=== PATIENT | female | born 1960 | race Caucasian/White ===

== ENCOUNTER 2018-03-02 09:22 | Inpatient (IN) ==
[2018-03-02] MEDS ORDERED: Sod Chloride 0.9% Inj 1,000 ML IV.SIG ONE ×2 (10:14→22:15)
--- NOTE | 2018-03-02 10:18 | ED ---
HPI General Chief complaint: Nausea/Vomiting/Diarrhea Stated complaint: N/V/D x 4 months Source: patient Mode of arrival: ambulatory Limitations: no limitations History of Present Illness HPI Narrative: Patient is a 58-year-old female with history of chronic diarrhea , presents to the emergency room with complaints of possible dehydration. Patient reports that for the past 4 months, she has had diarrhea about 3-4 episodes per day. She does follow-up with a candy maker, Dr. Thomas who performed an endoscopy last week which was essentially benign. Patient reports that she is due for colonoscopy next week. Patient reports that she has been having increased abdominal cramping in her mouth feels dry, reports that she is able to eat and drink but is concerned about possible dehydration. Patient reports that she does follow Dr. Downey as she has history of lymphoma, she did have CT of her chest, abdomen and pelvis in October which was benign. Patient denies any fevers or chills, reports 4 months of nausea, vomiting and diarrhea. Related Data Home Medications Medication Instructions Recorded Confirmed atorvastatin 20 mg PO DAILY 03/02/18 03/02/18 fenofibrate 50 mg PO DAILY 03/02/18 03/02/18 metformin 1,000 mg PO HS 03/02/18 03/02/18 omeprazole 20 mg PO DAILY 03/02/18 03/02/18 ondansetron [Zofran ODT] 4 mg PO TID PRN 03/02/18 03/02/18 Allergies Allergy/AdvReac Type Severity Reaction Status Date / Time No Known Allergies Allergy Unverified 03/02/18 09:30 Review of Systems ROS: all other systems reviewed are negative FORMERLY [facility], [facility]–1983 Medical History Medical History Diabetes (Acute) High cholesterol (Acute) History of appendicitis (Acute) History of benign tumor of tongue (Acute) History of chemotherapy (Acute) History of hysterectomy (Acute) History of lymphoma (Acute) Surgical History Surgical History History of arthroplasty of knee (Acute) Social History Social History Substance History: No History of Abuse Smoking Status: Current every day smoker Tobacco Type: Cigarettes How Often Do You Have a Drink Containing Alcohol: 2 to 4 times a month Recent Travel in [facility] within the Last 8 Weeks: No Recent Out of Country Travel within the Last 8 Weeks: No Immunization History Tetanus Immunization: Unsure Hx Influenza Vaccine This Season: No Exam Narrative Exam Narrative: GENERAL: NAD SKIN: Focused skin assessment warm/dry. HEAD: Atraumatic. Normocephalic. EYES: Pupils equal and round. No scleral icterus. No injection or drainage. ENT: No nasal bleeding or discharge. Mucous membranes pink and dry NECK: Trachea midline. No JVD. CARDIOVASCULAR: Regular rate and rhythm. No murmur appreciated. RESPIRATORY: No accessory muscle use. Clear to auscultation. Breath sounds equal bilaterally. GASTROINTESTINAL: Abdomen soft, non-tender, nondistended. Hepatic and splenic margins not palpable. MUSCULOSKELETAL: No obvious deformities. No clubbing. No cyanosis. No edema. NEUROLOGICAL: Awake and alert. No obvious cranial nerve deficits. Motor grossly within normal limits. Normal speech. PSYCHIATRIC: Appropriate mood and affect; insight and judgment normal. Course Initial Documented Vital Signs Pulse Rate 84 03/02/18 09:29 Respiratory Rate 18 03/02/18 09:29 Blood Pressure 122/72 03/02/18 09:29 Pulse Oximetry 95 03/02/18 09:29 Last Documented Vital Signs Temperature 98.8 F 03/02/18 09:30 Pulse Rate 80 03/02/18 13:58 Respiratory Rate 18 03/02/18 13:58 Blood Pressure 121/47 L 03/02/18 14:31 Pulse Oximetry 96 03/02/18 13:58 Medical Decision Making VEE Attestation VEE supervised visit: No MDM Narrative Medical decision making narrative: During the course of the patients emergency department visit, the patients history, examination, and differential diagnosis were reviewed with the patient. The patient was placed on a library monitor with oximetry and frequent blood pressure monitoring. The patient had an IV access obtained and blood work sent for analysis. The patient was initially provided IVF as well as IV zofran The patients laboratory studies were reviewed CT of abdomen and pelvis: wall thickening of the proximal half of the transverse colon with questionable submucosal edema and mild adjacent inflammation that could represent colitis - she did have an episode of hypotension while in the ER - plan to obs her Case reviewed with Dr. Santos's service who accepts pt for admission Medical Screen Exam Complete: Yes Emergency Medical Condition: Yes Differential Diagnosis Differential Diagnosis: electrolyte abnormality, dehydration, sbo, pancreatitis , hepatitis Lab Data Result diagrams: 03/02/18 10:15 03/02/18 10:15 Lab Results 03/02/18 03/02/18 03/02/18 Range/Units 09:55 10:15 10:15 CBC w Diff Auto diff final WBC 5.1 (4.0-11.0) th/mm3 RBC 2.95 L (4.00-5.30) mil/mm3 Hgb 11.3 L (11.6-15.3) gm/dL Hct 32.0 L (35.0-46.0) % MCV 108.2 H (80.0-100.0) fL MCH 38.3 H (27.0-34.0) pg MCHC 35.4 (32.0-36.0) % RDW 13.5 (11.6-17.2) % Plt Count 102 L (150-450) th/mm3 MPV 10.0 (7.0-11.0) fL Neut % (Auto) 78.4 H (16.0-70.0) % Lymph % (Auto) 11.5 (9.0-44.0) % [place] % (Auto) 8.0 (0.0-8.0) % Eos % (Auto) 1.1 (0.0-4.0) % Baso % (Auto) 1.0 (0.0-2.0) % Neut # (Auto) 3.9 (1.8-7.7) th/mm3 Lymph # (Auto) 0.6 L (1.0-4.8) th/mm3 [place] # (Auto) 0.4 (0.0-0.9) th/mm3 Eos # (Auto) 0.1 (0.0-0.4) th/mm3 Baso # (Auto) 0.1 (0.0-0.2) th/mm3 WBC Differential . Differential Comment . Sodium 141 (136-145) meq/L Potassium 3.0 L (3.5-5.1) meq/L Chloride 101 (98-107) meq/L Carbon Dioxide 26.9 (21.0-32.0) meq/L Anion Gap 13 (5-15) meq/L BUN 6 L (7-18) mg/dL Creatinine 0.95 (0.50-1.00) mg/dL Estimated GFR 60 L (>89) mL/min POC Glucose 159 H (68-110) mg/dl Random Glucose 149 H (74-106) mg/dL Calcium 7.4 L* (8.5-10.1) mg/dL Prot Corrected Calcium 7.7 L (8.5-10.1) mg/dL Total Bilirubin 1.9 H (0.2-1.0) mg/dL AST 309 H (15-37) U/L ALT 119 H (10-53) U/L Alkaline Phosphatase 210 H (45-117) U/L Total Protein 6.6 (6.4-8.2) g/dL Albumin 2.5 L (3.4-5.0) g/dL Lipase 309 (73-393) U/L Ur Collection Type Urine Color (Yellw/Straw) Urine Clarity (Clear) Urine pH (5.0-8.5) Ur Specific Mars (1.002-1.035) Urine Protein (Neg-Trace) mg/dL Urine Glucose (UA) (Negative) mg/dL Urine Ketones (Negative) mg/dL Urine Occult Blood (Negative) Urine Nitrate (Negative) Urine Bilirubin (Negative) Urine Ictotest (Negative) Urine Urobilinogen (Less than 2) mg/dL Ur Leukocyte Esterase (Negative) Urine RBC (0-3) /hpf Urine WBC (0-5) /hpf Urine WBC Clumps (None) Ur Squamous Epith Cells (0-5) /hpf Ur Transition Epith Cell (None) /hpf Amorphous Sediment (None) /hpf Urine Bacteria (None) /hpf Fine Granular Casts (None) /lpf Coarse Granular Casts (None) /lpf Urine Mucus (Occasional) /lpf Micro UA Comment Ur Microscopic Review Urine Culture Comments Urine Collection Time hours 03/02/18 Range/Units 11:35 CBC w Diff WBC (4.0-11.0) th/mm3 RBC (4.00-5.30) mil/mm3 Hgb (11.6-15.3) gm/dL Hct (35.0-46.0) % MCV (80.0-100.0) fL MCH (27.0-34.0) pg MCHC (32.0-36.0) % RDW (11.6-17.2) % Plt Count (150-450) th/mm3 MPV (7.0-11.0) fL Neut % (Auto) (16.0-70.0) % Lymph % (Auto) (9.0-44.0) % [place] % (Auto) (0.0-8.0) % Eos % (Auto) (0.0-4.0) % Baso % (Auto) (0.0-2.0) % Neut # (Auto) (1.8-7.7) th/mm3 Lymph # (Auto) (1.0-4.8) th/mm3 [place] # (Auto) (0.0-0.9) th/mm3 Eos # (Auto) (0.0-0.4) th/mm3 Baso # (Auto) (0.0-0.2) th/mm3 WBC Differential Differential Comment Sodium (136-145) meq/L Potassium (3.5-5.1) meq/L Chloride (98-107) meq/L Carbon Dioxide (21.0-32.0) meq/L Anion Gap (5-15) meq/L BUN (7-18) mg/dL Creatinine (0.50-1.00) mg/dL Estimated GFR (>89) mL/min POC Glucose (68-110) mg/dl Random Glucose (74-106) mg/dL Calcium (8.5-10.1) mg/dL Prot Corrected Calcium (8.5-10.1) mg/dL Total Bilirubin (0.2-1.0) mg/dL AST (15-37) U/L ALT (10-53) U/L Alkaline Phosphatase (45-117) U/L Total Protein (6.4-8.2) g/dL Albumin (3.4-5.0) g/dL Lipase (73-393) U/L Ur Collection Type Clean catch Urine Color Patty H (Yellw/Straw) Urine Clarity Slightly cloudy (Clear) Urine pH 6.0 (5.0-8.5) Ur Specific Mars 1.015 (1.002-1.035) Urine Protein 30 H (Neg-Trace) mg/dL Urine Glucose (UA) Negative (Negative) mg/dL Urine Ketones Trace H (Negative) mg/dL Urine Occult Blood Negative (Negative) Urine Nitrate Negative (Negative) Urine Bilirubin Moderate H (Negative) Urine Ictotest Positive H (Negative) Urine Urobilinogen 2.0 H (Less than 2) mg/dL Ur Leukocyte Esterase Trace H (Negative) Urine RBC 0-3 (0-3) /hpf Urine WBC 9-20 H (0-5) /hpf Urine WBC Clumps Few H (None) Ur Squamous Epith Cells Greater than 10 H (0-5) /hpf Ur Transition Epith Cell 1-5 H (None) /hpf Amorphous Sediment Moderate H (None) /hpf Urine Bacteria Moderate H (None) /hpf Fine Granular Casts 1-3 H (None) /lpf Coarse Granular Casts 1-3 H (None) /lpf Urine Mucus Moderate H (Occasional) /lpf Micro UA Comment Culture indicated Ur Microscopic Review Microscopic reviewed Urine Culture Comments Culture indicated Urine Collection Time 1135 hours Imaging Data Radiologist's impression: Abdomen/Pelvis CT 03/02/18 12:17 CONCLUSION: 1. Wall thickening of the proximal half of the transverse colon with a questionable submucosal edema and mild adjacent inflammation could represent a colitis. There is trace free fluid in the pelvis. 2. No other acute finding is identified and there are no lymphadenopathy. There is stable splenomegaly. 3. Nonacute findings include hepatomegaly with steatosis and severe atherosclerotic disease. Discharge Plan Discharge Disposition Patient Disposition: 30 Still Patient Discharge Details Diagnosis: Colitis, Acute UTI Physicians Team ED Provider: Shannon Casper Primary Care Provider: Jay Mcnair Rxs /Orders / Referrals /Forms Prescriptions: No Action atorvastatin 20 mg Tablet 20 mg PO DAILY RF: 0 omeprazole 20 mg Capsule,Delayed Release(Dr/Ec) 20 mg PO DAILY RF: 0 ondansetron [Zofran ODT] 4 mg Tablet,Disintegrating 4 mg PO TID PRN (Reason: Acid Reflux) RF: 0 metformin 1,000 mg Tablet Extended Release 24hr 1,000 mg PO HS RF: 0 fenofibrate 50 mg Capsule 50 mg PO DAILY RF: 0 Discharge Interventions Interventions: Vital Signs Last Done: 03/02/18 14:31 Status ED Status: In Room
[2018-03-02 10:43] LABS: Baso # (Auto) 0.1 th/mm3 (0.0-0.2); Eos # (Auto) 0.1 th/mm3 (0.0-0.4); Eos % (Auto) 1.1 % (0.0-4.0); Hemoglobin 11.3 gm/dL (11.6-15.3); Lymph # (Auto) 0.6 th/mm3 (1.0-4.8); Lymph % (Auto) 11.5 % (9.0-44.0); Mean Corpuscular HGB Conc 35.4 % (32.0-36.0); Mean Corpuscular Hemoglobin 38.3 pg (27.0-34.0); Mean Corpuscular Volume 108.2 fL (80.0-100.0); Mono # (Auto) 0.4 th/mm3 (0.0-0.9); Neut # (Auto) 3.9 th/mm3 (1.8-7.7); Neut % (Auto) 78.4 % (16.0-70.0); Platelet Count 102 th/mm3 (150-450); Red Blood Count 2.95 mil/mm3 (4.00-5.30); Red Cell Distribution Width 13.5 % (11.6-17.2); White Blood Count 5.1 th/mm3 (4.0-11.0)
[2018-03-02 11:18] LABS: Albumin 2.5 g/dL (3.4-5.0); Calcium 7.4 mg/dL (8.5-10.1); Carbon Dioxide 26.9 meq/L (21.0-32.0); Total Protein 6.6 g/dL (6.4-8.2)
[2018-03-02 11:39] LABS: Bilirubin,Urine Moderate (Negative); Clarity,Urine Slightly Cloudy (Clear); Glucose,Urine (UA) Negative (Negative); Leukocyte Esterase,Urine Trace (Negative); Nitrite,Urine Negative (Negative); Specific Gravity,Urine 1.015 (1.002-1.035)
[2018-03-02 11:50] LABS: Collection Time,Urine 1135 hours; Color,Urine Amber (Yellw/Straw); Ictotest,Urine Positive (Negative)
[2018-03-02 11:53] LABS: Amorphous Sediment,Urine Moderate /hpf; Bacteria,Urine Moderate /hpf; RBC,Urine 0-3 /hpf (0-3); Squamous Epithelial Cell,Urine Greater than 10 /hpf (0-5)
[2018-03-02 11:54] LABS: Mucus,Urine Moderate /lpf (Occasional)
[2018-03-02] MEDS: Sod Chloride 0.9% Inj 1,000 ML IV.SIG SCH (12:31)
--- NOTE | 2018-03-02 14:15 | CT ---
EXAM DATE: 03/02/2018 2:03 PM EDT AGE/SEX: 58 years / Female INDICATIONS: Nausea, vomiting and diarrhea for four months. General weakness. CLINICAL DATA: This is the patient's initial encounter. Patient reports that signs and symptoms have been present for 4 - 6 months and indicates a pain score of 0/10. MEDICAL/SURGICAL HISTORY: Lymphoma. Diabetes. Hypercholesterolemia. Appendectomy. Hysterecto my. ORAL CONTRAST: No oral contrast ingested. RADIATION DOSE: 5.91 CTDI (mGy) COMPARISON: POI, CT ABDOMEN AND PELVIS W/O CONTRAST, 10/30/2017. POI, CT ABDOMEN AND PELVIS W/O CONTRAST, 02/26/2017. . TECHNIQUE: Multiple contiguous axial images were obtained through the abdomen and pelvis following b olus infusion of 85 ml Omnipaque 350 (iohexol) nonionic water-soluble contrast as a single exam dos e. No oral contrast ingested. Using automated exposure control and adjustment of the mA and/or kV ac cording to patient size, radiation dose was kept as low as reasonably achievable to obtain optimal di agnostic quality images. DICOM format image data is available electronically for review and comparis on. FINDINGS: Lower chest: No acute abnormality is identified. At distal aspect of a central line is present within the right atrium. Hepatobiliary: Liver is enlarged measuring 23.8 cm in length. Density is abnormal indicating steatosi s. There is a small left lobe. No focal liver lesion is identified. Hepatic vasculature is within nor mal limits. No calcified gallstones are present. Kidneys: No hydronephrosis, stone, or mass. Adrenal Glands: Within normal limits. Spleen: The spleen measures 13.1 cm in length. There are too small hypoenhancing areas within the spl een measuring up to 4 mm. Pancreas: Within normal limits. Vascular: The aorta is nonaneurysmal. There is severe atherosclerotic disease. Bowel/Mesentery: Stomach and small bowel demonstrate no abnormality. There is stable prominent submuc osal fat in the cecum and ascending colon. The proximal half of the transverse colon demonstrates wal l thickening with possible submucosal edema. Questionable mild inflammation in the adjacent mesentery is present. The distal half of the transverse colon and more distal colon and rectum have a normal a ppearance. There is trace free fluid in the pelvis. No free air is seen. Abdominal Wall: No hernia is visualized. Retroperitoneum: No lymphadenopathy. Bladder: No wall thickening or mass. Reproductive: Within normal limits. Inguinal: No lymphadenopathy or hernia. Musculoskeletal: No acute osseous abnormality is identified. There is degenerative disc disease at L5 -S1. CONCLUSION: 1. Wall thickening of the proximal half of the transverse colon with a questionable submucosal edema and mild adjacent inflammation could represent a colitis. There is trace free fluid in the pelvis. 2. No other acute finding is identified and there are no lymphadenopathy. There is stable splenomega ly. 3. Nonacute findings include hepatomegaly with steatosis and severe atherosclerotic disease. Electronically signed by: Jay Hernandez MD 03/02/2018 2:13 PM EDT
[2018-03-02] MEDS ORDERED: Ciprofloxacin 400 MG/200 ML 400 MG/200 ML PIGGYBACK IV.SIG ONE (14:34)
[2018-03-02] MEDS ORDERED: Acetaminophen 325 MG Tablet PO PRN (14:48)
[2018-03-02] MEDS ORDERED: Dextrose 50% in Water 50 ML Vial IV.PUSH PRN (14:58)
[2018-03-02] MEDS ORDERED: Sod Chloride 0.9% Inj 1,000 ML IV.CONT SCH (15:00)
--- NOTE | 2018-03-02 15:43 | P.HP ---
History of Present Illness Primary Care Physician: Jay Mcnair Chief Complaint: Abdominal pain, nausea and vomiting History of Present Illness: This is a 58-year-old female patient with a known medical history of hyperlipidemia, diabetes and GERD who presented to the ED with complaints of abdominal pain, diarrhea, nausea and vomiting 4 months. 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 She also admits to having intermittent nausea and vomiting roughly 4 times per week. Patient underwent an endoscopy in October of this year, a stricture was found and this was dilated at that time. She does have a colonoscopy scheduled for next Sunday with Dr. Thomas, she has not had a colonoscopy for over 10 years now. She has been prescribed Zofran for the nausea and vomiting states that this is been ineffective for helping her symptoms. She has not taken anything for the diarrhea nor has been prescribed anything for the diarrhea. She states of the past couple days she has increasing abdominal cramping diffusely, states that she has been unable to eat or drink anything and concern for possible dehydration. It should be noted that patient has a history of lymphoma, has been in remission for 1-1/2 years, sees Dr. Downey in the outpatient setting. Supposedly patient had a CT of her chest, abdomen and pelvis in October which was benign. Patient denies any recent fevers, chills, cough, shortness breath, dysuria. Patient does admit to smoking one half pack per cigarettes per day. Does admit to drinking 2 glasses of alcohol a day. Follows closely with her PCP, Dr. Metz. - Diagnosis (1) Colitis (2) Acute UTI Review of Systems All other systems reviewed negative except as stated in HPI PMFSH - History History Provided By: Patient, Family Member - Medical History Medical History: Medical History (Last Reviewed 03/02/18 @ 10:19 by Shannon Casper) Diabetes High cholesterol History of appendicitis History of benign tumor of tongue History of chemotherapy History of hysterectomy History of lymphoma - Surgical History Surgical History: Surgical History (Last Updated 03/02/18 @ 16:07 by Elyse Krueger) History of appendectomy History of arthroplasty of knee History of partial hysterectomy History of tonsillectomy History of tubal ligation - Family History Family History: Family History (Last Updated 03/02/18 @ 16:07 by Elyse Krueger) Other No pertinent family history - Tobacco History Tobacco Use In Past 30 Days: Yes Smoking Status: Current every day smoker Tobacco Type: Cigarettes - Alcohol History How Often Do You Have a Drink Containing Alcohol: 2 to 4 times a month - Substance Use History Substance History: No History of Abuse - Travel History Recent Travel in the [place] Within the Last 8 Weeks: No Recent Travel Out of the Country Within the Last 8 Weeks: No - Immunization History Tetanus Immunization: Unsure Hx Influenza Vaccine This Season: No Medications and Allergies Active Medications: Active Medications Acetaminophen (Tylenol) 650 mg PO Q4H PRN PRN Reason: Temp > 100.4 Dextrose (D50w Vial) 50 ml IV.PUSH UNSCH PRN PRN Reason: PER HYPOGLYCEMIA PROTOCOL Glucagon (Glucagon Inj) 1 mg OTHER PRN PRN PRN Reason: for Hypoglycemia Protocol Sodium Chloride (Ns Inj) 1,000 mls @ 0 mls/hr IV.SIG BOLUS BRENDA Last Infusion: 03/02/18 14:28 Dose: Infused Potassium Chloride 20 meq/ (Lactated Ringer's) 1,010 mls @ 100 mls/hr IV.CONT .Q10H6M BRENDA Last Admin: 03/02/18 15:30 Dose: 100 mls/hr Insulin Aspart (Novolog Insulin Correctional Sugar Inj) 0 unit SQ ACHS BRENDA; Protocol Lactobacillus Acidophilus (Lactinex) 1 tab PO TID BRENDA Ondansetron HCl (Zofran Inj) 4 mg IV.PUSH Q6H PRN PRN Reason: NAUSEA OR VOMITING Sodium Chloride (Ns Flush) 2 ml IV.FLUSH PRN PRN PRN Reason: FLUSH AFTER USING IV ACCESS Last Admin: 03/02/18 10:22 Dose: 2 ml Allergies Allergy/AdvReac Type Severity Reaction Status Date / Time No Known Allergies Allergy Unverified 03/02/18 09:30 Home Medications Medication Instructions Recorded Confirmed Type atorvastatin 20 mg PO DAILY 03/02/18 03/02/18 History fenofibrate 50 mg PO DAILY 03/02/18 03/02/18 History metformin 1,000 mg PO HS 03/02/18 03/02/18 History omeprazole 20 mg PO DAILY 03/02/18 03/02/18 History ondansetron [Zofran ODT] 4 mg PO TID PRN 03/02/18 03/02/18 History Exam Vital signs: Vital Signs 03/02/18 09:29 03/02/18 09:30 03/02/18 10:26 Temperature 98.8 F Pulse Rate 84 100 H Respiratory Rate 18 18 Blood Pressure 122/72 120/78 Pulse Oximetry 95 97 97 03/02/18 12:32 03/02/18 13:58 03/02/18 14:31 Temperature Pulse Rate 84 80 Respiratory Rate 18 18 Blood Pressure 91/59 L 85/63 L 121/47 L Pulse Oximetry 96 96 03/02/18 14:48 Temperature Pulse Rate 86 Respiratory Rate 18 Blood Pressure 114/69 Pulse Oximetry 99 Intake & Output 03/01/18 03/02/18 03/02/18 18:59 06:59 18:59 Intake Total 2300 / 2300 Balance 2300 / 2300 Weight 50.3 kg Intake: IV 2300 / 2300 Cipro 400 MG/200 ML Inj 400 mg 200 / 200 In 200 ml @ 200 mls/hr IV.SIG ONCE ONE Rx#:[id number] NS Inj 1,000 ML @ Wide Open IV. 1999 SIG BOLUS BRENDA Rx#:[id number] Rocephin Inj 1,000 MG In NS Inj 100 / 100 100 ML @ 200 mls/hr IV.SIG ONCE ONE Rx#:[id number] Narrative: GENERAL: Well-developed, well-nourished patient in [facility]. Appears to be much older than stated age. SKIN: Warm and dry. No rash. HEAD: Normocephalic. Atraumatic. EYES: Pupils equal and round. No scleral icterus. No injection or drainage. ENT: No nasal bleeding or discharge. Mucous membranes pink and moist. NECK: Supple. Trachea midline. CARDIOVASCULAR: Regular rate and rhythm. S1, S2 noted. No murmur appreciated. RESPIRATORY: No accessory muscle use. Clear to auscultation. Breath sounds equal bilaterally. GASTROINTESTINAL: Abdomen soft, nondistended. Normoactive bowel sounds x4. Pain to palpation especially in left upper and lower quadrant. MUSCULOSKELETAL: No obvious deformities. Extremities without clubbing, cyanosis , or edema. NEUROLOGICAL: Awake and alert. No obvious cranial nerve deficits. Motor grossly within normal limits. 5/5 muscle strength in bilateral upper and lower extremities. Normal speech. PSYCHIATRIC: Appropriate mood and affect; insight and judgment normal. Results - Labs CBC & Chem 7: 03/02/18 10:15 03/02/18 10:15 Labs: Laboratory Results - last 24 hr 03/02/18 03/02/18 03/02/18 09:55 10:05 10:15 CBC w Diff Auto diff final WBC 5.1 RBC 2.95 L Hgb 11.3 L Hct 32.0 L MCV 108.2 H MCH 38.3 H MCHC 35.4 RDW 13.5 Plt Count 102 L MPV 10.0 Neut % (Auto) 78.4 H Lymph % (Auto) 11.5 Wilkes % (Auto) 8.0 Eos % (Auto) 1.1 Baso % (Auto) 1.0 Neut # (Auto) 3.9 Lymph # (Auto) 0.6 L Wilkes # (Auto) 0.4 Eos # (Auto) 0.1 Baso # (Auto) 0.1 WBC Differential . Differential Comment . Sodium Potassium Chloride Carbon Dioxide Anion Gap BUN Creatinine Estimated GFR POC Glucose 159 H Random Glucose Calcium Prot Corrected Calcium Magnesium 0.7 L Total Bilirubin AST ALT Alkaline Phosphatase Total Protein Albumin Lipase Ur Collection Type Urine Color Urine Clarity Urine pH Ur Specific Dumas Urine Protein Urine Glucose (UA) Urine Ketones Urine Occult Blood Urine Nitrate Urine Bilirubin Urine Ictotest Urine Urobilinogen Ur Leukocyte Esterase Urine RBC Urine WBC Urine WBC Clumps Ur Squamous Epith Cells Ur Transition Epith Cell Amorphous Sediment Urine Bacteria Fine Granular Casts Coarse Granular Casts Urine Mucus Micro UA Comment Ur Microscopic Review Urine Culture Comments Urine Collection Time 03/02/18 03/02/18 10:15 11:35 CBC w Diff WBC RBC Hgb Hct MCV MCH MCHC RDW Plt Count MPV Neut % (Auto) Lymph % (Auto) Wilkes % (Auto) Eos % (Auto) Baso % (Auto) Neut # (Auto) Lymph # (Auto) Wilkes # (Auto) Eos # (Auto) Baso # (Auto) WBC Differential Differential Comment Sodium 141 Potassium 3.0 L Chloride 101 Carbon Dioxide 26.9 Anion Gap 13 BUN 6 L Creatinine 0.95 Estimated GFR 60 L POC Glucose Random Glucose 149 H Calcium 7.4 L* Prot Corrected Calcium 7.7 L Magnesium Total Bilirubin 1.9 H AST 309 H ALT 119 H Alkaline Phosphatase 210 H Total Protein 6.6 Albumin 2.5 L Lipase 309 Ur Collection Type Clean catch Urine Color Patty H Urine Clarity Slightly cloudy Urine pH 6.0 Ur Specific Dumas 1.015 Urine Protein 30 H Urine Glucose (UA) Negative Urine Ketones Trace H Urine Occult Blood Negative Urine Nitrate Negative Urine Bilirubin Moderate H Urine Ictotest Positive H Urine Urobilinogen 2.0 H Ur Leukocyte Esterase Trace H Urine RBC 0-3 Urine WBC 9-20 H Urine WBC Clumps Few H Ur Squamous Epith Cells Greater than 10 H Ur Transition Epith Cell 1-5 H Amorphous Sediment Moderate H Urine Bacteria Moderate H Fine Granular Casts 1-3 H Coarse Granular Casts 1-3 H Urine Mucus Moderate H Micro UA Comment Culture indicated Ur Microscopic Review Microscopic reviewed Urine Culture Comments Culture indicated Urine Collection Time 1135 - Imaging Impressions Abdomen/Pelvis CT 03/02/18 12:17 CONCLUSION: 1. Wall thickening of the proximal half of the transverse colon with a questionable submucosal edema and mild adjacent inflammation could represent a colitis. There is trace free fluid in the pelvis. 2. No other acute finding is identified and there are no lymphadenopathy. There is stable splenomegaly. 3. Nonacute findings include hepatomegaly with steatosis and severe atherosclerotic disease. Caprini VTE Risk Assessment Caprini VTE Risk Assessment: No/Low Risk (score <= 1) Caprini Risk Assessment Model: Point Value = 1 Point Value = 2 Point Value = 3 Point Value = 5 Age 41-60 Minor surgery BMI > 25 kg/m2 Swollen legs Varicose veins or History of unexplained or recurrent spontaneous Oral contraceptives or hormone replacement Sepsis (< 1 month) Serious lung disease, including pneumonia (< 1 month) Abnormal pulmonary function Acute myocardial infarction Congestive heart failure (< 1 month) History of inflammatory bowel disease Medical patient at bed rest Age 61-74 Arthroscopic surgery Major open surgery (> 45 min) Laparoscopic surgery (> 45 min) Malignancy Confined to bed (> 72 hours) Immobilizing plaster cast Central venous access Age >= 75 History of VTE Family history of VTE Factor V Leiden Prothrombin [id number] Lupus anticoagulant Anticardiolipin antibodies Elevated serum homocysteine Heparin-induced thrombocytopenia Other congenital or acquired thrombophilia Stroke (< 1 month) Elective arthroplasty Hip, pelvis, or leg fracture Acute spinal cord injury (< 1 month) Prophylaxis Regimen: Total Risk Factor Score Risk Level Prophylaxis Regimen 0-1 Low Early ambulation 2 Moderate Order ONE of the following: *Sequential Compression Device (SCD) *Heparin 5000 units SQ BID 3-4 Higher Order ONE of the following medications: *Heparin 5000 units SQ TID *Enoxaparin/Lovenox 40 mg SQ daily (WT < 150 kg, CrCl > 30 mL/min) *Enoxaparin/Lovenox 30 mg SQ daily (WT < 150 kg, CrCl > 10-29 mL/min) *Enoxaparin/Lovenox 30 mg SQ BID (WT < 150 kg, CrCl > 30 mL/min) AND/OR *Sequential Compression Device (SCD) 5 or more Highest Order ONE of the following medications: *Heparin 5000 units SQ TID (Preferred with Epidurals) *Enoxaparin/Lovenox 40 mg SQ daily (WT < 150 kg, CrCl > 30 mL/min) *Enoxaparin/Lovenox 30 mg SQ daily (WT < 150 kg, CrCl > 10-29 mL/min) *Enoxaparin/Lovenox 30 mg SQ BID (WT < 150 kg, CrCl > 30 mL/min) AND *Sequential Compression Device (SCD) Assessment and Plan - Assessment (1) Colitis Code(s): K52.9 - Noninfective gastroenteritis and colitis, unspecified Status : Acute (2) Acute UTI Code(s): N39.0 - Urinary tract infection, site not specified Status: Acute - Plan This is a 58-year-old patient with Acute colitis Chronic diarrhea 4 months Chronic nausea and vomiting Transaminitis -Abdomen/pelvis CT showing wall thickening of the proximal half of the transverse colon with a questionable submucosal edema and mild adjacent inflammation could represent a colitis. There is trace free fluid in the pelvis. There is stable splenomegaly. Nonacute findings include hepatomegaly with steatosis and severe atherosclerotic disease. -Stool cultures ordered and pending, including C. difficile. Follow. -Started on Flagyl and Cipro IV in ED. Will continue. -Ensure hydration. Continue IV fluids. -Patient follows with Dr. Thomas, actually has a colonoscopy scheduled for next week. Will consult for further recommendations. Pending input. Abnormal UA, rule out UTI -UA showing presence of bacteria and white blood cells. Await urine culture growth. Pending. Given IV Rocephin in ED. Patient is getting ciprofloxacin for acute colitis. Electrolyte imbalance including Hypokalemia Hypomagnesia Hypocalcemia Suspect secondary to nausea and vomiting, diarrhea -K3.0. Mag 0.7. Replete as ordered. Continue to monitor. Alcohol abuse: Patient admits to drinking on average to glasses of vodka a day. Patient does state she has more than this at times depending on the day. Encourage alcohol cessation. DVT Prophylaxis: SCDs.
[2018-03-02] MEDS: Insulin NovoLOG Aspart Correctional Sugar Inj SQ SCH ×2 (16:53→21:19)
[2018-03-02] MEDS ORDERED: Calcium Chloride Inj 1 GM in Sodium Chlor 0.9% Inj 100 ML IV.SIG ONE ×2 (17:00→20:00)
[2018-03-02] MEDS: Lactobacillus Acidophilus/L. Spores Tablet PO SCH (17:04)
[2018-03-02] MEDS: Mag Sulf 1 gm/100 ml Premix 100 ML IV.SIG SCH ×2 (17:04→18:14)
[2018-03-02] MEDS ORDERED: Ciprofloxacin 400 MG/200 ML 400 MG/200 ML PIGGYBACK IV.SIG SCH (22:00)
[2018-03-03] MEDS ORDERED: Sod Chloride 0.9% Inj 1,000 ML IV.SIG ONE (00:16)
[2018-03-03] MEDS: Sod Chloride 0.9% Inj 1,000 ML IV.SIG SCH (00:22)
[2018-03-03] MEDS ORDERED: Sod Chloride 0.9% Inj 1,000 ML IV.SIG SCH ×2 (01:58→22:38)
[2018-03-03 03:22] LABS: Potassium 3.3 meq/L (3.5-5.1)
[2018-03-03 03:23] LABS: Carbon Dioxide 21.2 meq/L (21.0-32.0)
[2018-03-03 03:24] LABS: Albumin 1.9 g/dL (3.4-5.0); Calcium 6.7 mg/dL (8.5-10.1)
[2018-03-03 03:50] LABS: Baso % (Auto) 0.3 % (0.0-2.0); Eos % (Auto) 0.9 % (0.0-4.0); Hematocrit 27.1 % (35.0-46.0); Hemoglobin 9.2 gm/dL (11.6-15.3); Lymph # (Auto) 0.7 th/mm3 (1.0-4.8); Lymph % (Auto) 18.4 % (9.0-44.0); Mean Corpuscular Hemoglobin 37.3 pg (27.0-34.0); Mean Corpuscular Volume 109.6 fL (80.0-100.0); Mean Platelet Volume 9.6 fL (7.0-11.0); Mono # (Auto) 0.3 th/mm3 (0.0-0.9); Mono % (Auto) 8.1 % (0.0-8.0); Neut # (Auto) 2.7 th/mm3 (1.8-7.7); Neut % (Auto) 72.3 % (16.0-70.0); Platelet Count 74 th/mm3 (150-450); Red Blood Count 2.47 mil/mm3 (4.00-5.30); Red Cell Distribution Width 13.1 % (11.6-17.2); White Blood Count 3.7 th/mm3 (4.0-11.0)
[2018-03-03 04:14] LABS: Platelet Morphology Normal (Normal)
[2018-03-03] MEDS ORDERED: Potassium Chlor 20 mEq Premix 20 MEQ/100 ML PIGGYBACK IV.SIG ONE (04:56)
[2018-03-03] MEDS: Mag Sulf 1 gm/100 ml Premix 100 ML IV.SIG SCH ×4 (05:14→09:57)
[2018-03-03] MEDS: Potassium Chlor 10 mEq Premix 10 MEQ/100 ML PIGGYBACK IV.SIG SCH ×2 (05:38→06:40)
[2018-03-03] MEDS: Insulin NovoLOG Aspart Correctional Sugar Inj SQ SCH ×4 (09:54→21:09)
[2018-03-03] MEDS: Lactobacillus Acidophilus/L. Spores Tablet PO SCH ×3 (09:55→19:30)
[2018-03-03 10:09] LABS: Baso % (Auto) 0.9 % (0.0-2.0); Eos % (Auto) 1.3 % (0.0-4.0); Hematocrit 25.3 % (35.0-46.0); Hemoglobin 8.5 gm/dL (11.6-15.3); Lymph # (Auto) 0.6 th/mm3 (1.0-4.8); Lymph % (Auto) 17.9 % (9.0-44.0); Mean Corpuscular HGB Conc 33.6 % (32.0-36.0); Mean Corpuscular Hemoglobin 36.9 pg (27.0-34.0); Mean Corpuscular Volume 109.8 fL (80.0-100.0); Mean Platelet Volume 9.3 fL (7.0-11.0); Mono # (Auto) 0.3 th/mm3 (0.0-0.9); Mono % (Auto) 9.3 % (0.0-8.0); Neut # (Auto) 2.6 th/mm3 (1.8-7.7); Neut % (Auto) 70.6 % (16.0-70.0); Platelet Count 69 th/mm3 (150-450); White Blood Count 3.5 th/mm3 (4.0-11.0)
[2018-03-03 10:23] LABS: Alanine Aminotransferase 84 U/L (10-53); Albumin 1.9 g/dL (3.4-5.0); Alkaline Phosphatase 137 U/L (45-117); Anion Gap 9 meq/L (5-15); Aspartate Aminotransferase 210 U/L (15-37); Blood Urea Nitrogen 4 mg/dL (7-18); Calcium 6.3 mg/dL (8.5-10.1); Carbon Dioxide 21.7 meq/L (21.0-32.0); Chloride 111 meq/L (98-107); Glomerular Filtration Rate Greater Than 89 mL/min (>89); Glucose,Random 133 mg/dL (74-106); Magnesium 1.7 mg/dL (1.5-2.5); Phosphorus 1.4 mg/dL (2.5-4.9); Potassium 3.4 meq/L (3.5-5.1); Sodium 142 meq/L (136-145); Total Protein 4.8 g/dL (6.4-8.2)
[2018-03-03 10:37] LABS: Platelet Estimate Normal (Normal); Platelet Morphology Normal (Normal); RBC Morphology Normal (Normal)
--- NOTE | 2018-03-03 11:13 | P.PN ---
Subjective Interval history: Follow up colitis. Patient seen and examined, lying in bed awake and alert. Reports of hypotension overnight, requiring IVF bolus and sent up to ICU for closer monitoring. Does complain of nausea. No vomiting overnight. Continued diarrhea. Awaiting stool cultures. Pain is still present. Physical Exam Vital signs: Vital Signs 03/02/18 12:32 03/02/18 13:58 03/02/18 14:31 Temperature Pulse Rate 84 80 Respiratory Rate 18 18 Blood Pressure 91/59 L 85/63 L 121/47 L Pulse Oximetry 96 96 03/02/18 14:48 03/02/18 16:00 03/02/18 20:00 Temperature 97.9 F 98.6 F Pulse Rate 86 84 77 Respiratory Rate 18 16 20 Blood Pressure 114/69 100/57 L 84/51 L Pulse Oximetry 99 98 96 03/02/18 21:30 03/03/18 00:00 03/03/18 00:15 Temperature 99.2 F Pulse Rate 81 Respiratory Rate 20 Blood Pressure 74/54 L 85/47 L 74/58 L Pulse Oximetry 96 03/03/18 00:30 03/03/18 01:50 03/03/18 03:40 Temperature Pulse Rate 94 H Respiratory Rate 19 Blood Pressure 76/60 L 75/58 L 73/54 L Pulse Oximetry 03/03/18 03:42 03/03/18 04:00 03/03/18 04:12 Temperature 99.7 F H Pulse Rate 60 78 84 Respiratory Rate 23 21 28 H Blood Pressure 99/55 L 83/52 L 102/51 L Pulse Oximetry 03/03/18 05:00 03/03/18 06:00 03/03/18 07:48 Temperature 98.6 F Pulse Rate 80 86 Respiratory Rate 19 22 Blood Pressure 113/61 100/58 L Pulse Oximetry 95 Intake & Output 03/02/18 03/03/18 03/03/18 18:59 06:59 18:59 Intake Total 3080 / 3080 4720 / 4720 440 / 440 Output Total 700 / 700 401 / 401 Balance 3080 / 3080 4020 / 4020 39 / 39 Weight 52.9 kg 56.4 kg Intake: IV 2600 / 2600 4720 / 4720 200 / 200 KCl Inj 20 MEQ In LR 1000 mL 1010 / 1010 Inj 1,000 ML @ 100 mls/hr IV. CONT .Q10H6M BRENDA Rx#:[id number] NS Inj 1,000 ML @ 100 mls/hr IV 100 / 100 .CONT .Q10H BRENDA Rx#:[id number] Calcium Chloride Inj 1 GM In NS 110 / 110 Inj 100 ML @ 110 mls/hr IV.SIG ONCE ONE Rx#:[id number] Cipro 400 MG/200 ML Inj 400 mg 200 / 200 200 / 200 In 200 ml @ 200 mls/hr IV.SIG Q8H BRENDA Rx#:[id number] Magnesium Sulfate 1 gm/D5W 100 100 / 100 200 / 200 100 / 100 ml Premix 100 ML @ 100 mls/hr IV.SIG Q1H BRENDA Rx#:[id number] KCl 10 mEq Premix Inj 10 meq In 100 / 100 100 / 100 100 ml @ 100 mls/hr IV.SIG Q1H BRENDA Rx#:[id number] NS Inj 1,000 ML @ Wide Open IV. 1999 / 1999 3000 / 3000 SIG BOLUS ONE Rx#:[id number] Rocephin Inj 1,000 MG In NS Inj 100 / 100 100 ML @ 200 mls/hr IV.SIG ONCE ONE Rx#:[id number] Flagyl 500 MG Inj 100 ML @ 100 100 / 100 100 / 100 mls/hr IV.SIG Q8H BRENDA Rx#: [id number] Oral 480 / 480 240 / 240 Output: Urine 700 / 700 400 / 400 Stool Other: # Voids 3 Date of Last Bowel Movement 03/03/18 # Bowel Movements 2 Weight On Admission 52.9 kg Narrative: GENERAL: Well-developed, well-nourished patient in NAD. Appears to be much older than stated age. SKIN: Warm and dry. No rash. HEAD: Normocephalic. Atraumatic. EYES: Pupils equal and round. No scleral icterus. No injection or drainage. ENT: No nasal bleeding or discharge. Mucous membranes pink and moist. NECK: Supple. Trachea midline. CARDIOVASCULAR: Regular rate and rhythm. S1, S2 noted. No murmur appreciated. RESPIRATORY: No accessory muscle use. Clear to auscultation. Breath sounds equal bilaterally. GASTROINTESTINAL: Abdomen soft, nondistended. Normoactive bowel sounds x4. Pain to palpation in midepigastric area. MUSCULOSKELETAL: No obvious deformities. Extremities without clubbing, cyanosis , or edema. NEUROLOGICAL: Awake and alert. No obvious cranial nerve deficits. Motor grossly within normal limits. 5/5 muscle strength in bilateral upper and lower extremities. Normal speech. PSYCHIATRIC: Appropriate mood and affect; insight and judgment normal. Results - Labs CBC & Chem 7: 03/03/18 09:55 03/03/18 09:55 Laboratory Results - last 24 hr 03/02/18 03/02/18 03/02/18 10:05 10:15 11:35 CBC w Diff WBC RBC Hgb Hct MCV MCH MCHC RDW Plt Count MPV Neut % (Auto) Lymph % (Auto) [place] % (Auto) Eos % (Auto) Baso % (Auto) Neut # (Auto) Lymph # (Auto) [place] # (Auto) Eos # (Auto) Baso # (Auto) WBC Differential Diff Scan Differential Comment Platelet Estimate Platelet Morphology RBC Morphology Sodium Potassium Chloride Carbon Dioxide 26.9 Anion Gap 13 BUN 6 L Creatinine 0.95 Estimated GFR 60 L POC Glucose Random Glucose 149 H Lactic Acid Calcium 7.4 L* Prot Corrected Calcium 7.7 L Phosphorus Magnesium 0.7 L Total Bilirubin 1.9 H AST 309 H ALT 119 H Alkaline Phosphatase 210 H Total Protein 6.6 Albumin 2.5 L Lipase 309 Ur Collection Type Clean catch Urine Color [place] H Urine Clarity Slightly cloudy Urine pH 6.0 Ur Specific [place] 1.015 Urine Protein 30 H Urine Glucose (UA) Negative Urine Ketones Trace H Urine Occult Blood Negative Urine Nitrate Negative Urine Bilirubin Moderate H Urine Ictotest Positive H Urine Urobilinogen 2.0 H Ur Leukocyte Esterase Trace H Urine RBC 0-3 Urine WBC 9-20 H Urine WBC Clumps Few H Ur Squamous Epith Cells Greater than 10 H Ur Transition Epith Cell 1-5 H Amorphous Sediment Moderate H Urine Bacteria Moderate H Fine Granular Casts 1-3 H Coarse Granular Casts 1-3 H Urine Mucus Moderate H Micro UA Comment Culture indicated Ur Microscopic Review Microscopic reviewed Urine Culture Comments Culture indicated Urine Collection Time 1135 Eosinophil Stool Smear Stl C.difficile Tox PCR St C. diff Tox Epid 027 03/02/18 03/02/18 03/02/18 16:52 16:55 16:55 CBC w Diff WBC RBC Hgb Hct MCV MCH MCHC RDW Plt Count MPV Neut % (Auto) Lymph % (Auto) [place] % (Auto) Eos % (Auto) Baso % (Auto) Neut # (Auto) Lymph # (Auto) [place] # (Auto) Eos # (Auto) Baso # (Auto) WBC Differential Diff Scan Differential Comment Platelet Estimate Platelet Morphology RBC Morphology Sodium Potassium Chloride Carbon Dioxide Anion Gap BUN Creatinine Estimated GFR POC Glucose 96 Random Glucose Lactic Acid Calcium Prot Corrected Calcium Phosphorus Magnesium Total Bilirubin AST ALT Alkaline Phosphatase Total Protein Albumin Lipase Ur Collection Type Urine Color Urine Clarity Urine pH Ur Specific [place] Urine Protein Urine Glucose (UA) Urine Ketones Urine Occult Blood Urine Nitrate Urine Bilirubin Urine Ictotest Urine Urobilinogen Ur Leukocyte Esterase Urine RBC Urine WBC Urine WBC Clumps Ur Squamous Epith Cells Ur Transition Epith Cell Amorphous Sediment Urine Bacteria Fine Granular Casts Coarse Granular Casts Urine Mucus Micro UA Comment Ur Microscopic Review Urine Culture Comments Urine Collection Time Eosinophil Stool Smear None seen Stl C.difficile Tox PCR Negative St C. diff Tox Epid 027 Negative 03/02/18 03/03/18 03/03/18 21:17 02:20 02:20 CBC w Diff Slide review pending WBC 3.7 L RBC 2.47 L Hgb 9.2 L D Hct 27.1 L MCV 109.6 H MCH 37.3 H MCHC 34.0 RDW 13.1 Plt Count 74 L MPV 9.6 Neut % (Auto) 72.3 H Lymph % (Auto) 18.4 [place] % (Auto) 8.1 H Eos % (Auto) 0.9 Baso % (Auto) 0.3 Neut # (Auto) 2.7 Lymph # (Auto) 0.7 L [place] # (Auto) 0.3 Eos # (Auto) 0.0 Baso # (Auto) 0.0 WBC Differential . Diff Scan Auto diff confirmed Differential Comment . Platelet Estimate Low L Platelet Morphology Normal RBC Morphology Sodium 142 Potassium 3.3 L Chloride 111 H D Carbon Dioxide 21.2 Anion Gap 10 BUN 4 L Creatinine 0.73 Estimated GFR 82 L POC Glucose 103 Random Glucose 103 Lactic Acid Calcium 6.7 L* Prot Corrected Calcium 7.8 L Phosphorus Magnesium Total Bilirubin 1.1 H AST 237 H ALT 91 H Alkaline Phosphatase 151 H Total Protein 5.0 L D Albumin 1.9 L D Lipase Ur Collection Type Urine Color Urine Clarity Urine pH Ur Specific [place] Urine Protein Urine Glucose (UA) Urine Ketones Urine Occult Blood Urine Nitrate Urine Bilirubin Urine Ictotest Urine Urobilinogen Ur Leukocyte Esterase Urine RBC Urine WBC Urine WBC Clumps Ur Squamous Epith Cells Ur Transition Epith Cell Amorphous Sediment Urine Bacteria Fine Granular Casts Coarse Granular Casts Urine Mucus Micro UA Comment Ur Microscopic Review Urine Culture Comments Urine Collection Time Eosinophil Stool Smear Stl C.difficile Tox PCR St C. diff Tox Epid 027 03/03/18 03/03/18 03/03/18 02:20 02:20 07:34 CBC w Diff WBC RBC Hgb Hct MCV MCH MCHC RDW Plt Count MPV Neut % (Auto) Lymph % (Auto) [place] % (Auto) Eos % (Auto) Baso % (Auto) Neut # (Auto) Lymph # (Auto) [place] # (Auto) Eos # (Auto) Baso # (Auto) WBC Differential Diff Scan Differential Comment Platelet Estimate Platelet Morphology RBC Morphology Sodium Potassium Chloride Carbon Dioxide Anion Gap BUN Creatinine Estimated GFR POC Glucose 168 H Random Glucose Lactic Acid 1.7 Calcium Prot Corrected Calcium Phosphorus Magnesium 1.1 L Total Bilirubin AST ALT Alkaline Phosphatase Total Protein Albumin Lipase Ur Collection Type Urine Color Urine Clarity Urine pH Ur Specific [place] Urine Protein Urine Glucose (UA) Urine Ketones Urine Occult Blood Urine Nitrate Urine Bilirubin Urine Ictotest Urine Urobilinogen Ur Leukocyte Esterase Urine RBC Urine WBC Urine WBC Clumps Ur Squamous Epith Cells Ur Transition Epith Cell Amorphous Sediment Urine Bacteria Fine Granular Casts Coarse Granular Casts Urine Mucus Micro UA Comment Ur Microscopic Review Urine Culture Comments Urine Collection Time Eosinophil Stool Smear Stl C.difficile Tox PCR St C. diff Tox Epid 027 03/03/18 03/03/18 09:55 09:55 CBC w Diff Slide review pending WBC 3.5 L RBC 2.30 L Hgb 8.5 L Hct 25.3 L MCV 109.8 H MCH 36.9 H MCHC 33.6 RDW 13.0 Plt Count 69 L MPV 9.3 Neut % (Auto) 70.6 H Lymph % (Auto) 17.9 [place] % (Auto) 9.3 H Eos % (Auto) 1.3 Baso % (Auto) 0.9 Neut # (Auto) 2.6 Lymph # (Auto) 0.6 L [place] # (Auto) 0.3 Eos # (Auto) 0.0 Baso # (Auto) 0.0 WBC Differential . Diff Scan Auto diff confirmed Differential Comment . Platelet Estimate Normal Platelet Morphology Normal RBC Morphology Normal Sodium 142 Potassium 3.4 L Chloride 111 H Carbon Dioxide 21.7 Anion Gap 9 BUN 4 L Creatinine 0.64 Estimated GFR Greater than 89 POC Glucose Random Glucose 133 H Lactic Acid Calcium 6.3 L* Prot Corrected Calcium 7.4 L* Phosphorus 1.4 L Magnesium 1.7 D Total Bilirubin 1.1 H AST 210 H ALT 84 H Alkaline Phosphatase 137 H Total Protein 4.8 L Albumin 1.9 L Lipase Ur Collection Type Urine Color Urine Clarity Urine pH Ur Specific [place] Urine Protein Urine Glucose (UA) Urine Ketones Urine Occult Blood Urine Nitrate Urine Bilirubin Urine Ictotest Urine Urobilinogen Ur Leukocyte Esterase Urine RBC Urine WBC Urine WBC Clumps Ur Squamous Epith Cells Ur Transition Epith Cell Amorphous Sediment Urine Bacteria Fine Granular Casts Coarse Granular Casts Urine Mucus Micro UA Comment Ur Microscopic Review Urine Culture Comments Urine Collection Time Eosinophil Stool Smear Stl C.difficile Tox PCR St C. diff Tox Epid 027 Microbiology 03/02/18 11:35 Clean Catch Urine Urine Culture - Final 50-100,000 cfu/mL mixed [place] (probable contaminants ) 03/02/18 16:55 Stool Stool for WBCs - Final No WBC's seen - Imaging Impressions Abdomen/Pelvis CT 03/02/18 12:17 CONCLUSION: 1. Wall thickening of the proximal half of the transverse colon with a questionable submucosal edema and mild adjacent inflammation could represent a colitis. There is trace free fluid in the pelvis. 2. No other acute finding is identified and there are no lymphadenopathy. There is stable splenomegaly. 3. Nonacute findings include hepatomegaly with steatosis and severe atherosclerotic disease. Assessment and Plan - Assessment (1) Colitis Code(s): K52.9 - Noninfective gastroenteritis and colitis, unspecified Status : Acute (2) Acute UTI Code(s): N39.0 - Urinary tract infection, site not specified Status: Acute - Plan This is a 58-year-old patient with Acute colitis Chronic diarrhea 4 months Chronic nausea and vomiting Transaminitis -Abdomen/pelvis CT showing wall thickening of the proximal half of the transverse colon with a questionable submucosal edema and mild adjacent inflammation could represent a colitis. There is trace free fluid in the pelvis. There is stable splenomegaly. Nonacute findings include hepatomegaly with steatosis and severe atherosclerotic disease. -Stool cultures ordered and pending. C diff negative. -Started on Flagyl and Cipro IV in ED. Will continue. -Ensure hydration. Continue IV fluids. Was given NS bolus overnight. -Patient follows with Dr. Thomas, actually has a colonoscopy scheduled for next week. -Consulted GI for further recommendations. Pending input. -Control nausea, Phenergan available as needed. Control pain, IV morphine available per pain scale. -Checking hepatitis panel. -Supportive care. Abnormal UA, rule out UTI -UA showing presence of bacteria and white blood cells. Await urine culture growth. Pending. -Given IV Rocephin in ED. Patient is getting ciprofloxacin for acute colitis. Electrolyte imbalance including Hypokalemia Hypomagnesia Hypocalcemia Suspect secondary to nausea and vomiting, diarrhea -Replete as ordered. Continue to monitor. Alcohol abuse: Patient admits to drinking on average to glasses of vodka a day. Patient does state she has more than this at times depending on the day. Encourage alcohol cessation. DVT Prophylaxis: SCDs. Discharge Planning: Awaiting clinical improvement and GI consult.
[2018-03-03] MEDS: Morphine Inj 4 MG/ML Vial IV.PUSH PRN (11:58)
[2018-03-03] MEDS: Ciprofloxacin 400 MG/200 ML 400 MG/200 ML PIGGYBACK IV.SIG SCH ×2 (12:05→19:30)
[2018-03-03] MEDS ORDERED: Potassium Phosphate 500 MG Soluble Tablet PO PRN ×2 (13:19)
[2018-03-03] MEDS ORDERED: Potassium Chlor 20 mEq Premix 20 MEQ/100 ML PIGGYBACK IV.SIG PRN (13:19)
[2018-03-03] MEDS ORDERED: Potassium Phosphate Inj 30 MMOL in Sodium Chlor 0.9% Inj 250 ML IV.SIG PRN (13:19)
[2018-03-03] MEDS ORDERED: Magnesium Oxide 400 MG Tablet PO PRN (13:19)
[2018-03-03] MEDS ORDERED: Sodium Phosphate Inj 30 MMOL in Sodium Chlor 0.9% Inj 250 ML IV.SIG PRN (13:19)
[2018-03-03] MEDS ORDERED: Magnesium Sulfate Inj 4 GM in Sodium Chlor 0.9% Inj 92 ML IV.SIG PRN (13:19)
[2018-03-03] MEDS ORDERED: Potassium Chloride 25 MEQ Effervescent Tablet PO PRN (13:19)
[2018-03-03 14:14] LABS: Chol/HDL Ratio 15.38 Ratio; HDL Cholesterol 6.5 mg/dL (40.0-60.0)
[2018-03-03 14:36] LABS: % Iron Saturation 25.7 % (20-50)
[2018-03-03] MEDS: Magnesium Sulfate Inj 2 GM in Sodium Chlor 0.9% Inj 96 ML IV.SIG PRN (14:52)
[2018-03-03 15:13] LABS: Hepatitis A IgM Antibody Nonreactive (Nonreactive); Hepatitits B Surface Antigen Nonreactive (Nonreactive)
[2018-03-03 15:32] LABS: Reticulocyte Percent 2.6 % (0.4-3.0)
--- NOTE | 2018-03-03 16:16 | P.DIET ---
Nutritional Evaluation Type of nutrition evaluation: initial Nutrition screening: Weight Loss > 10 lbs Subjective Oral Diet Tolerance Assessment Indicates: Nausea, Vomiting Subjective Comments: Pt reports chronic diarrhea, nausea and vomiting x 4 months. She reports unintentional wt loss Objective - Diagnosis Abdominal pain, nausea and vomiting x 4 months - Objective [place] body weight: 48 kg Body Weight Used for Calculations: Actual (52.9kg) Energy Needs - Lower Range (kCal/kg): 28 Energy Needs - Upper Range (kCal/kg): 33 Lower Limit kCal/kg (kCals): 1,481 Upper Limit kCal/kg (kCals): 1,746 Lower Limit Protein Factor (Grams per Kg): 1.2 Upper Limit Protein Factor (Grams per Kg): 1.5 Lower Protein Needs (Protein): 63 Upper Protein Needs (Protein): 79 Fluid Factor (ml/kg): 35 Estimated Fluid Needs (ml): 1,852 Dietitian Reviewed in Medical Record: Current diet, Curent medications, Intake & Output, Labs, Medical history Diet Order: CL Objective Comments: PMH: HTN, DM, GERD, chronic diarrhea, HLD, hx lymphoma s/p chemotherapy Meds include: Lactinex Labs include: K+ 3.4, Glu 133, Ca 6.3, Cor Ca 7.4, Iron 37, Triglycerides 520 +2BM's Assessment Assessment: Pt at nutritional risk r/t dx and recent unintentional wt loss. Pt admitted for abdominal pain, nausea and vomiting. She is currently on a CL diet, adequate po intake has not yet been established. Reviewed MD notes, labs, POC. Will monitor diet advancement and po intake, providing supplements if necessary. Recommendations: CL diet, monitoring clinical course. Dietitian to Monitor: Lab values, Intake & Output, Diet tolerance, Weight change , PO Intake, Diet advancement, Medical course
--- NOTE | 2018-03-03 18:11 | MB ---
cc: Gypsy Shankar MD DATE: 03/03/2018 REFERRING PHYSICIAN: Norm Santos MD REASON FOR REFERRAL: Diarrhea. Thank you for the consultation. HISTORY OF PRESENT ILLNESS: A 58-year-old lady who has multiple medical problems including diabetes and hyperlipidemia. The patient complaining of abdominal pain and significant diarrhea, nausea, vomiting. She stated that this has been going on for 4 months where she has watery diarrhea. She was seen by Dr. Tinsley as an outpatient and she had an upper endoscopy in August but not a colonoscopy. Then, he saw her recently and told her that he was going to do a colonoscopy on her this Sunday. The patient was noted to have a lymphoma and she received chemotherapy until September, and he told her at that time, he wanted to wait until she was a little bit stronger from the chemo. The patient denies any rectal bleeding. She has a few bowel movements, mostly watery, almost clear sometimes, and she has general weakness, fatigue, most likely related to electrolyte imbalance. She had a CT of the abdomen, pelvis and chest in October, which was negative. No other abnormality at this time. REVIEW OF SYSTEMS: All 12 points negative except for HPI. PAST MEDICAL HISTORY: Significant for hyperlipidemia, diabetes, lymphoma, benign tumor of the tongue. She received chemotherapy for the lymphoma. PAST SURGICAL HISTORY: Appendectomy, hysterectomy, arthroscopy x2, tonsillectomy, tubal ligation. FAMILY HISTORY: Noncontributory. SOCIAL HISTORY: Positive for tobacco but none currently. Rare alcohol use. No drugs. No recent travel. MEDICATIONS: Reviewed in the chart. ALLERGIES: NONE. PHYSICAL EXAMINATION: GENERAL: Alert, oriented, in no acute distress. VITAL SIGNS: Stable. HEENT: Pupils round, reactive to light. NECK: Supple. CHEST: Clear to auscultation and percussion. CARDIAC: Regular rate and rhythm. No murmur or gallop. ABDOMEN: Soft, nondistended, mild discomfort. Positive bowel sounds. No hepatosplenomegaly that I can appreciate. EXTREMITIES: No edema, clubbing or cyanosis. NEUROLOGIC: Alert and oriented. No acute distress. No focal abnormality. PSYCHOLOGIC: Appropriate. LABORATORY DATA: White count on admission was 5.1, now it is 3.5. Hemoglobin is 8.5, down from 11.3. Platelets are 69, down from 102. C. diff was negative. Hepatitis was negative. The patient has a total bilirubin of 1.1, AST 210, ALT 84, alkaline phosphatase 137. Triglycerides 520, cholesterol 100. Lipase was 309. CT of the abdomen and pelvis, wall thickening of the proximal half of the transverse colon with questionable submucosal edema and mild adjacent inflammation could be a colitis, trace of fluid in the pelvis, no acute findings to suggest lymphoma, stable splenomegaly. ASSESSMENT AND PLAN: A 58-year-old lady who has a history of lymphoma. It does not seem that she has recurrence on CT scan, but currently, she has pancytopenia with a drop in her hemoglobin and platelets. I recommend doing an upper endoscopy and a colonoscopy. We will plan on doing that tomorrow. We will monitor her hemoglobin and see if we need to give packed red blood cells. Hematology consult for the pancytopenia. Further plan depends on how she is doing. MD BARRINGTON Quintana/talon , 04:16 PM , 04:29 PM
[2018-03-03] MEDS: PEG 3350/E-Lyte Soln 4000 ML Bottle PO SCH (19:31)
[2018-03-04] MEDS: PEG 3350/E-Lyte Soln 4000 ML Bottle PO SCH (00:40)
[2018-03-04] MEDS: Ciprofloxacin 400 MG/200 ML 400 MG/200 ML PIGGYBACK IV.SIG SCH ×3 (03:12→20:20)
[2018-03-04 05:08] LABS: Baso % (Auto) 0.8 % (0.0-2.0); Eos % (Auto) 0.7 % (0.0-4.0); Hematocrit 23.3 % (35.0-46.0); Hemoglobin 7.8 gm/dL (11.6-15.3); Lymph # (Auto) 0.6 th/mm3 (1.0-4.8); Lymph % (Auto) 17.8 % (9.0-44.0); Mean Corpuscular HGB Conc 33.3 % (32.0-36.0); Mean Corpuscular Hemoglobin 36.9 pg (27.0-34.0); Mean Corpuscular Volume 110.7 fL (80.0-100.0); Mean Platelet Volume 9.2 fL (7.0-11.0); Mono # (Auto) 0.3 th/mm3 (0.0-0.9); Mono % (Auto) 10.1 % (0.0-8.0); Neut # (Auto) 2.4 th/mm3 (1.8-7.7); Neut % (Auto) 70.6 % (16.0-70.0); Platelet Count 66 th/mm3 (150-450); Red Cell Distribution Width 13.3 % (11.6-17.2); White Blood Count 3.3 th/mm3 (4.0-11.0)
[2018-03-04 05:14] LABS: Chloride 113 meq/L (98-107); Potassium 3.4 meq/L (3.5-5.1); Sodium 144 meq/L (136-145)
[2018-03-04 05:19] LABS: Calcium 6.3 mg/dL (8.5-10.1)
[2018-03-04 05:20] LABS: Albumin 1.8 g/dL (3.4-5.0); Anion Gap 11 meq/L (5-15); Blood Urea Nitrogen 1 mg/dL (7-18); Carbon Dioxide 20.4 meq/L (21.0-32.0); Glucose,Random 131 mg/dL (74-106); Magnesium 1.3 mg/dL (1.5-2.5)
[2018-03-04 05:24] LABS: Platelet Morphology Normal (Normal)
[2018-03-04 05:27] LABS: Alanine Aminotransferase 82 U/L (10-53); Alkaline Phosphatase 128 U/L (45-117); Aspartate Aminotransferase 179 U/L (15-37); Glomerular Filtration Rate Greater Than 89 mL/min (>89); Total Protein 4.6 g/dL (6.4-8.2)
[2018-03-04] MEDS: Insulin NovoLOG Aspart Correctional Sugar Inj SQ SCH ×3 (08:22→17:57)
[2018-03-04] MEDS: Lactobacillus Acidophilus/L. Spores Tablet PO SCH ×3 (08:59→18:02)
[2018-03-04] MEDS: Magnesium Sulfate Inj 2 GM in Sodium Chlor 0.9% Inj 96 ML IV.SIG PRN (09:00)
--- NOTE | 2018-03-04 11:37 | P.PN ---
Subjective Interval history: Follow up acute colitis and GI bleed. Patient seen and examined, lying in bed comfortably in nad. Finished prep for colonoscopy overnight. Spoke with GI who believes patient to be too hemodynamically unstable to undergo colonoscopy. Will reschedule for tomorrow. Awaiting oncology consult today. Physical Exam Vital signs: Vital Signs 03/03/18 12:00 03/03/18 12:12 03/03/18 13:00 Temperature 98 F Pulse Rate 76 78 Respiratory Rate 17 19 25 H Blood Pressure 96/44 L 94/57 L Pulse Oximetry 95 03/03/18 14:11 03/03/18 16:00 03/03/18 16:18 Temperature 98.8 F Pulse Rate 100 H 84 Respiratory Rate 34 H 26 H Blood Pressure 85/57 L 93/48 L Pulse Oximetry 03/03/18 18:00 03/03/18 19:00 03/03/18 20:00 Temperature 99.4 F Pulse Rate 82 98 H Respiratory Rate 24 20 Blood Pressure 90/52 L 87/55 L 102/53 L Pulse Oximetry 93 L 03/03/18 21:00 03/03/18 22:00 03/03/18 22:25 Temperature Pulse Rate 76 78 96 H Respiratory Rate 24 18 20 Blood Pressure 82/61 L 83/47 L 83/47 L Pulse Oximetry 97 03/03/18 22:26 03/03/18 22:30 03/03/18 22:33 Temperature Pulse Rate 90 80 84 Respiratory Rate 25 H 18 21 Blood Pressure 76/49 L 76/49 L Pulse Oximetry 97 03/03/18 23:00 03/04/18 00:00 03/04/18 01:00 Temperature 99.2 F Pulse Rate 78 84 100 H Respiratory Rate 9 L 24 24 Blood Pressure 77/50 L 86/49 L 102/56 L Pulse Oximetry 95 03/04/18 02:00 03/04/18 03:10 03/04/18 04:06 Temperature 99 F Pulse Rate 110 H 80 80 Respiratory Rate 32 H 24 28 H Blood Pressure 92/49 L 90/50 L 92/51 L Pulse Oximetry 03/04/18 05:00 03/04/18 06:00 03/04/18 07:06 Temperature Pulse Rate 84 82 98 H Respiratory Rate 26 H 25 H 22 Blood Pressure 92/57 L 94/55 L 86/44 L Pulse Oximetry 03/04/18 08:00 03/04/18 08:05 03/04/18 10:00 Temperature 98.8 F Pulse Rate 82 76 Respiratory Rate 29 H 28 H Blood Pressure 84/48 L 80/53 L Pulse Oximetry Intake & Output 03/03/18 03/04/18 03/04/18 18:59 06:59 18:59 Intake Total 3230 / 3230 5310 / 5310 2510 / 2510 Output Total 1301 / 1301 4000 / 4000 Balance 1928 / 192 1310 / 1310 2510 / 2510 Intake: IV 2510 / 2510 1310 / 1310 2510 / 2510 KCl Inj 20 MEQ In LR 1000 mL 1010 / 1010 1010 / 1010 1010 / 1010 Inj 1,000 ML @ 100 mls/hr IV. CONT .Q10H6M BRENDA Rx#:[id number] Cipro 400 MG/200 ML Inj 400 mg 200 / 200 200 / 200 200 / 200 In 200 ml @ 200 mls/hr IV.SIG Q8H BRENDA Rx#:[id number] Magnesium Sulfate 1 gm/D5W 100 100 / 100 ml Premix 100 ML @ 100 mls/hr IV.SIG Q1H BRENDA Rx#:[id number] Magnesium Sulfate Inj 2 GM In 200 / 200 NS Inj 96 ML @ 50 mls/hr IV.SIG UNSCH PRN Rx#:[id number] KCl 10 mEq Premix Inj 10 meq In 100 / 100 100 ml @ 100 mls/hr IV.SIG Q1H BRENDA Rx#:[id number] NS Inj 1,000 ML @ Wide Open IV. 1000 / 1000 1000 / 1000 SIG BOLUS BRENDA Rx#:[id number] Flagyl 500 MG Inj 100 ML @ 100 100 / 100 100 / 100 100 / 100 mls/hr IV.SIG Q8H BRENDA Rx#: [id number] Oral 720 / 720 4000 / 4000 Output: Urine 1100 / 1100 Stool 201 / 201 4000 / 4000 Other: # Voids 6 Date of Last Bowel Movement 03/03/18 03/03/18 03/04/18 Narrative: GENERAL: Well-developed, well-nourished patient in NAD. Appears to be much older than stated age. SKIN: Warm and dry. No rash. HEAD: Normocephalic. Atraumatic. EYES: Pupils equal and round. No scleral icterus. No injection or drainage. ENT: No nasal bleeding or discharge. Mucous membranes pink and moist. NECK: Supple. Trachea midline. CARDIOVASCULAR: Regular rate and rhythm. S1, S2 noted. No murmur appreciated. RESPIRATORY: No accessory muscle use. Clear to auscultation. Breath sounds equal bilaterally. GASTROINTESTINAL: Abdomen soft, nondistended. Normoactive bowel sounds x4. Pain to palpation in midepigastric area. MUSCULOSKELETAL: No obvious deformities. Extremities without clubbing, cyanosis , or edema. NEUROLOGICAL: Awake and alert. No obvious cranial nerve deficits. Motor grossly within normal limits. 5/5 muscle strength in bilateral upper and lower extremities. Normal speech. PSYCHIATRIC: Appropriate mood and affect; insight and judgment normal. Results - Labs CBC & Chem 7: 03/04/18 04:50 03/04/18 04:50 Laboratory Results - last 24 hr 03/03/18 03/03/18 03/03/18 09:55 09:55 09:55 CBC w Diff WBC RBC Hgb Hct MCV MCH MCHC RDW Plt Count MPV Neut % (Auto) Lymph % (Auto) [place] % (Auto) Eos % (Auto) Baso % (Auto) Neut # (Auto) Lymph # (Auto) [place] # (Auto) Eos # (Auto) Baso # (Auto) WBC Differential Diff Scan Differential Comment Platelet Estimate Platelet Morphology Retic Count Absolute Retic Haptoglobin 126 Sodium Potassium Chloride Carbon Dioxide Anion Gap BUN Creatinine Estimated GFR POC Glucose Random Glucose Calcium Prot Corrected Calcium Phosphorus Magnesium Iron 37 L TIBC 144 L % Saturation 25.7 Ferritin 366 H Total Bilirubin AST ALT Alkaline Phosphatase Lactate Dehydrogenase 284 H Total Protein Albumin Triglycerides 520 H Cholesterol 100 L LDL Cholesterol, Calc HDL Cholesterol 6.5 L Cholesterol/HDL Ratio 15.38 Hepatitis A IgM Ab Nonreactive Hep Bs Antigen Nonreactive Hep B Core IgM Ab Nonreactive Hep C IgG Ab Nonreactive Blood Type Antibody Screen 03/03/18 03/03/18 03/03/18 09:55 12:11 16:06 CBC w Diff WBC RBC Hgb Hct MCV MCH MCHC RDW Plt Count MPV Neut % (Auto) Lymph % (Auto) [place] % (Auto) Eos % (Auto) Baso % (Auto) Neut # (Auto) Lymph # (Auto) [place] # (Auto) Eos # (Auto) Baso # (Auto) WBC Differential Diff Scan Differential Comment Platelet Estimate Platelet Morphology Retic Count 2.6 Absolute Retic 58.0 Haptoglobin Sodium Potassium Chloride Carbon Dioxide Anion Gap BUN Creatinine Estimated GFR POC Glucose 112 H 82 Random Glucose Calcium Prot Corrected Calcium Phosphorus Magnesium Iron TIBC % Saturation Ferritin Total Bilirubin AST ALT Alkaline Phosphatase Lactate Dehydrogenase Total Protein Albumin Triglycerides Cholesterol LDL Cholesterol, Calc HDL Cholesterol Cholesterol/HDL Ratio Hepatitis A IgM Ab Hep Bs Antigen Hep B Core IgM Ab Hep C IgG Ab Blood Type Antibody Screen 03/03/18 03/04/18 03/04/18 20:39 04:50 04:50 CBC w Diff Slide review pending WBC 3.3 L RBC 2.10 L Hgb 7.8 L Hct 23.3 L MCV 110.7 H MCH 36.9 H MCHC 33.3 RDW 13.3 Plt Count 66 L MPV 9.2 Neut % (Auto) 70.6 H Lymph % (Auto) 17.8 [place] % (Auto) 10.1 H Eos % (Auto) 0.7 Baso % (Auto) 0.8 Neut # (Auto) 2.4 Lymph # (Auto) 0.6 L [place] # (Auto) 0.3 Eos # (Auto) 0.0 Baso # (Auto) 0.0 WBC Differential . Diff Scan Auto diff confirmed Differential Comment . Platelet Estimate Low L Platelet Morphology Normal Retic Count Absolute Retic Haptoglobin Sodium 144 Potassium 3.4 L Chloride 113 H Carbon Dioxide 20.4 L Anion Gap 11 BUN 1 L Creatinine 0.58 Estimated GFR Greater than 89 POC Glucose 161 H Random Glucose 131 H Calcium 6.3 L* Prot Corrected Calcium 7.5 L Phosphorus 1.0 L Magnesium 1.3 L Iron TIBC % Saturation Ferritin Total Bilirubin 1.2 H AST 179 H ALT 82 H Alkaline Phosphatase 128 H Lactate Dehydrogenase Total Protein 4.6 L Albumin 1.8 L Triglycerides Cholesterol LDL Cholesterol, Calc HDL Cholesterol Cholesterol/HDL Ratio Hepatitis A IgM Ab Hep Bs Antigen Hep B Core IgM Ab Hep C IgG Ab Blood Type Antibody Screen 03/04/18 03/04/18 08:20 08:33 CBC w Diff WBC RBC Hgb Hct MCV MCH MCHC RDW Plt Count MPV Neut % (Auto) Lymph % (Auto) [place] % (Auto) Eos % (Auto) Baso % (Auto) Neut # (Auto) Lymph # (Auto) [place] # (Auto) Eos # (Auto) Baso # (Auto) WBC Differential Diff Scan Differential Comment Platelet Estimate Platelet Morphology Retic Count Absolute Retic Haptoglobin Sodium Potassium Chloride Carbon Dioxide Anion Gap BUN Creatinine Estimated GFR POC Glucose 132 H Random Glucose Calcium Prot Corrected Calcium Phosphorus Magnesium Iron TIBC % Saturation Ferritin Total Bilirubin AST ALT Alkaline Phosphatase Lactate Dehydrogenase Total Protein Albumin Triglycerides Cholesterol LDL Cholesterol, Calc HDL Cholesterol Cholesterol/HDL Ratio Hepatitis A IgM Ab Hep Bs Antigen Hep B Core IgM Ab Hep C IgG Ab Blood Type A Positive Antibody Screen Negative Microbiology 03/02/18 16:55 Stool Enteric Pathogens (PCR) - Final No enteric pathogens detected by PCR (No Salmonella sp., Shigella sp., Campylobacter sp., Yersinia enterocolitica, Vibrio sp., Norovirus, or EHEC (Shiga Toxin 1 or Shiga Toxin 2) detected. 03/02/18 11:35 Clean Catch Urine Urine Culture - Final 50-100,000 cfu/mL mixed tierney (probable contaminants ) 03/02/18 16:55 Stool Stool for WBCs - Final No WBC's seen Assessment and Plan - Assessment (1) Colitis Code(s): K52.9 - Noninfective gastroenteritis and colitis, unspecified Status : Acute (2) Acute UTI Code(s): N39.0 - Urinary tract infection, site not specified Status: Acute - Plan This is a 58-year-old patient with Acute colitis Chronic diarrhea 4 months. Improving. Chronic nausea and vomiting. Improved. Transaminitis, improving. -Abdomen/pelvis CT showing wall thickening of the proximal half of the transverse colon with a questionable submucosal edema and mild adjacent inflammation could represent a colitis. There is trace free fluid in the pelvis. There is stable splenomegaly. Nonacute findings include hepatomegaly with steatosis and severe atherosclerotic disease. -Stool cultures ordered and pending. C diff negative. -Started on Flagyl and Cipro IV in ED. Will continue. -Ensure hydration. Continue IV fluids. -Patient follows with Dr. Thomas, actually has a colonoscopy scheduled for next week. -Consulted GI for further recommendations. Appreciate input and recommendations. A colonoscopy was scheduled although patient is still with hypotension, this has been cancelled and rescheduled for tomorrow. -Control nausea, Phenergan available as needed. Control pain, IV morphine available per pain scale. -Hepatitis panel negative. -Supportive care. GI bleed suspect secondary to acute blood loss vs diluational cause Anemia -Awaiting for hemodynamic stability for colonoscopy. On hold until BP improved. -Will transfuse 1 prbc today, H&H dropped to 7.8. Continue to monitor trends. -Also add IV Venofer x 3 days. Will continue to monitor. -GI following. History of lymphoma Pancytopenia -In remission for 1.5 years, Follows with Dr. Downey. Status post chemotherapy. -Consult placed to Dr. Downey, input and recommendations pending. -Monitor labs. Abnormal UA, ruled out UTI -UA showing presence of bacteria and white blood cells. Await urine culture growth. Pending. -Given IV Rocephin in ED. Patient is getting ciprofloxacin for acute colitis. Electrolyte imbalance including Hypokalemia Hypomagnesia Hypocalcemia Suspect secondary to nausea and vomiting, diarrhea -Replete as ordered. Continue to monitor. Alcohol abuse: Patient admits to drinking on average to glasses of vodka a day. Patient does state she has more than this at times depending on the day. Encourage alcohol cessation. DVT Prophylaxis: SCDs. Discharge Planning: Awaiting clinical improvement and GI consult.
--- NOTE | 2018-03-04 11:49 | ECG ---
Date Performed: 03/04/2018 Time Performed: 08:18:52 PTAGE: 58 years EKG: Sinus rhythm BORDERLINE LEFT AXIS DEVIATION LOW QRS VOLTAGE POSSIBLE RIGHT VENTRICULAR CONDUCTION DELAY ABNORMAL ECG PREVIOUS TRACING : 03/28/2016 07.53 Since the previous tracing, no significant change noted DOCTOR: Chhaya Kruse Interpretating Date/Time 03/04/2018 11:49:15
[2018-03-04] MEDS ORDERED: Sodium Phosphate Inj 30 MMOL in Sodium Chlor 0.9% Inj 250 ML IV.SIG ONE (12:00)
[2018-03-04] MEDS ORDERED: Sodium Chlor 0.9% Inj 250 ML IV.SIG SCH (12:00)
[2018-03-04] MEDS: Iron Sucrose Inj 200 MG in Sodium Chlor 0.9% Inj 100 ML IV.SIG SCH (15:39)
[2018-03-04 19:32] LABS: Hematocrit 29.1 % (35.0-46.0); Hemoglobin 10.1 gm/dL (11.6-15.3)
--- NOTE | 2018-03-04 19:39 | P.PNGI ---
Subjective Interval history: Late entry.Patient seen earlier today.Scheduled for egd/colonoscopy, due to low bp-procedure was cancelled and rescheduled for tomorrow am .Still diarrhea.No nausea, vomiting , melena, hematemesis, hematochezia . Hematology consult pending Physical Exam Vital signs: Vital Signs 03/03/18 20:00 03/03/18 21:00 03/03/18 22:00 Temperature 99.4 F Pulse Rate 98 H 76 78 Respiratory Rate 20 24 18 Blood Pressure 102/53 L 82/61 L 83/47 L Pulse Oximetry 93 L 97 03/03/18 22:25 03/03/18 22:26 03/03/18 22:30 Temperature Pulse Rate 96 H 90 80 Respiratory Rate 20 25 H 18 Blood Pressure 83/47 L 76/49 L Pulse Oximetry 97 03/03/18 22:33 03/03/18 23:00 03/04/18 00:00 Temperature 99.2 F Pulse Rate 84 78 84 Respiratory Rate 21 9 L 24 Blood Pressure 76/49 L 77/50 L 86/49 L Pulse Oximetry 95 03/04/18 01:00 03/04/18 02:00 03/04/18 03:10 Temperature Pulse Rate 100 H 110 H 80 Respiratory Rate 24 32 H 24 Blood Pressure 102/56 L 92/49 L 90/50 L Pulse Oximetry 03/04/18 04:06 03/04/18 05:00 03/04/18 06:00 Temperature 99 F Pulse Rate 80 84 82 Respiratory Rate 28 H 26 H 25 H Blood Pressure 92/51 L 92/57 L 94/55 L Pulse Oximetry 03/04/18 07:06 03/04/18 08:00 03/04/18 08:05 Temperature 98.8 F Pulse Rate 98 H 82 Respiratory Rate 22 29 H Blood Pressure 86/44 L 84/48 L Pulse Oximetry 03/04/18 10:00 03/04/18 11:48 03/04/18 12:00 Temperature 98.5 F Pulse Rate 76 80 80 Respiratory Rate 28 H 22 20 Blood Pressure 80/53 L 79/53 L 78/54 L Pulse Oximetry 03/04/18 13:00 03/04/18 14:00 03/04/18 15:18 Temperature Pulse Rate 76 74 80 Respiratory Rate 28 H 14 33 H Blood Pressure 84/47 L 77/51 L 70/49 L Pulse Oximetry 03/04/18 15:21 03/04/18 15:45 03/04/18 15:47 Temperature 98.7 F 98.3 F Pulse Rate 78 80 84 Respiratory Rate 18 20 28 H Blood Pressure 70/49 L 90/51 L 90/51 L Pulse Oximetry 91 L 95 92 L 03/04/18 16:00 03/04/18 16:15 03/04/18 17:03 Temperature 99.2 F 99.2 F Pulse Rate 81 80 78 Respiratory Rate 17 22 25 H Blood Pressure 94/58 L 94/58 L 109/55 L Pulse Oximetry 93 L 03/04/18 18:00 Temperature Pulse Rate 80 Respiratory Rate 26 H Blood Pressure 104/63 Pulse Oximetry Intake & Output 03/04/18 03/04/18 03/05/18 06:59 18:59 06:59 Intake Total 5310 / 5310 3840 / 3840 Output Total 4000 / 4000 800 / 800 Balance 1310 / 1310 3040 / 3040 Intake: IV 1310 / 1310 2960 / 2960 KCl Inj 20 MEQ In LR 1000 mL 1010 / 1010 1010 / 1010 Inj 1,000 ML @ 100 mls/hr IV. CONT .Q10H6M BRENDA Rx#:[id number] Cipro 400 MG/200 ML Inj 400 mg 200 / 200 400 / 400 In 200 ml @ 200 mls/hr IV.SIG Q8H BRENDA Rx#:[id number] Venofer Inj 200 MG In NS Inj 110 / 110 100 ML @ 110 mls/hr IV.SIG DAILY BRENDA Rx#:[id number] Magnesium Sulfate Inj 2 GM In 200 / 200 NS Inj 96 ML @ 50 mls/hr IV.SIG UNSCH PRN Rx#:[id number] NS Inj 1,000 ML @ Wide Open IV. 1000 / 1000 SIG BOLUS BRENDA Rx#:[id number] NS Inj 250 ML @ 15 mls/hr IV. 40 / 40 SIG ONCE BRENDA Rx#:[id number] Flagyl 500 MG Inj 100 ML @ 100 100 / 100 200 / 200 mls/hr IV.SIG Q8H BRENDA Rx#: [id number] Oral 4000 / 4000 480 / 480 Intake (Blood Product) Amt 400 / 400 Rbc As-3 Leukoreduced Unit 400 / 400 [id number] Output: Urine 400 / 400 Stool 4000 / 4000 400 / 400 Other: # Voids 6 6 Date of Last Bowel Movement 03/03/18 03/04/18 - Constitutional no acute distress - Routine HEENT Exam Head: Present: normocephalic Eye: Present: EOMI, PERRL ENT: Present: mucous membranes moist - Routine Neck Exam Present: supple - Routine Cardiovascular Exam Present: S1, S2 - Routine Abdominal Exam Present: soft - Routine Extremities Exam Present: pulses intact, normal capillary refill - Routine Skin Exam Present: intact - Routine Neurological Exam Present: alert, oriented X3 - Detailed Neurological Exam: Coma Scale Eye Opening: Spontaneous - Routine Psychiatric Exam Present: normal affect Results - Labs CBC & Chem 7: 03/05/18 04:15 03/05/18 04:15 Laboratory Results - last 24 hr 03/03/18 03/04/18 03/04/18 20:39 04:50 04:50 CBC w Diff Slide review pending WBC 3.3 L RBC 2.10 L Hgb 7.8 L Hct 23.3 L MCV 110.7 H MCH 36.9 H MCHC 33.3 RDW 13.3 Plt Count 66 L MPV 9.2 Neut % (Auto) 70.6 H Lymph % (Auto) 17.8 [place] % (Auto) 10.1 H Eos % (Auto) 0.7 Baso % (Auto) 0.8 Neut # (Auto) 2.4 Lymph # (Auto) 0.6 L [place] # (Auto) 0.3 Eos # (Auto) 0.0 Baso # (Auto) 0.0 WBC Differential . Diff Scan Auto diff confirmed Differential Comment . Platelet Estimate Low L Platelet Morphology Normal Sodium 144 Potassium 3.4 L Chloride 113 H Carbon Dioxide 20.4 L Anion Gap 11 BUN 1 L Creatinine 0.58 Estimated GFR Greater than 89 POC Glucose 161 H Random Glucose 131 H Calcium 6.3 L* Prot Corrected Calcium 7.5 L Phosphorus 1.0 L Magnesium 1.3 L Total Bilirubin 1.2 H AST 179 H ALT 82 H Alkaline Phosphatase 128 H Total Protein 4.6 L Albumin 1.8 L TSH Cortisol Blood Type Antibody Screen MTS Gel Crossmatch 03/04/18 03/04/18 03/04/18 04:50 08:20 08:33 CBC w Diff WBC RBC Hgb Hct MCV MCH MCHC RDW Plt Count MPV Neut % (Auto) Lymph % (Auto) [place] % (Auto) Eos % (Auto) Baso % (Auto) Neut # (Auto) Lymph # (Auto) [place] # (Auto) Eos # (Auto) Baso # (Auto) WBC Differential Diff Scan Differential Comment Platelet Estimate Platelet Morphology Sodium Potassium Chloride Carbon Dioxide Anion Gap BUN Creatinine Estimated GFR POC Glucose 132 H Random Glucose Calcium Prot Corrected Calcium Phosphorus Magnesium Total Bilirubin AST ALT Alkaline Phosphatase Total Protein Albumin TSH 6.890 H Cortisol Blood Type A Positive Antibody Screen Negative MTS Gel Crossmatch 03/04/18 03/04/18 03/04/18 11:51 11:52 15:00 CBC w Diff WBC RBC Hgb Hct MCV MCH MCHC RDW Plt Count MPV Neut % (Auto) Lymph % (Auto) [place] % (Auto) Eos % (Auto) Baso % (Auto) Neut # (Auto) Lymph # (Auto) [place] # (Auto) Eos # (Auto) Baso # (Auto) WBC Differential Diff Scan Differential Comment Platelet Estimate Platelet Morphology Sodium Potassium Chloride Carbon Dioxide Anion Gap BUN Creatinine Estimated GFR POC Glucose 123 H Random Glucose Calcium Prot Corrected Calcium Phosphorus Magnesium Total Bilirubin AST ALT Alkaline Phosphatase Total Protein Albumin TSH Cortisol 8.9 Blood Type Antibody Screen MTS Gel Crossmatch See Detail 03/04/18 03/04/18 16:16 19:12 CBC w Diff WBC RBC Hgb Hct MCV MCH MCHC RDW Plt Count MPV Neut % (Auto) Lymph % (Auto) [place] % (Auto) Eos % (Auto) Baso % (Auto) Neut # (Auto) Lymph # (Auto) [place] # (Auto) Eos # (Auto) Baso # (Auto) WBC Differential Diff Scan Differential Comment Platelet Estimate Platelet Morphology Sodium Potassium Chloride Carbon Dioxide Anion Gap BUN Creatinine Estimated GFR POC Glucose 100 117 H Random Glucose Calcium Prot Corrected Calcium Phosphorus Magnesium Total Bilirubin AST ALT Alkaline Phosphatase Total Protein Albumin TSH Cortisol Blood Type Antibody Screen MTS Gel Crossmatch Microbiology 03/02/18 16:55 Stool Giardia Antigen (SARAHI) - Final Negative - No Giardia Antigen detected In selected cases of patients with a history of immunosuppression or foreign travel, a full ova and parasites examination may be desired. Contact the microbiology lab if full workup is indicated and subit another specimen for testing. Assessment and Plan - Attending Attestation Pancytopenia -awaiting hematology evaluation Diarrhea, weight loss, hematochezia -needs further evaluation with colonoscopy/ endoscopy -need to r/o malignancy, IBD Hypotension-possible dehydration, Elevated lfts possible fatty liver Recommendations Cortisol, tsh level fu stool studies celiac panel egd/colon in am if bp improved clear liquid npo after midnight liver work-up
[2018-03-04] MEDS ORDERED: POTASSIUM CHLORIDE IV.SIG ONE (20:00)
[2018-03-04] MEDS ORDERED: MAGNESIUM SULFATE IV.SIG ONE (20:00)
[2018-03-04] MEDS ORDERED: [UNRECOGNIZED DRUG - OTHER] IV.SIG ONE (20:00)
--- NOTE | 2018-03-04 21:22 | MB ---
cc: Antonia Downey MD,Kimber MORALES DATE: 03/04/2018 REFERRING PHYSICIAN: Kimber Stahl DO CHIEF COMPLAINT: Dr. Stahl requested a consultation for Ms. Henriquez regarding pancytopenia with a history of lymphoma, admitted for colitis. HISTORY OF PRESENT ILLNESS: Ms. Henriquez is a 58-year-old woman, well known patient, stage III non-Hodgkin lymphoma, large cell type. She received R-CHOP chemotherapy x6 cycles. She went into remission. Her last chemotherapy was administered on 07/18/2016. Her last staging scan was from 10/30/2017, which was negative for evidence of recurrence. Her last clinic visit was on 11/06/2017. She has a long history of proton pump inhibitor use. She has chronic hypomagnesemia and hypokalemia associated with it. In retrospect, she reports worsening diarrhea since November 2017. She was having diarrhea 3-4 times a week. It was associated with blood. She thought the bloody diarrhea was related to her hemorrhoids. She was under the care of Dr. Tinsley. She was pending endoscopic evaluation. She had worsening nausea. She was becoming dehydrated. She lost 18 pounds. She denies any fevers, chills or night sweats. Prior to her admission, she was having bowel movements 8-10 times per day. Her diarrhea was waking her up at night. On admission, her white blood cell count was 5.1, hemoglobin 11.3, platelet count 102,000. During the course of her hospitalization, her white count trended down to 3.3 with mild lymphopenia. Hemoglobin decreased to 7.8. MCV was 110.7 and platelet count of 66,000. She received a dose of Venofer and is in the midst of a red cell transfusion at the time of the consultation. Her blood pressure was stable. Her heart rate was in the 80s. Her endoscopic procedure was delayed or deferred because of hypotension. She is noted to have elevation in AST, ALT, bilirubin and alkaline phosphatase. Her LDH was elevated at 284. CT scan of the abdomen and pelvis showed wall thickening of the proximal half of the transverse colon with questionable submucosal edema and mild adjacent inflammation representing colitis. There is trace free fluid in the pelvis. There is no lymphadenopathy. She has stable hepatosplenomegaly. She has severe atherosclerotic disease. Because of the suspected colitis, gastroenterology was consulted. She is pending a colonoscopic evaluation to determine the nature of the colitis. PAST MEDICAL HISTORY: 1. Non-Hodgkin lymphoma, bone marrow negative. 2. History of pulmonary nodule, stable. 3. Hypomagnesemia and hypokalemia. 4. Type 2 diabetes. PAST SURGICAL HISTORY: 1. Colon resection in 2010. 2. Colonoscopy. 3. Hysterectomy. 4. Appendectomy. 5. Right knee surgery. 6. Tubal ligation. ALLERGIES: NO KNOWN DRUG ALLERGIES. FAMILY HISTORY: Both parents are . No significant family history of cancer. SOCIAL HISTORY: She is . 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 She has a 25-ozow-arzn smoking history. She used to drink. She denies any illicit drug use. CURRENT MEDICATIONS: 1. Acetaminophen. 2. Calcium chloride. 3. Cipro. 4. Glucagon. 5. Venofer. 6. Lactobacillus. 7. Magnesium. 8. Metronidazole. 9. Morphine p.r.n. 10. Colyte. 11. Potassium chloride. 12. Phenergan. 13. Tigan. PHYSICAL EXAMINATION: VITAL SIGNS: Temperature 99.2, heart rate 81, respiratory rate 17, blood pressure 94/58, saturation 92%. GENERAL: Ms. Henriquez is a well-developed, well-nourished, anxious-appearing woman. HEENT: Her pupils are round and reactive to light and accommodation. Conjunctivae are pale. Oropharynx is clear. NECK: Supple. LUNGS: Clear anteriorly. CARDIOVASCULAR: Reveals a normal rate and rhythm. ABDOMEN: Benign, nontender. She is nauseous with deep palpation of the abdomen. EXTREMITIES: No edema. Good pulses. NEUROLOGIC: Nonfocal. LABORATORY DATA: As described above. ASSESSMENT AND PLAN: Ms. Henriquez is a 58-year-old woman with a history of large cell lymphoma, non-Hodgkin lymphoma, who went into remission after 6 cycles of R-CHOP chemotherapy. Her last chemotherapy was in 07/2016. Her course was complicated by hypomagnesemia, chronic thrombocytopenia and mild AST elevation. She has had worsening diarrheal symptoms over the last 6 months, culminating to the point that her diarrhea wakes her up at night and she is having 8-10 diarrhea episodes per day. She has lost weight. She has clinical signs of colitis. We discussed GI evaluation and pending colonoscopy to determine the nature of her colitis. It appears to be colitis from the imaging study. We will need a biopsy to identify the type of colitis and to rule out recurrent lymphoma localized to the proximal transverse colon. She has a history of chronic thrombocytopenia. It appears to have acutely worsened. She may be bleeding as her hemoglobin is decreased, as well as white count. Supportive transfusion will continue. I recommend deferring additional iron at this point. It is not clear that her condition is related to iron deficiency. We will monitor her response to the iron and blood transfusions. Further recommendations regarding treatment of the colitis by gastroenterology pending. We will follow the biopsy result to make sure it is not a recurrent lymphoma. Her magnesium and potassium will be replaced. Her questions were answered to her satisfaction. MD OPAL Gro[place]/talon , 05:49 PM , 06:01 PM
[2018-03-05] MEDS: Insulin NovoLOG Aspart Correctional Sugar Inj SQ SCH ×6 (00:53→22:08)
[2018-03-05] MEDS: Ciprofloxacin 400 MG/200 ML 400 MG/200 ML PIGGYBACK IV.SIG SCH ×3 (03:39→20:23)
[2018-03-05 04:54] LABS: Baso # (Auto) 0.1 th/mm3 (0.0-0.2); Baso % (Auto) 1.7 % (0.0-2.0); Eos % (Auto) 0.7 % (0.0-4.0); Hematocrit 28.5 % (35.0-46.0); Hemoglobin 10.2 gm/dL (11.6-15.3); Lymph # (Auto) 0.5 th/mm3 (1.0-4.8); Lymph % (Auto) 10.4 % (9.0-44.0); Mean Corpuscular HGB Conc 35.6 % (32.0-36.0); Mean Corpuscular Hemoglobin 37.7 pg (27.0-34.0); Mean Corpuscular Volume 105.7 fL (80.0-100.0); Mean Platelet Volume 9.6 fL (7.0-11.0); Mono # (Auto) 0.4 th/mm3 (0.0-0.9); Mono % (Auto) 9.7 % (0.0-8.0); Neut # (Auto) 3.6 th/mm3 (1.8-7.7); Neut % (Auto) 77.5 % (16.0-70.0); Platelet Count 71 th/mm3 (150-450); Red Cell Distribution Width 15.5 % (11.6-17.2); White Blood Count 4.6 th/mm3 (4.0-11.0)
[2018-03-05 05:14] LABS: Chloride 112 meq/L (98-107); Sodium 141 meq/L (136-145)
[2018-03-05 05:27] LABS: Alanine Aminotransferase 79 U/L (10-53); Albumin 1.9 g/dL (3.4-5.0); Alkaline Phosphatase 141 U/L (45-117); Anion Gap 11 meq/L (5-15); Aspartate Aminotransferase 154 U/L (15-37); Blood Urea Nitrogen 2 mg/dL (7-18); Calcium 6.5 mg/dL (8.5-10.1); Carbon Dioxide 18.4 meq/L (21.0-32.0); Glomerular Filtration Rate Greater Than 89 mL/min (>89); Glucose,Random 127 mg/dL (74-106); Magnesium 1.8 mg/dL (1.5-2.5); Total Protein 5.2 g/dL (6.4-8.2)
[2018-03-05] MEDS ORDERED: Lidocaine PF 1% Inj 5 ML Syringe INFILTRATN ONE (07:00)
[2018-03-05] MEDS ORDERED: Phenylephrine/NS 1000 MCG/10ML Syringe IV.PUSH ONE (07:00)
[2018-03-05] MEDS ORDERED: Succinylcholine Inj 100 MG/5 ML Syringe IV.PUSH ONE (07:00)
[2018-03-05] MEDS ORDERED: fentaNYL Citrate Inj 250 MCG/5 ML Ampul ONE (07:07)
[2018-03-05] MEDS: Hydrocortisone/Pramoxine Foam 10 GM Can RECTAL SCH ×2 (09:04→18:18)
[2018-03-05] MEDS: Lactobacillus Acidophilus/L. Spores Tablet PO SCH ×3 (09:04→18:18)
[2018-03-05] MEDS: Iron Sucrose Inj 200 MG in Sodium Chlor 0.9% Inj 100 ML IV.SIG SCH (09:05)
[2018-03-05] MEDS ORDERED: Sod Chloride 0.9% Inj 1,000 ML IV.SIG SCH (09:11)
[2018-03-05 10:11] LABS: Reticulocyte Percent 2.4 % (0.4-3.0)
[2018-03-05 10:23] LABS: Lactate Dehydrogenase 359 U/L (84-246)
[2018-03-05 11:27] LABS: CKMB Percent 0.6 % (0.0-4.0); Creatine Kinase MB 8.7 ng/mL (0.5-3.6)
[2018-03-05 14:39] LABS: Hepatitits B Surface Antigen Nonreactive (Nonreactive)
[2018-03-05] MEDS ORDERED: Gadobutrol PF 10 MMOL/10 ML Vial (for RAD) IV.SIG ONE (15:00)
[2018-03-05 15:06] LABS: Hepatitis A IgM Antibody Nonreactive (Nonreactive)
--- NOTE | 2018-03-05 15:21 | MR ---
EXAM DATE: 03/05/2018 2:51 PM EDT AGE/SEX: 58 years / Female INDICATIONS: Abdominal pain. CLINICAL DATA: This is the patient's subsequent encounter. Patient reports that signs and symptoms h ave been present for 3 days and indicates a pain score of 3/10. MEDICAL/SURGICAL HISTORY: Diabetes mellitus type II. Hypercholesterolemia. Lymphoma. Hysterec letitia. COMPARISON: [facility], CT ABDOMEN & PELVIS W CONTRAST, 03/02/2018. . TECHNIQUE: 20 ml Gadavist (gadobutrol) contrast infused MR angiography (single exam dose) was perfo rmed with digital subtraction. The data was postprocessed with a variety of visualization algorithms including full-volume maximum-intensity projection, multiplanar sliding thin slab reformation, and c urved planar reformation. FINDINGS: Abdominal Aorta: Diffuse atherosclerotic calcifications of the abdominal aorta with mild distal aort ic stenosis. 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 Mesenteric arteries: Celiac is patent. Moderate stenosis of the SMA origin with approximately 50-55% luminal stenosis. YARI is patent. Kidneys: There is symmetric renal size. There is homogeneous enhancement in the parenchyma. Liver: Diffusely decreased signal consistent with fatty infiltration. No intrahepatic ductal dilatati on or focal mass. Retroperitoneum: The adrenal glands are unremarkable. No adenopathy seen. Lung bases: Small bilateral pleural effusions. Post Contrast: No abnormal areas of enhancement seen. CONCLUSION: 1. 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 Celiac artery and YARI are patent. Typ ically, stenosis of a single mesenteric artery should not cause significant mesenteric ischemia. Haley cathleen, in a rare but appropriate clinical setting this may be symptomatic. 2. Diffuse atherosclerotic disease in the abdominal aorta. 3. Small bilateral pleural effusions. 4. Hepatic steatosis. Electronically signed by: Robert Stevens MD 03/05/2018 3:20 PM EDT
--- NOTE | 2018-03-05 18:04 | P.PN ---
Subjective Interval history: 58-year-old female who is seen and examined today for follow-up on colitis and GI bleeding. Patient sitting in a wheelchair getting ready to go down for an abdominal MRI. Patient denies any significant abdominal pain at this time. She did undergo colonoscopy to this morning. Still awaiting results. Vital signs are stable, patient remains afebrile. Physical Exam Vital signs: Vital Signs 03/04/18 18:00 03/04/18 19:00 03/04/18 19:34 Temperature Pulse Rate 80 76 84 Respiratory Rate 26 H 15 20 Blood Pressure 104/63 95/54 L Pulse Oximetry 03/04/18 20:00 03/04/18 21:00 03/04/18 21:22 Temperature 98.0 F Pulse Rate 88 88 106 H Respiratory Rate 32 H 32 H 37 H Blood Pressure 87/54 L Pulse Oximetry 98 03/04/18 21:24 03/04/18 22:24 03/04/18 23:00 Temperature Pulse Rate 86 82 Respiratory Rate 15 25 H Blood Pressure 91/60 L 106/63 Pulse Oximetry 03/04/18 23:02 03/04/18 23:04 03/05/18 00:00 Temperature 98.8 F Pulse Rate 82 86 86 Respiratory Rate 18 20 24 Blood Pressure 76/49 L 86/51 L 82/55 L Pulse Oximetry 99 03/05/18 01:00 03/05/18 02:00 03/05/18 02:14 Temperature Pulse Rate 82 84 86 Respiratory Rate 23 26 H 33 H Blood Pressure 84/58 L 95/56 L Pulse Oximetry 03/05/18 03:00 03/05/18 03:45 03/05/18 04:00 Temperature 98.9 F Pulse Rate 84 94 H 94 H Respiratory Rate 30 H 28 H 26 H Blood Pressure 99/63 L 98/59 L 98/59 L Pulse Oximetry 94 L 03/05/18 05:00 03/05/18 05:05 03/05/18 06:00 Temperature Pulse Rate 90 82 86 Respiratory Rate 17 23 20 Blood Pressure 94/59 L Pulse Oximetry 03/05/18 06:30 03/05/18 08:49 03/05/18 08:51 Temperature 98.8 F 98.7 F Pulse Rate 93 H 82 82 Respiratory Rate 20 26 H 26 H Blood Pressure 109/78 84/48 L 74/42 L Pulse Oximetry 93 L 03/05/18 09:00 03/05/18 09:36 03/05/18 10:00 Temperature Pulse Rate 82 84 78 Respiratory Rate 27 H 27 H 25 H Blood Pressure 79/51 L 83/46 L 83/49 L Pulse Oximetry 03/05/18 11:08 03/05/18 12:26 03/05/18 14:41 Temperature 98.7 F Pulse Rate 84 84 84 Respiratory Rate 20 29 H 28 H Blood Pressure 86/55 L 91/59 L 99/54 L Pulse Oximetry 03/05/18 15:45 03/05/18 16:00 Temperature 98.6 F Pulse Rate 84 78 Respiratory Rate 25 H 19 Blood Pressure 99/57 L 96/50 L Pulse Oximetry Intake & Output 03/04/18 03/05/18 03/05/18 18:59 06:59 18:59 Intake Total 3840 / 3840 1870 / 1870 1384 / 1384 Output Total 800 / 800 Balance 3040 / 3040 1870 / 1870 1384 / 1384 Weight 59.7 kg Intake: IV 2960 / 2960 1870 / 1870 384 / 384 KCl Inj 20 MEQ In LR 1000 mL 1010 / 1010 1010 / 1010 Inj 1,000 ML @ 100 mls/hr IV. CONT .Q10H6M BRENDA Rx#:[id number] Cipro 400 MG/200 ML Inj 400 mg 400 / 400 400 / 400 In 200 ml @ 200 mls/hr IV.SIG Q8H BRENDA Rx#:[id number] Venofer Inj 200 MG In NS Inj 110 / 110 110 / 110 100 ML @ 110 mls/hr IV.SIG DAILY BRENDA Rx#:[id number] Magnesium Sulfate Inj 2 GM In 200 / 200 NS Inj 96 ML @ 50 mls/hr IV.SIG UNSCH PRN Rx#:[id number] KCl Inj 40 MEQ Magnesium 0 / 0 274 / 274 Sulfate Inj 2 GM In NS Inj 250 ML @ 50 mls/hr IV.SIG ONCE ONE Rx#:[id number] NS Inj 1,000 ML @ Wide Open IV. 1000 / 1000 SIG BOLUS BRENDA Rx#:[id number] NS Inj 250 ML @ 15 mls/hr IV. 40 / 40 SIG ONCE BRENDA Rx#:[id number] Sodium Phosphate Inj 30 MMOL In 260 / 260 NS Inj 250 ML @ 40 mls/hr IV. SIG ONCE ONE Rx#:[id number] Flagyl 500 MG Inj 100 ML @ 100 200 / 200 200 / 200 mls/hr IV.SIG Q8H BRENDA Rx#: [id number] Oral 480 / 480 Anesthesia Amount 1000 / 1000 Intake (Blood Product) Amt 400 / 400 Rbc As-3 Leukoreduced Unit 400 / 400 [id number] Output: Urine 400 / 400 Stool 400 / 400 Other: # Voids 6 6 Date of Last Bowel Movement 03/04/18 03/04/18 03/05/18 Narrative: GENERAL: Well-developed, well-nourished, in no acute distress. alert and orientated HEENT: Head is normocephalic without any lesions or masses noted. Facial features are symmetric. Eyes: Extraocular muscles are intact. Conjunctivae were clear. NECK: Supple without any masses. Trachea midline no deviation. No JVD, CARDIAC: Regular rhythm, regular rate. S1/S2 are heard. No murmurs gallops or rubs. LUNGS: Clear to auscultation bilaterally. No wheeze, rhonchi or rales. No use of accessory muscles on inspiration or expiration. ABDOMEN: Soft, nontender. Nondistended. Bowel sounds heard in all 4 quadrants. No organomegaly or masses. Negative rebound, negative guarding EXTREMITIES: No edema, pulses are equal bilaterally. No cyanosis or clubbing NEUROLOGY: Mood and affect appear appropriate. Cranial nerves II through XII grossly intact. Moving all extremities, speech is clear Results - Labs CBC & Chem 7: 03/05/18 04:15 03/05/18 04:15 Laboratory Results - last 24 hr 03/04/18 03/04/18 03/04/18 11:52 15:00 19:12 CBC w Diff WBC RBC Hgb Hct MCV MCH MCHC RDW Plt Count MPV Neut % (Auto) Lymph % (Auto) [place] % (Auto) Eos % (Auto) Baso % (Auto) Neut # (Auto) Lymph # (Auto) [place] # (Auto) Eos # (Auto) Baso # (Auto) WBC Differential Diff Scan Differential Comment Platelet Estimate Platelet Morphology Retic Count Absolute Retic Sodium Potassium Chloride Carbon Dioxide Anion Gap BUN Creatinine Estimated GFR POC Glucose 117 H Random Glucose Calcium Prot Corrected Calcium Magnesium Total Bilirubin Direct Bilirubin AST ALT Alkaline Phosphatase Lactate Dehydrogenase Total Creatine Kinase CK-MB (CK-2) CK-MB (CK-2) % Total Protein Albumin Cortisol 8.9 Hepatitis A IgM Ab Hep Bs Antigen Hep B Core IgM Ab Hep C IgG Ab MTS Gel Crossmatch See Detail 03/04/18 03/05/18 03/05/18 19:25 04:15 04:15 CBC w Diff Slide review pending WBC 4.6 RBC 2.70 L Hgb 10.1 L D 10.2 L Hct 29.1 L 28.5 L MCV 105.7 H D MCH 37.7 H MCHC 35.6 RDW 15.5 Plt Count 71 L MPV 9.6 Neut % (Auto) 77.5 H Lymph % (Auto) 10.4 [place] % (Auto) 9.7 H Eos % (Auto) 0.7 Baso % (Auto) 1.7 Neut # (Auto) 3.6 Lymph # (Auto) 0.5 L [place] # (Auto) 0.4 Eos # (Auto) 0.0 Baso # (Auto) 0.1 WBC Differential . Diff Scan Auto diff confirmed Differential Comment . Platelet Estimate Low L Platelet Morphology Enlarged H Retic Count 2.4 Absolute Retic 65.3 Sodium 141 Potassium 4.0 Chloride 112 H Carbon Dioxide 18.4 L Anion Gap 11 BUN 2 L Creatinine 0.47 L Estimated GFR Greater than 89 POC Glucose Random Glucose 127 H Calcium 6.5 L* Prot Corrected Calcium 7.4 L* Magnesium 1.8 Total Bilirubin 1.9 H Direct Bilirubin AST 154 H ALT 79 H Alkaline Phosphatase 141 H Lactate Dehydrogenase 359 H Total Creatine Kinase CK-MB (CK-2) CK-MB (CK-2) % Total Protein 5.2 L D Albumin 1.9 L Cortisol Hepatitis A IgM Ab Hep Bs Antigen Hep B Core IgM Ab Hep C IgG Ab MTS Gel Crossmatch 03/05/18 03/05/18 03/05/18 08:55 10:20 10:20 CBC w Diff WBC RBC Hgb Hct MCV MCH MCHC RDW Plt Count MPV Neut % (Auto) Lymph % (Auto) [place] % (Auto) Eos % (Auto) Baso % (Auto) Neut # (Auto) Lymph # (Auto) [place] # (Auto) Eos # (Auto) Baso # (Auto) WBC Differential Diff Scan Differential Comment Platelet Estimate Platelet Morphology Retic Count Absolute Retic Sodium Potassium Chloride Carbon Dioxide Anion Gap BUN Creatinine Estimated GFR POC Glucose 143 H Random Glucose Calcium Prot Corrected Calcium Magnesium Total Bilirubin 1.9 H 1.9 H Direct Bilirubin 1.6 H AST ALT Alkaline Phosphatase Lactate Dehydrogenase Total Creatine Kinase 1345 H CK-MB (CK-2) 8.7 H CK-MB (CK-2) % 0.6 Total Protein Albumin Cortisol Hepatitis A IgM Ab Hep Bs Antigen Hep B Core IgM Ab Hep C IgG Ab MTS Gel Crossmatch 03/05/18 03/05/18 03/05/18 10:20 12:08 16:35 CBC w Diff WBC RBC Hgb Hct MCV MCH MCHC RDW Plt Count MPV Neut % (Auto) Lymph % (Auto) [place] % (Auto) Eos % (Auto) Baso % (Auto) Neut # (Auto) Lymph # (Auto) [place] # (Auto) Eos # (Auto) Baso # (Auto) WBC Differential Diff Scan Differential Comment Platelet Estimate Platelet Morphology Retic Count Absolute Retic Sodium Potassium Chloride Carbon Dioxide Anion Gap BUN Creatinine Estimated GFR POC Glucose 122 H 96 Random Glucose Calcium Prot Corrected Calcium Magnesium Total Bilirubin Direct Bilirubin AST ALT Alkaline Phosphatase Lactate Dehydrogenase Total Creatine Kinase CK-MB (CK-2) CK-MB (CK-2) % Total Protein Albumin Cortisol Hepatitis A IgM Ab Nonreactive Hep Bs Antigen Nonreactive Hep B Core IgM Ab Nonreactive Hep C IgG Ab Nonreactive MTS Gel Crossmatch Microbiology 03/02/18 16:55 Stool Giardia Antigen (SARAHI) - Final Negative - No Giardia Antigen detected In selected cases of patients with a history of immunosuppression or foreign travel, a full ova and parasites examination may be desired. Contact the microbiology lab if full workup is indicated and subit another specimen for testing. - Imaging Impressions Abdomen MRI 03/05/18 00:00 CONCLUSION: 1. 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 Celiac artery and YARI are patent. Typically, stenosis of a single mesenteric artery should not cause significant mesenteric ischemia. However, in a rare but appropriate clinical setting this may be symptomatic. 2. Diffuse atherosclerotic disease in the abdominal aorta. 3. Small bilateral pleural effusions. 4. Hepatic steatosis. Assessment and Plan - Assessment (1) Colitis Code(s): K52.9 - Noninfective gastroenteritis and colitis, unspecified Status : Acute (2) Acute UTI Code(s): N39.0 - Urinary tract infection, site not specified Status: Acute - Plan Acute colitis, -Patient with chronic nausea, vomiting, diarrhea for 4 months which has improved during her stay in the hospital -CT scan does show wall thickening of the proximal half of the transverse colon with questionable submucosal edema, inflammation. -Patient empirically started on Cipro and Flagyl -Stool cultures with C. difficile were negative, WBCs were not seen, no enteric pathogen was identified, Giardia was negative, eosinophil stool none were seen -GI consulted and endoscopy was performed today, awaiting results -MRI was done of the abdomen which also indicates moderate 50-55% stenosis of the SMA at the origin. -Cultures and testing were performed from colonoscopy Hyperbilirubinemia with elevated liver enzymes, possible underlying alcohol liver disease -Patient does have history of alcohol abuse drinking at least 2 glasses of vodka daily which could be more depending on the day -Patient was counseled on alcohol cessation -CT does show hepatomegaly with steatosis -Liver enzymes appear to be continued to improve Rhabdomyolysis -Unclear etiology at this time -We will need to continue copious IV hydration, encourage p.o. intake -Monitor CPK anemia with macrocytosis -Multifactorial with pancytopenia, possible GI bleed, delusional -Iron stores appear to be appropriate with ferritin 366, retake count is appropriate, haptoglobin is normal -Obtain B12/folate -Awaiting endoscopy report History of lymphoma complicated with Pancytopenia -Pancytopenia is multifactorial which could be related to previous treatment of lymphoma, chronic alcohol abuse, possible alcohol liver disease -In remission for 1.5 years, Follows with Dr. Downey. Status post chemotherapy. -Consult placed to Dr. Downey, appreciated ui software engineer recommendations -Continue monitor labs Abnormal UA, ruled out UTI -UA showing presence of bacteria and white blood cells. -Urine culture indicating 50-100,000 mixed tierney probable contaminants Electrolyte imbalance including Hypokalemia Hypomagnesia Hypocalcemia Suspect secondary to nausea and vomiting, diarrhea -Replete as ordered. Continue to monitor. DVT Prophylaxis: -Sequential compression devices -Avoid chemical prophylaxis secondary to anemia, thrombocytopenia, possible GI bleed
--- NOTE | 2018-03-05 18:16 | P.PNONC ---
Subjective Interval history: Complaint of nausea this morning. They gave her antiemetic therapy Phenergan. He did not work. It made her somewhat sleepy which she did not mind. Noted was a cortisol level that was decreased. Have some liquid bowel movement. Diarrhea frequency decreased. Objective Vital Signs/Intake & Output: Vital Signs 03/04/18 19:00 03/04/18 19:34 03/04/18 20:00 Temperature 98.0 F Pulse Rate 76 84 88 Respiratory Rate 15 20 32 H Blood Pressure 95/54 L 87/54 L Pulse Oximetry 98 03/04/18 21:00 03/04/18 21:22 03/04/18 21:24 Temperature Pulse Rate 88 106 H Respiratory Rate 32 H 37 H Blood Pressure 91/60 L Pulse Oximetry 03/04/18 22:24 03/04/18 23:00 03/04/18 23:02 Temperature Pulse Rate 86 82 82 Respiratory Rate 15 25 H 18 Blood Pressure 106/63 76/49 L Pulse Oximetry 03/04/18 23:04 03/05/18 00:00 03/05/18 01:00 Temperature 98.8 F Pulse Rate 86 86 82 Respiratory Rate 20 24 23 Blood Pressure 86/51 L 82/55 L 84/58 L Pulse Oximetry 99 03/05/18 02:00 03/05/18 02:14 03/05/18 03:00 Temperature Pulse Rate 84 86 84 Respiratory Rate 26 H 33 H 30 H Blood Pressure 95/56 L 99/63 L Pulse Oximetry 03/05/18 03:45 03/05/18 04:00 03/05/18 05:00 Temperature 98.9 F Pulse Rate 94 H 94 H 90 Respiratory Rate 28 H 26 H 17 Blood Pressure 98/59 L 98/59 L Pulse Oximetry 94 L 03/05/18 05:05 03/05/18 06:00 03/05/18 06:30 Temperature 98.8 F Pulse Rate 82 86 93 H Respiratory Rate 23 20 20 Blood Pressure 94/59 L 109/78 Pulse Oximetry 93 L 03/05/18 08:49 03/05/18 08:51 03/05/18 09:00 Temperature 98.7 F Pulse Rate 82 82 82 Respiratory Rate 26 H 26 H 27 H Blood Pressure 84/48 L 74/42 L 79/51 L Pulse Oximetry 03/05/18 09:36 03/05/18 10:00 08/28/18 11:08 Temperature Pulse Rate 84 78 84 Respiratory Rate 27 H 25 H 20 Blood Pressure 83/46 L 83/49 L 86/55 L Pulse Oximetry 03/05/18 12:26 03/05/18 14:41 03/05/18 15:45 Temperature 98.7 F Pulse Rate 84 84 84 Respiratory Rate 29 H 28 H 25 H Blood Pressure 91/59 L 99/54 L 99/57 L Pulse Oximetry 03/05/18 16:00 Temperature 98.6 F Pulse Rate 78 Respiratory Rate 19 Blood Pressure 96/50 L Pulse Oximetry Intake & Output 03/04/18 03/05/18 03/05/18 18:59 06:59 18:59 Intake Total 3840 / 3840 1870 / 1870 1684 / 1684 Output Total 800 / 800 Balance 3040 / 3040 1870 / 1870 1684 / 1684 Weight 59.7 kg Intake: IV 2960 / 2960 1870 / 1870 684 / 684 KCl Inj 20 MEQ In LR 1000 mL 1010 / 1010 1010 / 1010 Inj 1,000 ML @ 100 mls/hr IV. CONT .Q10H6M BRENDA Rx#:[id number] Cipro 400 MG/200 ML Inj 400 mg 400 / 400 400 / 400 200 / 200 In 200 ml @ 200 mls/hr IV.SIG Q8H BRENDA Rx#:[id number] Venofer Inj 200 MG In NS Inj 110 / 110 110 / 110 100 ML @ 110 mls/hr IV.SIG DAILY BRENDA Rx#:[id number] Magnesium Sulfate Inj 2 GM In 200 / 200 NS Inj 96 ML @ 50 mls/hr IV.SIG UNSCH PRN Rx#:[id number] KCl Inj 40 MEQ Magnesium 0 / 0 274 / 274 Sulfate Inj 2 GM In NS Inj 250 ML @ 50 mls/hr IV.SIG ONCE ONE Rx#:[id number] NS Inj 1,000 ML @ Wide Open IV. 1000 / 1000 SIG BOLUS BRENDA Rx#:[id number] NS Inj 250 ML @ 15 mls/hr IV. 40 / 40 SIG ONCE BRENDA Rx#:[id number] Sodium Phosphate Inj 30 MMOL In 260 / 260 NS Inj 250 ML @ 40 mls/hr IV. SIG ONCE ONE Rx#:[id number] Flagyl 500 MG Inj 100 ML @ 100 200 / 200 200 / 200 100 / 100 mls/hr IV.SIG Q8H BRENDA Rx#: [id number] Oral 480 / 480 Anesthesia Amount 1000 / 1000 Intake (Blood Product) Amt 400 / 400 Rbc As-3 Leukoreduced Unit 400 / 400 [id number] Output: Urine 400 / 400 Stool 400 / 400 Other: # Voids 6 6 Date of Last Bowel Movement 03/04/18 03/04/18 03/05/18 Result Diagrams: 03/05/18 04:15 03/05/18 04:15 Laboratory Results: Laboratory Results - last 24 hr 03/04/18 03/04/18 03/04/18 15:00 19:12 19:25 CBC w Diff WBC RBC Hgb 10.1 L D Hct 29.1 L MCV MCH MCHC RDW Plt Count MPV Neut % (Auto) Lymph % (Auto) [place] % (Auto) Eos % (Auto) Baso % (Auto) Neut # (Auto) Lymph # (Auto) [place] # (Auto) Eos # (Auto) Baso # (Auto) WBC Differential Diff Scan Differential Comment Platelet Estimate Platelet Morphology Retic Count Absolute Retic Sodium Potassium Chloride Carbon Dioxide Anion Gap BUN Creatinine Estimated GFR POC Glucose 117 H Random Glucose Calcium Prot Corrected Calcium Magnesium Total Bilirubin Direct Bilirubin AST ALT Alkaline Phosphatase Lactate Dehydrogenase Total Creatine Kinase CK-MB (CK-2) CK-MB (CK-2) % Total Protein Albumin Cortisol 8.9 Hepatitis A IgM Ab Hep Bs Antigen Hep B Core IgM Ab Hep C IgG Ab 03/05/18 03/05/18 03/05/18 04:15 04:15 08:55 CBC w Diff Slide review pending WBC 4.6 RBC 2.70 L Hgb 10.2 L Hct 28.5 L MCV 105.7 H D MCH 37.7 H MCHC 35.6 RDW 15.5 Plt Count 71 L MPV 9.6 Neut % (Auto) 77.5 H Lymph % (Auto) 10.4 [place] % (Auto) 9.7 H Eos % (Auto) 0.7 Baso % (Auto) 1.7 Neut # (Auto) 3.6 Lymph # (Auto) 0.5 L [place] # (Auto) 0.4 Eos # (Auto) 0.0 Baso # (Auto) 0.1 WBC Differential . Diff Scan Auto diff confirmed Differential Comment . Platelet Estimate Low L Platelet Morphology Enlarged H Retic Count 2.4 Absolute Retic 65.3 Sodium 141 Potassium 4.0 Chloride 112 H Carbon Dioxide 18.4 L Anion Gap 11 BUN 2 L Creatinine 0.47 L Estimated GFR Greater than 89 POC Glucose 143 H Random Glucose 127 H Calcium 6.5 L* Prot Corrected Calcium 7.4 L* Magnesium 1.8 Total Bilirubin 1.9 H Direct Bilirubin AST 154 H ALT 79 H Alkaline Phosphatase 141 H Lactate Dehydrogenase 359 H Total Creatine Kinase CK-MB (CK-2) CK-MB (CK-2) % Total Protein 5.2 L D Albumin 1.9 L Cortisol Hepatitis A IgM Ab Hep Bs Antigen Hep B Core IgM Ab Hep C IgG Ab 03/05/18 03/05/18 03/05/18 10:20 10:20 10:20 CBC w Diff WBC RBC Hgb Hct MCV MCH MCHC RDW Plt Count MPV Neut % (Auto) Lymph % (Auto) [place] % (Auto) Eos % (Auto) Baso % (Auto) Neut # (Auto) Lymph # (Auto) [place] # (Auto) Eos # (Auto) Baso # (Auto) WBC Differential Diff Scan Differential Comment Platelet Estimate Platelet Morphology Retic Count Absolute Retic Sodium Potassium Chloride Carbon Dioxide Anion Gap BUN Creatinine Estimated GFR POC Glucose Random Glucose Calcium Prot Corrected Calcium Magnesium Total Bilirubin 1.9 H 1.9 H Direct Bilirubin 1.6 H AST ALT Alkaline Phosphatase Lactate Dehydrogenase Total Creatine Kinase 1345 H CK-MB (CK-2) 8.7 H CK-MB (CK-2) % 0.6 Total Protein Albumin Cortisol Hepatitis A IgM Ab Nonreactive Hep Bs Antigen Nonreactive Hep B Core IgM Ab Nonreactive Hep C IgG Ab Nonreactive 03/05/18 03/05/18 12:08 16:35 CBC w Diff WBC RBC Hgb Hct MCV MCH MCHC RDW Plt Count MPV Neut % (Auto) Lymph % (Auto) [place] % (Auto) Eos % (Auto) Baso % (Auto) Neut # (Auto) Lymph # (Auto) [place] # (Auto) Eos # (Auto) Baso # (Auto) WBC Differential Diff Scan Differential Comment Platelet Estimate Platelet Morphology Retic Count Absolute Retic Sodium Potassium Chloride Carbon Dioxide Anion Gap BUN Creatinine Estimated GFR POC Glucose 122 H 96 Random Glucose Calcium Prot Corrected Calcium Magnesium Total Bilirubin Direct Bilirubin AST ALT Alkaline Phosphatase Lactate Dehydrogenase Total Creatine Kinase CK-MB (CK-2) CK-MB (CK-2) % Total Protein Albumin Cortisol Hepatitis A IgM Ab Hep Bs Antigen Hep B Core IgM Ab Hep C IgG Ab Culture Results: Microbiology 03/02/18 16:55 Giardia Antigen (SARAHI) - Final Stool Negative - No Giardia Antigen detected In selected cases of patients with a history of immunosuppression or foreign travel, a full ova and parasites examination may be desired. Contact the microbiology lab if full workup is indicated and subit another specimen for testing. 03/02/18 16:55 Enteric Pathogens (PCR) - Final Stool No enteric pathogens detected by PCR (No Salmonella sp., Shigella sp., Campylobacter sp., Yersinia enterocolitica, Vibrio sp., Norovirus, or EHEC (Shiga Toxin 1 or Shiga Toxin 2) detected. 03/02/18 11:35 Urine Culture - Final Clean Catch Urine 50-100,000 cfu/mL mixed tierney (probable contaminants) 03/02/18 16:55 Stool for WBCs - Final Stool No WBC's seen Imaging Studies: Impressions Abdomen MRI 03/05/18 00:00 CONCLUSION: 1. 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 Celiac artery and YARI are patent. Typically, stenosis of a single mesenteric artery should not cause significant mesenteric ischemia. However, in a rare but appropriate clinical setting this may be symptomatic. 2. Diffuse atherosclerotic disease in the abdominal aorta. 3. Small bilateral pleural effusions. 4. Hepatic steatosis. Medications: Active Medications Generic Name Dose Route Start Last Admin Trade Name Freq PRN Reason Stop Dose Admin Sodium Chloride 1,000 mls @ 0 mls/hr 03/02/18 12:15 03/03/18 02:08 Ns Inj IV.SIG Infused BOLUS BRENDA Infusion Wide Open Potassium Chloride 20 meq/ 1,010 mls @ 100 mls/hr 03/02/18 16:00 03/05/18 18: 02 Lactated Ringer's IV.CONT Not Given .Q10H6M BRENDA Sodium Chloride 1,000 mls @ 0 mls/hr 03/03/18 01:58 03/03/18 14:43 Ns Inj IV.SIG Infused BOLUS BRENDA Infusion Wide Open Metronidazole/Sodium Chloride 100 mls @ 100 mls/hr 03/03/18 04:00 03/05/18 13 :27 Flagyl 500 Mg Inj IV.SIG Infused Q8H BRENDA Infusion Ciprofloxacin/Dextrose 400 mg in 200 mls @ 200 mls/hr 03/03/18 12:00 13:23 Cipro 400 Mg/200 Ml Inj IV.SIG Infused Q8H BRENDA Infusion Magnesium Sulfate Inj 2 gm/ 100 mls @ 50 mls/hr 03/03/18 13:19 03/04/18 11:00 Sodium Chloride IV.SIG Infused UNSCH PRN Infusion For Magnesium 1.2 - 1.6 mg/dL Sodium Chloride 1,000 mls @ 0 mls/hr 03/03/18 22:38 03/04/18 07:00 Ns Inj IV.SIG Infused BOLUS BRENDA Infusion Wide Open Insulin Aspart 0 unit 03/02/18 17:00 03/05/18 17:59 Novolog Insulin Correctional Sugar Inj SQ Not Given ACHS [facility] Protocol Lactobacillus Acidophilus 1 tab 03/02/18 18:00 03/05/18 12:26 Lactinex PO 1 tab TID BRENDA Administration Morphine Sulfate 2 mg 03/03/18 11:25 03/03/18 11:58 Morphine Inj IV.PUSH 2 mg Q4H PRN Administration PAIN SCALE 1 TO 10 Potassium Phosphate 2,000 mg 03/03/18 13:19 03/03/18 14:17 K-Phos Original PO 2,000 mg Q4H PRN Administration Phosphorus Less Than 2.5 mg/dL Promethazine HCl 25 mg 03/03/18 11:23 03/05/18 12:26 Phenergan PO 25 mg Q4H PRN Administration NAUSEA OR VOMITING Sodium Chloride 2 ml 03/02/18 10:14 03/02/18 10:22 Ns Flush IV.FLUSH 2 ml PRN PRN Administration FLUSH AFTER USING IV ACCESS Objective Remarks: GENERAL: Well-nourished, well-developed patient. SKIN: Warm and dry. No edema. HEAD: Normocephalic. EYES: No scleral icterus. No injection or drainage. NECK: Supple, trachea midline. No JVD or lymphadenopathy. LYMPHATIC: No adenopathy. CARDIOVASCULAR: Regular rate and rhythm without murmurs. RESPIRATORY: Breath sounds equal bilaterally. No accessory muscle use. GASTROINTESTINAL: Abdomen soft, non-tender, nondistended. EXTREMITIES: No cyanosis, or edema. MUSCULOSKELETAL: Adequate muscle tone. NEUROLOGICAL: No obvious focal deficit. Awake, alert, and oriented x3. 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 Her last cycle of chemotherapy was July 2016. She is admitted with worsening diarrhea over the last several months. CT scan of the abdomen shows area of colonic inflammation. She underwent endoscopic and colonoscopic evaluation. There seems to be evidence for colitis. Personal communication with the emg technician suggest that lesion does not look lymphomatous. Her course is complicated by rectal hemorrhoid bleeding which was banded. Her hemoglobin today was stable. She did not require any additional transfusion. She received parenteral iron therapy for support. We await the results of the colon biopsy. We will confirm diagnosis of colitis and not recurrence of her non-Hodgkin's lymphoma. Further recommendations pending on the pathology results. GI following. (1) NHL (non-Hodgkin's lymphoma) Qualifiers: Non-Hodgkin lymphoma type: B-cell B-cell lymphoma type: diffuse large B-cell Lymphoma site: intra-abdominal nodes Qualified Code(s): C83.33 - Diffuse large B-cell lymphoma, intra-abdominal lymph nodes
--- NOTE | 2018-03-05 19:31 | P.PNGI ---
Physical Exam Vital signs: Vital Signs 03/04/18 19:34 03/04/18 20:00 03/04/18 21:00 Temperature 98.0 F Pulse Rate 84 88 88 Respiratory Rate 20 32 H 32 H Blood Pressure 95/54 L 87/54 L Pulse Oximetry 98 03/04/18 21:22 03/04/18 21:24 03/04/18 22:24 Temperature Pulse Rate 106 H 86 Respiratory Rate 37 H 15 Blood Pressure 91/60 L 106/63 Pulse Oximetry 03/04/18 23:00 03/04/18 23:02 03/04/18 23:04 Temperature Pulse Rate 82 82 86 Respiratory Rate 25 H 18 20 Blood Pressure 76/49 L 86/51 L Pulse Oximetry 03/05/18 00:00 03/05/18 01:00 03/05/18 02:00 Temperature 98.8 F Pulse Rate 86 82 84 Respiratory Rate 24 23 26 H Blood Pressure 82/55 L 84/58 L Pulse Oximetry 99 03/05/18 02:14 03/05/18 03:00 03/05/18 03:45 Temperature Pulse Rate 86 84 94 H Respiratory Rate 33 H 30 H 28 H Blood Pressure 95/56 L 99/63 L 98/59 L Pulse Oximetry 03/05/18 04:00 03/05/18 05:00 03/05/18 05:05 Temperature 98.9 F Pulse Rate 94 H 90 82 Respiratory Rate 26 H 17 23 Blood Pressure 98/59 L 94/59 L Pulse Oximetry 94 L 03/05/18 06:00 03/05/18 06:30 03/05/18 08:49 Temperature 98.8 F 98.7 F Pulse Rate 86 93 H 82 Respiratory Rate 20 20 26 H Blood Pressure 109/78 84/48 L Pulse Oximetry 93 L 03/05/18 08:51 03/05/18 09:00 03/05/18 09:36 Temperature Pulse Rate 82 82 84 Respiratory Rate 26 H 27 H 27 H Blood Pressure 74/42 L 79/51 L 83/46 L Pulse Oximetry 03/05/18 10:00 03/05/18 11:08 03/05/18 12:26 Temperature 98.7 F Pulse Rate 78 84 84 Respiratory Rate 25 H 20 29 H Blood Pressure 83/49 L 86/55 L 91/59 L Pulse Oximetry 03/05/18 14:41 03/05/18 15:45 03/05/18 16:00 Temperature 98.6 F Pulse Rate 84 84 78 Respiratory Rate 28 H 25 H 19 Blood Pressure 99/54 L 99/57 L 96/50 L Pulse Oximetry Intake & Output 03/05/18 03/05/18 03/06/18 06:59 18:59 06:59 Intake Total 1870 / 1870 1684 / 1684 Balance 1870 / 1870 1684 / 1684 Weight 59.7 kg Intake: IV 1870 / 1870 684 / 684 KCl Inj 20 MEQ In LR 1000 mL 1010 / 1010 Inj 1,000 ML @ 100 mls/hr IV. CONT .Q10H6M BRENDA Rx#:[id number] Cipro 400 MG/200 ML Inj 400 mg 400 / 400 200 / 200 In 200 ml @ 200 mls/hr IV.SIG Q8H BRENDA Rx#:[id number] Venofer Inj 200 MG In NS Inj 110 / 110 100 ML @ 110 mls/hr IV.SIG DAILY BRENDA Rx#:[id number] KCl Inj 40 MEQ Magnesium 0 / 0 274 / 274 Sulfate Inj 2 GM In NS Inj 250 ML @ 50 mls/hr IV.SIG ONCE ONE Rx#:[id number] Sodium Phosphate Inj 30 MMOL In 260 / 260 NS Inj 250 ML @ 40 mls/hr IV. SIG ONCE ONE Rx#:[id number] Flagyl 500 MG Inj 100 ML @ 100 200 / 200 100 / 100 mls/hr IV.SIG Q8H BRENDA Rx#: [id number] Anesthesia Amount 1000 / 1000 Other: # Voids 6 Date of Last Bowel Movement 03/04/18 03/05/18 Results - Labs CBC & Chem 7: 03/05/18 04:15 03/05/18 04:15 Laboratory Results - last 24 hr 03/04/18 03/05/18 03/05/18 19:25 04:15 04:15 CBC w Diff Slide review pending WBC 4.6 RBC 2.70 L Hgb 10.1 L D 10.2 L Hct 29.1 L 28.5 L MCV 105.7 H D MCH 37.7 H MCHC 35.6 RDW 15.5 Plt Count 71 L MPV 9.6 Neut % (Auto) 77.5 H Lymph % (Auto) 10.4 [place] % (Auto) 9.7 H Eos % (Auto) 0.7 Baso % (Auto) 1.7 Neut # (Auto) 3.6 Lymph # (Auto) 0.5 L [place] # (Auto) 0.4 Eos # (Auto) 0.0 Baso # (Auto) 0.1 WBC Differential . Diff Scan Auto diff confirmed Differential Comment . Platelet Estimate Low L Platelet Morphology Enlarged H Retic Count 2.4 Absolute Retic 65.3 Sodium 141 Potassium 4.0 Chloride 112 H Carbon Dioxide 18.4 L Anion Gap 11 BUN 2 L Creatinine 0.47 L Estimated GFR Greater than 89 POC Glucose Random Glucose 127 H Calcium 6.5 L* Prot Corrected Calcium 7.4 L* Magnesium 1.8 Total Bilirubin 1.9 H Direct Bilirubin AST 154 H ALT 79 H Alkaline Phosphatase 141 H Lactate Dehydrogenase 359 H Total Creatine Kinase CK-MB (CK-2) CK-MB (CK-2) % Total Protein 5.2 L D Albumin 1.9 L Hepatitis A IgM Ab Hep Bs Antigen Hep B Core IgM Ab Hep C IgG Ab 03/05/18 03/05/18 03/05/18 08:55 10:20 10:20 CBC w Diff WBC RBC Hgb Hct MCV MCH MCHC RDW Plt Count MPV Neut % (Auto) Lymph % (Auto) [place] % (Auto) Eos % (Auto) Baso % (Auto) Neut # (Auto) Lymph # (Auto) [place] # (Auto) Eos # (Auto) Baso # (Auto) WBC Differential Diff Scan Differential Comment Platelet Estimate Platelet Morphology Retic Count Absolute Retic Sodium Potassium Chloride Carbon Dioxide Anion Gap BUN Creatinine Estimated GFR POC Glucose 143 H Random Glucose Calcium Prot Corrected Calcium Magnesium Total Bilirubin 1.9 H 1.9 H Direct Bilirubin 1.6 H AST ALT Alkaline Phosphatase Lactate Dehydrogenase Total Creatine Kinase 1345 H CK-MB (CK-2) 8.7 H CK-MB (CK-2) % 0.6 Total Protein Albumin Hepatitis A IgM Ab Hep Bs Antigen Hep B Core IgM Ab Hep C IgG Ab 03/05/18 03/05/18 03/05/18 10:20 12:08 16:35 CBC w Diff WBC RBC Hgb Hct MCV MCH MCHC RDW Plt Count MPV Neut % (Auto) Lymph % (Auto) [place] % (Auto) Eos % (Auto) Baso % (Auto) Neut # (Auto) Lymph # (Auto) [place] # (Auto) Eos # (Auto) Baso # (Auto) WBC Differential Diff Scan Differential Comment Platelet Estimate Platelet Morphology Retic Count Absolute Retic Sodium Potassium Chloride Carbon Dioxide Anion Gap BUN Creatinine Estimated GFR POC Glucose 122 H 96 Random Glucose Calcium Prot Corrected Calcium Magnesium Total Bilirubin Direct Bilirubin AST ALT Alkaline Phosphatase Lactate Dehydrogenase Total Creatine Kinase CK-MB (CK-2) CK-MB (CK-2) % Total Protein Albumin Hepatitis A IgM Ab Nonreactive Hep Bs Antigen Nonreactive Hep B Core IgM Ab Nonreactive Hep C IgG Ab Nonreactive - Imaging Impressions Abdomen MRI 03/05/18 00:00 CONCLUSION: 1. 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 Celiac artery and YARI are patent. Typically, stenosis of a single mesenteric artery should not cause significant mesenteric ischemia. However, in a rare but appropriate clinical setting this may be symptomatic. 2. Diffuse atherosclerotic disease in the abdominal aorta. 3. Small bilateral pleural effusions. 4. Hepatic steatosis. Assessment and Plan - Attending Attestation egd/colon done today , due to IT issues report did not transfer yet from [employer] system to [facility] egd-gastritis/esophagitis/-biopsies colon-diverticulosis, colitis-biopsies taken significant bleeding from external hemorrhoids,clip applied over the one spurting with good control. Discussed with dr Solares -if active bleeding will need stat colorectal surgery eval Recommendations Advnce diet ice pack on external hemorrhoids fu labs trial of cholestyramine
[2018-03-05 22:58] LABS: Folate 16.3 ng/mL (3.1-17.5)
[2018-03-06] MEDS ORDERED: Sod Chloride 0.9% Inj 1,000 ML IV.SIG ONE (01:07)
[2018-03-06] MEDS: Ciprofloxacin 400 MG/200 ML 400 MG/200 ML PIGGYBACK IV.SIG SCH ×4 (03:23→20:17)
[2018-03-06] MEDS: Hydrocortisone/Pramoxine Foam 10 GM Can RECTAL SCH ×4 (03:24→23:59)
[2018-03-06] MEDS: Morphine Inj 4 MG/ML Vial IV.PUSH PRN ×2 (03:31→18:16)
[2018-03-06 05:14] LABS: Baso % (Auto) 0.6 % (0.0-2.0); Eos % (Auto) 1.1 % (0.0-4.0); Hematocrit 27.8 % (35.0-46.0); Hemoglobin 9.4 gm/dL (11.6-15.3); Lymph # (Auto) 0.4 th/mm3 (1.0-4.8); Lymph % (Auto) 8.5 % (9.0-44.0); Mean Corpuscular HGB Conc 33.8 % (32.0-36.0); Mean Corpuscular Hemoglobin 36.3 pg (27.0-34.0); Mean Corpuscular Volume 107.2 fL (80.0-100.0); Mean Platelet Volume 9.3 fL (7.0-11.0); Mono # (Auto) 0.4 th/mm3 (0.0-0.9); Mono % (Auto) 9.4 % (0.0-8.0); Neut # (Auto) 3.4 th/mm3 (1.8-7.7); Neut % (Auto) 80.4 % (16.0-70.0); Platelet Count 80 th/mm3 (150-450); Red Blood Count 2.59 mil/mm3 (4.00-5.30); Red Cell Distribution Width 14.9 % (11.6-17.2); White Blood Count 4.2 th/mm3 (4.0-11.0)
[2018-03-06 05:20] LABS: Chloride 112 meq/L (98-107); Potassium 3.2 meq/L (3.5-5.1); Sodium 142 meq/L (136-145)
[2018-03-06 05:29] LABS: Alanine Aminotransferase 65 U/L (10-53); Albumin 1.7 g/dL (3.4-5.0); Anion Gap 11 meq/L (5-15); Aspartate Aminotransferase 96 U/L (15-37); Blood Urea Nitrogen 2 mg/dL (7-18); Calcium 6.3 mg/dL (8.5-10.1); Carbon Dioxide 19.1 meq/L (21.0-32.0); Creatine Kinase 775 U/L (26-192); Glomerular Filtration Rate Greater Than 89 mL/min (>89); Glucose,Random 154 mg/dL (74-106); Total Protein 4.8 g/dL (6.4-8.2)
[2018-03-06 05:30] LABS: Alkaline Phosphatase 133 U/L (45-117)
[2018-03-06 05:54] LABS: CKMB Percent 0.7 % (0.0-4.0); Creatine Kinase MB 5.2 ng/mL (0.5-3.6)
[2018-03-06] MEDS: Potassium Chlor 20 mEq Premix 20 MEQ/100 ML PIGGYBACK IV.SIG PRN ×3 (06:18→11:22)
[2018-03-06] MEDS ORDERED: Calcium Gluconate Inj 2 GM in Dextrose 5% in Water Inj 100 ML IV.SIG ONE ×2 (09:00)
[2018-03-06] MEDS: Lactobacillus Acidophilus/L. Spores Tablet PO SCH ×3 (10:48→18:17)
[2018-03-06] MEDS: Insulin NovoLOG Aspart Correctional Sugar Inj SQ SCH ×4 (10:49→20:40)
[2018-03-06] MEDS ORDERED: Albumin Human 5% Inj 500 ML IV.SIG ONE (12:45)
[2018-03-06] MEDS ORDERED: Temazepam 15 MG Capsule PO PRN (12:49)
--- NOTE | 2018-03-06 12:53 | P.PN ---
Subjective Interval history: 58-year-old female who is seen and examined today in follow-up for colitis, GI bleed. Patient appears to be doing much better. She still having significant amount of stool output contributing to her significant electrolyte loss. Patient is inquiring about how long she is going be required to be in the hospital. She is feeling better. Vital signs with mildly low blood pressure. Patient remains afebrile. Physical Exam Vital signs: Vital Signs 03/05/18 14:41 03/05/18 15:45 03/05/18 16:00 Temperature 98.6 F Pulse Rate 84 84 78 Respiratory Rate 28 H 25 H 19 Blood Pressure 99/54 L 99/57 L 96/50 L 03/05/18 18:19 03/05/18 19:00 03/05/18 20:00 Temperature 98.4 F Pulse Rate 88 80 Respiratory Rate 22 31 H Blood Pressure 91/60 L 93/72 L 90/58 L 03/05/18 22:00 03/05/18 23:00 03/06/18 00:00 Temperature 99 F Pulse Rate 84 86 84 Respiratory Rate 25 H 29 H 24 Blood Pressure 93/56 L 89/50 L 84/51 L 03/06/18 01:00 03/06/18 02:00 03/06/18 03:00 Temperature Pulse Rate 84 82 90 Respiratory Rate 24 26 H 25 H Blood Pressure 77/52 L 84/52 L 94/67 L 03/06/18 04:00 03/06/18 05:00 03/06/18 06:00 Temperature 98.6 F Pulse Rate 82 82 82 Respiratory Rate 27 H 24 25 H Blood Pressure 87/55 L 92/55 L 93/58 L 03/06/18 07:58 Temperature 97.9 F Pulse Rate Respiratory Rate Blood Pressure Intake & Output 03/05/18 03/06/18 03/06/18 18:59 06:59 18:59 Intake Total 1684 / 1684 3570 / 3570 640 / 640 Output Total 2100 / 2100 Balance 1684 / 1684 1470 / 1470 640 / 640 Weight 58.6 kg Intake: IV 684 / 684 2610 / 2610 400 / 400 KCl Inj 20 MEQ In LR 1000 mL 1010 / 1010 Inj 1,000 ML @ 100 mls/hr IV. CONT .Q10H6M [facility] Rx#:[id number] Cipro 400 MG/200 ML Inj 400 mg 200 / 200 400 / 400 200 / 200 In 200 ml @ 200 mls/hr IV.SIG Q8H [facility] Rx#:[id number] Venofer Inj 200 MG In NS Inj 110 / 110 100 ML @ 110 mls/hr IV.SIG DAILY [facility] Rx#:[id number] KCl 20 mEq Premix Inj 20 meq In 100 / 100 100 ml @ 50 mls/hr IV.SIG Q2H PRN Rx#:[id number] KCl Inj 40 MEQ Magnesium 274 / 274 Sulfate Inj 2 GM In NS Inj 250 ML @ 50 mls/hr IV.SIG ONCE ONE Rx#:[id number] NS Inj 1,000 ML @ Wide Open IV. 1000 / 1000 SIG BOLUS ONE Rx#:[id number] Flagyl 500 MG Inj 100 ML @ 100 100 / 100 200 / 200 100 / 100 mls/hr IV.SIG Q8H [facility] Rx#: [id number] Oral 960 / 960 240 / 240 Anesthesia Amount 1000 / 1000 Output: Urine/Stool Mix 2100 / 2100 Other: # Voids 2 Date of Last Bowel Movement 03/05/18 03/05/18 # Incontinent Bowel Movements 1 Narrative: GENERAL: Well-developed, well-nourished, in no acute distress. alert and orientated HEENT: Head is normocephalic without any lesions or masses noted. Facial features are symmetric. Eyes: Extraocular muscles are intact. Conjunctivae were clear. NECK: Supple without any masses. Trachea midline no deviation. No JVD, CARDIAC: Regular rhythm, regular rate. S1/S2 are heard. No murmurs gallops or rubs. LUNGS: Clear to auscultation bilaterally. No wheeze, rhonchi or rales. No use of accessory muscles on inspiration or expiration. ABDOMEN: Soft, nontender. Nondistended. Bowel sounds heard in all 4 quadrants. No organomegaly or masses. Negative rebound, negative guarding EXTREMITIES: No edema, pulses are equal bilaterally. No cyanosis or clubbing NEUROLOGY: Mood and affect appear appropriate. Cranial nerves II through XII grossly intact. Moving all extremities, speech is clear Results - Labs CBC & Chem 7: 03/06/18 04:35 03/06/18 04:35 Laboratory Results - last 24 hr 03/05/18 03/05/18 03/05/18 10:20 16:35 19:05 CBC w Diff WBC RBC Hgb Hct MCV MCH MCHC RDW Plt Count MPV Neut % (Auto) Lymph % (Auto) [place] % (Auto) Eos % (Auto) Baso % (Auto) Neut # (Auto) Lymph # (Auto) [place] # (Auto) Eos # (Auto) Baso # (Auto) WBC Differential Diff Scan Differential Comment Platelet Estimate Platelet Morphology Sodium Potassium Chloride Carbon Dioxide Anion Gap BUN Creatinine Estimated GFR POC Glucose 96 Random Glucose Calcium Prot Corrected Calcium Magnesium Total Bilirubin AST ALT Alkaline Phosphatase Total Creatine Kinase CK-MB (CK-2) CK-MB (CK-2) % Total Protein Albumin Vitamin B12 433 Folate 16.3 Hepatitis A IgM Ab Nonreactive Hep Bs Antigen Nonreactive Hep B Core IgM Ab Nonreactive Hep C IgG Ab Nonreactive 03/05/18 03/06/18 03/06/18 21:21 04:35 04:35 CBC w Diff Slide review pending WBC 4.2 RBC 2.59 L Hgb 9.4 L Hct 27.8 L MCV 107.2 H MCH 36.3 H MCHC 33.8 RDW 14.9 Plt Count 80 L MPV 9.3 Neut % (Auto) 80.4 H Lymph % (Auto) 8.5 L [place] % (Auto) 9.4 H Eos % (Auto) 1.1 Baso % (Auto) 0.6 Neut # (Auto) 3.4 Lymph # (Auto) 0.4 L [place] # (Auto) 0.4 Eos # (Auto) 0.0 Baso # (Auto) 0.0 WBC Differential . Diff Scan Auto diff confirmed Differential Comment . Platelet Estimate Low L Platelet Morphology Enlarged H Sodium 142 Potassium 3.2 L D Chloride 112 H Carbon Dioxide 19.1 L Anion Gap 11 BUN 2 L Creatinine 0.52 Estimated GFR Greater than 89 POC Glucose 167 H Random Glucose 154 H Calcium 6.3 L* Prot Corrected Calcium 7.4 L* Magnesium Total Bilirubin 1.7 H AST 96 H ALT 65 H Alkaline Phosphatase 133 H Total Creatine Kinase 775 H CK-MB (CK-2) 5.2 H CK-MB (CK-2) % 0.7 Total Protein 4.8 L Albumin 1.7 L Vitamin B12 Folate Hepatitis A IgM Ab Hep Bs Antigen Hep B Core IgM Ab Hep C IgG Ab 03/06/18 03/06/18 03/06/18 04:35 07:33 11:38 CBC w Diff WBC RBC Hgb Hct MCV MCH MCHC RDW Plt Count MPV Neut % (Auto) Lymph % (Auto) [place] % (Auto) Eos % (Auto) Baso % (Auto) Neut # (Auto) Lymph # (Auto) [place] # (Auto) Eos # (Auto) Baso # (Auto) WBC Differential Diff Scan Differential Comment Platelet Estimate Platelet Morphology Sodium Potassium Chloride Carbon Dioxide Anion Gap BUN Creatinine Estimated GFR POC Glucose 97 115 H Random Glucose Calcium Prot Corrected Calcium Magnesium 1.1 L D Total Bilirubin AST ALT Alkaline Phosphatase Total Creatine Kinase CK-MB (CK-2) CK-MB (CK-2) % Total Protein Albumin Vitamin B12 Folate Hepatitis A IgM Ab Hep Bs Antigen Hep B Core IgM Ab Hep C IgG Ab - Imaging Impressions Abdomen MRI 03/05/18 00:00 CONCLUSION: 1. 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 Celiac artery and YARI are patent. Typically, stenosis of a single mesenteric artery should not cause significant mesenteric ischemia. However, in a rare but appropriate clinical setting this may be symptomatic. 2. Diffuse atherosclerotic disease in the abdominal aorta. 3. Small bilateral pleural effusions. 4. Hepatic steatosis. Assessment and Plan - Assessment (1) Colitis Code(s): K52.9 - Noninfective gastroenteritis and colitis, unspecified Status : Acute (2) Acute UTI Code(s): N39.0 - Urinary tract infection, site not specified Status: Acute - Plan Acute colitis, -Patient with chronic nausea, vomiting, diarrhea for 4 months which has improved during her stay in the hospital -CT scan does show wall thickening of the proximal half of the transverse colon with questionable submucosal edema, inflammation. -Patient empirically started on Cipro and Flagyl -Stool cultures with C. difficile were negative, WBCs were not seen, no enteric pathogen was identified, Giardia was negative, eosinophil stool none were seen -GI consulted and endoscopy was performed today, awaiting results -MRI was done of the abdomen which also indicates moderate 50-55% stenosis of the SMA at the origin. -Cultures and testing were performed from colonoscopy -Patient started on cholestyramine and Lomotil for diarrhea Hyperbilirubinemia with elevated liver enzymes, possible underlying alcohol liver disease improving -Patient does have history of alcohol abuse drinking at least 2 glasses of vodka daily which could be more depending on the day -Patient was counseled on alcohol cessation -CT does show hepatomegaly with steatosis -Liver enzymes appear to be continued to improve Rhabdomyolysis, improving -Unclear etiology at this time -We will need to continue copious IV hydration, encourage p.o. intake -Monitor CPK anemia with macrocytosis -Multifactorial with pancytopenia, possible GI bleed, delusional -Iron stores appear to be appropriate with ferritin 366, retic count is appropriate, haptoglobin is normal -B12 and folate were normal -Endoscopy does indicate distal esophagitis, colitis with internal hemorrhoids, very large external hemorrhoid which was noticed to be bleeding and was clipped and cauterized. History of lymphoma complicated with Pancytopenia -Pancytopenia is multifactorial which could be related to previous treatment of lymphoma, chronic alcohol abuse, possible alcohol liver disease -In remission for 1.5 years, Follows with Dr. Downey. Status post chemotherapy. -Consult placed to Dr. Downey, appreciated branch associate recommendations -Continue monitor labs Abnormal UA, ruled out UTI -UA showing presence of bacteria and white blood cells. -Urine culture indicating 50-100,000 mixed tierney probable contaminants Electrolyte imbalance including Hypokalemia Hypomagnesia Hypocalcemia Suspect secondary to nausea and vomiting, diarrhea -Replete as ordered. Continue to monitor. DVT Prophylaxis: -Sequential compression devices -Avoid chemical prophylaxis secondary to anemia, thrombocytopenia, possible GI bleed Discharge Planning: Discharge planning 24-48 hours depending on patient's response to treatment
--- NOTE | 2018-03-06 16:36 | P.PNGI ---
Subjective Interval history: Still complaining of abdominal pain but no bleeding per rectum and tolerating diet well. Physical Exam Vital signs: Vital Signs 03/05/18 18:19 03/05/18 19:00 03/05/18 20:00 Temperature 98.4 F Pulse Rate 88 80 Respiratory Rate 22 31 H Blood Pressure 91/60 L 93/72 L 90/58 L 03/05/18 22:00 03/05/18 23:00 03/06/18 00:00 Temperature 99 F Pulse Rate 84 86 84 Respiratory Rate 25 H 29 H 24 Blood Pressure 93/56 L 89/50 L 84/51 L 03/06/18 01:00 03/06/18 02:00 03/06/18 03:00 Temperature Pulse Rate 84 82 90 Respiratory Rate 24 26 H 25 H Blood Pressure 77/52 L 84/52 L 94/67 L 03/06/18 04:00 03/06/18 05:00 03/06/18 06:00 Temperature 98.6 F Pulse Rate 82 82 82 Respiratory Rate 27 H 24 25 H Blood Pressure 87/55 L 92/55 L 93/58 L 03/06/18 07:58 03/06/18 09:10 03/06/18 11:14 Temperature 97.9 F Pulse Rate 82 86 Respiratory Rate 31 H 28 H Blood Pressure 88/61 L 100/61 03/06/18 12:00 Temperature 97.9 F Pulse Rate 84 Respiratory Rate 24 Blood Pressure 99/57 L Intake & Output 03/05/18 03/06/18 03/06/18 18:59 06:59 18:59 Intake Total 1684 / 1684 3570 / 3570 1970 / 1970 Output Total 2100 / 2100 400 / 400 Balance 1684 / 1684 1470 / 1470 1570 / 1570 Weight 58.6 kg Intake: IV 684 / 684 2610 / 2610 1610 / 1610 KCl Inj 20 MEQ In LR 1000 mL 1010 / 1010 1010 / 1010 Inj 1,000 ML @ 100 mls/hr IV. CONT .Q10H6M [facility] Rx#:[id number] Cipro 400 MG/200 ML Inj 400 mg 200 / 200 400 / 400 200 / 200 In 200 ml @ 200 mls/hr IV.SIG Q8H [facility] Rx#:[id number] Venofer Inj 200 MG In NS Inj 110 / 110 100 ML @ 110 mls/hr IV.SIG DAILY [facility] Rx#:[id number] KCl 20 mEq Premix Inj 20 meq In 300 / 300 100 ml @ 50 mls/hr IV.SIG Q2H PRN Rx#:[id number] KCl Inj 40 MEQ Magnesium 274 / 274 Sulfate Inj 2 GM In NS Inj 250 ML @ 50 mls/hr IV.SIG ONCE ONE Rx#:[id number] NS Inj 1,000 ML @ Wide Open IV. 1000 / 1000 SIG BOLUS ONE Rx#:[id number] Flagyl 500 MG Inj 100 ML @ 100 100 / 100 200 / 200 100 / 100 mls/hr IV.SIG Q8H [facility] Rx#: [id number] Oral 960 / 960 360 / 360 Anesthesia Amount 1000 / 1000 Output: Urine 400 / 400 Urine/Stool Mix 2100 / 2100 Other: # Voids 2 Date of Last Bowel Movement 03/05/18 03/05/18 03/05/18 # Incontinent Bowel Movements 1 Results - Labs CBC & Chem 7: 03/06/18 04:35 03/06/18 04:35 Laboratory Results - last 24 hr 03/04/18 03/04/18 03/05/18 15:00 15:00 16:35 CBC w Diff WBC RBC Hgb Hct MCV MCH MCHC RDW Plt Count MPV Neut % (Auto) Lymph % (Auto) [place] % (Auto) Eos % (Auto) Baso % (Auto) Neut # (Auto) Lymph # (Auto) [place] # (Auto) Eos # (Auto) Baso # (Auto) WBC Differential Diff Scan Differential Comment Platelet Estimate Platelet Morphology Sodium Potassium Chloride Carbon Dioxide Anion Gap BUN Creatinine Estimated GFR POC Glucose 96 Random Glucose Calcium Prot Corrected Calcium Magnesium Total Bilirubin AST ALT Alkaline Phosphatase Total Creatine Kinase CK-MB (CK-2) CK-MB (CK-2) % Total Protein Albumin Vitamin B12 Folate LYLA Screen Neg Anti-Smooth Muscle Ab Negative 03/05/18 03/05/18 03/06/18 19:05 21:21 04:35 CBC w Diff Slide review pending WBC 4.2 RBC 2.59 L Hgb 9.4 L Hct 27.8 L MCV 107.2 H MCH 36.3 H MCHC 33.8 RDW 14.9 Plt Count 80 L MPV 9.3 Neut % (Auto) 80.4 H Lymph % (Auto) 8.5 L [place] % (Auto) 9.4 H Eos % (Auto) 1.1 Baso % (Auto) 0.6 Neut # (Auto) 3.4 Lymph # (Auto) 0.4 L [place] # (Auto) 0.4 Eos # (Auto) 0.0 Baso # (Auto) 0.0 WBC Differential . Diff Scan Auto diff confirmed Differential Comment . Platelet Estimate Low L Platelet Morphology Enlarged H Sodium Potassium Chloride Carbon Dioxide Anion Gap BUN Creatinine Estimated GFR POC Glucose 167 H Random Glucose Calcium Prot Corrected Calcium Magnesium Total Bilirubin AST ALT Alkaline Phosphatase Total Creatine Kinase CK-MB (CK-2) CK-MB (CK-2) % Total Protein Albumin Vitamin B12 433 Folate 16.3 LYLA Screen Anti-Smooth Muscle Ab 03/06/18 03/06/18 03/06/18 04:35 04:35 07:33 CBC w Diff WBC RBC Hgb Hct MCV MCH MCHC RDW Plt Count MPV Neut % (Auto) Lymph % (Auto) [place] % (Auto) Eos % (Auto) Baso % (Auto) Neut # (Auto) Lymph # (Auto) [place] # (Auto) Eos # (Auto) Baso # (Auto) WBC Differential Diff Scan Differential Comment Platelet Estimate Platelet Morphology Sodium 142 Potassium 3.2 L D Chloride 112 H Carbon Dioxide 19.1 L Anion Gap 11 BUN 2 L Creatinine 0.52 Estimated GFR Greater than 89 POC Glucose 97 Random Glucose 154 H Calcium 6.3 L* Prot Corrected Calcium 7.4 L* Magnesium 1.1 L D Total Bilirubin 1.7 H AST 96 H ALT 65 H Alkaline Phosphatase 133 H Total Creatine Kinase 775 H CK-MB (CK-2) 5.2 H CK-MB (CK-2) % 0.7 Total Protein 4.8 L Albumin 1.7 L Vitamin B12 Folate LYLA Screen Anti-Smooth Muscle Ab 03/06/18 11:38 CBC w Diff WBC RBC Hgb Hct MCV MCH MCHC RDW Plt Count MPV Neut % (Auto) Lymph % (Auto) [place] % (Auto) Eos % (Auto) Baso % (Auto) Neut # (Auto) Lymph # (Auto) [place] # (Auto) Eos # (Auto) Baso # (Auto) WBC Differential Diff Scan Differential Comment Platelet Estimate Platelet Morphology Sodium Potassium Chloride Carbon Dioxide Anion Gap BUN Creatinine Estimated GFR POC Glucose 115 H Random Glucose Calcium Prot Corrected Calcium Magnesium Total Bilirubin AST ALT Alkaline Phosphatase Total Creatine Kinase CK-MB (CK-2) CK-MB (CK-2) % Total Protein Albumin Vitamin B12 Folate LYLA Screen Anti-Smooth Muscle Ab Assessment and Plan - Attending Attestation - GI bleeding, S/P Endoclip of spurting hemorrhoids. - Anemia, stable - Diverticulosis - Esophagitis - Gastritis PLAN: Diet as tolerated Serial HH Await biopsies results Supportive care. Further recommendations to follow.
[2018-03-06] MEDS: Diphenoxylate/Atropine 2.5/0.025 MG Tablet PO SCH ×2 (18:17→23:59)
[2018-03-06 22:44] LABS: ABG Base Excess -10.2 mmol/L (-2-2); ABG PCO2 21 mmHg (38-42); ABG PO2 60 mmHg (61-120)
--- NOTE | 2018-03-06 22:54 | XR ---
EXAM DATE: 03/06/2018 10:51 PM EDT AGE/SEX: 58 years / Female INDICATIONS: Shortness of breath. CLINICAL DATA: This is the patient's initial encounter. Patient reports that signs and symptoms have been present for 1 day and indicates a pain score of 0/10. MEDICAL/SURGICAL HISTORY: . Hypertension. Diabetes mellitus type II. Lymphoma. . Infusaport. COMPARISON: [facility] – [place], CHEST PA & LAT, 04/03/2016. . FINDINGS: There is a CT compatible [id number] in place on the right side entering through the right internal jugular approach with the tip overlying the upper right atrium. The heart size is normal. The lungs demonstrate diffuse increased interstitial markings. CONCLUSION: Diffuse increased interstitial markings likely related to edema. These are new. Electronically signed by: Jay Rausch MD 03/06/2018 10:53 PM EDT
[2018-03-06 23:31] LABS: Hematocrit 28.4 % (35.0-46.0); Mean Corpuscular HGB Conc 35.2 % (32.0-36.0); Mean Corpuscular Hemoglobin 37.8 pg (27.0-34.0); Mean Corpuscular Volume 107.1 fL (80.0-100.0); Mean Platelet Volume 9.5 fL (7.0-11.0); Platelet Count 108 th/mm3 (150-450); Red Blood Count 2.65 mil/mm3 (4.00-5.30); Red Cell Distribution Width 15.6 % (11.6-17.2); White Blood Count 7.4 th/mm3 (4.0-11.0)
[2018-03-06 23:49] LABS: Anion Gap 15 meq/L (5-15); Blood Urea Nitrogen 2 mg/dL (7-18); Calcium 7.2 mg/dL (8.5-10.1); Carbon Dioxide 11.9 meq/L (21.0-32.0); Chloride 112 meq/L (98-107); Glomerular Filtration Rate Greater Than 89 mL/min (>89); Glucose,Random 161 mg/dL (74-106); Potassium 6.2 meq/L (3.5-5.1); Sodium 139 meq/L (136-145)
[2018-03-07] MEDS ORDERED: Sodium Bicarbonate 8.4% Inj 50 MEQ/50 ML Syringe IV.PUSH ONE ×2 (00:01→11:40)
--- NOTE | 2018-03-07 00:05 | XR ---
EXAM DATE: 03/06/2018 11:47 PM EDT AGE/SEX: 58 years / Female INDICATIONS: Abdominal pain. CLINICAL DATA: This is the patient's initial encounter. Patient reports that signs and symptoms have been present for 1 day and indicates a pain score of 4/10. MEDICAL/SURGICAL HISTORY: None. None. COMPARISON: [facility], CT ABDOMEN & PELVIS W CONTRAST, 03/02/2018. . FINDINGS: The abdominal bowel gas pattern is normal. No abnormal masses, calcifications, or organomegaly is s een. The osseous structures are unremarkable. Patchy subchondral sclerosis seen of both femoral heads typical of chronic AVN. No perceptible flatte tiesha/collapse. CONCLUSION: Benign-appearing abdomen. 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 Electronically signed by: Jay Inman MD 03/07/2018 12:04 AM EDT
[2018-03-07 00:17] LABS: Total Protein 4.7 g/dL (6.4-8.2)
[2018-03-07 00:18] LABS: Troponin I 0.14 ng/mL (0.02-0.05)
[2018-03-07 00:19] LABS: CKMB Percent 0.9 % (0.0-4.0); Creatine Kinase MB 5.9 ng/mL (0.5-3.6)
[2018-03-07 00:22] LABS: Magnesium 1.1 mg/dL (1.5-2.5)
[2018-03-07 00:28] LABS: Phosphorus 2.7 mg/dL (2.5-4.9)
--- NOTE | 2018-03-07 02:44 | CT ---
EXAM DATE: 03/07/2018 2:37 AM EDT AGE/SEX: 58 years / Female INDICATIONS: Evaluate for embolism. Chest pain. Shortness of breath. CLINICAL DATA: This is the patient's initial encounter. Patient reports that signs and symptoms have been present for 2 days and indicates a pain score of 5/10. MEDICAL/SURGICAL HISTORY: Diabetes. Lymphoma. None. RADIATION DOSE: 10.45 CTDI (mGy) COMPARISON: [facility], CT CHEST W/O CONTRAST, 10/30/2017. [facility], CHEST 1V SINGLE AP, 03/06/2018. . TECHNIQUE: Volumetric scanning was performed using a multi-row detector CT scanner during bolus infu margarita of 75 ml Omnipaque 350 (iohexol) nonionic water-soluble contrast as a single exam dose. The paul a was post processed with a variety of visualization algorithms including full volume maximum intensi ty projection and sliding thin slab reformation. Using automated exposure control and adjustment of the mA and/or kV according to patient size, radiation dose was kept as low as reasonably achievable t o obtain optimal diagnostic quality images. DICOM format image data is available electronically for review and comparison. FINDINGS: There is no pulmonary embolus. Moderate-sized bilateral pleural effusions are present. There is mild dependent/compressive atelectas is of both lower lobes. Diffuse thickening is present of the interlobular septa and there are patchy alveolar opacities. Mild emphysema present. There is right and left side coronary artery calcification. Thoracic aorta is atherosclerotic. No aneurysm or dissection demonstrated. CONCLUSION: 1. Pulmonary edema and moderate bilateral pleural effusions with dependent/compressive atelectasis. 2. No pulmonary embolus. 3. Coronary artery calcification. Electronically signed by: Jay Inman MD 03/07/2018 2:43 AM EDT
[2018-03-07] MEDS: Ciprofloxacin 400 MG/200 ML 400 MG/200 ML PIGGYBACK IV.SIG SCH ×2 (03:34→13:01)
[2018-03-07] MEDS: Hydrocortisone/Pramoxine Foam 10 GM Can RECTAL SCH ×3 (05:31→16:31)
[2018-03-07] MEDS ORDERED: Albumin Human 25% Inj 50 ML IV.SIG ONE (05:48)
[2018-03-07] MEDS: Diphenoxylate/Atropine 2.5/0.025 MG Tablet PO SCH ×3 (06:00→17:27)
[2018-03-07 07:51] LABS: IgA Serum 178 mg/dL (81-463); Tissue Transglutaminase Ab IgG ND U/mL (())
[2018-03-07 08:15] LABS: Baso % (Auto) 0.1 % (0.0-2.0); Eos % (Auto) 0.2 % (0.0-4.0); Hematocrit 29.6 % (35.0-46.0); Hemoglobin 9.9 gm/dL (11.6-15.3); Lymph # (Auto) 0.4 th/mm3 (1.0-4.8); Lymph % (Auto) 7.5 % (9.0-44.0); Mean Corpuscular HGB Conc 33.5 % (32.0-36.0); Mean Corpuscular Volume 107.5 fL (80.0-100.0); Mean Platelet Volume 9.1 fL (7.0-11.0); Mono # (Auto) 0.4 th/mm3 (0.0-0.9); Mono % (Auto) 7.5 % (0.0-8.0); Neut # (Auto) 4.8 th/mm3 (1.8-7.7); Neut % (Auto) 84.7 % (16.0-70.0); Platelet Count 98 th/mm3 (150-450); Red Blood Count 2.76 mil/mm3 (4.00-5.30); Red Cell Distribution Width 14.8 % (11.6-17.2); White Blood Count 5.6 th/mm3 (4.0-11.0)
[2018-03-07 08:32] LABS: Troponin I 0.21 ng/mL (0.02-0.05)
[2018-03-07 08:39] LABS: Alanine Aminotransferase 58 U/L (10-53); Albumin 2.7 g/dL (3.4-5.0); Alkaline Phosphatase 143 U/L (45-117); Anion Gap 13 meq/L (5-15); Aspartate Aminotransferase 63 U/L (15-37); Blood Urea Nitrogen 3 mg/dL (7-18); Calcium 7.7 mg/dL (8.5-10.1); Carbon Dioxide 19.4 meq/L (21.0-32.0); Chloride 108 meq/L (98-107); Creatine Kinase 423 U/L (26-192); Glomerular Filtration Rate Greater Than 89 mL/min (>89); Glucose,Random 115 mg/dL (74-106); Magnesium 2.4 mg/dL (1.5-2.5); Potassium 3.8 meq/L (3.5-5.1); Sodium 140 meq/L (136-145); Total Protein 5.9 g/dL (6.4-8.2)
[2018-03-07 08:44] LABS: CKMB Percent 1.2 % (0.0-4.0); Creatine Kinase MB 5.1 ng/mL (0.5-3.6)
[2018-03-07] MEDS: Lactobacillus Acidophilus/L. Spores Tablet PO SCH ×3 (09:06→17:26)
[2018-03-07 09:13] LABS: Platelet Morphology Normal (Normal); Toxic Granulation 1+
--- NOTE | 2018-03-07 11:33 | ECG ---
Date Performed: 03/06/2018 Time Performed: 22:33:54 PTAGE: 58 years EKG: SINUS TACHYCARDIA LOW QRS VOLTAGE POSSIBLE RIGHT VENTRICULAR CONDUCTION DELAY INFERIOR MYOC ARDIAL INFARCTION ANTEROSEPTAL MYOCARDIAL INFARCTION ABNORMAL ECG PREVIOUS TRACING : 03/04/2018 08.18 Compared to previous tracing, infarct patterns appear new C linical correlation is recommended DOCTOR: Selwyn Leblanc Interpretating Date/Time 03/07/2018 11:32:05
--- NOTE | 2018-03-07 11:35 | ECG ---
Date Performed: 03/07/2018 Time Performed: 04:37:34 PTAGE: 58 years EKG: SINUS TACHYCARDIA LOW QRS VOLTAGE POSSIBLE RIGHT VENTRICULAR CONDUCTION DELAY INFERIOR MYOC ARDIAL INFARCTION ANTEROSEPTAL MYOCARDIAL INFARCTION ABNORMAL ECG PREVIOUS TRACING : 03/06/2018 22.33 Compared to previous tracing, T waves are slightly more inv erted in anterior leads. Clinical correlation is recommended DOCTOR: Selwyn Leblanc Interpretating Date/Time 03/07/2018 11:33:03
--- NOTE | 2018-03-07 11:49 | ECHRPT ---
Indication: HEART FAILRE CONCLUSIONS The left ventricular systolic function is severely reduced with an estimated ejection fraction in th e range of 30-35%. Normal left ventricular size. Wall thickness is normal. Trace mitral valve regurgitation. Mild mitral annular calcification. There is trace tricuspid valve regurgitation. BP: / HR: Rhythm: Sinus MEASUREMENTS (Male / Female) Normal Values Technical Quality:Good 2D ECHO LV Diastolic Diameter PLAX 4.7 cm 4.2 - 5.9 / 3.9 - 5.3 cm LV Systolic Diameter PLAX 4.0 cm IVS Diastolic Thickness 0.8 cm 0.6 - 1.0 / 0.6 - 0.9 cm LVPW Diastolic Thickness 0.8 cm 0.6 - 1.0 / 0.6 - 0.9 cm LV Relative Wall Thickness 0.3 RV Internal Dim ED PLAX 2.9 cm LVOT Diameter 1.7 cm LV Ejection Fraction MOD 4C 37.1 % LV Ejection Fraction 4C AL 37.9 % M-MODE Aortic Root Diameter MM 2.5 cm LA Systolic Diameter MM 2.9 cm LA Ao Ratio MM 1.2 AV Cusp Separation MM 1.7 cm DOPPLER AV Peak Velocity 96.4 cm/s AV Peak Gradient 3.7 mmHg LVOT Peak Velocity 66.6 cm/s LVOT Peak Gradient 1.8 mmHg AV Area Cont Eq pk 1.6 cm MV Area PHT 6.9 cm Mitral E Point Velocity 86.9 cm/s Mitral A Point Velocity 45.9 cm/s Mitral E to A Ratio 1.9 LV E' Lateral Velocity 5.2 cm/s Mitral E to LV E' Lateral Ratio 16.8 LV E' Septal Velocity 4.3 cm/s Mitral E to LV E' Septal Ratio 20.3 TR Peak Velocity 204.0 cm/s TR Peak Gradient 16.6 mmHg Right Atrial Pressure 10.0 mmHg Pulmonary Artery Systolic Pressu 26.6 mmHg Right Ventricular Systolic Press 26.6 mmHg PV Peak Velocity 51.6 cm/s PV Peak Gradient 1.1 mmHg FINDINGS LEFT VENTRICLE The left ventricular systolic function is severely reduced with an estimated ejection fraction in th e range of 30-35%. Normal left ventricular size. Wall thickness is normal. RIGHT VENTRICLE Normal right ventricular size and systolic function. LEFT ATRIUM The left atrial size is normal. RIGHT ATRIUM The right atrial size is normal. ATRIAL SEPTUM Normal atrial septal thickness without atrial level shunting by limited color doppler interrogation. AORTA The aortic root and proximal ascending aorta are normal in size on limited imaging. MITRAL VALVE Structurally normal mitral valve. Trace mitral valve regurgitation. Mild mitral annular calcification. AORTIC VALVE Trileaflet aortic valve. No aortic valve stenosis or regurgitation. TRICUSPID VALVE Structurally normal tricuspid valve. There is trace tricuspid valve regurgitation. PULMONARY VALVE No pulmonary valve regurgitation or stenosis. VESSELS The inferior vena cava is normal in size. PERICARDIUM No pericardial effusion. Rashid Pickett MD, FACC (Electronically Signed) Final Date:07 March 2018 11:48
[2018-03-07] MEDS: Insulin NovoLOG Aspart Correctional Sugar Inj SQ SCH ×4 (11:56→20:11)
--- NOTE | 2018-03-07 12:42 | XR ---
EXAM DATE: 03/07/2018 12:29 PM EDT AGE/SEX: 58 years / Female INDICATIONS: Short of breath, congestion, epigastirc pain. CLINICAL DATA: This is the patient's initial encounter. Patient reports that signs and symptoms have been present for 4 - 6 days and indicates a pain score of 6/10. MEDICAL/SURGICAL HISTORY: . Diabetes mellitus type II. Hypercholesterolemia. Lymphoma. Hystere ctomy. Infusaport. COMPARISON: [facility], CHEST 1V SINGLE AP, 03/06/2018. . FINDINGS: Stable right IJ [id number]. Left lower lobe airspace consolidation with small left pleural effusio n. Cardiomediastinal contours are stable. Central pulmonary vascularity is indistinct. CONCLUSION: 1. Small left pleural effusion with associated left lower lobe airspace consolidation. 2. Persistent mild positive fluid balance. Electronically signed by: Robert Stevens MD 03/07/2018 12:40 PM EDT
[2018-03-07] MEDS ORDERED: Sodium Bicarbonate 8.4% Inj 150 MEQ in Dextrose 5% in Water Inj 850 ML IV.CONT SCH ×2 (13:00)
[2018-03-07 13:09] LABS: ABG Base Excess -5.6 mmol/L (-2-2); ABG PCO2 25 mmHg (38-42); ABG PO2 67 mmHg (61-120)
[2018-03-07 13:11] LABS: VBG Base Excess -1.9 mmol/L (-2-2); VBG Blood Gas Oxygen Content 6.5 Vol % (9.0-17.0); VBG PCO2 31 mmHG (44-48); VBG PH 7.46 (7.360-7.400); VBG PO2 28 mmHG (35-40)
[2018-03-07 13:47] LABS: Troponin I 0.21 ng/mL (0.02-0.05)
[2018-03-07 13:58] LABS: CKMB Percent 1.2 % (0.0-4.0)
--- NOTE | 2018-03-07 14:11 | P.CONCC ---
History of Present Illness Consult date: 03/07/18 Requesting Physician: Summer Stahl Reason for Consult: Critical care management Primary Care Provider: Jay Mcnair Chief Complaint: Abdominal pain, nausea and vomiting History of Present Illness: 58-year-old female with known history of hyperlipidemia, diabetes, gastroesophageal reflux, history of lymphoma who presented to the hospital initially because of abdominal pain, chronic diarrhea, nausea vomiting for 4 months. Patient is being followed by Dr. Thomas in the outpatient setting for the chronic diarrhea. She underwent endoscopy on October this year there was a stricture found and was dilated at that time. Colonoscopy was scheduled for next Sunday however due to the patient's increased nausea vomiting diarrhea she came to the emergency department for evaluation. Patient had significant workup done in the hospital to include full stool evaluation for any infectious process which was unremarkable. CT scan did indicate signs of colitis in the proximal half of the transverse colon with submucosal edema. Patient was admitted the hospital and GI consultation was requested and performed. Patient did undergo colonoscopy which did indicate colitis, biopsies were taken. Patient did have internal hemorrhoids +1 external hemorrhoid that needed to be clipped. The patient's stay her hemoglobin was monitored and her hemoglobin did drop down to 7.8 and given that she had heme positive stools she is transfused 1 unit of packed red blood cells which her hemoglobin went back up to 10.1. Patient's hemoglobin has maintained stability since then. Patient was in the ICU secondary to continued hypotension secondary to hypovolemia from her nausea, vomiting, diarrhea. Patient was on electrolyte replacement protocol due to electrolyte loss from diarrhea. Patient was started on Questran and Lomotil with significant improvement. Patient was given multiple liters of fluid boluses as well as albumin infusions with improvement of her blood pressure. Patient does have history of chronic anemia which appears to be macrocytic. Hematology was consulted for further recommendations in reference to the patient's history of lymphoma, chronic anemia, pancytopenia. Patient was actually doing well and was transferred to the medical floor. However last evening the patient had acute onset of shortness of breath. There is no indication chest pain, abdominal pain, nausea, vomiting. Patient had significant workup performed which did indicate a acute troponin elevation, significant elevation of BNP. Chest x-ray did showed new findings of pulmonary edema, pulmonary angiogram was performed which did show significant pulmonary edema with bilateral pleural effusions. Patient was transferred back to the ICU due to acute hypoxic respiratory failure. Patient was requiring 6 L nasal cannula maintain O2 saturations greater than 92%. Upon review of the EKGs it does appears patient had acute changes with Q-wave presentation in the inferior leads. Due to the patient's respiratory failure, significant hypotension, acute myocardial infarction, acute cardiomyopathy, acute congestive heart failure critical care consultation was requested for management in the ICU. Review of Systems All other systems reviewed negative except as stated in HPI Respiratory: Reports shortness of breath PMFSH - History History Provided By: Patient, Family Member - Medical History Medical History: Medical History (Last Reviewed 03/07/18 @ 14:09 by TIMI Carrera) Diabetes High cholesterol History of appendicitis History of benign tumor of tongue History of chemotherapy History of hysterectomy History of lymphoma - Surgical History Surgical History: Surgical History (Last Reviewed 03/07/18 @ 14:09 by TIMI Carrera) History of appendectomy History of arthroplasty of knee History of partial hysterectomy History of tonsillectomy History of tubal ligation - Family History Family History: Family History (Last Reviewed 03/07/18 @ 14:09 by TIMI Carrera) Other No pertinent family history - Tobacco History Second Hand Smoke Exposure: Yes Tobacco Use In Past 30 Days: Yes Smoking Status: Current every day smoker Tobacco Type: Cigarettes - Alcohol History How Often Do You Have a Drink Containing Alcohol: 2 to 4 times a month - Substance Use History Substance History: No History of Abuse - Travel History Recent Travel in the [place] Within the Last 8 Weeks: No Recent Travel Out of the Country Within the Last 8 Weeks: No - Immunization History Tetanus Immunization: Unsure Hx Influenza Vaccine This Season: No Medications and Allergies Allergies Allergy/AdvReac Type Severity Reaction Status Date / Time No Known Allergies Allergy Unverified 03/02/18 09:30 Home Medications Medication Instructions Recorded Confirmed Type atorvastatin 80 mg PO HS 03/02/18 03/03/18 History fenofibrate 160 mg PO HS 03/02/18 03/03/18 History metformin 1,000 mg PO HS 03/02/18 03/03/18 History omeprazole 40 mg PO DAILY 03/02/18 03/03/18 History ondansetron [Zofran ODT] 8 mg PO TID PRN 03/02/18 03/03/18 History Women's One Daily 03/03/18 History acetaminophen [Tylenol Extra 500 mg PO DAILY 03/03/18 03/03/18 History Strength] aspirin [Xavier Aspirin] 162 mg PO DAILY 03/03/18 03/03/18 History losartan 25 mg PO DAILY 03/03/18 03/03/18 History potassium gluconate 550 mg PO DAILY 03/03/18 03/03/18 History Active Medications: Active Medications Acetaminophen (Tylenol) 650 mg PO Q4H PRN PRN Reason: Temp > 100.4 Cholestyramine Resin (Questran 4 Gm Pkt) 4 gm PO BID BRENDA Last Admin: 03/07/18 09:06 Dose: 4 gm Dextrose (D50w Vial) 50 ml IV.PUSH UNSCH PRN PRN Reason: PER HYPOGLYCEMIA PROTOCOL Diphenoxylate HCl/Atropine (Lomotil) 1 tab PO Q6HR [facility] Last Admin: 03/07/18 12:38 Dose: 1 tab Glucagon (Glucagon Inj) 1 mg OTHER PRN PRN PRN Reason: for Hypoglycemia Protocol Sodium Chloride (Ns Inj) 1,000 mls @ 0 mls/hr IV.SIG BOLUS [facility] Last Infusion: 03/03/18 02:08 Dose: Infused Sodium Chloride (Ns Inj) 1,000 mls @ 0 mls/hr IV.SIG BOLUS [facility]ENDA Last Infusion: 03/03/18 14:43 Dose: Infused Metronidazole/Sodium Chloride (Flagyl 500 Mg Inj) 100 mls @ 100 mls/hr IV.SIG Q8H BRENDA Last Admin: 03/07/18 13:06 Dose: 100 mls/hr Ciprofloxacin/Dextrose (Cipro 400 Mg/200 Ml Inj) 400 mg in 200 mls @ 200 mls/ hr IV.SIG Q8H BRENDA Last Admin: 03/07/18 13:01 Dose: 200 mls/hr Magnesium Sulfate Inj 2 gm/ (Sodium Chloride) 100 mls @ 50 mls/hr IV.SIG UNSCH PRN PRN Reason: For Magnesium 1.2 - 1.6 mg/dL Last Infusion: 03/04/18 11:00 Dose: Infused Potassium Chloride (Kcl 20 Meq Premix Inj) 20 meq in 100 mls @ 50 mls/hr IV.SIG Q2H PRN PRN Reason: For Potassium 3.3 - 3.5 mEq/L Potassium Chloride (Kcl 40 Meq Premix Inj) 40 meq in 100 mls @ 25 mls/hr IV.SIG UNSCH PRN PRN Reason: For Potassium 3.3 - 3.5 mEq/L Potassium Chloride (Kcl 20 Meq Premix Inj) 20 meq in 100 mls @ 50 mls/hr IV.SIG Q2H PRN PRN Reason: For Potassium 2.8 - 3.2 mEq/L Last Infusion: 03/06/18 13:22 Dose: Infused Potassium Phosphate 30 mmol/ (Sodium Chloride) 260 mls @ 42 mls/hr IV.SIG UNSCH PRN PRN Reason: SEE LABEL COMMENTS Sodium Phosphate 30 mmol/ (Sodium Chloride) 260 mls @ 42 mls/hr IV.SIG UNSCH PRN PRN Reason: For Phosphorus < 2.5 mg/dL Magnesium Sulfate Inj 4 gm/ (Sodium Chloride) 100 mls @ 50 mls/hr IV.SIG UNSCH PRN PRN Reason: For Magnesium 0.9 - 1.1 mg/dL Last Infusion: 03/07/18 03:38 Dose: Infused Potassium Chloride (Kcl 40 Meq Premix Inj) 40 meq in 100 mls @ 25 mls/hr IV.SIG Q2H PRN PRN Reason: For Potassium 2.8 - 3.2 mEq/L Sodium Chloride (Ns Inj) 1,000 mls @ 0 mls/hr IV.SIG BOLUS BRENDA Last Infusion: 03/04/18 07:00 Dose: Infused Sodium Chloride (Ns Inj) 1,000 mls @ 0 mls/hr IV.SIG BOLUS BRENDA Norepinephrine Bitartrate (Levophed-Dextrose 4 Mg/250 Ml Drip) 4 mg in 250 mls @ 7.5 mls/hr IV.SIG TITRATE PRN; Protocol PRN Reason: Per Protocol Last Titration: 03/07/18 13:17 Dose: 3 mcg/min, 11.25 mls/hr Insulin Aspart (Novolog Insulin Correctional Sugar Inj) 0 unit SQ ACHS BRENDA; Protocol Last Admin: 03/07/18 13:23 Dose: Not Given Lactobacillus Acidophilus (Lactinex) 1 tab PO TID BRENDA Last Admin: 03/07/18 13:23 Dose: Not Given Magnesium Oxide (Mag-Ox) 800 mg PO UNSCH PRN PRN Reason: For Magnesium 1.2 - 1.6 mg/dL Morphine Sulfate (Morphine Inj) 2 mg IV.PUSH Q4H PRN PRN Reason: PAIN SCALE 1 TO 10 Last Admin: 03/06/18 18:16 Dose: 2 mg Potassium Bicarb/Potassium Chloride (K-Lyte Cl Eff) 50 meq PO UNSCH PRN PRN Reason: For Potassium 3.3 - 3.5 mEq/L Potassium Phosphate (K-Phos Original) 2,000 mg PO Q4H PRN PRN Reason: Phosphorus Less Than 2.5 mg/dL Last Admin: 03/03/18 14:17 Dose: 2,000 mg Potassium Phosphate (K-Phos Original) 2,000 mg PO UNSCH PRN PRN Reason: SEE LABEL COMMENTS Promethazine HCl (Phenergan) 25 mg PO Q4H PRN PRN Reason: NAUSEA OR VOMITING Last Admin: 03/07/18 09:59 Dose: 25 mg Sodium Chloride (Ns Flush) 2 ml IV.FLUSH PRN PRN PRN Reason: FLUSH AFTER USING IV ACCESS Last Admin: 03/07/18 01:40 Dose: 2 ml Temazepam (Restoril) 15 mg PO HS PRN PRN Reason: Insomnia Terbutaline Sulfate (Brethine Inj) 1 mg SQ UNSCH PRN PRN Reason: For Extravasation Trimethobenzamide HCl (Tigan Ing) 200 mg IM Q6H PRN PRN Reason: NAUSEA OR VOMITING Last Admin: 03/06/18 09:41 Dose: 200 mg Physical Exam Vital signs: Vital Signs 03/06/18 16:00 03/06/18 18:32 03/06/18 20:00 Temperature 98.7 F 97.6 F Pulse Rate 87 118 H Respiratory Rate 20 20 16 Blood Pressure 108/63 101/64 Pulse Oximetry 95 90 L 03/06/18 23:00 03/06/18 23:30 03/07/18 00:00 Temperature Pulse Rate 130 H 116 H Respiratory Rate Blood Pressure Pulse Oximetry 95 03/07/18 01:00 03/07/18 02:00 03/07/18 04:00 Temperature 98 F Pulse Rate 120 H 126 H 110 H Respiratory Rate 20 Blood Pressure 80/61 L Pulse Oximetry 03/07/18 05:00 03/07/18 07:00 03/07/18 08:00 Temperature 98.4 F Pulse Rate 110 H 104 H 104 H Respiratory Rate 17 19 Blood Pressure 88/58 L 91/60 L Pulse Oximetry 96 03/07/18 08:14 03/07/18 08:38 03/07/18 08:42 Temperature Pulse Rate 106 H 102 H Respiratory Rate 32 H 25 H Blood Pressure 93/60 L 90/60 L Pulse Oximetry 97 97 95 03/07/18 09:00 03/07/18 09:38 03/07/18 10:00 Temperature Pulse Rate 98 H 104 H 102 H Respiratory Rate 28 H 28 H 25 H Blood Pressure 81/59 L 88/52 L 100/61 Pulse Oximetry 99 95 96 03/07/18 10:52 03/07/18 11:00 03/07/18 12:45 Temperature Pulse Rate 120 H 118 H Respiratory Rate 32 H Blood Pressure 80/46 L Pulse Oximetry 97 Intake & Output 03/06/18 03/07/18 03/07/18 18:59 06:59 18:59 Intake Total 2270 / 2270 2550 / 2550 50 / 50 Output Total 400 / 400 600 / 600 Balance 1870 / 1870 1950 / 1950 50 / 50 Weight 65.5 kg Intake: IV 1730 / 1730 2310 / 2310 50 / 50 KCl Inj 20 MEQ In LR 1000 mL 1010 / 1010 1610 / 1610 Inj 1,000 ML @ 100 mls/hr IV. CONT .Q10H6M BRENDA Rx#:[id number] Sodium Bicarbonate 8.4% Inj 150 0 / 0 MEQ In D5W Inj 850 ML @ 50 mls /hr IV.CONT .Q20H BRENDA Rx#: [id number] Flexbumin 25% Inj 50 ML @ 60 50 / 50 mls/hr IV.SIG ONCE ONE Rx#: [id number] Calcium Gluconate Inj 2 GM In 120 / 120 D5W Inj 100 ML @ 120 mls/hr IV. SIG ONCE ONE Rx#:[id number] Cipro 400 MG/200 ML Inj 400 mg 200 / 200 400 / 400 In 200 ml @ 200 mls/hr IV.SIG Q8H BRENDA Rx#:[id number] Magnesium Sulfate Inj 4 GM In 100 / 100 NS Inj 92 ML @ 50 mls/hr IV.SIG UNSCH PRN Rx#:[id number] KCl 20 mEq Premix Inj 20 meq In 300 / 300 100 ml @ 50 mls/hr IV.SIG Q2H PRN Rx#:[id number] Flagyl 500 MG Inj 100 ML @ 100 100 / 100 200 / 200 mls/hr IV.SIG Q8H BRENDA Rx#: [id number] Oral 540 / 540 240 / 240 Output: Urine 400 / 400 Urine Amount (Catheter) 600 / 600 Female External 600 / 600 Other: # Voids 2 # Incontinent Voids 1 Date of Last Bowel Movement 03/05/18 03/07/18 03/07/18 # Bowel Movements 2 1 Narrative: GENERAL: Well-developed, well-nourished, in moderate distress. alert and orientated HEENT: Head is normocephalic without any lesions or masses noted. Facial features are symmetric. Eyes: Pupils equal round reactive to light. Tongue is midline without deviation. Buccal mucosa is moist without any masses or lesions NECK: Supple without any masses. Trachea midline no deviation. No JVD, no bruits are appreciated CARDIAC: Regular rhythm, regular rate. S1/S2 are heard. No murmurs gallops or rubs. LUNGS: Diminished breath sounds noted throughout. Mild expiratory wheezes. No use of accessory muscles on inspiration or expiration. Bedside US showed moderate L sided effusion ABDOMEN: Soft, nontender. Nondistended. Bowel sounds heard in all 4 quadrants. No organomegaly or masses. EXTREMITIES: no edema, pulses are equal bilaterally. No cyanosis or clubbing NEUROLOGY: Alert awake oriented, ill appearing. Muscle strength 5/5 in upper and lower extremities bilaterally. Deep tendon reflexes are 2+ in upper and lower extremities bilaterally. - Urinary Catheter Management Female External Cath placed during this visit: no Septic Shock Reassessment Septic shock perfusion: reassessment completed Assessment and Plan - Problem List (1) Acute respiratory failure with hypoxia Code(s): J96.01 - Acute respiratory failure with hypoxia Status: Acute (2) Acute coronary syndrome Code(s): I24.9 - Acute ischemic heart disease, unspecified Status: Acute (3) Cardiogenic shock Code(s): R57.0 - Cardiogenic shock Status: Acute (4) Acute congestive heart failure Code(s): I50.9 - Heart failure, unspecified Status: Acute (5) Elevated troponin Code(s): R74.8 - Abnormal levels of other serum enzymes Status: Acute (6) Elevated brain natriuretic peptide (BNP) level Code(s): R79.89 - Other specified abnormal findings of blood chemistry Status : Acute (7) Bilateral pleural effusion Code(s): J90 - Pleural effusion, not elsewhere classified Status: Acute (8) Metabolic acidosis Code(s): E87.2 - Acidosis Status: Acute (9) Hyperbilirubinemia Code(s): E80.6 - Other disorders of bilirubin metabolism Status: Acute (10) Acute UTI Code(s): N39.0 - Urinary tract infection, site not specified Status: Acute (11) Colitis Code(s): K52.9 - Noninfective gastroenteritis and colitis, unspecified Status : Acute - Assessment and Plan Plan: NEUROLOGY Continue monitor neurological function, Restoril as needed for insomnia Morphine as needed for pain PULMONOLOGY Acute hypoxic respiratory failure secondary to pulmonary edema, pleural effusion L>R Pleural effusion Continue BiPAP 15//50, continue wean O2 to maintain O2 sats greater than 92% Patient will require thoracentesis diagnostic and therapeutic Duo nebs every 6 hours and every 2 hours as needed CARDIOLOGY Shock Probable Acute coronary syndrome CHF exacerbation Cardiomyopathy Elevated troponin Elevated BNP Levophed as needed for blood pressure management maintain map greater than 65 Cardiology consulted for probable acute coronary syndrome. May need cardiac catheterization 2D Echo EF 30-35% 03/07. Previous echo prior to CHOP regimen showed normal ejection fraction Cardiomyopathy may be secondary to Adriamycin toxicity, but need to rule out coronary artery disease Troponin have plateaued with troponin at 0.21 Serial EKGs were performed and reviewed by myself which did indicate acute changes with Q waves in inferior leads Unable to use beta maurizio, SHAHBAZ inhibitor, nitroglycerin due to hypotension Lipid panel shows rather significant abnormalities with triglycerides greater than 520, unable to calculate LDL. Statin has not been continued due to the patient have an elevated liver enzymes and hyperbilirubinemia GASTROENTEROLOGY Colitis, ? ischemic GI bleed External hemorrhoid GI is following the patient and has undergone upper and lower endoscopies which does indicate colitis, distal esophagitis, external hemorrhoids MRA of the abdomen was performed which did show 50% stenosis of the SMA Continue cardiac diet once clinically stable RENAL Metabolic acidosis Unclear etiology, could be secondary to poor perfusion Status post 1 amp sodium bicarb Continue monitor renal functions, bicarb, anion gap INFECTIOUS DISEASE Colitis, appears to be not infective C. difficile, enteric pathogens, Giardia, stool for WBCs all appear to be negative Urine culture shows 50 - 100,000 of mixed tierney probable contaminants Patient currently on Cipro/Flagyl, consider discontinuing antibiotics secondary to no infectious process has been identified ENDOCRINOLOGY Continue Accu-Cheks with sliding scale insulin TSH 6.89 Check free T4/free T3 HEMATOLOGY History of lymphoma Pancytopenia GI bleed with bleeding external hemorrhoid Status post transfusion 1 unit of packed red blood cells, hemoglobin has remained stable Hematology is following the patient PROPHYLAXIS DVT prevention with sequential compression devices, avoid chemical prophylaxis secondary to GI bleed GI protection with Protonix daily LINES Mediport has been accessed CODE STATUS Full code CRITICAL CARE TIME: 75 minutes excluding procedures ADDENDUM: I have seen and examined the patient independently and agreed to Jay CAPELLAN 'S history physical and assessment and plan. In short patient is a 58-year- old female with multiple comorbidities and non-Hodgkin's lymphoma who underwent CHOP regimen last cycle about 18 months ago. She presented with nausea vomiting and diarrhea secondary to colitis involving the transverse colon. Most of the workup had been essentially negative. 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 Her previous echo was normal echo done today shows an EF of 30-35%. This could be secondary to coronary artery disease or Adriamycin toxicity. Initially patient was fluid resuscitated hypovolemia and hypotension improved and patient was transferred out of the ICU. Yesterday night patient was moved back to the ICU for shortness of breath chest pain and hypotension. A CT angiogram did not show any evidence of PE, but showed bilateral pulmonary edema and pleural effusion. Critical emergency medicine was consulted today around noontime for worsening metabolic acidosis hypotension and worsening respiratory failure. Because of elevated troponin and suspicion of ACS cardiology was consulted and Dr. Pickett requested transfer to [facility] for possible cardiac catheterization. I evaluated the patient in the ICU at [facility]. She appears to be in moderate distress. Bedside ultrasound showed moderate sized left pleural effusion. Because of shortness of breath a did a thoracentesis and removed 450 mL pleural fluid. Post procedure chest x-ray shows pulmonary edema and bilateral effusions. Additional problem list CHF exacerbation Probable ACS COPD with exacerbation Pulmonary edema and pleural effusion Metabolic acidosis PLAN: -Start thoracentesis performed fluid studies ordered -IV Lasix 40 mg 1 and 20 every 12 with IV albumin -Potassium replacement -IV Solu-Medrol 60 mg every 12 -DuoNeb every 6 hours scheduled and as needed, Symbicort started -Send fluid culture blood culture -Start Zosyn for broad-spectrum antibiotics DC ciprofloxacin -We will repeat CT abdomen pelvis without contrast to evaluate for worsening colitis -Consider milrinone if not improving Additional CCT excluding procedures and in addition to above time is 35 MIN. Patient is critically ill with severe CHF exacerbation and hypotension. She is at risk of acute decompensation and requiring endotracheal intubation Code Status: Full code Discussed Condition With: Dr. Stahl, Dr. Thompson, Dr. Pickett, nursing staff, charge nurse
[2018-03-07] MEDS: Morphine Inj 4 MG/ML Vial IV.PUSH PRN (14:13)
--- NOTE | 2018-03-07 16:07 | P.PCN ---
Date of procedure: 03/07/18 Pre-op diagnosis: Moderate Left pl effusion, SOB Post-op diagnosis: same Procedure: CONSENT: Consent was obtained from patient prior to the procedure. Indications, risks, and benefits were explained at length. PROCEDURE SUMMARY: A time out was performed and the chest x-ray was reviewed, the appropriate side (left) was confirmed and marked. I wore a surgical cap, mask with protective eyewear, sterile gown and sterile gloves throughout the procedure. The patient was prepped and draped in a sterile manner using chlorhexidine scrub after the appropriate level was percussed and confirmed by ultrasound. 1% lidocaine was used to anesthesize the skin, subcutaneous tissue, superior aspect of the rib periosteum and parietal pleura. A finder needle was then introduced over the superior aspect of the rib to locate the pleural fluid; straw colored fluid was aspirated. A 10-blade scalpel was used to ashley the skin at the insertion site. The thoracentesis angiocath was then introduced through the skin incision into the pleural space using negative aspiration pressure and pleural fluid was aspirated. The thoracentesis catheter was then threaded without difficulty, and needle and syringe removed. Catheter was connected to a Vacutainer and total 450 ml of straw colored fluid was removed without difficulty. The catheter was then removed. No immediate complications were noted during the procedure. A post -procedure chest x-ray is pending at the time of this note. The fluid will be sent for studies. Anesthesia: local Surgeon: Nate Thompson Estimated blood loss (mL): 2 Condition: critical Disposition: ICU
--- NOTE | 2018-03-07 16:39 | XR ---
EXAM DATE: 03/07/2018 4:37 PM EDT AGE/SEX: 58 years / Female INDICATIONS: Post left thoracentesis. CLINICAL DATA: This is the patient's initial encounter. Patient reports that signs and symptoms have been present for 1 day and indicates a pain score of 0/10. MEDICAL/SURGICAL HISTORY: None. . [id number]. COMPARISON: [facility], CHEST 1V SINGLE AP, 03/07/2018. . FINDINGS: There is increased interstitial markings bilaterally along with some increasing effusions consistent with increased pulmonary edema. The heart size is enlarged but stable. There is a right-sided central line in place. There is no pneumothorax. The bony structures are stable. CONCLUSION: Worsening pulmonary edema. Electronically signed by: Adrian Warner MD 03/07/2018 4:38 PM EDT
[2018-03-07] MEDS: MethylPREDNISolone Sod Succinate Inj 125 MG/2 ML Vial IV.PUSH SCH (16:40)
[2018-03-07 17:08] LABS: Total Protein,Pleural Fluid 1.1 gm/dL
[2018-03-07] MEDS: Albumin Human 25% Inj 100 ML IV.SIG SCH (17:23)
[2018-03-07] MEDS: Piperacil/Tazo 3.375 GM Premix 50 ML IV.SIG SCH (17:23)
[2018-03-07 18:12] LABS: Lymphocytes,Pleural Fluid 10 %; Mesothelial,Pleural Fluid 4 %; Monocytes,Pleural Fluid 10 %; Neutrophils,Pleural Fluid 72 %
[2018-03-07 18:18] LABS: RBC,Pleural Fluid 162 /mm3 (0-0)
--- NOTE | 2018-03-07 19:25 | CT ---
EXAM DATE: 03/07/2018 7:11 PM EDT AGE/SEX: 58 years / Female INDICATIONS: Abdominal pain and worsening colitis. CLINICAL DATA: This is the patient's initial encounter. Patient reports that signs and symptoms have been present for 4 - 6 days and indicates a pain score of 7/10. MEDICAL/SURGICAL HISTORY: Diabetes. Cholecystectomy. Appendectomy. Hysterectomy. RADIATION DOSE: 6.62 CTDI (mGy) COMPARISON: [facility], CT ABDOMEN & PELVIS W CONTRAST, 03/02/2018. . TECHNIQUE: Multiple contiguous axial images were obtained through the abdomen. Images were obtained using multiple row detector helical technique. Using automated exposure control and adjustment of the mA and/or kV according to patient size, radiation dose was kept as low as reasonably achievable to o btain optimal diagnostic quality images. DICOM format image data is available electronically for rev iew and comparison. FINDINGS: Lower Lungs: There is increased density at the posterior aspect of the lower lungs bilaterally. There are bilateral pleural effusions being moderate on the right and mild on the left. Liver: The liver appears enlarged measuring up to 23 cm in length.. There is decreased density seen i n the liver. There is increased density seen within the gallbladder. This could be secondary to milk of calcium or potentially representing vicarious excretion of contrast from prior contrast administra tion. The gallbladder is distended. Spleen: The spleen is enlarged measuring 13 cm in length. Focal splenic lesion is not seen. Pancreas: Unremarkable without mass or calcification. Kidneys: Normal in size and shape. No evidence of mass or hydronephrosis. There is a 3 mm nonobstruc ting stone seen in the right mid collecting system. There is a 2 mm nonobstructing stone seen in the superior left collecting system. There is a cortical calcification seen in the anterior left upper ki dney. No hydronephrosis is seen. There is minimal perinephric stranding. Adrenal Glands: Unremarkable. Aorta: Atherosclerotic calcifications are seen. No aneurysm is present. Bowel/Mesentery: The bowel loops are grossly unremarkable. The cecum and sigmoid colon have a normal configuration. Respiratory be fat within the ascending colon wall. There is mild amount of ascites s een. Abdominal Wall: Intact. Retroperitoneum: No evidence of adenopathy in the retrocrural, para-aortic, or deep pelvic regions. Bladder: There is a Damon catheter in the urinary bladder. Reproductive Organs: The patient is status post hysterectomy. Inguinal: The inguinal region is unremarkable without evidence of adenopathy. Bony Structures: There is degenerative change in the lumbar spine. There appears to be hypertrophic change at the anterior superior left acetabular region. There is edema seen in the superficial soft t issues likely from anasarca. CONCLUSION: 1. Bilateral pleural effusions being moderate on the right and mild on the left with accompanying at electasis or consolidation. 2. Hepatosplenomegaly. There is hepatic steatosis. 3. Small nonobstructing renal stones. 4. Suspected vicarious excretion of contrast within the gallbladder versus milk of calcium. 5. The prominence of the wall of the ascending colon and proximal transverse colon is thought to be secondary to fat deposition. Significant surrounding inflammatory change is not seen. 6. Diffuse subcutaneous edema. Electronically signed by: Jay Rausch MD 03/07/2018 7:24 PM EDT
[2018-03-07 20:54] LABS: Bacteria,Urine Occasional /hpf; Bilirubin,Urine Negative (Negative); Clarity,Urine Hazy (Clear); Color,Urine Yellow (Yellw/Straw); Glucose,Urine (UA) Negative (Negative); Hyaline Casts,Urine 1 /lpf (0-3); Leukocyte Esterase,Urine Negative (Negative); Mucus,Urine Few /lpf (Occasional); Nitrite,Urine Negative (Negative)
[2018-03-07 22:10] LABS: Free T4 (Free Thyroxine) 1.32 ng/dL (0.76-1.46); Triiodothyronine (T3) Free 1.43 pg/mL (2.18-3.98)
[2018-03-07] MEDS: Budesonide-Formoterol 160/4.5 MCG 6 GM Inhaler INH SCH (23:58)
[2018-03-08] MEDS: Hydrocortisone/Pramoxine Foam 10 GM Can RECTAL SCH ×3 (00:01→17:07)
[2018-03-08] MEDS: Diphenoxylate/Atropine 2.5/0.025 MG Tablet PO SCH ×5 (00:01→23:05)
[2018-03-08] MEDS: Piperacil/Tazo 3.375 GM Premix 50 ML IV.SIG SCH ×5 (00:04→23:04)
[2018-03-08] MEDS: MethylPREDNISolone Sod Succinate Inj 125 MG/2 ML Vial IV.PUSH SCH ×2 (04:24→16:15)
[2018-03-08] MEDS: Albumin Human 25% Inj 100 ML IV.SIG SCH ×2 (04:24→16:14)
--- NOTE | 2018-03-08 05:56 | XR ---
EXAM DATE: 03/08/2018 5:44 AM EDT AGE/SEX: 58 years / Female INDICATIONS: Shortness of breath. CLINICAL DATA: This is the patient's subsequent encounter. Patient reports that signs and symptoms h ave been present for 4 - 6 days and indicates a pain score of Nonresponsive. MEDICAL/SURGICAL HISTORY: . Hypertension. Diabetes mellitus type II. Lymphoma. . Infusaport COMPARISON: [facility] [place] 1[place] S[place] AP, [place]/07/2018. . FINDINGS: A single AP view of the chest demonstrates mild cardiomegaly. Interstitial prominence throughout the lungs bilaterally with bibasilar intra-alveolar opacities. Tiny effusions. Right-sided Port-A-Cath. A ppearance is somewhat improved from the prior study. CONCLUSION: Improving pulmonary edema. Electronically signed by: Watson Mayes MD 03/08/2018 5:55 AM EDT
[2018-03-08 06:10] LABS: Baso % (Auto) 0.1 % (0.0-2.0); Hematocrit 25.4 % (35.0-46.0); Hemoglobin 8.7 gm/dL (11.6-15.3); Lymph # (Auto) 0.4 th/mm3 (1.0-4.8); Lymph % (Auto) 5.8 % (9.0-44.0); Mean Corpuscular HGB Conc 34.1 % (32.0-36.0); Mean Corpuscular Hemoglobin 36.9 pg (27.0-34.0); Mean Corpuscular Volume 108.2 fL (80.0-100.0); Mono # (Auto) 0.8 th/mm3 (0.0-0.9); Neut # (Auto) 4.9 th/mm3 (1.8-7.7); Neut % (Auto) 81.1 % (16.0-70.0); Platelet Count 85 th/mm3 (150-450); Red Blood Count 2.35 mil/mm3 (4.00-5.30); Red Cell Distribution Width 15.3 % (11.6-17.2)
[2018-03-08 06:57] LABS: Albumin 3.1 g/dL (3.4-5.0); Anion Gap 13 meq/L (5-15); Aspartate Aminotransferase 33 U/L (15-37); Blood Urea Nitrogen 7 mg/dL (7-18); Calcium 7.5 mg/dL (8.5-10.1); Carbon Dioxide 24.3 meq/L (21.0-32.0); Chloride 106 meq/L (98-107); Glomerular Filtration Rate 79 mL/min (>89); Glucose,Random 146 mg/dL (74-106); Magnesium 1.8 mg/dL (1.5-2.5); Potassium 3.4 meq/L (3.5-5.1); Sodium 143 meq/L (136-145)
[2018-03-08 07:03] LABS: Alanine Aminotransferase 40 U/L (10-53); Alkaline Phosphatase 106 U/L (45-117); Total Protein 6.1 g/dL (6.4-8.2)
--- NOTE | 2018-03-08 07:54 | P.CONCA ---
History of Present Illness Primary Care Provider: Jay Mcnair Chief Complaint: Abdominal pain, nausea and vomiting History of Present Illness: 58-year-old female with no prior cardiac history being seen for new onset cardiomyopathy. The patient presented 03/02 with nausea, vomiting, diarrhea. She was found to have anemia and GI bleeding, status post clipping of bleeding hemorrhoid, status post transfusion 1 unit PRBCs 03/04. Patient had respiratory distress 03/07, found to have moderate pleural effusions and pulmonary edema. She had associated chest pain at that time. EKG shows possible new inferoseptal Q waves compared to admission. Echocardiogram shows new cardiomyopathy with EF 3035%. Patient had thoracentesis yesterday with 500 mL removed. She is on Lasix 20 mg IV twice daily and put out 3700 mL overnight. She reports her breathing is much better today and chest x-ray today showing improved pulmonary edema. She has had constant chest discomfort since receiving breathing treatment yesterday. SBP is currently 80 on Levophed. Review of Systems All other systems reviewed negative except as stated in HPI PMFSH - History History Provided By: Patient, Medical Record - Medical History Medical History: Medical History (Last Reviewed 03/07/18 @ 14:09 by TIMI Carrera) Diabetes High cholesterol History of appendicitis History of benign tumor of tongue History of chemotherapy History of hysterectomy History of lymphoma - Surgical History Surgical History: Surgical History (Last Reviewed 03/07/18 @ 14:09 by TIMI Carrera) History of appendectomy History of arthroplasty of knee History of partial hysterectomy History of tonsillectomy History of tubal ligation - Family History Family History: Family History (Last Reviewed 03/07/18 @ 14:09 by TIMI Carrera) Other No pertinent family history - Tobacco History Second Hand Smoke Exposure: Yes Tobacco Use In Past 30 Days: Yes Smoking Status: Current every day smoker Tobacco Type: Cigarettes - Alcohol History How Often Do You Have a Drink Containing Alcohol: 2 to 4 times a month - Substance Use History Substance History: No History of Abuse - Travel History Recent Travel in the [place] Within the Last 8 Weeks: No Recent Travel Out of the Country Within the Last 8 Weeks: No - Immunization History Tetanus Immunization: Unsure Hx Influenza Vaccine This Season: No Medications and Allergies Active Medications: Active Medications Acetaminophen (Tylenol) 650 mg PO Q4H PRN PRN Reason: Temp > 100.4 Albuterol (Duoneb Neb (Stewart)) 1 ampul NEB Q6HR NEB [facility] Last Admin: 03/08/18 06:12 Dose: Not Given Albuterol (Duoneb Neb (Prn)) 1 ampul NEB Q2HR NEB PRN PRN Reason: SHORTNESS OF BREATH Budesonide/Formoterol Fumarate (Symbicort 160/4.5 Mcg Inh) 2 puff INH BID [facility] Last Admin: 03/07/18 23:58 Dose: 2 puff Cholestyramine Resin (Questran 4 Gm Pkt) 4 gm PO BID [facility] Last Admin: 03/07/18 20:06 Dose: Not Given Dextrose (D50w Vial) 50 ml IV.PUSH UNSCH PRN PRN Reason: PER HYPOGLYCEMIA PROTOCOL Diphenoxylate HCl/Atropine (Lomotil) 1 tab PO Q6HR [facility] Last Admin: 03/08/18 06:38 Dose: Not Given Furosemide (Lasix Inj) 20 mg IV.PUSH BID@0900,1800 [facility] Last Admin: 03/07/18 18:15 Dose: 20 mg Glucagon (Glucagon Inj) 1 mg OTHER PRN PRN PRN Reason: for Hypoglycemia Protocol Sodium Chloride (Ns Inj) 1,000 mls @ 0 mls/hr IV.SIG BOLUS [facility] Last Infusion: 03/03/18 02:08 Dose: Infused Sodium Chloride (Ns Inj) 1,000 mls @ 0 mls/hr IV.SIG BOLUS [facility] Last Infusion: 03/03/18 14:43 Dose: Infused Metronidazole/Sodium Chloride (Flagyl 500 Mg Inj) 100 mls @ 100 mls/hr IV.SIG Q8H [facility] Last Infusion: 03/08/18 04:18 Dose: Infused Magnesium Sulfate Inj 2 gm/ (Sodium Chloride) 100 mls @ 50 mls/hr IV.SIG UNSCH PRN PRN Reason: For Magnesium 1.2 - 1.6 mg/dL Last Infusion: 03/04/18 11:00 Dose: Infused Potassium Chloride (Kcl 20 Meq Premix Inj) 20 meq in 100 mls @ 50 mls/hr IV.SIG Q2H PRN PRN Reason: For Potassium 3.3 - 3.5 mEq/L Potassium Chloride (Kcl 40 Meq Premix Inj) 40 meq in 100 mls @ 25 mls/hr IV.SIG UNSCH PRN PRN Reason: For Potassium 3.3 - 3.5 mEq/L Potassium Chloride (Kcl 20 Meq Premix Inj) 20 meq in 100 mls @ 50 mls/hr IV.SIG Q2H PRN PRN Reason: For Potassium 2.8 - 3.2 mEq/L Last Infusion: 03/06/18 13:22 Dose: Infused Potassium Phosphate 30 mmol/ (Sodium Chloride) 260 mls @ 42 mls/hr IV.SIG UNSCH PRN PRN Reason: SEE LABEL COMMENTS Sodium Phosphate 30 mmol/ (Sodium Chloride) 260 mls @ 42 mls/hr IV.SIG UNSCH PRN PRN Reason: For Phosphorus < 2.5 mg/dL Magnesium Sulfate Inj 4 gm/ (Sodium Chloride) 100 mls @ 50 mls/hr IV.SIG UNSCH PRN PRN Reason: For Magnesium 0.9 - 1.1 mg/dL Last Infusion: 03/07/18 03:38 Dose: Infused Potassium Chloride (Kcl 40 Meq Premix Inj) 40 meq in 100 mls @ 25 mls/hr IV.SIG Q2H PRN PRN Reason: For Potassium 2.8 - 3.2 mEq/L Sodium Chloride (Ns Inj) 1,000 mls @ 0 mls/hr IV.SIG BOLUS [facility] Last Infusion: 03/04/18 07:00 Dose: Infused Sodium Chloride (Ns Inj) 1,000 mls @ 0 mls/hr IV.SIG BOLUS [facility] Norepinephrine Bitartrate (Levophed-Dextrose 4 Mg/250 Ml Drip) 4 mg in 250 mls @ 7.5 mls/hr IV.SIG TITRATE PRN; Protocol PRN Reason: Per Protocol Last Titration: 03/08/18 00:45 Dose: 4 mcg/min, 15 mls/hr Piperacillin/Tazobactam/Dextrose (Zosyn 3.375 Gm Premix) 50 mls @ 100 mls/hr IV.SIG Q6H [facility] Last Admin: 03/08/18 06:40 Dose: 100 mls/hr Albumin Human (Flexbumin 25% Inj) 100 mls @ 60 mls/hr IV.SIG Q12H [facility] Last Infusion: 03/08/18 06:40 Dose: Infused Insulin Aspart (Novolog Insulin Correctional Sugar Inj) 0 unit SQ ACHS [facility]; Protocol Last Admin: 03/07/18 20:11 Dose: Not Given Lactobacillus Acidophilus (Lactinex) 1 tab PO TID [facility] Last Admin: 03/07/18 17:26 Dose: Not Given Magnesium Oxide (Mag-Ox) 800 mg PO UNSCH PRN PRN Reason: For Magnesium 1.2 - 1.6 mg/dL Methylprednisolone Sodium Succinate (Solumedrol Inj) 60 mg IV.PUSH Q12H [facility] Last Admin: 03/08/18 04:24 Dose: 60 mg Morphine Sulfate (Morphine Inj) 2 mg IV.PUSH Q4H PRN PRN Reason: PAIN SCALE 1 TO 10 Last Admin: 03/07/18 14:13 Dose: 2 mg Pantoprazole Sodium (Protonix) 40 mg PO DAILY [facility] Last Admin: 03/07/18 16:40 Dose: 40 mg Potassium Bicarb/Potassium Chloride (K-Lyte Cl Eff) 50 meq PO UNSCH PRN PRN Reason: For Potassium 3.3 - 3.5 mEq/L Potassium Chloride (K-Dur) 20 meq PO BID [facility] Last Admin: 03/07/18 20:02 Dose: 20 meq Potassium Phosphate (K-Phos Original) 2,000 mg PO Q4H PRN PRN Reason: Phosphorus Less Than 2.5 mg/dL Last Admin: 03/03/18 14:17 Dose: 2,000 mg Potassium Phosphate (K-Phos Original) 2,000 mg PO UNSCH PRN PRN Reason: SEE LABEL COMMENTS Promethazine HCl (Phenergan) 25 mg PO Q4H PRN PRN Reason: NAUSEA OR VOMITING Last Admin: 03/08/18 02:24 Dose: 25 mg Sodium Chloride (Ns Flush) 2 ml IV.FLUSH PRN PRN PRN Reason: FLUSH AFTER USING IV ACCESS Last Admin: 03/07/18 01:40 Dose: 2 ml Temazepam (Restoril) 15 mg PO HS PRN PRN Reason: Insomnia Terbutaline Sulfate (Brethine Inj) 1 mg SQ UNSCH PRN PRN Reason: For Extravasation Trimethobenzamide HCl (Tigan Ing) 200 mg IM Q6H PRN PRN Reason: NAUSEA OR VOMITING Last Admin: 03/06/18 09:41 Dose: 200 mg Allergies Allergy/AdvReac Type Severity Reaction Status Date / Time No Known Allergies Allergy Unverified 03/02/18 09:30 Home Medications Medication Instructions Recorded Confirmed Type atorvastatin 80 mg PO HS 03/02/18 03/03/18 History fenofibrate 160 mg PO HS 03/02/18 03/03/18 History metformin 1,000 mg PO HS 03/02/18 03/03/18 History omeprazole 40 mg PO DAILY 03/02/18 03/03/18 History ondansetron [Zofran ODT] 8 mg PO TID PRN 03/02/18 03/03/18 History Women's One Daily 03/03/18 History acetaminophen [Tylenol Extra 500 mg PO DAILY 03/03/18 03/03/18 History Strength] aspirin [Xavier Aspirin] 162 mg PO DAILY 03/03/18 03/03/18 History losartan 25 mg PO DAILY 03/03/18 03/03/18 History potassium gluconate 550 mg PO DAILY 03/03/18 03/03/18 History Exam Vital signs: Vital Signs 03/07/18 08:00 03/07/18 08:14 03/07/18 08:38 Temperature 98.4 F Pulse Rate 104 H 106 H 102 H Respiratory Rate 19 32 H 25 H Blood Pressure 91/60 L 93/60 L 90/60 L Pulse Oximetry 96 97 97 03/07/18 08:42 03/07/18 09:00 03/07/18 09:38 Temperature Pulse Rate 98 H 104 H Respiratory Rate 28 H 28 H Blood Pressure 81/59 L 88/52 L Pulse Oximetry 95 99 95 03/07/18 10:00 03/07/18 10:52 03/07/18 11:00 Temperature Pulse Rate 102 H 120 H 118 H Respiratory Rate 25 H 32 H Blood Pressure 100/61 80/46 L Pulse Oximetry 96 03/07/18 12:00 03/07/18 12:29 03/07/18 12:30 Temperature Pulse Rate 102 H 114 H 116 H Respiratory Rate 24 26 H Blood Pressure 102/65 89/70 L Pulse Oximetry 94 L 95 03/07/18 12:45 03/07/18 12:54 03/07/18 13:00 Temperature Pulse Rate 112 H 112 H Respiratory Rate 24 Blood Pressure 92/54 L 90/59 L Pulse Oximetry 97 98 98 03/07/18 13:15 03/07/18 13:30 03/07/18 13:45 Temperature Pulse Rate 106 H 102 H 104 H Respiratory Rate 16 12 13 Blood Pressure 87/58 L 90/59 L 92/62 L Pulse Oximetry 99 100 100 03/07/18 14:00 03/07/18 14:15 03/07/18 14:24 Temperature Pulse Rate 104 H 108 H 104 H Respiratory Rate 23 19 Blood Pressure 98/59 L 94/66 L 97/58 L Pulse Oximetry 100 95 03/07/18 16:00 03/07/18 16:21 03/07/18 17:11 Temperature Pulse Rate 110 H 110 H Respiratory Rate 24 Blood Pressure Pulse Oximetry 97 03/07/18 17:12 03/07/18 17:14 03/07/18 17:16 Temperature Pulse Rate 109 H 109 H 110 H Respiratory Rate Blood Pressure 97/58 L 97/57 L 97/59 L Pulse Oximetry 98 97 98 03/07/18 17:19 03/07/18 17:20 03/07/18 18:00 Temperature Pulse Rate 117 H 119 H 105 H Respiratory Rate Blood Pressure 100/59 L 114/61 Pulse Oximetry 97 95 93 L 03/07/18 18:15 03/07/18 18:30 03/07/18 20:00 Temperature 98.8 F Pulse Rate 121 H 113 H 103 H Respiratory Rate 25 H 22 26 H Blood Pressure 128/57 L 96/52 L 88/51 L Pulse Oximetry 96 95 96 03/07/18 20:25 03/07/18 20:26 03/07/18 20:30 Temperature Pulse Rate 107 H 110 H Respiratory Rate 27 H Blood Pressure 92/57 L Pulse Oximetry 97 96 03/07/18 21:00 03/07/18 21:30 03/07/18 22:00 Temperature Pulse Rate 105 H 104 H 97 H Respiratory Rate 35 H 29 H 30 H Blood Pressure 81/53 L 86/50 L 79/48 L Pulse Oximetry 95 96 95 03/07/18 22:30 03/07/18 23:00 03/07/18 23:30 Temperature 99.1 F Pulse Rate 96 H 104 H 102 H Respiratory Rate 29 H 26 H 25 H Blood Pressure 82/50 L 92/52 L 87/55 L Pulse Oximetry 93 L 93 L 95 03/08/18 00:00 03/08/18 00:30 03/08/18 01:00 Temperature Pulse Rate 107 H 96 H 97 H Respiratory Rate 23 29 H 34 H Blood Pressure 92/54 L 85/53 L 82/52 L Pulse Oximetry 94 L 96 92 L 03/08/18 01:30 03/08/18 02:00 03/08/18 03:00 Temperature Pulse Rate 90 89 101 H Respiratory Rate 29 H 27 H 75 H Blood Pressure 78/49 L 84/54 L 101/56 L Pulse Oximetry 95 94 L 93 L 03/08/18 04:00 03/08/18 05:00 03/08/18 05:58 Temperature Pulse Rate 90 92 H 90 Respiratory Rate 31 H 28 H Blood Pressure 90/54 L 91/54 L Pulse Oximetry 95 94 L 03/08/18 06:00 Temperature Pulse Rate 90 Respiratory Rate 53 H Blood Pressure 93/51 L Pulse Oximetry 96 Intake & Output 03/07/18 03/08/18 03/08/18 18:59 06:59 18:59 Intake Total 1120 / 1120 450 / 450 Output Total 2200 / 2200 1500 / 1500 Balance -1080 / -1080 -1050 / -1050 Weight 132 lb 7.965 oz Intake: IV 400 / 400 450 / 450 KCl Inj 20 MEQ In LR 1000 mL 0 / 0 Inj 1,000 ML @ 100 mls/hr IV. CONT .Q10H6M [facility] Rx#:[id number] Sodium Bicarbonate 8.4% Inj 150 0 / 0 MEQ In D5W Inj 850 ML @ 50 mls /hr IV.CONT .Q20H [facility] Rx#: [id number] Flexbumin 25% Inj 50 ML @ 60 50 / 50 mls/hr IV.SIG ONCE ONE Rx#: [id number] Flexbumin 25% Inj 100 ML @ 60 200 / 200 mls/hr IV.SIG Q12H [facility] Rx#: [id number] Cipro 400 MG/200 ML Inj 400 mg 200 / 200 In 200 ml @ 200 mls/hr IV.SIG Q8H [facility] Rx#:[id number] Zosyn 3.375 GM Premix 50 ML @ 50 / 50 50 / 50 100 mls/hr IV.SIG Q6H [facility] Rx#: [id number] Flagyl 500 MG Inj 100 ML @ 100 100 / 100 200 / 200 mls/hr IV.SIG Q8H [facility] Rx#: [id number] Oral 720 / 720 Output: Urine 1200 / 1200 Pleural Fluid 500 / 500 Urine Amount (Catheter) 500 / 500 1500 / 1500 Indwelling Urethral Catheter 500 / 500 1500 / 1500 Other: Date of Last Bowel Movement 03/07/18 03/07/18 Narrative: GENERAL: Well-developed well-nourished. In no acute distress. NECK: No carotid bruits. No JVD. CARDIOVASCULAR: Regular rate and rhythm. No murmur appreciated. RESPIRATORY: No accessory muscle use. Clear to auscultation. Breath sounds equal bilaterally. MUSCULOSKELETAL: No clubbing or cyanosis. No edema. NEUROLOGICAL: Awake and alert. Normal speech. Results 03/08/18 05:30 03/08/18 05:30 Cardiac Enzymes 03/07/18 03/07/18 03/07/18 Range/Units 07:13 07:13 13:17 AST 63 H (15-37) U/L CK-MB (CK-2) 5.1 H 5.0 H (0.5-3.6) ng/mL Troponin I 0.21 H 0.21 H (0.02-0.05) ng/mL 03/08/18 Range/Units 05:30 AST 33 (15-37) U/L CK-MB (CK-2) (0.5-3.6) ng/mL Troponin I (0.02-0.05) ng/mL CBC 03/07/18 03/08/18 Range/Units 07:13 05:30 WBC 5.6 6.0 (4.0-11.0) th/mm3 RBC 2.76 L 2.35 L (4.00-5.30) mil/mm3 Hgb 9.9 L 8.7 L (11.6-15.3) gm/dL Hct 29.6 L 25.4 L (35.0-46.0) % Plt Count 98 L 85 L (150-450) th/mm3 Neut # (Auto) 4.8 4.9 (1.8-7.7) th/mm3 Lymph # (Auto) 0.4 L 0.4 L (1.0-4.8) th/mm3 Ware # (Auto) 0.4 0.8 (0.0-0.9) th/mm3 Eos # (Auto) 0.0 0.0 (0.0-0.4) th/mm3 Baso # (Auto) 0.0 0.0 (0.0-0.2) th/mm3 Comprehensive Metabolic Panel 03/07/18 03/08/18 Range/Units 07:13 05:30 Sodium 140 143 (136-145) meq/L Potassium 3.8 D 3.4 L (3.5-5.1) meq/L Chloride 108 H 106 (98-107) meq/L Carbon Dioxide 19.4 L 24.3 (21.0-32.0) meq/L BUN 3 L 7 (7-18) mg/dL Creatinine 0.49 L 0.75 (0.50-1.00) mg/dL Calcium 7.7 L 7.5 L (8.5-10.1) mg/dL AST 63 H 33 (15-37) U/L ALT 58 H 40 (10-53) U/L Alkaline Phosphatase 143 H 106 (45-117) U/L Total Protein 5.9 L D 6.1 L (6.4-8.2) g/dL Albumin 2.7 L D 3.1 L (3.4-5.0) g/dL Intake and Output 03/07/18 03/08/18 03/08/18 22:59 06:59 14:59 Intake Total 550 / 550 250 / 250 Output Total 1000 / 1000 1500 / 1500 Balance -450 / -450 -1250 / -1250 Intake: IV 550 / 550 250 / 250 KCl Inj 20 MEQ In LR 1000 mL 0 / 0 Inj 1,000 ML @ 100 mls/hr IV. CONT .Q10H6M [facility] Rx#:[id number] Flexbumin 25% Inj 100 ML @ 60 100 / 100 100 / 100 mls/hr IV.SIG Q12H [facility] Rx#: [id number] Cipro 400 MG/200 ML Inj 400 mg 200 / 200 In 200 ml @ 200 mls/hr IV.SIG Q8H [facility] Rx#:[id number] Zosyn 3.375 GM Premix 50 ML @ 50 / 50 50 / 50 100 mls/hr IV.SIG Q6H [facility] Rx#: [id number] Flagyl 500 MG Inj 100 ML @ 100 200 / 200 100 / 100 mls/hr IV.SIG Q8H [facility] Rx#: [id number] Output: Pleural Fluid 500 / 500 Urine Amount (Catheter) 500 / 500 1500 / 1500 Indwelling Urethral Catheter 500 / 500 1500 / 1500 Other: Date of Last Bowel Movement 08/30/18 08/30/18 Weight 132 lb 7.965 oz Assessment and Plan - Plan 58-year-old female with no prior cardiac history being seen for new onset cardiomyopathy. The patient presented 03/02 with nausea, vomiting, diarrhea. She was found to have anemia and GI bleeding, status post clipping of bleeding hemorrhoid, status post transfusion 1 unit PRBCs 03/04. Patient had respiratory distress 03/07, found to have moderate pleural effusions and pulmonary edema. She had associated chest pain at that time. EKG shows possible new inferoseptal Q waves compared to admission. Echocardiogram shows new cardiomyopathy with EF 3035%. Patient had thoracentesis yesterday with 500 mL removed. She is on Lasix 20 mg IV twice daily and put out 3700 mL overnight. She reports her breathing is much better today and chest x-ray showing improved pulmonary edema. She has had constant chest discomfort since receiving breathing treatment yesterday. SBP is currently 80 on Levophed. New-onset cardiomyopathy: Unclear etiology. Continue diuresis as tolerated for CHF. Unable to do ACEI/BB with hypotension. Consider ischemic workup after recovery, not currently with hypotension and anemia. Discussed Condition With: Patient with RN at bedside, Dr. Pickett
[2018-03-08] MEDS: Lactobacillus Acidophilus/L. Spores Tablet PO SCH ×3 (08:32→17:15)
[2018-03-08] MEDS: Insulin NovoLOG Aspart Correctional Sugar Inj SQ SCH ×4 (08:33→20:36)
--- NOTE | 2018-03-08 09:45 | ECG ---
Date Performed: 03/07/2018 Time Performed: 15:54:02 PTAGE: 58 years EKG: Sinus tachycardia. Left axis deviation Inferior infarct - age undetermined Anteroseptal inf arct - age undetermined Lateral T wave changes may be due to myocardial ischemia Generalized low QRS voltages Since the previous tracing, no significant change noted Abnormal ECG PREVIOUS TRACING : 03/07/2018 13.37 DOCTOR: Manoj Ann Interpretating Date/Time 03/08/2018 09:43:59
--- NOTE | 2018-03-08 09:45 | ECG ---
Date Performed: 03/07/2018 Time Performed: 13:37:53 PTAGE: 58 years EKG: SINUS TACHYCARDIA LOW QRS VOLTAGE INFERIOR MYOCARDIAL INFARCTION ANTEROSEPTAL MYOCARDIAL IN FARCTION MODERATE T-WAVE ABNORMALITY, CONSIDER LATERAL ISCHEMIA ABNORMAL ECG Since the PREVIOUS TRACING , no significant change noted PREVIOUS TRACIN03/07/2018 04.37 DOCTOR: Manoj Ann Interpretating Date/Time 03/08/2018 09:44:10
--- NOTE | 2018-03-08 11:14 | P.PNGI ---
Subjective Interval history: Pt resting in bed. Denies any nausea, vomiting, abdominal pain. States the BMs are becoming more formed, had gas this morning and small BM. Pt reports overall her GI symptoms seem to be improving. She was transferred from [place] to [facility] last night, now with pleural effusions S/P thoracentesis and elevated troponin and being seen by cardiology. <StephanieRubi - Last Filed: 03/08/18 10:57> Physical Exam Vital signs: Vital Signs 03/07/18 11:00 03/07/18 12:00 03/07/18 12:29 Temperature Pulse Rate 118 H 102 H 114 H Respiratory Rate 24 26 H Blood Pressure 102/65 Pulse Oximetry 94 L 03/07/18 12:30 03/07/18 12:45 03/07/18 12:54 Temperature Pulse Rate 116 H 112 H Respiratory Rate 24 Blood Pressure 89/70 L 92/54 L Pulse Oximetry 95 97 98 03/07/18 13:00 03/07/18 13:15 03/07/18 13:30 Temperature Pulse Rate 112 H 106 H 102 H Respiratory Rate 16 12 Blood Pressure 90/59 L 87/58 L 90/59 L Pulse Oximetry 98 99 100 03/07/18 13:45 03/07/18 14:00 03/07/18 14:15 Temperature Pulse Rate 104 H 104 H 108 H Respiratory Rate 13 23 Blood Pressure 92/62 L 98/59 L 94/66 L Pulse Oximetry 100 100 03/07/18 14:24 03/07/18 16:00 03/07/18 16:21 Temperature Pulse Rate 104 H 110 H Respiratory Rate 19 24 Blood Pressure 97/58 L Pulse Oximetry 95 03/07/18 17:11 03/07/18 17:12 03/07/18 17:14 Temperature Pulse Rate 110 H 109 H 109 H Respiratory Rate Blood Pressure 97/58 L 97/57 L Pulse Oximetry 97 98 97 03/07/18 17:16 03/07/18 17:19 03/07/18 17:20 Temperature Pulse Rate 110 H 117 H 119 H Respiratory Rate Blood Pressure 97/59 L 100/59 L 114/61 Pulse Oximetry 98 97 95 03/07/18 18:00 03/07/18 18:15 03/07/18 18:30 Temperature Pulse Rate 105 H 121 H 113 H Respiratory Rate 25 H 22 Blood Pressure 128/57 L 96/52 L Pulse Oximetry 93 L 96 95 03/07/18 20:00 03/07/18 20:25 03/07/18 20:26 Temperature 98.8 F Pulse Rate 103 H 107 H Respiratory Rate 26 H Blood Pressure 88/51 L Pulse Oximetry 96 97 03/07/18 20:30 03/07/18 21:00 03/07/18 21:30 Temperature Pulse Rate 110 H 105 H 104 H Respiratory Rate 27 H 35 H 29 H Blood Pressure 92/57 L 81/53 L 86/50 L Pulse Oximetry 96 95 96 03/07/18 22:00 03/07/18 22:30 03/07/18 23:00 Temperature 99.1 F Pulse Rate 97 H 96 H 104 H Respiratory Rate 30 H 29 H 26 H Blood Pressure 79/48 L 82/50 L 92/52 L Pulse Oximetry 95 93 L 93 L 03/07/18 23:30 03/08/18 00:00 03/08/18 00:30 Temperature Pulse Rate 102 H 107 H 96 H Respiratory Rate 25 H 23 29 H Blood Pressure 87/55 L 92/54 L 85/53 L Pulse Oximetry 95 94 L 96 03/08/18 01:00 03/08/18 01:30 03/08/18 02:00 Temperature Pulse Rate 97 H 90 89 Respiratory Rate 34 H 29 H 27 H Blood Pressure 82/52 L 78/49 L 84/54 L Pulse Oximetry 92 L 95 94 L 03/08/18 03:00 03/08/18 04:00 03/08/18 05:00 Temperature Pulse Rate 101 H 90 92 H Respiratory Rate 75 H 31 H 28 H Blood Pressure 101/56 L 90/54 L 91/54 L Pulse Oximetry 93 L 95 94 L 03/08/18 05:58 03/08/18 06:00 03/08/18 06:15 Temperature Pulse Rate 90 90 90 Respiratory Rate 53 H 37 H Blood Pressure 93/51 L 92/55 L Pulse Oximetry 96 95 03/08/18 06:30 03/08/18 06:45 03/08/18 07:00 Temperature 98.9 F Pulse Rate 94 H 92 H 95 H Respiratory Rate 41 H 21 40 H Blood Pressure 90/55 L 96/55 L 91/53 L Pulse Oximetry 94 L 95 95 03/08/18 07:15 03/08/18 07:30 03/08/18 07:40 Temperature Pulse Rate 93 H 90 93 H Respiratory Rate 69 H 67 H 71 H Blood Pressure 93/51 L 80/49 L 90/52 L Pulse Oximetry 95 96 95 03/08/18 07:45 03/08/18 08:00 03/08/18 08:15 Temperature Pulse Rate 92 H 98 H 100 H Respiratory Rate 86 H 34 H 43 H Blood Pressure 94/51 L 98/53 L 100/59 L Pulse Oximetry 92 L 95 96 03/08/18 08:30 03/08/18 08:55 03/08/18 09:00 Temperature Pulse Rate 94 H 114 H 117 H Respiratory Rate 91 H 67 H 36 H Blood Pressure 98/53 L 126/96 H Pulse Oximetry 96 94 L 95 Intake & Output 03/07/18 03/08/18 03/08/18 18:59 06:59 18:59 Intake Total 1120 / 1120 450 / 450 Output Total 2200 / 2200 1500 / 1500 Balance -1080 / -1080 -1050 / -1050 Weight 60.1 kg Intake: IV 400 / 400 450 / 450 KCl Inj 20 MEQ In LR 1000 mL 0 / 0 Inj 1,000 ML @ 100 mls/hr IV. CONT .Q10H6M BRENDA Rx#:[id number] Sodium Bicarbonate 8.4% Inj 150 0 / 0 MEQ In D5W Inj 850 ML @ 50 mls /hr IV.CONT .Q20H BRENDA Rx#: [id number] Flexbumin 25% Inj 50 ML @ 60 50 / 50 mls/hr IV.SIG ONCE ONE Rx#: [id number] Flexbumin 25% Inj 100 ML @ 60 200 / 200 mls/hr IV.SIG Q12H BRENDA Rx#: [id number] Cipro 400 MG/200 ML Inj 400 mg 200 / 200 In 200 ml @ 200 mls/hr IV.SIG Q8H BRENDA Rx#:[id number] Zosyn 3.375 GM Premix 50 ML @ 50 / 50 50 / 50 100 mls/hr IV.SIG Q6H BRENDA Rx#: [id number] Flagyl 500 MG Inj 100 ML @ 100 100 / 100 200 / 200 mls/hr IV.SIG Q8H BRENDA Rx#: [id number] Oral 720 / 720 Output: Urine 1200 / 1200 Pleural Fluid 500 / 500 Urine Amount (Catheter) 500 / 500 1500 / 1500 Indwelling Urethral Catheter 500 / 500 1500 / 1500 Other: Date of Last Bowel Movement 03/07/18 03/07/18 - Constitutional no acute distress - Routine HEENT Exam Head: Present: normocephalic, atraumatic - Routine Abdominal Exam Present: soft, normoactive bowel sounds. Absent: tenderness, distended - Routine Skin Exam Present: dry, warm - Routine Neurological Exam Present: alert, oriented X3 - Urinary Catheter Management Female External Cath placed during this visit: yes Reason for continuing: Hourly intake/output Insertion date: 03/07/18 Insertion time: 17:00 Indwelling Urethral Catheter Cath placed during this visit: yes, but has since been removed by the nurse Reason for continuing: Decision to DC catheter Removal date: 03/08/18 Removal time: 09:25 <Rubi Brown - Last Filed: 03/08/18 10:57> Vital signs: Vital Signs 03/07/18 17:11 03/07/18 17:12 03/07/18 17:14 Temperature Pulse Rate 110 H 109 H 109 H Respiratory Rate Blood Pressure 97/58 L 97/57 L Pulse Oximetry 97 98 97 03/07/18 17:16 03/07/18 17:19 03/07/18 17:20 Temperature Pulse Rate 110 H 117 H 119 H Respiratory Rate Blood Pressure 97/59 L 100/59 L 114/61 Pulse Oximetry 98 97 95 03/07/18 18:00 03/07/18 18:15 03/07/18 18:30 Temperature Pulse Rate 105 H 121 H 113 H Respiratory Rate 25 H 22 Blood Pressure 128/57 L 96/52 L Pulse Oximetry 93 L 96 95 03/07/18 20:00 03/07/18 20:25 03/07/18 20:26 Temperature 98.8 F Pulse Rate 103 H 107 H Respiratory Rate 26 H Blood Pressure 88/51 L Pulse Oximetry 96 97 03/07/18 20:30 03/07/18 21:00 03/07/18 21:30 Temperature Pulse Rate 110 H 105 H 104 H Respiratory Rate 27 H 35 H 29 H Blood Pressure 92/57 L 81/53 L 86/50 L Pulse Oximetry 96 95 96 03/07/18 22:00 03/07/18 22:30 03/07/18 23:00 Temperature 99.1 F Pulse Rate 97 H 96 H 104 H Respiratory Rate 30 H 29 H 26 H Blood Pressure 79/48 L 82/50 L 92/52 L Pulse Oximetry 95 93 L 93 L 03/07/18 23:30 03/08/18 00:00 03/08/18 00:30 Temperature Pulse Rate 102 H 107 H 96 H Respiratory Rate 25 H 23 29 H Blood Pressure 87/55 L 92/54 L 85/53 L Pulse Oximetry 95 94 L 96 03/08/18 01:00 03/08/18 01:30 03/08/18 02:00 Temperature Pulse Rate 97 H 90 89 Respiratory Rate 34 H 29 H 27 H Blood Pressure 82/52 L 78/49 L 84/54 L Pulse Oximetry 92 L 95 94 L 03/08/18 03:00 03/08/18 04:00 03/08/18 05:00 Temperature Pulse Rate 101 H 90 92 H Respiratory Rate 75 H 31 H 28 H Blood Pressure 101/56 L 90/54 L 91/54 L Pulse Oximetry 93 L 95 94 L 03/08/18 05:58 03/08/18 06:00 03/08/18 06:15 Temperature Pulse Rate 90 90 90 Respiratory Rate 53 H 37 H Blood Pressure 93/51 L 92/55 L Pulse Oximetry 96 95 03/08/18 06:30 03/08/18 06:45 03/08/18 07:00 Temperature 98.9 F Pulse Rate 94 H 92 H 95 H Respiratory Rate 41 H 21 40 H Blood Pressure 90/55 L 96/55 L 91/53 L Pulse Oximetry 94 L 95 95 03/08/18 07:15 03/08/18 07:30 03/08/18 07:40 Temperature Pulse Rate 93 H 90 93 H Respiratory Rate 69 H 67 H 71 H Blood Pressure 93/51 L 80/49 L 90/52 L Pulse Oximetry 95 96 95 03/08/18 07:45 03/08/18 08:00 03/08/18 08:15 Temperature Pulse Rate 92 H 98 H 100 H Respiratory Rate 86 H 34 H 43 H Blood Pressure 94/51 L 98/53 L 100/59 L Pulse Oximetry 92 L 95 96 03/08/18 08:30 03/08/18 08:55 03/08/18 09:00 Temperature Pulse Rate 94 H 114 H 117 H Respiratory Rate 91 H 67 H 36 H Blood Pressure 98/53 L 126/96 H Pulse Oximetry 96 94 L 95 03/08/18 10:00 03/08/18 10:03 03/08/18 10:15 Temperature Pulse Rate 99 H 100 H 104 H Respiratory Rate 24 23 20 Blood Pressure 90/52 L 90/53 L Pulse Oximetry 96 96 97 03/08/18 10:56 03/08/18 11:48 03/08/18 11:53 Temperature Pulse Rate 97 H 101 H 99 H Respiratory Rate 24 49 H 42 H Blood Pressure 84/55 L 80/53 L 71/52 L Pulse Oximetry 96 96 96 03/08/18 12:00 03/08/18 12:11 03/08/18 12:30 Temperature Pulse Rate 104 H 99 H 97 H Respiratory Rate 30 H 35 H 41 H Blood Pressure 68/48 L 72/52 L 78/51 L Pulse Oximetry 96 95 95 03/08/18 13:01 03/08/18 13:05 03/08/18 13:30 Temperature Pulse Rate 101 H 104 H 97 H Respiratory Rate 92 H 136 H 30 H Blood Pressure 75/57 L 100/68 80/57 L Pulse Oximetry 95 95 94 L 03/08/18 14:00 03/08/18 14:30 03/08/18 14:54 Temperature Pulse Rate 98 H 99 H 100 H Respiratory Rate 19 31 H 28 H Blood Pressure 79/61 L 79/59 L 80/54 L Pulse Oximetry 95 95 96 03/08/18 15:00 03/08/18 15:23 03/08/18 15:30 Temperature Pulse Rate 100 H 99 H 106 H Respiratory Rate 7 L 26 H 135 H Blood Pressure 78/56 L 75/56 L 75/56 L Pulse Oximetry 95 94 L 96 03/08/18 15:49 03/08/18 16:00 03/08/18 16:01 Temperature 98.2 F Pulse Rate 102 H 102 H 100 H Respiratory Rate 18 17 Blood Pressure 77/51 L Pulse Oximetry 97 96 03/08/18 16:17 Temperature Pulse Rate 100 H Respiratory Rate 22 Blood Pressure 74/56 L Pulse Oximetry 95 Intake & Output 03/07/18 03/08/18 03/08/18 18:59 06:59 18:59 Intake Total 1120 / 1120 450 / 450 50 / 50 Output Total 2200 / 2200 1500 / 1500 Balance -1080 / -1080 -1050 / -1050 50 / 50 Weight 60.1 kg Intake: IV 400 / 400 450 / 450 50 / 50 KCl Inj 20 MEQ In LR 1000 mL 0 / 0 Inj 1,000 ML @ 100 mls/hr IV. CONT .Q10H6M BRENDA Rx#:[id number] Sodium Bicarbonate 8.4% Inj 150 0 / 0 MEQ In D5W Inj 850 ML @ 50 mls /hr IV.CONT .Q20H BRENDA Rx#: [id number] Flexbumin 25% Inj 50 ML @ 60 50 / 50 mls/hr IV.SIG ONCE ONE Rx#: [id number] Flexbumin 25% Inj 100 ML @ 60 200 / 200 mls/hr IV.SIG Q12H BRENDA Rx#: [id number] Cipro 400 MG/200 ML Inj 400 mg 200 / 200 In 200 ml @ 200 mls/hr IV.SIG Q8H BRENDA Rx#:[id number] Zosyn 3.375 GM Premix 50 ML @ 50 / 50 50 / 50 50 / 50 100 mls/hr IV.SIG Q6H BRENDA Rx#: [id number] Flagyl 500 MG Inj 100 ML @ 100 100 / 100 200 / 200 mls/hr IV.SIG Q8H BRENDA Rx#: [id number] Oral 720 / 720 Output: Urine 1200 / 1200 Pleural Fluid 500 / 500 Urine Amount (Catheter) 500 / 500 1500 / 1500 Indwelling Urethral Catheter 500 / 500 1500 / 1500 Other: Date of Last Bowel Movement 03/07/18 03/07/18 03/08/18 - Urinary Catheter Management Female External Cath placed during this visit: no Indwelling Urethral Catheter Cath placed during this visit: no <Guillermina Ruffin - Last Filed: 03/08/18 16:53> Results - Labs CBC & Chem 7: 03/08/18 05:30 03/08/18 05:30 Laboratory Results - last 24 hr 03/04/18 03/04/18 03/07/18 15:00 15:00 11:28 WBC RBC Hgb Hct MCV MCH MCHC RDW Plt Count MPV Prelim Diff (Auto) Neut % (Auto) Lymph % (Auto) [place] % (Auto) Eos % (Auto) Baso % (Auto) Neut # (Auto) Lymph # (Auto) [place] # (Auto) Eos # (Auto) Baso # (Auto) WBC Differential Diff Scan Differential Comment Platelet Estimate Platelet Morphology Puncture Site Left radial Patient Temperature 98.6 O2 Saturation 92 ABG pH 7.46 H ABG pCO2 25 L ABG pO2 67 ABG HCO3 18 L ABG O2 Content 13.1 ABG Base Excess -5.6 L ABG Methemoglobin 0.5 Maxime Test Y VBG pH VBG pCO2 VBG pO2 VBG HCO3 VBG O2 Saturation VBG O2 Content VBG Base Excess VBG Carboxyhemoglobin VBG Methemoglobin Hemoglobin 10.1 L Carboxyhemoglobin 1.7 O2 Delivery Device Nasal cannula Liter Flow 6.00 Vent Setting Inspired O2 21 Critical Value No Sodium Potassium Chloride Carbon Dioxide Anion Gap BUN Creatinine Estimated GFR POC Glucose Random Glucose Calcium Magnesium Total Bilirubin AST ALT Alkaline Phosphatase Total Creatine Kinase CK-MB (CK-2) CK-MB (CK-2) % Troponin I Total Protein Albumin Free T4 Free T3 Urine Color Urine Clarity Urine pH Ur Specific [place] Urine Protein Urine Glucose (UA) Urine Ketones Urine Occult Blood Urine Nitrate Urine Bilirubin Urine Urobilinogen Ur Leukocyte Esterase Urine RBC Urine WBC Urine Bacteria Hyaline Casts Urine Mucus Micro UA Comment Ur Microscopic Review Pleural pH Pleural RBC Pleural Nuc Cells Pleural Neutrophils Pleural Lymphocytes Pleural Monocytes Pleural Histocytes Pleural Mesothelial Pleural Total Protein Pleural LDH Pleural Glucose Mitochondria M2 IgG Ab Less than 20.0 Endomysial Ab Titer ND Endomysial IgA Ab ND Tiss Transglutamin IgA Less than 1 03/07/18 03/07/18 03/07/18 12:51 12:55 13:17 WBC RBC Hgb Hct MCV MCH MCHC RDW Plt Count MPV Prelim Diff (Auto) Neut % (Auto) Lymph % (Auto) [place] % (Auto) Eos % (Auto) Baso % (Auto) Neut # (Auto) Lymph # (Auto) [place] # (Auto) Eos # (Auto) Baso # (Auto) WBC Differential Diff Scan Differential Comment Platelet Estimate Platelet Morphology Puncture Site Cl Patient Temperature 98.6 O2 Saturation ABG pH ABG pCO2 ABG pO2 ABG HCO3 ABG O2 Content ABG Base Excess ABG Methemoglobin Maxime Test VBG pH 7.46 H VBG pCO2 31 L VBG pO2 28 L* VBG HCO3 21 L VBG O2 Saturation 50 L VBG O2 Content 6.5 L VBG Base Excess -1.9 VBG Carboxyhemoglobin 1.4 VBG Methemoglobin 0.5 Hemoglobin 9.2 L Carboxyhemoglobin O2 Delivery Device Bipap Liter Flow Vent Setting Epap 5 [id number] Inspired O2 50 Critical Value Yes Sodium Potassium Chloride Carbon Dioxide Anion Gap BUN Creatinine Estimated GFR POC Glucose 141 H Random Glucose Calcium Magnesium Total Bilirubin AST ALT Alkaline Phosphatase Total Creatine Kinase 410 H CK-MB (CK-2) 5.0 H CK-MB (CK-2) % 1.2 Troponin I 0.21 H Total Protein Albumin Free T4 Free T3 Urine Color Urine Clarity Urine pH Ur Specific [place] Urine Protein Urine Glucose (UA) Urine Ketones Urine Occult Blood Urine Nitrate Urine Bilirubin Urine Urobilinogen Ur Leukocyte Esterase Urine RBC Urine WBC Urine Bacteria Hyaline Casts Urine Mucus Micro UA Comment Ur Microscopic Review Pleural pH Pleural RBC Pleural Nuc Cells Pleural Neutrophils Pleural Lymphocytes Pleural Monocytes Pleural Histocytes Pleural Mesothelial Pleural Total Protein Pleural LDH Pleural Glucose Mitochondria M2 IgG Ab Endomysial Ab Titer Endomysial IgA Ab Tiss Transglutamin IgA 03/07/18 03/07/18 03/07/18 16:04 16:04 17:48 WBC RBC Hgb Hct MCV MCH MCHC RDW Plt Count MPV Prelim Diff (Auto) Neut % (Auto) Lymph % (Auto) [place] % (Auto) Eos % (Auto) Baso % (Auto) Neut # (Auto) Lymph # (Auto) [place] # (Auto) Eos # (Auto) Baso # (Auto) WBC Differential Diff Scan Differential Comment Platelet Estimate Platelet Morphology Puncture Site Patient Temperature O2 Saturation ABG pH ABG pCO2 ABG pO2 ABG HCO3 ABG O2 Content ABG Base Excess ABG Methemoglobin Maxime Test VBG pH VBG pCO2 VBG pO2 VBG HCO3 VBG O2 Saturation VBG O2 Content VBG Base Excess VBG Carboxyhemoglobin VBG Methemoglobin Hemoglobin Carboxyhemoglobin O2 Delivery Device Liter Flow Vent Setting Inspired O2 Critical Value Sodium Potassium Chloride Carbon Dioxide Anion Gap BUN Creatinine Estimated GFR POC Glucose Random Glucose Calcium Magnesium Total Bilirubin AST ALT Alkaline Phosphatase Total Creatine Kinase CK-MB (CK-2) CK-MB (CK-2) % Troponin I Total Protein Albumin Free T4 Free T3 Urine Color Yellow Urine Clarity Hazy H Urine pH 5.0 Ur Specific [place] 1.010 Urine Protein Negative Urine Glucose (UA) Negative Urine Ketones Negative Urine Occult Blood Small H Urine Nitrate Negative Urine Bilirubin Negative Urine Urobilinogen Less than 2 Ur Leukocyte Esterase Negative Urine RBC 2 Urine WBC 3 Urine Bacteria Occasional H Hyaline Casts 1 Urine Mucus Few H Micro UA Comment Cath-culture ind Ur Microscopic Review Not Reportable Pleural pH 8.0 Pleural RBC 162 H Pleural Nuc Cells 143 H Pleural Neutrophils 72 Pleural Lymphocytes 10 Pleural Monocytes 10 Pleural Histocytes 4 Pleural Mesothelial 4 Pleural Total Protein 1.1 Pleural LDH 116 Pleural Glucose 148 Mitochondria M2 IgG Ab Endomysial Ab Titer Endomysial IgA Ab Tiss Transglutamin IgA 03/07/18 03/07/18 03/08/18 20:11 20:55 05:30 WBC 6.0 RBC 2.35 L Hgb 8.7 L Hct 25.4 L MCV 108.2 H MCH 36.9 H MCHC 34.1 RDW 15.3 Plt Count 85 L MPV 10.0 Prelim Diff (Auto) Slide review pending Neut % (Auto) 81.1 H Lymph % (Auto) 5.8 L [place] % (Auto) 13.0 H Eos % (Auto) 0.0 Baso % (Auto) 0.1 Neut # (Auto) 4.9 Lymph # (Auto) 0.4 L [place] # (Auto) 0.8 Eos # (Auto) 0.0 Baso # (Auto) 0.0 WBC Differential . Diff Scan Auto diff confirmed Differential Comment . Platelet Estimate Low L Platelet Morphology Enlarged H Puncture Site Patient Temperature O2 Saturation ABG pH ABG pCO2 ABG pO2 ABG HCO3 ABG O2 Content ABG Base Excess ABG Methemoglobin Maxime Test VBG pH VBG pCO2 VBG pO2 VBG HCO3 VBG O2 Saturation VBG O2 Content VBG Base Excess VBG Carboxyhemoglobin VBG Methemoglobin Hemoglobin Carboxyhemoglobin O2 Delivery Device Liter Flow Vent Setting Inspired O2 Critical Value Sodium Potassium Chloride Carbon Dioxide Anion Gap BUN Creatinine Estimated GFR POC Glucose 202 H Random Glucose Calcium Magnesium Total Bilirubin AST ALT Alkaline Phosphatase Total Creatine Kinase CK-MB (CK-2) CK-MB (CK-2) % Troponin I Total Protein Albumin Free T4 1.32 Free T3 1.43 L Urine Color Urine Clarity Urine pH Ur Specific [place] Urine Protein Urine Glucose (UA) Urine Ketones Urine Occult Blood Urine Nitrate Urine Bilirubin Urine Urobilinogen Ur Leukocyte Esterase Urine RBC Urine WBC Urine Bacteria Hyaline Casts Urine Mucus Micro UA Comment Ur Microscopic Review Pleural pH Pleural RBC Pleural Nuc Cells Pleural Neutrophils Pleural Lymphocytes Pleural Monocytes Pleural Histocytes Pleural Mesothelial Pleural Total Protein Pleural LDH Pleural Glucose Mitochondria M2 IgG Ab Endomysial Ab Titer Endomysial IgA Ab Tiss Transglutamin IgA 03/08/18 03/08/18 05:30 08:10 WBC RBC Hgb Hct MCV MCH MCHC RDW Plt Count MPV Prelim Diff (Auto) Neut % (Auto) Lymph % (Auto) [place] % (Auto) Eos % (Auto) Baso % (Auto) Neut # (Auto) Lymph # (Auto) [place] # (Auto) Eos # (Auto) Baso # (Auto) WBC Differential Diff Scan Differential Comment Platelet Estimate Platelet Morphology Puncture Site Patient Temperature O2 Saturation ABG pH ABG pCO2 ABG pO2 ABG HCO3 ABG O2 Content ABG Base Excess ABG Methemoglobin Maxime Test VBG pH VBG pCO2 VBG pO2 VBG HCO3 VBG O2 Saturation VBG O2 Content VBG Base Excess VBG Carboxyhemoglobin VBG Methemoglobin Hemoglobin Carboxyhemoglobin O2 Delivery Device Liter Flow Vent Setting Inspired O2 Critical Value Sodium 143 Potassium 3.4 L Chloride 106 Carbon Dioxide 24.3 Anion Gap 13 BUN 7 Creatinine 0.75 Estimated GFR 79 L POC Glucose 201 H Random Glucose 146 H Calcium 7.5 L Magnesium 1.8 D Total Bilirubin 2.4 H AST 33 ALT 40 Alkaline Phosphatase 106 Total Creatine Kinase CK-MB (CK-2) CK-MB (CK-2) % Troponin I Total Protein 6.1 L Albumin 3.1 L Free T4 Free T3 Urine Color Urine Clarity Urine pH Ur Specific [place] Urine Protein Urine Glucose (UA) Urine Ketones Urine Occult Blood Urine Nitrate Urine Bilirubin Urine Urobilinogen Ur Leukocyte Esterase Urine RBC Urine WBC Urine Bacteria Hyaline Casts Urine Mucus Micro UA Comment Ur Microscopic Review Pleural pH Pleural RBC Pleural Nuc Cells Pleural Neutrophils Pleural Lymphocytes Pleural Monocytes Pleural Histocytes Pleural Mesothelial Pleural Total Protein Pleural LDH Pleural Glucose Mitochondria M2 IgG Ab Endomysial Ab Titer Endomysial IgA Ab Tiss Transglutamin IgA Microbiology 03/07/18 16:04 Fluid - Pleural fluid Fungal Smear - Final No fungal elements seen 03/07/18 16:04 Fluid - Pleural fluid Gram Stain - Final - Imaging Impressions Abdomen/Pelvis CT 03/07/18 00:00 CONCLUSION: 1. Bilateral pleural effusions being moderate on the right and mild on the left with accompanying atelectasis or consolidation. 2. Hepatosplenomegaly. There is hepatic steatosis. 3. Small nonobstructing renal stones. 4. Suspected vicarious excretion of contrast within the gallbladder versus milk of calcium. 5. The prominence of the wall of the ascending colon and proximal transverse colon is thought to be secondary to fat deposition. Significant surrounding inflammatory change is not seen. 6. Diffuse subcutaneous edema. Chest X-Ray 03/07/18 11:37 CONCLUSION: 1. Small left pleural effusion with associated left lower lobe airspace consolidation. 2. Persistent mild positive fluid balance. Chest X-Ray 03/07/18 15:59 CONCLUSION: Worsening pulmonary edema. Chest X-Ray 03/08/18 06:00 CONCLUSION: Improving pulmonary edema. <Rubi Brown - Last Filed: 03/08/18 10:57> - Labs CBC & Chem 7: 03/08/18 05:30 03/08/18 05:30 Laboratory Results - last 24 hr 03/04/18 03/04/18 03/07/18 15:00 15:00 16:04 WBC RBC Hgb Hct MCV MCH MCHC RDW Plt Count MPV Prelim Diff (Auto) Neut % (Auto) Lymph % (Auto) [place] % (Auto) Eos % (Auto) Baso % (Auto) Neut # (Auto) Lymph # (Auto) [place] # (Auto) Eos # (Auto) Baso # (Auto) WBC Differential Diff Scan Differential Comment Platelet Estimate Platelet Morphology Sodium Potassium Chloride Carbon Dioxide Anion Gap BUN Creatinine Estimated GFR POC Glucose Random Glucose Calcium Magnesium Total Bilirubin AST ALT Alkaline Phosphatase Total Protein Albumin Free T4 Free T3 Urine Color Urine Clarity Urine pH Ur Specific [place] Urine Protein Urine Glucose (UA) Urine Ketones Urine Occult Blood Urine Nitrate Urine Bilirubin Urine Urobilinogen Ur Leukocyte Esterase Urine RBC Urine WBC Urine Bacteria Hyaline Casts Urine Mucus Micro UA Comment Ur Microscopic Review Pleural pH Pleural RBC 162 H Pleural Nuc Cells 143 H Pleural Neutrophils 72 Pleural Lymphocytes 10 Pleural Monocytes 10 Pleural Histocytes 4 Pleural Mesothelial 4 Pleural Total Protein Pleural LDH Pleural Glucose St C. diff Tox Epid 027 Mitochondria M2 IgG Ab Less than 20.0 Endomysial Ab Titer ND Endomysial IgA Ab ND Tiss Transglutamin IgA Less than 1 Celiac Disease Interp C. difficile Tox (PCR) 03/07/18 03/07/18 03/07/18 16:04 17:48 20:11 WBC RBC Hgb Hct MCV MCH MCHC RDW Plt Count MPV Prelim Diff (Auto) Neut % (Auto) Lymph % (Auto) [place] % (Auto) Eos % (Auto) Baso % (Auto) Neut # (Auto) Lymph # (Auto) [place] # (Auto) Eos # (Auto) Baso # (Auto) WBC Differential Diff Scan Differential Comment Platelet Estimate Platelet Morphology Sodium Potassium Chloride Carbon Dioxide Anion Gap BUN Creatinine Estimated GFR POC Glucose 202 H Random Glucose Calcium Magnesium Total Bilirubin AST ALT Alkaline Phosphatase Total Protein Albumin Free T4 Free T3 Urine Color Yellow Urine Clarity Hazy H Urine pH 5.0 Ur Specific [place] 1.010 Urine Protein Negative Urine Glucose (UA) Negative Urine Ketones Negative Urine Occult Blood Small H Urine Nitrate Negative Urine Bilirubin Negative Urine Urobilinogen Less than 2 Ur Leukocyte Esterase Negative Urine RBC 2 Urine WBC 3 Urine Bacteria Occasional H Hyaline Casts 1 Urine Mucus Few H Micro UA Comment Cath-culture ind Ur Microscopic Review Not Reportable Pleural pH 8.0 Pleural RBC Pleural Nuc Cells Pleural Neutrophils Pleural Lymphocytes Pleural Monocytes Pleural Histocytes Pleural Mesothelial Pleural Total Protein 1.1 Pleural LDH [address] C. diff Tox Epid 027 Mitochondria M2 IgG Ab Endomysial Ab Titer Endomysial IgA Ab Tiss Transglutamin IgA Celiac Disease Interp C. difficile Tox (PCR) 03/07/18 03/08/18 03/08/18 20:55 05:30 05:30 WBC 6.0 RBC 2.35 L Hgb 8.7 L Hct 25.4 L MCV 108.2 H MCH 36.9 H MCHC 34.1 RDW 15.3 Plt Count 85 L MPV 10.0 Prelim Diff (Auto) Slide review pending Neut % (Auto) 81.1 H Lymph % (Auto) 5.8 L [place] % (Auto) 13.0 H Eos % (Auto) 0.0 Baso % (Auto) 0.1 Neut # (Auto) 4.9 Lymph # (Auto) 0.4 L [place] # (Auto) 0.8 Eos # (Auto) 0.0 Baso # (Auto) 0.0 WBC Differential . Diff Scan Auto diff confirmed Differential Comment . Platelet Estimate Low L Platelet Morphology Enlarged H Sodium 143 Potassium 3.4 L Chloride 106 Carbon Dioxide 24.3 Anion Gap 13 BUN 7 Creatinine 0.75 Estimated GFR 79 L POC Glucose Random Glucose 146 H Calcium 7.5 L Magnesium 1.8 D Total Bilirubin 2.4 H AST 33 ALT 40 Alkaline Phosphatase 106 Total Protein 6.1 L Albumin 3.1 L Free T4 1.32 Free T3 1.43 L Urine Color Urine Clarity Urine pH Ur Specific [place] Urine Protein Urine Glucose (UA) Urine Ketones Urine Occult Blood Urine Nitrate Urine Bilirubin Urine Urobilinogen Ur Leukocyte Esterase Urine RBC Urine WBC Urine Bacteria Hyaline Casts Urine Mucus Micro UA Comment Ur Microscopic Review Pleural pH Pleural RBC Pleural Nuc Cells Pleural Neutrophils Pleural Lymphocytes Pleural Monocytes Pleural Histocytes Pleural Mesothelial Pleural Total Protein Pleural LDH Pleural Glucose St C. diff Tox Epid 027 Mitochondria M2 IgG Ab Endomysial Ab Titer Endomysial IgA Ab Tiss Transglutamin IgA Celiac Disease Interp C. difficile Tox (PCR) 03/08/18 03/08/18 03/08/18 08:10 09:00 11:55 WBC RBC Hgb Hct MCV MCH MCHC RDW Plt Count MPV Prelim Diff (Auto) Neut % (Auto) Lymph % (Auto) [place] % (Auto) Eos % (Auto) Baso % (Auto) Neut # (Auto) Lymph # (Auto) [place] # (Auto) Eos # (Auto) Baso # (Auto) WBC Differential Diff Scan Differential Comment Platelet Estimate Platelet Morphology Sodium Potassium Chloride Carbon Dioxide Anion Gap BUN Creatinine Estimated GFR POC Glucose 201 H 176 H Random Glucose Calcium Magnesium Total Bilirubin AST ALT Alkaline Phosphatase Total Protein Albumin Free T4 Free T3 Urine Color Urine Clarity Urine pH Ur Specific [place] Urine Protein Urine Glucose (UA) Urine Ketones Urine Occult Blood Urine Nitrate Urine Bilirubin Urine Urobilinogen Ur Leukocyte Esterase Urine RBC Urine WBC Urine Bacteria Hyaline Casts Urine Mucus Micro UA Comment Ur Microscopic Review Pleural pH Pleural RBC Pleural Nuc Cells Pleural Neutrophils Pleural Lymphocytes Pleural Monocytes Pleural Histocytes Pleural Mesothelial Pleural Total Protein Pleural LDH Pleural Glucose St C. diff Tox Epid 027 Invalid H Mitochondria M2 IgG Ab Endomysial Ab Titer Endomysial IgA Ab Tiss Transglutamin IgA Celiac Disease Interp C. difficile Tox (PCR) Invalid H 03/08/18 16:28 WBC RBC Hgb Hct MCV MCH MCHC RDW Plt Count MPV Prelim Diff (Auto) Neut % (Auto) Lymph % (Auto) [place] % (Auto) Eos % (Auto) Baso % (Auto) Neut # (Auto) Lymph # (Auto) [place] # (Auto) Eos # (Auto) Baso # (Auto) WBC Differential Diff Scan Differential Comment Platelet Estimate Platelet Morphology Sodium Potassium Chloride Carbon Dioxide Anion Gap BUN Creatinine Estimated GFR POC Glucose 134 H Random Glucose Calcium Magnesium Total Bilirubin AST ALT Alkaline Phosphatase Total Protein Albumin Free T4 Free T3 Urine Color Urine Clarity Urine pH Ur Specific [place] Urine Protein Urine Glucose (UA) Urine Ketones Urine Occult Blood Urine Nitrate Urine Bilirubin Urine Urobilinogen Ur Leukocyte Esterase Urine RBC Urine WBC Urine Bacteria Hyaline Casts Urine Mucus Micro UA Comment Ur Microscopic Review Pleural pH Pleural RBC Pleural Nuc Cells Pleural Neutrophils Pleural Lymphocytes Pleural Monocytes Pleural Histocytes Pleural Mesothelial Pleural Total Protein Pleural LDH Pleural Glucose St C. diff Tox Epid 027 Mitochondria M2 IgG Ab Endomysial Ab Titer Endomysial IgA Ab Tiss Transglutamin IgA Celiac Disease Interp C. difficile Tox (PCR) Microbiology 03/07/18 16:04 Fluid - Pleural fluid Gram Stain - Final 03/07/18 16:04 Fluid - Pleural fluid Body Fluid Culture - Preliminary No growth in 24 hours 03/07/18 17:48 Catheterized Urine Urine Culture - Preliminary No growth in 24 hours 03/07/18 16:04 Fluid - Pleural fluid Acid Fast Bacilli Smear - Final No acid fast bacilli seen 03/07/18 16:04 Fluid - Pleural fluid Fungal Smear - Final No fungal elements seen - Imaging Impressions Abdomen/Pelvis CT 03/07/18 00:00 CONCLUSION: 1. Bilateral pleural effusions being moderate on the right and mild on the left with accompanying atelectasis or consolidation. 2. Hepatosplenomegaly. There is hepatic steatosis. 3. Small nonobstructing renal stones. 4. Suspected vicarious excretion of contrast within the gallbladder versus milk of calcium. 5. The prominence of the wall of the ascending colon and proximal transverse colon is thought to be secondary to fat deposition. Significant surrounding inflammatory change is not seen. 6. Diffuse subcutaneous edema. Chest X-Ray 03/08/18 06:00 CONCLUSION: Improving pulmonary edema. <Guillermina Ruffin - Last Filed: 03/08/18 16:53> Assessment and Plan - Plan Assessment: - Diarrhea, nausea, vomiting x 4 months- consult for acute colitis Pt has undergone significant work up by our service prior to transfer: CT abdomen and pelvis W IV contrast (03/02) Wall thickening of the proximal half of the transverse colon with a questionable submucosal edema and mild adjacent inflammation could represent a colitis. There is trace free fluid in the pelvis. No other acute finding is identified and there are no lymphadenopathy. There is stable splenomegaly. Nonacute findings include hepatomegaly with steatosis and severe atherosclerotic disease. 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 Celiac artery and YARI are patent. Typically, stenosis of a single mesenteric artery should not cause significant mesenteric ischemia. However, in a rare but appropriate clinical setting this may be symptomatic. EGD (03/05) Esophagitis distal esophagus, gastritis in the antrum, duodenum normal, hiatal hernia. Pathology (duodenum) no significant histopathologic abnormality (stomach, antrum) minimal chronic gastritis (esophagus) minimal, focal acute esophagitis. Colonoscopy (03/05) Colitis ascending, transverse, descending, sigmoid colon. Internal hemorrhoids- bleeding, cautery done, clip applied, bleeding stopped. Pathology from right, transverse, descending, and sigmoid colon - no significant histopathologic abnormality. Enteric pathogens negative, Ova and parasites negative, C. Diff negative. Pt has been started on Lomotil and Questran, has been having more formed stools. Denies any further fecal incontinence or watery stools. - Elevated LFTs on admission (03/02) T bili-1.9 AST-309 ALT-119 Alk phos-210 Now trended down to normal limits except T bili remains elevated Likely due in part to hypotension- blood pressures of 73/54 early in admission. Pt denies any known liver issues. She does report drinking a few liquor drinks 4 times a week. Liver work up: LYLA, AMA, ASMA, celiac panel negative. Hepatitis panel negative. Iron-37 TIBC- 144 %sat-25.7 Ferritin-366 Imaging as noted above- hepatomegaly with steatosis - History of lymphoma presenting with pancytopenia- hematology/oncology following- waiting for GI biopsies which are now back and negative - Respiratory distress- pleural effusion S/P thoracentesis- transferred from [facility] to [facility], currently being managed in [facility] Plan: Stools are more formed Continue Questran Continue Lomotil Probiotics Protonix Continue to monitor LFTs BP support- pt on Levophed gtt Advised ETOH cessation Extensive GI work up as above Hematology/oncology following Our service will sign off, please reconsult as needed Have pt follow up with GI after DC Pt has been seen and examined by myself and Dr. Ruffin and this note is written on his behalf <Rubi Brown - Last Filed: 03/08/18 10:57> - Plan Seen and examined with [employer], no bleeding, no diarrhea, no abdominal pain. Advised to quit etoh. GI will sign off, reconsult as needed. FU upon dc. Thank you The exam, history, and the medical decision-making described in the above note were completed with the assistance of the mid-level provider. I reviewed and agree with the findings presented. I attest that I had a [id number] encounter with the patient on the same day, and personally performed and documented my assessment and findings in the medical record. <Guillermina Ruffin - Last Filed: 03/08/18 16:53>
[2018-03-08] MEDS: Budesonide-Formoterol 160/4.5 MCG 6 GM Inhaler INH SCH ×2 (12:07→21:08)
[2018-03-08] MEDS: metroNIDAZOLE 500 MG Tablet PO SCH ×2 (12:15→21:08)
--- NOTE | 2018-03-08 12:18 | P.PNONC ---
Subjective Interval history: Afebrile Patient reports she is breathing better, especially after the thoracentesis yesterday Per CHIEF DEPUTY she has had to increase the Levophed this morning Objective Vital Signs/Intake & Output: Vital Signs 03/07/18 12:29 03/07/18 12:30 03/07/18 12:45 Temperature Pulse Rate 114 H 116 H Respiratory Rate 26 H Blood Pressure 102/65 89/70 L Pulse Oximetry 94 L 95 97 03/07/18 12:54 03/07/18 13:00 03/07/18 13:15 Temperature Pulse Rate 112 H 112 H 106 H Respiratory Rate 24 16 Blood Pressure 92/54 L 90/59 L 87/58 L Pulse Oximetry 98 98 99 03/07/18 13:30 03/07/18 13:45 03/07/18 14:00 Temperature Pulse Rate 102 H 104 H 104 H Respiratory Rate 12 13 Blood Pressure 90/59 L 92/62 L 98/59 L Pulse Oximetry 100 100 100 03/07/18 14:15 03/07/18 14:24 03/07/18 16:00 Temperature Pulse Rate 108 H 104 H 110 H Respiratory Rate 23 19 Blood Pressure 94/66 L 97/58 L Pulse Oximetry 95 03/07/18 16:21 03/07/18 17:11 03/07/18 17:12 Temperature Pulse Rate 110 H 109 H Respiratory Rate 24 Blood Pressure 97/58 L Pulse Oximetry 97 98 03/07/18 17:14 03/07/18 17:16 03/07/18 17:19 Temperature Pulse Rate 109 H 110 H 117 H Respiratory Rate Blood Pressure 97/57 L 97/59 L 100/59 L Pulse Oximetry 97 98 97 03/07/18 17:20 03/07/18 18:00 03/07/18 18:15 Temperature Pulse Rate 119 H 105 H 121 H Respiratory Rate 25 H Blood Pressure 114/61 128/57 L Pulse Oximetry 95 93 L 96 03/07/18 18:30 03/07/18 20:00 03/07/18 20:25 Temperature 98.8 F Pulse Rate 113 H 103 H 107 H Respiratory Rate 22 26 H Blood Pressure 96/52 L 88/51 L Pulse Oximetry 95 96 03/07/18 20:26 03/07/18 20:30 03/07/18 21:00 Temperature Pulse Rate 110 H 105 H Respiratory Rate 27 H 35 H Blood Pressure 92/57 L 81/53 L Pulse Oximetry 97 96 95 03/07/18 21:30 03/07/18 22:00 03/07/18 22:30 Temperature Pulse Rate 104 H 97 H 96 H Respiratory Rate 29 H 30 H 29 H Blood Pressure 86/50 L 79/48 L 82/50 L Pulse Oximetry 96 95 93 L 03/07/18 23:00 03/07/18 23:30 03/08/18 00:00 Temperature 99.1 F Pulse Rate 104 H 102 H 107 H Respiratory Rate 26 H 25 H 23 Blood Pressure 92/52 L 87/55 L 92/54 L Pulse Oximetry 93 L 95 94 L 03/08/18 00:30 03/08/18 01:00 03/08/18 01:30 Temperature Pulse Rate 96 H 97 H 90 Respiratory Rate 29 H 34 H 29 H Blood Pressure 85/53 L 82/52 L 78/49 L Pulse Oximetry 96 92 L 95 03/08/18 02:00 03/08/18 03:00 03/08/18 04:00 Temperature Pulse Rate 89 101 H 90 Respiratory Rate 27 H 75 H 31 H Blood Pressure 84/54 L 101/56 L 90/54 L Pulse Oximetry 94 L 93 L 95 03/08/18 05:00 03/08/18 05:58 03/08/18 06:00 Temperature Pulse Rate 92 H 90 90 Respiratory Rate 28 H 53 H Blood Pressure 91/54 L 93/51 L Pulse Oximetry 94 L 96 03/08/18 06:15 03/08/18 06:30 03/08/18 06:45 Temperature 98.9 F Pulse Rate 90 94 H 92 H Respiratory Rate 37 H 41 H 21 Blood Pressure 92/55 L 90/55 L 96/55 L Pulse Oximetry 95 94 L 95 03/08/18 07:00 03/08/18 07:15 03/08/18 07:30 Temperature Pulse Rate 95 H 93 H 90 Respiratory Rate 40 H 69 H 67 H Blood Pressure 91/53 L 93/51 L 80/49 L Pulse Oximetry 95 95 96 03/08/18 07:40 03/08/18 07:45 03/08/18 08:00 Temperature Pulse Rate 93 H 92 H 98 H Respiratory Rate 71 H 86 H 34 H Blood Pressure 90/52 L 94/51 L 98/53 L Pulse Oximetry 95 92 L 95 03/08/18 08:15 03/08/18 08:30 03/08/18 08:55 Temperature Pulse Rate 100 H 94 H 114 H Respiratory Rate 43 H 91 H 67 H Blood Pressure 100/59 L 98/53 L 126/96 H Pulse Oximetry 96 96 94 L 03/08/18 09:00 Temperature Pulse Rate 117 H Respiratory Rate 36 H Blood Pressure Pulse Oximetry 95 Intake & Output 03/07/18 03/08/18 03/08/18 18:59 06:59 18:59 Intake Total 1120 / 1120 450 / 450 Output Total 2200 / 2200 1500 / 1500 Balance -1080 / -1080 -1050 / -1050 Weight 132 lb 7.965 oz Intake: IV 400 / 400 450 / 450 KCl Inj 20 MEQ In LR 1000 mL 0 / 0 Inj 1,000 ML @ 100 mls/hr IV. CONT .Q10H6M [facility] Rx#:[id number] Sodium Bicarbonate 8.4% Inj 150 0 / 0 MEQ In D5W Inj 850 ML @ 50 mls /hr IV.CONT .Q20H [facility] Rx#: [id number] Flexbumin 25% Inj 50 ML @ 60 50 / 50 mls/hr IV.SIG ONCE ONE Rx#: [id number] Flexbumin 25% Inj 100 ML @ 60 200 / 200 mls/hr IV.SIG Q12H [facility] Rx#: [id number] Cipro 400 MG/200 ML Inj 400 mg 200 / 200 In 200 ml @ 200 mls/hr IV.SIG Q8H [facility] Rx#:[id number] Zosyn 3.375 GM Premix 50 ML @ 50 / 50 50 / 50 100 mls/hr IV.SIG Q6H [facility] Rx#: [id number] Flagyl 500 MG Inj 100 ML @ 100 100 / 100 200 / 200 mls/hr IV.SIG Q8H [facility] Rx#: [id number] Oral 720 / 720 Output: Urine 1200 / 1200 Pleural Fluid 500 / 500 Urine Amount (Catheter) 500 / 500 1500 / 1500 Indwelling Urethral Catheter 500 / 500 1500 / 1500 Other: Date of Last Bowel Movement 03/07/18 03/07/18 Result Diagrams: 03/08/18 05:30 03/08/18 05:30 Laboratory Results: Laboratory Results - last 24 hr 03/04/18 03/04/18 03/07/18 15:00 15:00 11:28 WBC RBC Hgb Hct MCV MCH MCHC RDW Plt Count MPV Prelim Diff (Auto) Neut % (Auto) Lymph % (Auto) Braxton % (Auto) Eos % (Auto) Baso % (Auto) Neut # (Auto) Lymph # (Auto) Braxton # (Auto) Eos # (Auto) Baso # (Auto) WBC Differential Diff Scan Differential Comment Platelet Estimate Platelet Morphology Puncture Site Left radial Patient Temperature 98.6 O2 Saturation 92 ABG pH 7.46 H ABG pCO2 25 L ABG pO2 67 ABG HCO3 18 L ABG O2 Content 13.1 ABG Base Excess -5.6 L ABG Methemoglobin 0.5 Maxime Test Y VBG pH VBG pCO2 VBG pO2 VBG HCO3 VBG O2 Saturation VBG O2 Content VBG Base Excess VBG Carboxyhemoglobin VBG Methemoglobin Hemoglobin 10.1 L Carboxyhemoglobin 1.7 O2 Delivery Device Nasal cannula Liter Flow 6.00 Vent Setting Inspired O2 21 Critical Value No Sodium Potassium Chloride Carbon Dioxide Anion Gap BUN Creatinine Estimated GFR POC Glucose Random Glucose Calcium Magnesium Total Bilirubin AST ALT Alkaline Phosphatase Total Creatine Kinase CK-MB (CK-2) CK-MB (CK-2) % Troponin I Total Protein Albumin Free T4 Free T3 Urine Color Urine Clarity Urine pH Ur Specific [place] Urine Protein Urine Glucose (UA) Urine Ketones Urine Occult Blood Urine Nitrate Urine Bilirubin Urine Urobilinogen Ur Leukocyte Esterase Urine RBC Urine WBC Urine Bacteria Hyaline Casts Urine Mucus Micro UA Comment Ur Microscopic Review Pleural pH Pleural RBC Pleural Nuc Cells Pleural Neutrophils Pleural Lymphocytes Pleural Monocytes Pleural Histocytes Pleural Mesothelial Pleural Total Protein Pleural LDH Pleural Glucose Mitochondria M2 IgG Ab Less than 20.0 Endomysial Ab Titer ND Endomysial IgA Ab ND Tiss Transglutamin IgA Less than 1 03/07/18 03/07/18 03/07/18 12:51 12:55 13:17 WBC RBC Hgb Hct MCV MCH MCHC RDW Plt Count MPV Prelim Diff (Auto) Neut % (Auto) Lymph % (Auto) Braxton % (Auto) Eos % (Auto) Baso % (Auto) Neut # (Auto) Lymph # (Auto) Braxton # (Auto) Eos # (Auto) Baso # (Auto) WBC Differential Diff Scan Differential Comment Platelet Estimate Platelet Morphology Puncture Site Cl Patient Temperature 98.6 O2 Saturation ABG pH ABG pCO2 ABG pO2 ABG HCO3 ABG O2 Content ABG Base Excess ABG Methemoglobin Maxime Test VBG pH 7.46 H VBG pCO2 31 L VBG pO2 28 L* VBG HCO3 21 L VBG O2 Saturation 50 L VBG O2 Content 6.5 L VBG Base Excess -1.9 VBG Carboxyhemoglobin 1.4 VBG Methemoglobin 0.5 Hemoglobin 9.2 L Carboxyhemoglobin O2 Delivery Device Bipap Liter Flow Vent Setting Epap 5 [id number] Inspired O2 50 Critical Value Yes Sodium Potassium Chloride Carbon Dioxide Anion Gap BUN Creatinine Estimated GFR POC Glucose 141 H Random Glucose Calcium Magnesium Total Bilirubin AST ALT Alkaline Phosphatase Total Creatine Kinase 410 H CK-MB (CK-2) 5.0 H CK-MB (CK-2) % 1.2 Troponin I 0.21 H Total Protein Albumin Free T4 Free T3 Urine Color Urine Clarity Urine pH Ur Specific [place] Urine Protein Urine Glucose (UA) Urine Ketones Urine Occult Blood Urine Nitrate Urine Bilirubin Urine Urobilinogen Ur Leukocyte Esterase Urine RBC Urine WBC Urine Bacteria Hyaline Casts Urine Mucus Micro UA Comment Ur Microscopic Review Pleural pH Pleural RBC Pleural Nuc Cells Pleural Neutrophils Pleural Lymphocytes Pleural Monocytes Pleural Histocytes Pleural Mesothelial Pleural Total Protein Pleural LDH Pleural Glucose Mitochondria M2 IgG Ab Endomysial Ab Titer Endomysial IgA Ab Tiss Transglutamin IgA 03/07/18 03/07/18 03/07/18 16:04 16:04 17:48 WBC RBC Hgb Hct MCV MCH MCHC RDW Plt Count MPV Prelim Diff (Auto) Neut % (Auto) Lymph % (Auto) Braxton % (Auto) Eos % (Auto) Baso % (Auto) Neut # (Auto) Lymph # (Auto) Braxton # (Auto) Eos # (Auto) Baso # (Auto) WBC Differential Diff Scan Differential Comment Platelet Estimate Platelet Morphology Puncture Site Patient Temperature O2 Saturation ABG pH ABG pCO2 ABG pO2 ABG HCO3 ABG O2 Content ABG Base Excess ABG Methemoglobin Maxime Test VBG pH VBG pCO2 VBG pO2 VBG HCO3 VBG O2 Saturation VBG O2 Content VBG Base Excess VBG Carboxyhemoglobin VBG Methemoglobin Hemoglobin Carboxyhemoglobin O2 Delivery Device Liter Flow Vent Setting Inspired O2 Critical Value Sodium Potassium Chloride Carbon Dioxide Anion Gap BUN Creatinine Estimated GFR POC Glucose Random Glucose Calcium Magnesium Total Bilirubin AST ALT Alkaline Phosphatase Total Creatine Kinase CK-MB (CK-2) CK-MB (CK-2) % Troponin I Total Protein Albumin Free T4 Free T3 Urine Color Yellow Urine Clarity Hazy H Urine pH 5.0 Ur Specific [place] 1.010 Urine Protein Negative Urine Glucose (UA) Negative Urine Ketones Negative Urine Occult Blood Small H Urine Nitrate Negative Urine Bilirubin Negative Urine Urobilinogen Less than 2 Ur Leukocyte Esterase Negative Urine RBC 2 Urine WBC 3 Urine Bacteria Occasional H Hyaline Casts 1 Urine Mucus Few H Micro UA Comment Cath-culture ind Ur Microscopic Review Not Reportable Pleural pH 8.0 Pleural RBC 162 H Pleural Nuc Cells 143 H Pleural Neutrophils 72 Pleural Lymphocytes 10 Pleural Monocytes 10 Pleural Histocytes 4 Pleural Mesothelial 4 Pleural Total Protein 1.1 Pleural LDH 116 Pleural Glucose 148 Mitochondria M2 IgG Ab Endomysial Ab Titer Endomysial IgA Ab Tiss Transglutamin IgA 03/07/18 03/07/18 03/08/18 20:11 20:55 05:30 WBC 6.0 RBC 2.35 L Hgb 8.7 L Hct 25.4 L MCV 108.2 H MCH 36.9 H MCHC 34.1 RDW 15.3 Plt Count 85 L MPV 10.0 Prelim Diff (Auto) Slide review pending Neut % (Auto) 81.1 H Lymph % (Auto) 5.8 L Braxton % (Auto) 13.0 H Eos % (Auto) 0.0 Baso % (Auto) 0.1 Neut # (Auto) 4.9 Lymph # (Auto) 0.4 L Braxton # (Auto) 0.8 Eos # (Auto) 0.0 Baso # (Auto) 0.0 WBC Differential . Diff Scan Auto diff confirmed Differential Comment . Platelet Estimate Low L Platelet Morphology Enlarged H Puncture Site Patient Temperature O2 Saturation ABG pH ABG pCO2 ABG pO2 ABG HCO3 ABG O2 Content ABG Base Excess ABG Methemoglobin Maxime Test VBG pH VBG pCO2 VBG pO2 VBG HCO3 VBG O2 Saturation VBG O2 Content VBG Base Excess VBG Carboxyhemoglobin VBG Methemoglobin Hemoglobin Carboxyhemoglobin O2 Delivery Device Liter Flow Vent Setting Inspired O2 Critical Value Sodium Potassium Chloride Carbon Dioxide Anion Gap BUN Creatinine Estimated GFR POC Glucose 202 H Random Glucose Calcium Magnesium Total Bilirubin AST ALT Alkaline Phosphatase Total Creatine Kinase CK-MB (CK-2) CK-MB (CK-2) % Troponin I Total Protein Albumin Free T4 1.32 Free T3 1.43 L Urine Color Urine Clarity Urine pH Ur Specific [place] Urine Protein Urine Glucose (UA) Urine Ketones Urine Occult Blood Urine Nitrate Urine Bilirubin Urine Urobilinogen Ur Leukocyte Esterase Urine RBC Urine WBC Urine Bacteria Hyaline Casts Urine Mucus Micro UA Comment Ur Microscopic Review Pleural pH Pleural RBC Pleural Nuc Cells Pleural Neutrophils Pleural Lymphocytes Pleural Monocytes Pleural Histocytes Pleural Mesothelial Pleural Total Protein Pleural LDH Pleural Glucose Mitochondria M2 IgG Ab Endomysial Ab Titer Endomysial IgA Ab Tiss Transglutamin IgA 03/08/18 03/08/18 03/08/18 05:30 08:10 11:55 WBC RBC Hgb Hct MCV MCH MCHC RDW Plt Count MPV Prelim Diff (Auto) Neut % (Auto) Lymph % (Auto) Braxton % (Auto) Eos % (Auto) Baso % (Auto) Neut # (Auto) Lymph # (Auto) Braxton # (Auto) Eos # (Auto) Baso # (Auto) WBC Differential Diff Scan Differential Comment Platelet Estimate Platelet Morphology Puncture Site Patient Temperature O2 Saturation ABG pH ABG pCO2 ABG pO2 ABG HCO3 ABG O2 Content ABG Base Excess ABG Methemoglobin Maxime Test VBG pH VBG pCO2 VBG pO2 VBG HCO3 VBG O2 Saturation VBG O2 Content VBG Base Excess VBG Carboxyhemoglobin VBG Methemoglobin Hemoglobin Carboxyhemoglobin O2 Delivery Device Liter Flow Vent Setting Inspired O2 Critical Value Sodium 143 Potassium 3.4 L Chloride 106 Carbon Dioxide 24.3 Anion Gap 13 BUN 7 Creatinine 0.75 Estimated GFR 79 L POC Glucose 201 H 176 H Random Glucose 146 H Calcium 7.5 L Magnesium 1.8 D Total Bilirubin 2.4 H AST 33 ALT 40 Alkaline Phosphatase 106 Total Creatine Kinase CK-MB (CK-2) CK-MB (CK-2) % Troponin I Total Protein 6.1 L Albumin 3.1 L Free T4 Free T3 Urine Color Urine Clarity Urine pH Ur Specific [place] Urine Protein Urine Glucose (UA) Urine Ketones Urine Occult Blood Urine Nitrate Urine Bilirubin Urine Urobilinogen Ur Leukocyte Esterase Urine RBC Urine WBC Urine Bacteria Hyaline Casts Urine Mucus Micro UA Comment Ur Microscopic Review Pleural pH Pleural RBC Pleural Nuc Cells Pleural Neutrophils Pleural Lymphocytes Pleural Monocytes Pleural Histocytes Pleural Mesothelial Pleural Total Protein Pleural LDH Pleural Glucose Mitochondria M2 IgG Ab Endomysial Ab Titer Endomysial IgA Ab Tiss Transglutamin IgA Culture Results: Microbiology 03/07/18 16:04 Fungal Smear - Final Fluid - Pleural fluid No fungal elements seen 03/07/18 16:04 Gram Stain - Final Fluid - Pleural fluid Imaging Studies: Impressions Abdomen/Pelvis CT 03/07/18 00:00 CONCLUSION: 1. Bilateral pleural effusions being moderate on the right and mild on the left with accompanying atelectasis or consolidation. 2. Hepatosplenomegaly. There is hepatic steatosis. 3. Small nonobstructing renal stones. 4. Suspected vicarious excretion of contrast within the gallbladder versus milk of calcium. 5. The prominence of the wall of the ascending colon and proximal transverse colon is thought to be secondary to fat deposition. Significant surrounding inflammatory change is not seen. 6. Diffuse subcutaneous edema. Chest X-Ray 03/07/18 11:37 CONCLUSION: 1. Small left pleural effusion with associated left lower lobe airspace consolidation. 2. Persistent mild positive fluid balance. Chest X-Ray 03/07/18 15:59 CONCLUSION: Worsening pulmonary edema. Chest X-Ray 03/08/18 06:00 CONCLUSION: Improving pulmonary edema. Medications: Active Medications Generic Name Dose Route Start Last Admin Trade Name Freq PRN Reason Stop Dose Admin Albuterol 1 ampul 03/07/18 22:00 03/08/18 08:00 Duoneb Neb (Stewart) NEB 1 ampul Q6HR NEB [facility] Administration Budesonide/Formoterol Fumarate 2 puff 03/07/18 21:00 03/08/18 12:07 Symbicort 160/4.5 Mcg Inh INH 2 puff BID [facility] Administration Cholestyramine Resin 4 gm 03/05/18 21:00 03/08/18 08:32 Questran 4 Gm Pkt PO 4 gm BID [facility] Administration Diphenoxylate HCl/Atropine 1 tab 03/06/18 18:00 03/08/18 06:38 Lomotil PO Not Given Q6HR [facility] Furosemide 20 mg 03/07/18 18:00 03/08/18 08:37 Lasix Inj IV.PUSH Not Given BID@0900,1800 [facility] Sodium Chloride 1,000 mls @ 0 mls/hr 03/02/18 12:15 03/03/18 02:08 Ns Inj IV.SIG Infused BOLUS [facility] Infusion Wide Open Sodium Chloride 1,000 mls @ 0 mls/hr 03/03/18 01:58 03/03/18 14:43 Ns Inj IV.SIG Infused BOLUS [facility] Infusion Wide Open Magnesium Sulfate Inj 2 gm/ 100 mls @ 50 mls/hr 03/03/18 13:19 03/04/18 11:00 Sodium Chloride IV.SIG Infused UNSCH PRN Infusion For Magnesium 1.2 - 1.6 mg/dL Potassium Chloride 20 meq in 100 mls @ 50 mls/hr 03/03/18 13:19 03/06/18 13: 22 Kcl 20 Meq Premix Inj IV.SIG Infused Q2H PRN Infusion For Potassium 2.8 - 3.2 mEq/L Magnesium Sulfate Inj 4 gm/ 100 mls @ 50 mls/hr 03/03/18 13:19 03/07/18 03:38 Sodium Chloride IV.SIG Infused UNSCH PRN Infusion For Magnesium 0.9 - 1.1 mg/dL Sodium Chloride 1,000 mls @ 0 mls/hr 03/03/18 22:38 03/04/18 07:00 Ns Inj IV.SIG Infused BOLUS [facility] Infusion Wide Open Norepinephrine Bitartrate 4 mg in 250 mls @ 7.5 mls/hr 03/07/18 11:37 00:45 Levophed-Dextrose 4 Mg/250 Ml Drip IV.SIG 4 mcg/min TITRATE PRN 15 mls/hr Per Protocol Titration Protocol 2 MCG/MIN Piperacillin/Tazobactam/Dextrose 50 mls @ 100 mls/hr 03/07/18 18:00 03/08/18 06:40 Zosyn 3.375 Gm Premix IV.SIG 100 mls/hr Q6H [facility] Administration Albumin Human 100 mls @ 60 mls/hr 03/07/18 17:00 03/08/18 06:40 Flexbumin 25% Inj IV.SIG Infused Q12H [facility] Infusion Insulin Aspart 0 unit 03/02/18 17:00 03/08/18 08:33 Novolog Insulin Correctional Sugar Inj SQ 3 unit ACHS [facility] Administration Protocol Lactobacillus Acidophilus 1 tab 03/02/18 18:00 03/08/18 08:32 Lactinex PO 1 tab TID [facility] Administration Methylprednisolone Sodium Succinate 60 mg 03/07/18 16:30 03/08/18 04:24 Solumedrol Inj IV.PUSH 60 mg Q12H [facility] Administration Morphine Sulfate 2 mg 03/03/18 11:25 03/07/18 14:13 Morphine Inj IV.PUSH 2 mg Q4H PRN Administration PAIN SCALE 1 TO 10 Pantoprazole Sodium 40 mg 03/07/18 16:30 03/08/18 08:32 Protonix PO 40 mg DAILY [facility] Administration Potassium Chloride 20 meq 03/07/18 21:00 03/08/18 08:32 K-Dur PO 20 meq BID [facility] Administration Potassium Phosphate 2,000 mg 03/03/18 13:19 03/03/18 14:17 K-Phos Original PO 2,000 mg Q4H PRN Administration Phosphorus Less Than 2.5 mg/dL Promethazine HCl 25 mg 03/03/18 11:23 03/08/18 02:24 Phenergan PO 25 mg Q4H PRN Administration NAUSEA OR VOMITING Sodium Chloride 2 ml 03/02/18 10:14 03/07/18 01:40 Ns Flush IV.FLUSH 2 ml PRN PRN Administration FLUSH AFTER USING IV ACCESS Trimethobenzamide HCl 200 mg 03/03/18 04:53 03/06/18 09:41 Tigan Ing IM 200 mg Q6H PRN Administration NAUSEA OR VOMITING Objective Remarks: GENERAL: Chronically ill-appearing older female resting in bed in no obvious distress SKIN: Warm and dry. HEAD: Normocephalic. EYES: No scleral icterus. No injection or drainage. NECK: Supple, trachea midline. No JVD or lymphadenopathy. CARDIOVASCULAR: Regular rate and rhythm without murmurs. RESPIRATORY: Breath sounds equal bilaterally. No accessory muscle use. GASTROINTESTINAL: + Hepatomegaly; otherwise soft, nontender. EXTREMITIES: No cyanosis, or edema. MUSCULOSKELETAL: Adequate muscle tone. NEUROLOGICAL: No obvious focal deficit. Awake, alert, and oriented x3. 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 Her last cycle of chemotherapy was July 2016. She is admitted with worsening diarrhea over the last several months. CT scan of the abdomen shows area of colonic inflammation. 1. Patient not having any further diarrhea; unfortunately she remains on levophed in the ICU. 2. Patient is on Flagyl for her colitis. GI has seen the patient this morning and signed off. 3. Hemoglobin trended down slightly today to 8.7. No obvious bleeding. Transfuse to keep hemoglobin greater than 8 4. Pathology from colon biopsy negative for recurrence of lymphoma. 5. Continue supportive care. - Attending Statement The exam, history, and the medical decision-making described in the above note were completed with the assistance of the mid-level provider. I reviewed and agree with the findings presented. I attest that I had a [id number] encounter with the patient on the same day, and personally performed and documented my assessment and findings in the medical record. Pt seen and examined in AM. Feels better post thoracentesis. Discussed colonoscopy findings, pathology was negative, repeat CT does not show the area of inflammation/colitis. Pt's diarrhea improved. Repeat CT show no recurrent lymphoma. Bx colon negative for malignancy. More pressing symptoms are abn EKG and ECHO with decreased EF compare to her pre chemo ECHO. Cardiology evaluation consulted. Pt will need work up but needs to be more stable. Unclear at this point if decrease EF due to chemo vs. new ischemia in light of EKG changes. Supportive care in ICU. (1) NHL (non-Hodgkin's lymphoma) Qualifiers: Non-Hodgkin lymphoma type: B-cell B-cell lymphoma type: diffuse large B-cell Lymphoma site: intra-abdominal nodes Qualified Code(s): C83.33 - Diffuse large B-cell lymphoma, intra-abdominal lymph nodes
--- NOTE | 2018-03-08 13:00 | P.DIET ---
Nutritional Evaluation Type of nutrition evaluation: follow-up Nutrition screening: Weight Loss > 10 lbs Subjective Subjective Comments: Transferred from [facility] last night with pleural effusion s/p thoracentesis and elevated troponin. Objective - Diagnosis Abdominal pain, nausea and vomiting x 4 months - Objective [place] body weight: 48 kg Body Weight Used for Calculations: Actual (52.9kg) Energy Needs - Lower Range (kCal/kg): 28 Energy Needs - Upper Range (kCal/kg): 33 Lower Limit kCal/kg (kCals): 1,481 Upper Limit kCal/kg (kCals): 1,746 Lower Limit Protein Factor (Grams per Kg): 1.2 Upper Limit Protein Factor (Grams per Kg): 1.5 Lower Protein Needs (Protein): 63 Upper Protein Needs (Protein): 79 Fluid Factor (ml/kg): 35 Estimated Fluid Needs (ml): 1,852 Dietitian Reviewed in Medical Record: Current diet, Curent medications, Intake & Output, Labs, Medical history Diet Order: CL Objective Comments: PMH: HTN, DM, GERD, chronic diarrhea, HLD, hx lymphoma s/p chemotherapy Meds include: Lactinex Assessment Assessment: Pt at nutritional risk r/t dx and recent unintentional wt loss. Pt admitted for abdominal pain, nausea and vomiting. She is currently on a Low Residue, Soft Diet and ate 25% of her breakfast this morning. Will send Miles Godinez tid: each 8 oz serving provides 220 kcals and 10 gms protein. Will monitor supplement acceptance. Also recommend the addition of 1800 ADA restriction to diet. CBW = 60.1 kg. Recommendations: 1. 1800 ADA Diet 2. Glucerna Shakes tid Dietitian to Monitor: Lab values, Supplement acceptance, Intake & Output, Diet tolerance, Weight change, PO Intake, Medical course
[2018-03-08] MEDS: Potassium Chlor 40 mEq Premix 40 MEQ/100 ML PIGGYBACK IV.SIG PRN (13:03)
[2018-03-08] MEDS: Morphine Inj 4 MG/ML Vial IV.PUSH PRN (14:58)
[2018-03-09] MEDS: Hydrocortisone/Pramoxine Foam 10 GM Can RECTAL SCH ×3 (04:44→17:15)
[2018-03-09] MEDS: MethylPREDNISolone Sod Succinate Inj 125 MG/2 ML Vial IV.PUSH SCH ×2 (05:09→16:02)
[2018-03-09] MEDS: metroNIDAZOLE 500 MG Tablet PO SCH ×2 (05:10→13:04)
[2018-03-09] MEDS: Albumin Human 25% Inj 100 ML IV.SIG SCH ×2 (05:10→17:14)
[2018-03-09] MEDS: Piperacil/Tazo 3.375 GM Premix 50 ML IV.SIG SCH ×3 (05:10→17:15)
[2018-03-09] MEDS: Diphenoxylate/Atropine 2.5/0.025 MG Tablet PO SCH ×3 (05:11→17:14)
[2018-03-09] MEDS: Insulin NovoLOG Aspart Correctional Sugar Inj SQ SCH ×3 (08:28→17:14)
[2018-03-09] MEDS: Lactobacillus Acidophilus/L. Spores Tablet PO SCH ×3 (08:32→17:14)
[2018-03-09] MEDS: Budesonide-Formoterol 160/4.5 MCG 6 GM Inhaler INH SCH (08:32)
[2018-03-09 09:12] LABS: Carbon Dioxide 20.5 meq/L (21.0-32.0); Potassium 4.6 meq/L (3.5-5.1)
[2018-03-09 09:13] LABS: Calcium 7.9 mg/dL (8.5-10.1); Magnesium 2.1 mg/dL (1.5-2.5)
[2018-03-09 09:18] LABS: Baso % (Auto) 0.3 % (0.0-2.0); Eos % (Auto) 0.1 % (0.0-4.0); Hemoglobin 9.6 gm/dL (11.6-15.3); Lymph # (Auto) 0.3 th/mm3 (1.0-4.8); Lymph % (Auto) 3.9 % (9.0-44.0); Mean Corpuscular Hemoglobin 36.5 pg (27.0-34.0); Mean Corpuscular Volume 110.5 fL (80.0-100.0); Mean Platelet Volume 9.5 fL (7.0-11.0); Mono # (Auto) 0.5 th/mm3 (0.0-0.9); Mono % (Auto) 7.7 % (0.0-8.0); Neut # (Auto) 6.1 th/mm3 (1.8-7.7); Platelet Count 168 th/mm3 (150-450); Red Blood Count 2.62 mil/mm3 (4.00-5.30); Red Cell Distribution Width 15.3 % (11.6-17.2)
--- NOTE | 2018-03-09 09:52 | P.PNCC ---
Subjective Subjective Remarks/Hospital Course: 58-year-old female with known history of hyperlipidemia, diabetes, gastroesophageal reflux, history of lymphoma who presented to the hospital initially because of abdominal pain, chronic diarrhea, nausea vomiting for 4 months. Patient is being followed by Dr. Thomas in the outpatient setting for the chronic diarrhea. She underwent endoscopy on October this year there was a stricture found and was dilated at that time. Colonoscopy was scheduled for next Sunday however due to the patient's increased nausea vomiting diarrhea she came to the emergency department for evaluation. Patient had significant workup done in the hospital to include full stool evaluation for any infectious process which was unremarkable. CT scan did indicate signs of colitis in the proximal half of the transverse colon with submucosal edema. Patient was admitted the hospital and GI consultation was requested and performed. Patient did undergo colonoscopy which did indicate colitis, biopsies were taken. Patient did have internal hemorrhoids +1 external hemorrhoid that needed to be clipped. The patient's stay her hemoglobin was monitored and her hemoglobin did drop down to 7.8 and given that she had heme positive stools she is transfused 1 unit of packed red blood cells which her hemoglobin went back up to 10.1. Patient's hemoglobin has maintained stability since then. Patient was in the ICU secondary to continued hypotension secondary to hypovolemia from her nausea, vomiting, diarrhea. Patient was on electrolyte replacement protocol due to electrolyte loss from diarrhea. Patient was started on Questran and Lomotil with significant improvement. Patient was given multiple liters of fluid boluses as well as albumin infusions with improvement of her blood pressure. Patient does have history of chronic anemia which appears to be macrocytic. Hematology was consulted for further recommendations in reference to the patient's history of lymphoma, chronic anemia, pancytopenia. Patient was actually doing well and was transferred to the medical floor. However last evening the patient had acute onset of shortness of breath. There is no indication chest pain, abdominal pain, nausea, vomiting. Patient had significant workup performed which did indicate a acute troponin elevation, significant elevation of BNP. Chest x-ray did showed new findings of pulmonary edema, pulmonary angiogram was performed which did show significant pulmonary edema with bilateral pleural effusions. Patient was transferred back to the ICU due to acute hypoxic respiratory failure. Patient was requiring 6 L nasal cannula maintain O2 saturations greater than 92%. Upon review of the EKGs it does appears patient had acute changes with Q-wave presentation in the inferior leads. Due to the patient's respiratory failure, significant hypotension, acute myocardial infarction, acute cardiomyopathy, acute congestive heart failure critical care consultation was requested for management in the ICU. SUBJECTIVE: 03/09: Currently on norepinephrine drip at 8 mcg/min. Complaining of being slightly short of breath. Current x-ray revealed tiny pleural effusions. Abdominal pain control. Objective Vital Signs / I&O: Vital Signs 03/08/18 10:00 03/08/18 10:03 03/08/18 10:15 Temperature Pulse Rate 99 H 100 H 104 H Respiratory Rate 24 23 20 Blood Pressure 90/52 L 90/53 L Pulse Oximetry 96 96 97 03/08/18 10:56 03/08/18 11:48 03/08/18 11:53 Temperature Pulse Rate 97 H 101 H 99 H Respiratory Rate 24 49 H 42 H Blood Pressure 84/55 L 80/53 L 71/52 L Pulse Oximetry 96 96 96 03/08/18 12:00 03/08/18 12:11 03/08/18 12:30 Temperature Pulse Rate 104 H 99 H 97 H Respiratory Rate 30 H 35 H 41 H Blood Pressure 68/48 L 72/52 L 78/51 L Pulse Oximetry 96 95 95 03/08/18 13:01 03/08/18 13:05 03/08/18 13:30 Temperature Pulse Rate 101 H 104 H 97 H Respiratory Rate 92 H 136 H 30 H Blood Pressure 75/57 L 100/68 80/57 L Pulse Oximetry 95 95 94 L 03/08/18 14:00 03/08/18 14:30 03/08/18 14:54 Temperature Pulse Rate 98 H 99 H 100 H Respiratory Rate 19 31 H 28 H Blood Pressure 79/61 L 79/59 L 80/54 L Pulse Oximetry 95 95 96 03/08/18 15:00 03/08/18 15:23 03/08/18 15:30 Temperature Pulse Rate 100 H 99 H 106 H Respiratory Rate 7 L 26 H 135 H Blood Pressure 78/56 L 75/56 L 75/56 L Pulse Oximetry 95 94 L 96 03/08/18 15:49 03/08/18 16:00 03/08/18 16:01 Temperature 98.2 F Pulse Rate 102 H 102 H 100 H Respiratory Rate 18 17 Blood Pressure 77/51 L Pulse Oximetry 97 96 03/08/18 16:17 03/08/18 18:00 03/08/18 19:00 Temperature Pulse Rate 100 H 100 H 97 H Respiratory Rate 22 Blood Pressure 74/56 L Pulse Oximetry 95 03/08/18 20:00 03/08/18 21:51 03/08/18 22:00 Temperature 98.8 F Pulse Rate 97 H 98 H 100 H Respiratory Rate 20 12 Blood Pressure 86/62 L Pulse Oximetry 95 96 03/08/18 23:49 03/09/18 00:00 03/09/18 02:00 Temperature 97.9 F Pulse Rate 101 H 104 H Respiratory Rate 20 Blood Pressure 88/62 L Pulse Oximetry 94 L 95 03/09/18 03:39 03/09/18 04:00 03/09/18 06:00 Temperature 98.1 F Pulse Rate 101 H 100 H 101 H Respiratory Rate 23 20 Blood Pressure 85/63 L Pulse Oximetry 96 96 03/09/18 07:43 Temperature Pulse Rate 101 H Respiratory Rate 22 Blood Pressure Pulse Oximetry 96 Intake & Output 03/08/18 03/09/18 03/09/18 18:59 06:59 18:59 Intake Total 1150 / 1150 900 / 900 400 / 400 Output Total 500 / 500 900 / 900 Balance 650 / 650 0 / 0 400 / 400 Weight 59.8 kg Intake: IV 500 / 500 300 / 300 400 / 400 Flexbumin 25% Inj 100 ML @ 60 100 / 100 100 / 100 mls/hr IV.SIG Q12H BRENDA Rx#: [id number] Levophed-Dextrose 4 mg/250 ml 250 / 250 250 / 250 250 / 250 Drip 4 mg In 250 ml @ 2 MCG/MIN 7.5 mls/hr IV.SIG TITRATE PRN Rx#:[id number] Zosyn 3.375 GM Premix 50 ML @ 150 / 150 50 / 50 50 / 50 100 mls/hr IV.SIG Q6H BRENDA Rx#: [id number] Oral 650 / 650 600 / 600 Output: Urine 500 / 500 900 / 900 Other: Date of Last Bowel Movement 03/08/18 03/08/18 # Bowel Movements 1 1 Result Diagrams: 03/09/18 09:06 03/09/18 08:19 Other Results: Microbiology 03/07/18 16:04 Fluid - Pleural fluid Gram Stain - Final 03/07/18 16:04 Fluid - Pleural fluid Body Fluid Culture - Preliminary No growth in 24 hours 03/07/18 17:48 Catheterized Urine Urine Culture - Preliminary No growth in 24 hours 03/07/18 16:04 Fluid - Pleural fluid Acid Fast Bacilli Smear - Final No acid fast bacilli seen 03/07/18 16:04 Fluid - Pleural fluid Fungal Smear - Final No fungal elements seen 03/02/18 16:55 Stool Giardia Antigen (SARAHI) - Final Negative - No Giardia Antigen detected In selected cases of patients with a history of immunosuppression or foreign travel, a full ova and parasites examination may be desired. Contact the microbiology lab if full workup is indicated and subit another specimen for testing. 03/02/18 16:55 Stool Enteric Pathogens (PCR) - Final No enteric pathogens detected by PCR (No Salmonella sp., Shigella sp., Campylobacter sp., Yersinia enterocolitica, Vibrio sp., Norovirus, or EHEC (Shiga Toxin 1 or Shiga Toxin 2) detected. 03/02/18 11:35 Clean Catch Urine Urine Culture - Final 50-100,000 cfu/mL mixed tierney (probable contaminants ) 03/02/18 16:55 Stool Stool for WBCs - Final No WBC's seen Imaging: Abdomen/Pelvis CT 03/02/18 12:17 CONCLUSION: 1. Wall thickening of the proximal half of the transverse colon with a questionable submucosal edema and mild adjacent inflammation could represent a colitis. There is trace free fluid in the pelvis. 2. No other acute finding is identified and there are no lymphadenopathy. There is stable splenomegaly. 3. Nonacute findings include hepatomegaly with steatosis and severe atherosclerotic disease. Abdomen MRI 03/05/18 00:00 CONCLUSION: 1. 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 Celiac artery and YARI are patent. Typically, stenosis of a single mesenteric artery should not cause significant mesenteric ischemia. However, in a rare but appropriate clinical setting this may be symptomatic. 2. Diffuse atherosclerotic disease in the abdominal aorta. 3. Small bilateral pleural effusions. 4. Hepatic steatosis. Chest X-Ray 03/06/18 22:26 CONCLUSION: Diffuse increased interstitial markings likely related to edema. These are new. Abdomen X-Ray 03/06/18 23:18 CONCLUSION: Benign-appearing abdomen. 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 Abdomen/Pelvis CT 03/07/18 00:00 CONCLUSION: 1. Bilateral pleural effusions being moderate on the right and mild on the left with accompanying atelectasis or consolidation. 2. Hepatosplenomegaly. There is hepatic steatosis. 3. Small nonobstructing renal stones. 4. Suspected vicarious excretion of contrast within the gallbladder versus milk of calcium. 5. The prominence of the wall of the ascending colon and proximal transverse colon is thought to be secondary to fat deposition. Significant surrounding inflammatory change is not seen. 6. Diffuse subcutaneous edema. Chest CTA 03/07/18 00:00 CONCLUSION: 1. Pulmonary edema and moderate bilateral pleural effusions with dependent/ compressive atelectasis. 2. No pulmonary embolus. 3. Coronary artery calcification. Chest X-Ray 03/07/18 11:37 CONCLUSION: 1. Small left pleural effusion with associated left lower lobe airspace consolidation. 2. Persistent mild positive fluid balance. Chest X-Ray 03/07/18 15:59 CONCLUSION: Worsening pulmonary edema. Chest X-Ray 03/08/18 06:00 CONCLUSION: Improving pulmonary edema. Objective Remarks: GENERAL: 58-year-old female resting in bed in no acute distress SKIN: Warm and dry. Tattoo right lower extremely HEAD: Atraumatic. Normocephalic. EYES: Pupils equal and round. No scleral icterus. No injection or drainage. ENT: No nasal bleeding or discharge. Mucous membranes pink and moist. NECK: Trachea midline. No JVD. CARDIOVASCULAR: Regular rate and rhythm. S1, S2. No S4. RESPIRATORY: No accessory muscle use. Clear to auscultation. Breath sounds equal bilaterally. GASTROINTESTINAL: Abdomen soft, non-tender, nondistended. Hepatic and splenic margins not palpable. MUSCULOSKELETAL: Extremities without clubbing, cyanosis, or edema. No obvious deformities. NEUROLOGICAL: Awake and alert. No obvious cranial nerve deficits. Motor grossly within normal limits. Five out of 5 muscle strength in the arms and legs. Normal speech. PSYCHIATRIC: Appropriate mood and affect; insight and judgment normal. Assessment and Plan - Assessment and Plan Plan: NEUROLOGY/PSYCH: Continue monitor neurological function, Temazepam 15 mg at night as needed for insomnia Morphine sulfate 2 mg IV every 4 hours as needed for pain PULMONOLOGY Acute hypoxic respiratory failure secondary to pulmonary edema, pleural effusion L>R Pleural effusion Nasal cannula. Wean O2 to maintain O2 sats greater than 92% Status post thoracentesis by Dr. Regina Thompson 03/07 Albuterol/ipratropium aerosols every 6 hours and albuterol aerosols every 2 hours as needed CARDIOLOGY Cardiogenic shock Acute systolic heart failure Probable Acute coronary syndrome CHF exacerbation Cardiomyopathy Elevated troponin Elevated BNP Norepinephrine currently at 8 mcg/min as needed for blood pressure management maintain map greater than 65 Cardiology consulted for probable acute coronary syndrome. May need cardiac catheterization 2D Echo EF 30-35%03/07. Previous echo prior to CHOP regimen showed normal ejection fraction Cardiomyopathy may be secondary to Adriamycin toxicity, but need to rule out coronary artery disease Troponin have plateaued with troponin at 0.21 Cardiology consult appreciated. Will need workup once hemodynamic stable Serial EKGs were performed and reviewed by myself which did indicate acute changes with Q waves in inferior leads Unable to use beta maurizio, SHAHBAZ inhibitor, nitroglycerin due to hypotension. Previously on losartan Lipid panel shows rather significant abnormalities with triglycerides greater than 520, unable to calculate LDL. Resume atorvastatin 20 mg daily and fenofibrate 145 mg daily GASTROENTEROLOGY Colitis, ? ischemic GI bleed External hemorrhoid 1800 ADA diet with Glucerna shakes twice daily GI is following the patient and has undergone upper and lower endoscopies which does indicate colitis, distal esophagitis, external hemorrhoids. 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 injury Unclear etiology, could be secondary to poor perfusion Continue monitor renal functions, bicarb, anion gap INFECTIOUS DISEASE Colitis, appears to be not infective C. difficile, enteric pathogens, Giardia, stool for WBCs all appear to be negative Urine culture shows 50 - 100,000 of mixed tierney probable contaminants Patient currently on piperacillin/tazobactam and metronidazole, consider discontinuing antibiotics secondary to no infectious process has been identified ENDOCRINOLOGY Diabetes mellitus Elevated TSH Continue Accu-Cheks with sliding scale insulin/aspart. On the metformin thousand grams twice daily at home TSH 6.89. Low free T3. Normal free T4. Start levothyroxine 25 mcg daily. HEMATOLOGY History of large B cell lymphoma macrocytic anemia Thrombocytopenia GI bleed with bleeding external hemorrhoid Status post transfusion 1 unit of packed red blood cells, hemoglobin has remained stable Hematology is following the patient PROPHYLAXIS DVT prevention with sequential compression devices, avoid chemical prophylaxis secondary to GI bleed GI protection with Protonix daily LINES [employer] has been accessed CODE STATUS Full code Level 2 follow-up Code Status: Full code
[2018-03-09 10:07] LABS: Platelet Estimate Normal (Normal)
--- NOTE | 2018-03-09 11:19 | P.PNONC ---
Subjective Interval history: Afebrile Patient remains on 8 mcg of Levophed Reports she is not feeling well today Still having some right-sided abdominal pain No diarrhea Objective Vital Signs/Intake & Output: Vital Signs 03/08/18 11:48 03/08/18 11:53 03/08/18 12:00 Temperature Pulse Rate 101 H 99 H 104 H Respiratory Rate 49 H 42 H 30 H Blood Pressure 80/53 L 71/52 L 68/48 L Pulse Oximetry 96 96 96 03/08/18 12:11 03/08/18 12:30 03/08/18 13:01 Temperature Pulse Rate 99 H 97 H 101 H Respiratory Rate 35 H 41 H 92 H Blood Pressure 72/52 L 78/51 L 75/57 L Pulse Oximetry 95 95 95 03/08/18 13:05 03/08/18 13:30 03/08/18 14:00 Temperature Pulse Rate 104 H 97 H 98 H Respiratory Rate 136 H 30 H 19 Blood Pressure 100/68 80/57 L 79/61 L Pulse Oximetry 95 94 L 95 03/08/18 14:30 03/08/18 14:54 03/08/18 15:00 Temperature Pulse Rate 99 H 100 H 100 H Respiratory Rate 31 H 28 H 7 L Blood Pressure 79/59 L 80/54 L 78/56 L Pulse Oximetry 95 96 95 03/08/18 15:23 03/08/18 15:30 03/08/18 15:49 Temperature Pulse Rate 99 H 106 H 102 H Respiratory Rate 26 H 135 H 18 Blood Pressure 75/56 L 75/56 L Pulse Oximetry 94 L 96 03/08/18 16:00 03/08/18 16:01 03/08/18 16:17 Temperature 98.2 F Pulse Rate 102 H 100 H 100 H Respiratory Rate 17 22 Blood Pressure 77/51 L 74/56 L Pulse Oximetry 97 96 95 03/08/18 18:00 03/08/18 19:00 03/08/18 20:00 Temperature 98.8 F Pulse Rate 100 H 97 H 97 H Respiratory Rate 20 Blood Pressure 86/62 L Pulse Oximetry 95 03/08/18 21:51 03/08/18 22:00 03/08/18 23:49 Temperature Pulse Rate 98 H 100 H Respiratory Rate 12 Blood Pressure Pulse Oximetry 96 94 L 03/09/18 00:00 03/09/18 02:00 03/09/18 03:39 Temperature 97.9 F Pulse Rate 101 H 104 H 101 H Respiratory Rate 20 23 Blood Pressure 88/62 L Pulse Oximetry 95 96 03/09/18 04:00 03/09/18 06:00 03/09/18 07:43 Temperature 98.1 F Pulse Rate 100 H 101 H 101 H Respiratory Rate 20 22 Blood Pressure 85/63 L Pulse Oximetry 96 96 03/09/18 08:00 03/09/18 10:00 Temperature 98.0 F Pulse Rate 104 H 107 H Respiratory Rate 41 H Blood Pressure 87/67 L Pulse Oximetry 95 Intake & Output 03/08/18 03/09/18 03/09/18 18:59 06:59 18:59 Intake Total 1150 / 1150 900 / 900 400 / 400 Output Total 500 / 500 900 / 900 Balance 650 / 650 0 / 0 400 / 400 Weight 131 lb 13.383 oz Intake: IV 500 / 500 300 / 300 400 / 400 Flexbumin 25% Inj 100 ML @ 60 100 / 100 100 / 100 mls/hr IV.SIG Q12H [facility] Rx#: [id number] Levophed-Dextrose 4 mg/250 ml 250 / 250 250 / 250 250 / 250 Drip 4 mg In 250 ml @ 2 MCG/MIN 7.5 mls/hr IV.SIG TITRATE PRN Rx#:[id number] Zosyn 3.375 GM Premix 50 ML @ 150 / 150 50 / 50 50 / 50 100 mls/hr IV.SIG Q6H [facility] Rx#: [id number] Oral 650 / 650 600 / 600 Output: Urine 500 / 500 900 / 900 Other: Date of Last Bowel Movement 03/08/18 03/08/18 03/09/18 # Bowel Movements 1 1 Result Diagrams: 03/09/18 09:06 03/09/18 08:19 Laboratory Results: Laboratory Results - last 24 hr 03/04/18 03/08/18 03/08/18 15:00 09:00 11:55 WBC RBC Hgb Hct MCV MCH MCHC RDW Plt Count MPV Prelim Diff (Auto) Neut % (Auto) Lymph % (Auto) [place] % (Auto) Eos % (Auto) Baso % (Auto) Neut # (Auto) Lymph # (Auto) [place] # (Auto) Eos # (Auto) Baso # (Auto) WBC Differential Diff Scan Differential Comment Platelet Estimate Platelet Morphology Sodium Potassium Chloride Carbon Dioxide Anion Gap BUN Creatinine Estimated GFR POC Glucose 176 H Fasting Glucose Lactic Acid Calcium Phosphorus Magnesium St C. diff Tox Epid 027 Invalid H Celiac Disease Interp C. difficile Tox (PCR) Invalid H 03/08/18 03/08/18 03/09/18 16:28 19:59 07:51 WBC RBC Hgb Hct MCV MCH MCHC RDW Plt Count MPV Prelim Diff (Auto) Neut % (Auto) Lymph % (Auto) [place] % (Auto) Eos % (Auto) Baso % (Auto) Neut # (Auto) Lymph # (Auto) [place] # (Auto) Eos # (Auto) Baso # (Auto) WBC Differential Diff Scan Differential Comment Platelet Estimate Platelet Morphology Sodium Potassium Chloride Carbon Dioxide Anion Gap BUN Creatinine Estimated GFR POC Glucose 134 H 228 H 169 H Fasting Glucose Lactic Acid Calcium Phosphorus Magnesium St C. diff Tox Epid 027 Celiac Disease Interp C. difficile Tox (PCR) 03/09/18 03/09/18 03/09/18 08:19 09:06 09:06 WBC 7.0 RBC 2.62 L Hgb 9.6 L Hct 29.0 L MCV 110.5 H MCH 36.5 H MCHC 33.0 RDW 15.3 Plt Count 168 D MPV 9.5 Prelim Diff (Auto) Slide review pending Neut % (Auto) 88.0 H Lymph % (Auto) 3.9 L [place] % (Auto) 7.7 Eos % (Auto) 0.1 Baso % (Auto) 0.3 Neut # (Auto) 6.1 Lymph # (Auto) 0.3 L [place] # (Auto) 0.5 Eos # (Auto) 0.0 Baso # (Auto) 0.0 WBC Differential . Diff Scan Auto diff confirmed Differential Comment . Platelet Estimate Normal Platelet Morphology Enlarged H Sodium 140 Potassium 4.6 D Chloride 105 Carbon Dioxide 20.5 L Anion Gap 15 BUN 13 Creatinine 0.74 Estimated GFR 81 L POC Glucose Fasting Glucose 179 H Lactic Acid 3.2 H Calcium 7.9 L Phosphorus 3.[address] C. diff Tox Epid 027 Celiac Disease Interp C. difficile Tox (PCR) Culture Results: Microbiology 03/07/18 17:48 Urine Culture - Final Catheterized Urine No growth in 48 hours 03/07/18 16:04 Gram Stain - Final Fluid - Pleural fluid Body Fluid Culture - Preliminary No growth in 24 hours 03/07/18 16:04 Acid Fast Bacilli Smear - Final Fluid - Pleural fluid No acid fast bacilli seen 03/07/18 16:04 Fungal Smear - Final Fluid - Pleural fluid No fungal elements seen Medications: Active Medications Generic Name Dose Route Start Last Admin Trade Name Freq PRN Reason Stop Dose Admin Albuterol 1 ampul 03/07/18 22:00 03/09/18 07:42 Duoneb Neb (Stewart) NEB 1 ampul Q6HR NEB [facility] Administration Budesonide/Formoterol Fumarate 2 puff 03/07/18 21:00 03/09/18 08:32 Symbicort 160/4.5 Mcg Inh INH 2 puff BID [facility] Administration Cholestyramine Resin 4 gm 03/05/18 21:00 03/09/18 08:32 Questran 4 Gm Pkt PO 4 gm BID [facility] Administration Diphenoxylate HCl/Atropine 1 tab 03/06/18 18:00 03/09/18 05:11 Lomotil PO Not Given Q6HR [facility] Sodium Chloride 1,000 mls @ 0 mls/hr 03/02/18 12:15 03/03/18 02:08 Ns Inj IV.SIG Infused BOLUS [facility] Infusion Wide Open Sodium Chloride 1,000 mls @ 0 mls/hr 03/03/18 01:58 03/03/18 14:43 Ns Inj IV.SIG Infused BOLUS [facility] Infusion Wide Open Magnesium Sulfate Inj 2 gm/ 100 mls @ 50 mls/hr 03/03/18 13:19 03/04/18 11:00 Sodium Chloride IV.SIG Infused UNSCH PRN Infusion For Magnesium 1.2 - 1.6 mg/dL Potassium Chloride 40 meq in 100 mls @ 25 mls/hr 03/03/18 13:19 03/08/18 13: 03 Kcl 40 Meq Premix Inj IV.SIG 25 mls/hr UNSCH PRN Administration For Potassium 3.3 - 3.5 mEq/L Potassium Chloride 20 meq in 100 mls @ 50 mls/hr 03/03/18 13:19 03/06/18 13: 22 Kcl 20 Meq Premix Inj IV.SIG Infused Q2H PRN Infusion For Potassium 2.8 - 3.2 mEq/L Magnesium Sulfate Inj 4 gm/ 100 mls @ 50 mls/hr 03/03/18 13:19 03/07/18 03:38 Sodium Chloride IV.SIG Infused UNSCH PRN Infusion For Magnesium 0.9 - 1.1 mg/dL Sodium Chloride 1,000 mls @ 0 mls/hr 03/03/18 22:38 03/04/18 07:00 Ns Inj IV.SIG Infused BOLUS [facility] Infusion Wide Open Norepinephrine Bitartrate 4 mg in 250 mls @ 7.5 mls/hr 03/07/18 11:37 07:58 Levophed-Dextrose 4 Mg/250 Ml Drip IV.SIG 8 mcg/min TITRATE PRN 30 mls/hr Per Protocol Administration Protocol 2 MCG/MIN Piperacillin/Tazobactam/Dextrose 50 mls @ 100 mls/hr 03/07/18 18:00 03/09/18 07:17 Zosyn 3.375 Gm Premix IV.SIG Infused Q6H [facility] Infusion Albumin Human 100 mls @ 60 mls/hr 03/07/18 17:00 03/09/18 07:18 Flexbumin 25% Inj IV.SIG Infused Q12H [facility] Infusion Insulin Aspart 0 unit 03/02/18 17:00 03/09/18 08:28 Novolog Insulin Correctional Sugar Inj SQ 1 unit ACHS [facility] Administration Protocol Lactobacillus Acidophilus 1 tab 03/02/18 18:00 03/09/18 08:32 Lactinex PO 1 tab TID [facility] Administration Methylprednisolone Sodium Succinate 60 mg 03/07/18 16:30 03/09/18 05:09 Solumedrol Inj IV.PUSH 60 mg Q12H [facility] Administration Metronidazole 500 mg 03/08/18 12:00 03/09/18 05:10 Flagyl PO 500 mg Q8HR [facility] Administration Morphine Sulfate 2 mg 03/03/18 11:25 03/08/18 14:58 Morphine Inj IV.PUSH 2 mg Q4H PRN Administration PAIN SCALE 1 TO 10 Pantoprazole Sodium 40 mg 03/07/18 16:30 03/09/18 08:29 Protonix PO 40 mg DAILY [facility] Administration Potassium Phosphate 2,000 mg 03/03/18 13:19 03/03/18 14:17 K-Phos Original PO 2,000 mg Q4H PRN Administration Phosphorus Less Than 2.5 mg/dL Promethazine HCl 25 mg 03/03/18 11:23 03/09/18 08:32 Phenergan PO 25 mg Q4H PRN Administration NAUSEA OR VOMITING Sodium Chloride 2 ml 03/02/18 10:14 03/07/18 01:40 Ns Flush IV.FLUSH 2 ml PRN PRN Administration FLUSH AFTER USING IV ACCESS Temazepam 15 mg 03/06/18 12:49 03/08/18 23:05 Restoril PO 15 mg HS PRN Administration Insomnia Trimethobenzamide HCl 200 mg 03/03/18 04:53 03/06/18 09:41 Tigan Ing IM 200 mg Q6H PRN Administration NAUSEA OR VOMITING Objective Remarks: GENERAL: Chronically ill-appearing older female resting in bed in no obvious distress SKIN: Warm and dry. HEAD: Normocephalic. EYES: No scleral icterus. No injection or drainage. NECK: Supple, trachea midline. No JVD or lymphadenopathy. CARDIOVASCULAR: Regular rate and rhythm without murmurs. RESPIRATORY: Breath sounds equal bilaterally. No accessory muscle use. GASTROINTESTINAL: + Hepatomegaly; otherwise soft. Mildly tender on the right. EXTREMITIES: No cyanosis, or edema. MUSCULOSKELETAL: Adequate muscle tone. NEUROLOGICAL: No obvious focal deficit. Awake, alert, and oriented x3. 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 Her last cycle of chemotherapy was July 2016. She is admitted with worsening diarrhea over the last several months. CT scan of the abdomen shows area of colonic inflammation. 1. It appears as though they have had to increase her vasopressive medication with Levophed 2. No evidence of recurrence of lymphoma 3. No need for blood transfusion today. 4. Supportive care - Attending Statement The exam, history, and the medical decision-making described in the above note were completed with the assistance of the mid-level provider. I reviewed and agree with the findings presented. I attest that I had a [id number] encounter with the patient on the same day, and personally performed and documented my assessment and findings in the medical record. Offers no new complaints. Continue current support. No evidence recurrence of previous lymphoma. (1) NHL (non-Hodgkin's lymphoma) Qualifiers: Non-Hodgkin lymphoma type: B-cell B-cell lymphoma type: diffuse large B-cell Lymphoma site: intra-abdominal nodes Qualified Code(s): C83.33 - Diffuse large B-cell lymphoma, intra-abdominal lymph nodes
--- NOTE | 2018-03-09 14:12 | P.PNCA ---
Subjective Interval history: no chest pain, no arrhythmia, no dyspnea at rest. Physical Exam Vital signs: Vital Signs 03/08/18 14:30 03/08/18 14:54 03/08/18 15:00 Temperature Pulse Rate 99 H 100 H 100 H Respiratory Rate 31 H 28 H 7 L Blood Pressure 79/59 L 80/54 L 78/56 L Pulse Oximetry 95 96 95 03/08/18 15:23 03/08/18 15:30 03/08/18 15:49 Temperature Pulse Rate 99 H 106 H 102 H Respiratory Rate 26 H 135 H 18 Blood Pressure 75/56 L 75/56 L Pulse Oximetry 94 L 96 03/08/18 16:00 03/08/18 16:01 03/08/18 16:17 Temperature 98.2 F Pulse Rate 102 H 100 H 100 H Respiratory Rate 17 22 Blood Pressure 77/51 L 74/56 L Pulse Oximetry 97 96 95 03/08/18 18:00 03/08/18 19:00 03/08/18 20:00 Temperature 98.8 F Pulse Rate 100 H 97 H 97 H Respiratory Rate 20 Blood Pressure 86/62 L Pulse Oximetry 95 03/08/18 21:51 03/08/18 22:00 03/08/18 23:49 Temperature Pulse Rate 98 H 100 H Respiratory Rate 12 Blood Pressure Pulse Oximetry 96 94 L 03/09/18 00:00 03/09/18 02:00 03/09/18 03:39 Temperature 97.9 F Pulse Rate 101 H 104 H 101 H Respiratory Rate 20 23 Blood Pressure 88/62 L Pulse Oximetry 95 96 03/09/18 04:00 03/09/18 06:00 03/09/18 07:43 Temperature 98.1 F Pulse Rate 100 H 101 H 101 H Respiratory Rate 20 22 Blood Pressure 85/63 L Pulse Oximetry 96 96 03/09/18 08:00 03/09/18 10:00 03/09/18 12:00 Temperature 98.0 F 97.9 F Pulse Rate 104 H 107 H 112 H Respiratory Rate 41 H Blood Pressure 87/67 L 86/59 L Pulse Oximetry 95 94 L Intake & Output 03/08/18 03/09/18 03/09/18 18:59 06:59 18:59 Intake Total 1150 / 1150 900 / 900 450 / 450 Output Total 500 / 500 900 / 900 Balance 650 / 650 0 / 0 450 / 450 Weight 59.8 kg Intake: IV 500 / 500 300 / 300 450 / 450 Flexbumin 25% Inj 100 ML @ 60 100 / 100 100 / 100 mls/hr IV.SIG Q12H [facility] Rx#: [id number] Levophed-Dextrose 4 mg/250 ml 250 / 250 250 / 250 250 / 250 Drip 4 mg In 250 ml @ 2 MCG/MIN 7.5 mls/hr IV.SIG TITRATE PRN Rx#:[id number] Zosyn 3.375 GM Premix 50 ML @ 150 / 150 50 / 50 100 / 100 100 mls/hr IV.SIG Q6H [facility] Rx#: [id number] Oral 650 / 650 600 / 600 Output: Urine 500 / 500 900 / 900 Other: Date of Last Bowel Movement 03/08/18 03/08/18 03/09/18 # Bowel Movements 1 1 - Constitutional no acute distress - Routine HEENT Exam Head: Present: normocephalic, atraumatic Eye: Present: EOMI, PERRL, normal accommodation ENT: Present: mucous membranes moist - Routine Neck Exam Present: supple, full ROM, normal carotid upstroke. Absent: JVD, carotid bruit - Routine Respiratory Exam Present: CTA bilaterally - Routine Cardiovascular Exam Present: RRR, S1, S2, murmur (2/6 systolic murmur apex) - Routine Abdominal Exam Present: soft, normoactive bowel sounds - Routine Extremities Exam Present: full ROM, normal capillary refill - Routine Skin Exam Present: intact - Routine Neurological Exam Present: alert, oriented X3 - Detailed Neurological Exam: Coma Scale Eye Opening: Spontaneous - Routine Psychiatric Exam Present: normal affect, normal thought process - Urinary Catheter Management Female External Cath placed during this visit: yes Reason for continuing: Hourly intake/output Insertion date: 03/07/18 Insertion time: 17:00 Indwelling Urethral Catheter Cath placed during this visit: yes, but has since been removed by the nurse Reason for continuing: Decision to DC catheter Removal date: 03/08/18 Removal time: 09:25 Assessment and Plan - Assessment (1) Systolic and diastolic CHF, acute Code(s): I50.41 - Acute combined systolic (congestive) and diastolic (congestive ) heart failure Status: Acute (2) GIB (gastrointestinal bleeding) Code(s): K92.2 - Gastrointestinal hemorrhage, unspecified Status: Acute (3) Hypotension Code(s): I95.9 - Hypotension, unspecified Status: Acute - Plan 58-year-old female with no prior cardiac history being seen for new onset cardiomyopathy. The patient presented 03/02 with nausea, vomiting, diarrhea. She was found to have anemia and GI bleeding, status post clipping of bleeding hemorrhoid, status post transfusion 1 unit PRBCs 03/04. Patient had respiratory distress 03/07, found to have moderate pleural effusions and pulmonary edema. She had associated chest pain at that time. EKG shows possible new inferoseptal Q waves compared to admission. Echocardiogram shows new cardiomyopathy with EF 3035%. Patient had thoracentesis yesterday with 500 mL removed. She is on Lasix 20 mg IV twice daily and put out 3700 mL overnight. She reports her breathing is much better today and chest x-ray showing improved pulmonary edema. She has had constant chest discomfort since receiving breathing treatment yesterday. SBP is currently 80 on Levophed. New-onset cardiomyopathy: Unclear etiology. Continue diuresis as tolerated for CHF. Unable to do ACEI/BB with hypotension. Consider ischemic workup after recovery, not currently with hypotension and anemia. stable from CV standpoint, still tachy and hypotensive. I am seeing patient for Dr. Kayla Pickett until 03/12/18.
[2018-03-09] MEDS: Morphine Inj 4 MG/ML Vial IV.PUSH PRN ×2 (16:03→23:53)
[2018-03-09] MEDS ORDERED: Etomidate Inj 40 MG/20 ML Vial IV.PUSH ONE (23:59)
[2018-03-10] MEDS ORDERED: Succinylcholine Inj 200 MG/10 ML Vial ONE
[2018-03-10] MEDS ORDERED: HYDROmorphone PF Inj 2 MG/ML Vial IV.PUSH ONE (00:28)
[2018-03-10 00:32] LABS: Baso % (Auto) 0.1 % (0.0-2.0); Hematocrit 30.8 % (35.0-46.0); Hemoglobin 9.9 gm/dL (11.6-15.3); Lymph # (Auto) 0.8 th/mm3 (1.0-4.8); Lymph % (Auto) 8.6 % (9.0-44.0); Mean Corpuscular Hemoglobin 36.8 pg (27.0-34.0); Mean Corpuscular Volume 114.8 fL (80.0-100.0); Mean Platelet Volume 10.3 fL (7.0-11.0); Mono # (Auto) 0.6 th/mm3 (0.0-0.9); Mono % (Auto) 6.9 % (0.0-8.0); Neut # (Auto) 7.5 th/mm3 (1.8-7.7); Neut % (Auto) 84.4 % (16.0-70.0); Platelet Count 195 th/mm3 (150-450); Red Blood Count 2.69 mil/mm3 (4.00-5.30); Red Cell Distribution Width 16.5 % (11.6-17.2); White Blood Count 8.8 th/mm3 (4.0-11.0)
[2018-03-10 00:41] LABS: Activated Partial Thrombo Time 33.8 sec (24.3-30.1)
[2018-03-10 00:44] LABS: ABG Base Excess -20.4 mmol/L (-2-2); ABG PCO2 19 mmHg (38-42); ABG PO2 87 mmHG (61-120)
[2018-03-10 00:50] LABS: Alanine Aminotransferase 34 U/L (10-53); Albumin 3.3 g/dL (3.4-5.0); Alkaline Phosphatase 132 U/L (45-117); Amylase 15 U/L (25-115); Anion Gap 23 meq/L (5-15); Aspartate Aminotransferase 40 U/L (15-37); Blood Urea Nitrogen 17 mg/dL (7-18); Carbon Dioxide 13.1 meq/L (21.0-32.0); Chloride 104 meq/L (98-107); Creatine Kinase 126 U/L (26-192); Glomerular Filtration Rate 45 mL/min (>89); Glucose,Random 219 mg/dL (74-106); Lipase 147 U/L (73-393); Magnesium 2.2 mg/dL (1.5-2.5); Phosphorus 6.4 mg/dL (2.5-4.9); Potassium 5.8 meq/L (3.5-5.1); Sodium 140 meq/L (136-145); Total Protein 6.3 g/dL (6.4-8.2); Troponin I 0.08 ng/mL (0.02-0.05)
--- NOTE | 2018-03-10 01:18 | CT ---
EXAM DATE: 03/10/2018 1:10 AM EDT AGE/SEX: 58 years / Female INDICATIONS: Abdomen pain. CLINICAL DATA: This is the patient's initial encounter. Patient reports that signs and symptoms have been present for 1 day and indicates a pain score of 10/10. MEDICAL/SURGICAL HISTORY: Diabetes. Lymphoma. Appendectomy. Hysterectomy. RADIATION DOSE: 11.54 CTDI (mGy) COMPARISON: [facility] [place], CT ABDOMEN & PELVIS W/O CONTRAST, 03/07/2018. . TECHNIQUE: Multiple contiguous axial images were obtained through the abdomen. Images were obtained using multiple row detector helical technique. Using automated exposure control and adjustment of the mA and/or kV according to patient size, radiation dose was kept as low as reasonably achievable to o btain optimal diagnostic quality images. DICOM format image data is available electronically for rev iew and comparison. FINDINGS: Lower Lungs: Moderate sized bilateral pleural effusions. The right is larger than the left. These are stable from the prior study. Tiny hiatal hernia.. Liver: Mild lobulation to the contour of the liver. The liver is also enlarged. Gallbladder is unrema rkable. No mass. Small volume ascitic fluid.. Spleen: Homogeneous density without enlargement. Pancreas: Unremarkable without mass or calcification. Kidneys: Normal in size and shape. No evidence of mass or hydronephrosis. Adrenal Glands: Unremarkable. Aorta: Diffuse calcified atherosclerotic plaque without aneurysmal dilation. Bowel/Mesentery: There is some fatty infiltration of the wall of the ascending colon. The bowel loop s are grossly unremarkable. The cecum and sigmoid colon have a normal configuration. Abdominal Wall: Intact. Retroperitoneum: No evidence of adenopathy in the retrocrural, para-aortic, or deep pelvic regions. Bladder: Contours are smooth. Reproductive Organs: No abnormal masses or calcifications seen. Inguinal: The inguinal region is unremarkable without evidence of adenopathy. Bony Structures: Unremarkable. CONCLUSION: 1. Unchanged exam. Bilateral pleural effusions and associated atelectasis. 2. Hepatomegaly with some lobulation to the contour and small volume ascites. This raises concern fo r possible cirrhosis. 3. Coronary artery atherosclerotic calcifications. Electronically signed by: Watson Mayes MD 03/10/2018 1:16 AM EDT
[2018-03-10] MEDS: Sodium Bicarbonate 8.4% Inj 150 MEQ in Sodium Chloride 0.45 % Inj 850 ML IV.CONT SCH ×3 (01:30→18:30)
[2018-03-10] MEDS: Hydrocortisone/Pramoxine Foam 10 GM Can RECTAL SCH ×3 (01:32→18:03)
[2018-03-10] MEDS: Piperacil/Tazo 3.375 GM Premix 50 ML IV.SIG SCH ×4 (01:35→17:48)
[2018-03-10] MEDS: metroNIDAZOLE 500 MG Tablet PO SCH ×4 (01:38→22:50)
[2018-03-10] MEDS: Budesonide-Formoterol 160/4.5 MCG 6 GM Inhaler INH SCH ×3 (01:38→21:53)
[2018-03-10] MEDS: Diphenoxylate/Atropine 2.5/0.025 MG Tablet PO SCH ×4 (01:38→20:50)
[2018-03-10] MEDS: Insulin NovoLOG Aspart Correctional Sugar Inj SQ SCH ×5 (04:05→21:29)
[2018-03-10] MEDS: Albumin Human 25% Inj 100 ML IV.SIG SCH (04:42)
[2018-03-10] MEDS: MethylPREDNISolone Sod Succinate Inj 125 MG/2 ML Vial IV.PUSH SCH ×2 (06:04→16:05)
[2018-03-10 07:34] LABS: VBG Base Excess -14.1 mmol/L (-2-2); VBG Blood Gas Oxygen Content 2.1 Vol % (9.0-17.0); VBG PCO2 32 mmHG (44-48); VBG PH 7.21 (7.360-7.400); VBG PO2 21 mmHG (35-40)
[2018-03-10] MEDS ORDERED: Milrinone Inj 20 MG in Sodium Chlor 0.9% Inj 80 ML IV.CONT STA (07:37)
--- NOTE | 2018-03-10 07:44 | P.PNCC ---
Subjective Subjective Remarks/Hospital Course: 58-year-old female with known history of hyperlipidemia, diabetes, gastroesophageal reflux, history of lymphoma who presented to the hospital initially because of abdominal pain, chronic diarrhea, nausea vomiting for 4 months. Patient is being followed by Dr. Thomas in the outpatient setting for the chronic diarrhea. She underwent endoscopy on October this year there was a stricture found and was dilated at that time. Colonoscopy was scheduled for next Sunday however due to the patient's increased nausea vomiting diarrhea she came to the emergency department for evaluation. Patient had significant workup done in the hospital to include full stool evaluation for any infectious process which was unremarkable. CT scan did indicate signs of colitis in the proximal half of the transverse colon with submucosal edema. Patient was admitted the hospital and GI consultation was requested and performed. Patient did undergo colonoscopy which did indicate colitis, biopsies were taken. Patient did have internal hemorrhoids +1 external hemorrhoid that needed to be clipped. The patient's stay her hemoglobin was monitored and her hemoglobin did drop down to 7.8 and given that she had heme positive stools she is transfused 1 unit of packed red blood cells which her hemoglobin went back up to 10.1. Patient's hemoglobin has maintained stability since then. Patient was in the ICU secondary to continued hypotension secondary to hypovolemia from her nausea, vomiting, diarrhea. Patient was on electrolyte replacement protocol due to electrolyte loss from diarrhea. Patient was started on Questran and Lomotil with significant improvement. Patient was given multiple liters of fluid boluses as well as albumin infusions with improvement of her blood pressure. Patient does have history of chronic anemia which appears to be macrocytic. Hematology was consulted for further recommendations in reference to the patient's history of lymphoma, chronic anemia, pancytopenia. Patient was actually doing well and was transferred to the medical floor. However last evening the patient had acute onset of shortness of breath. There is no indication chest pain, abdominal pain, nausea, vomiting. Patient had significant workup performed which did indicate a acute troponin elevation, significant elevation of BNP. Chest x-ray did showed new findings of pulmonary edema, pulmonary angiogram was performed which did show significant pulmonary edema with bilateral pleural effusions. Patient was transferred back to the ICU due to acute hypoxic respiratory failure. Patient was requiring 6 L nasal cannula maintain O2 saturations greater than 92%. Upon review of the EKGs it does appears patient had acute changes with Q-wave presentation in the inferior leads. Due to the patient's respiratory failure, significant hypotension, acute myocardial infarction, acute cardiomyopathy, acute congestive heart failure critical care consultation was requested for management in the ICU. SUBJECTIVE: 03/09: Currently on norepinephrine drip at 8 mcg/min. Complaining of being slightly short of breath. Current x-ray revealed tiny pleural effusions. Abdominal pain control. 03/10: florid cardiogenic shock. lactate 13. altered. acutely agitated. going into respiratory failure. emergently intubated (see procedure note for details) . scvo2 from central line of 12%. transferred to CVICU. placed arterial, central lines and PA catheter. CI 1.6. 4mg bumex iv x 1 with bumex drip at 2mg/ hr. started milrinone and epinephrine drips. no adequate uop. Dr. Hewitt came in and emergently LHC: clean coronaries. placed impella. uop began to pickle solution maker after impella. right leg without dopplerable signals after impella, but cap refill present (sluggish, but present). patient still follows commands. lactate peaked at 19, now downtrending. fio2 90% on peep 10. pulmonary edema. Objective Vital Signs / I&O: Vital Signs 03/09/18 08:00 03/09/18 10:00 03/09/18 12:00 Temperature 36.7 C 36.6 C Pulse Rate 104 H 107 H 112 H Respiratory Rate 41 H Blood Pressure 87/67 L 86/59 L Pulse Oximetry 95 94 L 03/09/18 13:00 03/09/18 13:30 03/09/18 14:00 Temperature Pulse Rate 122 H 101 H 105 H Respiratory Rate 58 H 76 H 47 H Blood Pressure 86/61 L 87/65 L Pulse Oximetry 94 L 95 03/09/18 14:30 03/09/18 16:00 03/09/18 16:02 Temperature 36.7 C Pulse Rate 104 H 107 H Respiratory Rate 32 H 29 H Blood Pressure 84/63 L 82/61 L 82/61 L Pulse Oximetry 94 L 95 03/09/18 16:30 03/09/18 16:49 03/09/18 17:00 Temperature Pulse Rate 109 H 108 H 113 H Respiratory Rate 33 H 24 31 H Blood Pressure 87/65 L 88/69 L Pulse Oximetry 94 L 94 L 03/09/18 17:30 03/09/18 18:00 03/09/18 18:30 Temperature Pulse Rate 109 H 112 H 116 H Respiratory Rate 18 88 H 111 H Blood Pressure 99/58 L 86/56 L 83/60 L Pulse Oximetry 93 L 93 L 94 L 03/09/18 19:00 03/09/18 20:00 03/09/18 20:30 Temperature 36.9 C Pulse Rate 111 H 111 H 112 H Respiratory Rate 127 H 24 103 H Blood Pressure 82/66 L 87/68 L 86/67 L Pulse Oximetry 92 L 93 L 93 L 03/09/18 20:34 03/09/18 21:00 03/09/18 21:30 Temperature Pulse Rate 117 H 113 H 128 H Respiratory Rate 18 128 H 145 H Blood Pressure 88/66 L 85/55 L Pulse Oximetry 95 93 L 92 L 03/09/18 22:00 03/09/18 22:30 03/09/18 23:13 Temperature Pulse Rate 115 H 116 H Respiratory Rate 145 H 39 H Blood Pressure 89/55 L Pulse Oximetry 92 L 93 L 93 L 03/09/18 23:14 03/09/18 23:31 03/09/18 23:47 Temperature Pulse Rate 133 H 127 H 127 H Respiratory Rate 26 H 136 H 101 H Blood Pressure 87/53 L 86/58 L Pulse Oximetry 95 03/09/18 23:53 03/10/18 00:00 03/10/18 00:31 Temperature Pulse Rate 127 H 129 H 128 H Respiratory Rate 100 H 86 H 114 H Blood Pressure 74/34 L 71/43 L 133/61 Pulse Oximetry 92 L 03/10/18 01:16 03/10/18 02:00 03/10/18 02:08 Temperature Pulse Rate 124 H 118 H 119 H Respiratory Rate 131 H 100 H 107 H Blood Pressure 114/63 87/56 L Pulse Oximetry 03/10/18 04:00 03/10/18 06:00 Temperature 36.6 C Pulse Rate 112 H 118 H Respiratory Rate 22 Blood Pressure 122/60 Pulse Oximetry 93 L Intake & Output 03/09/18 03/10/18 03/10/18 18:59 06:59 18:59 Intake Total 1500 / 1500 1535 / 1535 150 / 150 Output Total 1000 / 1000 Balance 1500 / 1500 535 / 535 150 / 150 Weight 61 kg Intake: IV 850 / 850 50 / 50 150 / 150 Flexbumin 25% Inj 100 ML @ 60 200 / 200 100 / 100 mls/hr IV.SIG Q12H [facility] Rx#: [id number] Levophed-Dextrose 4 mg/250 ml 500 / 500 Drip 4 mg In 250 ml @ 2 MCG/MIN 7.5 mls/hr IV.SIG TITRATE PRN Rx#:[id number] Zosyn 3.375 GM Premix 50 ML @ 150 / 150 50 / 50 50 / 50 100 mls/hr IV.SIG Q6H [facility] Rx#: [id number] Oral 650 / 650 350 / 350 Other 1135 / 1135 Output: Urine 500 / 500 Pleural Fluid 500 / 500 Other: # Voids 4 4 # Incontinent Voids 1 Date of Last Bowel Movement 03/09/18 03/09/18 # Bowel Movements 1 Result Diagrams: 03/10/18 00:10 03/10/18 00:10 Objective Remarks: GENERAL: 58-year-old female in bed in severe distress this morning. SKIN: cool, poorly perfused, mottled. Tattoo right lower extremely HEAD: Atraumatic. Normocephalic. EYES: Pupils equal and round. No scleral icterus. No injection or drainage. ENT: No nasal bleeding or discharge. Mucous membranes pink and moist. NECK: Trachea midline. significant JVD+. CARDIOVASCULAR: tachycardic rate, regular rhythm. sinus. RESPIRATORY: tachypneic. labored. using accessory muscles. bilateral coarse rales. GASTROINTESTINAL: Abdomen soft, non-tender, nondistended. Hepatic and splenic margins not palpable. MUSCULOSKELETAL: Extremities without clubbing. mottled. 1+ edema. NEUROLOGICAL: RASS +1. agitated. follows commands. in distress. Assessment and Plan - Assessment and Plan Plan: Assessment: 58yF with new and worsening acute cardiogenic shock. now with need for mechanical support. unclear etiology, but non-ischemic in origin. could be Adriamycin induced cardiomyopathy, or new viral myocarditis, given colitis as her presenting symptom. will need to closely watch organ failure for recovery of other organs. critically ill today and in extremis. NEUROLOGY/PSYCH: Acute metabolic encephalopathy Continue monitor neurological function, Temazepam 15 mg at night as needed for insomnia Morphine sulfate 2 mg IV every 4 hours as needed for pain encephalopathy secondary to cardiogenic shock. frequent neuro checks PULMONOLOGY Acute hypoxic respiratory failure secondary to pulmonary edema, pleural effusion L>R Pleural effusion intubated 03/10 for acute decline. Status post thoracentesis by Dr. Nate Thompson 03/07 Albuterol/ipratropium aerosols every 6 hours and albuterol aerosols every 2 hours as needed vent bundle hob elevated no weaning of mechanical ventilation until shock improves CARDIOLOGY Cardiogenic shock- worsening Acute systolic heart failure exacerbation Non-ischemic Cardiomyopathy Elevated troponin Elevated BNP s/p Impella placement 03/10 epinephrine at 3 mcg/min milrinone at 0.375 mcg/kg/min levophed vasopressin s/p LHC 03/10 with clean coronaries EF now 20%. moderate RV dysfunction 2D Echo EF 30-35%03/07. Previous echo prior to CHOP regimen showed normal ejection fraction Cardiomyopathy may be secondary to Adriamycin toxicity Troponin have plateaued with troponin at 0.21 Unable to use beta maurizio, SHAHBAZ inhibitor, nitroglycerin due to hypotension. Previously on losartan Lipid panel shows rather significant abnormalities with triglycerides greater than 520, unable to calculate LDL. Resume atorvastatin 20 mg daily and fenofibrate 145 mg daily keep impella at full flow (3.7 LPM) keep PA catheter trend lactates keep bumex drip goal diuresis 2-4L/24h. watch cvp carefully: RV failure may ensue from LVAD do not want to over-diurese as this may cause suck-down of LVAD, but currently on 90% fio2 with pulmonary edema, so must pull fluid off. heparin drip GASTROENTEROLOGY Colitis, ? ischemic GI bleed External hemorrhoid Shock liver NPO with OGT. GI is following the patient and has undergone upper and lower endoscopies which does indicate colitis, distal esophagitis, external hemorrhoids. 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 difficile, enteric pathogens, Giardia, stool for WBCs all appear to be negative Urine culture shows 50 - 100,000 of mixed tierney probable contaminants Patient currently on piperacillin/tazobactam and metronidazole, ENDOCRINOLOGY Diabetes mellitus Elevated TSH Continue Accu-Cheks with sliding scale insulin/aspart. On the metformin thousand grams twice daily at home TSH 6.89. Low free T3. Normal free T4. Start levothyroxine 25 mcg daily. HEMATOLOGY History of large B cell lymphoma macrocytic anemia Thrombocytopenia Coagulopathy secondary to shock liver GI bleed with bleeding external hemorrhoid Status post transfusion 1 unit of packed red blood cells, hemoglobin has remained stable Hematology is following the patient 1 unit FFP for INR 5. recheck daily inr. PROPHYLAXIS DVT prevention with sequential compression devices, avoid chemical prophylaxis secondary to GI bleed GI protection with Protonix daily LINES Mediport has been accessed CODE STATUS Full code This patient remains critically ill with one or more organ systems which are or may become a threat to life. I have spent in excess of 137 minutes discontinuously in the care and management of this patient. This time is exclusive of procedures, and includes, but is not limited to, evaluation of the patient, review of the medical record, discussions with family, consultants, nursing staff, or respiratory therapy, and documentation in the medical record. Specifically remained at bedside for the management of her refractory cardiogenic shock. I transported the patient down to the Therapy Tech and managed hemodynamics while the Therapy Tech, and then transferred to the patient back to the ICU and remained at bedside for the management and stabilization of the left ventricular assist device.
[2018-03-10] MEDS ORDERED: Midazolam Inj 5 MG/ML 1 ML Vial ONE (08:15)
[2018-03-10] MEDS: Lactobacillus Acidophilus/L. Spores Tablet PO SCH ×3 (09:20→20:50)
[2018-03-10] MEDS: Fenofibrate 145 MG Tablet PO SCH (09:25)
--- NOTE | 2018-03-10 09:29 | XR ---
EXAM DATE: 03/10/2018 9:18 AM EDT AGE/SEX: 58 years / Female INDICATIONS: Post intubation CLINICAL DATA: This is the patient's subsequent encounter. Patient reports that signs and symptoms h ave been present for 3 days and indicates a pain score of Nonresponsive. MEDICAL/SURGICAL HISTORY: . Diabetes. Lymphoma. . Appendectomy. Hysterectomy. COMPARISON: [facility] [place], CHEST 1V SINGLE AP, 03/08/2018. . FINDINGS: There are bilateral pleural effusions and lower lobe consolidation. Right-sided portacatheter is pres ent and the tip overlies the SVC. Endotracheal tube is present and the distal tip terminates 1 cm abo ve the cristóbal. Cardiomegaly. CONCLUSION: Bilateral consolidation and effusions. Electronically signed by: Audie Sharpe MD 03/10/2018 9:28 AM EDT
[2018-03-10] MEDS ORDERED: Sodium Bicarbonate 8.4% Inj 50 MEQ/50 ML Syringe IV.PUSH ONE ×2 (09:45→11:33)
[2018-03-10] MEDS ORDERED: Lidocaine 2% 100 MG/5 ML Syringe IV.PUSH ONE (09:50)
[2018-03-10] MEDS ORDERED: Midazolam Inj 5 MG/ML 1 ML Vial IV.PUSH ONE (09:50)
[2018-03-10] MEDS: Bumetanide Inj 25 MG/100 ML BAG IV.CONT SCH ×2 (10:25→23:12)
[2018-03-10] MEDS: fentaNYL 10 mcg/mL Premix Drip 2,500 MCG/250 ML BAG IV.SIG PRN (10:30)
[2018-03-10 10:49] LABS: Amorphous Sediment,Urine Few /hpf; Bacteria,Urine Rare /hpf; Bilirubin,Urine Negative (Negative); Clarity,Urine Hazy (Clear); Color,Urine Yellow (Yellw/Straw); Glucose,Urine (UA) Negative (Negative); Hyaline Casts,Urine 1 /lpf (0-3); Leukocyte Esterase,Urine Negative (Negative); Mucus,Urine Few /lpf (Occasional); Nitrite,Urine Negative (Negative); Squamous Epithelial Cell,Urine 1 /hpf (0-5)
--- NOTE | 2018-03-10 11:59 | XR ---
EXAM DATE: 03/10/2018 11:53 AM EDT AGE/SEX: 58 years / Female INDICATIONS: Evaluate for central line placement. CLINICAL DATA: This is the patient's initial encounter. Patient reports that signs and symptoms have been present for 1 day and indicates a pain score of Nonresponsive. MEDICAL/SURGICAL HISTORY: Non-responsive. Non-responsive. COMPARISON: [facility] [place], CHEST 1V SINGLE AP, 03/10/2018. . FINDINGS: Bilateral pleural effusions and parenchymal consolidation again seen. Endotracheal tube and enteric t ube are again noted. Right-sided portacatheter has its tip overlying the expected location of the SVC . A right jugular [place] catheter is noted and the tip overlies the expected pulmonary artery outf low tract. CONCLUSION: Central line as above. Electronically signed by: Audie Sharpe MD 03/10/2018 11:58 AM EDT
[2018-03-10] MEDS ORDERED: Chlorothiazide Inj 500 MG Vial IV.PUSH ONE (12:00)
[2018-03-10] MEDS: Midazolam 50 MG/50 ML Inj 50 MG/50 ML BAG IV.CONT PRN ×2 (12:40→21:15)
[2018-03-10] MEDS ORDERED: Digoxin Inj 500 MCG/2 ML Ampul ONE (13:35)
[2018-03-10] MEDS ORDERED: Digoxin Inj 500 MCG/2 ML Ampul IV.PUSH ONE (13:45)
[2018-03-10] MEDS ORDERED: Phytonadione Inj 10 MG in Sodium Chlor 0.9% Inj 50 ML IV.SIG ONE (14:19)
[2018-03-10] MEDS ORDERED: Heparin/NS PF Inj 1,000 ML ONE (14:57)
--- NOTE | 2018-03-10 16:44 | P.PNCA ---
Subjective Interval history: Rapid deteriorating clinically in cardiogenic shock. Intubated, transferred to ICU on multiple pressors. Physical Exam Vital signs: Vital Signs 03/09/18 16:49 03/09/18 17:00 03/09/18 17:30 Temperature Pulse Rate 108 H 113 H 109 H Respiratory Rate 24 31 H 18 Blood Pressure 88/69 L 99/58 L Pulse Oximetry 94 L 93 L 03/09/18 18:00 03/09/18 18:30 03/09/18 19:00 Temperature Pulse Rate 112 H 116 H 111 H Respiratory Rate 88 H 111 H 127 H Blood Pressure 86/56 L 83/60 L 82/66 L Pulse Oximetry 93 L 94 L 92 L 03/09/18 20:00 03/09/18 20:30 03/09/18 20:34 Temperature 98.4 F Pulse Rate 111 H 112 H 117 H Respiratory Rate 24 103 H 18 Blood Pressure 87/68 L 86/67 L Pulse Oximetry 93 L 93 L 95 03/09/18 21:00 03/09/18 21:30 03/09/18 22:00 Temperature Pulse Rate 113 H 128 H 115 H Respiratory Rate 128 H 145 H 145 H Blood Pressure 88/66 L 85/55 L Pulse Oximetry 93 L 92 L 92 L 03/09/18 22:30 03/09/18 23:13 03/09/18 23:14 Temperature Pulse Rate 116 H 133 H Respiratory Rate 39 H 26 H Blood Pressure 89/55 L Pulse Oximetry 93 L 93 L 03/09/18 23:31 03/09/18 23:47 03/09/18 23:53 Temperature Pulse Rate 127 H 127 H 127 H Respiratory Rate 136 H 101 H 100 H Blood Pressure 87/53 L 86/58 L 74/34 L Pulse Oximetry 95 03/10/18 00:00 03/10/18 00:31 03/10/18 01:16 Temperature Pulse Rate 129 H 128 H 124 H Respiratory Rate 86 H 114 H 131 H Blood Pressure 71/43 L 133/61 114/63 Pulse Oximetry 92 L 03/10/18 02:00 03/10/18 02:08 03/10/18 04:00 Temperature Pulse Rate 118 H 119 H 112 H Respiratory Rate 100 H 107 H Blood Pressure 87/56 L Pulse Oximetry 03/10/18 06:00 03/10/18 08:00 03/10/18 08:01 Temperature 98 F Pulse Rate 118 H 121 H 122 H Respiratory Rate 22 34 H Blood Pressure 122/60 70/31 L Pulse Oximetry 93 L 03/10/18 08:11 03/10/18 08:13 03/10/18 08:18 Temperature Pulse Rate 121 H 123 H Respiratory Rate 34 H 33 H Blood Pressure 77/36 L 97/63 L Pulse Oximetry 95 03/10/18 08:21 03/10/18 08:24 03/10/18 08:27 Temperature Pulse Rate 123 H 125 H 124 H Respiratory Rate 36 H 94 H 31 H Blood Pressure 94/66 L 94/65 L 83/61 L Pulse Oximetry 91 L 89 L 90 L 03/10/18 08:30 03/10/18 08:33 03/10/18 08:37 Temperature Pulse Rate 127 H 120 H 120 H Respiratory Rate 34 H 36 H 20 Blood Pressure 89/65 L 86/64 L 93/57 L Pulse Oximetry 94 L 98 100 03/10/18 08:38 03/10/18 08:39 03/10/18 08:44 Temperature Pulse Rate 118 H 118 H 117 H Respiratory Rate 20 33 H 20 Blood Pressure 85/60 L 82/60 L 89/67 L Pulse Oximetry 100 100 100 03/10/18 09:00 03/10/18 09:11 03/10/18 09:12 Temperature Pulse Rate 130 H 130 H Respiratory Rate 20 20 32 H Blood Pressure 98/61 L 93/68 L Pulse Oximetry 99 97 88 L 03/10/18 09:15 03/10/18 09:19 03/10/18 09:24 Temperature Pulse Rate 129 H 129 H 130 H Respiratory Rate 9 L 2 L 22 Blood Pressure 90/67 L 95/79 L 91/61 L Pulse Oximetry 99 95 100 03/10/18 09:29 03/10/18 09:30 03/10/18 09:33 Temperature Pulse Rate 128 H 128 H 129 H Respiratory Rate 20 20 20 Blood Pressure 92/60 L 87/56 L 93/67 L Pulse Oximetry 100 100 100 03/10/18 09:36 03/10/18 09:39 03/10/18 09:42 Temperature Pulse Rate 129 H 129 H 129 H Respiratory Rate 20 20 20 Blood Pressure 95/58 L 95/61 L 99/57 L Pulse Oximetry 100 99 100 03/10/18 09:45 03/10/18 09:48 03/10/18 10:00 Temperature Pulse Rate 128 H 128 H 118 H Respiratory Rate 20 105 H Blood Pressure 93/64 L 100/54 L Pulse Oximetry 99 99 03/10/18 12:20 03/10/18 16:07 03/10/18 16:16 Temperature Pulse Rate 132 H Respiratory Rate 24 26 H 20 Blood Pressure Pulse Oximetry 93 L 94 L Intake & Output 03/09/18 03/10/18 03/10/18 18:59 06:59 18:59 Intake Total 1500 / 1500 1535 / 1535 1150 / 1150 Output Total 1000 / 1000 Balance 1500 / 1500 535 / 535 1150 / 1150 Weight 61 kg Intake: IV 850 / 850 50 / 50 1150 / 1150 Sodium Bicarbonate 8.4% Inj 150 1000 / 1000 MEQ In 1/2 Normal Saline Inj 850 ML @ 125 mls/hr IV.CONT . Q8H [facility] Rx#:[id number] Flexbumin 25% Inj 100 ML @ 60 200 / 200 100 / 100 mls/hr IV.SIG Q12H [facility] Rx#: [id number] Levophed-Dextrose 4 mg/250 ml 500 / 500 Drip 4 mg In 250 ml @ 2 MCG/MIN 7.5 mls/hr IV.SIG TITRATE PRN Rx#:[id number] Zosyn 3.375 GM Premix 50 ML @ 150 / 150 50 / 50 50 / 50 100 mls/hr IV.SIG Q6H [facility] Rx#: [id number] Oral 650 / 650 350 / 350 Other 1135 / 1135 Output: Urine 500 / 500 Pleural Fluid 500 / 500 Other: # Voids 4 4 # Incontinent Voids 1 Date of Last Bowel Movement 03/09/18 03/09/18 03/09/18 # Bowel Movements 1 - Constitutional Comments: intubated on sedation - Routine HEENT Exam Head: Present: normocephalic, atraumatic - Routine Neck Exam Present: supple, JVD - Routine Respiratory Exam Present: rhonchi, distant breath sounds, diminished air movement Comments: on ventilator - Routine Cardiovascular Exam Present: S4, tachycardia - Routine Abdominal Exam Present: soft - Routine Extremities Exam Present: cyanosis, pallor, extremity cold to touch - Urinary Catheter Management Female External Cath placed during this visit: yes Reason for continuing: Hourly intake/output Insertion date: 03/07/18 Insertion time: 17:00 Indwelling Urethral Catheter Cath placed during this visit: yes, but has since been removed by the nurse Reason for continuing: Hourly intake/output Insertion date: 03/10/18 Insertion time: 09:30 Removal date: 03/08/18 Removal time: 09:25 Assessment and Plan - Assessment (1) Systolic and diastolic CHF, acute Code(s): I50.41 - Acute combined systolic (congestive) and diastolic (congestive ) heart failure Status: Acute (2) GIB (gastrointestinal bleeding) Code(s): K92.2 - Gastrointestinal hemorrhage, unspecified Status: Acute (3) Hypotension Code(s): I95.9 - Hypotension, unspecified Status: Acute (4) Cardiogenic shock Code(s): R57.0 - Cardiogenic shock Status: Acute - Plan 58-year-old female with no prior cardiac history being seen for new onset cardiomyopathy. The patient presented 03/02 with nausea, vomiting, diarrhea. She was found to have anemia and GI bleeding, status post clipping of bleeding hemorrhoid, status post transfusion 1 unit PRBCs 03/04. Echocardiogram shows new cardiomyopathy with EF 3035%. 1. New onset CMP, LVEF 30-35% per echo, deteriorating to Cardiogenic shock today required multiple pressor, flash pulmonary edema required intubation. Urgent LHC showed LVEF 10-20%, patent coronary arteries. Insertion of external heat assist system into heart, percutaneous approach for assistance with cardiac output using Impella pump, continuous. IV heparin per protocol. Close monitoring at ICU. Daily bedside Echo to assess catheter placement, which was just done by documentation designer DR. Rocha. Right ROCK SPLITTER angiogram showed limited antegrate flow after a 14 fr sheath insertion. Discussed issue with Dr. Rosa, vascular surgeon recommended continue Impella insertion, monitor distal limb circulation, hopefully,outflow will be improved with improvement of cardiac output and reduced pressors administration. Sincerely appreciate help from our documentation designer, and ICU/cathlab staff. I am seeing patient for Dr. Kayla Pickett until 03/12/18.
[2018-03-10] MEDS ORDERED: Heparin Drip 25,000 UNIT/250 ML BAG IV.CONT PRN (17:07)
--- NOTE | 2018-03-10 17:35 | MB ---
cc: Robb Linn MD DATE: 03/10/2018 REASON FOR CONSULTATION: Acute renal failure management. HISTORY OF PRESENT ILLNESS: This is a 58-year-old female with a history of dyslipidemia, diabetes, and GERD. She also has a history of lymphoma and was previously treated with R-CHOP chemotherapy. This lymphoma has apparently been in remission. She has had ongoing history of abdominal pain and diarrhea for months. She presented to the emergency room on 03/01/2018 with ongoing abdominal symptoms, she was seen here with GI and also followed up with hem/onc service. She was assessed with initial colitis and was treated with Flagyl and Cipro. She underwent a colonoscopy and endoscopy and at that time had findings consistent with colitis. She also had banding of some rectal hemorrhoids. Her repeat CT imaging was reviewed and apparently there are no signs of any acute lymphoma. GI biopsy results are pending for any findings of any new onset of lymphoma with previous remission. Over the last 48 hours, she developed worsening dyspnea. On 03/07/2018 she was transferred to the ICU. A CT angio of the chest was performed which revealed pulmonary edema with pleural effusions and she had a thoracentesis performed. An EKG was performed with findings of Q-waves and an echocardiogram revealed 30-35% ejection fraction. There is a consideration that she has developed possible cardiomyopathy and acute heart failure. Over the last 24 hours, her condition continued to worsen and she required pressor support for hypotension and she also required intubation. At this time, the patient is intubated and receiving pressor support. Nephrology was consulted for further evaluation. Regarding her renal function, her creatinine had remained relatively stable here. Her creatinine was 0.7 yesterday; however jumped up to a level of 1.2 today. She had made good urine output and had made 500 mL of urine output in the last 24 hours; however, her cardiac indices were concerning for possible cardiogenic shock and volume overload. She was started on Bumex drip. She currently maintains a Bumex drip at 2 mg IV per hour. She is making approximately 20-30 mL of urine output per hour. Given her renal dysfunction, nephrology was consulted for further evaluation. REVIEW OF SYSTEMS: Unobtainable as the patient is intubated at this point. PAST MEDICAL HISTORY: Includes diabetes, dyslipidemia, appendicitis, chemotherapy for lymphoma, hysterectomy, benign tongue tumor. PAST SURGICAL HISTORY: Includes appendectomy, knee arthroplasty, partial hysterectomy, tonsillectomy, tubal ligation. FAMILY HISTORY: Noncontributory. SOCIAL HISTORY: The patient is a daily smoker, also drinks alcohol 2-4 times per month. No reported drug use. MEDICATIONS AT HOME: 1. Atorvastatin. 2. Fenofibrate. 3. Metformin. 4. Omeprazole. 5. Zofran. ALLERGIES: NO KNOWN DRUG ALLERGIES. PHYSICAL EXAMINATION: VITAL SIGNS: At the time of evaluation, temperature 98, heart rate 123, respiratory rate 33, blood pressure 97/63 on pressor support. GENERAL: Intubated. NECK: Soft. CARDIAC: Regular rate and rhythm. PULMONARY: Decreased breath sounds at bases. RESPIRATORY: The patient is intubated. ABDOMEN: Soft, decreased bowel sounds. EXTREMITIES: No edema. LABORATORY DATA: White count 8.8, hemoglobin 9.9, hematocrit 30.8, platelet count 195. Sodium 140, potassium 5.8. Repeat potassium on blood gas at 11 a.m. was 4.6, chloride 104, bicarbonate 13.1, BUN 17, creatinine 1.22. Creatinine was 0.7 yesterday, glucose 219, lactic acid 13.5, calcium 8.0, phosphorus 6.4. Troponin 0.08. ASSESSMENT AND PLAN: 1. Acute kidney injury. The patient had a creatinine of 0.7 yesterday, which increased to a level of 1.2. She is now in the setting of apparent cardiogenic shock. She is receiving inotropic support. The patient is making some urine output and is currently on Bumex 2 mg IV per hour. Continue with Bumex at this point for continued diuresis as tolerated. It is encouraging and the patient is making some urine output; however, she has significant hypotension, on pressor support. She may require CRRT if limited urine output. Continue to follow closely with critical care and cardiology. At this time, agree with Bumex drip as ordered. Continue to closely monitor electrolytes for now. 2. Hyperkalemia. The patient had a potassium of 5.8. Her repeat potassium is improved, to the level 4.6 at 11 a.m. Continue medical management as necessary. Continue to follow potassium closely. 3. Acidosis. The patient with significant metabolic acidosis with bicarbonate level of 13. Also significant lactic acidosis with level of 13 as well. The patient is on D5W with 150 mEq of sodium bicarbonate at 125 mL per hour. Agree with aggressive bicarbonate repletion as tolerated to manage acidosis in the setting of apparent shock and hypoperfusion of organs, may need CRRT if no improvement; however, continue to follow with primary team critical care. 4. Cardiogenic shock. The patient is being seen with cardiology, possible plan for cardiac catheterization today and possible balloon pump and/or Impella. Continue followup with critical care as well as cardiology service. We will continue to provide supportive care. Ideally, we will have further cardiac perfusion helping out with renal perfusion as well. There is a possibility of some possible cardiomyopathy secondary to previous Adriamycin for chemotherapy. The echocardiogram shows a 30-35% ejection fraction. Continue to follow closely with Cardiology. There is a possibility that contrast studies may lead to further renal injury. However, continue supportive care and monitor at this point. 5. Lymphoma. The patient has history of lymphoma with history of large cell non-Hodgkin lymphoma. The patient is being followed up with oncology service while inpatient here. Apparently imaging shows no signs of acute lymphoma. Continue to monitor. 6. Colitis. Continue to follow the patient upper and lower endoscopies and biopsies are pending. MD MACIE Hendricks/malcolm , 12:50 PM , 01:03 PM MTDD
[2018-03-10] MEDS: WATER IV.SIG PRN ×2 (17:47)
[2018-03-10] MEDS: HEPARIN IV.SIG PRN ×2 (17:47)
[2018-03-10] MEDS: DEXTROSE 5% IV.SIG PRN ×2 (17:47)
[2018-03-10] MEDS ORDERED: Iohexol 350 MG/ML 100 ML Vial (for Cath Lab) IVCONTRAST ONE (18:02)
--- NOTE | 2018-03-10 19:13 | MA ---
cc: Wing Mechelle Hewitt MD DATE: 03/10/2018 CLINICAL INFORMATION: The patient is a 58-year-old woman, developed cardiogenic shock, required multiple medications for support. The patient's condition was deteriorating. For that reason, the patient was taken to the catheterization lab for coronary angiogram and intervention indicated. Because the patient is in critical condition, insertion of the external heart assist system into heart, percutaneous approach, to assess with assistance with cardiac output using Impella pump continuous is indicated. PROCEDURE: 1. Left catheterization. 2. Left ventriculogram. 3. Left angiogram. 4. Insertion of external heart assist system into heart, percutaneous approach. 5. Assistance with cardiac output using Impella pump, continuously. PROCEDURE DETAILS AND FINDINGS: Procedure, indications, risks, and benefits were explained to the patient's , all of his questions answered and informed consent obtained. Under the standard sterile condition, lidocaine infiltrated in the right groin, the right common femoral artery was visualized by ultrasound, then cannulized using a 6-Chadian 10 cm sheath with modified Seldinger technique. A 6-Chadian JL4 catheter was engaged in left main coronary, angiograms were taken in different projections. A 5-Chadian JR4 catheter was engaged in the RCA ostium, angiogram was taken. Then, the 6-Chadian sheath was upgraded to a 14-Chadian sheath in preparation of Impella pump insertion. At this point, we identified a significant outflow limited after the sheath insertion. A lengthy discussion with cook chili, cardiovascular surgeon and our consensus was decided to proceed with insertion of Impella balloon pump and closely monitor the patient's distal circulation. Should the patient develop vascular compromise of the right lower extremity, vascular surgeon will evaluate the patient. At this point, we advanced a 6-Chadian pigtail catheter in the left ventricle, the left ventriculogram was taken in JOEL projection, the blood pressure was measured. The pigtail catheter was exchanged to the Impella catheter, which was correctly positioned into the left ventricle. Then, insertion of Impella balloon pump was normal running generated 3.6 liters per minute cardiac output. The catheter was sutured in place. The patient was transferred to the ICU where she was stable condition. FINDINGS: 1. Left ventricle moderately dilated with severely impaired systolic function. Estimated LVEF of 10-15%. Left ventricular systolic pressure 90, left ventricular and diastolic pressure 35 mmHg. 2. Left main coronary was patent. 3. Left anterior descending artery and diagonal with mild luminal irregularity. 4. Circumflex mild irregularity. 5. RCA dominant system, mild luminal irregularity. RECOMMENDATIONS: Continuous assistance with cardiac output using Impella pump. The patient will be monitored closely in ICU. Wing MD MARK ANTHONY Chahal/raissa , 04:23 PM , 04:36 PM MTDLeana
--- NOTE | 2018-03-10 19:57 | P.PCN ---
Date of procedure: 03/10/18 Pre-op diagnosis: Cardiogenic shock Post-op diagnosis: same Procedure: Procedure: Arterial Line Placement Right radial arterial line Diagnosis: Cardiogenic shock Indications: Need for beat to beat hemodynamic monitoring Consent: Emergent Description of the Procedure: The right wrist was prepped and draped sterilely. 1% lidocaine was used for local anesthesia. Under direct ultrasound guidance, the radial artery was located and a needle was advanced into the artery. The vascular anatomy of the right arm was normal. A 20 gauge , 12 cm catheter was advanced into the artery using a modified Seldinger technique. The catheter was sutured to the skin and a sterile dressing was applied. The catheter was connected to a pressure transducer and an arterial waveform was noted. There were no immediate complications noted. There was minimal EBL. I personally performed the procedure.
--- NOTE | 2018-03-10 19:59 | P.PCN ---
Date of procedure: 03/10/18 Pre-op diagnosis: Cardiogenic shock Post-op diagnosis: same Procedure: Endotracheal Intubation Diagnosis: Cardiogenic shock Indications: Acute hypoxic respiratory failure secondary to pulmonary edema Consent: Emergent Anesthesia: Lidocaine 100 mg IV, Versed 2 mg IV, rocuronium 100 mg IV Description of the Procedure: The patient was positioned in the sniffing position. Pre-oxygenation was performed using a [id number]. Anesthesia was induced via rapid sequence. A Rosenthal #2 was used for laryngoscopy and a Grade I view was obtained. A 8.0 cuffed endotracheal tube was inserted atraumatically through the vocal cords. Confirmation of correct endotracheal tube placement was made by equal and bilateral breath sounds and colorimetric CO2 detection. The endotracheal tube was secured at 21 cm at the teeth. There were no immediate complications noted. The patient remained hemodynamically stable throughout the procedure. A chest x-ray has been ordered. I personally performed the procedure.
[2018-03-10] MEDS ORDERED: EPOPROSTENOL NEB SCH ×2 (20:00)
[2018-03-10] MEDS ORDERED: SODIUM CHLOR 0.9% NEB SCH ×2 (20:00)
--- NOTE | 2018-03-10 20:00 | P.PCN ---
Date of procedure: 03/10/18 Pre-op diagnosis: Cardiogenic shock Post-op diagnosis: same Procedure: Central Line Procedure Note Right IJ 8.5 Afghan 10 cm introducer sheath Diagnosis: Cardiogenic shock Indications: Need for highly potent vasoactive substances and central pressure monitoring Consent: Emergent Anesthesia: Versed IV Description of the Procedure: The patient was placed in the supine, mild- Trendelenburg position. The area was prepped and draped sterilely. A 19g needle was inserted under negative pressure aspiration and dark venous blood was obtained. A guidewire was inserted easily without resistance. A small incision was made using a #11 blade. Using a modified Seldinger technique, the dilator and 8.5 Afghan, 10 cm catheter were advanced over the guidewire without resistance. All ports were aspirated and flushed, and had brisk blood return. The line was secured at the skin using 2-0 silk interrupted sutures. Suture was used instead of a non-suture StatLock device due to the configuration of the introducer sheath. A Biopatch and Transparent sterile dressing were applied. There were no immediate complications noted. There was minimal EBL. The patient tolerated the procedure well. Ultrasound Guidance: Ultrasound guidance was used to identify the right internal jugular vein. The vascular anatomy of the right anterior neck was normal. The vessel was cannulated under direct, real-time ultrasound visualization. After placement of the guidewire, confirmation of the guidewire in the lumen of the vessel was made using ultrasound visualization, before dilation of the tract. A Chest x-ray has been ordered. I personally performed the procedure.
--- NOTE | 2018-03-10 20:04 | P.PCN ---
Date of procedure: 03/10/18 Pre-op diagnosis: Cardiogenic shock Post-op diagnosis: same Procedure: Pulmonary Artery Catheter Procedure Note Right IJ PA catheter Diagnosis: Cardiogenic shock Indications: Need for thermodilution cardiac output Consent: Emergent Anesthesia: Versed IV Description of the Procedure: The patient was placed in the supine, mild-Reverse -Trendelenburg position. The area was prepped and draped sterilely. A 6 Fr pulmonary artery catheter was flushed, and all ports were checked, including PA , CVP, infusion port. The balloon was tested and inflated and deflated easily. Through an existing introducer sheath, the catheter was inserted to a depth of 20 cm and the balloon was inflated without resistance. The PA catheter was advanced under continuous waveform hemodynamic monitoring and appropriate RA, RV , PA, and PCWP waveforms were achieved. The balloon was deflated. The line was secured to the introducer sheath using a sterile cover. There were no immediate complications noted. There was minimal EBL. The patient tolerated the procedure well. PA catheter secured at: 47 cm. Hemodynamic Data: HR: 129 Art: 109/69 (82) mmHg RAP: 25 mmHg RV: 33/18 (27) mmHg PAP: 32/24 (28) mmHg PCWP: 27 mmHg achieved at 51 cm SVR: 1759 PVR: 0.4 Hall units SV: 19mL Mixed Venous SvO2: 42 % Cardiac Output: 2.5 L/min Cardiac Index: 1.6 A Chest x-ray has been ordered. I personally performed the procedure.
[2018-03-10] MEDS ORDERED: Albumin Human 25% Inj 100 ML IV.SIG ONE (21:00)
[2018-03-10] MEDS ORDERED: Calcium Chloride Inj 2 GM in Sodium Chlor 0.9% Inj 100 ML IV.SIG ONE (21:00)
[2018-03-10] MEDS: Potassium Chlor 40 mEq Premix 40 MEQ/100 ML PIGGYBACK IV.SIG PRN (21:17)
[2018-03-10] MEDS: Epoprostenol (30,000/mL) Neb 62.5 ML in Sodium Chlor 0.9% Inj 37.5 ML NEB SCH (22:21)
[2018-03-10] MEDS ORDERED: Heparin 10,000 UNITS/10 ML Vial (for IV use) IV.PUSH PRN ×2 (23:07)
[2018-03-10] MEDS: Milrinone Inj 20 MG in Sodium Chlor 0.9% Inj 80 ML IV.CONT SCH (23:11)
[2018-03-11] MEDS ORDERED: Albumin Human 5% Inj 500 ML IV.SIG ONE (00:37)
[2018-03-11] MEDS: Piperacil/Tazo 3.375 GM Premix 50 ML IV.SIG SCH ×4 (00:40→17:33)
[2018-03-11] MEDS: Diphenoxylate/Atropine 2.5/0.025 MG Tablet PO SCH ×4 (00:40→17:32)
[2018-03-11] MEDS: Vasopressin Inj 40 UNIT in Dextrose 5% in Water Inj 98 ML IV.CONT PRN ×4 (01:00→12:22)
[2018-03-11] MEDS: Potassium Chlor 40 mEq Premix 40 MEQ/100 ML PIGGYBACK IV.SIG PRN (01:17)
[2018-03-11] MEDS: Hydrocortisone/Pramoxine Foam 10 GM Can RECTAL SCH ×3 (03:34→17:32)
[2018-03-11 04:08] LABS: INR 2.7 Ratio; Prothrombin Time 27.5 sec (9.8-11.6)
[2018-03-11] MEDS: Midazolam 50 MG/50 ML Inj 50 MG/50 ML BAG IV.CONT PRN ×3 (04:54→20:39)
[2018-03-11 05:22] LABS: ABG Base Excess 7.8 mmol/L (-2-2); ABG PCO2 36 mmHg (38-42); ABG PO2 119 mmHG (61-120)
[2018-03-11 05:52] LABS: Mean Corpuscular HGB Conc 34.5 % (32.0-36.0); Mean Corpuscular Volume 95.6 fL (80.0-100.0); Mean Platelet Volume 9.4 fL (7.0-11.0); Platelet Count 98 th/mm3 (150-450); Red Blood Count 1.65 mil/mm3 (4.00-5.30); Red Cell Distribution Width 27.3 % (11.6-17.2); White Blood Count 9.8 th/mm3 (4.0-11.0)
[2018-03-11] MEDS: MethylPREDNISolone Sod Succinate Inj 125 MG/2 ML Vial IV.PUSH SCH ×2 (05:52→17:30)
[2018-03-11] MEDS: metroNIDAZOLE 500 MG Tablet PO SCH ×3 (05:53→21:34)
[2018-03-11] MEDS: Epoprostenol (30,000/mL) Neb 62.5 ML in Sodium Chlor 0.9% Inj 37.5 ML NEB SCH ×3 (05:54→21:39)
[2018-03-11 06:00] LABS: Hematocrit 15.8 % (35.0-46.0); Hemoglobin 5.4 gm/dL (11.6-15.3)
--- NOTE | 2018-03-11 06:08 | XR ---
EXAM DATE: 03/11/2018 6:04 AM EDT AGE/SEX: 58 years / Female INDICATIONS: Shortness of breath. CLINICAL DATA: This is the patient's subsequent encounter. Patient reports that signs and symptoms h ave been present for 4 - 6 days and indicates a pain score of Nonresponsive. MEDICAL/SURGICAL HISTORY: Diabetes. Lymphoma. None. [place] [facility] [place] 1[place]. . FINDINGS: Portable AP view of the chest demonstrates a normal-sized cardiac silhouette. Multiple EKG lines over lie the patient. [id number], endotracheal tube, and nasogastric tube remain present. Right IJ line and pulmonary artery catheter remains present. The tip of the pulmonary artery catheter is stable in the midline likely in the right main pulmonary artery. There are bibasilar pleural-parenchymal opaci ties, stable from the prior study. No pneumothorax is identified. CONCLUSION: Stable chest x-ray with bibasilar opacities characteristic of pleural effusions with associated volum e loss and/or airspace consolidation. Electronically signed by: Jay Hernandez MD 03/11/2018 6:06 AM EDT
[2018-03-11 06:21] LABS: Alanine Aminotransferase 53 U/L (10-53); Albumin 3.1 g/dL (3.4-5.0); Alkaline Phosphatase 69 U/L (45-117); Anion Gap 15 meq/L (5-15); Aspartate Aminotransferase 198 U/L (15-37); Blood Urea Nitrogen 28 mg/dL (7-18); Calcium 8.1 mg/dL (8.5-10.1); Carbon Dioxide 31.5 meq/L (21.0-32.0); Chloride 98 meq/L (98-107); Glomerular Filtration Rate 32 mL/min (>89); Glucose,Random 232 mg/dL (74-106); Magnesium 1.4 mg/dL (1.5-2.5); Phosphorus 3.9 mg/dL (2.5-4.9); Potassium 4.6 meq/L (3.5-5.1); Sodium 144 meq/L (136-145); Total Protein 4.8 g/dL (6.4-8.2)
--- NOTE | 2018-03-11 06:44 | P.PNCC ---
Subjective Subjective Remarks/Hospital Course: 58-year-old female with known history of hyperlipidemia, diabetes, gastroesophageal reflux, history of lymphoma who presented to the hospital initially because of abdominal pain, chronic diarrhea, nausea vomiting for 4 months. Patient is being followed by Dr. Thomas in the outpatient setting for the chronic diarrhea. She underwent endoscopy on October this year there was a stricture found and was dilated at that time. Colonoscopy was scheduled for next Sunday however due to the patient's increased nausea vomiting diarrhea she came to the emergency department for evaluation. Patient had significant workup done in the hospital to include full stool evaluation for any infectious process which was unremarkable. CT scan did indicate signs of colitis in the proximal half of the transverse colon with submucosal edema. Patient was admitted the hospital and GI consultation was requested and performed. Patient did undergo colonoscopy which did indicate colitis, biopsies were taken. Patient did have internal hemorrhoids +1 external hemorrhoid that needed to be clipped. The patient's stay her hemoglobin was monitored and her hemoglobin did drop down to 7.8 and given that she had heme positive stools she is transfused 1 unit of packed red blood cells which her hemoglobin went back up to 10.1. Patient's hemoglobin has maintained stability since then. Patient was in the ICU secondary to continued hypotension secondary to hypovolemia from her nausea, vomiting, diarrhea. Patient was on electrolyte replacement protocol due to electrolyte loss from diarrhea. Patient was started on Questran and Lomotil with significant improvement. Patient was given multiple liters of fluid boluses as well as albumin infusions with improvement of her blood pressure. Patient does have history of chronic anemia which appears to be macrocytic. Hematology was consulted for further recommendations in reference to the patient's history of lymphoma, chronic anemia, pancytopenia. Patient was actually doing well and was transferred to the medical floor. However last evening the patient had acute onset of shortness of breath. There is no indication chest pain, abdominal pain, nausea, vomiting. Patient had significant workup performed which did indicate a acute troponin elevation, significant elevation of BNP. Chest x-ray did showed new findings of pulmonary edema, pulmonary angiogram was performed which did show significant pulmonary edema with bilateral pleural effusions. Patient was transferred back to the ICU due to acute hypoxic respiratory failure. Patient was requiring 6 L nasal cannula maintain O2 saturations greater than 92%. Upon review of the EKGs it does appears patient had acute changes with Q-wave presentation in the inferior leads. Due to the patient's respiratory failure, significant hypotension, acute myocardial infarction, acute cardiomyopathy, acute congestive heart failure critical care consultation was requested for management in the ICU. SUBJECTIVE: 03/09: Currently on norepinephrine drip at 8 mcg/min. Complaining of being slightly short of breath. Current x-ray revealed tiny pleural effusions. Abdominal pain control. 03/10: florid cardiogenic shock. lactate 13. altered. acutely agitated. going into respiratory failure. emergently intubated (see procedure note for details) . scvo2 from central line of 12%. transferred to CVICU. placed arterial, central lines and PA catheter. CI 1.6. 4mg bumex iv x 1 with bumex drip at 2mg/ hr. started milrinone and epinephrine drips. no adequate uop. Dr. Hewitt came in and emergently LHC: clean coronaries. placed impella. 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 right leg without dopplerable signals after impella, but cap refill present (sluggish, but present). patient still follows commands. lactate peaked at 19, now downtrending. fio2 90% on peep 10. pulmonary edema. 03/11: Condition remains critical with guarded prognosis. Remains in profound shock. Now cardiogenic hypovolemic, hemoglobin 5.4-3 unit PRBC stat ordered, with calcium replacement. Currently remains on the fentanyl and Versed for sedation. Also on epinephrine 3 mcg/min, milrinone 0.375 mcg/kg/min, Levophed 20 mcg/min and vasopressin 0.04 international units. Heparin held due to supratherapeutic INR. Lactate continues to trend down last 4.4. Mixed venous gases pending at this time. Impella R groin, P level 6, Flow 2.9 L/min, sig 88/ 59. UO over last 12 hours is 4L. Objective Vital Signs / I&O: Vital Signs 03/10/18 08:00 03/10/18 08:01 03/10/18 08:11 Temperature Pulse Rate 121 H 122 H 121 H Respiratory Rate 34 H 34 H Blood Pressure 70/31 L 77/36 L Pulse Oximetry 03/10/18 08:13 03/10/18 08:18 03/10/18 08:21 Temperature Pulse Rate 123 H 123 H Respiratory Rate 33 H 36 H Blood Pressure 97/63 L 94/66 L Pulse Oximetry 95 91 L 03/10/18 08:24 03/10/18 08:27 03/10/18 08:30 Temperature Pulse Rate 125 H 124 H 127 H Respiratory Rate 94 H 31 H 34 H Blood Pressure 94/65 L 83/61 L 89/65 L Pulse Oximetry 89 L 90 L 94 L 03/10/18 08:33 03/10/18 08:37 03/10/18 08:38 Temperature Pulse Rate 120 H 120 H 118 H Respiratory Rate 36 H 20 20 Blood Pressure 86/64 L 93/57 L 85/60 L Pulse Oximetry 98 100 100 03/10/18 08:39 03/10/18 08:44 03/10/18 09:00 Temperature Pulse Rate 118 H 117 H Respiratory Rate 33 H 20 20 Blood Pressure 82/60 L 89/67 L Pulse Oximetry 100 100 99 03/10/18 09:11 03/10/18 09:12 03/10/18 09:15 Temperature Pulse Rate 130 H 130 H 129 H Respiratory Rate 20 32 H 9 L Blood Pressure 98/61 L 93/68 L 90/67 L Pulse Oximetry 97 88 L 99 03/10/18 09:19 03/10/18 09:24 03/10/18 09:29 Temperature Pulse Rate 129 H 130 H 128 H Respiratory Rate 2 L 22 20 Blood Pressure 95/79 L 91/61 L 92/60 L Pulse Oximetry 95 100 100 03/10/18 09:30 03/10/18 09:33 03/10/18 09:36 Temperature Pulse Rate 128 H 129 H 129 H Respiratory Rate 20 20 20 Blood Pressure 87/56 L 93/67 L 95/58 L Pulse Oximetry 100 100 100 03/10/18 09:39 03/10/18 09:42 03/10/18 09:45 Temperature Pulse Rate 129 H 129 H 128 H Respiratory Rate 20 20 20 Blood Pressure 95/61 L 99/57 L 93/64 L Pulse Oximetry 99 100 99 03/10/18 09:48 03/10/18 10:00 03/10/18 12:20 Temperature Pulse Rate 128 H 118 H Respiratory Rate 105 H 24 Blood Pressure 100/54 L Pulse Oximetry 99 93 L 03/10/18 15:00 03/10/18 16:07 03/10/18 16:16 Temperature 98.1 F Pulse Rate 133 H 132 H Respiratory Rate 20 26 H 20 Blood Pressure 90/65 L Pulse Oximetry 97 94 L 03/10/18 19:00 03/10/18 21:10 03/10/18 21:28 Temperature 100 F H Pulse Rate 126 H 129 H Respiratory Rate 18 16 14 Blood Pressure 80/61 L Pulse Oximetry 99 97 03/10/18 23:00 03/10/18 23:15 03/10/18 23:31 Temperature 100.8 F H 100.8 F H 100 F H Pulse Rate 130 H 137 H 131 H Respiratory Rate 15 17 15 Blood Pressure 81/61 L 92/65 L 79/56 L Pulse Oximetry 94 L 92 L 94 L 03/11/18 00:00 03/11/18 00:40 03/11/18 03:00 Temperature 100.8 F H 99.7 F H Pulse Rate 130 H 140 H Respiratory Rate 14 14 17 Blood Pressure 91/58 L 88/60 L Pulse Oximetry 96 98 97 03/11/18 03:17 Temperature Pulse Rate Respiratory Rate 14 Blood Pressure Pulse Oximetry 98 Intake & Output 03/10/18 03/10/18 03/11/18 06:59 18:59 06:59 Intake Total 1535 / 1535 2150 / 2150 3170 / 3170 Output Total 1000 / 1000 1450 / 1450 Balance 535 / 535 700 / 700 3170 / 3170 Weight 61 kg 63.5 kg Intake: IV 50 / 50 2150 / 2150 2920 / 2920 Bumex Inj 25 mg In 100 ml @ 1 184 / 184 MG/HR 4 mls/hr IV.CONT .[id number] COUNTS INCLUDE 234 BEDS AT THE [facility] Rx#:[id number] EPINEPHrine (1:1000) Inj 4 MG 250 / 250 In D5W Inj 246 ML @ 4 MCG/MIN 15 mls/hr IV.CONT TITRATE PRN Rx#:[id number] Versed Inj 50 mg In 50 ml @ 2 100 / 100 MG/HR 2 mls/hr IV.CONT TITRATE PRN Rx#:[id number] Sodium Bicarbonate 8.4% Inj 150 2000 / 2000 1066 / 1066 MEQ In 1/2 Normal Saline Inj 850 ML @ 42 mls/hr IV.CONT . [id number] COUNTS INCLUDE 234 BEDS AT THE [facility] Rx#:[id number] Flexbumin 25% Inj 100 ML @ 200 100 / 100 100 / 100 mls/hr IV.SIG NOW ONE Rx#: [id number] Alburx 5% Inj 500 ML @ 250 mls/ 500 / 500 hr IV.SIG ONCE ONE Rx#:[id number] Calcium Chloride Inj 2 GM In NS 120 / 120 Inj 100 ML @ 120 mls/hr IV.SIG NOW ONE Rx#:[id number] Levophed-Dextrose 4 mg/250 ml 250 / 250 Drip 4 mg In 250 ml @ 2 MCG/MIN 7.5 mls/hr IV.SIG TITRATE PRN Rx#:[id number] Zosyn 3.375 GM Premix 50 ML @ 50 / 50 50 / 50 50 / 50 100 mls/hr IV.SIG Q6H BRENDA Rx#: [id number] KCl 40 mEq Premix Inj 40 meq In 200 / 200 100 ml @ 25 mls/hr IV.SIG Q2H PRN Rx#:[id number] Flolan (30,000 ng/mL) Neb 62.5 100 / 100 ML In NS Inj 37.5 ML @ 8 mls/hr NEB Q8H COUNTS INCLUDE 234 BEDS AT THE [facility] Rx#:[id number] Oral 350 / 350 0 / 0 Other 1135 / 1135 250 / 250 Rbc As-3 Leukoreduced Unit 250 / 250 [id number] Intake (Blood Product) Amt 0 / 0 Rbc As-3 Leukoreduced Unit 0 / 0 [id number] Output: Urine 500 / 500 Pleural Fluid 500 / 500 Urine Amount (Catheter) 1450 / 1450 Indwelling Urethral Catheter 1450 / 1450 Other: Other Intake Source Rbc As-3 Leukoreduced Unit Saline Solution [id number] # Voids 4 # Incontinent Voids 1 Date of Last Bowel Movement 03/09/18 03/09/18 Result Diagrams: 03/11/18 05:10 03/11/18 05:10 Objective Remarks: GENERAL: 58-year-old female in bed intubated sedated critically ill. SKIN: cool, poorly perfused, mottled. Tattoo right lower extremely HEAD: Atraumatic. Normocephalic. EYES: Pupils equal and round. No scleral icterus. No injection or drainage. ENT: No nasal bleeding or discharge. Mucous membranes pink and moist. Orotracheally intubated NECK: Trachea midline. significant JVD+. Right IJ PA catheter in place CARDIOVASCULAR: tachycardic rate, hypotensive on multiple pressures, sinus tachycardia. PAC in place with CO 4.7, CI 2.9, CVP 9, SVRI 1239. On multiple pressors RESPIRATORY: Air entry equal bilaterally on PRBC mode. Basilar crackles diminished air entry GASTROINTESTINAL: Abdomen soft, non-tender, distended. Hepatic and splenic margins not palpable. MUSCULOSKELETAL: Extremities mottled. 1+ edema. No dopplerable pulse right lower extremity, cold clammy. Patient is able to move the right lower extremity. Impella insertion site with significant oozing. Remains on Flolan 50 mg/kg/min NEUROLOGICAL: RASS -2. Follows commands on sedation lightening. No focal deficits Assessment and Plan - Assessment and Plan Plan: Assessment: 58yF with new and worsening acute cardiogenic shock. now with need for mechanical support. unclear etiology, but non-ischemic in origin. could be Adriamycin induced cardiomyopathy, vs new viral myocarditis, given colitis as her presenting symptom. Continue mechanical support with Impella CP. Appreciate cardiology help greatly NEUROLOGY/PSYCH: Acute metabolic encephalopathy Continue monitor neurological function, frequent neuro checks Versed and fentanyl for sedation and vent synchrony Morphine sulfate 2 mg IV every 4 hours as needed for pain encephalopathy secondary to cardiogenic shock. PULMONOLOGY Acute hypoxic respiratory failure secondary to pulmonary edema, pleural effusion L>R Pleural effusion intubated 03/10 for acute decline. Status post thoracentesis by Dr. Nate Thompson 03/07 Albuterol/ipratropium aerosols every 6 hours and albuterol aerosols every 2 hours as needed vent bundle, hob elevated no weaning of mechanical ventilation until shock improves Start Flolan wean once Fio2<50% CARDIOLOGY Cardiogenic shock- worsening Acute systolic heart failure exacerbation Non-ischemic Cardiomyopathy Elevated troponin Elevated BNP s/p Impella CP placement 03/10. P 6, Flow 2.9 L/ min, sig 88/56, UO >4L in 12 hours, lactate 4 milrinone at 0.375 mcg/kg/min, levophed 20 mcg/min, vasopressin, epinephrine 3 mcg/min, s/p LHC 03/10 with clean coronaries. EF now 20%. moderate RV dysfunction 2D Echo EF 30-35% 03/07. Previous echo prior to CHOP regimen showed normal ejection fraction Cardiomyopathy may be secondary to Adriamycin toxicity Troponin have plateaued with troponin at 0.21 keep PA catheter, CI 2.9, SVI 1290 trend lactates. watch cvp carefully: RV failure may ensue from LVAD, last CVP 9 Avoid over-diurese as this may cause suck-down of LVAD, currently on 60% fio2 with pulmonary edema heparin drip held due to supratherapeutic PTT No pulse right lower extremity, but preserved function GASTROENTEROLOGY Colitis, ? ischemic GI bleed External hemorrhoid Shock liver NPO with OGT. GI is following the patient and has undergone upper and lower endoscopies which does indicate colitis, distal esophagitis, external hemorrhoids. 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 difficile, enteric pathogens, Giardia, stool for WBCs all appear to be negative Urine culture shows 50 - 100,000 of mixed tierney probable contaminants Patient currently on piperacillin/tazobactam and metronidazole, ENDOCRINOLOGY Diabetes mellitus Elevated TSH Continue Accu-Cheks with sliding scale insulin/aspart. On the metformin thousand grams twice daily at home TSH 6.89. Low free T3. Normal free T4. On levothyroxine 25 mcg daily. Continue IV Solu-Medrol 60 mg 12 hours HEMATOLOGY History of large B cell lymphoma macrocytic anemia Thrombocytopenia Coagulopathy secondary to shock liver GI bleed with bleeding external hemorrhoid Status post transfusion 1 unit of packed red blood cells, hemoglobin has remained stable Today hemoglobin is 5.4 transfuse 3 units PRBC stat with calcium replacement Hematology is following the patient s/p 1 unit FFP for INR 5. recheck daily inr. Heparin on hold for supratherapeutic PTT PROPHYLAXIS DVT prevention with sequential compression devices, on IV heparin currently on hold GI protection with Protonix LINES Mediport has been accessed, right IJ PA catheter in place CODE STATUS Full code This patient remains critically ill with one or more organ systems which are or may become a threat to life. I have spent in excess of 105 minutes discontinuously in the care and management of this patient. This time is exclusive of procedures, and includes, but is not limited to, evaluation of the patient, review of the medical record, discussions with family, consultants, nursing staff, or respiratory therapy, and documentation in the medical record. Specifically remained at bedside for the management of her refractory cardiogenic shock. I transported the patient down to the Fundraising Officer and managed hemodynamics while the Fundraising Officer, and then transferred to the patient back to the ICU and remained at bedside for the management and stabilization of the left ventricular assist device. Code Status: Full
[2018-03-11] MEDS ORDERED: Calcium Chloride Inj 2 GM in Sodium Chlor 0.9% Inj 100 ML IV.SIG ONE (07:30)
[2018-03-11] MEDS: Magnesium Sulfate Inj 2 GM in Sodium Chlor 0.9% Inj 96 ML IV.SIG PRN (08:27)
[2018-03-11] MEDS: Insulin NovoLOG Aspart Correctional Sugar Inj SQ SCH ×4 (08:59→21:45)
[2018-03-11] MEDS: Fenofibrate 145 MG Tablet PO SCH (08:59)
[2018-03-11] MEDS: Lactobacillus Acidophilus/L. Spores Tablet PO SCH ×3 (08:59→17:32)
--- NOTE | 2018-03-11 09:21 | P.CONVS ---
History of Present Illness Service: Vascular Surgery Consult date: 03/11/18 Reason for Consult: R LE ischemia Primary Care Provider: Jay Mcnair Chief Complaint: Abdominal pain, nausea and vomiting History of Present Illness: 58 yo female with ? cardiogenic shock req emergent placement of Impella mechanical supportive device via R groin (14-->9F) and cool R leg. By report, moves foot. Critically ill with multiple pressors, LA of 8.5 and coagulopathy. Improved hemodynamics overnight but concern now for Hct drop to 16. Getting PRBC. INR 2.7 from 5. PMH/PSH obtained from EMR obviously. Review of Systems unobtainable due to endotracheal tube PMFSH - History History Provided By: Patient, Medical Record - Medical History Medical History: Medical History (Last Reviewed 03/11/18 @ 09:17 by Philippe Arellano MD) Diabetes High cholesterol History of appendicitis History of benign tumor of tongue History of chemotherapy History of hysterectomy History of lymphoma - Surgical History Surgical History: Surgical History (Last Reviewed 03/11/18 @ 09:17 by Philippe Arellano MD) History of appendectomy History of arthroplasty of knee History of partial hysterectomy History of tonsillectomy History of tubal ligation - Family History Family History: Family History (Last Reviewed 03/07/18 @ 14:09 by TIMI Carrera) Other No pertinent family history - Tobacco History Second Hand Smoke Exposure: Yes Tobacco Use In Past 30 Days: Yes Smoking Status: Current every day smoker Tobacco Type: Cigarettes - Alcohol History How Often Do You Have a Drink Containing Alcohol: 2 to 4 times a month - Substance Use History Substance History: No History of Abuse - Travel History Recent Travel in the [place] Within the Last 8 Weeks: No Recent Travel Out of the Country Within the Last 8 Weeks: No - Immunization History Tetanus Immunization: Unsure Hx Influenza Vaccine This Season: No Medications and Allergies Active Medications: Active Medications Acetaminophen (Tylenol) 650 mg PO Q4H PRN PRN Reason: Temp > 100.4 Albuterol (Duoneb Neb (Stewart)) 1 ampul NEB Q6HR NEB [facility] Last Admin: 03/11/18 03:24 Dose: Not Given Albuterol (Albuterol Neb (Prn)) 2.5 mg NEB Q2HR NEB PRN PRN Reason: DYSPNEA Last Admin: 03/09/18 23:06 Dose: 2.5 mg Atorvastatin Calcium (Lipitor) 20 mg PO HS [facility] Last Admin: 03/11/18 00:39 Dose: 20 mg Budesonide/Formoterol Fumarate (Symbicort 160/4.5 Mcg Inh) 2 puff INH BID [facility] Last Admin: 03/10/18 21:53 Dose: Not Given Cholestyramine Resin (Questran 4 Gm Pkt) 4 gm PO BID [facility] Last Admin: 03/10/18 22:25 Dose: Not Given Dextrose (D50w Vial) 50 ml IV.PUSH UNSCH PRN PRN Reason: PER HYPOGLYCEMIA PROTOCOL Diphenoxylate HCl/Atropine (Lomotil) 1 tab PO Q6HR [facility] Last Admin: 03/11/18 05:53 Dose: Not Given Fenofibrate (Tricor) 145 mg PO DAILY [facility] Last Admin: 03/11/18 08:59 Dose: 145 mg Glucagon (Glucagon Inj) 1 mg OTHER PRN PRN PRN Reason: for Hypoglycemia Protocol Heparin Sodium (Porcine) (Heparin Inj) 2,500 units IV.PUSH UNSCH PRN PRN Reason: aPTT 25-39 Heparin Sodium (Porcine) (Heparin Inj) 5,000 units IV.PUSH UNSCH PRN PRN Reason: aPTT < 25 Magnesium Sulfate Inj 2 gm/ (Sodium Chloride) 100 mls @ 50 mls/hr IV.SIG UNSCH PRN PRN Reason: For Magnesium 1.2 - 1.6 mg/dL Last Admin: 03/11/18 08:27 Dose: 50 mls/hr Potassium Chloride (Kcl 20 Meq Premix Inj) 20 meq in 100 mls @ 50 mls/hr IV.SIG Q2H PRN PRN Reason: For Potassium 3.3 - 3.5 mEq/L Potassium Chloride (Kcl 40 Meq Premix Inj) 40 meq in 100 mls @ 25 mls/hr IV.SIG UNSCH PRN PRN Reason: For Potassium 3.3 - 3.5 mEq/L Last Admin: 03/08/18 13:03 Dose: 25 mls/hr Potassium Chloride (Kcl 20 Meq Premix Inj) 20 meq in 100 mls @ 50 mls/hr IV.SIG Q2H PRN PRN Reason: For Potassium 2.8 - 3.2 mEq/L Last Infusion: 03/06/18 13:22 Dose: Infused Potassium Phosphate 30 mmol/ (Sodium Chloride) 260 mls @ 42 mls/hr IV.SIG UNSCH PRN PRN Reason: SEE LABEL COMMENTS Sodium Phosphate 30 mmol/ (Sodium Chloride) 260 mls @ 42 mls/hr IV.SIG UNSCH PRN PRN Reason: For Phosphorus < 2.5 mg/dL Magnesium Sulfate Inj 4 gm/ (Sodium Chloride) 100 mls @ 50 mls/hr IV.SIG UNSCH PRN PRN Reason: For Magnesium 0.9 - 1.1 mg/dL Last Infusion: 03/07/18 03:38 Dose: Infused Potassium Chloride (Kcl 40 Meq Premix Inj) 40 meq in 100 mls @ 25 mls/hr IV.SIG Q2H PRN PRN Reason: For Potassium 2.8 - 3.2 mEq/L Last Infusion: 03/11/18 05:25 Dose: Infused Norepinephrine Bitartrate (Levophed-Dextrose 4 Mg/250 Ml Drip) 4 mg in 250 mls @ 7.5 mls/hr IV.SIG TITRATE PRN; Protocol PRN Reason: Per Protocol Last Admin: 03/11/18 06:06 Dose: 20 mcg/min, 75 mls/hr Piperacillin/Tazobactam/Dextrose (Zosyn 3.375 Gm Premix) 50 mls @ 100 mls/hr IV.SIG Q6H [facility] Last Infusion: 03/11/18 06:25 Dose: Infused Epinephrine HCl 4 mg/ Dextrose 250 mls @ 15 mls/hr IV.CONT TITRATE PRN; Protocol PRN Reason: See protocol Last Admin: 03/11/18 04:18 Dose: 2 mcg/min, 7.5 mls/hr Fentanyl (Fentanyl 10 Mcg/Ml Premix Drip) 2,500 mcg in 250 mls @ 5 mls/hr IV.SIG TITRATE PRN; Protocol PRN Reason: Per Protocol Last Titration: 03/10/18 20:00 Dose: 100 mcg/hr, 10 mls/hr Midazolam HCl (Versed Inj) 50 mg in 50 mls @ 2 mls/hr IV.CONT TITRATE PRN; Protocol PRN Reason: Per Protocol Last Admin: 03/11/18 04:54 Dose: 6 mg/hr, 6 mls/hr Heparin Sodium (Porcine) 25, (000 unit/ Dextrose) 502.5 mls @ 0 mls/hr IV.SIG UNSCH PRN PRN Reason: RATE PER IMPELLA FLOW SYSTEM Last Admin: 03/10/18 17:47 Dose: 1 mls/hr Heparin Sodium/Dextrose (Heparin/D5w 25,000 U/250 Ml) 25,000 unit in 250 mls @ 10 mls/hr IV.CONT TITRATE PRN; Protocol PRN Reason: Per Protocol Last Titration: 03/10/18 22:00 Dose: 0 units/hr, 0 mls/hr Vasopressin 40 unit/ Dextrose 100 mls @ 1.5 mls/hr IV.CONT TITRATE PRN; Protocol PRN Reason: Per Protocol Last Admin: 03/11/18 01:00 Dose: 0.01 units/min, 1.5 mls/hr Epoprostenol Sodium 62.5 ml/ (Sodium Chloride) 100 mls @ 8 mls/hr NEB Q8H [facility] Last Admin: 03/11/18 05:54 Dose: 8 mls/hr Milrinone Lactate 20 mg/ (Sodium Chloride) 100 mls @ 6.86 mls/hr IV.CONT .[id number] [facility] Last Admin: 03/10/18 23:11 Dose: 0.375 mcg/kg/min, 6.86 mls/hr Insulin Aspart (Novolog Insulin Correctional Sugar Inj) 0 unit SQ ACHS [facility]; Protocol Last Admin: 03/11/18 08:59 Dose: 5 unit Lactobacillus Acidophilus (Lactinex) 1 tab PO TID [facility] Last Admin: 03/11/18 08:59 Dose: 1 tab Levothyroxine Sodium (Synthroid) 25 mcg PO DAILY@0600 [facility] Last Admin: 03/11/18 05:53 Dose: 25 mcg Magnesium Oxide (Mag-Ox) 800 mg PO UNSCH PRN PRN Reason: For Magnesium 1.2 - 1.6 mg/dL Methylprednisolone Sodium Succinate (Solumedrol Inj) 60 mg IV.PUSH Q12H [facility] Last Admin: 03/11/18 05:52 Dose: 60 mg Metronidazole (Flagyl) 500 mg PO Q8HR [facility] Last Admin: 03/11/18 05:53 Dose: 500 mg Morphine Sulfate (Morphine Inj) 2 mg IV.PUSH Q4H PRN PRN Reason: PAIN SCALE 1 TO 10 Last Admin: 03/09/18 23:53 Dose: 2 mg Pantoprazole Sodium (Protonix) 40 mg PO DAILY [facility] Last Admin: 03/10/18 09:24 Dose: 40 mg Potassium Bicarb/Potassium Chloride (K-Lyte Cl Eff) 50 meq PO UNSCH PRN PRN Reason: For Potassium 3.3 - 3.5 mEq/L Potassium Phosphate (K-Phos Original) 2,000 mg PO Q4H PRN PRN Reason: Phosphorus Less Than 2.5 mg/dL Last Admin: 03/03/18 14:17 Dose: 2,000 mg Potassium Phosphate (K-Phos Original) 2,000 mg PO UNSCH PRN PRN Reason: SEE LABEL COMMENTS Promethazine HCl (Phenergan) 25 mg PO Q4H PRN PRN Reason: NAUSEA OR VOMITING Last Admin: 03/09/18 16:03 Dose: 25 mg Sodium Chloride (Ns Flush) 2 ml IV.FLUSH BID [facility] Last Admin: 03/11/18 08:59 Dose: 2 ml Sodium Chloride (Ns Flush) 2 ml IV.FLUSH PRN PRN PRN Reason: FLUSH AFTER USING IV ACCESS Terbutaline Sulfate (Brethine Inj) 1 mg SQ UNSCH PRN PRN Reason: For Extravasation Trimethobenzamide HCl (Tigan Ing) 200 mg IM Q6H PRN PRN Reason: NAUSEA OR VOMITING Last Admin: 03/09/18 23:52 Dose: 200 mg Allergies Allergy/AdvReac Type Severity Reaction Status Date / Time No Known Allergies Allergy Unverified 03/02/18 09:30 Home Medications Medication Instructions Recorded Confirmed Type atorvastatin 80 mg PO 03/02/18 03/03/18 History fenofibrate 160 mg PO 03/02/18 03/03/18 History metformin 1,000 mg PO 03/02/18 03/03/18 History omeprazole 40 mg PO DAILY 03/02/18 03/03/18 History ondansetron [Zofran ODT] 8 mg PO TID PRN 03/02/18 03/03/18 History Women's One Daily 03/03/18 History acetaminophen [Tylenol Extra 500 mg PO DAILY 03/03/18 03/03/18 History Strength] aspirin [Xavier Aspirin] 162 mg PO DAILY 03/03/18 03/03/18 History losartan 25 mg PO DAILY 03/03/18 03/03/18 History potassium gluconate 550 mg PO DAILY 03/03/18 03/03/18 History Physical Exam Vital Signs / I&O: Vital Signs 03/10/18 09:19 03/10/18 09:24 03/10/18 09:29 Temperature Pulse Rate 129 H 130 H 128 H Respiratory Rate 2 L 22 20 Blood Pressure 95/79 L 91/61 L 92/60 L Pulse Oximetry 95 100 100 03/10/18 09:30 03/10/18 09:33 03/10/18 09:36 Temperature Pulse Rate 128 H 129 H 129 H Respiratory Rate 20 20 20 Blood Pressure 87/56 L 93/67 L 95/58 L Pulse Oximetry 100 100 100 03/10/18 09:39 03/10/18 09:42 03/10/18 09:45 Temperature Pulse Rate 129 H 129 H 128 H Respiratory Rate 20 20 20 Blood Pressure 95/61 L 99/57 L 93/64 L Pulse Oximetry 99 100 99 03/10/18 09:48 03/10/18 10:00 03/10/18 12:20 Temperature Pulse Rate 128 H 118 H Respiratory Rate 105 H 24 Blood Pressure 100/54 L Pulse Oximetry 99 93 L 03/10/18 15:00 03/10/18 16:07 03/10/18 16:16 Temperature 98.1 F Pulse Rate 133 H 132 H Respiratory Rate 20 26 H 20 Blood Pressure 90/65 L Pulse Oximetry 97 94 L 03/10/18 19:00 03/10/18 21:10 03/10/18 21:28 Temperature 100 F H Pulse Rate 132 H 129 H Respiratory Rate 18 16 14 Blood Pressure 80/61 L Pulse Oximetry 99 97 03/10/18 23:00 03/10/18 23:15 03/10/18 23:31 Temperature 100.8 F H 100.8 F H 100 F H Pulse Rate 133 H 137 H 131 H Respiratory Rate 15 17 15 Blood Pressure 81/61 L 92/65 L 79/56 L Pulse Oximetry 94 L 92 L 94 L 03/11/18 00:00 03/11/18 00:40 03/11/18 03:00 Temperature 100.8 F H 99.7 F H Pulse Rate 130 H 140 H Respiratory Rate 14 14 17 Blood Pressure 91/58 L 88/60 L Pulse Oximetry 96 98 97 03/11/18 03:17 03/11/18 07:30 03/11/18 08:14 Temperature 100 F H Pulse Rate 141 H Respiratory Rate 14 18 12 Blood Pressure 88/61 L Pulse Oximetry 98 94 L 03/11/18 08:30 03/11/18 08:34 Temperature 100.2 F H Pulse Rate 140 H 136 H Respiratory Rate 12 Blood Pressure 101/68 Pulse Oximetry 95 Intake & Output 03/10/18 03/11/18 03/11/18 18:59 06:59 18:59 Intake Total 2150 / 2150 3220 / 3220 0 / 0 Output Total 1450 / 1450 Balance 700 / 700 3220 / 3220 0 / 0 Weight 63.5 kg Intake: IV 2150 / 2150 2970 / 2970 Bumex Inj 25 mg In 100 ml @ 1 184 / 184 MG/HR 4 mls/hr IV.CONT .[id number] [facility] Rx#:[id number] EPINEPHrine (1:1000) Inj 4 MG 250 / 250 In D5W Inj 246 ML @ 4 MCG/MIN 15 mls/hr IV.CONT TITRATE PRN Rx#:[id number] Versed Inj 50 mg In 50 ml @ 2 100 / 100 MG/HR 2 mls/hr IV.CONT TITRATE PRN Rx#:[id number] Sodium Bicarbonate 8.4% Inj 150 2000 / 2000 1066 / 1066 MEQ In 1/2 Normal Saline Inj 850 ML @ 42 mls/hr IV.CONT . [id number] [facility] Rx#:[id number] Flexbumin 25% Inj 100 ML @ 200 100 / 100 100 / 100 mls/hr IV.SIG NOW ONE Rx#: [id number] Alburx 5% Inj 500 ML @ 250 mls/ 500 / 500 hr IV.SIG ONCE ONE Rx#:[id number] Calcium Chloride Inj 2 GM In NS 120 / 120 Inj 100 ML @ 120 mls/hr IV.SIG NOW ONE Rx#:[id number] Levophed-Dextrose 4 mg/250 ml 250 / 250 Drip 4 mg In 250 ml @ 2 MCG/MIN 7.5 mls/hr IV.SIG TITRATE PRN Rx#:[id number] Zosyn 3.375 GM Premix 50 ML @ 50 / 50 100 / 100 100 mls/hr IV.SIG Q6H [facility] Rx#: [id number] KCl 40 mEq Premix Inj 40 meq In 200 / 200 100 ml @ 25 mls/hr IV.SIG Q2H PRN Rx#:[id number] Flolan (30,000 ng/mL) Neb 62.5 100 / 100 ML In NS Inj 37.5 ML @ 8 mls/hr NEB Q8H [facility] Rx#:[id number] Oral 0 / 0 Other 250 / 250 Rbc As-3 Leukoreduced Unit 250 / 250 [id number] Intake (Blood Product) Amt 0 / 0 0 / 0 Rbc As-3 Leukoreduced Unit 0 / 0 [id number] Rbc As-3 Leukoreduced Unit 0 / 0 [id number] Output: Urine Amount (Catheter) 1450 / 1450 Indwelling Urethral Catheter 1450 / 1450 Other: Other Intake Source Rbc As-3 Leukoreduced Unit Saline Solution [id number] Date of Last Bowel Movement 03/09/18 Neuro: sedated, intubated Heart: tachy Lungs: vented Abdomen: edematous, doesn't react to deep palpation, symmetric fullness, no ecchymoses Vascular: R groin puncture site ok + L pedal signals, no R pedal signals Extremities: R LE cool and pale but clearly viable no wounds Laboratory Results - last 24 hr 03/04/18 03/10/18 03/10/18 11:52 09:00 14:20 WBC RBC Hgb Hct MCV MCH MCHC RDW Plt Count MPV PT INR APTT Puncture Site Patient Temperature O2 Saturation ABG pH ABG pCO2 ABG pO2 ABG HCO3 ABG O2 Content ABG Base Excess ABG Methemoglobin Hemoglobin Carboxyhemoglobin O2 Delivery Device Vent Setting Inspired O2 Critical Value Sodium Potassium Chloride Carbon Dioxide Anion Gap BUN Creatinine Estimated GFR POC Glucose Random Glucose Lactic Acid Calcium Phosphorus Magnesium Total Bilirubin AST ALT Alkaline Phosphatase Total Protein Albumin Urine Color Yellow Urine Clarity Hazy H Urine pH 5.0 Ur Specific Grundy 1.010 Urine Protein 30 H Urine Glucose (UA) Negative Urine Ketones Negative Urine Occult Blood Small H Urine Nitrate Negative Urine Bilirubin Negative Urine Urobilinogen Less than 2 Ur Leukocyte Esterase Negative Urine RBC 2 Urine WBC 4 Ur Squamous Epith Cells 1 Amorphous Sediment Few H Urine Bacteria Rare H Hyaline Casts 1 Granular Casts 1 Urine Mucus Few H Micro UA Comment Cath-culture ind Ur Microscopic Review Not Reportable Urine Culture Comments Cath-cult indicated Blood Type Antibody Screen MTS Gel Crossmatch See Detail Blood Bank Comment 03/10/18 03/10/18 03/10/18 17:15 21:25 21:25 WBC RBC Hgb Hct MCV MCH MCHC RDW Plt Count MPV PT INR APTT Greater than 90.0 H* D Puncture Site Patient Temperature O2 Saturation ABG pH ABG pCO2 ABG pO2 ABG HCO3 ABG O2 Content ABG Base Excess ABG Methemoglobin Hemoglobin Carboxyhemoglobin O2 Delivery Device Vent Setting Inspired O2 Critical Value Sodium Potassium Chloride Carbon Dioxide Anion Gap BUN Creatinine Estimated GFR POC Glucose 162 H Random Glucose Lactic Acid Calcium Phosphorus Magnesium Total Bilirubin AST ALT Alkaline Phosphatase Total Protein Albumin Urine Color Urine Clarity Urine pH Ur Specific Grundy Urine Protein Urine Glucose (UA) Urine Ketones Urine Occult Blood Urine Nitrate Urine Bilirubin Urine Urobilinogen Ur Leukocyte Esterase Urine RBC Urine WBC Ur Squamous Epith Cells Amorphous Sediment Urine Bacteria Hyaline Casts Granular Casts Urine Mucus Micro UA Comment Ur Microscopic Review Urine Culture Comments Blood Type A Positive Antibody Screen Negative MTS Gel Crossmatch See Detail Blood Bank Comment 03/11/18 03/11/18 03/11/18 00:25 03:10 05:00 WBC RBC Hgb Hct MCV MCH MCHC RDW Plt Count MPV PT 27.5 H D INR 2.7 APTT 201.9 H* D 169.0 H* Puncture Site Art line Patient Temperature 98.6 O2 Saturation 96 ABG pH 7.54 H* ABG pCO2 36 L ABG pO2 119 ABG HCO3 31 H ABG O2 Content 7.5 L ABG Base Excess 7.8 H ABG Methemoglobin 1.5 Hemoglobin 5.3 L* Carboxyhemoglobin 1.5 O2 Delivery Device Ventilator Vent Setting Prvc/ac Inspired O2 60 Critical Value Yes Sodium Potassium Chloride Carbon Dioxide Anion Gap BUN Creatinine Estimated GFR POC Glucose Random Glucose Lactic Acid Calcium Phosphorus Magnesium Total Bilirubin AST ALT Alkaline Phosphatase Total Protein Albumin Urine Color Urine Clarity Urine pH Ur Specific Grundy Urine Protein Urine Glucose (UA) Urine Ketones Urine Occult Blood Urine Nitrate Urine Bilirubin Urine Urobilinogen Ur Leukocyte Esterase Urine RBC Urine WBC Ur Squamous Epith Cells Amorphous Sediment Urine Bacteria Hyaline Casts Granular Casts Urine Mucus Micro UA Comment Ur Microscopic Review Urine Culture Comments Blood Type Antibody Screen MTS Gel Crossmatch Blood Bank Comment 03/11/18 03/11/18 03/11/18 05:10 05:10 06:24 WBC 9.8 RBC 1.65 L Hgb 5.4 L* D Hct 15.8 L* MCV 95.6 D MCH 33.0 MCHC 34.5 RDW 27.3 H D Plt Count 98 L D MPV 9.4 PT INR APTT Puncture Site Patient Temperature O2 Saturation ABG pH ABG pCO2 ABG pO2 ABG HCO3 ABG O2 Content ABG Base Excess ABG Methemoglobin Hemoglobin Carboxyhemoglobin O2 Delivery Device Vent Setting Inspired O2 Critical Value Sodium 144 Potassium 4.6 D Chloride 98 Carbon Dioxide 31.5 D Anion Gap 15 BUN 28 H Creatinine 1.66 H Estimated GFR 32 L POC Glucose Random Glucose 232 H Lactic Acid Calcium 8.1 L Phosphorus 3.9 D Magnesium 1.4 L D Total Bilirubin 4.0 H AST 198 H ALT 53 Alkaline Phosphatase 69 Total Protein 4.8 L D Albumin 3.1 L Urine Color Urine Clarity Urine pH Ur Specific Grundy Urine Protein Urine Glucose (UA) Urine Ketones Urine Occult Blood Urine Nitrate Urine Bilirubin Urine Urobilinogen Ur Leukocyte Esterase Urine RBC Urine WBC Ur Squamous Epith Cells Amorphous Sediment Urine Bacteria Hyaline Casts Granular Casts Urine Mucus Micro UA Comment Ur Microscopic Review Urine Culture Comments Blood Type Antibody Screen LoyalBlocks Gel Crossmatch See Detail Blood Bank Comment 03/11/18 03/11/18 03/11/18 07:40 07:40 08:51 WBC RBC Hgb Hct MCV MCH MCHC RDW Plt Count MPV PT INR APTT 138.9 H* Puncture Site Patient Temperature O2 Saturation ABG pH ABG pCO2 ABG pO2 ABG HCO3 ABG O2 Content ABG Base Excess ABG Methemoglobin Hemoglobin Carboxyhemoglobin O2 Delivery Device Vent Setting Inspired O2 Critical Value Sodium Potassium Chloride Carbon Dioxide Anion Gap BUN Creatinine Estimated GFR POC Glucose 278 H Random Glucose Lactic Acid 8.5 H* Calcium Phosphorus Magnesium Total Bilirubin AST ALT Alkaline Phosphatase Total Protein Albumin Urine Color Urine Clarity Urine pH Ur Specific Grundy Urine Protein Urine Glucose (UA) Urine Ketones Urine Occult Blood Urine Nitrate Urine Bilirubin Urine Urobilinogen Ur Leukocyte Esterase Urine RBC Urine WBC Ur Squamous Epith Cells Amorphous Sediment Urine Bacteria Hyaline Casts Granular Casts Urine Mucus Micro UA Comment Ur Microscopic Review Urine Culture Comments Blood Type Antibody Screen MTS Gel Crossmatch Blood Bank Comment Microbiology 03/07/18 16:04 Gram Stain - Final Fluid - Pleural fluid Body Fluid Culture - Final No growth in 72 hours (aerobically and anaerobically) Impressions Chest X-Ray 03/10/18 00:00 CONCLUSION: Bilateral consolidation and effusions. Abdomen/Pelvis CT 03/10/18 00:29 CONCLUSION: 1. Unchanged exam. Bilateral pleural effusions and associated atelectasis. 2. Hepatomegaly with some lobulation to the contour and small volume ascites. This raises concern for possible cirrhosis. 3. Coronary artery atherosclerotic calcifications. Chest X-Ray 03/10/18 11:32 CONCLUSION: Central line as above. Chest X-Ray 03/11/18 05:00 CONCLUSION: Stable chest x-ray with bibasilar opacities characteristic of pleural effusions with associated volume loss and/or airspace consolidation. Assessment and Plan - Assessment (1) Cardiogenic shock Code(s): R57.0 - Cardiogenic shock Status: Acute - Plan 58 yo female with cardiogenic shock and R groin Impella mechanical support device. R LE ischemic but viable. Motor intact per staffing rn 1. Continue to wean impella. Even if R LE worsens, pt needs mechanical support for life-sustaining measures. Once Impella removed, will reassess. 2. May need CTA A/P to r/o RP hematoma if no other sign of ongoing blood loss. Clearly first intervention would be reversal of anticoagulation. 3. Will follow. Philippe Arellano MD FACS [employer] machine repairer [facility] - Heart and Vascular Surgery at [facility] [phone]
[2018-03-11] MEDS: Budesonide-Formoterol 160/4.5 MCG 6 GM Inhaler INH SCH ×2 (09:38→21:31)
--- NOTE | 2018-03-11 09:39 | CATHPROC ---
[employer] HIS Report Study Information Study Number Admission Scheduled Start Study Start [id number] Mar 03 2018 1:33PM 03/10/2018 Mar 10 2018 1:38PM [facility] Cardiac Catheterization Admit Source Facility Department Emergency department [facility] - [facility] Physician and Clinical Staff Initial Wing Mechelle Ratliff Bell Staff Francisco Beavers RN Bell Staff Lisa Palencia RN Other cathlab, cathlab Recorder Jassi Teran RCIS(BS) Scrub Minnie Marsh RT(R) Procedures Performed Procedure Location (Site) Vessel Name Coronary Angiograms LCA Left Coronary Coronary Angiograms RCA Right Coronary Impella Fem Art (right) Femoral Art L Heart Cath LV Gram-hand inj. LV LV Ventricle Equipment Time Drill Presser Description Size Mfg Part Number Used/Scraped [id number] 14:49 ABIOMED PUMPSET, CP IMPELLA 4.0 4.0 Used *[id number] TRANSDUCER, TRUWAVE [id number] 13:42 BLOCK BRUMFIELD * Used W/STOCKCOCK *[id number] INTRODUCER SET, 14:30 [employer] FR 5 [id number] *[id number] Used MICROPUNCTURE STIFF [id number] *[id number] PIGTAIL ANG. 145 INFINITI [id number] CATHETER *[id number] 13:42 Gnzo BLANKET,WARM AIR CCL * Used *[id number] 13:42 Gnzo PACK, CCL CUSTOM * Used *[id number] 13:42 HouseLens PACER PEN, SKIN DUAL W/ RULER * Used *[id number] 13:43 Precise Software SHEATH, FR6.5 PRELUDE 11CM FR 6.5 038ACT Used *[id number] 13:42 Yakimbi MEDICAL WIRE, 3MMJ .035 180CM 180CM Used *[id number] PROBE COVER, STERILE [id number] 13:43 Corepair * Used ULTRASOUND W/ GEL *[id number] 13:42 NAMIC MANIFOLD, 4 PORT * Used *[id number] 13:42 NYCOMED OMNIPAQUE, 350 MG, 150ML 150ML [id number] Used History: Allergies Allergy Reaction No Known Allergies CONFIRM? History: Risk Factors Family History of Hypertension Dyslipidemia Previous DE Previous Heart Failure Premature CAD No Yes No No No Prior Valve Prior PCI Prior CABG Surgery No No No Cerebrovascular Peripheral Artery Chronic Lung On Dialysis Diabetes Diabetes Therapy Disease Disease Disease No No No No Yes Oral History: Stress Tests Stress or Imaging Studies Performed No History: Other Disease Selection Items CHF History: Other Current Smoker No Labs Hgb (g/dl) Hct (%) WBC (l/cumm) Platelets (thousands) 11.60-17.00 35.00-51.00 4.00-11.00 150.00-450.00 9.9 30.8 8.8 195 Glucose (mg/dl) BUN (mg/dl) Creatinine (mg/dl) BUN:Creatinine (1:x) 74.00-106.00 7.00-18.00 0.50-1.30 10.00-20.00 219 17 1.2 14.2 Na (meq/l) K (meq/l) 136.00-145.00 3.50-5.10 140 5.8 INR (PTT:PT) 0.90-1.10 5 Medication Medication Total Dose (Bolus/Oral) Medication Total Dosage/Unit 1% XYLOCAINE 20 mL BUMETANIDE 8 mL/hr FENTANYL 100 mcg/hr FENTANYL 20 mL/hr VERSED 8 mg/hr VERSED 4 mL/hr VITAMIN K 10 mg Medications (Bolus/Oral) Medication Time Given Dosage/Unit Administered By Reason VERSED 03/10/2018 1:58:41 PM 2 mg/hr Patient arrived on 2 mg/hr VERSED via Peripheral IV. Pump/Drip Flow = 0 ml/hr using NaCl .9. FENTANYL 03/10/2018 1:58:42 PM 5 mL/hr Patient arrived on 5 mL/hr FENTANYL via Peripheral IV. Pump/Drip Flow = 0 ml/hr using NaCl .9. BUMETANIDE 03/10/2018 1:58:42 PM 8 mL/hr Patient arrived on 8 mL/hr BUMETANIDE. Pump/Drip Flow = 0 ml/hr using NaCl .9. VERSED 03/10/2018 2:22:00 PM 4 mL/hr Francisco Beavers Patient arrived on 4 mL/hr VERSED given by Francisco Beavers, RN via Peripheral IV. Pump/Drip Flow = 0 ml /hr using [Solution Name]. Ordered by Wing Mechelle Hewitt. 1% XYLOCAINE 03/10/2018 2:26:59 PM 20 mL Wing Mechelle Hewitt 20 mL 1% XYLOCAINE given in lab by Wing Mechelle Hewitt in Right Groin via Subcutaneous. FENTANYL 03/10/2018 2:27:00 PM 100 mcg/hr Francisco Beavers Patient arrived on 100 mcg/hr FENTANYL given by Francisco Beavers RN via Peripheral IV. Pump/Drip Flow = 0 ml/hr using [Solution Name]. Ordered by Wing Mechelle Hewitt. VITAMIN K 03/10/2018 2:47:00 PM 10 mg Lisa Palencia 10 mg VITAMIN K given in lab by Lisa Palencia RN via Peripheral IV. Ordered by Wing Mechelle Hewitt. VERSED 03/10/2018 2:53:00 PM 6 mg/hr Patient arrived on 6 mg/hr VERSED via Peripheral IV. Pump/Drip Flow = 0 ml/hr using NaCl .9. FENTANYL 03/10/2018 2:53:00 PM 15 mL/hr Patient arrived on 15 mL/hr FENTANYL via Peripheral IV. Pump/Drip Flow = 0 ml/hr using NaCl .9. Medication (Drip) Medication Time Given Dosage/Unit Concentration/Unit Diluent (ml) Solution EPINEPHRINE DRIP 03/10/2018 1:58:41 PM 15 mL/hr 4 mL 250 NaCl .9 Patient arrived on 15 mL/hr EPINEPHRINE DRIP via Peripheral IV. Pump/Drip Flow = 937.5 ml/hr using Na Cl .9 with a concentration of 4 mL in 250 ml. HEPARIN DRIP 03/10/2018 3:20:02 PM 1000 units/hr 71243 units 250 D5W 1000 units/hr HEPARIN DRIP given in lab by Francisco Beavers RN via Peripheral IV. Pump/Drip Flow = 10 m l/hr [place] [address] units in 250 ml. Ordered by Wing Mechelle Hewitt. LEVOPHED 03/10/2018 1:58:58 PM 20 mcg/min 4 mg 250 D5W Patient arrived on 20 mcg/min LEVOPHED via Central IV. Pump/Drip Flow = 75 ml/hr using D5W with a con centration of 4 mg in 250 ml. LEVOPHED 03/10/2018 3:24:45 PM 16 mcg/min 4 mg 250 D5W Patient arrived on 16 mcg/min LEVOPHED given by Francisco Beavers RN via Central IV. Pump/Drip Flow = 60 ml/hr using D5W with a concentration of 4 mg in 250 ml. Ordered by Wing Mechelle Hewitt. SODIUM BICARBONATE 03/10/2018 1:58:43 PM 28 mL/hr 150 1000 NaCl .9 DRIP Patient arrived on 28 mL/hr SODIUM BICARBONATE DRIP via Peripheral IV. Pump/Drip Flow = 0 ml/hr using NaCl .9 with a concentration of 150 in 1000 ml. Initial Case Assessment Cardiovascular HR Rhythm Chest Pain 134 stachy 0 Edema Present Skin color Skin None Normal Warm Dry Circulatory - Right Pulses Dorsalis Pedis Femoral 1 1 Scale (0,1,2,3,4,d) Circulatory - Left Pulses Dorsalis Pedis Femoral 1 1 Scale (0,1,2,3,4,d) Neurological State Unresponsive Respiration - General Respiration Rate SpO2 (%) (B/min) 15 100 Final Case Assessment Cardiovascular HR Rhythm Chest Pain 133 stachy 0 Edema Present Skin color Skin None Normal Warm Dry Circulatory - Right Pulses Dorsalis Pedis Femoral 1 1 Scale (0,1,2,3,4,d) Circulatory - Left Pulses Dorsalis Pedis Femoral 1 1 Scale (0,1,2,3,4,d) Neurological State Unresponsive Respiration - General Respiration Rate SpO2 (%) (B/min) 15 100 Chronological Log Time Study Chronological Log 13:57:55 Patient arrived via Bed intubated. Resp. arrived. 13:57:56 Patient Name, D.O.B, / Armband Verified By R.N. 13:57:57 Consent signed by the physician and the patient and verified by the [facility] staff. 13:57:57 Pre-op and post- op instructions given; patient acknowledges understanding of instructions. 13:57:59 Presedation assessment performed by Cane Pusher RN. 13:58:00 MD arrived. 13:58:00 Immediate Presedation assesment performed by physician. 13:58:00 Patient has been NPO for More than 6Hrs. 13:58:01 Skin Breakdown-none visible 13:58:02 Patient Warmer Placed on the Table. 13:58:07 Brandon Prominences Protected 13:58:08 A # ~SIZE~ IV was noted in the Jugular Vein (right). Grade = ~GRADE~ 13:58:09 A # ~SIZE~ IV was noted in the Subclav. Vein (Rt). Grade = ~GRADE~ Patient arrived on 15 mL/hr EPINEPHRINE DRIP via Peripheral IV. Pump/Drip Flow = 937.5 ml/hr us ing NaCl .9 with a 13:58:41 concentration of 4 mL in 250 ml. 13:58:41 Patient arrived on 2 mg/hr VERSED via Peripheral IV. Pump/Drip Flow = 0 ml/hr using NaCl .9 . 13:58:42 Patient arrived on 5 mL/hr FENTANYL via Peripheral IV. Pump/Drip Flow = 0 ml/hr using NaCl .9. 13:58:42 Patient arrived on 8 mL/hr BUMETANIDE. Pump/Drip Flow = 0 ml/hr using NaCl .9. Patient arrived on 28 mL/hr SODIUM BICARBONATE DRIP via Peripheral IV. Pump/Drip Flow = 0 ml/hr using NaCl .9 13:58:43 with a concentration of 150 in 1000 ml. Patient arrived on 20 mcg/min LEVOPHED via Central IV. Pump/Drip Flow = 75 ml/hr using D5W with a concentration 13:58:58 of 4 mg in 250 ml. Vitals capture started with the following parameters, Patient=Adult, Interval=3 min, Initial Pr iuztrt=190 mmHg, 14:03:45 Deflation Rate=5 mmHg, Cuff placed on Left Arm 14:03:54 History and physical on the chart or being dictated. Assessment: Initial Case, ZT=974 BPM, Rhythm=stachy, Chest Pain=0, Edema=None, Color=Normal, Sk in = Warm, Dry Right Pulses: Farrukh Ped=1, Femoral=1 14:06:19 Left Pulses: Farrukh Ped=1, Femoral=1 Neurological: State=Unresponsive Respiration: Resp=15 B/min, RaN7=458 % Vitals capture started with the following parameters, Patient=Adult, Interval=3 min, Initial Pr wqcqfo=525 mmHg, 14:07:11 Deflation Rate=5 mmHg, Cuff placed on Left Arm 14:07:53 EO=152 bpm, NIBP=85/61 mmhg, SpO2=99.0 %, Resp=24 B/min 14:09:04 Reference ECG taken 14:10:33 WN=183 bpm, PYIE=095/75 mmhg, SpO2=98.0 %, Resp=24 B/min 14:13:32 Bilateral groins prepped with 2% chlorhexidine, and draped after a 3 minute waiting time. 14:14:18 CJ=566 bpm, NIBP=89/64 mmhg, SpO2=98.0 %, Resp=24 B/min 14:16:31 HD=175 bpm, NIBP=96/81 mmhg, SpO2=98 %, Resp=24 B/min 14:17:11 Contrast Scanned 14:19:59 Pressure channel 1 zeroed. 14:20:10 BD=670 bpm, NIBP=73/38 mmhg, SpO2=96.0 %, Resp=24 B/min Patient arrived on 4 mL/hr VERSED given by Francisco Beavers RN via Peripheral IV. Pump/Drip Flow = 0 ml/hr using 14:22:00 [Solution Name]. Ordered by Wing Mechelle Hewitt. 14:22:30 DP=318 bpm, NIBP=86/72 mmhg, SpO2=97.0 %, Resp=24 B/min 14:25:32 OT=776 bpm, FSUV=870/83 mmhg, SpO2=96.0 %, Resp=24 B/min Time Out. Correct patient, correct procedure, correct physician, labs, allergies, and equipment verified with slabber 14::57 team present. Fire risk assesment completed (see hard stop sheet for coding). Time Out Conc urred by MD and individual staff in procedure. 14:26:58 Case Start 14::59 20 mL 1% XYLOCAINE given in lab by Wing Mechelle Hewitt in Right Groin via Subcutaneous. Patient arrived on 100 mcg/hr FENTANYL given by Francisco Beavers RN via Peripheral IV. Pump/Drip Flow = 0 ml/hr using 14:27:00 [Solution Name]. Ordered by Wing Mechelle Hewitt. 14:28:40 BA=849 bpm, OGRC=981/74 mmhg, SpO2=96.0 %, Resp=15 B/min 14:32:22 ZV=798 bpm, NIBP=85/66 mmhg, SpO2=97.0 %, Resp=24 B/min 14:32:55 Access site was Right Femoral Artery. A INTRODUCER SET, MICROPUNCTURE STIFF FR 5 was advanced into the Fem Art (right) using the Perc utaneous 14::58 technique. A SHEATH, FR6.5 PRELUDE 11CM FR 6.5 was exchanged in the Fem Art (right). This was necessary in order to 14:33:01 accomodate a larger catheter. 14:34:35 XK=472 bpm, NIBP=82/63 mmhg, SpO2=98.0 %, Resp=24 B/min A JL 4.0 CATHETER 125CM FR 5 was advanced over a wire. OMNIPAQUE, 350 MG, 150ML 150ML was used for 14:34:53 injections. Recorded Pressure: Ao, ON=535, Condition=Condition 1 14:36:14 (Aorta) Ao 83/57/69 14:36:24 The LCA was injected and visualized at various angles. OMNIPAQUE, 350 MG, 150ML 150ML used . After removing the current catheter a JR 4.0 INFINITI CATHETER FR 5 was advanced over a WIRE, 3 MMJ .035 180CM 14:37:43 180CM. 14:38:51 HS=986 bpm, NIBP=81/61 mmhg, SpO2=97.0 %, Resp=24 B/min 14:40:19 The RCA was injected and visualized at various angles. OMNIPAQUE, 350 MG, 150ML 150ML used . 14:40:35 MS=819 bpm, NIBP=91/70 mmhg, SpO2=98.0 %, Resp=24 B/min 14:43:35 SD=937 bpm, NIBP=95/76 mmhg, SpO2=98.0 %, Resp=24 B/min 14:46:41 A 14F Impellna sheath was advanced into the Fem Art (right) using the ~TECHNIQUE~ technique . 14:46:42 FM=003 bpm, NIBP=89/68 mmhg, SpO2=96.0 %, Resp=24 B/min 14:47:00 10 mg VITAMIN K given in lab by Lisa Palencia RN via Peripheral IV. Ordered by Wing Mechelle Hewitt. 14:49:38 EI=697 bpm, NIBP=93/64 mmhg, SpO2=97.0 %, Resp=24 B/min 14:50:38 An injection in the Fem Art (right) was made through the 14F IMPELLA sheath. A PIGTAIL ANG. 145 INFINITI CATHETER FR 6 was advanced over a wire. OMNIPAQUE, 350 MG, 150ML 15 0ML was 14:52:00 used for injections. 14:52:36 HG=786 bpm, GPED=193/81 mmhg, SpO2=97.0 %, Resp=24 B/min 14:53:00 Patient arrived on 6 mg/hr VERSED via Peripheral IV. Pump/Drip Flow = 0 ml/hr using NaCl .9 . 14:53:00 Patient arrived on 15 mL/hr FENTANYL via Peripheral IV. Pump/Drip Flow = 0 ml/hr using NaCl .9. 14:55:47 PX=790 bpm, MTRL=743/55 mmhg, SpO2=96.0 %, Resp=24 B/min 14:58:43 PD=887 bpm, NIBP=94/71 mmhg, SpO2=96.0 %, Resp=24 B/min 15:01:41 LH=646 bpm, NIBP=85/63 mmhg, SpO2=98.0 %, Resp=24 B/min 15:01:53 consulting with and A PIGTAIL ANG. 145 INFINITI CATHETER FR 6 was advanced over a wire. OMNIPAQUE, 350 MG, 150ML 15 0ML was 15:04:34 used for injections. 15:04:41 IP=573 bpm, NIBP=73/50 mmhg, SpO2=99.0 %, Resp=24 B/min Recorded Pressure: LV, VV=015, Condition=Condition 1 15:07:15 (Left Ventricle) LV 102/23/31 15:07:31 The LV was manually injected with 10 cc's and visualized. OMNIPAQUE, 350 MG, 150ML 150ML us ed. 15:08:06 The previous wire was exchanged for an IMPELLA wire. 15:08:59 AQ=011 bpm, TRAF=290/91 mmhg, SpO2=96.0 %, Resp=24 B/min 15:10:54 TB=341 bpm, JKBA=614/31 mmhg, SpO2=96.0 %, Resp=24 B/min An PUMPSET, CP IMPELLA 4.0 4.0 was advanced into the left ventricle . Proper placement was con firmed under 15:11:43 fluoroscopy and the catheter was sutured in place. 15:13:42 BA=501 bpm, NIBP=82/70 mmhg, SpO2=95.0 %, Resp=24 B/min 15:15:38 Wire removed 15:16:02 IMPELLA started. 15:17:21 JZ=409 bpm, EJVW=215/76 mmhg, SpO2=98.0 %, Resp=24 B/min 15:19:50 EA=597 bpm, NIBP=98/54 mmhg, SpO2=96.0 %, Resp=24 B/min 1000 units/hr HEPARIN DRIP given in lab by Francisco Beavers RN via Peripheral IV. Pump/Drip Flow = 10 ml/hr using D5W 15:20:02 [place] [address] units in 250 ml. Ordered by Wing Mechelle Hewitt. 15:20:17 Impella sheath peeled away. 15:22:34 In the Fem Art (right) the 14F IMPELLA sheath was stat locked in place by Minnie Marsh R T(R). 15:23:23 OQ=288 bpm, LVFP=339/89 mmhg, SpO2=95.0 %, Resp=24 B/min Patient arrived on 16 mcg/min LEVOPHED given by Francisco Beavers RN via Central IV. Pump/Drip Thanh w = 60 ml/hr using 15:24:45 D5W with a concentration of 4 mg in 250 ml. Ordered by Wing Mechelle Hewitt. 15:27:09 ID=765 bpm, NIBP=69/47 mmhg, SpO2=97.0 %, Resp=24 B/min Vitals capture started with the following parameters, Patient=Adult, Interval=3 min, Initial Pr virevb=410 mmHg, 15:28:28 Deflation Rate=5 mmHg, Cuff placed on Left Arm Vitals capture started with the following parameters, Patient=Adult, Interval=3 min, Initial Pr hcwewg=887 mmHg, 15:30:22 Deflation Rate=5 mmHg, Cuff placed on Left Arm 15:31:12 Case End (Physician broke scrub) Assessment: Final Case, DH=849 BPM, Rhythm=stachy, Chest Pain=0, Edema=None, Color=Normal, Skin = Warm, Dry Right Pulses: Farrukh Ped=1, Femoral=1 15:31:18 Left Pulses: Farrukh Ped=1, Femoral=1 Neurological: State=Unresponsive Respiration: Resp=15 B/min, PtS9=992 % 15::38 Sterile dressing applied to site 15::39 No case complications noted. 15::39 Cine recording checked. 15::41 Bedside Report will be given. 15::47 A Left Heart Cath was performed. Vitals capture started with the following parameters, Patient=Adult, Interval=3 min, Initial Pr mtdiro=717 mmHg, 15:32:39 Deflation Rate=5 mmHg, Cuff placed on Left Arm 15:34:02 XZ=664 bpm, NIBP=88/66 mmhg, SpO2=99.0 %, Resp=24 B/min 15:37:27 OK=227 bpm, NIBP=94/75 mmhg, SpO2=97.0 %, Resp=24 B/min 15:39:42 EL=670 bpm, NIBP=97/74 mmhg, SpO2=97.0 %, Resp=24 B/min 15:42:04 XA=309 bpm, NIBP=98/77 mmhg, Resp=24 B/min 15:49:31 Patient moved to stretcher End Study - Contrast Media Used In Study Contrast Total Opened (mL) Total Used (mL) Total Wasted (mL) Omnipaque 65 65 0 End Study - Maximum Contrast Load Max Contrast Load (mL) 254.2 End Study - Radiation Exposure Fluoro Time (minutes) 5.2 End Study - Patient Disposition Complications Transferred To Interventional Outcome No Critical Care Bed successful
[2018-03-11] MEDS ORDERED: Gelatin 12 MM/7 MM Topical Foam ONE (10:08)
[2018-03-11] MEDS: fentaNYL 10 mcg/mL Premix Drip 2,500 MCG/250 ML BAG IV.SIG PRN (11:54)
[2018-03-11] MEDS: Pantoprazole Inj 40 MG Vial IV.PUSH SCH (12:20)
[2018-03-11] MEDS: Milrinone Inj 20 MG in Sodium Chlor 0.9% Inj 80 ML IV.CONT SCH (12:46)
[2018-03-11 14:01] LABS: Hematocrit 28.9 % (35.0-46.0); Hemoglobin 10.1 gm/dL (11.6-15.3); Mean Corpuscular HGB Conc 34.9 % (32.0-36.0); Mean Corpuscular Hemoglobin 31.1 pg (27.0-34.0); Mean Platelet Volume 9.2 fL (7.0-11.0); Platelet Count 77 th/mm3 (150-450); Red Blood Count 3.24 mil/mm3 (4.00-5.30); Red Cell Distribution Width 20.4 % (11.6-17.2); White Blood Count 8.9 th/mm3 (4.0-11.0)
[2018-03-11 14:13] LABS: Alanine Aminotransferase 77 U/L (10-53); Albumin 3.2 g/dL (3.4-5.0); Alkaline Phosphatase 66 U/L (45-117); Anion Gap 15 meq/L (5-15); Aspartate Aminotransferase 269 U/L (15-37); Blood Urea Nitrogen 29 mg/dL (7-18); Calcium 9.5 mg/dL (8.5-10.1); Carbon Dioxide 32.5 meq/L (21.0-32.0); Chloride 92 meq/L (98-107); Glomerular Filtration Rate 29 mL/min (>89); Glucose,Random 290 mg/dL (74-106); Magnesium 1.7 mg/dL (1.5-2.5); Potassium 4.1 meq/L (3.5-5.1); Sodium 139 meq/L (136-145); Total Protein 5.3 g/dL (6.4-8.2)
--- NOTE | 2018-03-11 14:56 | P.PNNP ---
Subjective Interval history: patient is on the ventilator. Excellent urine output today: 3 liters so far. On Milrinone, Vasopressin and Levophed. On Fentanyl and Versed. On Impella. Right lower extremity ischemia: seen by vascular surgery. Physical Exam Vital signs: Vital Signs 03/10/18 15:00 03/10/18 16:07 03/10/18 16:16 Temperature 98.1 F Pulse Rate 133 H 132 H Respiratory Rate 20 26 H 20 Blood Pressure 90/65 L Pulse Oximetry 97 94 L 03/10/18 19:00 03/10/18 21:10 03/10/18 21:28 Temperature 100 F H Pulse Rate 132 H 129 H Respiratory Rate 18 16 14 Blood Pressure 80/61 L Pulse Oximetry 99 97 03/10/18 23:00 03/10/18 23:15 03/10/18 23:31 Temperature 100.8 F H 100.8 F H 100 F H Pulse Rate 133 H 137 H 131 H Respiratory Rate 15 17 15 Blood Pressure 81/61 L 92/65 L 79/56 L Pulse Oximetry 94 L 92 L 94 L 03/11/18 00:00 03/11/18 00:40 03/11/18 03:00 Temperature 100.8 F H 99.7 F H Pulse Rate 130 H 140 H Respiratory Rate 14 14 17 Blood Pressure 91/58 L 88/60 L Pulse Oximetry 96 98 97 03/11/18 03:17 03/11/18 07:30 03/11/18 08:14 Temperature 100 F H Pulse Rate 141 H Respiratory Rate 14 18 12 Blood Pressure 88/61 L Pulse Oximetry 98 94 L 03/11/18 08:30 03/11/18 08:34 03/11/18 09:27 Temperature 100.2 F H 100.3 F H Pulse Rate 140 H 136 H 129 H Respiratory Rate 12 13 Blood Pressure 101/68 112/71 Pulse Oximetry 95 94 L 03/11/18 09:45 03/11/18 09:59 03/11/18 10:41 Temperature 99.4 F 100 F H Pulse Rate 128 H 129 H Respiratory Rate 13 12 12 Blood Pressure 107/70 120/76 Pulse Oximetry 94 L 98 03/11/18 11:04 03/11/18 12:09 03/11/18 12:26 Temperature 100.7 F H 100.5 F H 100.1 F H Pulse Rate 129 H 119 H 113 H Respiratory Rate 12 12 12 Blood Pressure 110/77 93/72 L 95/71 L Pulse Oximetry 92 L 94 L 03/11/18 13:00 Temperature Pulse Rate Respiratory Rate 21 Blood Pressure Pulse Oximetry 97 Intake & Output 03/10/18 03/11/18 03/11/18 18:59 06:59 18:59 Intake Total 2150 / 2150 3220 / 3220 2232 / 2232 Output Total 1450 / 1450 Balance 700 / 700 3220 / 3220 2232 / 2232 Weight 63.5 kg Intake: IV 2150 / 2150 2970 / 2970 1000 / 1000 Bumex Inj 25 mg In 100 ml @ 1 184 / 184 MG/HR 4 mls/hr IV.CONT .[id number] [facility] Rx#:[id number] EPINEPHrine (1:1000) Inj 4 MG 250 / 250 In D5W Inj 246 ML @ 4 MCG/MIN 15 mls/hr IV.CONT TITRATE PRN Rx#:[id number] Versed Inj 50 mg In 50 ml @ 2 100 / 100 50 / 50 MG/HR 2 mls/hr IV.CONT TITRATE PRN Rx#:[id number] Primacor Inj 20 MG In NS Inj 80 100 / 100 ML @ 0.375 MCG/KG/MIN 6.86 mls /hr IV.CONT .[id number] [facility] Rx#: [id number] Sodium Bicarbonate 8.4% Inj 150 2000 / 2000 1066 / 1066 MEQ In 1/2 Normal Saline Inj 850 ML @ 42 mls/hr IV.CONT . [id number] [facility] Rx#:[id number] Pitressin Inj 40 UNIT In D5W 100 / 100 Inj 98 ML @ 0.01 UNITS/MIN 1.5 mls/hr IV.CONT TITRATE PRN Rx#: [id number] Flexbumin 25% Inj 100 ML @ 200 100 / 100 100 / 100 mls/hr IV.SIG NOW ONE Rx#: [id number] Alburx 5% Inj 500 ML @ 250 mls/ 500 / 500 hr IV.SIG ONCE ONE Rx#:[id number] Calcium Chloride Inj 2 GM In NS 120 / 120 Inj 100 ML @ 120 mls/hr IV.SIG NOW ONE Rx#:[id number] Levophed-Dextrose 4 mg/250 ml 250 / 250 500 / 500 Drip 4 mg In 250 ml @ 2 MCG/MIN 7.5 mls/hr IV.SIG TITRATE PRN Rx#:[id number] Zosyn 3.375 GM Premix 50 ML @ 50 / 50 100 / 100 100 mls/hr IV.SIG Q6H [facility] Rx#: [id number] KCl 40 mEq Premix Inj 40 meq In 200 / 200 100 ml @ 25 mls/hr IV.SIG Q2H PRN Rx#:[id number] fentaNYL 10 mcg/mL Premix Drip 250 / 250 2,500 mcg In 250 ml @ 50 MCG/HR 5 mls/hr IV.SIG TITRATE PRN Rx #:[id number] Flolan (30,000 ng/mL) Neb 62.5 100 / 100 ML In NS Inj 37.5 ML @ 8 mls/hr NEB Q8H [facility] Rx#:[id number] Oral 0 / 0 Other 250 / 250 100 / 100 Rbc As-3 Leukoreduced Unit 100 / 100 [id number] Rbc As-3 Leukoreduced Unit 250 / 250 [id number] Intake (Blood Product) Amt 0 / 0 1132 / 1132 Plasma Thawed 5 Day Cp2d Unit 332 / 332 [id number] Rbc As-3 Leukoreduced Unit 400 / 400 [id number] Rbc As-3 Leukoreduced Unit 400 / 400 [id number] Rbc As-3 Leukoreduced Unit 0 / 0 [id number] Rbc As-3 Leukoreduced Unit 0 / 0 [id number] Output: Urine Amount (Catheter) 1450 / 1450 Indwelling Urethral Catheter 1450 / 1450 Other: Other Intake Source Rbc As-3 Leukoreduced Unit Saline Solution [id number] Date of Last Bowel Movement 03/09/18 Narrative: GENERAL:on the ventilator, unresponsive. HEENT: Head is normocephalic without any lesions or masses noted. Facial features are symmetric. NECK: Supple without any masses. Trachea midline no deviation. No JVD, no bruits are appreciated CARDIAC: Regular rhythm, regular rate. S1/S2 are heard. No murmurs gallops or rubs. LUNGS: Diminished breath sounds noted throughout. Mild expiratory wheezes. No use of accessory muscles on inspiration or expiration. ABDOMEN: Soft, Nondistended. Bowel sounds heard in all 4 quadrants. No organomegaly or masses. EXTREMITIES: no edema, pulses are equal bilaterally. No cyanosis or clubbing - Urinary Catheter Management Female External Cath placed during this visit: yes Reason for continuing: Hourly intake/output Insertion date: 03/07/18 Insertion time: 17:00 Indwelling Urethral Catheter Cath placed during this visit: yes, but has since been removed by the nurse Reason for continuing: Hourly intake/output Insertion date: 03/10/18 Insertion time: 09:30 Removal date: 03/08/18 Removal time: 09:25 Assessment and Plan - Assessment (1) Acute kidney injury Code(s): N17.9 - Acute kidney failure, unspecified Status: Acute Plan: Creatinine has worsened today, but she has excellent urine output. Will continue to monitor. No need for renal replacement therapy today. Avoid nephrotoxic agents. 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 Has history of lymphoma. Cardiology on the case. Supportive measures as mentioned above. (3) Ischemic leg Code(s): I99.8 - Other disorder of circulatory system Status: Acute Plan: Vascular surgery on the case.
[2018-03-11] MEDS ORDERED: Albumin Human 25% Inj 100 ML IV.SIG ONE (16:00)
[2018-03-11] MEDS ORDERED: Gelatin Size 100 Topical Foam ONE ×2 (16:01→18:36)
--- NOTE | 2018-03-11 17:33 | ECHRPT ---
Indication: HEART FAILURE CONCLUSIONS * PLEASE LOOK AT IMPELLA PLACEMENT* technically limited study, impella grossly appears tocross the aortic valve with tip toward the lv a pex BP: / HR: Rhythm: MEASUREMENTS (Male / Female) Normal Values Technical Quality: 2D ECHO LV Diastolic Diameter PLAX 4.1 cm 4.2 - 5.9 / 3.9 - 5.3 cm LV Systolic Diameter PLAX 3.7 cm IVS Diastolic Thickness 0.8 cm 0.6 - 1.0 / 0.6 - 0.9 cm LVPW Diastolic Thickness 0.7 cm 0.6 - 1.0 / 0.6 - 0.9 cm LV Relative Wall Thickness 0.4 RV Internal Dim ED PLAX 1.6 cm DOPPLER Mitral E Point Velocity 47.9 cm/s Mitral A Point Velocity 83.4 cm/s Mitral E to A Ratio 0.6 TR Peak Velocity 175.0 cm/s TR Peak Gradient 12.3 mmHg Right Atrial Pressure 10.0 mmHg Pulmonary Artery Systolic Pressu 22.3 mmHg Right Ventricular Systolic Press 22.3 mmHg FINDINGS LEFT VENTRICLE Normal left ventricular size. Wall thickness is normal. The left ventricular systolic function is severely reduced with an estimated ejection fraction in th e range of 20%. RIGHT VENTRICLE The right ventricular systoilc function is severely decreased. LEFT ATRIUM The left atrial size is normal. RIGHT ATRIUM The right atrial size is normal. ATRIAL SEPTUM Normal atrial septal thickness without atrial level shunting by limited color doppler interrogation. AORTA The aortic root and proximal ascending aorta are normal in size on limited imaging. MITRAL VALVE Structurally normal mitral valve. No mitral valve stenosis or regurgitation. AORTIC VALVE Trace aortic valve regurgitation. TRICUSPID VALVE Structurally normal tricuspid valve. No tricuspid valve stenosis or regurgitation. PULMONARY VALVE No pulmonary valve regurgitation or stenosis. VESSELS The inferior vena cava is normal in size. PERICARDIUM No pericardial effusion. Jordan Quick MD, FACC, FSCAI (Electronically Signed) Final Date:11 March 2018 17:32
[2018-03-11 19:30] LABS: Baso % (Auto) 0.2 % (0.0-2.0); Hematocrit 28.5 % (35.0-46.0); Hemoglobin 10.5 gm/dL (11.6-15.3); Lymph # (Auto) 0.4 th/mm3 (1.0-4.8); Lymph % (Auto) 4.8 % (9.0-44.0); Mean Corpuscular Hemoglobin 33.2 pg (27.0-34.0); Mean Corpuscular Volume 90.3 fL (80.0-100.0); Mean Platelet Volume 8.7 fL (7.0-11.0); Mono # (Auto) 0.5 th/mm3 (0.0-0.9); Mono % (Auto) 6.1 % (0.0-8.0); Neut # (Auto) 7.2 th/mm3 (1.8-7.7); Neut % (Auto) 88.9 % (16.0-70.0); Platelet Count 70 th/mm3 (150-450); Red Blood Count 3.16 mil/mm3 (4.00-5.30); Red Cell Distribution Width 17.6 % (11.6-17.2); White Blood Count 8.1 th/mm3 (4.0-11.0)
[2018-03-11 19:37] LABS: INR 1.9 Ratio; Prothrombin Time 19.3 sec (9.8-11.6)
[2018-03-11 19:43] LABS: Activated Partial Thrombo Time 117.1 sec (24.3-30.1)
[2018-03-11 19:46] LABS: Mean Corpuscular HGB Conc 36.7 % (32.0-36.0)
[2018-03-11 19:47] LABS: Albumin 3.4 g/dL (3.4-5.0); Anion Gap 12 meq/L (5-15); Aspartate Aminotransferase 329 U/L (15-37); Blood Urea Nitrogen 30 mg/dL (7-18); Calcium 8.4 mg/dL (8.5-10.1); Carbon Dioxide 34.7 meq/L (21.0-32.0); Chloride 90 meq/L (98-107); Glomerular Filtration Rate 29 mL/min (>89); Glucose,Random 247 mg/dL (74-106); Magnesium 1.6 mg/dL (1.5-2.5); Potassium 3.9 meq/L (3.5-5.1); Sodium 137 meq/L (136-145)
[2018-03-11 19:48] LABS: Alanine Aminotransferase 90 U/L (10-53)
[2018-03-11 19:50] LABS: Alkaline Phosphatase 60 U/L (45-117); Total Protein 5.4 g/dL (6.4-8.2)
[2018-03-11 19:53] LABS: Hematocrit ND % (35.0-46.0); Hemoglobin ND gm/dL (11.6-15.3); Mean Corpuscular HGB Conc ND % (32.0-36.0); Mean Corpuscular Hemoglobin ND pg (27.0-34.0); Mean Corpuscular Volume ND fL (80.0-100.0); Mean Platelet Volume ND fL (7.0-11.0); Platelet Count ND th/mm3 (150-450); Red Blood Count ND mil/mm3 (4.00-5.30); Red Cell Distribution Width ND % (11.6-17.2); White Blood Count ND th/mm3 (4.0-11.0)
[2018-03-11 19:56] LABS: Activated Partial Thrombo Time ND sec (24.3-30.1); Fibrinogen ND mg/dL (227-377); INR ND Ratio; Prothrombin Time ND sec (9.8-11.6)
[2018-03-11 19:59] LABS: Potassium ND meq/L (3.5-5.1); Sodium ND meq/L (136-145)
[2018-03-11 20:00] LABS: Carbon Dioxide ND meq/L (21.0-32.0); Chloride ND meq/L (98-107)
[2018-03-11] MEDS ORDERED: Amiodarone Inj 150 MG in Dextrose 5% in Water Inj 97 ML IV.SIG ONE ×2 (20:00)
[2018-03-11 20:01] LABS: Anion Gap ND meq/L (5-15); Blood Urea Nitrogen ND mg/dL (7-18); Glomerular Filtration Rate ND mL/min (>89); Glucose,Random ND mg/dL (74-106)
[2018-03-11 20:02] LABS: Alanine Aminotransferase ND U/L (10-53); Albumin ND g/dL (3.4-5.0); Alkaline Phosphatase ND U/L (45-117); Aspartate Aminotransferase ND U/L (15-37); Calcium ND mg/dL (8.5-10.1); Total Protein ND g/dL (6.4-8.2)
[2018-03-11 20:35] LABS: Platelet Morphology Normal (Normal)
[2018-03-11 20:36] LABS: Spherocytes 2+
--- NOTE | 2018-03-11 21:23 | P.PNCA ---
Subjective Interval history: remains sedated on ventilator Cardiac output improved HR better control Bedside Echo showed Impella catheter appropriate position. Right groin oozing. Physical Exam Vital signs: Vital Signs 03/10/18 21:28 03/10/18 23:00 03/10/18 23:15 Temperature 100.8 F H 100.8 F H Pulse Rate 129 H 133 H 137 H Respiratory Rate 14 15 17 Blood Pressure 81/61 L 92/65 L Pulse Oximetry 94 L 92 L 03/10/18 23:31 03/11/18 00:00 03/11/18 00:40 Temperature 100 F H 100.8 F H Pulse Rate 131 H 130 H Respiratory Rate 15 14 14 Blood Pressure 79/56 L 91/58 L Pulse Oximetry 94 L 96 98 03/11/18 03:00 03/11/18 03:17 03/11/18 07:00 Temperature 99.7 F H 101.9 F H Pulse Rate 140 H 140 H Respiratory Rate 17 14 12 Blood Pressure 88/60 L 64/49 L Pulse Oximetry 97 98 94 L 03/11/18 07:30 03/11/18 08:14 03/11/18 08:30 Temperature 100 F H 100.2 F H Pulse Rate 141 H 140 H Respiratory Rate 18 12 12 Blood Pressure 88/61 L 101/68 Pulse Oximetry 94 L 95 03/11/18 08:34 03/11/18 09:27 03/11/18 09:45 Temperature 100.3 F H 99.4 F Pulse Rate 136 H 129 H 128 H Respiratory Rate 13 13 Blood Pressure 112/71 107/70 Pulse Oximetry 94 L 94 L 03/11/18 09:59 03/11/18 10:00 03/11/18 10:41 Temperature 100 F H Pulse Rate 129 H 129 H Respiratory Rate 12 12 Blood Pressure 120/76 Pulse Oximetry 98 03/11/18 11:00 03/11/18 11:04 03/11/18 12:00 Temperature 100 F H 100.7 F H Pulse Rate 129 H 129 H 119 H Respiratory Rate 12 12 Blood Pressure 90/65 L 110/77 Pulse Oximetry 93 L 92 L 03/11/18 12:09 03/11/18 12:26 03/11/18 13:00 Temperature 100.5 F H 100.1 F H Pulse Rate 119 H 113 H Respiratory Rate 12 12 21 Blood Pressure 93/72 L 95/71 L Pulse Oximetry 94 L 97 03/11/18 14:00 03/11/18 15:00 03/11/18 15:55 Temperature 100.8 F H Pulse Rate 114 H 120 H 119 H Respiratory Rate 13 16 Blood Pressure 89/66 L Pulse Oximetry 92 L 03/11/18 16:00 03/11/18 16:08 03/11/18 16:51 Temperature 100.7 F H Pulse Rate 109 H 107 H Respiratory Rate 16 11 L Blood Pressure 91/65 L Pulse Oximetry 88 L 93 L 03/11/18 17:07 03/11/18 18:00 03/11/18 20:15 Temperature 100.1 F H Pulse Rate 106 H 106 H Respiratory Rate 13 10 L Blood Pressure 96/73 L Pulse Oximetry 93 L 97 03/11/18 20:32 03/11/18 20:43 03/11/18 20:46 Temperature 100.3 F H 100.3 F H Pulse Rate 97 H 97 H 97 H Respiratory Rate 14 10 L 10 L Blood Pressure 109/78 108/77 Pulse Oximetry 95 96 Intake & Output 03/11/18 03/11/18 03/12/18 06:59 18:59 06:59 Intake Total 3220 / 3220 2932 / 2932 193.3 / 193.3 Output Total 4150 / 4150 Balance 3220 / 3220 2932 / 2932 -3956.7 / -3956.7 Weight 63.5 kg Intake: IV 2970 / 2970 1300 / 1300 189.3 / 189.3 Bumex Inj 25 mg In 100 ml @ 1 184 / 184 MG/HR 4 mls/hr IV.CONT .[id number] [facility] Rx#:[id number] EPINEPHrine (1:1000) Inj 4 MG 250 / 250 In D5W Inj 246 ML @ 4 MCG/MIN 15 mls/hr IV.CONT TITRATE PRN Rx#:[id number] Versed Inj 50 mg In 50 ml @ 2 100 / 100 50 / 50 89.3 / 89.3 MG/HR 2 mls/hr IV.CONT TITRATE PRN Rx#:[id number] Primacor Inj 20 MG In NS Inj 80 100 / 100 ML @ 0.375 MCG/KG/MIN 6.86 mls /hr IV.CONT .[id number] [facility] Rx#: [id number] Sodium Bicarbonate 8.4% Inj 150 1066 / 1066 MEQ In 1/2 Normal Saline Inj 850 ML @ 42 mls/hr IV.CONT . [id number] [facility] Rx#:[id number] Pitressin Inj 40 UNIT In D5W 100 / 100 Inj 98 ML @ 0.01 UNITS/MIN 1.5 mls/hr IV.CONT TITRATE PRN Rx#: [id number] Flexbumin 25% Inj 100 ML @ 200 100 / 100 mls/hr IV.SIG NOW ONE Rx#: [id number] Alburx 5% Inj 500 ML @ 250 mls/ 500 / 500 hr IV.SIG ONCE ONE Rx#:[id number] Cordarone Inj 150 MG In D5W Inj 100 / 100 97 ML @ 600 mls/hr IV.SIG ONCE ONE Rx#:[id number] Calcium Chloride Inj 2 GM In NS 120 / 120 Inj 100 ML @ 120 mls/hr IV.SIG NOW ONE Rx#:[id number] Magnesium Sulfate Inj 2 GM In 100 / 100 NS Inj 96 ML @ 50 mls/hr IV.SIG UNSCH PRN Rx#:[id number] Levophed-Dextrose 4 mg/250 ml 250 / 250 500 / 500 Drip 4 mg In 250 ml @ 2 MCG/MIN 7.5 mls/hr IV.SIG TITRATE PRN Rx#:[id number] Zosyn 3.375 GM Premix 50 ML @ 100 / 100 100 / 100 100 mls/hr IV.SIG Q6H [facility] Rx#: [id number] KCl 40 mEq Premix Inj 40 meq In 200 / 200 100 ml @ 25 mls/hr IV.SIG Q2H [facility] Rx#:[id number] fentaNYL 10 mcg/mL Premix Drip 250 / 250 2,500 mcg In 250 ml @ 50 MCG/HR 5 mls/hr IV.SIG TITRATE PRN Rx #:[id number] Flolan (30,000 ng/mL) Neb 62.5 100 / 100 100 / 100 ML In NS Inj 37.5 ML @ 8 mls/hr NEB Q8H [facility] Rx#:[id number] Other 250 / 250 100 / 100 Rbc As-3 Leukoreduced Unit 100 / 100 [id number] Rbc As-3 Leukoreduced Unit 250 / 250 [id number] Intake (Blood Product) Amt 0 / 0 1532 / 1532 4 / 4 Plasma Thawed 5 Day Cp2d Unit 332 / 332 [id number] Plt Pheresis B Leukoreduced 4 / 4 Unit [id number] Pre-Pooled Cryo Thawed 10units 0 / 0 Unit [id number] Rbc As-3 Leukoreduced Unit 400 / 400 [id number] Rbc As-3 Leukoreduced Unit 400 / 400 [id number] Rbc As-3 Leukoreduced Unit 0 / 0 [id number] Rbc As-3 Leukoreduced Unit 400 / 400 [id number] Rbc As-3 Leukoreduced Unit 0 / 0 [id number] Output: Urine Amount (Catheter) 4150 / 4150 Indwelling Urethral Catheter 4150 / 4150 Other: Other Intake Source Rbc As-3 Leukoreduced Unit Saline Solution [id number] # Bowel Movements 0 - Constitutional Comments: sedated on ventilator - Routine HEENT Exam Head: Present: normocephalic, atraumatic - Routine Neck Exam Absent: carotid bruit - Routine Cardiovascular Exam Present: S1, S2, tachycardia - Routine Abdominal Exam Present: soft - Routine Extremities Exam Present: vascular access (right groin soft, continue oozing of blood, sandbag placed.) Comments: Left foot warm.right foot cold with diminished digital pulse, minimal capillary refill. Not cyanotic. - Urinary Catheter Management Female External Cath placed during this visit: yes Reason for continuing: Hourly intake/output Insertion date: 03/07/18 Insertion time: 17:00 Indwelling Urethral Catheter Cath placed during this visit: yes, but has since been removed by the nurse Reason for continuing: Hourly intake/output Insertion date: 03/10/18 Insertion time: 09:30 Removal date: 03/08/18 Removal time: 09:25 Assessment and Plan - Assessment (1) Systolic and diastolic CHF, acute Code(s): I50.41 - Acute combined systolic (congestive) and diastolic (congestive ) heart failure Status: Acute (2) GIB (gastrointestinal bleeding) Code(s): K92.2 - Gastrointestinal hemorrhage, unspecified Status: Acute (3) Hypotension Code(s): I95.9 - Hypotension, unspecified Status: Acute (4) Cardiogenic shock Code(s): R57.0 - Cardiogenic shock Status: Acute - Plan 58-year-old female with no prior cardiac history being seen for new onset cardiomyopathy. The patient presented 03/02 with nausea, vomiting, diarrhea. She was found to have anemia and GI bleeding, status post clipping of bleeding hemorrhoid, status post transfusion 1 unit PRBCs 03/04. Echocardiogram shows new cardiomyopathy with EF 3035%. 1. New onset CMP, LVEF 30-35% per echo, deteriorating to Cardiogenic shock required multiple pressors, flash pulmonary edema required intubation. Urgent LHC showed LVEF 10-20%, patent coronary arteries. Insertion of external heat assist system into heart, percutaneous approach for assistance with cardiac output using Impella pump, continuous. 03/11/18: IV heparin was on hold due to high PTT, and right groin access site oozing. Impella pump normal function, in good position per bedside echo done by Dr Thompson. Right RD MANAGER angiogram showed limited antegrate flow after a 14 fr sheath insertion. Discussed issue with Dr. Rosa, vascular surgeon recommended continue Impella insertion, monitor distal limb circulation, hopefully,outflow will be improved with improvement of cardiac output and reduced pressors administration. Sincerely appreciate help from our cutter operator asbestos shingle, and ICU/cathlab staff. I am seeing patient for Dr. Kayla Pickett until 03/12/18.
[2018-03-11] MEDS: Multivitamin Inj 10 ML, Thiamine Inj 100 MG, Folic Acid Inj 1 MG in Sodium Chlor 0.9% I... IV.SIG SCH (21:35)
[2018-03-12] MEDS: Hydrocortisone/Pramoxine Foam 10 GM Can RECTAL SCH ×3 (01:27→17:14)
[2018-03-12] MEDS: Diphenoxylate/Atropine 2.5/0.025 MG Tablet PO SCH ×2 (01:27→06:22)
[2018-03-12] MEDS: Piperacil/Tazo 3.375 GM Premix 50 ML IV.SIG SCH ×5 (01:28→23:42)
[2018-03-12] MEDS: HEPARIN IV.SIG PRN ×2 (01:50)
[2018-03-12] MEDS: WATER IV.SIG PRN ×2 (01:50)
[2018-03-12] MEDS: DEXTROSE 5% IV.SIG PRN ×2 (01:50)
[2018-03-12] MEDS: Magnesium Sulfate Inj 2 GM in Sodium Chlor 0.9% Inj 96 ML IV.SIG PRN (01:53)
[2018-03-12] MEDS: Midazolam 50 MG/50 ML Inj 50 MG/50 ML BAG IV.CONT PRN ×3 (03:15→18:58)
[2018-03-12] MEDS: Milrinone Inj 20 MG in Sodium Chlor 0.9% Inj 80 ML IV.CONT SCH ×3 (04:08→20:49)
[2018-03-12] MEDS: MethylPREDNISolone Sod Succinate Inj 125 MG/2 ML Vial IV.PUSH SCH ×2 (04:31→16:59)
[2018-03-12] MEDS: Epoprostenol (30,000/mL) Neb 62.5 ML in Sodium Chlor 0.9% Inj 37.5 ML NEB SCH ×2 (04:32→13:24)
[2018-03-12] MEDS: Gelatin 12 MM/7 MM Topical Foam TOPICAL PRN ×2 (04:57→14:48)
[2018-03-12 05:51] LABS: Activated Partial Thrombo Time 58.2 sec (24.3-30.1); INR 1.5 Ratio; Prothrombin Time 15.4 sec (9.8-11.6)
[2018-03-12 06:06] LABS: Alanine Aminotransferase 102 U/L (10-53); Albumin 3.6 g/dL (3.4-5.0); Alkaline Phosphatase 77 U/L (45-117); Anion Gap 13 meq/L (5-15); Aspartate Aminotransferase 373 U/L (15-37); Blood Urea Nitrogen 31 mg/dL (7-18); Calcium 8.2 mg/dL (8.5-10.1); Carbon Dioxide 35.7 meq/L (21.0-32.0); Chloride 84 meq/L (98-107); Glomerular Filtration Rate 29 mL/min (>89); Glucose,Random 256 mg/dL (74-106); Magnesium 2.2 mg/dL (1.5-2.5); Phosphorus 3.7 mg/dL (2.5-4.9); Potassium 3.2 meq/L (3.5-5.1); Sodium 133 meq/L (136-145); Total Protein 6.5 g/dL (6.4-8.2)
[2018-03-12] MEDS: metroNIDAZOLE 500 MG Tablet PO SCH ×3 (06:22→21:38)
[2018-03-12 06:59] LABS: ABG Base Excess 11.9 mmol/L (-2-2); ABG PCO2 44 mmHg (38-42); ABG PO2 160 mmHG (61-120)
--- NOTE | 2018-03-12 07:42 | P.PNCA ---
Subjective Interval history: RN at bedside. Went into rapid A. fib yesterday around 6 PM, last about 30 minutes, converted to NSR after amiodarone bolus, remains on amiodarone drip. CI at 4am, 4.5. Good urine output. Rectal bleeding noted after cleaning this morning. Physical Exam Vital signs: Vital Signs 03/11/18 08:14 03/11/18 08:30 03/11/18 08:34 Temperature 100 F H 100.2 F H Pulse Rate 141 H 140 H 136 H Respiratory Rate 12 12 Blood Pressure 88/61 L 101/68 Pulse Oximetry 95 03/11/18 09:27 03/11/18 09:45 03/11/18 09:59 Temperature 100.3 F H 99.4 F Pulse Rate 129 H 128 H Respiratory Rate 13 13 12 Blood Pressure 112/71 107/70 Pulse Oximetry 94 L 94 L 98 03/11/18 10:00 03/11/18 10:41 03/11/18 11:00 Temperature 100 F H 100 F H Pulse Rate 129 H 129 H 129 H Respiratory Rate 12 12 Blood Pressure 120/76 90/65 L Pulse Oximetry 93 L 03/11/18 11:04 03/11/18 12:00 03/11/18 12:09 Temperature 100.7 F H 100.5 F H Pulse Rate 129 H 119 H 119 H Respiratory Rate 12 12 Blood Pressure 110/77 93/72 L Pulse Oximetry 92 L 94 L 03/11/18 12:26 03/11/18 13:00 03/11/18 14:00 Temperature 100.1 F H Pulse Rate 113 H 114 H Respiratory Rate 12 21 Blood Pressure 95/71 L Pulse Oximetry 97 03/11/18 15:00 03/11/18 15:55 03/11/18 16:00 Temperature 100.8 F H Pulse Rate 120 H 119 H 109 H Respiratory Rate 13 16 Blood Pressure 89/66 L Pulse Oximetry 92 L 03/11/18 16:08 03/11/18 16:51 03/11/18 17:07 Temperature 100.7 F H 100.1 F H Pulse Rate 107 H 106 H Respiratory Rate 16 11 L 13 Blood Pressure 91/65 L 96/73 L Pulse Oximetry 88 L 93 L 93 L 03/11/18 18:00 03/11/18 19:00 03/11/18 19:20 Temperature 100.5 F H Pulse Rate 106 H 98 H 96 H Respiratory Rate 10 L Blood Pressure 112/80 Pulse Oximetry 95 03/11/18 20:15 03/11/18 20:32 03/11/18 20:43 Temperature 100.3 F H Pulse Rate 97 H 97 H Respiratory Rate 10 L 14 10 L Blood Pressure 109/78 Pulse Oximetry 97 95 03/11/18 20:46 03/11/18 21:00 03/11/18 21:14 Temperature 100.3 F H 100.2 F H Pulse Rate 97 H 99 H 99 H Respiratory Rate 10 L 10 L Blood Pressure 108/77 108/78 108/78 Pulse Oximetry 96 96 03/11/18 22:09 03/11/18 22:45 03/11/18 23:00 Temperature 100.1 F H Pulse Rate 103 H 111 H Respiratory Rate 14 11 L Blood Pressure 106/79 Pulse Oximetry 96 97 03/11/18 23:15 03/11/18 23:23 03/12/18 00:00 Temperature 100.1 F H 100.0 F H Pulse Rate 107 H 107 H 107 H Respiratory Rate 11 L 12 Blood Pressure 111/87 108/83 103/79 Pulse Oximetry 96 93 L 03/12/18 00:09 03/12/18 00:51 03/12/18 03:00 Temperature 99.9 F H 100.7 F H Pulse Rate 107 H 104 H Respiratory Rate 13 14 17 Blood Pressure 105/81 104/82 Pulse Oximetry 96 97 98 03/12/18 03:50 03/12/18 04:18 03/12/18 05:45 Temperature 101 F H Pulse Rate 103 H Respiratory Rate 18 Blood Pressure 97/71 L Pulse Oximetry 97 Intake & Output 03/11/18 03/12/18 03/12/18 18:59 06:59 18:59 Intake Total 2932 / 2932 4618.0 / 4618.0 400 / 400 Output Total 4150 / 4150 3325 / 3325 Balance 2932 / 2932 468.0 / 468.0 -2925 / -2925 Weight 152 lb 1.903 oz Intake: IV 1300 / 1300 2993.0 / 2993.0 Cordarone Inj 450 MG In D5W Inj 259 / 259 241 ML @ 1 MG/MIN 33.33 mls/hr IV.CONT TITRATE PRN Rx#: [id number] Versed Inj 50 mg In 50 ml @ 2 50 / 50 132.2 / 132.2 MG/HR 2 mls/hr IV.CONT TITRATE PRN Rx#:[id number] Primacor Inj 20 MG In NS Inj 80 100 / 100 153 / 153 ML @ 0.375 MCG/KG/MIN 6.86 mls /hr IV.CONT .[id number] [facility] Rx#: [id number] Pitressin Inj 40 UNIT In D5W 100 / 100 Inj 98 ML @ 0.01 UNITS/MIN 1.5 mls/hr IV.CONT TITRATE PRN Rx#: [id number] Ofirmev Inj 1,000 mg In 100 ml 100 / 100 @ As Directed 400 mls/hr IV.SIG ONCE ONE Rx#:[id number] Flexbumin 25% Inj 100 ML @ 60 100 / 100 mls/hr IV.SIG ONCE ONE Rx#: [id number] Cordarone Inj 150 MG In D5W Inj 100 / 100 97 ML @ 600 mls/hr IV.SIG ONCE ONE Rx#:[id number] Heparin Inj 25,000 UNIT In D5W 450 / 450 Inj 500 ML @ As Directed IV.SIG UNSCH PRN Rx#:[id number] Magnesium Sulfate Inj 2 GM In 100 / 100 100 / 100 NS Inj 96 ML @ 50 mls/hr IV.SIG UNSCH PRN Rx#:[id number] MVI-12 Inj 10 ML Thiamine Inj 550 / 550 100 MG Folvite Inj 1 MG In NS Inj 500 ML @ 125 mls/hr IV.SIG Q24H [facility] Rx#:[id number] Levophed-Dextrose 4 mg/250 ml 500 / 500 512 / 512 Drip 4 mg In 250 ml @ 2 MCG/MIN 7.5 mls/hr IV.SIG TITRATE PRN Rx#:[id number] Zosyn 3.375 GM Premix 50 ML @ 100 / 100 100 / 100 100 mls/hr IV.SIG Q6H [facility] Rx#: [id number] KCl 40 mEq Premix Inj 40 meq In 100 / 100 100 ml @ 25 mls/hr IV.SIG UNSCH PRN Rx#:[id number] fentaNYL 10 mcg/mL Premix Drip 250 / 250 2,500 mcg In 250 ml @ 50 MCG/HR 5 mls/hr IV.SIG TITRATE PRN Rx #:[id number] Flolan (30,000 ng/mL) Neb 62.5 100 / 100 216.8 / 216.8 ML In NS Inj 37.5 ML @ 8 mls/hr NEB Q8H [facility] Rx#:[id number] Tube Irrigant 400 / 400 Other 100 / 100 Rbc As-3 Leukoreduced Unit 100 / 100 [id number] Intake (Blood Product) Amt 1532 / 1532 1625 / 1625 Plasma Thawed 5 Day Cp2d Unit 330 / 330 [id number] Plasma Thawed 5 Day Cp2d Unit 325 / 325 [id number] Plasma Thawed 5 Day Cp2d Unit 332 / 332 [id number] Plasma Thawed 5 Day Cp2d Unit 300 / 300 [id number] Plt Pheresis A Leukoreduced 230 / 230 Unit [id number] Plt Pheresis B Leukoreduced 230 / 230 Unit [id number] Pre-Pooled Cryo Thawed 10units 210 / 210 Unit [id number] Rbc As-3 Leukoreduced Unit 400 / 400 [id number] Rbc As-3 Leukoreduced Unit 400 / 400 [id number] Rbc As-3 Leukoreduced Unit 400 / 400 [id number] Rbc As-3 Leukoreduced Unit 0 / 0 [id number] Output: Urine Amount (Catheter) 4150 / 4150 3325 / 3325 Indwelling Urethral Catheter 4150 / 4150 3325 / 3325 Other: Date of Last Bowel Movement 03/12/18 # Bowel Movements 0 # Incontinent Bowel Movements 2 Narrative: GENERAL: Well-developed well-nourished. Currently stable. NECK: No carotid bruits. No JVD. CARDIOVASCULAR: Regular rate and rhythm. No murmur appreciated. RESPIRATORY: Mechanically ventilated. Clear to auscultation. Breath sounds equal bilaterally. MUSCULOSKELETAL: No edema. Absent pulses right lower extremity, temperature fair. NEUROLOGICAL: Intubated, sedated. - Urinary Catheter Management Female External Cath placed during this visit: yes Reason for continuing: Hourly intake/output Insertion date: 03/07/18 Insertion time: 17:00 Indwelling Urethral Catheter Cath placed during this visit: yes, but has since been removed by the nurse Reason for continuing: Hourly intake/output Insertion date: 03/10/18 Insertion time: 09:30 Removal date: 03/08/18 Removal time: Assessment and Plan - Plan 58-year-old female with no prior cardiac history being seen for new onset cardiomyopathy. The patient presented 03/02 with nausea, vomiting, diarrhea. She was found to have anemia and GI bleeding, status post clipping of bleeding hemorrhoid, status post transfusion 1 unit PRBCs 03/04. Echocardiogram shows new cardiomyopathy with EF 3035%. New onset CM, LVEF 30-35% per echo 03/07, deteriorating to Cardiogenic shock required multiple pressors, flash pulmonary edema required intubation, urgent LHC showed LVEF 10-20%, patent coronary arteries. Insertion of external heat assist system into heart, percutaneous approach for assistance with cardiac output using Impella pump, continuous; vascular surgery monitoring distal limb circulation. A. fib RVR: Short episode 03/11, converted to NSR with amiodarone bolus, continue GTT. Patient seen and evaluated. Chart reviewed. Agree with above. Suspected presentation with colitis and developed cytokine storm with resultant multisystem organ failure. NICM EF 10-20% Cardiogenic shock with Impella 2.5 ADHF AF, currently NSR on amiodarone gtt at 0.5mg/kg/min, cannot be anticoagulated with active bleeding, thrombocytopenia and coagulopathy Severe coagulopathy with INR 5, improving s/p ffp severe blood loss anemia, actively bleeding/oozing from RFA impella site, s/p multiple PRBC transfusions thrombocytopenia Right leg ischemia suspect due to impella cannulation cirrhosis of the liver, due to alcoholism Acute renal failure, currently oliguric Acute respiratory failure, requiring mechanical ventilation She is currently hemodynamically stable. Urine output is picking up a bit. Bleeding is being controlled with manual pressure and transfusion of blood products. Continue diuretic therapy, she is highly net positive in volume due to prior hemodynamic collapse. Continue amiodarone gtt at 0.5mg/kg/min. her prognosis is very poor/grave. I agree with palliative care discussions with to help guide goals of care.
[2018-03-12] MEDS: Potassium Chlor 40 mEq Premix 40 MEQ/100 ML PIGGYBACK IV.SIG PRN ×2 (08:16→12:26)
[2018-03-12] MEDS: Budesonide-Formoterol 160/4.5 MCG 6 GM Inhaler INH SCH ×2 (08:34→20:49)
[2018-03-12] MEDS: Insulin NovoLOG Aspart Correctional Sugar Inj SQ SCH ×4 (09:26→21:37)
[2018-03-12] MEDS: Vasopressin Inj 40 UNIT in Dextrose 5% in Water Inj 98 ML IV.CONT PRN ×2 (09:26)
[2018-03-12] MEDS: Pantoprazole Inj 40 MG Vial IV.PUSH SCH (09:27)
--- NOTE | 2018-03-12 09:29 | US ---
EXAM DATE: 03/12/2018 9:24 AM EDT AGE/SEX: 58 years / Female INDICATIONS: Fever. Abnormal lab values. CLINICAL DATA: This is the patient's initial encounter. Patient reports that signs and symptoms have been present for 4 - 6 months and indicates a pain score of Nonresponsive. MEDICAL/SURGICAL HISTORY: Diabetes. Gastroesophageal reflux disease. Hyperlipidemia. Lymphoma. Tongue tumor. Chemotherapy. Hysterectomy. Appendectomy. Tubal ligation. Arthroplasty of knee. To nsillectomy. COMPARISON: [facility] – [place], CT ABDOMEN & PELVIS W/O CONTRAST, 03/10/2018. . MEASUREMENTS: Liver:__ 20.6 cm. Common Bile Duct:__ 6mm. FINDINGS: Liver: Heterogeneous nodular liver. Portal Vein: Hepatopedal flow seen in portal vein. Common Duct: No intraluminal mass or stone visualized. Gallbladder: No evidence for cholelithiasis. Gallbladder wall thickening. Gallbladder wall measures 8 mm. There is fluid adjacent to the gallbladder but could be related to ascites. Pancreas: Not well visualized. Right Kidney: Normal echotexture and cortical thickness. No mass or hydronephrosis. Other: Small abdominal ascites. CONCLUSION: 1. Cirrhotic liver with small amount of abdominal ascites. 2. Gallbladder wall thickening. Electronically signed by: Tomy Palmer MD 03/12/2018 9:28 AM EDT
--- NOTE | 2018-03-12 09:56 | P.PNNP ---
Subjective Interval history: Remains intubated, on multiple inotropic medications and pressors, despite all is still hypotensive. Impala device ongoing. Her renal function improved, and she is non oliguric. <Minnie Yeung - Last Filed: 03/12/18 09:47> Physical Exam Vital signs: Vital Signs 03/11/18 09:59 03/11/18 10:00 03/11/18 10:41 Temperature 100 F H Pulse Rate 129 H 129 H Respiratory Rate 12 12 Blood Pressure 120/76 Pulse Oximetry 98 03/11/18 11:00 03/11/18 11:04 03/11/18 12:00 Temperature 100 F H 100.7 F H Pulse Rate 129 H 129 H 119 H Respiratory Rate 12 12 Blood Pressure 90/65 L 110/77 Pulse Oximetry 93 L 92 L 03/11/18 12:09 03/11/18 12:26 03/11/18 13:00 Temperature 100.5 F H 100.1 F H Pulse Rate 119 H 113 H Respiratory Rate 12 12 21 Blood Pressure 93/72 L 95/71 L Pulse Oximetry 94 L 97 03/11/18 14:00 03/11/18 15:00 03/11/18 15:55 Temperature 100.8 F H Pulse Rate 114 H 120 H 119 H Respiratory Rate 13 16 Blood Pressure 89/66 L Pulse Oximetry 92 L 03/11/18 16:00 03/11/18 16:08 03/11/18 16:51 Temperature 100.7 F H Pulse Rate 109 H 107 H Respiratory Rate 16 11 L Blood Pressure 91/65 L Pulse Oximetry 88 L 93 L 03/11/18 17:07 03/11/18 18:00 03/11/18 19:00 Temperature 100.1 F H Pulse Rate 106 H 106 H 98 H Respiratory Rate 13 Blood Pressure 96/73 L Pulse Oximetry 93 L 03/11/18 19:20 03/11/18 20:15 03/11/18 20:32 Temperature 100.5 F H Pulse Rate 96 H 97 H Respiratory Rate 10 L 10 L 14 Blood Pressure 112/80 Pulse Oximetry 95 97 03/11/18 20:43 03/11/18 20:46 03/11/18 21:00 Temperature 100.3 F H 100.3 F H Pulse Rate 97 H 97 H 99 H Respiratory Rate 10 L 10 L Blood Pressure 109/78 108/77 108/78 Pulse Oximetry 95 96 03/11/18 21:14 03/11/18 22:09 03/11/18 22:45 Temperature 100.2 F H 100.1 F H Pulse Rate 99 H 103 H Respiratory Rate 10 L 14 11 L Blood Pressure 108/78 106/79 Pulse Oximetry 96 96 97 03/11/18 23:00 03/11/18 23:15 03/11/18 23:23 Temperature 100.1 F H 100.0 F H Pulse Rate 111 H 107 H 107 H Respiratory Rate 11 L 12 Blood Pressure 111/87 108/83 Pulse Oximetry 96 93 L 03/12/18 00:00 03/12/18 00:09 03/12/18 00:51 Temperature 99.9 F H Pulse Rate 107 H 107 H Respiratory Rate 13 14 Blood Pressure 103/79 105/81 Pulse Oximetry 96 97 03/12/18 03:00 03/12/18 03:50 03/12/18 04:18 Temperature 100.7 F H Pulse Rate 104 H 103 H Respiratory Rate 17 18 Blood Pressure 104/82 97/71 L Pulse Oximetry 98 97 03/12/18 05:45 03/12/18 08:20 Temperature 101 F H Pulse Rate Respiratory Rate 16 Blood Pressure Pulse Oximetry 99 Intake & Output 03/11/18 03/12/18 03/12/18 18:59 06:59 18:59 Intake Total 2932 / 2932 4618.0 / 4618.0 650 / 650 Output Total 4150 / 4150 3325 / 3325 Balance 2932 / 2932 468.0 / 468.0 -2675 / -2675 Weight 69 kg Intake: IV 1300 / 1300 2993.0 / 2993.0 250 / 250 Cordarone Inj 450 MG In D5W Inj 259 / 259 241 ML @ 1 MG/MIN 33.33 mls/hr IV.CONT TITRATE PRN Rx#: [id number] Versed Inj 50 mg In 50 ml @ 2 50 / 50 132.2 / 132.2 MG/HR 2 mls/hr IV.CONT TITRATE PRN Rx#:[id number] Primacor Inj 20 MG In NS Inj 80 100 / 100 153 / 153 ML @ 0.375 MCG/KG/MIN 6.86 mls /hr IV.CONT .[id number] [facility] Rx#: [id number] Pitressin Inj 40 UNIT In D5W 100 / 100 Inj 98 ML @ 0.01 UNITS/MIN 1.5 mls/hr IV.CONT TITRATE PRN Rx#: [id number] Ofirmev Inj 1,000 mg In 100 ml 100 / 100 @ As Directed 400 mls/hr IV.SIG ONCE ONE Rx#:[id number] Flexbumin 25% Inj 100 ML @ 60 100 / 100 mls/hr IV.SIG ONCE ONE Rx#: [id number] Cordarone Inj 150 MG In D5W Inj 100 / 100 97 ML @ 600 mls/hr IV.SIG ONCE ONE Rx#:[id number] Heparin Inj 25,000 UNIT In D5W 450 / 450 Inj 500 ML @ As Directed IV.SIG UNSCH PRN Rx#:[id number] Magnesium Sulfate Inj 2 GM In 100 / 100 100 / 100 NS Inj 96 ML @ 50 mls/hr IV.SIG UNSCH PRN Rx#:[id number] MVI-12 Inj 10 ML Thiamine Inj 550 / 550 100 MG Folvite Inj 1 MG In NS Inj 500 ML @ 125 mls/hr IV.SIG Q24H [facility] Rx#:[id number] Levophed-Dextrose 4 mg/250 ml 500 / 500 512 / 512 250 / 250 Drip 4 mg In 250 ml @ 2 MCG/MIN 7.5 mls/hr IV.SIG TITRATE PRN Rx#:[id number] Zosyn 3.375 GM Premix 50 ML @ 100 / 100 100 / 100 100 mls/hr IV.SIG Q6H [facility] Rx#: [id number] KCl 40 mEq Premix Inj 40 meq In 100 / 100 100 ml @ 25 mls/hr IV.SIG UNSCH PRN Rx#:[id number] fentaNYL 10 mcg/mL Premix Drip 250 / 250 2,500 mcg In 250 ml @ 50 MCG/HR 5 mls/hr IV.SIG TITRATE PRN Rx #:[id number] Flolan (30,000 ng/mL) Neb 62.5 100 / 100 216.8 / 216.8 ML In NS Inj 37.5 ML @ 8 mls/hr NEB Q8H [facility] Rx#:[id number] Tube Irrigant 400 / 400 Other 100 / 100 Rbc As-3 Leukoreduced Unit 100 / 100 [id number] Intake (Blood Product) Amt 1532 / 1532 1625 / 1625 Plasma Thawed 5 Day Cp2d Unit 330 / 330 [id number] Plasma Thawed 5 Day Cp2d Unit 325 / 325 [id number] Plasma Thawed 5 Day Cp2d Unit 332 / 332 [id number] Plasma Thawed 5 Day Cp2d Unit 300 / 300 [id number] Plt Pheresis A Leukoreduced 230 / 230 Unit [id number] Plt Pheresis B Leukoreduced 230 / 230 Unit [id number] Pre-Pooled Cryo Thawed 10units 210 / 210 Unit [id number] Rbc As-3 Leukoreduced Unit 400 / 400 [id number] Rbc As-3 Leukoreduced Unit 400 / 400 [id number] Rbc As-3 Leukoreduced Unit 400 / 400 [id number] Rbc As-3 Leukoreduced Unit 0 / 0 [id number] Output: Urine Amount (Catheter) 4150 / 4150 3325 / 3325 Indwelling Urethral Catheter 4150 / 4150 3325 / 3325 Other: Date of Last Bowel Movement 03/12/18 # Bowel Movements 0 # Incontinent Bowel Movements 2 - Constitutional no acute distress Comments: intubated, unresponsive - Routine HEENT Exam Head: Present: normocephalic - Routine Neck Exam Present: supple - Routine Respiratory Exam Present: patient mechanically ventilated, CTA bilaterally - Routine Cardiovascular Exam Present: S1, S2 - Routine Abdominal Exam Present: soft, normoactive bowel sounds - Routine Extremities Exam Present: pulses intact, vascular access. Absent: edema - Routine Skin Exam Present: intact, dry, warm - Routine Neurological Exam unable to assess - Detailed Neurological Exam: Coma Scale Eye Opening: None Verbal Response: None Motor Response: None [place] Coma Scale Total: 3 - Routine Psychiatric Exam Present: unable to assess - Urinary Catheter Management Female External Cath placed during this visit: yes Reason for continuing: Hourly intake/output Insertion date: 03/07/18 Insertion time: 17:00 Indwelling Urethral Catheter Cath placed during this visit: yes, but has since been removed by the nurse Reason for continuing: Hourly intake/output Insertion date: 03/10/18 Insertion time: 09:30 Removal date: 03/08/18 Removal time: 09:25 <Minnie Yeung - Last Filed: 03/12/18 09:47> Vital signs: Vital Signs 03/11/18 12:09 03/11/18 12:26 03/11/18 13:00 Temperature 100.5 F H 100.1 F H Pulse Rate 119 H 113 H Respiratory Rate 12 12 21 Blood Pressure 93/72 L 95/71 L Pulse Oximetry 94 L 97 03/11/18 14:00 03/11/18 15:00 03/11/18 15:55 Temperature 100.8 F H Pulse Rate 114 H 120 H 119 H Respiratory Rate 13 16 Blood Pressure 89/66 L Pulse Oximetry 92 L 03/11/18 16:00 03/11/18 16:08 03/11/18 16:51 Temperature 100.7 F H Pulse Rate 109 H 107 H Respiratory Rate 16 11 L Blood Pressure 91/65 L Pulse Oximetry 88 L 93 L 03/11/18 17:07 03/11/18 18:00 03/11/18 19:00 Temperature 100.1 F H Pulse Rate 106 H 106 H 98 H Respiratory Rate 13 Blood Pressure 96/73 L Pulse Oximetry 93 L 03/11/18 19:20 03/11/18 20:15 03/11/18 20:32 Temperature 100.5 F H Pulse Rate 96 H 97 H Respiratory Rate 10 L 10 L 14 Blood Pressure 112/80 Pulse Oximetry 95 97 03/11/18 20:43 03/11/18 20:46 03/11/18 21:00 Temperature 100.3 F H 100.3 F H Pulse Rate 97 H 97 H 99 H Respiratory Rate 10 L 10 L Blood Pressure 109/78 108/77 108/78 Pulse Oximetry 95 96 03/11/18 21:14 03/11/18 22:09 03/11/18 22:45 Temperature 100.2 F H 100.1 F H Pulse Rate 99 H 103 H Respiratory Rate 10 L 14 11 L Blood Pressure 108/78 106/79 Pulse Oximetry 96 96 97 03/11/18 23:00 03/11/18 23:15 03/11/18 23:23 Temperature 100.1 F H 100.0 F H Pulse Rate 111 H 107 H 107 H Respiratory Rate 11 L 12 Blood Pressure 111/87 108/83 Pulse Oximetry 96 93 L 03/12/18 00:00 03/12/18 00:09 03/12/18 00:51 Temperature 99.9 F H Pulse Rate 107 H 107 H Respiratory Rate 13 14 Blood Pressure 103/79 105/81 Pulse Oximetry 96 97 03/12/18 03:00 03/12/18 03:50 03/12/18 04:18 Temperature 100.7 F H Pulse Rate 104 H 103 H Respiratory Rate 17 18 Blood Pressure 104/82 97/71 L Pulse Oximetry 98 97 03/12/18 05:45 03/12/18 08:20 03/12/18 09:59 Temperature 101 F H 100.2 F H Pulse Rate 116 H Respiratory Rate 16 Blood Pressure 82/62 L Pulse Oximetry 99 99 03/12/18 10:35 03/12/18 11:05 03/12/18 11:23 Temperature 100.4 F H 100.8 F H Pulse Rate 109 H 102 H Respiratory Rate 20 15 16 Blood Pressure 113/79 110/76 Pulse Oximetry 97 03/12/18 11:26 03/12/18 11:29 Temperature 100.2 F H 100.9 F H Pulse Rate 110 H 97 H Respiratory Rate 12 16 Blood Pressure 91/66 L 120/80 Pulse Oximetry Intake & Output 03/11/18 03/12/18 03/12/18 18:59 06:59 18:59 Intake Total 2932 / 2932 4618.0 / 4618.0 1900 / 1900 Output Total 4150 / 4150 3325 / 3325 Balance 2932 / 2932 468.0 / 468.0 -1425 / -1425 Weight 69 kg Intake: IV 1300 / 1300 2993.0 / 2993.0 300 / 300 Cordarone Inj 450 MG In D5W Inj 259 / 259 241 ML @ 1 MG/MIN 33.33 mls/hr IV.CONT TITRATE PRN Rx#: [id number] Versed Inj 50 mg In 50 ml @ 2 50 / 50 132.2 / 132.2 50 / 50 MG/HR 2 mls/hr IV.CONT TITRATE PRN Rx#:[id number] Primacor Inj 20 MG In NS Inj 80 100 / 100 153 / 153 ML @ 0.375 MCG/KG/MIN 6.86 mls /hr IV.CONT .[id number] [facility] Rx#: [id number] Pitressin Inj 40 UNIT In D5W 100 / 100 Inj 98 ML @ 0.01 UNITS/MIN 1.5 mls/hr IV.CONT TITRATE PRN Rx#: [id number] Ofirmev Inj 1,000 mg In 100 ml 100 / 100 @ As Directed 400 mls/hr IV.SIG ONCE ONE Rx#:[id number] Flexbumin 25% Inj 100 ML @ 60 100 / 100 mls/hr IV.SIG ONCE ONE Rx#: [id number] Cordarone Inj 150 MG In D5W Inj 100 / 100 97 ML @ 600 mls/hr IV.SIG ONCE ONE Rx#:[id number] Heparin Inj 25,000 UNIT In D5W 450 / 450 Inj 500 ML @ As Directed IV.SIG UNSCH PRN Rx#:[id number] Magnesium Sulfate Inj 2 GM In 100 / 100 100 / 100 NS Inj 96 ML @ 50 mls/hr IV.SIG UNSCH PRN Rx#:[id number] MVI-12 Inj 10 ML Thiamine Inj 550 / 550 100 MG Folvite Inj 1 MG In NS Inj 500 ML @ 125 mls/hr IV.SIG Q24H [facility] Rx#:[id number] Levophed-Dextrose 4 mg/250 ml 500 / 500 512 / 512 250 / 250 Drip 4 mg In 250 ml @ 2 MCG/MIN 7.5 mls/hr IV.SIG TITRATE PRN Rx#:[id number] Zosyn 3.375 GM Premix 50 ML @ 100 / 100 100 / 100 100 mls/hr IV.SIG Q6H [facility] Rx#: [id number] KCl 40 mEq Premix Inj 40 meq In 100 / 100 100 ml @ 25 mls/hr IV.SIG UNSCH PRN Rx#:[id number] fentaNYL 10 mcg/mL Premix Drip 250 / 250 2,500 mcg In 250 ml @ 50 MCG/HR 5 mls/hr IV.SIG TITRATE PRN Rx #:[id number] Flolan (30,000 ng/mL) Neb 62.5 100 / 100 216.8 / 216.8 ML In NS Inj 37.5 ML @ 8 mls/hr NEB Q8H [facility] Rx#:[id number] Tube Irrigant 400 / 400 Other 100 / 100 Rbc As-3 Leukoreduced Unit 100 / 100 [id number] Intake (Blood Product) Amt 1532 / 1532 1625 / 1625 1200 / 1200 Plasma Thawed 5 Day Cp2d Unit 330 / 330 [id number] Plasma Thawed 5 Day Cp2d Unit 325 / 325 [id number] Plasma Thawed 5 Day Cp2d Unit 332 / 332 [id number] Plasma Thawed 5 Day Cp2d Unit 300 / 300 [id number] Plt Pheresis A Leukoreduced 230 / 230 Unit [id number] Plt Pheresis B Leukoreduced 230 / 230 Unit [id number] Pre-Pooled Cryo Thawed 10units 210 / 210 Unit [id number] Rbc As-3 Leukoreduced Unit 400 / 400 [id number] Rbc As-3 Leukoreduced Unit 400 / 400 [id number] Rbc As-3 Leukoreduced Unit 400 / 400 [id number] Rbc As-3 Leukoreduced Unit 400 / 400 [id number] Rbc As-3 Leukoreduced Unit 400 / 400 [id number] Rbc As-3 Leukoreduced Unit 400 / 400 [id number] Rbc As-3 Leukoreduced Unit 0 / 0 [id number] Output: Urine Amount (Catheter) 4150 / 4150 3325 / 3325 Indwelling Urethral Catheter 4150 / 4150 3325 / 3325 Other: Other Intake Source Rbc As-3 Leukoreduced Unit Saline Solution [id number] Rbc As-3 Leukoreduced Unit Saline Solution [id number] Rbc As-3 Leukoreduced Unit Saline Solution [id number] Date of Last Bowel Movement 03/12/18 # Bowel Movements 0 # Incontinent Bowel Movements 2 - Urinary Catheter Management Female External Cath placed during this visit: no Indwelling Urethral Catheter Cath placed during this visit: no <Aj Spencer - Last Filed: 03/12/18 12:04> Assessment and Plan - Assessment (1) Acute kidney injury Code(s): N17.9 - Acute kidney failure, unspecified Status: Acute Plan: Normal renal function at baseline. Renal function slightly better today. LOVE most likely due to cardiogenic shock. Renal function slightly improved. She is making urine. No need for renal replacement therapy. Continue pressor support, avoid hypotension. Obtain daily labs. Avoid nephrotoxic agents. Prognosis is guarded. 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 Has history of lymphoma. Cardiology following. Supportive measures as mentioned above. (3) Ischemic leg Code(s): I99.8 - Other disorder of circulatory system Status: Acute Plan: Vascular surgery following, appreciate recommendations. <Minnie Yeung - Last Filed: 03/12/18 09:47> - Assessment (1) Acute kidney injury Code(s): N17.9 - Acute kidney failure, unspecified Status: Acute (2) Cardiogenic shock Code(s): R57.0 - Cardiogenic shock Status: Acute (3) Ischemic leg Code(s): I99.8 - Other disorder of circulatory system Status: Acute - Attending Attestation patient was seen and examined. Agree with above assessment and plan. Renal function is improving. No need for dialysis. Replace potassium. <Aj Spencer - Last Filed: 03/12/18 12:04>
--- NOTE | 2018-03-12 09:59 | P.PNVS ---
Subjective Subjective/Hospital Course: Pt remains critically ill with significant pressor req and mechanical inotropic support via R groin Impella R leg worse, mottled and less/no motor function Afib last night, converted with amio Rectal bleeding continues tho Hct stable after 3U PRBC yest, pending today RUQ U/S suggestive of cirrhosis today Objective Vital Signs / I&O: Vital Signs 03/11/18 09:59 03/11/18 10:00 03/11/18 10:41 Temperature 100 F H Pulse Rate 129 H 129 H Respiratory Rate 12 12 Blood Pressure 120/76 Pulse Oximetry 98 03/11/18 11:00 03/11/18 11:04 03/11/18 12:00 Temperature 100 F H 100.7 F H Pulse Rate 129 H 129 H 119 H Respiratory Rate 12 12 Blood Pressure 90/65 L 110/77 Pulse Oximetry 93 L 92 L 03/11/18 12:09 03/11/18 12:26 03/11/18 13:00 Temperature 100.5 F H 100.1 F H Pulse Rate 119 H 113 H Respiratory Rate 12 12 21 Blood Pressure 93/72 L 95/71 L Pulse Oximetry 94 L 97 03/11/18 14:00 03/11/18 15:00 03/11/18 15:55 Temperature 100.8 F H Pulse Rate 114 H 120 H 119 H Respiratory Rate 13 16 Blood Pressure 89/66 L Pulse Oximetry 92 L 03/11/18 16:00 03/11/18 16:08 03/11/18 16:51 Temperature 100.7 F H Pulse Rate 109 H 107 H Respiratory Rate 16 11 L Blood Pressure 91/65 L Pulse Oximetry 88 L 93 L 03/11/18 17:07 03/11/18 18:00 03/11/18 19:00 Temperature 100.1 F H Pulse Rate 106 H 106 H 98 H Respiratory Rate 13 Blood Pressure 96/73 L Pulse Oximetry 93 L 03/11/18 19:20 03/11/18 20:15 03/11/18 20:32 Temperature 100.5 F H Pulse Rate 96 H 97 H Respiratory Rate 10 L 10 L 14 Blood Pressure 112/80 Pulse Oximetry 95 97 03/11/18 20:43 03/11/18 20:46 03/11/18 21:00 Temperature 100.3 F H 100.3 F H Pulse Rate 97 H 97 H 99 H Respiratory Rate 10 L 10 L Blood Pressure 109/78 108/77 108/78 Pulse Oximetry 95 96 03/11/18 21:14 03/11/18 22:09 03/11/18 22:45 Temperature 100.2 F H 100.1 F H Pulse Rate 99 H 103 H Respiratory Rate 10 L 14 11 L Blood Pressure 108/78 106/79 Pulse Oximetry 96 96 97 03/11/18 23:00 03/11/18 23:15 03/11/18 23:23 Temperature 100.1 F H 100.0 F H Pulse Rate 111 H 107 H 107 H Respiratory Rate 11 L 12 Blood Pressure 111/87 108/83 Pulse Oximetry 96 93 L 03/12/18 00:00 03/12/18 00:09 03/12/18 00:51 Temperature 99.9 F H Pulse Rate 107 H 107 H Respiratory Rate 13 14 Blood Pressure 103/79 105/81 Pulse Oximetry 96 97 03/12/18 03:00 03/12/18 03:50 03/12/18 04:18 Temperature 100.7 F H Pulse Rate 104 H 103 H Respiratory Rate 17 18 Blood Pressure 104/82 97/71 L Pulse Oximetry 98 97 03/12/18 05:45 03/12/18 08:20 Temperature 101 F H Pulse Rate Respiratory Rate 16 Blood Pressure Pulse Oximetry 99 Intake & Output 03/11/18 03/12/18 03/12/18 18:59 06:59 18:59 Intake Total 2932 / 2932 4618.0 / 4618.0 650 / 650 Output Total 4150 / 4150 3325 / 3325 Balance 2932 / 2932 468.0 / 468.0 -2675 / -2675 Weight 69 kg Intake: IV 1300 / 1300 2993.0 / 2993.0 250 / 250 Cordarone Inj 450 MG In D5W Inj 259 / 259 241 ML @ 1 MG/MIN 33.33 mls/hr IV.CONT TITRATE PRN Rx#: [id number] Versed Inj 50 mg In 50 ml @ 2 50 / 50 132.2 / 132.2 MG/HR 2 mls/hr IV.CONT TITRATE PRN Rx#:[id number] Primacor Inj 20 MG In NS Inj 80 100 / 100 153 / 153 ML @ 0.375 MCG/KG/MIN 6.86 mls /hr IV.CONT .[id number] [facility] Rx#: [id number] Pitressin Inj 40 UNIT In D5W 100 / 100 Inj 98 ML @ 0.01 UNITS/MIN 1.5 mls/hr IV.CONT TITRATE PRN Rx#: [id number] Ofirmev Inj 1,000 mg In 100 ml 100 / 100 @ As Directed 400 mls/hr IV.SIG ONCE ONE Rx#:[id number] Flexbumin 25% Inj 100 ML @ 60 100 / 100 mls/hr IV.SIG ONCE ONE Rx#: [id number] Cordarone Inj 150 MG In D5W Inj 100 / 100 97 ML @ 600 mls/hr IV.SIG ONCE ONE Rx#:[id number] Heparin Inj 25,000 UNIT In D5W 450 / 450 Inj 500 ML @ As Directed IV.SIG UNSCH PRN Rx#:[id number] Magnesium Sulfate Inj 2 GM In 100 / 100 100 / 100 NS Inj 96 ML @ 50 mls/hr IV.SIG UNSCH PRN Rx#:[id number] MVI-12 Inj 10 ML Thiamine Inj 550 / 550 100 MG Folvite Inj 1 MG In NS Inj 500 ML @ 125 mls/hr IV.SIG Q24H [facility] Rx#:[id number] Levophed-Dextrose 4 mg/250 ml 500 / 500 512 / 512 250 / 250 Drip 4 mg In 250 ml @ 2 MCG/MIN 7.5 mls/hr IV.SIG TITRATE PRN Rx#:[id number] Zosyn 3.375 GM Premix 50 ML @ 100 / 100 100 / 100 100 mls/hr IV.SIG Q6H [facility] Rx#: [id number] KCl 40 mEq Premix Inj 40 meq In 100 / 100 100 ml @ 25 mls/hr IV.SIG UNSCH PRN Rx#:[id number] fentaNYL 10 mcg/mL Premix Drip 250 / 250 2,500 mcg In 250 ml @ 50 MCG/HR 5 mls/hr IV.SIG TITRATE PRN Rx #:[id number] Flolan (30,000 ng/mL) Neb 62.5 100 / 100 216.8 / 216.8 ML In NS Inj 37.5 ML @ 8 mls/hr NEB Q8H [facility] Rx#:[id number] Tube Irrigant 400 / 400 Other 100 / 100 Rbc As-3 Leukoreduced Unit 100 / 100 [id number] Intake (Blood Product) Amt 1532 / 1532 1625 / 1625 Plasma Thawed 5 Day Cp2d Unit 330 / 330 [id number] Plasma Thawed 5 Day Cp2d Unit 325 / 325 [id number] Plasma Thawed 5 Day Cp2d Unit 332 / 332 [id number] Plasma Thawed 5 Day Cp2d Unit 300 / 300 [id number] Plt Pheresis A Leukoreduced 230 / 230 Unit [id number] Plt Pheresis B Leukoreduced 230 / 230 Unit [id number] Pre-Pooled Cryo Thawed 10units 210 / 210 Unit [id number] Rbc As-3 Leukoreduced Unit 400 / 400 [id number] Rbc As-3 Leukoreduced Unit 400 / 400 [id number] Rbc As-3 Leukoreduced Unit 400 / 400 [id number] Rbc As-3 Leukoreduced Unit 0 / 0 [id number] Output: Urine Amount (Catheter) 4150 / 4150 3325 / 3325 Indwelling Urethral Catheter 4150 / 4150 3325 / 3325 Other: Date of Last Bowel Movement 03/12/18 # Bowel Movements 0 # Incontinent Bowel Movements 2 Physical Exam: R groin with some bleeding but not frankly R leg cool, mottled, cyanotic no pedal signals Laboratory Results - last 24 hr 03/10/18 03/11/18 03/11/18 14:20 06:24 10:36 WBC RBC Hgb Hct MCV MCH MCHC RDW Plt Count MPV Prelim Diff (Auto) Neut % (Auto) Lymph % (Auto) Fisher % (Auto) Eos % (Auto) Baso % (Auto) Neut # (Auto) Lymph # (Auto) Fisher # (Auto) Eos # (Auto) Baso # (Auto) WBC Differential Diff Scan Differential Comment Platelet Estimate Platelet Morphology Spherocytes PT INR APTT Fibrinogen Puncture Site Patient Temperature O2 Saturation ABG pH ABG pCO2 ABG pO2 ABG HCO3 ABG O2 Content ABG Base Excess ABG Methemoglobin Hemoglobin Carboxyhemoglobin O2 Delivery Device Vent Setting Inspired O2 Critical Value Sodium Potassium Chloride Carbon Dioxide Anion Gap BUN Creatinine Estimated GFR POC Glucose Random Glucose Lactic Acid Calcium Phosphorus Magnesium Total Bilirubin AST ALT Alkaline Phosphatase Total Protein Albumin MTS Gel Crossmatch See Detail Blood Bank Comment Bld Prod Order Comment 03/11/18 03/11/18 03/11/18 13:03 13:30 13:30 WBC 8.9 RBC 3.24 L Hgb 10.1 L D Hct 28.9 L MCV 89.0 D MCH 31.1 MCHC 34.9 RDW 20.4 H D Plt Count 77 L MPV 9.2 Prelim Diff (Auto) Neut % (Auto) Lymph % (Auto) Fisher % (Auto) Eos % (Auto) Baso % (Auto) Neut # (Auto) Lymph # (Auto) Fisher # (Auto) Eos # (Auto) Baso # (Auto) WBC Differential Diff Scan Differential Comment Platelet Estimate Platelet Morphology Spherocytes PT INR APTT Fibrinogen Puncture Site Patient Temperature O2 Saturation ABG pH ABG pCO2 ABG pO2 ABG HCO3 ABG O2 Content ABG Base Excess ABG Methemoglobin Hemoglobin Carboxyhemoglobin O2 Delivery Device Vent Setting Inspired O2 Critical Value Sodium 139 Potassium 4.1 Chloride 92 L Carbon Dioxide 32.5 H Anion Gap 15 BUN 29 H Creatinine 1.80 H Estimated GFR 29 L POC Glucose 346 H Random Glucose 290 H Lactic Acid Calcium 9.5 D Phosphorus Magnesium 1.7 Total Bilirubin 4.7 H AST 269 H ALT 77 H Alkaline Phosphatase 66 Total Protein 5.3 L Albumin 3.2 L MTS Gel Crossmatch Blood Bank Comment Bld Prod Order Comment 03/11/18 03/11/18 03/11/18 13:30 13:30 16:26 WBC RBC Hgb Hct MCV MCH MCHC RDW Plt Count MPV Prelim Diff (Auto) Neut % (Auto) Lymph % (Auto) Fisher % (Auto) Eos % (Auto) Baso % (Auto) Neut # (Auto) Lymph # (Auto) Fisher # (Auto) Eos # (Auto) Baso # (Auto) WBC Differential Diff Scan Differential Comment Platelet Estimate Platelet Morphology Spherocytes PT INR APTT 78.8 H D Fibrinogen Puncture Site Patient Temperature O2 Saturation ABG pH ABG pCO2 ABG pO2 ABG HCO3 ABG O2 Content ABG Base Excess ABG Methemoglobin Hemoglobin Carboxyhemoglobin O2 Delivery Device Vent Setting Inspired O2 Critical Value Sodium Potassium Chloride Carbon Dioxide Anion Gap BUN Creatinine Estimated GFR POC Glucose Random Glucose Lactic Acid 4.9 H* Calcium Phosphorus Magnesium Total Bilirubin AST ALT Alkaline Phosphatase Total Protein Albumin MTS Gel Crossmatch See Detail Blood Bank Comment Bld Prod Order Comment 0903/11/18 03/11/18 16:55 17:00 17:00 WBC ND RBC ND Hgb ND Hct ND MCV ND MCH ND MCHC ND RDW ND Plt Count ND MPV ND Prelim Diff (Auto) Neut % (Auto) Lymph % (Auto) Fisher % (Auto) Eos % (Auto) Baso % (Auto) Neut # (Auto) Lymph # (Auto) Fisher # (Auto) Eos # (Auto) Baso # (Auto) WBC Differential Diff Scan Differential Comment Platelet Estimate Platelet Morphology Spherocytes PT INR APTT Fibrinogen Puncture Site Patient Temperature O2 Saturation ABG pH ABG pCO2 ABG pO2 ABG HCO3 ABG O2 Content ABG Base Excess ABG Methemoglobin Hemoglobin Carboxyhemoglobin O2 Delivery Device Vent Setting Inspired O2 Critical Value Sodium Potassium Chloride Carbon Dioxide Anion Gap BUN Creatinine Estimated GFR POC Glucose 199 H Random Glucose Lactic Acid 4.2 H* Calcium Phosphorus Magnesium Total Bilirubin AST ALT Alkaline Phosphatase Total Protein Albumin MTS Gel Crossmatch Blood Bank Comment Bld Prod Order Comment 03/11/18 03/11/18 03/11/18 17:00 17:00 17:00 WBC RBC Hgb Hct MCV MCH MCHC RDW Plt Count MPV Prelim Diff (Auto) Neut % (Auto) Lymph % (Auto) Fisher % (Auto) Eos % (Auto) Baso % (Auto) Neut # (Auto) Lymph # (Auto) Fisher # (Auto) Eos # (Auto) Baso # (Auto) WBC Differential Diff Scan Differential Comment Platelet Estimate Platelet Morphology Spherocytes PT ND INR ND APTT ND Fibrinogen ND Puncture Site Patient Temperature O2 Saturation ABG pH ABG pCO2 ABG pO2 ABG HCO3 ABG O2 Content ABG Base Excess ABG Methemoglobin Hemoglobin Carboxyhemoglobin O2 Delivery Device Vent Setting Inspired O2 Critical Value Sodium ND Potassium ND Chloride ND Carbon Dioxide ND Anion Gap ND BUN ND Creatinine ND Estimated GFR ND POC Glucose Random Glucose ND Lactic Acid Calcium ND Phosphorus Magnesium ND Total Bilirubin ND AST ND ALT ND Alkaline Phosphatase ND Total Protein ND Albumin ND MTS Gel Crossmatch Blood Bank Comment Bld Prod Order Comment 03/11/18 03/11/18 03/11/18 18:11 18:33 18:46 WBC RBC Hgb Hct MCV MCH MCHC RDW Plt Count MPV Prelim Diff (Auto) Neut % (Auto) Lymph % (Auto) Fisher % (Auto) Eos % (Auto) Baso % (Auto) Neut # (Auto) Lymph # (Auto) Fisher # (Auto) Eos # (Auto) Baso # (Auto) WBC Differential Diff Scan Differential Comment Platelet Estimate Platelet Morphology Spherocytes PT INR APTT Fibrinogen Puncture Site Patient Temperature O2 Saturation ABG pH ABG pCO2 ABG pO2 ABG HCO3 ABG O2 Content ABG Base Excess ABG Methemoglobin Hemoglobin Carboxyhemoglobin O2 Delivery Device Vent Setting Inspired O2 Critical Value Sodium Potassium Chloride Carbon Dioxide Anion Gap BUN Creatinine Estimated GFR POC Glucose Random Glucose Lactic Acid Calcium Phosphorus Magnesium Total Bilirubin AST ALT Alkaline Phosphatase Total Protein Albumin MTS Gel Crossmatch Blood Bank Comment Bld Prod Order Comment 03/11/18 03/11/18 03/11/18 18:47 19:15 19:15 WBC 8.1 RBC 3.16 L Hgb 10.5 L Hct 28.5 L MCV 90.3 MCH 33.2 MCHC 36.7 H RDW 17.6 H D Plt Count 70 L MPV 8.7 Prelim Diff (Auto) Slide review pending Neut % (Auto) 88.9 H Lymph % (Auto) 4.8 L Fisher % (Auto) 6.1 Eos % (Auto) 0.0 Baso % (Auto) 0.2 Neut # (Auto) 7.2 Lymph # (Auto) 0.4 L Fisher # (Auto) 0.5 Eos # (Auto) 0.0 Baso # (Auto) 0.0 WBC Differential . Diff Scan Auto diff confirmed Differential Comment . Platelet Estimate Low L Platelet Morphology Normal Spherocytes 2+ H PT INR APTT Fibrinogen Puncture Site Patient Temperature O2 Saturation ABG pH ABG pCO2 ABG pO2 ABG HCO3 ABG O2 Content ABG Base Excess ABG Methemoglobin Hemoglobin Carboxyhemoglobin O2 Delivery Device Vent Setting Inspired O2 Critical Value Sodium 137 Potassium 3.9 Chloride 90 L Carbon Dioxide 34.7 H Anion Gap 12 BUN 30 H Creatinine 1.81 H Estimated GFR 29 L POC Glucose Random Glucose 247 H Lactic Acid Calcium 8.4 L D Phosphorus Magnesium 1.6 Total Bilirubin 5.3 H AST 329 H ALT 90 H Alkaline Phosphatase 60 Total Protein 5.4 L Albumin 3.4 MTS Gel Crossmatch Blood Bank Comment Bld Prod Order Comment 03/11/18 03/11/18 03/11/18 19:15 21:43 21:44 WBC RBC Hgb Hct MCV MCH MCHC RDW Plt Count MPV Prelim Diff (Auto) Neut % (Auto) Lymph % (Auto) Fisher % (Auto) Eos % (Auto) Baso % (Auto) Neut # (Auto) Lymph # (Auto) Fisher # (Auto) Eos # (Auto) Baso # (Auto) WBC Differential Diff Scan Differential Comment Platelet Estimate Platelet Morphology Spherocytes PT 19.3 H INR 1.9 APTT 117.1 H* D Fibrinogen 239 Puncture Site Patient Temperature O2 Saturation ABG pH ABG pCO2 ABG pO2 ABG HCO3 ABG O2 Content ABG Base Excess ABG Methemoglobin Hemoglobin Carboxyhemoglobin O2 Delivery Device Vent Setting Inspired O2 Critical Value Sodium Potassium Chloride Carbon Dioxide Anion Gap BUN Creatinine Estimated GFR POC Glucose 330 H 344 H Random Glucose Lactic Acid Calcium Phosphorus Magnesium Total Bilirubin AST ALT Alkaline Phosphatase Total Protein Albumin Anaergia Gel [email or web address] Blood Bank Comment Bld Prod Order Comment 03/11/18 03/12/18 03/12/18 Unknown 04:03 04:03 WBC RBC Hgb Hct MCV MCH MCHC RDW Plt Count MPV Prelim Diff (Auto) Neut % (Auto) Lymph % (Auto) Fisher % (Auto) Eos % (Auto) Baso % (Auto) Neut # (Auto) Lymph # (Auto) Fisher # (Auto) Eos # (Auto) Baso # (Auto) WBC Differential Diff Scan Differential Comment Platelet Estimate Platelet Morphology Spherocytes PT 15.4 H INR 1.5 APTT 58.2 H D Fibrinogen Puncture Site Patient Temperature O2 Saturation ABG pH ABG pCO2 ABG pO2 ABG HCO3 ABG O2 Content ABG Base Excess ABG Methemoglobin Hemoglobin Carboxyhemoglobin O2 Delivery Device Vent Setting Inspired O2 Critical Value Sodium 133 L Potassium 3.2 L Chloride 84 L Carbon Dioxide 35.7 H Anion Gap 13 BUN 31 H Creatinine 1.77 H Estimated GFR 29 L POC Glucose Random Glucose 256 H Lactic Acid Calcium 8.2 L Phosphorus 3.7 Magnesium 2.2 D Total Bilirubin 8.7 H AST 373 H ALT 102 H Alkaline Phosphatase 77 Total Protein 6.5 D Albumin 3.6 Anaergia Gel [email or web address] Blood Bank Comment Bld Prod Order Comment 03/12/18 03/12/18 03/12/18 04:03 06:10 08:52 WBC RBC Hgb Hct MCV MCH MCHC RDW Plt Count MPV Prelim Diff (Auto) Neut % (Auto) Lymph % (Auto) Fisher % (Auto) Eos % (Auto) Baso % (Auto) Neut # (Auto) Lymph # (Auto) Fisher # (Auto) Eos # (Auto) Baso # (Auto) WBC Differential Diff Scan Differential Comment Platelet Estimate Platelet Morphology Spherocytes PT INR APTT Fibrinogen Puncture Site Art line Patient Temperature 98.6 O2 Saturation 96 ABG pH 7.52 H* ABG pCO2 44 H ABG pO2 160 H ABG HCO3 36 H ABG O2 Content 11.2 L ABG Base Excess 11.9 H ABG Methemoglobin 1.6 Hemoglobin 8.0 L Carboxyhemoglobin 1.7 O2 Delivery Device Ventilator Vent Setting Prvc/ac Inspired O2 60 Critical Value Yes Sodium Potassium Chloride Carbon Dioxide Anion Gap BUN Creatinine Estimated GFR POC Glucose Random Glucose Lactic Acid 3.5 H Calcium Phosphorus Magnesium Total Bilirubin AST ALT Alkaline Phosphatase Total Protein Albumin MTS Gel Crossmatch See Detail Blood Bank Comment Bld Prod Order Comment 03/12/18 03/12/18 08:56 09:15 WBC RBC Hgb Hct MCV MCH MCHC RDW Plt Count MPV Prelim Diff (Auto) Neut % (Auto) Lymph % (Auto) Fisher % (Auto) Eos % (Auto) Baso % (Auto) Neut # (Auto) Lymph # (Auto) Fisher # (Auto) Eos # (Auto) Baso # (Auto) WBC Differential Diff Scan Differential Comment Platelet Estimate Platelet Morphology Spherocytes PT INR APTT Fibrinogen Puncture Site Patient Temperature O2 Saturation ABG pH ABG pCO2 ABG pO2 ABG HCO3 ABG O2 Content ABG Base Excess ABG Methemoglobin Hemoglobin Carboxyhemoglobin O2 Delivery Device Vent Setting Inspired O2 Critical Value Sodium Potassium Chloride Carbon Dioxide Anion Gap BUN Creatinine Estimated GFR POC Glucose 298 H Random Glucose Lactic Acid Calcium Phosphorus Magnesium Total Bilirubin AST ALT Alkaline Phosphatase Total Protein Albumin MTS Gel Crossmatch Blood Bank Comment Bld Prod Order Comment Microbiology 03/10/18 07:28 Aerobic Blood Culture - Preliminary Blood - Peripheral No growth in 1 day Anaerobic Blood Culture - Preliminary No growth in 1 day 03/10/18 07:22 Aerobic Blood Culture - Preliminary Blood - Peripheral No growth in 1 day Anaerobic Blood Culture - Preliminary No growth in 1 day 03/10/18 09:00 Urine Culture - Preliminary Catheterized Urine No growth in 24 hours Impressions Chest X-Ray 03/10/18 11:32 CONCLUSION: Central line as above. Chest X-Ray 03/11/18 05:00 CONCLUSION: Stable chest x-ray with bibasilar opacities characteristic of pleural effusions with associated volume loss and/or airspace consolidation. Gallbladder Ultrasound 03/12/18 00:00 CONCLUSION: 1. Cirrhotic liver with small amount of abdominal ascites. 2. Gallbladder wall thickening. Assessment and Plan - Assessment (1) Cardiogenic shock Code(s): R57.0 - Cardiogenic shock Status: Acute - Plan 58 yo female with cardiogenic shock and R groin Impella mechanical support device. R LE ischemic and worse. 1. Continue to wean impella, drips. Ideally would need volume resuscitation ( 9F sheath appears to be occlusive) but tough given profound cardiogenic shock. Obviously, no revascularization assessment of R LE can be done while impella in place, which at this point seems to be life-saving. 2. Will follow. Philippe Arellano MD FACS RPVI static balancer [facility] [phone]
[2018-03-12 10:09] LABS: Mean Corpuscular Hemoglobin 36.2 pg (27.0-34.0); Mean Corpuscular Volume 100.2 fL (80.0-100.0); Mean Platelet Volume 8.9 fL (7.0-11.0); Platelet Count 94 th/mm3 (150-450); Red Blood Count 1.38 mil/mm3 (4.00-5.30); Red Cell Distribution Width 18.6 % (11.6-17.2)
[2018-03-12 10:10] LABS: Mean Corpuscular HGB Conc 36.2 % (32.0-36.0)
[2018-03-12 10:15] LABS: Hematocrit 13.8 % (35.0-46.0)
--- NOTE | 2018-03-12 10:58 | P.PNCC ---
Subjective Subjective Remarks/Hospital Course: 58-year-old female with known history of hyperlipidemia, diabetes, gastroesophageal reflux, history of lymphoma who presented to the hospital initially because of abdominal pain, chronic diarrhea, nausea vomiting for 4 months. Patient is being followed by Dr. Thomas in the outpatient setting for the chronic diarrhea. She underwent endoscopy on October this year there was a stricture found and was dilated at that time. Colonoscopy was scheduled for next Sunday however due to the patient's increased nausea vomiting diarrhea she came to the emergency department for evaluation. Patient had significant workup done in the hospital to include full stool evaluation for any infectious process which was unremarkable. CT scan did indicate signs of colitis in the proximal half of the transverse colon with submucosal edema. Patient was admitted the hospital and GI consultation was requested and performed. Patient did undergo colonoscopy which did indicate colitis, biopsies were taken. Patient did have internal hemorrhoids +1 external hemorrhoid that needed to be clipped. The patient's stay her hemoglobin was monitored and her hemoglobin did drop down to 7.8 and given that she had heme positive stools she is transfused 1 unit of packed red blood cells which her hemoglobin went back up to 10.1. Patient's hemoglobin has maintained stability since then. Patient was in the ICU secondary to continued hypotension secondary to hypovolemia from her nausea, vomiting, diarrhea. Patient was on electrolyte replacement protocol due to electrolyte loss from diarrhea. Patient was started on Questran and Lomotil with significant improvement. Patient was given multiple liters of fluid boluses as well as albumin infusions with improvement of her blood pressure. Patient does have history of chronic anemia which appears to be macrocytic. Hematology was consulted for further recommendations in reference to the patient's history of lymphoma, chronic anemia, pancytopenia. Patient was actually doing well and was transferred to the medical floor. However last evening the patient had acute onset of shortness of breath. There is no indication chest pain, abdominal pain, nausea, vomiting. Patient had significant workup performed which did indicate a acute troponin elevation, significant elevation of BNP. Chest x-ray did showed new findings of pulmonary edema, pulmonary angiogram was performed which did show significant pulmonary edema with bilateral pleural effusions. Patient was transferred back to the ICU due to acute hypoxic respiratory failure. Patient was requiring 6 L nasal cannula maintain O2 saturations greater than 92%. Upon review of the EKGs it does appears patient had acute changes with Q-wave presentation in the inferior leads. Due to the patient's respiratory failure, significant hypotension, acute myocardial infarction, acute cardiomyopathy, acute congestive heart failure critical care consultation was requested for management in the ICU. SUBJECTIVE: 03/09: Currently on norepinephrine drip at 8 mcg/min. Complaining of being slightly short of breath. Current x-ray revealed tiny pleural effusions. Abdominal pain control. 03/10: florid cardiogenic shock. lactate 13. altered. acutely agitated. going into respiratory failure. emergently intubated (see procedure note for details) . scvo2 from central line of 12%. transferred to CVICU. placed arterial, central lines and PA catheter. CI 1.6. 4mg bumex iv x 1 with bumex drip at 2mg/ hr. started milrinone and epinephrine drips. no adequate uop. Dr. Hewitt came in and emergently LHC: clean coronaries. placed impella. uop began to pickle maker after impella. right leg without dopplerable signals after impella, but cap refill present (sluggish, but present). patient still follows commands. lactate peaked at 19, now downtrending. fio2 90% on peep 10. pulmonary edema. 03/11: Condition remains critical with guarded prognosis. Remains in profound shock. Now cardiogenic hypovolemic, hemoglobin 5.4-3 unit PRBC stat ordered, with calcium replacement. Currently remains on the fentanyl and Versed for sedation. Also on epinephrine 3 mcg/min, milrinone 0.375 mcg/kg/min, Levophed 20 mcg/min and vasopressin 0.04 international units. Heparin held due to supratherapeutic INR. Lactate continues to trend down last 4.4. Mixed venous gases pending at this time. Impella R groin, P level 6, Flow 2.9 L/min, sig 88/ 59. UO over last 12 hours is 4L. 03/12: Patient still remains extremely critical and in profound shock currently cardiogenic and hemorrhagic shock. Hemoglobin today 5 severely coagulopathic getting blood and blood products. Liver ultrasound confirms liver cirrhosis. Currently on Levophed, milrinone, vasopressin, and amiodarone infusions. Impala reading 106/75, 3.0 L/min. PAC CI 2.6, SVR decreased 979. CVP 10. Bedside echo confirms impaired left pigtail positioning towards apex, LVEF appears 20% also evidence of RV dysfunction. Bilirubin is 8.3 today INR 1.5 PTT 38.2. Unable to anticoagulate due to life-threatening hemorrhage from right groin impeller site and lower GI bleed. Patient's right lower extremity is mottled pulseless nonfunctional now. Prognosis is extremely guarded. I discussed with options. He had given me history that patient drinks about 8 shots of vodka daily and smokes 2 packs of cigarettes per day. On further discussion he stated to me that he cannot by any means see her by going on an LVAD or getting a heart transplant given her habits. He refuses a transfer to a heart transplant/LVAD center after our discussion Objective Vital Signs / I&O: Vital Signs 03/11/18 10:41 03/11/18 11:00 03/11/18 11:04 Temperature 100 F H 100 F H 100.7 F H Pulse Rate 129 H 129 H 129 H Respiratory Rate 12 12 12 Blood Pressure 120/76 90/65 L 110/77 Pulse Oximetry 93 L 92 L 03/11/18 12:00 03/11/18 12:09 03/11/18 12:26 Temperature 100.5 F H 100.1 F H Pulse Rate 119 H 119 H 113 H Respiratory Rate 12 12 Blood Pressure 93/72 L 95/71 L Pulse Oximetry 94 L 03/11/18 13:00 03/11/18 14:00 03/11/18 15:00 Temperature 100.8 F H Pulse Rate 114 H 120 H Respiratory Rate 21 13 Blood Pressure 89/66 L Pulse Oximetry 97 92 L 03/11/18 15:55 03/11/18 16:00 03/11/18 16:08 Temperature Pulse Rate 119 H 109 H Respiratory Rate 16 16 Blood Pressure Pulse Oximetry 88 L 03/11/18 16:51 03/11/18 17:07 03/11/18 18:00 Temperature 100.7 F H 100.1 F H Pulse Rate 107 H 106 H 106 H Respiratory Rate 11 L 13 Blood Pressure 91/65 L 96/73 L Pulse Oximetry 93 L 93 L 03/11/18 19:00 03/11/18 19:20 03/11/18 20:15 Temperature 100.5 F H Pulse Rate 98 H 96 H Respiratory Rate 10 L 10 L Blood Pressure 112/80 Pulse Oximetry 95 97 03/11/18 20:32 03/11/18 20:43 03/11/18 20:46 Temperature 100.3 F H 100.3 F H Pulse Rate 97 H 97 H 97 H Respiratory Rate 14 10 L 10 L Blood Pressure 109/78 108/77 Pulse Oximetry 95 96 03/11/18 21:00 03/11/18 21:14 03/11/18 22:09 Temperature 100.2 F H 100.1 F H Pulse Rate 99 H 99 H 103 H Respiratory Rate 10 L 14 Blood Pressure 108/78 108/78 106/79 Pulse Oximetry 96 96 03/11/18 22:45 03/11/18 23:00 03/11/18 23:15 Temperature 100.1 F H Pulse Rate 111 H 107 H Respiratory Rate 11 L 11 L Blood Pressure 111/87 Pulse Oximetry 97 96 03/11/18 23:23 03/12/18 00:00 03/12/18 00:09 Temperature 100.0 F H 99.9 F H Pulse Rate 107 H 107 H 107 H Respiratory Rate 12 13 Blood Pressure 108/83 103/79 105/81 Pulse Oximetry 93 L 96 03/12/18 00:51 03/12/18 03:00 03/12/18 03:50 Temperature 100.7 F H Pulse Rate 104 H Respiratory Rate 14 17 18 Blood Pressure 104/82 Pulse Oximetry 97 98 97 03/12/18 04:18 03/12/18 05:45 03/12/18 08:20 Temperature 101 F H Pulse Rate 103 H Respiratory Rate 16 Blood Pressure 97/71 L Pulse Oximetry 99 03/12/18 09:59 Temperature 100.2 F H Pulse Rate 116 H Respiratory Rate Blood Pressure 82/62 L Pulse Oximetry 99 Intake & Output 03/11/18 03/12/18 03/12/18 18:59 06:59 18:59 Intake Total 2932 / 2932 4618.0 / 4618.0 650 / 650 Output Total 4150 / 4150 3325 / 3325 Balance 2932 / 2932 468.0 / 468.0 -2675 / -2675 Weight 69 kg Intake: IV 1300 / 1300 2993.0 / 2993.0 250 / 250 Cordarone Inj 450 MG In D5W Inj 259 / 259 241 ML @ 1 MG/MIN 33.33 mls/hr IV.CONT TITRATE PRN Rx#: [id number] Versed Inj 50 mg In 50 ml @ 2 50 / 50 132.2 / 132.2 MG/HR 2 mls/hr IV.CONT TITRATE PRN Rx#:[id number] Primacor Inj 20 MG In NS Inj 80 100 / 100 153 / 153 ML @ 0.375 MCG/KG/MIN 6.86 mls /hr IV.CONT .[id number] [facility]ENDA Rx#: [id number] Pitressin Inj 40 UNIT In D5W 100 / 100 Inj 98 ML @ 0.01 UNITS/MIN 1.5 mls/hr IV.CONT TITRATE PRN Rx#: [id number] Ofirmev Inj 1,000 mg In 100 ml 100 / 100 @ As Directed 400 mls/hr IV.SIG ONCE ONE Rx#:[id number] Flexbumin 25% Inj 100 ML @ 60 100 / 100 mls/hr IV.SIG ONCE ONE Rx#: [id number] Cordarone Inj 150 MG In D5W Inj 100 / 100 97 ML @ 600 mls/hr IV.SIG ONCE ONE Rx#:[id number] Heparin Inj 25,000 UNIT In D5W 450 / 450 Inj 500 ML @ As Directed IV.SIG UNSCH PRN Rx#:[id number] Magnesium Sulfate Inj 2 GM In 100 / 100 100 / 100 NS Inj 96 ML @ 50 mls/hr IV.SIG UNSCH PRN Rx#:[id number] MVI-12 Inj 10 ML Thiamine Inj 550 / 550 100 MG Folvite Inj 1 MG In NS Inj 500 ML @ 125 mls/hr IV.SIG Q24H [facility] Rx#:[id number] Levophed-Dextrose 4 mg/250 ml 500 / 500 512 / 512 250 / 250 Drip 4 mg In 250 ml @ 2 MCG/MIN 7.5 mls/hr IV.SIG TITRATE PRN Rx#:[id number] Zosyn 3.375 GM Premix 50 ML @ 100 / 100 100 / 100 100 mls/hr IV.SIG Q6H [facility] Rx#: [id number] KCl 40 mEq Premix Inj 40 meq In 100 / 100 100 ml @ 25 mls/hr IV.SIG UNSCH PRN Rx#:[id number] fentaNYL 10 mcg/mL Premix Drip 250 / 250 2,500 mcg In 250 ml @ 50 MCG/HR 5 mls/hr IV.SIG TITRATE PRN Rx #:[id number] Flolan (30,000 ng/mL) Neb 62.5 100 / 100 216.8 / 216.8 ML In NS Inj 37.5 ML @ 8 mls/hr NEB Q8H [facility] Rx#:[id number] Tube Irrigant 400 / 400 Other 100 / 100 Rbc As-3 Leukoreduced Unit 100 / 100 [id number] Intake (Blood Product) Amt 1532 / 1532 1625 / 1625 Plasma Thawed 5 Day Cp2d Unit 330 / 330 [id number] Plasma Thawed 5 Day Cp2d Unit 325 / 325 [id number] Plasma Thawed 5 Day Cp2d Unit 332 / 332 [id number] Plasma Thawed 5 Day Cp2d Unit 300 / 300 [id number] Plt Pheresis A Leukoreduced 230 / 230 Unit [id number] Plt Pheresis B Leukoreduced 230 / 230 Unit [id number] Pre-Pooled Cryo Thawed 10units 210 / 210 Unit [id number] Rbc As-3 Leukoreduced Unit 400 / 400 [id number] Rbc As-3 Leukoreduced Unit 400 / 400 [id number] Rbc As-3 Leukoreduced Unit 400 / 400 [id number] Rbc As-3 Leukoreduced Unit 0 / 0 [id number] Output: Urine Amount (Catheter) 4150 / 4150 3325 / 3325 Indwelling Urethral Catheter 4150 / 4150 3325 / 3325 Other: Date of Last Bowel Movement 03/12/18 # Bowel Movements 0 # Incontinent Bowel Movements 2 Result Diagrams: 03/12/18 09:26 03/12/18 04:03 Objective Remarks: GENERAL: 58-year-old female in bed intubated sedated critically ill. SKIN: cool, poorly perfused, mottled. Tattoo right lower extremely HEAD: Atraumatic. Normocephalic. EYES: Pupils equal and round. No scleral icterus. No injection or drainage. ENT: No nasal bleeding or discharge. Mucous membranes pink and moist. Orotracheally intubated NECK: Trachea midline. significant JVD+. Right IJ PA catheter in place CARDIOVASCULAR: Tachycardic rate, hypotensive on multiple pressures. PAC in place with CO 4.2, CI 2.6, CVP 10, SVRI 979. On multiple pressors RESPIRATORY: Air entry equal bilaterally on PRVC mode. Basilar crackles diminished air entry GASTROINTESTINAL: Abdomen soft, non-tender, distended. Hepatic and splenic margins not palpable. MUSCULOSKELETAL: Extremities mottled. 1+ edema. No dopplerable pulse right lower extremity, cold clammy, nonfunctional now. Impella insertion site with significant bleeding. Remains on Flolan 50 mg/kg/min NEUROLOGICAL: RASS -2. Moving all extremities on sedation lightening. No focal deficits Assessment and Plan - Assessment and Plan Plan: Assessment: 58yF with new and worsening acute cardiogenic shock, now with hemorrhagic stroke also with need for mechanical support. Etiology could be alcohol induced cardiomyopathy (6-8 shots of vodka daily) versus Adriamycin induced cardiomyopathy, vs new viral myocarditis, given colitis as her presenting symptom. Continue mechanical support with Impella CP. US shows liver cirrhosis and patient has significant bleeding from right groin and lower GI. I will consult palliative care to assist with decisions making. I will also meet with family at 2 pm. Her chance of survival is minimal with multi organ failure NEUROLOGY/PSYCH: Acute metabolic encephalopathy Continue monitor neurological function, frequent neuro checks Versed and fentanyl for sedation and vent synchrony Morphine sulfate 2 mg IV every 4 hours as needed for pain encephalopathy secondary to cardiogenic shock. PULMONOLOGY Acute hypoxic respiratory failure secondary to pulmonary edema, pleural effusion L>R Pleural effusion Intubated 03/10 for acute decline. Status post thoracentesis by Dr. Nate Thompson 03/07 Albuterol/ipratropium aerosols every 6 hours and albuterol aerosols every 2 hours as needed vent bundle, hob elevated no weaning of mechanical ventilation until shock improves Start Flolan wean Per protocol CARDIOLOGY Cardiogenic shock, complicated by hemorrhagic shock now Acute systolic heart failure exacerbation Non-ischemic Cardiomyopathy (alcohol induced vs Adriamycin induced vs viral Elevated troponin Elevated BNP Ischemic right foot s/p Impella CP placement 03/10. P 6, Flow 3 L/ min, sig 106/75, UO >3L in 12 hours , lactate 3.5 milrinone at 0.375 mcg/kg/min, levophed 15 mcg/min, vasopressin 0.04 Amiodarone started for A. fib with RVR s/p LHC 03/10 with clean coronaries. EF now 20%. moderate RV dysfunction 2D Echo EF 30-35% 03/07. Previous echo prior to CHOP regimen showed normal ejection fraction Cardiomyopathy may be secondary to Adriamycin toxicity vs sev alcohol use Troponin have plateaued with troponin at 0.21 keep PA catheter, CI 2.6, SVRI 1237 trend lactates. watch cvp carefully: RV failure may ensue from LVAD, last CVP 10 Avoid over-diurese as this may cause suck-down of LVAD, currently on 45% fio2 with pulmonary edema heparin drip held due to supratherapeutic PTT, and severe GI bleed and right groin hematoma No pulse right lower extremity, unable to salvage the right limb because removal of Impella can be fatal at this time Dr. spence following GASTROENTEROLOGY Colitis, ? ischemic GI bleed External hemorrhoid Shock liver Liver cirrhosis NPO with OGT. GI is following the patient and has undergone upper and lower endoscopies which does indicate colitis, distal esophagitis, external hemorrhoids. 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 Continue p.o. Flagyl C. difficile, enteric pathogens, Giardia, stool for WBCs all appear to be negative Urine culture shows 50 - 100,000 of mixed [place] probable contaminants ENDOCRINOLOGY Diabetes mellitus Elevated TSH Continue Accu-Cheks with sliding scale insulin/aspart. On the metformin thousand grams twice daily at home TSH 6.89. Low free T3. Normal free T4. On levothyroxine 25 mcg daily. Continue IV Solu-Medrol 60 mg 12 hours Continue sliding scale, add Levemir 10 every 12 HEMATOLOGY Anemia requiring transfusion with hemorrhagic shock Coagulopathy secondary to shock liver, liver cirrhosis History of large B cell lymphoma macrocytic anemia Thrombocytopenia GI bleed with bleeding external hemorrhoid Status post multiple blood and blood product transfusions Today hemoglobin is 5.0 transfuse 3 units PRBC stat with calcium replacement Hematology is following the patient Source of blood loss is right groin impella site and lower GI bleed Heparin on hold for supratherapeutic PTT PROPHYLAXIS DVT prevention with sequential compression devices, on IV heparin currently on hold GI protection with Protonix LINES Mediport has been accessed, right IJ PA catheter in place CODE STATUS Full code This patient remains critically ill with one or more organ systems which are or may become a threat to life. I have spent in excess of 95 minutes discontinuously in the care and management of this patient. This time is exclusive of procedures, and includes, but is not limited to, evaluation of the patient, review of the medical record, discussions with family, consultants, nursing staff, or respiratory therapy, and documentation in the medical record. Specifically remained at bedside for the management of her refractory cardiogenic shock. I transported the patient down to the [facility] and managed hemodynamics while the [facility], and then transferred to the patient back to the ICU and remained at bedside for the management and stabilization of the left ventricular assist device.
[2018-03-12] MEDS ORDERED: Vancomycin Inj 1,000 MG in Sodium Chlor 0.9% Inj 250 ML IV.SIG ONE (12:00)
--- NOTE | 2018-03-12 12:19 | P.CONPAL ---
Consult Service: Palliative Care Requesting Physician: Nate Thompson Reason for Consult: a. To assist with evaluation and management of symptoms including: dyspnea, pain, diarrhea b. To assist medical decision maker(s) with: better understanding of current medical conditions; weighing benefits/burdens of medical treatment options; making medical treatment decisions. Primary Care Provider: Jay Mcnair History of Present Illness History of Present Illness: This is a 58 yo female with hx non hodgkin lymphoma in remission s/p R-CHOP x 6 cycles, DM, HLD, HTN, chronic diarrhea, etoh abuse, who presented 03/02 to ER with complaint of possible dehydration 2/2 diarrhea for 4 months, 3-4 x day, abd cramping, n/v. She reported that her mouth was dry. She sees Dr Thomas and had EGD the week prior which was unremarkable. She also sees Dr Downey for hx lymphoma. She reported that CT chest, abd, pelvis 10/2017 was benign. Reportedly she had [address] abd/pelvis done on admission suggestive colitis. She became hypotensive while in ER. * GI consulted, EGD/colonoscopy 03/05 found esophagitis, gastritis, colitis, hemorrhoidal bleeding s/p clipping, path benign * WAs noted to have pancytopenia, oncology consulted * 03/06 CXR new interstitial edema; EKG suggestive new anteroseptal infarct * 03/07 CT showing bilat pleural effusions, subq edema, colitis; ECHO show severely reduced ventricular systolic function with EF 30-35%; EKGs continue to show infarct; elevated troponin and BNP, [facility] consulted, thoracentesis performed ; cardiology consulted, pt not stable for ischemia w/u * 03/10 [facility] noted cardiogenic shock, pt intubated; cardiology performed left heart cath & impella placement, EF now estimated 10-15%; nephrology consulted for acute renal failure * 03/11 vascular surgery consulted for right leg ischemia, no revascularization with impella placed; subsequent imaging now suggestive cirrhosis * 03/12 She has been having continued drops in hgb requiring PRBC transfusion, coagulopathy, worsening LFTs, running fevers. She is on mult pressors & amiodarone. Per CCM refused transfer to heart transplant/[facility] center. Function/Cognitive Trajectory: Prior to this hospitalization was independent. Hx etoh abuse. PMF - History History Provided By: Patient, Medical Record (no fam hx cancer) - Medical History Medical History: Medical History (Last Reviewed 03/12/18 @ 07:48 by Mesfin Combs, PT) Diabetes High cholesterol History of appendicitis History of benign tumor of tongue History of chemotherapy History of hysterectomy History of lymphoma - Surgical History Surgical History: Surgical History (Last Reviewed 03/12/18 @ 07:48 by Mesfin Combs, PT) History of appendectomy History of arthroplasty of knee History of partial hysterectomy History of tonsillectomy History of tubal ligation - Family History Family History: Family History (Last Reviewed 03/07/18 @ 14:09 by TIMI Carrera) Other No pertinent family history - Tobacco History Second Hand Smoke Exposure: Yes Tobacco Use In Past 30 Days: Yes Smoking Status: Current every day smoker Tobacco Type: Cigarettes years: 40 - Alcohol History How Often Do You Have a Drink Containing Alcohol: 4 or more times a week (6-8 vodkas daily) - Substance Use History Substance History: No History of Abuse - Travel History Recent Travel in the [place] Within the Last 8 Weeks: No Recent Travel Out of the Country Within the Last 8 Weeks: No - Immunization History Tetanus Immunization: Unsure Hx Influenza Vaccine This Season: No Medications and Allergies Active Medications: Active Medications Albuterol (Albuterol Neb (Prn)) 2.5 mg NEB Q2HR NEB PRN PRN Reason: DYSPNEA Last Admin: 03/09/18 23:06 Dose: 2.5 mg Budesonide/Formoterol Fumarate (Symbicort 160/4.5 Mcg Inh) 2 puff INH BID [facility] Last Admin: 03/12/18 08:34 Dose: Not Given Cholestyramine Resin (Questran 4 Gm Pkt) 4 gm PO BID JYOTHI Last Admin: 03/12/18 10:58 Dose: 4 gm Dextrose (D50w Vial) 50 ml IV.PUSH UNSCH PRN PRN Reason: PER HYPOGLYCEMIA PROTOCOL Gelatin (Gelfoam 12 Mm/7 Mm Topical) 1 foam TOPICAL Q1H PRN PRN Reason: BLEEDING Last Admin: 03/12/18 04:57 Dose: 1 foam Glucagon (Glucagon Inj) 1 mg OTHER PRN PRN PRN Reason: for Hypoglycemia Protocol Magnesium Sulfate Inj 2 gm/ (Sodium Chloride) 100 mls @ 50 mls/hr IV.SIG UNSCH PRN PRN Reason: For Magnesium 1.2 - 1.6 mg/dL Last Infusion: 03/12/18 06:30 Dose: Infused Potassium Chloride (Kcl 20 Meq Premix Inj) 20 meq in 100 mls @ 50 mls/hr IV.SIG Q2H PRN PRN Reason: For Potassium 3.3 - 3.5 mEq/L Potassium Chloride (Kcl 40 Meq Premix Inj) 40 meq in 100 mls @ 25 mls/hr IV.SIG UNSCH PRN PRN Reason: For Potassium 3.3 - 3.5 mEq/L Last Infusion: 03/11/18 22:14 Dose: Infused Potassium Chloride (Kcl 20 Meq Premix Inj) 20 meq in 100 mls @ 50 mls/hr IV.SIG Q2H PRN PRN Reason: For Potassium 2.8 - 3.2 mEq/L Last Infusion: 03/06/18 13:22 Dose: Infused Potassium Phosphate 30 mmol/ (Sodium Chloride) 260 mls @ 42 mls/hr IV.SIG UNSCH PRN PRN Reason: SEE LABEL COMMENTS Sodium Phosphate 30 mmol/ (Sodium Chloride) 260 mls @ 42 mls/hr IV.SIG UNSCH PRN PRN Reason: For Phosphorus < 2.5 mg/dL Magnesium Sulfate Inj 4 gm/ (Sodium Chloride) 100 mls @ 50 mls/hr IV.SIG UNSCH PRN PRN Reason: For Magnesium 0.9 - 1.1 mg/dL Last Infusion: 03/07/18 03:38 Dose: Infused Potassium Chloride (Kcl 40 Meq Premix Inj) 40 meq in 100 mls @ 25 mls/hr IV.SIG Q2H PRN PRN Reason: For Potassium 2.8 - 3.2 mEq/L Last Admin: 03/12/18 08:16 Dose: 25 mls/hr Norepinephrine Bitartrate (Levophed-Dextrose 4 Mg/250 Ml Drip) 4 mg in 250 mls @ 7.5 mls/hr IV.SIG TITRATE PRN; Protocol PRN Reason: Per Protocol Last Admin: 03/12/18 09:25 Dose: 15 mcg/min, 56.25 mls/hr Piperacillin/Tazobactam/Dextrose (Zosyn 3.375 Gm Premix) 50 mls @ 100 mls/hr IV.SIG Q6H JYOTHI Last Infusion: 03/12/18 06:56 Dose: Infused Epinephrine HCl 4 mg/ Dextrose 250 mls @ 15 mls/hr IV.CONT TITRATE PRN; Protocol PRN Reason: See protocol Last Admin: 03/11/18 04:18 Dose: 2 mcg/min, 7.5 mls/hr Fentanyl (Fentanyl 10 Mcg/Ml Premix Drip) 2,500 mcg in 250 mls @ 5 mls/hr IV.SIG TITRATE PRN; Protocol PRN Reason: Per Protocol Last Admin: 03/11/18 11:54 Dose: 100 mcg/hr, 10 mls/hr Midazolam HCl (Versed Inj) 50 mg in 50 mls @ 2 mls/hr IV.CONT TITRATE PRN; Protocol PRN Reason: Per Protocol Last Admin: 03/12/18 03:15 Dose: 6 mg/hr, 6 mls/hr Heparin Sodium/Dextrose (Heparin/D5w 25,000 U/250 Ml) 25,000 unit in 250 mls @ 10 mls/hr IV.CONT TITRATE PRN; Protocol PRN Reason: Per Protocol Last Titration: 03/10/18 22:00 Dose: 0 units/hr, 0 mls/hr Vasopressin 40 unit/ Dextrose 100 mls @ 1.5 mls/hr IV.CONT TITRATE PRN; Protocol PRN Reason: Per Protocol Last Admin: 03/12/18 09:26 Dose: 0.04 units/min, 6 mls/hr Epoprostenol Sodium 62.5 ml/ (Sodium Chloride) 100 mls @ 8 mls/hr NEB Q8H [facility] Last Admin: 03/12/18 04:32 Dose: 8 mls/hr Milrinone Lactate 20 mg/ (Sodium Chloride) 100 mls @ 6.86 mls/hr IV.CONT .[id number] [facility] Last Admin: 03/12/18 04:08 Dose: 0.375 mcg/kg/min, 6.86 mls/hr Multivitamins 10 ml/ Thiamine HCl 100 mg/ Folic Acid 1 mg/Sodium Chloride 511.2 mls @ 125 mls/hr IV.SIG Q24H [facility] Stop: 03/13/18 22:06 Last Infusion: 03/12/18 01:37 Dose: Infused Amiodarone HCl 450 mg/ (Dextrose) 250 mls @ 33.33 mls/hr IV.CONT TITRATE PRN; Protocol PRN Reason: Per Protocol Last Admin: 03/12/18 05:54 Dose: 1 mg/min, 33.33 mls/hr Vancomycin HCl 1,000 mg/ (Sodium Chloride) 250 mls @ 250 mls/hr IV.SIG ONCE ONE Stop: 03/12/18 11:29 Insulin Aspart (Novolog Insulin Correctional Sugar Inj) 0 unit SQ ACHS [facility]; Protocol Last Admin: 03/12/18 09:26 Dose: 5 unit Insulin Detemir (Levemir Inj) 10 unit SQ BID [facility] Levothyroxine Sodium (Synthroid) 25 mcg PO DAILY@0600 [facility] Last Admin: 03/12/18 06:22 Dose: 25 mcg Magnesium Oxide (Mag-Ox) 800 mg PO UNSCH PRN PRN Reason: For Magnesium 1.2 - 1.6 mg/dL Methylprednisolone Sodium Succinate (Solumedrol Inj) 60 mg IV.PUSH Q12H [facility] Last Admin: 03/12/18 04:31 Dose: 60 mg Metronidazole (Flagyl) 500 mg PO Q8HR [facility] Last Admin: 03/12/18 06:22 Dose: 500 mg Morphine Sulfate (Morphine Inj) 2 mg IV.PUSH Q4H PRN PRN Reason: PAIN SCALE 1 TO 10 Last Admin: 03/09/18 23:53 Dose: 2 mg Pantoprazole Sodium (Protonix Inj) 40 mg IV.PUSH DAILY [facility] Last Admin: 03/12/18 09:27 Dose: 40 mg Potassium Bicarb/Potassium Chloride (K-Lyte Cl Eff) 50 meq PO UNSCH PRN PRN Reason: For Potassium 3.3 - 3.5 mEq/L Potassium Phosphate (K-Phos Original) 2,000 mg PO Q4H PRN PRN Reason: Phosphorus Less Than 2.5 mg/dL Last Admin: 03/03/18 14:17 Dose: 2,000 mg Potassium Phosphate (K-Phos Original) 2,000 mg PO UNSCH PRN PRN Reason: SEE LABEL COMMENTS Promethazine HCl (Phenergan) 25 mg PO Q4H PRN PRN Reason: NAUSEA OR VOMITING Last Admin: 03/09/18 16:03 Dose: 25 mg Sodium Chloride (Ns Flush) 2 ml IV.FLUSH BID [facility] Last Admin: 03/12/18 10:47 Dose: 2 ml Sodium Chloride (Ns Flush) 2 ml IV.FLUSH PRN PRN PRN Reason: FLUSH AFTER USING IV ACCESS Terbutaline Sulfate (Brethine Inj) 1 mg SQ UNSCH PRN PRN Reason: For Extravasation Allergies Allergy/AdvReac Type Severity Reaction Status Date / Time No Known Allergies Allergy Unverified 03/02/18 09:30 Home Medications Medication Instructions Recorded Confirmed Type atorvastatin 80 mg PO HS 03/02/18 03/03/18 History fenofibrate 160 mg PO HS 03/02/18 03/03/18 History metformin 1,000 mg PO HS 03/02/18 03/03/18 History omeprazole 40 mg PO DAILY 03/02/18 03/03/18 History ondansetron [Zofran ODT] 8 mg PO TID PRN 03/02/18 03/03/18 History acetaminophen [Tylenol Extra 500 mg PO DAILY 03/03/18 03/03/18 History Strength] aspirin [Xavier Aspirin] 162 mg PO DAILY 03/03/18 03/03/18 History losartan 25 mg PO DAILY 03/03/18 03/03/18 History kamatefk-jhrh-qlw-folic acid [One See Label Instructions .ROUTE 03/03/18 History Daily For Women] .COMPLEX potassium gluconate 550 mg PO DAILY 03/03/18 03/03/18 History Physical Exam Vital Signs: Vital Signs - 24 hr 03/11/18 12:00 03/11/18 12:09 03/11/18 12:26 Temperature 100.5 F H 100.1 F H Pulse Rate 119 H 119 H 113 H Respiratory Rate 12 12 Blood Pressure 93/72 L 95/71 L Pulse Oximetry 94 L 03/11/18 13:00 03/11/18 14:00 03/11/18 15:00 Temperature 100.8 F H Pulse Rate 114 H 120 H Respiratory Rate 21 13 Blood Pressure 89/66 L Pulse Oximetry 97 92 L 03/11/18 15:55 03/11/18 16:00 03/11/18 16:08 Temperature Pulse Rate 119 H 109 H Respiratory Rate 16 16 Blood Pressure Pulse Oximetry 88 L 03/11/18 16:51 03/11/18 17:07 03/11/18 18:00 Temperature 100.7 F H 100.1 F H Pulse Rate 107 H 106 H 106 H Respiratory Rate 11 L 13 Blood Pressure 91/65 L 96/73 L Pulse Oximetry 93 L 93 L 03/11/18 19:00 03/11/18 19:20 03/11/18 20:15 Temperature 100.5 F H Pulse Rate 98 H 96 H Respiratory Rate 10 L 10 L Blood Pressure 112/80 Pulse Oximetry 95 97 03/11/18 20:32 03/11/18 20:43 03/11/18 20:46 Temperature 100.3 F H 100.3 F H Pulse Rate 97 H 97 H 97 H Respiratory Rate 14 10 L 10 L Blood Pressure 109/78 108/77 Pulse Oximetry 95 96 03/11/18 21:00 03/11/18 21:14 03/11/18 22:09 Temperature 100.2 F H 100.1 F H Pulse Rate 99 H 99 H 103 H Respiratory Rate 10 L 14 Blood Pressure 108/78 108/78 106/79 Pulse Oximetry 96 96 03/11/18 22:45 03/11/18 23:00 03/11/18 23:15 Temperature 100.1 F H Pulse Rate 111 H 107 H Respiratory Rate 11 L 11 L Blood Pressure 111/87 Pulse Oximetry 97 96 03/11/18 23:23 03/12/18 00:00 03/12/18 00:09 Temperature 100.0 F H 99.9 F H Pulse Rate 107 H 107 H 107 H Respiratory Rate 12 13 Blood Pressure 108/83 103/79 105/81 Pulse Oximetry 93 L 96 03/12/18 00:51 03/12/18 03:00 03/12/18 03:50 Temperature 100.7 F H Pulse Rate 104 H Respiratory Rate 14 17 18 Blood Pressure 104/82 Pulse Oximetry 97 98 97 03/12/18 04:18 03/12/18 05:45 03/12/18 08:20 Temperature 101 F H Pulse Rate 103 H Respiratory Rate 16 Blood Pressure 97/71 L Pulse Oximetry 99 03/12/18 09:59 03/12/18 10:35 03/12/18 11:05 Temperature 100.2 F H 100.4 F H 100.8 F H Pulse Rate 116 H 109 H 102 H Respiratory Rate 20 15 Blood Pressure 82/62 L 113/79 110/76 Pulse Oximetry 99 03/12/18 11:26 Temperature 100.2 F H Pulse Rate 110 H Respiratory Rate 12 Blood Pressure 91/66 L Pulse Oximetry I&O: Intake & Output 03/10/18 03/11/18 03/12/18 03/13/18 06:59 06:59 06:59 06:59 Intake Total 3035 / 3035 5370 / 5370 7550.0 / 7550.0 1450 / 1450 Output Total 1000 / 1000 1450 / 1450 4150 / 4150 3325 / 3325 Balance 2034 / 2034 3920 / 3920 3400.0 / 3400.0 -1875 / -1875 Weight 61 kg 63.5 kg 69 kg Physical Exam: CONSTITUTIONAL/GENERAL: This is an obese female pt, ill appearing, intubated on vent TUBES/LINES/DRAINS: OETT morales central line impella/cath right groin SKIN: No jaundice, rashes, or lesions. +Ecchymoses on upper extremities. No wounds seen anteriorly. Skin temperature appropriate. Not diaphoretic. HEAD: Atraumatic. Normocephalic. EYES: PERRL. + scleral icterus. No injection or drainage. Fundi not examined. ENT: unable to assess hearing. Nose without bleeding or purulent drainage. Throat exam inhibited by OETT CARDIOVASCULAR: RRR without murmurs, gallops, or rubs. No JVD. RESPIRATORY/CHEST: Symmetric, unlabored respirations. Clear to auscultation. Breath sounds equal bilaterally. No wheezes, rales, or rhonchi. GASTROINTESTINAL: Abdomen soft, obese/distended. +hepatomegaly. bowel sounds hypoactive GENITOURINARY: Without palpable bladder distension. Morales catheter in place. MUSCULOSKELETAL: BLE edema L > R. RLE mottled, right foot cool NEUROLOGICAL: sedated on vent. PSYCHIATRIC: unable to assess, sedated on vent Diagnostic Tests Laboratory: Laboratory Results - last 72 hr 03/04/18 03/09/18 03/09/18 11:52 11:36 16:54 WBC RBC Hgb Hct MCV MCH MCHC RDW Plt Count MPV Prelim Diff (Auto) Neut % (Auto) Lymph % (Auto) [place] % (Auto) Eos % (Auto) Baso % (Auto) Neut # (Auto) Lymph # (Auto) [place] # (Auto) Eos # (Auto) Baso # (Auto) WBC Differential Diff Scan Differential Comment Platelet Estimate Platelet Morphology Spherocytes PT INR APTT Fibrinogen Puncture Site Patient Temperature O2 Saturation ABG pH ABG pCO2 ABG pO2 ABG HCO3 ABG O2 Content ABG Base Excess ABG Methemoglobin VBG pH VBG pCO2 VBG pO2 VBG HCO3 VBG O2 Saturation VBG O2 Content VBG Base Excess VBG Carboxyhemoglobin VBG Methemoglobin Hemoglobin Carboxyhemoglobin O2 Delivery Device Liter Flow Vent Setting Inspired O2 Critical Value Sodium Potassium Chloride Carbon Dioxide Anion Gap BUN Creatinine Estimated GFR POC Glucose 193 H 145 H Random Glucose Lactic Acid Calcium Phosphorus Magnesium Total Bilirubin AST ALT Alkaline Phosphatase Ammonia Total Creatine Kinase Troponin I Total Protein Albumin Amylase Lipase Urine Color Urine Clarity Urine pH Ur Specific [place] Urine Protein Urine Glucose (UA) Urine Ketones Urine Occult Blood Urine Nitrate Urine Bilirubin Urine Urobilinogen Ur Leukocyte Esterase Urine RBC Urine WBC Ur Squamous Epith Cells Amorphous Sediment Urine Bacteria Hyaline Casts Granular Casts Urine Mucus Micro UA Comment Ur Microscopic Review Urine Culture Comments Blood Type Antibody Screen MTS Gel Crossmatch See Detail Blood Bank Comment Bld Prod Order Comment 03/09/18 03/10/18 03/10/18 20:55 00:10 00:10 WBC 8.8 RBC 2.69 L Hgb 9.9 L Hct 30.8 L MCV 114.8 H D MCH 36.8 H MCHC 32.0 RDW 16.5 Plt Count 195 MPV 10.3 Prelim Diff (Auto) Neut % (Auto) 84.4 H Lymph % (Auto) 8.6 L [place] % (Auto) 6.9 Eos % (Auto) 0.0 Baso % (Auto) 0.1 Neut # (Auto) 7.5 Lymph # (Auto) 0.8 L [place] # (Auto) 0.6 Eos # (Auto) 0.0 Baso # (Auto) 0.0 WBC Differential . Diff Scan Differential Comment Auto diff final Platelet Estimate Platelet Morphology Spherocytes PT 50.0 H INR 5.0 APTT 33.8 H Fibrinogen Puncture Site Patient Temperature O2 Saturation ABG pH ABG pCO2 ABG pO2 ABG HCO3 ABG O2 Content ABG Base Excess ABG Methemoglobin VBG pH VBG pCO2 VBG pO2 VBG HCO3 VBG O2 Saturation VBG O2 Content VBG Base Excess VBG Carboxyhemoglobin VBG Methemoglobin Hemoglobin Carboxyhemoglobin O2 Delivery Device Liter Flow Vent Setting Inspired O2 Critical Value Sodium Potassium Chloride Carbon Dioxide Anion Gap BUN Creatinine Estimated GFR POC Glucose 195 H Random Glucose Lactic Acid Calcium Phosphorus Magnesium Total Bilirubin AST ALT Alkaline Phosphatase Ammonia Total Creatine Kinase Troponin I Total Protein Albumin Amylase Lipase Urine Color Urine Clarity Urine pH Ur Specific [place] Urine Protein Urine Glucose (UA) Urine Ketones Urine Occult Blood Urine Nitrate Urine Bilirubin Urine Urobilinogen Ur Leukocyte Esterase Urine RBC Urine WBC Ur Squamous Epith Cells Amorphous Sediment Urine Bacteria Hyaline Casts Granular Casts Urine Mucus Micro UA Comment Ur Microscopic Review Urine Culture Comments Blood Type Antibody Screen MTS Gel Crossmatch Blood Bank Comment Bld Prod Order Comment 03/10/18 03/10/18 03/10/18 00:10 00:10 00:10 WBC RBC Hgb Hct MCV MCH MCHC RDW Plt Count MPV Prelim Diff (Auto) Neut % (Auto) Lymph % (Auto) [place] % (Auto) Eos % (Auto) Baso % (Auto) Neut # (Auto) Lymph # (Auto) [place] # (Auto) Eos # (Auto) Baso # (Auto) WBC Differential Diff Scan Differential Comment Platelet Estimate Platelet Morphology Spherocytes PT INR APTT Fibrinogen Puncture Site Patient Temperature O2 Saturation ABG pH ABG pCO2 ABG pO2 ABG HCO3 ABG O2 Content ABG Base Excess ABG Methemoglobin VBG pH VBG pCO2 VBG pO2 VBG HCO3 VBG O2 Saturation VBG O2 Content VBG Base Excess VBG Carboxyhemoglobin VBG Methemoglobin Hemoglobin Carboxyhemoglobin O2 Delivery Device Liter Flow Vent Setting Inspired O2 Critical Value Sodium 140 Potassium 5.8 H D Chloride 104 Carbon Dioxide 13.1 L Anion Gap 23 H BUN 17 Creatinine 1.22 H Estimated GFR 45 L POC Glucose Random Glucose 219 H Lactic Acid 13.5 H* Calcium 8.0 L Phosphorus 6.4 H D Magnesium 2.2 Total Bilirubin 1.7 H AST 40 H ALT 34 Alkaline Phosphatase 132 H Ammonia 55 H Total Creatine Kinase 126 Troponin I 0.08 H D Total Protein 6.3 L Albumin 3.3 L Amylase 15 L Lipase 147 Urine Color Urine Clarity Urine pH Ur Specific [place] Urine Protein Urine Glucose (UA) Urine Ketones Urine Occult Blood Urine Nitrate Urine Bilirubin Urine Urobilinogen Ur Leukocyte Esterase Urine RBC Urine WBC Ur Squamous Epith Cells Amorphous Sediment Urine Bacteria Hyaline Casts Granular Casts Urine Mucus Micro UA Comment Ur Microscopic Review Urine Culture Comments Blood Type Antibody Screen MTS Gel Crossmatch Blood Bank Comment Bld Prod Order Comment 03/10/18 03/10/18 03/10/18 00:29 07:25 09:00 WBC RBC Hgb Hct MCV MCH MCHC RDW Plt Count MPV Prelim Diff (Auto) Neut % (Auto) Lymph % (Auto) [place] % (Auto) Eos % (Auto) Baso % (Auto) Neut # (Auto) Lymph # (Auto) [place] # (Auto) Eos # (Auto) Baso # (Auto) WBC Differential Diff Scan Differential Comment Platelet Estimate Platelet Morphology Spherocytes PT INR APTT Fibrinogen Puncture Site Right femoral Central line Patient Temperature 98.6 98.6 O2 Saturation 90 ABG pH 7.17 L* ABG pCO2 19 L* ABG pO2 87 ABG HCO3 7 L* ABG O2 Content 14.9 ABG Base Excess -20.4 L ABG Methemoglobin 1.5 VBG pH 7.21 L* VBG pCO2 32 L VBG pO2 21 L* VBG HCO3 12 L* VBG O2 Saturation 16 L VBG O2 Content 2.1 L VBG Base Excess -14.1 L VBG Carboxyhemoglobin 0.5 VBG Methemoglobin 1.5 Hemoglobin 11.7 L 9.1 L Carboxyhemoglobin 0.3 O2 Delivery Device Nasal cannula Nasal cannula Liter Flow 6.00 4.00 Vent Setting Inspired O2 Critical Value Yes Yes Sodium Potassium Chloride Carbon Dioxide Anion Gap BUN Creatinine Estimated GFR POC Glucose Random Glucose Lactic Acid Calcium Phosphorus Magnesium Total Bilirubin AST ALT Alkaline Phosphatase Ammonia Total Creatine Kinase Troponin I Total Protein Albumin Amylase Lipase Urine Color Yellow Urine Clarity Hazy H Urine pH 5.0 Ur Specific [place] 1.010 Urine Protein 30 H Urine Glucose (UA) Negative Urine Ketones Negative Urine Occult Blood Small H Urine Nitrate Negative Urine Bilirubin Negative Urine Urobilinogen Less than 2 Ur Leukocyte Esterase Negative Urine RBC 2 Urine WBC 4 Ur Squamous Epith Cells 1 Amorphous Sediment Few H Urine Bacteria Rare H Hyaline Casts 1 Granular Casts 1 Urine Mucus Few H Micro UA Comment Cath-culture ind Ur Microscopic Review Not Reportable Urine Culture Comments Cath-cult indicated Blood Type Antibody Screen MTS Gel Crossmatch Blood Bank Comment Bld Prod Order Comment 03/10/18 03/10/18 03/10/18 14:20 17:15 21:25 WBC RBC Hgb Hct MCV MCH MCHC RDW Plt Count MPV Prelim Diff (Auto) Neut % (Auto) Lymph % (Auto) [place] % (Auto) Eos % (Auto) Baso % (Auto) Neut # (Auto) Lymph # (Auto) [place] # (Auto) Eos # (Auto) Baso # (Auto) WBC Differential Diff Scan Differential Comment Platelet Estimate Platelet Morphology Spherocytes PT INR APTT Fibrinogen Puncture Site Patient Temperature O2 Saturation ABG pH ABG pCO2 ABG pO2 ABG HCO3 ABG O2 Content ABG Base Excess ABG Methemoglobin VBG pH VBG pCO2 VBG pO2 VBG HCO3 VBG O2 Saturation VBG O2 Content VBG Base Excess VBG Carboxyhemoglobin VBG Methemoglobin Hemoglobin Carboxyhemoglobin O2 Delivery Device Liter Flow Vent Setting Inspired O2 Critical Value Sodium Potassium Chloride Carbon Dioxide Anion Gap BUN Creatinine Estimated GFR POC Glucose 162 H Random Glucose Lactic Acid Calcium Phosphorus Magnesium Total Bilirubin AST ALT Alkaline Phosphatase Ammonia Total Creatine Kinase Troponin I Total Protein Albumin Amylase Lipase Urine Color Urine Clarity Urine pH Ur Specific [place] Urine Protein Urine Glucose (UA) Urine Ketones Urine Occult Blood Urine Nitrate Urine Bilirubin Urine Urobilinogen Ur Leukocyte Esterase Urine RBC Urine WBC Ur Squamous Epith Cells Amorphous Sediment Urine Bacteria Hyaline Casts Granular Casts Urine Mucus Micro UA Comment Ur Microscopic Review Urine Culture Comments Blood Type A Positive Antibody Screen Negative MTS Gel Crossmatch See Detail Blood Bank Comment Bld Prod Order Comment 03/10/18 03/11/18 03/11/18 21:25 00:25 03:10 WBC RBC Hgb Hct MCV MCH MCHC RDW Plt Count MPV Prelim Diff (Auto) Neut % (Auto) Lymph % (Auto) [place] % (Auto) Eos % (Auto) Baso % (Auto) Neut # (Auto) Lymph # (Auto) [place] # (Auto) Eos # (Auto) Baso # (Auto) WBC Differential Diff Scan Differential Comment Platelet Estimate Platelet Morphology Spherocytes PT 27.5 H D INR 2.7 APTT Greater than 90.0 H* D 201.9 H* D 169.0 H* Fibrinogen Puncture Site Patient Temperature O2 Saturation ABG pH ABG pCO2 ABG pO2 ABG HCO3 ABG O2 Content ABG Base Excess ABG Methemoglobin VBG pH VBG pCO2 VBG pO2 VBG HCO3 VBG O2 Saturation VBG O2 Content VBG Base Excess VBG Carboxyhemoglobin VBG Methemoglobin Hemoglobin Carboxyhemoglobin O2 Delivery Device Liter Flow Vent Setting Inspired O2 Critical Value Sodium Potassium Chloride Carbon Dioxide Anion Gap BUN Creatinine Estimated GFR POC Glucose Random Glucose Lactic Acid Calcium Phosphorus Magnesium Total Bilirubin AST ALT Alkaline Phosphatase Ammonia Total Creatine Kinase Troponin I Total Protein Albumin Amylase Lipase Urine Color Urine Clarity Urine pH Ur Specific [place] Urine Protein Urine Glucose (UA) Urine Ketones Urine Occult Blood Urine Nitrate Urine Bilirubin Urine Urobilinogen Ur Leukocyte Esterase Urine RBC Urine WBC Ur Squamous Epith Cells Amorphous Sediment Urine Bacteria Hyaline Casts Granular Casts Urine Mucus Micro UA Comment Ur Microscopic Review Urine Culture Comments Blood Type Antibody Screen Bilibot Gel Crossmatch Blood Bank Comment Bld Prod Order Comment 03/11/18 03/11/18 03/11/18 05:00 05:10 05:10 WBC 9.8 RBC 1.65 L Hgb 5.4 L* D Hct 15.8 L* MCV 95.6 D MCH 33.0 MCHC 34.5 RDW 27.3 H D Plt Count 98 L D MPV 9.4 Prelim Diff (Auto) Neut % (Auto) Lymph % (Auto) [place] % (Auto) Eos % (Auto) Baso % (Auto) Neut # (Auto) Lymph # (Auto) [place] # (Auto) Eos # (Auto) Baso # (Auto) WBC Differential Diff Scan Differential Comment Platelet Estimate Platelet Morphology Spherocytes PT INR APTT Fibrinogen Puncture Site Art line Patient Temperature 98.6 O2 Saturation 96 ABG pH 7.54 H* ABG pCO2 36 L ABG pO2 119 ABG HCO3 31 H ABG O2 Content 7.5 L ABG Base Excess 7.8 H ABG Methemoglobin 1.5 VBG pH VBG pCO2 VBG pO2 VBG HCO3 VBG O2 Saturation VBG O2 Content VBG Base Excess VBG Carboxyhemoglobin VBG Methemoglobin Hemoglobin 5.3 L* Carboxyhemoglobin 1.5 O2 Delivery Device Ventilator Liter Flow Vent Setting Prvc/ac Inspired O2 60 Critical Value Yes Sodium 144 Potassium 4.6 D Chloride 98 Carbon Dioxide 31.5 D Anion Gap 15 BUN 28 H Creatinine 1.66 H Estimated GFR 32 L POC Glucose Random Glucose 232 H Lactic Acid Calcium 8.1 L Phosphorus 3.9 D Magnesium 1.4 L D Total Bilirubin 4.0 H AST 198 H ALT 53 Alkaline Phosphatase 69 Ammonia Total Creatine Kinase Troponin I Total Protein 4.8 L D Albumin 3.1 L Amylase Lipase Urine Color Urine Clarity Urine pH Ur Specific [place] Urine Protein Urine Glucose (UA) Urine Ketones Urine Occult Blood Urine Nitrate Urine Bilirubin Urine Urobilinogen Ur Leukocyte Esterase Urine RBC Urine WBC Ur Squamous Epith Cells Amorphous Sediment Urine Bacteria Hyaline Casts Granular Casts Urine Mucus Micro UA Comment Ur Microscopic Review Urine Culture Comments Blood Type Antibody Screen MTS Gel Crossmatch Blood Bank Comment Bld Prod Order Comment 03/11/18 03/11/18 03/11/18 06:24 07:40 07:40 WBC RBC Hgb Hct MCV MCH MCHC RDW Plt Count MPV Prelim Diff (Auto) Neut % (Auto) Lymph % (Auto) [place] % (Auto) Eos % (Auto) Baso % (Auto) Neut # (Auto) Lymph # (Auto) [place] # (Auto) Eos # (Auto) Baso # (Auto) WBC Differential Diff Scan Differential Comment Platelet Estimate Platelet Morphology Spherocytes PT INR APTT 138.9 H* Fibrinogen Puncture Site Patient Temperature O2 Saturation ABG pH ABG pCO2 ABG pO2 ABG HCO3 ABG O2 Content ABG Base Excess ABG Methemoglobin VBG pH VBG pCO2 VBG pO2 VBG HCO3 VBG O2 Saturation VBG O2 Content VBG Base Excess VBG Carboxyhemoglobin VBG Methemoglobin Hemoglobin Carboxyhemoglobin O2 Delivery Device Liter Flow Vent Setting Inspired O2 Critical Value Sodium Potassium Chloride Carbon Dioxide Anion Gap BUN Creatinine Estimated GFR POC Glucose Random Glucose Lactic Acid 8.5 H* Calcium Phosphorus Magnesium Total Bilirubin AST ALT Alkaline Phosphatase Ammonia Total Creatine Kinase Troponin I Total Protein Albumin Amylase Lipase Urine Color Urine Clarity Urine pH Ur Specific [place] Urine Protein Urine Glucose (UA) Urine Ketones Urine Occult Blood Urine Nitrate Urine Bilirubin Urine Urobilinogen Ur Leukocyte Esterase Urine RBC Urine WBC Ur Squamous Epith Cells Amorphous Sediment Urine Bacteria Hyaline Casts Granular Casts Urine Mucus Micro UA Comment Ur Microscopic Review Urine Culture Comments Blood Type Antibody Screen MTS Gel Crossmatch See Detail Blood Bank Comment Bld Prod Order Comment 03/11/18 03/11/18 03/11/18 08:51 10:36 13:03 WBC RBC Hgb Hct MCV MCH MCHC RDW Plt Count MPV Prelim Diff (Auto) Neut % (Auto) Lymph % (Auto) [place] % (Auto) Eos % (Auto) Baso % (Auto) Neut # (Auto) Lymph # (Auto) [place] # (Auto) Eos # (Auto) Baso # (Auto) WBC Differential Diff Scan Differential Comment Platelet Estimate Platelet Morphology Spherocytes PT INR APTT Fibrinogen Puncture Site Patient Temperature O2 Saturation ABG pH ABG pCO2 ABG pO2 ABG HCO3 ABG O2 Content ABG Base Excess ABG Methemoglobin VBG pH VBG pCO2 VBG pO2 VBG HCO3 VBG O2 Saturation VBG O2 Content VBG Base Excess VBG Carboxyhemoglobin VBG Methemoglobin Hemoglobin Carboxyhemoglobin O2 Delivery Device Liter Flow Vent Setting Inspired O2 Critical Value Sodium Potassium Chloride Carbon Dioxide Anion Gap BUN Creatinine Estimated GFR POC Glucose 278 H 346 H Random Glucose Lactic Acid Calcium Phosphorus Magnesium Total Bilirubin AST ALT Alkaline Phosphatase Ammonia Total Creatine Kinase Troponin I Total Protein Albumin Amylase Lipase Urine Color Urine Clarity Urine pH Ur Specific [place] Urine Protein Urine Glucose (UA) Urine Ketones Urine Occult Blood Urine Nitrate Urine Bilirubin Urine Urobilinogen Ur Leukocyte Esterase Urine RBC Urine WBC Ur Squamous Epith Cells Amorphous Sediment Urine Bacteria Hyaline Casts Granular Casts Urine Mucus Micro UA Comment Ur Microscopic Review Urine Culture Comments Blood Type Antibody Screen MTS Gel Crossmatch Blood Bank Comment Bld Prod Order Comment 03/11/18 03/11/18 03/11/18 13:30 13:30 13:30 WBC 8.9 RBC 3.24 L Hgb 10.1 L D Hct 28.9 L MCV 89.0 D MCH 31.1 MCHC 34.9 RDW 20.4 H D Plt Count 77 L MPV 9.2 Prelim Diff (Auto) Neut % (Auto) Lymph % (Auto) [place] % (Auto) Eos % (Auto) Baso % (Auto) Neut # (Auto) Lymph # (Auto) [place] # (Auto) Eos # (Auto) Baso # (Auto) WBC Differential Diff Scan Differential Comment Platelet Estimate Platelet Morphology Spherocytes PT INR APTT Fibrinogen Puncture Site Patient Temperature O2 Saturation ABG pH ABG pCO2 ABG pO2 ABG HCO3 ABG O2 Content ABG Base Excess ABG Methemoglobin VBG pH VBG pCO2 VBG pO2 VBG HCO3 VBG O2 Saturation VBG O2 Content VBG Base Excess VBG Carboxyhemoglobin VBG Methemoglobin Hemoglobin Carboxyhemoglobin O2 Delivery Device Liter Flow Vent Setting Inspired O2 Critical Value Sodium 139 Potassium 4.1 Chloride 92 L Carbon Dioxide 32.5 H Anion Gap 15 BUN 29 H Creatinine 1.80 H Estimated GFR 29 L POC Glucose Random Glucose 290 H Lactic Acid 4.9 H* Calcium 9.5 D Phosphorus Magnesium 1.7 Total Bilirubin 4.7 H AST 269 H ALT 77 H Alkaline Phosphatase 66 Ammonia Total Creatine Kinase Troponin I Total Protein 5.3 L Albumin 3.2 L Amylase Lipase Urine Color Urine Clarity Urine pH Ur Specific [place] Urine Protein Urine Glucose (UA) Urine Ketones Urine Occult Blood Urine Nitrate Urine Bilirubin Urine Urobilinogen Ur Leukocyte Esterase Urine RBC Urine WBC Ur Squamous Epith Cells Amorphous Sediment Urine Bacteria Hyaline Casts Granular Casts Urine Mucus Micro UA Comment Ur Microscopic Review Urine Culture Comments Blood Type Antibody Screen MTS Gel Crossmatch Blood Bank Comment Bld Prod Order Comment 03/11/18 03/11/18 03/11/18 13:30 16:26 16:55 WBC RBC Hgb Hct MCV MCH MCHC RDW Plt Count MPV Prelim Diff (Auto) Neut % (Auto) Lymph % (Auto) [place] % (Auto) Eos % (Auto) Baso % (Auto) Neut # (Auto) Lymph # (Auto) [place] # (Auto) Eos # (Auto) Baso # (Auto) WBC Differential Diff Scan Differential Comment Platelet Estimate Platelet Morphology Spherocytes PT INR APTT 78.8 H D Fibrinogen Puncture Site Patient Temperature O2 Saturation ABG pH ABG pCO2 ABG pO2 ABG HCO3 ABG O2 Content ABG Base Excess ABG Methemoglobin VBG pH VBG pCO2 VBG pO2 VBG HCO3 VBG O2 Saturation VBG O2 Content VBG Base Excess VBG Carboxyhemoglobin VBG Methemoglobin Hemoglobin Carboxyhemoglobin O2 Delivery Device Liter Flow Vent Setting Inspired O2 Critical Value Sodium Potassium Chloride Carbon Dioxide Anion Gap BUN Creatinine Estimated GFR POC Glucose 199 H Random Glucose Lactic Acid Calcium Phosphorus Magnesium Total Bilirubin AST ALT Alkaline Phosphatase Ammonia Total Creatine Kinase Troponin I Total Protein Albumin Amylase Lipase Urine Color Urine Clarity Urine pH Ur Specific [place] Urine Protein Urine Glucose (UA) Urine Ketones Urine Occult Blood Urine Nitrate Urine Bilirubin Urine Urobilinogen Ur Leukocyte Esterase Urine RBC Urine WBC Ur Squamous Epith Cells Amorphous Sediment Urine Bacteria Hyaline Casts Granular Casts Urine Mucus Micro UA Comment Ur Microscopic Review Urine Culture Comments Blood Type Antibody Screen MTS Gel Crossmatch See Detail Blood Bank Comment Bld Prod Order Comment 03/11/18 03/11/18 03/11/18 17:00 17:00 17:00 WBC ND RBC ND Hgb ND Hct ND MCV ND MCH ND MCHC ND RDW ND Plt Count ND MPV ND Prelim Diff (Auto) Neut % (Auto) Lymph % (Auto) [place] % (Auto) Eos % (Auto) Baso % (Auto) Neut # (Auto) Lymph # (Auto) [place] # (Auto) Eos # (Auto) Baso # (Auto) WBC Differential Diff Scan Differential Comment Platelet Estimate Platelet Morphology Spherocytes PT INR APTT Fibrinogen Puncture Site Patient Temperature O2 Saturation ABG pH ABG pCO2 ABG pO2 ABG HCO3 ABG O2 Content ABG Base Excess ABG Methemoglobin VBG pH VBG pCO2 VBG pO2 VBG HCO3 VBG O2 Saturation VBG O2 Content VBG Base Excess VBG Carboxyhemoglobin VBG Methemoglobin Hemoglobin Carboxyhemoglobin O2 Delivery Device Liter Flow Vent Setting Inspired O2 Critical Value Sodium ND Potassium ND Chloride ND Carbon Dioxide ND Anion Gap ND BUN ND Creatinine ND Estimated GFR ND POC Glucose Random Glucose ND Lactic Acid 4.2 H* Calcium ND Phosphorus Magnesium Total Bilirubin ND AST ND ALT ND Alkaline Phosphatase ND Ammonia Total Creatine Kinase Troponin I Total Protein ND Albumin ND Amylase Lipase Urine Color Urine Clarity Urine pH Ur Specific [place] Urine Protein Urine Glucose (UA) Urine Ketones Urine Occult Blood Urine Nitrate Urine Bilirubin Urine Urobilinogen Ur Leukocyte Esterase Urine RBC Urine WBC Ur Squamous Epith Cells Amorphous Sediment Urine Bacteria Hyaline Casts Granular Casts Urine Mucus Micro UA Comment Ur Microscopic Review Urine Culture Comments Blood Type Antibody Screen MTS Gel Crossmatch Blood Bank Comment Bld Prod Order Comment 03/11/18 03/11/18 03/11/18 17:00 17:00 18:11 WBC RBC Hgb Hct MCV MCH MCHC RDW Plt Count MPV Prelim Diff (Auto) Neut % (Auto) Lymph % (Auto) [place] % (Auto) Eos % (Auto) Baso % (Auto) Neut # (Auto) Lymph # (Auto) [place] # (Auto) Eos # (Auto) Baso # (Auto) WBC Differential Diff Scan Differential Comment Platelet Estimate Platelet Morphology Spherocytes PT ND INR ND APTT ND Fibrinogen ND Puncture Site Patient Temperature O2 Saturation ABG pH ABG pCO2 ABG pO2 ABG HCO3 ABG O2 Content ABG Base Excess ABG Methemoglobin VBG pH VBG pCO2 VBG pO2 VBG HCO3 VBG O2 Saturation VBG O2 Content VBG Base Excess VBG Carboxyhemoglobin VBG Methemoglobin Hemoglobin Carboxyhemoglobin O2 Delivery Device Liter Flow Vent Setting Inspired O2 Critical Value Sodium Potassium Chloride Carbon Dioxide Anion Gap BUN Creatinine Estimated GFR POC Glucose Random Glucose Lactic Acid Calcium Phosphorus Magnesium ND Total Bilirubin AST ALT Alkaline Phosphatase Ammonia Total Creatine Kinase Troponin I Total Protein Albumin Amylase Lipase Urine Color Urine Clarity Urine pH Ur Specific [place] Urine Protein Urine Glucose (UA) Urine Ketones Urine Occult Blood Urine Nitrate Urine Bilirubin Urine Urobilinogen Ur Leukocyte Esterase Urine RBC Urine WBC Ur Squamous Epith Cells Amorphous Sediment Urine Bacteria Hyaline Casts Granular Casts Urine Mucus Micro UA Comment Ur Microscopic Review Urine Culture Comments Blood Type Antibody Screen MTS Gel Crossmatch Blood Bank Comment Bld Prod Order Comment 03/11/18 03/11/18 03/11/18 18:33 18:46 18:47 WBC RBC Hgb Hct MCV MCH MCHC RDW Plt Count MPV Prelim Diff (Auto) Neut % (Auto) Lymph % (Auto) [place] % (Auto) Eos % (Auto) Baso % (Auto) Neut # (Auto) Lymph # (Auto) [place] # (Auto) Eos # (Auto) Baso # (Auto) WBC Differential Diff Scan Differential Comment Platelet Estimate Platelet Morphology Spherocytes PT INR APTT Fibrinogen Puncture Site Patient Temperature O2 Saturation ABG pH ABG pCO2 ABG pO2 ABG HCO3 ABG O2 Content ABG Base Excess ABG Methemoglobin VBG pH VBG pCO2 VBG pO2 VBG HCO3 VBG O2 Saturation VBG O2 Content VBG Base Excess VBG Carboxyhemoglobin VBG Methemoglobin Hemoglobin Carboxyhemoglobin O2 Delivery Device Liter Flow Vent Setting Inspired O2 Critical Value Sodium Potassium Chloride Carbon Dioxide Anion Gap BUN Creatinine Estimated GFR POC Glucose Random Glucose Lactic Acid Calcium Phosphorus Magnesium Total Bilirubin AST ALT Alkaline Phosphatase Ammonia Total Creatine Kinase Troponin I Total Protein Albumin Amylase Lipase Urine Color Urine Clarity Urine pH Ur Specific [place] Urine Protein Urine Glucose (UA) Urine Ketones Urine Occult Blood Urine Nitrate Urine Bilirubin Urine Urobilinogen Ur Leukocyte Esterase Urine RBC Urine WBC Ur Squamous Epith Cells Amorphous Sediment Urine Bacteria Hyaline Casts Granular Casts Urine Mucus Micro UA Comment Ur Microscopic Review Urine Culture Comments Blood Type Antibody Screen MTS Gel Crossmatch Blood Bank Comment Bld Prod Order Comment 03/11/18 03/11/18 03/11/18 19:15 19:15 19:15 WBC 8.1 RBC 3.16 L Hgb 10.5 L Hct 28.5 L MCV 90.3 MCH 33.2 MCHC 36.7 H RDW 17.6 H D Plt Count 70 L MPV 8.7 Prelim Diff (Auto) Slide review pending Neut % (Auto) 88.9 H Lymph % (Auto) 4.8 L [place] % (Auto) 6.1 Eos % (Auto) 0.0 Baso % (Auto) 0.2 Neut # (Auto) 7.2 Lymph # (Auto) 0.4 L [place] # (Auto) 0.5 Eos # (Auto) 0.0 Baso # (Auto) 0.0 WBC Differential . Diff Scan Auto diff confirmed Differential Comment . Platelet Estimate Low L Platelet Morphology Normal Spherocytes 2+ H PT 19.3 H INR 1.9 APTT 117.1 H* D Fibrinogen 239 Puncture Site Patient Temperature O2 Saturation ABG pH ABG pCO2 ABG pO2 ABG HCO3 ABG O2 Content ABG Base Excess ABG Methemoglobin VBG pH VBG pCO2 VBG pO2 VBG HCO3 VBG O2 Saturation VBG O2 Content VBG Base Excess VBG Carboxyhemoglobin VBG Methemoglobin Hemoglobin Carboxyhemoglobin O2 Delivery Device Liter Flow Vent Setting Inspired O2 Critical Value Sodium 137 Potassium 3.9 Chloride 90 L Carbon Dioxide 34.7 H Anion Gap 12 BUN 30 H Creatinine 1.81 H Estimated GFR 29 L POC Glucose Random Glucose 247 H Lactic Acid Calcium 8.4 L D Phosphorus Magnesium 1.6 Total Bilirubin 5.3 H AST 329 H ALT 90 H Alkaline Phosphatase 60 Ammonia Total Creatine Kinase Troponin I Total Protein 5.4 L Albumin 3.4 Amylase Lipase Urine Color Urine Clarity Urine pH Ur Specific [place] Urine Protein Urine Glucose (UA) Urine Ketones Urine Occult Blood Urine Nitrate Urine Bilirubin Urine Urobilinogen Ur Leukocyte Esterase Urine RBC Urine WBC Ur Squamous Epith Cells Amorphous Sediment Urine Bacteria Hyaline Casts Granular Casts Urine Mucus Micro UA Comment Ur Microscopic Review Urine Culture Comments Blood Type Antibody Screen MTS Gel Crossmatch Blood Bank Comment Bld Prod Order Comment 03/11/18 03/11/18 03/11/18 21:43 21:44 Unknown WBC RBC Hgb Hct MCV MCH MCHC RDW Plt Count MPV Prelim Diff (Auto) Neut % (Auto) Lymph % (Auto) [place] % (Auto) Eos % (Auto) Baso % (Auto) Neut # (Auto) Lymph # (Auto) [place] # (Auto) Eos # (Auto) Baso # (Auto) WBC Differential Diff Scan Differential Comment Platelet Estimate Platelet Morphology Spherocytes PT INR APTT Fibrinogen Puncture Site Patient Temperature O2 Saturation ABG pH ABG pCO2 ABG pO2 ABG HCO3 ABG O2 Content ABG Base Excess ABG Methemoglobin VBG pH VBG pCO2 VBG pO2 VBG HCO3 VBG O2 Saturation VBG O2 Content VBG Base Excess VBG Carboxyhemoglobin VBG Methemoglobin Hemoglobin Carboxyhemoglobin O2 Delivery Device Liter Flow Vent Setting Inspired O2 Critical Value Sodium Potassium Chloride Carbon Dioxide Anion Gap BUN Creatinine Estimated GFR POC Glucose 330 H 344 H Random Glucose Lactic Acid Calcium Phosphorus Magnesium Total Bilirubin AST ALT Alkaline Phosphatase Ammonia Total Creatine Kinase Troponin I Total Protein Albumin Amylase Lipase Urine Color Urine Clarity Urine pH Ur Specific [place] Urine Protein Urine Glucose (UA) Urine Ketones Urine Occult Blood Urine Nitrate Urine Bilirubin Urine Urobilinogen Ur Leukocyte Esterase Urine RBC Urine WBC Ur Squamous Epith Cells Amorphous Sediment Urine Bacteria Hyaline Casts Granular Casts Urine Mucus Micro UA Comment Ur Microscopic Review Urine Culture Comments Blood Type Antibody Screen MTS Gel Crossmatch Blood Bank Comment Bld Prod Order Comment 03/12/18 03/12/18 03/12/18 04:03 04:03 04:03 WBC RBC Hgb Hct MCV MCH MCHC RDW Plt Count MPV Prelim Diff (Auto) Neut % (Auto) Lymph % (Auto) [place] % (Auto) Eos % (Auto) Baso % (Auto) Neut # (Auto) Lymph # (Auto) [place] # (Auto) Eos # (Auto) Baso # (Auto) WBC Differential Diff Scan Differential Comment Platelet Estimate Platelet Morphology Spherocytes PT 15.4 H INR 1.5 APTT 58.2 H D Fibrinogen Puncture Site Patient Temperature O2 Saturation ABG pH ABG pCO2 ABG pO2 ABG HCO3 ABG O2 Content ABG Base Excess ABG Methemoglobin VBG pH VBG pCO2 VBG pO2 VBG HCO3 VBG O2 Saturation VBG O2 Content VBG Base Excess VBG Carboxyhemoglobin VBG Methemoglobin Hemoglobin Carboxyhemoglobin O2 Delivery Device Liter Flow Vent Setting Inspired O2 Critical Value Sodium 133 L Potassium 3.2 L Chloride 84 L Carbon Dioxide 35.7 H Anion Gap 13 BUN 31 H Creatinine 1.77 H Estimated GFR 29 L POC Glucose Random Glucose 256 H Lactic Acid 3.5 H Calcium 8.2 L Phosphorus 3.7 Magnesium 2.2 D Total Bilirubin 8.7 H AST 373 H ALT 102 H Alkaline Phosphatase 77 Ammonia Total Creatine Kinase Troponin I Total Protein 6.5 D Albumin 3.6 Amylase Lipase Urine Color Urine Clarity Urine pH Ur Specific [place] Urine Protein Urine Glucose (UA) Urine Ketones Urine Occult Blood Urine Nitrate Urine Bilirubin Urine Urobilinogen Ur Leukocyte Esterase Urine RBC Urine WBC Ur Squamous Epith Cells Amorphous Sediment Urine Bacteria Hyaline Casts Granular Casts Urine Mucus Micro UA Comment Ur Microscopic Review Urine Culture Comments Blood Type Antibody Screen MTS Gel Crossmatch Blood Bank Comment Bld Prod Order Comment 03/12/18 03/12/18 03/12/18 06:10 08:52 08:56 WBC RBC Hgb Hct MCV MCH MCHC RDW Plt Count MPV Prelim Diff (Auto) Neut % (Auto) Lymph % (Auto) [place] % (Auto) Eos % (Auto) Baso % (Auto) Neut # (Auto) Lymph # (Auto) [place] # (Auto) Eos # (Auto) Baso # (Auto) WBC Differential Diff Scan Differential Comment Platelet Estimate Platelet Morphology Spherocytes PT INR APTT Fibrinogen Puncture Site Art line Patient Temperature 98.6 O2 Saturation 96 ABG pH 7.52 H* ABG pCO2 44 H ABG pO2 160 H ABG HCO3 36 H ABG O2 Content 11.2 L ABG Base Excess 11.9 H ABG Methemoglobin 1.6 VBG pH VBG pCO2 VBG pO2 VBG HCO3 VBG O2 Saturation VBG O2 Content VBG Base Excess VBG Carboxyhemoglobin VBG Methemoglobin Hemoglobin 8.0 L Carboxyhemoglobin 1.7 O2 Delivery Device Ventilator Liter Flow Vent Setting Prvc/ac Inspired O2 60 Critical Value Yes Sodium Potassium Chloride Carbon Dioxide Anion Gap BUN Creatinine Estimated GFR POC Glucose Random Glucose Lactic Acid Calcium Phosphorus Magnesium Total Bilirubin AST ALT Alkaline Phosphatase Ammonia Total Creatine Kinase Troponin I Total Protein Albumin Amylase Lipase Urine Color Urine Clarity Urine pH Ur Specific [place] Urine Protein Urine Glucose (UA) Urine Ketones Urine Occult Blood Urine Nitrate Urine Bilirubin Urine Urobilinogen Ur Leukocyte Esterase Urine RBC Urine WBC Ur Squamous Epith Cells Amorphous Sediment Urine Bacteria Hyaline Casts Granular Casts Urine Mucus Micro UA Comment Ur Microscopic Review Urine Culture Comments Blood Type Antibody Screen MTS Gel Crossmatch See Detail Blood Bank Comment Bld Prod Order Comment 03/12/18 03/12/18 03/12/18 09:15 09:26 09:26 WBC 14.0 H D RBC 1.38 L Hgb 5.0 L* D Hct 13.8 L* MCV 100.2 H D MCH 36.2 H MCHC 36.2 H RDW 18.6 H Plt Count 94 L D MPV 8.9 Prelim Diff (Auto) Neut % (Auto) Lymph % (Auto) [place] % (Auto) Eos % (Auto) Baso % (Auto) Neut # (Auto) Lymph # (Auto) [place] # (Auto) Eos # (Auto) Baso # (Auto) WBC Differential Diff Scan Differential Comment Platelet Estimate Platelet Morphology Spherocytes PT INR APTT Fibrinogen 282 Puncture Site Patient Temperature O2 Saturation ABG pH ABG pCO2 ABG pO2 ABG HCO3 ABG O2 Content ABG Base Excess ABG Methemoglobin VBG pH VBG pCO2 VBG pO2 VBG HCO3 VBG O2 Saturation VBG O2 Content VBG Base Excess VBG Carboxyhemoglobin VBG Methemoglobin Hemoglobin Carboxyhemoglobin O2 Delivery Device Liter Flow Vent Setting Inspired O2 Critical Value Sodium Potassium Chloride Carbon Dioxide Anion Gap BUN Creatinine Estimated GFR POC Glucose 298 H Random Glucose Lactic Acid Calcium Phosphorus Magnesium Total Bilirubin AST ALT Alkaline Phosphatase Ammonia Total Creatine Kinase Troponin I Total Protein Albumin Amylase Lipase Urine Color Urine Clarity Urine pH Ur Specific [place] Urine Protein Urine Glucose (UA) Urine Ketones Urine Occult Blood Urine Nitrate Urine Bilirubin Urine Urobilinogen Ur Leukocyte Esterase Urine RBC Urine WBC Ur Squamous Epith Cells Amorphous Sediment Urine Bacteria Hyaline Casts Granular Casts Urine Mucus Micro UA Comment Ur Microscopic Review Urine Culture Comments Blood Type Antibody Screen MTS Gel Crossmatch Blood Bank Comment Bld Prod Order Comment 03/12/18 10:19 WBC RBC Hgb Hct MCV MCH MCHC RDW Plt Count MPV Prelim Diff (Auto) Neut % (Auto) Lymph % (Auto) [place] % (Auto) Eos % (Auto) Baso % (Auto) Neut # (Auto) Lymph # (Auto) [place] # (Auto) Eos # (Auto) Baso # (Auto) WBC Differential Diff Scan Differential Comment Platelet Estimate Platelet Morphology Spherocytes PT INR APTT Fibrinogen Puncture Site Patient Temperature O2 Saturation ABG pH ABG pCO2 ABG pO2 ABG HCO3 ABG O2 Content ABG Base Excess ABG Methemoglobin VBG pH VBG pCO2 VBG pO2 VBG HCO3 VBG O2 Saturation VBG O2 Content VBG Base Excess VBG Carboxyhemoglobin VBG Methemoglobin Hemoglobin Carboxyhemoglobin O2 Delivery Device Liter Flow Vent Setting Inspired O2 Critical Value Sodium Potassium Chloride Carbon Dioxide Anion Gap BUN Creatinine Estimated GFR POC Glucose Random Glucose Lactic Acid Calcium Phosphorus Magnesium Total Bilirubin AST ALT Alkaline Phosphatase Ammonia Total Creatine Kinase Troponin I Total Protein Albumin Amylase Lipase Urine Color Urine Clarity Urine pH Ur Specific [place] Urine Protein Urine Glucose (UA) Urine Ketones Urine Occult Blood Urine Nitrate Urine Bilirubin Urine Urobilinogen Ur Leukocyte Esterase Urine RBC Urine WBC Ur Squamous Epith Cells Amorphous Sediment Urine Bacteria Hyaline Casts Granular Casts Urine Mucus Micro UA Comment Ur Microscopic Review Urine Culture Comments Blood Type Antibody Screen MTS Gel Crossmatch See Detail Blood Bank Comment Bld Prod Order Comment Result Diagrams: 03/12/18 14:40 03/12/18 04:03 Microbiology: Microbiology 03/10/18 09:00 Urine Culture - Final Catheterized Urine No growth in 48 hours 03/11/18 20:06 Aerobic Blood Culture - Preliminary Blood - Peripheral No growth in 1 day Anaerobic Blood Culture - Preliminary No growth in 1 day 03/11/18 20:00 Aerobic Blood Culture - Preliminary Blood - Peripheral No growth in 1 day Anaerobic Blood Culture - Preliminary No growth in 1 day 03/10/18 07:28 Aerobic Blood Culture - Preliminary Blood - Peripheral No growth in 2 days Anaerobic Blood Culture - Preliminary No growth in 2 days 03/10/18 07:22 Aerobic Blood Culture - Preliminary Blood - Peripheral No growth in 2 days Anaerobic Blood Culture - Preliminary No growth in 2 days 03/12/18 04:15 Gram Stain - Final Sputum - Oral Tracheal Aspirate 03/07/18 16:04 Gram Stain - Final Fluid - Pleural fluid Body Fluid Culture - Final No growth in 72 hours (aerobically and anaerobically) 03/07/18 17:48 Urine Culture - Final Catheterized Urine No growth in 48 hours Imaging: ITS Impressions Abdomen MRI 03/05/18 00:00 CONCLUSION: 1. 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 Celiac artery and YARI are patent. Typically, stenosis of a single mesenteric artery should not cause significant mesenteric ischemia. However, in a rare but appropriate clinical setting this may be symptomatic. 2. Diffuse atherosclerotic disease in the abdominal aorta. 3. Small bilateral pleural effusions. 4. Hepatic steatosis. Abdomen X-Ray 03/06/18 23:18 CONCLUSION: Benign-appearing abdomen. 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 Chest CTA 03/07/18 00:00 CONCLUSION: 1. Pulmonary edema and moderate bilateral pleural effusions with dependent/ compressive atelectasis. 2. No pulmonary embolus. 3. Coronary artery calcification. Abdomen/Pelvis CT 03/10/18 00:29 CONCLUSION: 1. Unchanged exam. Bilateral pleural effusions and associated atelectasis. 2. Hepatomegaly with some lobulation to the contour and small volume ascites. This raises concern for possible cirrhosis. 3. Coronary artery atherosclerotic calcifications. Chest X-Ray 03/11/18 05:00 CONCLUSION: Stable chest x-ray with bibasilar opacities characteristic of pleural effusions with associated volume loss and/or airspace consolidation. Gallbladder Ultrasound 03/12/18 00:00 CONCLUSION: 1. Cirrhotic liver with small amount of abdominal ascites. 2. Gallbladder wall thickening. Procedures: 03/05 EGD colonoscopy 03/07 thoracentesis 03/10 intubated, left heart cath, impella placed, arterial line placed, central lne placed, right IJ PA catheter placed Patient/Family Conference Present at Family Conference: and proxy Jay Family Conference Time: 15 Family Conference Location: Telephone Issues Discussed: brief telephone discussion with Jay * Palliative care role, purpose, approach * Additional psychosocial spiritual history * family understanding of the current medical problems * brief review family understanding of prognosis * brief review Current medical treatment options and benefits/burdens of those options * brief review Likely scenarios comparing ongoing aggressive care with a transition to comfort measures only * code status including benefits and burdens of CPR - family does not wish for pt to have CPR shocks or ACLS drugs * Questions answered to the best of my ability * Palliative care contact information provided Goals aggressive short of alt code intubation only. Family wants to wait for a few days to see if pt can be weaned from impella and to see if there are any improvements over all. Assessment and Plan - Disease Oriented Problem List (1) Cardiogenic shock (2) Systolic and diastolic CHF, acute (3) Hypotension (4) GIB (gastrointestinal bleeding) (5) Acute kidney injury (6) Ischemic leg - Symptom Scale (1) Pain 0-10 Scale: Unable to quantify (2) Dyspnea 0-10 Scale: Unable to quantify (3) Diarrhea 0-10 Scale: Unable to quantify Pertinent Non-Medical Issues: Psychosocial: , lives with . Has 2 sons. Unemployed. Spiritual: no roman catholic affiliation Legal: Pt not capacitated to make medical decisions. In absence of designated HCS, proxy decision making falls to , per [place] statutes. Ethical issues impacting care: none. Important Contacts: Jay Henriquez [phone] Son Luis Henriquez [phone] Prognosis: This is a 58 yo female with hx non hodgkins lymphoma in remission, etoh abuse, 40 pack years, who presented 03/02 with 4 month hx diarrhea. AFter she was admitted she developed new onset cardiomyopathy and subsequently severe cardiogenic shock. Had left heart cath and placement of impella. EF initially 30 -35%, now estimated to be 10-15%. Currently on multiple pressors and amiodarone. RLE ischemic and nonfunctional, cannot be revascularized d/t presence impella. Suffered LOVE, now LFTs are rising and it appears she has cirrhosis. Continued drops in hgb requiring mult transfusions. Unlikely she is candidate for a heart transplant. Her prognosis is poor. Code Status: Alternative Code (intubation only) Plan: - LEGAL DECISION MAKER - Pt not capacitated to make medical decisions and may not regain capacity. In the absence of a designated HCS, per [place] statutes proxy decision making falls to her . - CODE STATUS - alt code intubation only - GOALS - Goals aggressive short of alt code intubation only. Family wants to wait for a few days to see if pt can be weaned from impella and to see if there are any improvements over all. 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 EF 10-15%. on mult pressors. Intubated on vent. has PRN duonebs, jyothi symbicort. no further recs * pain - multifactorial, 2/2 mult lines, catheters, procedures. No sign pain on my eval today. On fentanyl 10ml/hr. has morphine 2mg IV q4h PRN. no further recs at this time * diarrhea - unclear etiology. had EGD colonoscopy this admission, bx benign. WBC 14.4 today, highest yet. on zosyn, flagyl. on questran. no further recs * debility - unlikely if she survives she will return to baseline. cardiac status unlikely to allow for any aggressive rehab risk for losing RLE d/t presence impella. - d/w CCM Palliative care will continue to follow during hospital course as condition evolves, to assist patient/decision-maker with understanding of medical conditions, weighing benefits/burdens of treatment options, for clarification of goals of treatment. Additionally will assist with any symptoms of palliative concern Appreciation Thank you for the opportunity to participate in the care of Amee Barboza [place].
[2018-03-12] MEDS: Insulin Detemir Inj 1,000 UNIT/10 ML Vial SQ SCH ×2 (14:00→21:37)
[2018-03-12] MEDS ORDERED: EPOPROSTENOL NEB SCH (14:00)
[2018-03-12] MEDS ORDERED: SODIUM CHLOR NEB SCH (14:00)
[2018-03-12] MEDS: fentaNYL 10 mcg/mL Premix Drip 2,500 MCG/250 ML BAG IV.SIG PRN (14:54)
[2018-03-12 15:30] LABS: Hematocrit 23.7 % (35.0-46.0); Hemoglobin 8.4 gm/dL (11.6-15.3); Mean Corpuscular HGB Conc 35.2 % (32.0-36.0); Mean Corpuscular Hemoglobin 31.4 pg (27.0-34.0); Mean Platelet Volume 8.7 fL (7.0-11.0); Platelet Count 63 th/mm3 (150-450); Red Blood Count 2.66 mil/mm3 (4.00-5.30); Red Cell Distribution Width 18.9 % (11.6-17.2); White Blood Count 10.5 th/mm3 (4.0-11.0)
[2018-03-12 15:41] LABS: Activated Partial Thrombo Time 56.6 sec (24.3-30.1); INR 1.5 Ratio; Prothrombin Time 15.5 sec (9.8-11.6)
[2018-03-12] MEDS: Multivitamin Inj 10 ML, Thiamine Inj 100 MG, Folic Acid Inj 1 MG in Sodium Chlor 0.9% I... IV.SIG SCH (17:00)
[2018-03-12 18:27] LABS: Lactate Dehydrogenase 485 U/L (84-246)
[2018-03-12 19:00] LABS: Albumin 2.2 g/dL (3.4-5.0); Calcium 6.3 mg/dL (8.5-10.1); Carbon Dioxide 32.2 meq/L (21.0-32.0); Potassium 3.9 meq/L (3.5-5.1); Total Protein 4.2 g/dL (6.4-8.2)
--- NOTE | 2018-03-12 21:22 | MB ---
cc: Zo Baldwin MD DATE: 03/12/2018 ONCOLOGY PROGRESS NOTE SUBJECTIVE: The patient is a 58-year-old lady with a history of non-Hodgkin's lymphoma, status post R-CHOP with complete response 6 cycles several years ago. She also has liver cirrhosis and active alcohol use in addition to hyperlipidemia, diabetes, acid reflux, who was initially admitted with abdominal pain, chronic diarrhea and nausea of 4 months' duration. Colonoscopy was performed and indicated colitis with biopsies taken. She had internal hemorrhoids that were clipped. She had heme positive stools and a drop in her hemoglobin, which was transfused and had been stable for several days. She was transferred to the ICU due to hypotension secondary to hypovolemia from nausea, vomiting and diarrhea. She had previously been evaluated by my colleague, Dr. Downey for evaluation of chronic anemia and pancytopenia. She was transferred to the ICU due to hypoxic respiratory failure and was subsequently intubated. At the beginning of March, she was placed on Levophed drip and on 03/10/2018 was found to be in cardiogenic shock. Left heart catheterization with clean coronaries. She is also now diffusely bleeding from site of Impella from ET tube from her rectum. She is on fentanyl and Versed for sedation and she is on milrinone, epinephrine, Levophed and vasopressin. Counts are supratherapeutic and anticoagulation is on hold. Laboratory studies are worsening. Hemoglobin is 8.4, was 5 this morning. Discussed with nurse and over the past 2 days, she has been transfused 6 units of FFP, 1 unit of cryo and 4 units of packed red blood cells with continued bleeding and intermittent in response to counts, but continued to drop down low. Platelet count remains stable and low at 63,000, white blood cell count is 10.5. Haptoglobin checked and is low at 26. Previously during this hospitalization was 126. LDH is elevated at 485, creatinine is elevated at 1.57, total bilirubin is elevated at 6.6. AST and ALT are elevated and imaging studies with evidence of cirrhosis. Ferritin is elevated and percent saturation is normal. Total iron binding capacity is low and iron level is low as well. OBJECTIVE: GENERAL: Critically ill lady, intubated with multiple pressors and IV lines. CARDIOVASCULAR: Tachycardic. RESPIRATORY: Intubated, but clear. ABDOMEN: Soft, nontender. EXTREMITIES: Right leg with Impella in place, weight on place, oozing blood. Mild edema of extremities. SKIN: Jaundice. NEUROLOGIC: Moves all 4 extremities. ASSESSMENT AND PLAN: Anemia with hemoglobin drop. Coags with prolonged PT, prolonged PTT. INR 1.5, fibrinogen 249. She has been transfused multiple units of blood, cryo and fresh frozen plasma. She continues to bleed, feel that multiple factors are contributing including cardiogenic shock, hemorrhagic shock, liver cirrhosis with decreased production of coagulation factors that is worsened with further liver injury. Haptoglobin is low; however, this is also made in the liver and cirrhosis is certainly contributing. Peripheral smear reviewed with microcytic cells, approximately 1 schistocyte per HPF overall clinical picture is that of a critically ill lady with cardiogenic shock and multiorgan failure with underlying cirrhosis, feel that overall prognosis is very poor and guarded. Palliative care team is following. Inpatient hematology service will continue to follow. Zo Baldwin MD DONAL/ct , 08:47 PM , 08:57 PM ANTOLIN
[2018-03-12] MEDS: EPOPROSTENOL NEB SCH (23:08)
[2018-03-12] MEDS: SODIUM CHLOR NEB SCH (23:08)
[2018-03-13] MEDS: Hydrocortisone/Pramoxine Foam 10 GM Can RECTAL SCH ×3 (00:51→17:00)
[2018-03-13] MEDS: Midazolam 50 MG/50 ML Inj 50 MG/50 ML BAG IV.CONT PRN ×2 (01:51→11:00)
[2018-03-13] MEDS: Vasopressin Inj 40 UNIT in Dextrose 5% in Water Inj 98 ML IV.CONT PRN ×6 (03:49→22:31)
[2018-03-13] MEDS: SODIUM CHLOR NEB SCH ×4 (04:14→13:40)
[2018-03-13] MEDS: MethylPREDNISolone Sod Succinate Inj 125 MG/2 ML Vial IV.PUSH SCH ×2 (04:14→16:19)
[2018-03-13] MEDS: EPOPROSTENOL NEB SCH ×4 (04:14→13:40)
[2018-03-13 04:17] LABS: ABG Base Excess 7.6 mmol/L (-2-2); ABG PCO2 42 mmHg (38-42); ABG PO2 140 mmHG (61-120)
[2018-03-13 05:00] LABS: Hemoglobin 7.4 gm/dL (11.6-15.3); Mean Corpuscular HGB Conc 35.8 % (32.0-36.0); Mean Corpuscular Hemoglobin 30.7 pg (27.0-34.0); Mean Corpuscular Volume 85.7 fL (80.0-100.0); Mean Platelet Volume 8.2 fL (7.0-11.0); Platelet Count 57 th/mm3 (150-450); Red Blood Count 2.43 mil/mm3 (4.00-5.30); Red Cell Distribution Width 15.9 % (11.6-17.2); White Blood Count 11.3 th/mm3 (4.0-11.0)
[2018-03-13 05:07] LABS: INR 1.6 Ratio; Prothrombin Time 15.8 sec (9.8-11.6)
[2018-03-13 05:15] LABS: Hematocrit 20.8 % (35.0-46.0)
[2018-03-13 05:29] LABS: Albumin 2.5 g/dL (3.4-5.0); Calcium 6.4 mg/dL (8.5-10.1); Carbon Dioxide 33.3 meq/L (21.0-32.0); Magnesium 1.5 mg/dL (1.5-2.5); Phosphorus 3.5 mg/dL (2.5-4.9); Total Protein 4.7 g/dL (6.4-8.2)
[2018-03-13 05:34] LABS: Potassium 2.9 meq/L (3.5-5.1)
[2018-03-13] MEDS: Potassium Chlor 40 mEq Premix 40 MEQ/100 ML PIGGYBACK IV.SIG PRN ×2 (05:41→10:52)
[2018-03-13] MEDS: Piperacil/Tazo 3.375 GM Premix 50 ML IV.SIG SCH ×3 (05:46→17:01)
[2018-03-13] MEDS: metroNIDAZOLE 500 MG Tablet PO SCH ×3 (05:47→21:07)
[2018-03-13] MEDS: Magnesium Sulfate Inj 2 GM in Sodium Chlor 0.9% Inj 96 ML IV.SIG PRN (07:43)
--- NOTE | 2018-03-13 07:46 | P.PNVS ---
Subjective Subjective/Hospital Course: Pt remains guarded with significant pressor req and mechanical inotropic support via R groin Impella R leg worse continues to be mottled and no motor function palliative care consulted last night given multi organ failure Objective Vital Signs / I&O: Vital Signs 03/12/18 08:00 03/12/18 08:20 03/12/18 09:30 Temperature 98.6 F Pulse Rate 104 H Respiratory Rate 16 Blood Pressure 77/58 L Pulse Oximetry 99 03/12/18 09:59 03/12/18 10:35 03/12/18 11:00 Temperature 100.2 F H 100.4 F H 100.8 F H Pulse Rate 116 H 109 H 108 H Respiratory Rate 20 17 Blood Pressure 82/62 L 113/79 117/80 Pulse Oximetry 99 98 03/12/18 11:05 03/12/18 11:23 03/12/18 11:26 Temperature 100.8 F H 100.2 F H Pulse Rate 102 H 110 H Respiratory Rate 15 16 12 Blood Pressure 110/76 91/66 L Pulse Oximetry 97 03/12/18 11:29 03/12/18 12:00 03/12/18 12:30 Temperature 100.9 F H 101.6 F H Pulse Rate 97 H 95 H 95 H Respiratory Rate 16 19 Blood Pressure 120/80 95/70 L 119/85 Pulse Oximetry 03/12/18 13:10 03/12/18 13:44 03/12/18 15:00 Temperature 102 F H 101.2 F H Pulse Rate 98 H 96 H Respiratory Rate 24 18 18 Blood Pressure 116/83 94/72 L Pulse Oximetry 92 L 94 L 94 L 03/12/18 16:00 03/12/18 16:30 03/12/18 17:30 Temperature 98.6 F Pulse Rate 95 H Respiratory Rate 17 Blood Pressure 81/60 L Pulse Oximetry 97 03/12/18 19:00 03/12/18 19:20 03/12/18 20:00 Temperature 99.4 F Pulse Rate 97 H 96 H 102 H Respiratory Rate 13 Blood Pressure 83/61 L 80/60 L Pulse Oximetry 97 03/12/18 21:30 03/12/18 22:45 03/12/18 22:55 Temperature 99.8 F H Pulse Rate 100 H Respiratory Rate 13 15 15 Blood Pressure 100/71 Pulse Oximetry 96 97 03/12/18 23:00 03/12/18 23:13 03/13/18 00:10 Temperature 99.8 F H Pulse Rate 102 H 98 H 96 H Respiratory Rate 16 Blood Pressure 107/78 78/58 L Pulse Oximetry 96 03/13/18 00:26 03/13/18 01:00 03/13/18 01:31 Temperature 99.7 F H 99.2 F Pulse Rate 97 H 97 H Respiratory Rate 16 15 14 Blood Pressure 90/65 L 107/72 Pulse Oximetry 95 95 03/13/18 01:47 03/13/18 03:00 03/13/18 03:07 Temperature 99.1 F 98.8 F Pulse Rate 91 H 85 86 Respiratory Rate 12 14 Blood Pressure 106/71 114/78 Pulse Oximetry 97 95 03/13/18 04:00 03/13/18 04:33 Temperature Pulse Rate 96 H Respiratory Rate 13 Blood Pressure 114/82 Pulse Oximetry 96 Intake & Output 03/12/18 03/13/18 03/13/18 18:59 06:59 18:59 Intake Total 4595 / 4595 3408 / 3408 Output Total 5575 / 5575 1420 / 1420 Balance -980 / -980 1987 / 1987 Weight 70.5 kg Intake: IV 2401 / 2401 1719 / 1719 Cordarone Inj 450 MG In D5W Inj 250 / 250 293 / 293 241 ML @ 1 MG/MIN 33.33 mls/hr IV.CONT TITRATE PRN Rx#: [id number] EPINEPHrine (1:1000) Inj 4 MG 250 / 250 In D5W Inj 246 ML @ 4 MCG/MIN 15 mls/hr IV.CONT TITRATE PRN Rx#:[id number] Versed Inj 50 mg In 50 ml @ 2 100 / 100 50 / 50 MG/HR 2 mls/hr IV.CONT TITRATE PRN Rx#:[id number] Primacor Inj 20 MG In NS Inj 80 100 / 100 ML @ 0.375 MCG/KG/MIN 6.86 mls /hr IV.CONT .[id number] [facility] Rx#: [id number] Pitressin Inj 40 UNIT In D5W 276 / 276 Inj 98 ML @ 0.01 UNITS/MIN 1.5 mls/hr IV.CONT TITRATE PRN Rx#: [id number] MVI-12 Inj 10 ML Thiamine Inj 500 / 500 100 MG Folvite Inj 1 MG In NS Inj 500 ML @ 125 mls/hr IV.SIG Q24H [facility] Rx#:[id number] Levophed-Dextrose 4 mg/250 ml 750 / 750 500 / 500 Drip 4 mg In 250 ml @ 2 MCG/MIN 7.5 mls/hr IV.SIG TITRATE PRN Rx#:[id number] Vitamin K Inj 10 MG In D5W Inj 51 / 51 50 ML @ 102 mls/hr IV.SIG ONCE ONE Rx#:[id number] Zosyn 3.375 GM Premix 50 ML @ 100 / 100 100 / 100 100 mls/hr IV.SIG Q6H [facility] Rx#: [id number] KCl 40 mEq Premix Inj 40 meq In 200 / 200 100 ml @ 25 mls/hr IV.SIG Q2H PRN Rx#:[id number] Vancomycin Inj 1,000 MG In NS 250 / 250 Inj 250 ML @ 250 mls/hr IV.SIG ONCE ONE Rx#:[id number] fentaNYL 10 mcg/mL Premix Drip 250 / 250 2,500 mcg In 250 ml @ 50 MCG/HR 5 mls/hr IV.SIG TITRATE PRN Rx #:[id number] Flolan (30,000 ng/mL) Neb 62.5 100 / 100 ML In NS Inj 37.5 ML @ 8 mls/hr NEB Q8H [facility] Rx#:[id number] Tube Irrigant 520 / 520 100 / 100 Other 250 / 250 500 / 500 Rbc As-3 Leukoreduced Unit 500 / 500 [id number] Intake (Blood Product) Amt 1424 / 1424 1089 / 1089 Plasma Thawed 5 Day Acda Unit 0 / 0 220 / 220 [id number] Plasma Thawed 5 Day Acda Unit 224 / 224 [id number] Plasma Thawed 5 Day Cp2d Unit 280 / 280 [id number] Plt Pheresis C Leukoreduced 189 / 189 Unit [id number] Rbc As-3 Leukoreduced Unit 400 / 400 [id number] Rbc As-3 Leukoreduced Unit 400 / 400 [id number] Rbc As-3 Leukoreduced Unit 400 / 400 [id number] Rbc As-3 Leukoreduced Unit 400 / 400 [id number] Output: Urine Amount (Catheter) 5575 / 5521 1420 / 1420 Indwelling Urethral Catheter 5534 / 5583 1420 / 1421 Other: Other Intake Source Saline Solution Rbc As-3 Leukoreduced Unit Saline Solution [id number] Rbc As-3 Leukoreduced Unit Saline Solution [id number] Rbc As-3 Leukoreduced Unit Saline Solution [id number] Rbc As-3 Leukoreduced Unit Saline Solution [id number] Date of Last Bowel Movement 03/12/18 # Incontinent Bowel Movements 2 1 Physical Exam: R LE cool, marbled, no evidence of infection Laboratory Results - last 24 hr 03/12/18 03/12/18 03/12/18 08:52 08:56 09:15 WBC RBC Hgb Hct MCV MCH MCHC RDW Plt Count MPV Haptoglobin PT INR APTT Fibrinogen Puncture Site Patient Temperature O2 Saturation ABG pH ABG pCO2 ABG pO2 ABG HCO3 ABG O2 Content ABG Base Excess ABG Methemoglobin Hemoglobin Carboxyhemoglobin O2 Delivery Device Vent Setting Inspired O2 Critical Value Sodium Potassium Chloride Carbon Dioxide Anion Gap BUN Creatinine Estimated GFR POC Glucose 298 H Random Glucose Lactic Acid Calcium Prot Corrected Calcium Phosphorus Magnesium Total Bilirubin AST ALT Alkaline Phosphatase Lactate Dehydrogenase Total Protein Albumin MTS Gel Crossmatch See Detail Blood Bank Comment Bld Prod Order Comment 03/12/18 03/12/18 03/12/18 09:26 09:26 10:19 WBC 14.0 H D RBC 1.38 L Hgb 5.0 L* D Hct 13.8 L* MCV 100.2 H D MCH 36.2 H MCHC 36.2 H RDW 18.6 H Plt Count 94 L D MPV 8.9 Haptoglobin PT INR APTT Fibrinogen 282 Puncture Site Patient Temperature O2 Saturation ABG pH ABG pCO2 ABG pO2 ABG HCO3 ABG O2 Content ABG Base Excess ABG Methemoglobin Hemoglobin Carboxyhemoglobin O2 Delivery Device Vent Setting Inspired O2 Critical Value Sodium Potassium Chloride Carbon Dioxide Anion Gap BUN Creatinine Estimated GFR POC Glucose Random Glucose Lactic Acid Calcium Prot Corrected Calcium Phosphorus Magnesium Total Bilirubin AST ALT Alkaline Phosphatase Lactate Dehydrogenase Total Protein Albumin MTS Gel Crossmatch See Detail Blood Bank Comment Bld Prod Order Comment 03/12/18 03/12/18 03/12/18 12:07 14:40 14:40 WBC 10.5 RBC 2.66 L Hgb 8.4 L D Hct 23.7 L MCV 89.0 D MCH 31.4 MCHC 35.2 RDW 18.9 H Plt Count 63 L D MPV 8.7 Haptoglobin PT 15.5 H INR 1.5 APTT 56.6 H Fibrinogen 249 Puncture Site Patient Temperature O2 Saturation ABG pH ABG pCO2 ABG pO2 ABG HCO3 ABG O2 Content ABG Base Excess ABG Methemoglobin Hemoglobin Carboxyhemoglobin O2 Delivery Device Vent Setting Inspired O2 Critical Value Sodium Potassium Chloride Carbon Dioxide Anion Gap BUN Creatinine Estimated GFR POC Glucose 292 H Random Glucose Lactic Acid Calcium Prot Corrected Calcium Phosphorus Magnesium Total Bilirubin AST ALT Alkaline Phosphatase Lactate Dehydrogenase Total Protein Albumin Snehta Gel Crossubitustch Blood Bank Comment Bld Prod Order Comment 03/12/18 03/12/18 03/12/18 16:00 16:00 16:50 WBC RBC Hgb Hct MCV MCH MCHC RDW Plt Count MPV Haptoglobin PT INR APTT Fibrinogen Puncture Site Patient Temperature O2 Saturation ABG pH ABG pCO2 ABG pO2 ABG HCO3 ABG O2 Content ABG Base Excess ABG Methemoglobin Hemoglobin Carboxyhemoglobin O2 Delivery Device Vent Setting Inspired O2 Critical Value Sodium 133 L Potassium 3.9 Chloride 91 L Carbon Dioxide 32.2 H Anion Gap 10 BUN 31 H Creatinine 1.57 H Estimated GFR 34 L POC Glucose Random Glucose 253 H Lactic Acid Calcium 6.3 L* D Prot Corrected Calcium 7.8 L Phosphorus Magnesium Total Bilirubin 6.6 H AST 227 H ALT 69 H Alkaline Phosphatase 56 Lactate Dehydrogenase Total Protein 4.2 L D Albumin 2.2 L D Snehta Gel Skulpttch Blood Bank Comment Bld Prod Order Comment 03/12/18 03/12/18 03/12/18 16:50 17:13 20:53 WBC RBC Hgb Hct MCV MCH MCHC RDW Plt Count MPV Haptoglobin 26 L PT INR APTT Fibrinogen Puncture Site Patient Temperature O2 Saturation ABG pH ABG pCO2 ABG pO2 ABG HCO3 ABG O2 Content ABG Base Excess ABG Methemoglobin Hemoglobin Carboxyhemoglobin O2 Delivery Device Vent Setting Inspired O2 Critical Value Sodium Potassium Chloride Carbon Dioxide Anion Gap BUN Creatinine Estimated GFR POC Glucose 297 H 310 H Random Glucose Lactic Acid Calcium Prot Corrected Calcium Phosphorus Magnesium Total Bilirubin AST ALT Alkaline Phosphatase Lactate Dehydrogenase 485 H Total Protein Albumin Snehta Gel Crossmatch Blood Bank Comment Bld Prod Order Comment 03/12/18 03/13/18 03/13/18 22:44 04:06 04:06 WBC 11.3 H RBC 2.43 L Hgb 7.4 L Hct 20.8 L* MCV 85.7 MCH 30.7 MCHC 35.8 RDW 15.9 D Plt Count 57 L MPV 8.2 Haptoglobin PT 15.8 H INR 1.6 APTT Fibrinogen Puncture Site Patient Temperature O2 Saturation ABG pH ABG pCO2 ABG pO2 ABG HCO3 ABG O2 Content ABG Base Excess ABG Methemoglobin Hemoglobin Carboxyhemoglobin O2 Delivery Device Vent Setting Inspired O2 Critical Value Sodium Potassium Chloride Carbon Dioxide Anion Gap BUN Creatinine Estimated GFR POC Glucose Random Glucose Lactic Acid 3.5 H Calcium Prot Corrected Calcium Phosphorus Magnesium Total Bilirubin AST ALT Alkaline Phosphatase Lactate Dehydrogenase Total Protein Albumin MTS Gel Crossmatch Blood Bank Comment Bld Prod Order Comment 03/13/18 03/13/18 03/13/18 04:06 04:06 04:10 WBC RBC Hgb Hct MCV MCH MCHC RDW Plt Count MPV Haptoglobin PT INR APTT 57.6 H Fibrinogen Puncture Site Art line Patient Temperature 98.6 O2 Saturation 96 ABG pH 7.49 H ABG pCO2 42 ABG pO2 140 H ABG HCO3 31 H ABG O2 Content 11.1 L ABG Base Excess 7.6 H ABG Methemoglobin 1.7 Hemoglobin 8.0 L Carboxyhemoglobin 1.5 O2 Delivery Device Ventilator Vent Setting Prvc/ac Inspired O2 50 Critical Value No Sodium 133 L Potassium 2.9 L* D Chloride 87 L Carbon Dioxide 33.3 H Anion Gap 13 BUN 32 H Creatinine 1.58 H Estimated GFR 34 L POC Glucose Random Glucose 248 H Lactic Acid Calcium 6.4 L* Prot Corrected Calcium 7.6 L Phosphorus 3.5 Magnesium 1.5 D Total Bilirubin 6.9 H AST 193 H ALT 71 H Alkaline Phosphatase 62 Lactate Dehydrogenase Total Protein 4.7 L Albumin 2.5 L MTS Gel Crossmatch Blood Bank Comment Bld Prod Order Comment Microbiology 03/11/18 15:55 Urine Culture - Preliminary Catheterized Urine No growth. 03/10/18 09:00 Urine Culture - Final Catheterized Urine No growth in 48 hours 03/11/18 20:06 Aerobic Blood Culture - Preliminary Blood - Peripheral No growth in 1 day Anaerobic Blood Culture - Preliminary No growth in 1 day 03/11/18 20:00 Aerobic Blood Culture - Preliminary Blood - Peripheral No growth in 1 day Anaerobic Blood Culture - Preliminary No growth in 1 day 03/10/18 07:28 Aerobic Blood Culture - Preliminary Blood - Peripheral No growth in 2 days Anaerobic Blood Culture - Preliminary No growth in 2 days 03/10/18 07:22 Aerobic Blood Culture - Preliminary Blood - Peripheral No growth in 2 days Anaerobic Blood Culture - Preliminary No growth in 2 days 03/12/18 04:15 Gram Stain - Final Sputum - Oral Tracheal Aspirate Impressions Gallbladder Ultrasound 03/12/18 00:00 CONCLUSION: 1. Cirrhotic liver with small amount of abdominal ascites. 2. Gallbladder wall thickening. Assessment and Plan - Assessment (1) Cardiogenic shock Code(s): R57.0 - Cardiogenic shock Status: Acute - Plan 58 yo female with cardiogenic shock and R groin Impella mechanical support device. R LE profoundly ischemic 1. Continue to wean impella, drips. If she survives to have mechanical assist device removed, there is a high likelihood of a major amputation. 2. Will follow. Philippe Arellano MD FACS RPVI roguer [facility] - Heart [facility] V[facility] at [facility] [phone]
[2018-03-13] MEDS ORDERED: Potassium Chlor 40 mEq Premix 40 MEQ/100 ML PIGGYBACK IV.SIG ONE (08:30)
[2018-03-13] MEDS ORDERED: Sodium Chlor 0.9% Inj 250 ML IV.SIG ONE (08:30)
[2018-03-13] MEDS: Milrinone Inj 20 MG in Sodium Chlor 0.9% Inj 80 ML IV.CONT SCH (08:32)
[2018-03-13] MEDS: Budesonide-Formoterol 160/4.5 MCG 6 GM Inhaler INH SCH ×2 (08:37→21:06)
--- NOTE | 2018-03-13 08:38 | P.PNCC ---
Subjective Subjective Remarks/Hospital Course: 58-year-old female with known history of hyperlipidemia, diabetes, gastroesophageal reflux, history of lymphoma who presented to the hospital initially because of abdominal pain, chronic diarrhea, nausea vomiting for 4 months. Patient is being followed by Dr. Thomas in the outpatient setting for the chronic diarrhea. She underwent endoscopy on October this year there was a stricture found and was dilated at that time. Colonoscopy was scheduled for next Sunday however due to the patient's increased nausea vomiting diarrhea she came to the emergency department for evaluation. Patient had significant workup done in the hospital to include full stool evaluation for any infectious process which was unremarkable. CT scan did indicate signs of colitis in the proximal half of the transverse colon with submucosal edema. Patient was admitted the hospital and GI consultation was requested and performed. Patient did undergo colonoscopy which did indicate colitis, biopsies were taken. Patient did have internal hemorrhoids +1 external hemorrhoid that needed to be clipped. The patient's stay her hemoglobin was monitored and her hemoglobin did drop down to 7.8 and given that she had heme positive stools she is transfused 1 unit of packed red blood cells which her hemoglobin went back up to 10.1. Patient's hemoglobin has maintained stability since then. Patient was in the ICU secondary to continued hypotension secondary to hypovolemia from her nausea, vomiting, diarrhea. Patient was on electrolyte replacement protocol due to electrolyte loss from diarrhea. Patient was started on Questran and Lomotil with significant improvement. Patient was given multiple liters of fluid boluses as well as albumin infusions with improvement of her blood pressure. Patient does have history of chronic anemia which appears to be macrocytic. Hematology was consulted for further recommendations in reference to the patient's history of lymphoma, chronic anemia, pancytopenia. Patient was actually doing well and was transferred to the medical floor. However last evening the patient had acute onset of shortness of breath. There is no indication chest pain, abdominal pain, nausea, vomiting. Patient had significant workup performed which did indicate a acute troponin elevation, significant elevation of BNP. Chest x-ray did showed new findings of pulmonary edema, pulmonary angiogram was performed which did show significant pulmonary edema with bilateral pleural effusions. Patient was transferred back to the ICU due to acute hypoxic respiratory failure. Patient was requiring 6 L nasal cannula maintain O2 saturations greater than 92%. Upon review of the EKGs it does appears patient had acute changes with Q-wave presentation in the inferior leads. Due to the patient's respiratory failure, significant hypotension, acute myocardial infarction, acute cardiomyopathy, acute congestive heart failure critical care consultation was requested for management in the ICU. SUBJECTIVE: 03/09: Currently on norepinephrine drip at 8 mcg/min. Complaining of being slightly short of breath. Current x-ray revealed tiny pleural effusions. Abdominal pain control. 03/10: florid cardiogenic shock. lactate 13. altered. acutely agitated. going into respiratory failure. emergently intubated (see procedure note for details) . scvo2 from central line of 12%. transferred to CVICU. placed arterial, central lines and PA catheter. CI 1.6. 4mg bumex iv x 1 with bumex drip at 2mg/ hr. started milrinone and epinephrine drips. no adequate uop. Dr. Hewitt came in and emergently LHC: clean coronaries. placed impella. uop began to picker after impella. right leg without dopplerable signals after impella, but cap refill present (sluggish, but present). patient still follows commands. lactate peaked at 19, now downtrending. fio2 90% on peep 10. pulmonary edema. 03/11: Condition remains critical with guarded prognosis. Remains in profound shock. Now cardiogenic hypovolemic, hemoglobin 5.4-3 unit PRBC stat ordered, with calcium replacement. Currently remains on the fentanyl and Versed for sedation. Also on epinephrine 3 mcg/min, milrinone 0.375 mcg/kg/min, Levophed 20 mcg/min and vasopressin 0.04 international units. Heparin held due to supratherapeutic INR. Lactate continues to trend down last 4.4. Mixed venous gases pending at this time. Impella R groin, P level 6, Flow 2.9 L/min, sig 88/ 59. UO over last 12 hours is 4L. 03/12: Patient still remains extremely critical and in profound shock currently cardiogenic and hemorrhagic shock. Hemoglobin today 5 severely coagulopathic getting blood and blood products. Liver ultrasound confirms liver cirrhosis. Currently on Levophed, milrinone, vasopressin, and amiodarone infusions. Impala reading 106/75, 3.0 L/min. PAC CI 2.6, SVR decreased 979. CVP 10. Bedside echo confirms impaired left pigtail positioning towards apex, LVEF appears 20% also evidence of RV dysfunction. Bilirubin is 8.3 today INR 1.5 PTT 38.2. Unable to anticoagulate due to life-threatening hemorrhage from right groin impeller site and lower GI bleed. Patient's right lower extremity is mottled pulseless nonfunctional now. Prognosis is extremely guarded. I discussed with options. He had given me history that patient drinks about 8 shots of vodka daily and smokes 2 packs of cigarettes per day. On further discussion he stated to me that he cannot by any means see her by going on an LVAD or getting a heart transplant given her habits. He refuses a transfer to a heart transplant/LVAD center after our discussion 03/12: Remains critical still requiring inotropic pressor and Impella support. Performance level was increased to 8 at 4 AM today currently flow 3.4 L/min. Blood pressure 119/81. Urine output 2.5 L/min creatinine is 1.6. Remains grossly fluid positive will give 1 dose of Lasix 20 mg 1. Hemoglobin is 7.4 platelets 57 INR 1.6. Blood and blood product transfusions ordered. Right leg remains without pulse mottled. Palliative care involved currently alternate code. Levophed currently decreased to 6 mcg/min but remains on milrinone and vasopressin and amiodarone gtt. unable to start tube feeding due to GI bleed and high pressor requirement. There is a slight decrease in the right groin bleeding, but patient continues to have lower GI bleed Objective Vital Signs / I&O: Vital Signs 03/12/18 08:20 03/12/18 09:30 03/12/18 09:59 Temperature 98.6 F 100.2 F H Pulse Rate 116 H Respiratory Rate 16 Blood Pressure 82/62 L Pulse Oximetry 99 99 03/12/18 10:35 03/12/18 11:00 03/12/18 11:05 Temperature 100.4 F H 100.8 F H 100.8 F H Pulse Rate 109 H 108 H 102 H Respiratory Rate 20 17 15 Blood Pressure 113/79 117/80 110/76 Pulse Oximetry 98 03/12/18 11:23 03/12/18 11:26 03/12/18 11:29 Temperature 100.2 F H 100.9 F H Pulse Rate 110 H 97 H Respiratory Rate 16 12 16 Blood Pressure 91/66 L 120/80 Pulse Oximetry 97 03/12/18 12:00 03/12/18 12:30 03/12/18 13:10 Temperature 101.6 F H Pulse Rate 95 H 95 H Respiratory Rate 19 24 Blood Pressure 95/70 L 119/85 Pulse Oximetry 92 L 03/12/18 13:44 03/12/18 15:00 03/12/18 16:00 Temperature 102 F H 101.2 F H Pulse Rate 98 H 96 H 95 H Respiratory Rate 18 18 Blood Pressure 116/83 94/72 L 81/60 L Pulse Oximetry 94 L 94 L 03/12/18 16:30 03/12/18 17:30 03/12/18 19:00 Temperature 98.6 F Pulse Rate 97 H Respiratory Rate 17 Blood Pressure Pulse Oximetry 97 03/12/18 19:20 03/12/18 20:00 03/12/18 21:30 Temperature 99.4 F Pulse Rate 96 H 102 H Respiratory Rate 13 13 Blood Pressure 83/61 L 80/60 L Pulse Oximetry 97 96 03/12/18 22:45 03/12/18 22:55 03/12/18 23:00 Temperature 99.8 F H Pulse Rate 100 H 102 H Respiratory Rate 15 15 Blood Pressure 100/71 Pulse Oximetry 97 03/12/18 23:13 03/13/18 00:10 03/13/18 00:26 Temperature 99.8 F H 99.7 F H Pulse Rate 98 H 96 H 97 H Respiratory Rate 16 16 Blood Pressure 107/78 78/58 L 90/65 L Pulse Oximetry 96 95 03/13/18 01:00 03/13/18 01:31 03/13/18 01:47 Temperature 99.2 F 99.1 F Pulse Rate 97 H 91 H Respiratory Rate 15 14 12 Blood Pressure 107/72 106/71 Pulse Oximetry 95 97 03/13/18 03:00 03/13/18 03:07 03/13/18 04:00 Temperature 98.8 F Pulse Rate 85 86 Respiratory Rate 14 13 Blood Pressure 114/78 Pulse Oximetry 95 96 03/13/18 04:33 Temperature Pulse Rate 96 H Respiratory Rate Blood Pressure 114/82 Pulse Oximetry Intake & Output 03/12/18 03/13/18 03/13/18 18:59 06:59 18:59 Intake Total 4595 / 4595 3408 / 3408 Output Total 5575 / 5575 1420 / 1420 Balance -980 / -980 1987 / 1987 Weight 70.5 kg Intake: IV 2401 / 2401 1719 / 1719 Cordarone Inj 450 MG In D5W Inj 250 / 250 293 / 293 241 ML @ 1 MG/MIN 33.33 mls/hr IV.CONT TITRATE PRN Rx#: [id number] EPINEPHrine (1:1000) Inj 4 MG 250 / 250 In D5W Inj 246 ML @ 4 MCG/MIN 15 mls/hr IV.CONT TITRATE PRN Rx#:[id number] Versed Inj 50 mg In 50 ml @ 2 100 / 100 50 / 50 MG/HR 2 mls/hr IV.CONT TITRATE PRN Rx#:[id number] Primacor Inj 20 MG In NS Inj 80 100 / 100 ML @ 0.375 MCG/KG/MIN 6.86 mls /hr IV.CONT .[id number] [facility]ENDA Rx#: [id number] Pitressin Inj 40 UNIT In D5W 276 / 276 Inj 98 ML @ 0.01 UNITS/MIN 1.5 mls/hr IV.CONT TITRATE PRN Rx#: [id number] MVI-12 Inj 10 ML Thiamine Inj 500 / 500 100 MG Folvite Inj 1 MG In NS Inj 500 ML @ 125 mls/hr IV.SIG Q24H [facility] Rx#:[id number] Levophed-Dextrose 4 mg/250 ml 750 / 750 500 / 500 Drip 4 mg In 250 ml @ 2 MCG/MIN 7.5 mls/hr IV.SIG TITRATE PRN Rx#:[id number] Vitamin K Inj 10 MG In D5W Inj 51 / 51 50 ML @ 102 mls/hr IV.SIG ONCE ONE Rx#:[id number] Zosyn 3.375 GM Premix 50 ML @ 100 / 100 100 / 100 100 mls/hr IV.SIG Q6H [facility] Rx#: [id number] KCl 40 mEq Premix Inj 40 meq In 200 / 200 100 ml @ 25 mls/hr IV.SIG Q2H PRN Rx#:[id number] Vancomycin Inj 1,000 MG In NS 250 / 250 Inj 250 ML @ 250 mls/hr IV.SIG ONCE ONE Rx#:[id number] fentaNYL 10 mcg/mL Premix Drip 250 / 250 2,500 mcg In 250 ml @ 50 MCG/HR 5 mls/hr IV.SIG TITRATE PRN Rx #:[id number] Flolan (30,000 ng/mL) Neb 62.5 100 / 100 ML In NS Inj 37.5 ML @ 8 mls/hr NEB Q8H [facility] Rx#:[id number] Tube Irrigant 520 / 520 100 / 100 Other 250 / 250 500 / 500 Rbc As-3 Leukoreduced Unit 500 / 500 [id number] Intake (Blood Product) Amt 1424 / 1424 1089 / 1089 Plasma Thawed 5 Day Acda Unit 0 / 0 220 / 220 [id number] Plasma Thawed 5 Day Acda Unit 224 / 224 [id number] Plasma Thawed 5 Day Cp2d Unit 280 / 280 [id number] Plt Pheresis C Leukoreduced 189 / 189 Unit [id number] Rbc As-3 Leukoreduced Unit 400 / 400 [id number] Rbc As-3 Leukoreduced Unit 400 / 400 [id number] Rbc As-3 Leukoreduced Unit 400 / 400 [id number] Rbc As-3 Leukoreduced Unit 400 / 400 [id number] Output: Urine Amount (Catheter) 5575 / 5575 1420 / 1420 Indwelling Urethral Catheter 5575 / 5575 1420 / 1420 Other: Other Intake Source Saline Solution Rbc As-3 Leukoreduced Unit Saline Solution [id number] Rbc As-3 Leukoreduced Unit Saline Solution [id number] Rbc As-3 Leukoreduced Unit Saline Solution [id number] Rbc As-3 Leukoreduced Unit Saline Solution [id number] Date of Last Bowel Movement 03/12/18 # Incontinent Bowel Movements 2 1 Result Diagrams: 03/13/18 04:06 03/13/18 04:06 Objective Remarks: GENERAL: 58-year-old female in bed intubated sedated critically ill. SKIN: cool, poorly perfused, mottled. Tattoo right lower extremely HEAD: Atraumatic. Normocephalic. EYES: Pupils equal and round. No scleral icterus. No injection or drainage. ENT: No nasal bleeding or discharge. Mucous membranes pink and moist. Orotracheally intubated NECK: Trachea midline. significant JVD+. Right IJ PA catheter in place CARDIOVASCULAR: Hypotensive on multiple pressures. PAC in place with CO 4.6, CI 2.8, CVP 10, SVR 1155. On multiple pressors. Impella: 3.4L/min, 119/81 RESPIRATORY: Air entry equal bilaterally on PRVC mode. Basilar crackles diminished air entry GASTROINTESTINAL: Abdomen soft, non-tender, distended. Hepatic and splenic margins not palpable. There is obvious lower GI bleed MUSCULOSKELETAL: Extremities mottled. 1+ edema. No dopplerable pulse right lower extremity, cold clammy, nonfunctional now, only minimal movement. Impella insertion site with continued bleeding. Remains on Flolan 30 ng/kg/min NEUROLOGICAL: RASS -2. Moving all extremities on sedation lightening except RLE with minimal movements. No focal deficits Assessment and Plan - Assessment and Plan Plan: Assessment: 58yF with severe acute cardiogenic shock, now with hemorrhagic shock also with need for mechanical support. Etiology could be alcohol induced cardiomyopathy (6-8 shots of vodka daily) versus Adriamycin induced cardiomyopathy, vs new viral myocarditis, given colitis as her presenting symptom. Continue mechanical support with Impella CP. US shows liver cirrhosis and patient has significant bleeding from right groin and lower GI. Not a candidate for LVAD to destination or to recovery, definitely not a cardiac transplant candidate. Palliative care is following now. Her chance of survival is minimal with multi organ failure NEUROLOGY/PSYCH: Acute metabolic encephalopathy Alcohol dependence Continue monitor neurological function, frequent neuro checks Versed and fentanyl for sedation and vent synchrony Morphine sulfate 2 mg IV every 4 hours as needed for pain encephalopathy secondary to cardiogenic shock. Supplement multivitamin and thiamine PULMONOLOGY Acute hypoxic respiratory failure secondary to pulmonary edema, pleural effusion L>R Pleural effusion Intubated 03/10 for acute decline. Status post thoracentesis by Dr. Nate Thompson 03/07 Albuterol/ipratropium aerosols every 6 hours and albuterol aerosols every 2 hours as needed vent bundle, hob elevated no weaning of mechanical ventilation until shock improves Flolan wean Per protocol, currently 30 ng/kg/min CARDIOLOGY Cardiogenic shock, complicated by hemorrhagic shock now Acute systolic heart failure exacerbation Non-ischemic Cardiomyopathy (alcohol induced vs Adriamycin induced vs viral Elevated troponin Elevated BNP Ischemic right foot s/p Impella CP placement 03/10. Performance level increased to 8 today a.m. with , Flow 3.4 L/ min, BP 119/81, UO >2.5L in 24 hours, lactate 3.1 yesterday milrinone at 0.375 mcg/kg/min, levophed 6 mcg/min, vasopressin 0.04 Amiodarone started for A. fib with RVR, currently sinus rhythm s/p LHC 03/10 with clean coronaries. EF now 15-20%. moderate RV dysfunction 2D Echo EF 30-35% 03/07. Previous echo prior to CHOP regimen showed normal ejection fraction Cardiomyopathy may be secondary to Adriamycin toxicity vs sev alcohol abuse US shows liver cirrhosis and patient has significant bleeding from right groin and lower GI. Not a candidate for LVAD to destination or to recovery, definitely not a cardiac transplant candidate. Active alcohol dependent Troponin have plateaued with troponin at 0.21 PA catheter, CI 2.8, SVRI 1155 Trend lactates. watch cvp carefully: RV failure may ensue from LVAD, last CVP 10 Avoid over-diurese as this may cause suck-down of LVAD, currently on 40% fio2 with pulmonary edema. Give 1 dose of Lasix 20 mg IV heparin drip DCd due to supratherapeutic PTT, and severe GI bleed and right groin hematoma No pulse right lower extremity, unable to salvage the right limb because removal of Impella can be fatal at this time Dr. spence following GASTROENTEROLOGY Colitis, ? ischemic GI bleed, active External hemorrhoid Shock liver Liver cirrhosis NPO with OGT. GI is following the patient and has undergone upper and lower endoscopies which does indicate colitis, distal esophagitis, external hemorrhoids. Pathology negative. Patient is too unstable for repeat EGD colonoscopy MRA of the abdomen was performed which did show 50% to 55% stenosis of the SMA daily cmp Liver ultrasound shows liver cirrhosis RENAL Acute kidney injury Secondary to cardiogenic shock Continue monitor renal functions, bicarb, anion gap Urine output remains excellent creatinine 1.77 INFECTIOUS DISEASE Severe sepsis Repeated cultures 03/11/2018, negative to date Continue Zosyn, single dose of vancomycin given Colitis, appears to be not infective. Continue p.o. Flagyl C. difficile, enteric pathogens, Giardia, stool for WBCs all appear to be negative Urine culture shows 50 - 100,000 of mixed [place] probable contaminants ENDOCRINOLOGY Diabetes mellitus Elevated TSH Continue Accu-Cheks with sliding scale insulin/aspart. On the metformin thousand grams twice daily at home TSH 6.89. Low free T3. Normal free T4. On levothyroxine 25 mcg daily. Continue IV Solu-Medrol 60 mg 12 hours Continue sliding scale, added Levemir 10 every 12 HEMATOLOGY Anemia requiring transfusion with hemorrhagic shock Coagulopathy secondary to shock liver, liver cirrhosis History of large B cell lymphoma macrocytic anemia Thrombocytopenia GI bleed with bleeding external hemorrhoid Status post multiple blood and blood product transfusions Today hemoglobin is 7.4 transfuse 1 units PRBC stat with calcium replacement Hematology is following the patient Source of blood loss is right groin impella site and lower GI bleed Heparin DCd for supratherapeutic PTT, active GI bleed and coagulopathy PROPHYLAXIS DVT prevention with sequential compression devices, on IV heparin cannot be used GI protection with Protonix LINES Mediport has been accessed, right IJ PA catheter in place CODE STATUS Full code This patient remains critically ill with one or more organ systems which are or may become a threat to life. I have spent in excess of 77 minutes discontinuously in the care and management of this patient. This time is exclusive of procedures, and includes, but is not limited to, evaluation of the patient, review of the medical record, discussions with family, consultants, nursing staff, or respiratory therapy, and documentation in the medical record. Bedside for the management of her refractory cardiogenic shock.
[2018-03-13] MEDS: Pantoprazole Inj 40 MG Vial IV.PUSH SCH (08:41)
[2018-03-13] MEDS: Insulin NovoLOG Aspart Correctional Sugar Inj SQ SCH ×4 (08:42→21:07)
--- NOTE | 2018-03-13 08:56 | P.PNCA ---
Subjective Interval history: Condition overall unchanged. Physical Exam Vital signs: Vital Signs 03/12/18 09:30 03/12/18 09:59 03/12/18 10:35 Temperature 98.6 F 100.2 F H 100.4 F H Pulse Rate 116 H 109 H Respiratory Rate 20 Blood Pressure 82/62 L 113/79 Pulse Oximetry 99 03/12/18 11:00 03/12/18 11:05 03/12/18 11:23 Temperature 100.8 F H 100.8 F H Pulse Rate 108 H 102 H Respiratory Rate 17 15 16 Blood Pressure 117/80 110/76 Pulse Oximetry 98 97 03/12/18 11:26 03/12/18 11:29 03/12/18 12:00 Temperature 100.2 F H 100.9 F H Pulse Rate 110 H 97 H 95 H Respiratory Rate 12 16 Blood Pressure 91/66 L 120/80 95/70 L Pulse Oximetry 03/12/18 12:30 03/12/18 13:10 03/12/18 13:44 Temperature 101.6 F H 102 F H Pulse Rate 95 H 98 H Respiratory Rate 19 24 18 Blood Pressure 119/85 116/83 Pulse Oximetry 92 L 94 L 03/12/18 15:00 03/12/18 16:00 03/12/18 16:30 Temperature 101.2 F H Pulse Rate 96 H 95 H Respiratory Rate 18 17 Blood Pressure 94/72 L 81/60 L Pulse Oximetry 94 L 97 03/12/18 17:30 03/12/18 19:00 03/12/18 19:20 Temperature 98.6 F 99.4 F Pulse Rate 97 H 96 H Respiratory Rate 13 Blood Pressure 83/61 L Pulse Oximetry 97 03/12/18 20:00 03/12/18 21:30 03/12/18 22:45 Temperature Pulse Rate 102 H Respiratory Rate 13 15 Blood Pressure 80/60 L Pulse Oximetry 96 97 03/12/18 22:55 03/12/18 23:00 03/12/18 23:13 Temperature 99.8 F H 99.8 F H Pulse Rate 100 H 102 H 98 H Respiratory Rate 15 16 Blood Pressure 100/71 107/78 Pulse Oximetry 96 03/13/18 00:10 03/13/18 00:26 03/13/18 01:00 Temperature 99.7 F H Pulse Rate 96 H 97 H Respiratory Rate 16 15 Blood Pressure 78/58 L 90/65 L Pulse Oximetry 95 95 03/13/18 01:31 03/13/18 01:47 03/13/18 03:00 Temperature 99.2 F 99.1 F Pulse Rate 97 H 91 H 85 Respiratory Rate 14 12 Blood Pressure 107/72 106/71 Pulse Oximetry 97 03/13/18 03:07 03/13/18 04:00 03/13/18 04:33 Temperature 98.8 F Pulse Rate 86 96 H Respiratory Rate 14 13 Blood Pressure 114/78 114/82 Pulse Oximetry 95 96 03/13/18 08:05 Temperature Pulse Rate Respiratory Rate 15 Blood Pressure Pulse Oximetry 95 Intake & Output 03/12/18 03/13/18 03/13/18 18:59 06:59 18:59 Intake Total 4595 / 4595 3408 / 3408 100 / 100 Output Total 5575 / 5575 1420 / 1420 Balance -980 / -980 1987 / 1987 100 / 100 Weight 155 lb 6.814 oz Intake: IV 2401 / 2401 1719 / 1719 100 / 100 Cordarone Inj 450 MG In D5W Inj 250 / 250 293 / 293 241 ML @ 1 MG/MIN 33.33 mls/hr IV.CONT TITRATE PRN Rx#: [id number] EPINEPHrine (1:1000) Inj 4 MG 250 / 250 In D5W Inj 246 ML @ 4 MCG/MIN 15 mls/hr IV.CONT TITRATE PRN Rx#:[id number] Versed Inj 50 mg In 50 ml @ 2 100 / 100 50 / 50 MG/HR 2 mls/hr IV.CONT TITRATE PRN Rx#:[id number] Primacor Inj 20 MG In NS Inj 80 100 / 100 100 / 100 ML @ 0.375 MCG/KG/MIN 6.86 mls /hr IV.CONT .[id number] [facility] Rx#: [id number] Pitressin Inj 40 UNIT In D5W 276 / 276 Inj 98 ML @ 0.01 UNITS/MIN 1.5 mls/hr IV.CONT TITRATE PRN Rx#: [id number] MVI-12 Inj 10 ML Thiamine Inj 500 / 500 100 MG Folvite Inj 1 MG In NS Inj 500 ML @ 125 mls/hr IV.SIG Q24H [facility] Rx#:[id number] Levophed-Dextrose 4 mg/250 ml 750 / 750 500 / 500 Drip 4 mg In 250 ml @ 2 MCG/MIN 7.5 mls/hr IV.SIG TITRATE PRN Rx#:[id number] Vitamin K Inj 10 MG In D5W Inj 51 / 51 50 ML @ 102 mls/hr IV.SIG ONCE ONE Rx#:[id number] Zosyn 3.375 GM Premix 50 ML @ 100 / 100 100 / 100 100 mls/hr IV.SIG Q6H [facility] Rx#: [id number] KCl 40 mEq Premix Inj 40 meq In 200 / 200 100 ml @ 25 mls/hr IV.SIG Q2H PRN Rx#:[id number] Vancomycin Inj 1,000 MG In NS 250 / 250 Inj 250 ML @ 250 mls/hr IV.SIG ONCE ONE Rx#:[id number] fentaNYL 10 mcg/mL Premix Drip 250 / 250 2,500 mcg In 250 ml @ 50 MCG/HR 5 mls/hr IV.SIG TITRATE PRN Rx #:[id number] Flolan (30,000 ng/mL) Neb 62.5 100 / 100 ML In NS Inj 37.5 ML @ 8 mls/hr NEB Q8H [facility] [place] Rx#:[id number] Tube Irrigant 520 / 520 100 / 100 Other 250 / 250 500 / 500 Rbc As-3 Leukoreduced Unit 500 / 500 [id number] Intake (Blood Product) Amt 1424 / 1424 1089 / 1089 Plasma Thawed 5 Day Acda Unit 0 / 0 220 / 220 [id number] Plasma Thawed 5 Day Acda Unit 224 / 224 [id number] Plasma Thawed 5 Day Cp2d Unit 280 / 280 [id number] Plt Pheresis C Leukoreduced 189 / 189 Unit [id number] Rbc As-3 Leukoreduced Unit 400 / 400 [id number] Rbc As-3 Leukoreduced Unit 400 / 400 [id number] Rbc As-3 Leukoreduced Unit 400 / 400 [id number] Rbc As-3 Leukoreduced Unit 400 / 400 [id number] Output: Urine Amount (Catheter) 1094 / 1518 1420 / 1420 Indwelling Urethral Catheter 5574 / 5574 1420 / 1420 Other: Other Intake Source Saline Solution Rbc As-3 Leukoreduced Unit Saline Solution [id number] Rbc As-3 Leukoreduced Unit Saline Solution [id number] Rbc As-3 Leukoreduced Unit Saline Solution [id number] Rbc As-3 Leukoreduced Unit Saline Solution [id number] Date of Last Bowel Movement 03/12/18 # Incontinent Bowel Movements 2 1 Narrative: GENERAL: Well-developed well-nourished. Currently stable. NECK: No carotid bruits. No JVD. CARDIOVASCULAR: Regular rate and rhythm. No murmur appreciated. RESPIRATORY: Mechanically ventilated. Clear to auscultation. Breath sounds equal bilaterally. MUSCULOSKELETAL: No edema. Absent pulses right lower extremity, dusky appearance R foot. NEUROLOGICAL: Intubated, sedated. - Urinary Catheter Management Female External Cath placed during this visit: yes Reason for continuing: Hourly intake/output Insertion date: 03/07/18 Insertion time: 17:00 Indwelling Urethral Catheter Cath placed during this visit: yes, but has since been removed by the nurse Reason for continuing: Hourly intake/output Insertion date: 03/10/18 Insertion time: : Removal date: 03/08/18 Removal time: 09: Assessment and Plan - Plan 58-year-old female with no prior cardiac history being seen for new onset cardiomyopathy. The patient presented 03/02 with nausea, vomiting, diarrhea. She was found to have anemia and GI bleeding, status post clipping of bleeding hemorrhoid, status post transfusion 1 unit PRBCs 03/04. Echocardiogram showed new cardiomyopathy with EF 3035%. Assessment: Patient seen and evaluated. Chart reviewed. Agree with above. Suspected presentation with colitis and developed cytokine storm with resultant multisystem organ failure. NICM EF 10-20% Cardiogenic shock with Impella 2.5 ADHF AF, currently NSR on amiodarone gtt at 0.5mg/kg/min, cannot be anticoagulated with active bleeding, thrombocytopenia and coagulopathy Severe coagulopathy with INR 5, improving s/p ffp severe blood loss anemia, actively bleeding/oozing from RFA impella site, s/p multiple PRBC transfusions thrombocytopenia Right leg ischemia suspect due to impella cannulation cirrhosis of the liver, due to alcoholism Acute renal failure, currently oliguric Acute respiratory failure, requiring mechanical ventilation Plan: She is currently hemodynamically stable. Urine output is picking up a bit. Bleeding is being controlled with manual pressure and transfusion of blood products. Continue diuretic therapy, she is highly net positive in volume due to prior hemodynamic collapse. Continue amiodarone gtt at 0.5mg/kg/min. Could consider transfer to tertiary care center for ecmo for R SFA temporary bypass, however with no clear skilled nursing recovery options at this junction and ongoing goals of care discussion with the family, would hold for now. her prognosis is very poor/grave. I agree with palliative care discussions with to help guide goals of care. Patient seen and examined. Agree with above. Discussed Condition With: Patient seen with Waxer Tender and RN at bedside.
[2018-03-13] MEDS: Insulin Detemir Inj 1,000 UNIT/10 ML Vial SQ SCH ×2 (08:59→21:08)
[2018-03-13] MEDS ORDERED: WATER IV.SIG PRN ×2 (11:00)
[2018-03-13] MEDS ORDERED: HEPARIN IV.SIG PRN ×2 (11:00)
[2018-03-13] MEDS ORDERED: DEXTROSE 5% IV.SIG PRN ×2 (11:00)
[2018-03-13 12:37] LABS: INR 1.4 Ratio; Prothrombin Time 14.4 sec (9.8-11.6)
[2018-03-13 12:56] LABS: Albumin 2.7 g/dL (3.4-5.0); Calcium 6.7 mg/dL (8.5-10.1); Carbon Dioxide 32.4 meq/L (21.0-32.0); Potassium 3.4 meq/L (3.5-5.1)
[2018-03-13 12:58] LABS: Total Protein 5.1 g/dL (6.4-8.2)
[2018-03-13] MEDS ORDERED: Calcium Chloride Inj 1 GM in Sodium Chlor 0.9% Inj 100 ML IV.SIG ONE (13:00)
[2018-03-13] MEDS ORDERED: SODIUM CHLOR NEB SCH (13:00)
[2018-03-13] MEDS ORDERED: EPOPROSTENOL NEB SCH (13:00)
--- NOTE | 2018-03-13 13:04 | P.PNNP ---
Subjective Interval history: Remains critically ill. Renal function is stable. Hypokalemic. Excellent urine output. <Minnie Yeung - Last Filed: 03/13/18 12:58> Physical Exam Vital signs: Vital Signs 03/12/18 13:10 03/12/18 13:44 03/12/18 15:00 Temperature 102 F H 101.2 F H Pulse Rate 98 H 96 H Respiratory Rate 24 18 18 Blood Pressure 116/83 94/72 L Pulse Oximetry 92 L 94 L 94 L 03/12/18 16:00 03/12/18 16:30 03/12/18 17:30 Temperature 98.6 F Pulse Rate 95 H Respiratory Rate 17 Blood Pressure 81/60 L Pulse Oximetry 97 03/12/18 19:00 03/12/18 19:20 03/12/18 20:00 Temperature 99.4 F Pulse Rate 97 H 96 H 102 H Respiratory Rate 13 Blood Pressure 83/61 L 80/60 L Pulse Oximetry 97 03/12/18 21:30 03/12/18 22:45 03/12/18 22:55 Temperature 99.8 F H Pulse Rate 100 H Respiratory Rate 13 15 15 Blood Pressure 100/71 Pulse Oximetry 96 97 03/12/18 23:00 03/12/18 23:13 03/13/18 00:10 Temperature 99.8 F H Pulse Rate 102 H 98 H 96 H Respiratory Rate 16 Blood Pressure 107/78 78/58 L Pulse Oximetry 96 03/13/18 00:26 03/13/18 01:00 03/13/18 01:31 Temperature 99.7 F H 99.2 F Pulse Rate 97 H 97 H Respiratory Rate 16 15 14 Blood Pressure 90/65 L 107/72 Pulse Oximetry 95 95 03/13/18 01:47 03/13/18 03:00 03/13/18 03:07 Temperature 99.1 F 98.8 F Pulse Rate 91 H 85 86 Respiratory Rate 12 14 Blood Pressure 106/71 114/78 Pulse Oximetry 97 95 03/13/18 04:00 03/13/18 04:33 03/13/18 07:00 Temperature 98.6 F Pulse Rate 96 H Respiratory Rate 13 Blood Pressure 114/82 Pulse Oximetry 96 03/13/18 08:05 03/13/18 09:30 03/13/18 10:35 Temperature 99.3 F 99.4 F Pulse Rate 89 88 Respiratory Rate 15 18 20 Blood Pressure 85/63 L 79/58 L Pulse Oximetry 95 93 L 03/13/18 11:20 Temperature 99.3 F Pulse Rate 82 Respiratory Rate 17 Blood Pressure 88/62 L Pulse Oximetry Intake & Output 03/12/18 03/13/18 03/13/18 18:59 06:59 18:59 Intake Total 4595 / 4595 3408 / 3408 550 / 550 Output Total 5575 / 5575 1420 / 1420 Balance -980 / -980 1987 550 / 550 Weight 70.5 kg Intake: IV 2401 / 2401 1719 / 1719 550 / 550 Cordarone Inj 450 MG In D5W Inj 250 / 250 293 / 293 250 / 250 241 ML @ 1 MG/MIN 33.33 mls/hr IV.CONT TITRATE PRN Rx#: [id number] EPINEPHrine (1:1000) Inj 4 MG 250 / 250 In D5W Inj 246 ML @ 4 MCG/MIN 15 mls/hr IV.CONT TITRATE PRN Rx#:[id number] Versed Inj 50 mg In 50 ml @ 2 100 / 100 50 / 50 50 / 50 MG/HR 2 mls/hr IV.CONT TITRATE PRN Rx#:[id number] Primacor Inj 20 MG In NS Inj 80 100 / 100 100 / 100 ML @ 0.375 MCG/KG/MIN 6.86 mls /hr IV.CONT .[id number] [facility] Rx#: [id number] Pitressin Inj 40 UNIT In D5W 276 / 276 Inj 98 ML @ 0.01 UNITS/MIN 1.5 mls/hr IV.CONT TITRATE PRN Rx#: [id number] MVI-12 Inj 10 ML Thiamine Inj 500 / 500 100 MG Folvite Inj 1 MG In NS Inj 500 ML @ 125 mls/hr IV.SIG Q24H [facility] Rx#:[id number] Levophed-Dextrose 4 mg/250 ml 750 / 750 500 / 500 Drip 4 mg In 250 ml @ 2 MCG/MIN 7.5 mls/hr IV.SIG TITRATE PRN Rx#:[id number] Vitamin K Inj 10 MG In D5W Inj 51 / 51 50 ML @ 102 mls/hr IV.SIG ONCE ONE Rx#:[id number] Zosyn 3.375 GM Premix 50 ML @ 100 / 100 100 / 100 50 / 50 100 mls/hr IV.SIG Q6H [facility] Rx#: [id number] KCl 40 mEq Premix Inj 40 meq In 200 / 200 100 / 100 100 ml @ 25 mls/hr IV.SIG Q2H [facility] Rx#:[id number] Vancomycin Inj 1,000 MG In NS 250 / 250 Inj 250 ML @ 250 mls/hr IV.SIG ONCE ONE Rx#:[id number] fentaNYL 10 mcg/mL Premix Drip 250 / 250 2,500 mcg In 250 ml @ 50 MCG/HR 5 mls/hr IV.SIG TITRATE PRN Rx #:[id number] Flolan (30,000 ng/mL) Neb 62.5 100 / 100 ML In NS Inj 37.5 ML @ 8 mls/hr NEB Q8H [facility] Rx#:[id number] Tube Irrigant 520 / 520 100 / 100 Other 250 / 250 500 / 500 Rbc As-3 Leukoreduced Unit 500 / 500 [id number] Intake (Blood Product) Amt 1424 / 1424 1089 / 1089 0 / 0 Plasma Thawed 5 Day Acda Unit 0 / 0 220 / 220 [id number] Plasma Thawed 5 Day Acda Unit 224 / 224 [id number] Plasma Thawed 5 Day Cp2d Unit 0 / 0 [id number] Plasma Thawed 5 Day Cp2d Unit 280 / 280 [id number] Plt Pheresis B Leukoreduced 0 / 0 Unit [id number] Plt Pheresis C Leukoreduced 189 / 189 Unit [id number] Rbc As-3 Leukoreduced Unit 0 / 0 [id number] Rbc As-3 Leukoreduced Unit 400 / 400 [id number] Rbc As-3 Leukoreduced Unit 400 / 400 [id number] Rbc As-3 Leukoreduced Unit 400 / 400 [id number] Rbc As-3 Leukoreduced Unit 400 / 400 [id number] Output: Urine Amount (Catheter) 5223 / 9072 1420 / 1420 Indwelling Urethral Catheter 3616 8556 1420 / 1420 Other: Other Intake Source Saline Solution Plasma Thawed 5 Day Cp2d Unit Saline Solution [id number] Plt Pheresis B Leukoreduced Saline Solution Unit [id number] Rbc As-3 Leukoreduced Unit Saline Solution [id number] Rbc As-3 Leukoreduced Unit Saline Solution [id number] Rbc As-3 Leukoreduced Unit Saline Solution [id number] Rbc As-3 Leukoreduced Unit Saline Solution [id number] Rbc As-3 Leukoreduced Unit Saline Solution [id number] Date of Last Bowel Movement 03/12/18 03/13/18 # Incontinent Bowel Movements 2 1 - Constitutional chronically ill appearing Comments: intubated, impella device ongoing, multiple gtts - Routine HEENT Exam Head: Present: normocephalic ENT: Present: mucous membranes moist - Routine Neck Exam Present: supple, full ROM - Routine Respiratory Exam Present: patient mechanically ventilated, CTA bilaterally - Routine Cardiovascular Exam Present: S1, S2 - Routine Abdominal Exam Present: soft, normoactive bowel sounds - Routine Extremities Exam Present: edema, pulses intact, normal capillary refill - Routine Skin Exam Present: intact, dry, warm - Routine Neurological Exam sedated - Detailed Neurological Exam: Coma Scale Eye Opening: To pressure Verbal Response: None Motor Response: Abnormal flexion Volin Coma Scale Total: 6 - Urinary Catheter Management Female External Cath placed during this visit: yes Reason for continuing: Hourly intake/output Insertion date: 03/07/18 Insertion time: 17:00 Indwelling Urethral Catheter Cath placed during this visit: yes, but has since been removed by the nurse Reason for continuing: Hourly intake/output Insertion date: 03/10/18 Insertion time: 09:30 Removal date: 03/08/18 Removal time: 09:25 <Minnie Yeung - Last Filed: 03/13/18 12:58> Vital signs: Vital Signs 03/13/18 23:00 03/14/18 00:00 03/14/18 00:10 Temperature 98.8 F Pulse Rate 72 83 Respiratory Rate 12 12 Blood Pressure 84/60 L 80/58 L Pulse Oximetry 97 97 03/14/18 03:00 03/14/18 03:15 03/14/18 03:43 Temperature 98.4 F Pulse Rate 86 83 Respiratory Rate 17 19 Blood Pressure 94/64 L Pulse Oximetry 95 95 03/14/18 04:00 03/14/18 06:25 03/14/18 06:53 Temperature 99.1 F 98.9 F Pulse Rate 86 79 88 Respiratory Rate 17 20 Blood Pressure 83/57 L 98/61 L 85/53 L Pulse Oximetry 96 95 03/14/18 06:57 03/14/18 07:00 03/14/18 07:53 Temperature 99 F 98.9 F 99 F Pulse Rate 89 88 88 Respiratory Rate 18 16 16 Blood Pressure 85/54 L 80/54 L 80/54 L Pulse Oximetry 96 03/14/18 08:00 03/14/18 08:15 03/14/18 08:25 Temperature 98.7 F Pulse Rate 71 73 Respiratory Rate 20 16 Blood Pressure 88/58 L 82/53 L Pulse Oximetry 92 L 93 L 03/14/18 11:00 03/14/18 11:11 03/14/18 11:30 Temperature 99.1 F 99.1 F Pulse Rate 78 65 Respiratory Rate 18 19 Blood Pressure 98/65 L 108/70 Pulse Oximetry 94 L 97 03/14/18 11:35 03/14/18 12:00 03/14/18 15:00 Temperature 99 F 99.6 F Pulse Rate 69 71 61 Respiratory Rate 16 16 Blood Pressure 120/79 132/85 94/65 L Pulse Oximetry 96 03/14/18 16:00 03/14/18 20:14 Temperature Pulse Rate 58 L Respiratory Rate 16 Blood Pressure 96/64 L Pulse Oximetry 94 L Intake & Output 03/14/18 03/14/18 03/15/18 06:59 18:59 06:59 Intake Total 1965.3 / 1965.3 2197 / 2197 Output Total 1370 / 1370 1100 / 1100 Balance 595.3 / 595.3 1097 / 1097 Weight 71 kg Intake: IV 1685.3 / 1685.3 450 / 450 Cordarone Inj 450 MG In D5W Inj 250 / 250 241 ML @ 1 MG/MIN 33.33 mls/hr IV.CONT TITRATE PRN Rx#: [id number] Versed Inj 50 mg In 50 ml @ 2 87.3 / 87.3 50 / 50 MG/HR 2 mls/hr IV.CONT TITRATE PRN Rx#:[id number] Primacor Inj 20 MG In NS Inj 80 98 / 98 ML @ 0.375 MCG/KG/MIN 6.86 mls /hr IV.CONT .[id number] [facility] Rx#: [id number] Pitressin Inj 40 UNIT In D5W 110 / 110 100 / 100 Inj 98 ML @ 0.01 UNITS/MIN 1.5 mls/hr IV.CONT TITRATE PRN Rx#: [id number] Magnesium Sulfate Inj 2 GM In 100 / 100 NS Inj 96 ML @ 50 mls/hr IV.SIG ONCE ONE Rx#:[id number] MVI-12 Inj 10 ML Thiamine Inj 540 / 540 100 MG Folvite Inj 1 MG In NS Inj 500 ML @ 125 mls/hr IV.SIG Q24H [facility] Rx#:[id number] Zosyn 3.375 GM Premix 50 ML @ 100 / 100 100 / 100 100 mls/hr IV.SIG Q6H [facility] Rx#: [id number] KCl 40 mEq Premix Inj 40 meq In 100 / 100 100 ml @ 25 mls/hr IV.SIG Q2H [facility] Rx#:[id number] NS Inj 250 ML @ 15 mls/hr IV. 50 / 50 SIG ONCE ONE Rx#:[id number] fentaNYL 10 mcg/mL Premix Drip 250 / 250 2,500 mcg In 250 ml @ 50 MCG/HR 5 mls/hr IV.SIG TITRATE PRN Rx #:[id number] Flolan (30,000 ng/mL) Neb 37.5 100 / 100 ML In NS Inj 62.5 ML @ 8 mls/hr NEB Q8H [facility] Rx#:[id number] Other 500 / 500 Pre-Pooled Cryo Thawed 10units 250 / 250 Unit [id number] Intake (Blood Product) Amt 280 / 280 1247 / 1247 Plt Pheresis A Leukoreduced 219 / 219 Unit [id number] Plt Pheresis A Leukoreduced 280 / 280 Unit [id number] Pre-Pooled Cryo Thawed 10units 228 / 228 Unit [id number] Rbc As-3 Leukoreduced Unit 400 / 400 [id number] Rbc As-3 Leukoreduced Unit 400 / 400 [id number] Output: Urine Amount (Catheter) 1370 / 1370 1100 / 1100 Indwelling Urethral Catheter 1370 / 1370 1100 / 1100 Other: Other Intake Source Saline Solution Plt Pheresis A Leukoreduced Saline Solution Unit [id number] Pre-Pooled Cryo Thawed 10units Saline Solution Unit [id number] Rbc As-3 Leukoreduced Unit Saline Solution [id number] Rbc As-3 Leukoreduced Unit Saline Solution [id number] Date of Last Bowel Movement 03/13/18 03/14/18 # Bowel Movements 2 - Urinary Catheter Management Female External Cath placed during this visit: no Indwelling Urethral Catheter Cath placed during this visit: no <Aj Spencer - Last Filed: 03/14/18 20:28> Assessment and Plan - Assessment (1) Acute kidney injury Code(s): N17.9 - Acute kidney failure, unspecified Status: Acute Plan: Normal renal function at baseline. Renal function remained stable overnight. LOEV most likely due to cardiogenic shock. Given a dose of Lasix. Excellent urine output. No need for renal replacement therapy. Continue pressor support, avoid hypotension. Obtain daily labs. Avoid nephrotoxic agents. Prognosis is poor. 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 Has history of lymphoma. Cardiology following. Supportive measures as mentioned above. The family is pondering passionate withdrawal in next day or two. (3) Ischemic leg Code(s): I99.8 - Other disorder of circulatory system Status: Acute Plan: Vascular surgery following, appreciate recommendations. (4) Cirrhosis Code(s): K74.60 - Unspecified cirrhosis of liver Status: Acute Plan: Per imaging. Management per critical care. <Minnie Yeung - Last Filed: 03/13/18 12:58> - Assessment (1) Acute kidney injury Code(s): N17.9 - Acute kidney failure, unspecified Status: Acute (2) Cardiogenic shock Code(s): R57.0 - Cardiogenic shock Status: Acute (3) Ischemic leg Code(s): I99.8 - Other disorder of circulatory system Status: Acute (4) Cirrhosis Code(s): K74.60 - Unspecified cirrhosis of liver Status: Acute - Attending Attestation patient was seen and examined. Renal function is stable, excellent urine output , but overall critically ill. Seen and examined on 03/13/18 <Aj Spencer - Last Filed: 03/14/18 20:28>
--- NOTE | 2018-03-13 14:08 | P.PNPAL ---
Reason for Visit Reason for visit: a. To assist with evaluation and management of symptoms including: dyspnea, pain, diarrhea b. To assist medical decision maker(s) with: better understanding of current medical conditions; weighing benefits/burdens of medical treatment options; making medical treatment decisions. Subjective Subjective/Interval History: Patient seen for medically necessary visit today follow-up on symptom management of dyspnea, pain, diarrhea and assist in goals of medical treatment. Clinical findings * Patient remains intubated, sedated on maximum support to include Impella 2.5, with performance level increased to 8 today at 4 AM with current flow at 3.4 liters per minute. * Cardiac index 2.8 with inotropic support from milrinone 0.375 micrograms per kilogram per minute. * She is hypotensive requiring both Levophed at 8 mcg/min and vasopressin at 0.04 U/min. * She remains on amiodarone for atrial fibrillation and is now in sinus rhythm at this evaluation. * She is lightly sedated on fentanyl 75 mcg/h and Versed at 3 mg/h. She is not following commands today but is seen to respond to verbal stimuli and exhibit some spontaneous movement. * She continues to bleed from the right Impella catheter insertion site, in spite of sandbag compression. She also continues to have rectal bleeding. * She has thus far received 11 units of packed red blood cells, 9 units of FFP , 4 packs of platelets, a 10 pack of cryoprecipitate. * Hemoglobin today 7.4, hematocrit 20.8, platelets 57. She is currently receiving 1 unit of packed red blood cells. * She received 2 units of FFP overnight. Her INR is now down to 1.4, from a high of 5.0. She remains mechanically ventilated on PRVC/AC mode, RR 8, FiO2 50 %. She is showing spontaneous respirations above vent rate. She remains on Flolan. Blood gases have consistently shown metabolic alkalosis, now slowly improving. PH 7.49, PCO2 42, PaO2 140, saturation 96% on 50% FiO2. She remains in a grossly positive balance. Her weight is up 45 pounds since admission on 03/02, likely significantly contributing to her ventilatory dependent respiratory failure. She is unable to quantify or qualify her pain given her intubated and sedated status. She continues to receive fentanyl to medicate baseline pain, felt to be multifactorial related to bedbound status, ischemic right leg, invasive lines , sandbags status, GI bleed status post colonoscopy with Endo Clip of spurting hemorrhoids. She continues to have liquid stools mixed with bright red blood. 1 cm metal pin with 2-3 mm loop on 1 and was found during raj-care. She is receiving metronidazole and Questran. Tube feedings are being held at this time due to extremely critical condition, poor liver function. . Advance Directives Living Will: Never completed Health Care Surrogate: Never completed Durable Power of Machine Operator Assistant: Never completed Objective Vital Signs: Vital Signs 03/12/18 13:44 03/12/18 15:00 03/12/18 16:00 Temperature 102 F H 101.2 F H Pulse Rate 98 H 96 H 95 H Respiratory Rate 18 18 Blood Pressure 116/83 94/72 L 81/60 L Pulse Oximetry 94 L 94 L 03/12/18 16:30 03/12/18 17:30 03/12/18 19:00 Temperature 98.6 F Pulse Rate 97 H Respiratory Rate 17 Blood Pressure Pulse Oximetry 97 03/12/18 19:20 03/12/18 20:00 03/12/18 21:30 Temperature 99.4 F Pulse Rate 96 H 102 H Respiratory Rate 13 13 Blood Pressure 83/61 L 80/60 L Pulse Oximetry 97 96 03/12/18 22:45 03/12/18 22:55 03/12/18 23:00 Temperature 99.8 F H Pulse Rate 100 H 102 H Respiratory Rate 15 15 Blood Pressure 100/71 Pulse Oximetry 97 03/12/18 23:13 03/13/18 00:10 03/13/18 00:26 Temperature 99.8 F H 99.7 F H Pulse Rate 98 H 96 H 97 H Respiratory Rate 16 16 Blood Pressure 107/78 78/58 L 90/65 L Pulse Oximetry 96 95 03/13/18 01:00 03/13/18 01:31 03/13/18 01:47 Temperature 99.2 F 99.1 F Pulse Rate 97 H 91 H Respiratory Rate 15 14 12 Blood Pressure 107/72 106/71 Pulse Oximetry 95 97 03/13/18 03:00 03/13/18 03:07 03/13/18 04:00 Temperature 98.8 F Pulse Rate 85 86 Respiratory Rate 14 13 Blood Pressure 114/78 Pulse Oximetry 95 96 03/13/18 04:33 03/13/18 07:00 03/13/18 08:05 Temperature 98.6 F Pulse Rate 96 H Respiratory Rate 15 Blood Pressure 114/82 Pulse Oximetry 95 03/13/18 09:30 03/13/18 10:35 03/13/18 11:20 Temperature 99.3 F 99.4 F 99.3 F Pulse Rate 89 88 82 Respiratory Rate 18 20 17 Blood Pressure 85/63 L 79/58 L 88/62 L Pulse Oximetry 93 L Intake & Output 03/12/18 03/13/18 03/13/18 18:59 06:59 18:59 Intake Total 4595 / 4595 3408 / 3408 750 / 750 Output Total 5575 / 5575 1420 / 1420 Balance -980 / -980 1987 750 / 750 Weight 155 lb 6.814 oz Intake: IV 2401 / 2401 1719 / 1719 750 / 750 Cordarone Inj 450 MG In D5W Inj 250 / 250 293 / 293 250 / 250 241 ML @ 1 MG/MIN 33.33 mls/hr IV.CONT TITRATE PRN Rx#: [id number] EPINEPHrine (1:1000) Inj 4 MG 250 / 250 In D5W Inj 246 ML @ 4 MCG/MIN 15 mls/hr IV.CONT TITRATE PRN Rx#:[id number] Versed Inj 50 mg In 50 ml @ 2 100 / 100 50 / 50 50 / 50 MG/HR 2 mls/hr IV.CONT TITRATE PRN Rx#:[id number] Primacor Inj 20 MG In NS Inj 80 100 / 100 100 / 100 ML @ 0.375 MCG/KG/MIN 6.86 mls /hr IV.CONT .[id number] JYOTHI Rx#: [id number] Pitressin Inj 40 UNIT In D5W 276 / 276 Inj 98 ML @ 0.01 UNITS/MIN 1.5 mls/hr IV.CONT TITRATE PRN Rx#: [id number] MVI-12 Inj 10 ML Thiamine Inj 500 / 500 100 MG Folvite Inj 1 MG In NS Inj 500 ML @ 125 mls/hr IV.SIG Q24H JYOTHI Rx#:[id number] Levophed-Dextrose 4 mg/250 ml 750 / 750 500 / 500 Drip 4 mg In 250 ml @ 2 MCG/MIN 7.5 mls/hr IV.SIG TITRATE PRN Rx#:[id number] Vitamin K Inj 10 MG In D5W Inj 51 / 51 50 ML @ 102 mls/hr IV.SIG ONCE ONE Rx#:[id number] Zosyn 3.375 GM Premix 50 ML @ 100 / 100 100 / 100 50 / 50 100 mls/hr IV.SIG Q6H JYOT[facility] Rx#: [id number] KCl 40 mEq Premix Inj 40 meq In 200 / 200 100 / 100 100 ml @ 25 mls/hr IV.SIG Q2H PRN Rx#:[id number] Vancomycin Inj 1,000 MG In NS 250 / 250 Inj 250 ML @ 250 mls/hr IV.SIG ONCE ONE Rx#:[id number] fentaNYL 10 mcg/mL Premix Drip 250 / 250 2,500 mcg In 250 ml @ 50 MCG/HR 5 mls/hr IV.SIG TITRATE PRN Rx #:[id number] Flolan (30,000 ng/mL) Neb 62.5 100 / 100 ML In NS Inj 37.5 ML @ 8 mls/hr NEB Q8H [facility] Rx#:[id number] Tube Irrigant 520 / 520 100 / 100 Other 250 / 250 500 / 500 Rbc As-3 Leukoreduced Unit 500 / 500 [id number] Intake (Blood Product) Amt 1424 / 1424 1089 / 1089 0 / 0 Plasma Thawed 5 Day Acda Unit 0 / 0 220 / 220 [id number] Plasma Thawed 5 Day Acda Unit 224 / 224 [id number] Plasma Thawed 5 Day Cp2d Unit 0 / 0 [id number] Plasma Thawed 5 Day Cp2d Unit 280 / 280 [id number] Plt Pheresis B Leukoreduced 0 / 0 Unit [id number] Plt Pheresis C Leukoreduced 189 / 189 Unit [id number] Rbc As-3 Leukoreduced Unit 0 / 0 [id number] Rbc As-3 Leukoreduced Unit 400 / 400 [id number] Rbc As-3 Leukoreduced Unit 400 / 400 [id number] Rbc As-3 Leukoreduced Unit 400 / 400 [id number] Rbc As-3 Leukoreduced Unit 400 / 400 [id number] Output: Urine Amount (Catheter) 5575 / 5575 1420 / 1420 Indwelling Urethral Catheter 5575 / 5575 1420 / 1420 Other: Other Intake Source Saline Solution Plasma Thawed 5 Day Cp2d Unit Saline Solution [id number] Plt Pheresis B Leukoreduced Saline Solution Unit [id number] Rbc As-3 Leukoreduced Unit Saline Solution [id number] Rbc As-3 Leukoreduced Unit Saline Solution [id number] Rbc As-3 Leukoreduced Unit Saline Solution [id number] Rbc As-3 Leukoreduced Unit Saline Solution [id number] Rbc As-3 Leukoreduced Unit Saline Solution [id number] Date of Last Bowel Movement 03/12/18 03/13/18 # Incontinent Bowel Movements 2 1 Physical Exam: CONSTITUTIONAL/GENERAL: This is an obese female pt, ill appearing, intubated on vent TUBES/LINES/DRAINS: OETT, Damon, RIJ central line, impella/cath right groin, right radial art line, right ACF PIV SKIN: No jaundice, rashes, or lesions. +Ecchymoses on upper extremities. No wounds seen anteriorly. Right lower extremity cool, mottled. Not diaphoretic. HEAD: Atraumatic. Normocephalic. EYES: PERRL. + scleral icterus. No injection or drainage. Fundi not examined. ENT: unable to assess hearing. Nose without bleeding or purulent drainage. Throat exam inhibited by OETT CARDIOVASCULAR: RRR without murmurs, gallops, or rubs. No JVD. RESPIRATORY/CHEST: Symmetric, unlabored respirations. Clear to auscultation. Breath sounds equal bilaterally. No wheezes, rales, or rhonchi. GASTROINTESTINAL: Abdomen soft, obese/distended. +hepatomegaly. bowel sounds hypoactive GENITOURINARY: Without palpable bladder distension. Damon catheter in place. MUSCULOSKELETAL: BLE edema L > R. RLE mottled, right foot cool NEUROLOGICAL: sedated on vent. PSYCHIATRIC: unable to assess, sedated on vent . Diagnostic Tests Laboratory: Laboratory Results - last 72 hr 03/04/18 03/10/18 03/10/18 11:52 14:20 17:15 WBC RBC Hgb Hct MCV MCH MCHC RDW Plt Count MPV Prelim Diff (Auto) Neut % (Auto) Lymph % (Auto) [place] % (Auto) Eos % (Auto) Baso % (Auto) Neut # (Auto) Lymph # (Auto) [place] # (Auto) Eos # (Auto) Baso # (Auto) WBC Differential Diff Scan Differential Comment Platelet Estimate Platelet Morphology Spherocytes Haptoglobin PT INR APTT Fibrinogen Puncture Site Patient Temperature O2 Saturation ABG pH ABG pCO2 ABG pO2 ABG HCO3 ABG O2 Content ABG Base Excess ABG Methemoglobin Hemoglobin Carboxyhemoglobin O2 Delivery Device Vent Setting Inspired O2 Critical Value Sodium Potassium Chloride Carbon Dioxide Anion Gap BUN Creatinine Estimated GFR POC Glucose 162 H Random Glucose Lactic Acid Calcium Prot Corrected Calcium Phosphorus Magnesium Total Bilirubin AST ALT Alkaline Phosphatase Lactate Dehydrogenase Total Protein Albumin Blood Type Antibody Screen MTS Gel Crossmatch See Detail Blood Bank Comment Bld Prod Order Comment 03/10/18 03/10/18 03/11/18 21:25 21:25 00:25 WBC RBC Hgb Hct MCV MCH MCHC RDW Plt Count MPV Prelim Diff (Auto) Neut % (Auto) Lymph % (Auto) [place] % (Auto) Eos % (Auto) Baso % (Auto) Neut # (Auto) Lymph # (Auto) [place] # (Auto) Eos # (Auto) Baso # (Auto) WBC Differential Diff Scan Differential Comment Platelet Estimate Platelet Morphology Spherocytes Haptoglobin PT INR APTT Greater than 90.0 H* D 201.9 H* D Fibrinogen Puncture Site Patient Temperature O2 Saturation ABG pH ABG pCO2 ABG pO2 ABG HCO3 ABG O2 Content ABG Base Excess ABG Methemoglobin Hemoglobin Carboxyhemoglobin O2 Delivery Device Vent Setting Inspired O2 Critical Value Sodium Potassium Chloride Carbon Dioxide Anion Gap BUN Creatinine Estimated GFR POC Glucose Random Glucose Lactic Acid Calcium Prot Corrected Calcium Phosphorus Magnesium Total Bilirubin AST ALT Alkaline Phosphatase Lactate Dehydrogenase Total Protein Albumin Blood Type A Positive Antibody Screen Negative MTS Gel Crossmatch See Detail Blood Bank Comment Bld Prod Order Comment 03/11/18 03/11/18 03/11/18 03:10 05:00 05:10 WBC 9.8 RBC 1.65 L Hgb 5.4 L* D Hct 15.8 L* MCV 95.6 D MCH 33.0 MCHC 34.5 RDW 27.3 H D Plt Count 98 L D MPV 9.4 Prelim Diff (Auto) Neut % (Auto) Lymph % (Auto) [place] % (Auto) Eos % (Auto) Baso % (Auto) Neut # (Auto) Lymph # (Auto) [place] # (Auto) Eos # (Auto) Baso # (Auto) WBC Differential Diff Scan Differential Comment Platelet Estimate Platelet Morphology Spherocytes Haptoglobin PT 27.5 H D INR 2.7 APTT 169.0 H* Fibrinogen Puncture Site Art line Patient Temperature 98.6 O2 Saturation 96 ABG pH 7.54 H* ABG pCO2 36 L ABG pO2 119 ABG HCO3 31 H ABG O2 Content 7.5 L ABG Base Excess 7.8 H ABG Methemoglobin 1.5 Hemoglobin 5.3 L* Carboxyhemoglobin 1.5 O2 Delivery Device Ventilator Vent Setting Prvc/ac Inspired O2 60 Critical Value Yes Sodium Potassium Chloride Carbon Dioxide Anion Gap BUN Creatinine Estimated GFR POC Glucose Random Glucose Lactic Acid Calcium Prot Corrected Calcium Phosphorus Magnesium Total Bilirubin AST ALT Alkaline Phosphatase Lactate Dehydrogenase Total Protein Albumin Blood Type Antibody Screen MTS Gel Crossmatch Blood Bank Comment Bld Prod Order Comment 03/11/18 03/11/18 03/11/18 05:10 06:24 07:40 WBC RBC Hgb Hct MCV MCH MCHC RDW Plt Count MPV Prelim Diff (Auto) Neut % (Auto) Lymph % (Auto) [place] % (Auto) Eos % (Auto) Baso % (Auto) Neut # (Auto) Lymph # (Auto) [place] # (Auto) Eos # (Auto) Baso # (Auto) WBC Differential Diff Scan Differential Comment Platelet Estimate Platelet Morphology Spherocytes Haptoglobin PT INR APTT Fibrinogen Puncture Site Patient Temperature O2 Saturation ABG pH ABG pCO2 ABG pO2 ABG HCO3 ABG O2 Content ABG Base Excess ABG Methemoglobin Hemoglobin Carboxyhemoglobin O2 Delivery Device Vent Setting Inspired O2 Critical Value Sodium 144 Potassium 4.6 D Chloride 98 Carbon Dioxide 31.5 D Anion Gap 15 BUN 28 H Creatinine 1.66 H Estimated GFR 32 L POC Glucose Random Glucose 232 H Lactic Acid 8.5 H* Calcium 8.1 L Prot Corrected Calcium Phosphorus 3.9 D Magnesium 1.4 L D Total Bilirubin 4.0 H AST 198 H ALT 53 Alkaline Phosphatase 69 Lactate Dehydrogenase Total Protein 4.8 L D Albumin 3.1 L Blood Type Antibody Screen MTS Gel Crossmatch See Detail Blood Bank Comment Bld Prod Order Comment 03/11/18 03/11/18 03/11/18 07:40 08:51 10:36 WBC RBC Hgb Hct MCV MCH MCHC RDW Plt Count MPV Prelim Diff (Auto) Neut % (Auto) Lymph % (Auto) [place] % (Auto) Eos % (Auto) Baso % (Auto) Neut # (Auto) Lymph # (Auto) [place] # (Auto) Eos # (Auto) Baso # (Auto) WBC Differential Diff Scan Differential Comment Platelet Estimate Platelet Morphology Spherocytes Haptoglobin PT INR APTT 138.9 H* Fibrinogen Puncture Site Patient Temperature O2 Saturation ABG pH ABG pCO2 ABG pO2 ABG HCO3 ABG O2 Content ABG Base Excess ABG Methemoglobin Hemoglobin Carboxyhemoglobin O2 Delivery Device Vent Setting Inspired O2 Critical Value Sodium Potassium Chloride Carbon Dioxide Anion Gap BUN Creatinine Estimated GFR POC Glucose 278 H Random Glucose Lactic Acid Calcium Prot Corrected Calcium Phosphorus Magnesium Total Bilirubin AST ALT Alkaline Phosphatase Lactate Dehydrogenase Total Protein Albumin Blood Type Antibody Screen [employer] Blood [facility] Comment [email or web address] Applicationd Prod Order Comment 03/11/18 03/11/18 03/11/18 13:03 13:30 13:30 WBC 8.9 RBC 3.24 L Hgb 10.1 L D Hct 28.9 L MCV 89.0 D MCH 31.1 MCHC 34.9 RDW 20.4 H D Plt Count 77 L MPV 9.2 Prelim Diff (Auto) Neut % (Auto) Lymph % (Auto) [place] % (Auto) Eos % (Auto) Baso % (Auto) Neut # (Auto) Lymph # (Auto) [place] # (Auto) Eos # (Auto) Baso # (Auto) WBC Differential Diff Scan Differential Comment Platelet Estimate Platelet Morphology Spherocytes Haptoglobin PT INR APTT Fibrinogen Puncture Site Patient Temperature O2 Saturation ABG pH ABG pCO2 ABG pO2 ABG HCO3 ABG O2 Content ABG Base Excess ABG Methemoglobin Hemoglobin Carboxyhemoglobin O2 Delivery Device Vent Setting Inspired O2 Critical Value Sodium 139 Potassium 4.1 Chloride 92 L Carbon Dioxide 32.5 H Anion Gap 15 BUN 29 H Creatinine 1.80 H Estimated GFR 29 L POC Glucose 346 H Random Glucose 290 H Lactic Acid Calcium 9.5 D Prot Corrected Calcium Phosphorus Magnesium 1.7 Total Bilirubin 4.7 H AST 269 H ALT 77 H Alkaline Phosphatase 66 Lactate Dehydrogenase Total Protein 5.3 L Albumin 3.2 L Blood Type Antibody Screen [employer] Blood [facility] Comment Bld Prod Order Comment 03/11/18 03/11/18 03/11/18 13:30 13:30 16:26 WBC RBC Hgb Hct MCV MCH MCHC RDW Plt Count MPV Prelim Diff (Auto) Neut % (Auto) Lymph % (Auto) [place] % (Auto) Eos % (Auto) Baso % (Auto) Neut # (Auto) Lymph # (Auto) [place] # (Auto) Eos # (Auto) Baso # (Auto) WBC Differential Diff Scan Differential Comment Platelet Estimate Platelet Morphology Spherocytes Haptoglobin PT INR APTT 78.8 H D Fibrinogen Puncture Site Patient Temperature O2 Saturation ABG pH ABG pCO2 ABG pO2 ABG HCO3 ABG O2 Content ABG Base Excess ABG Methemoglobin Hemoglobin Carboxyhemoglobin O2 Delivery Device Vent Setting Inspired O2 Critical Value Sodium Potassium Chloride Carbon Dioxide Anion Gap BUN Creatinine Estimated GFR POC Glucose Random Glucose Lactic Acid 4.9 H* Calcium Prot Corrected Calcium Phosphorus Magnesium Total Bilirubin AST ALT Alkaline Phosphatase Lactate Dehydrogenase Total Protein Albumin Blood Type Antibody Screen MTS Gel Crossmatch See Detail Blood Bank Comment Bld Prod Order Comment 03/11/18 03/11/18 03/11/18 16:55 17:00 17:00 WBC ND RBC ND Hgb ND Hct ND MCV ND MCH ND MCHC ND RDW ND Plt Count ND MPV ND Prelim Diff (Auto) Neut % (Auto) Lymph % (Auto) [place] % (Auto) Eos % (Auto) Baso % (Auto) Neut # (Auto) Lymph # (Auto) [place] # (Auto) Eos # (Auto) Baso # (Auto) WBC Differential Diff Scan Differential Comment Platelet Estimate Platelet Morphology Spherocytes Haptoglobin PT INR APTT Fibrinogen Puncture Site Patient Temperature O2 Saturation ABG pH ABG pCO2 ABG pO2 ABG HCO3 ABG O2 Content ABG Base Excess ABG Methemoglobin Hemoglobin Carboxyhemoglobin O2 Delivery Device Vent Setting Inspired O2 Critical Value Sodium Potassium Chloride Carbon Dioxide Anion Gap BUN Creatinine Estimated GFR POC Glucose 199 H Random Glucose Lactic Acid 4.2 H* Calcium Prot Corrected Calcium Phosphorus Magnesium Total Bilirubin AST ALT Alkaline Phosphatase Lactate Dehydrogenase Total Protein Albumin Blood Type Antibody Screen MTS Gel Crossmatch Blood Bank Comment Bld Prod Order Comment 03/11/18 03/11/18 03/11/18 17:00 17:00 17:00 WBC RBC Hgb Hct MCV MCH MCHC RDW Plt Count MPV Prelim Diff (Auto) Neut % (Auto) Lymph % (Auto) [place] % (Auto) Eos % (Auto) Baso % (Auto) Neut # (Auto) Lymph # (Auto) [place] # (Auto) Eos # (Auto) Baso # (Auto) WBC Differential Diff Scan Differential Comment Platelet Estimate Platelet Morphology Spherocytes Haptoglobin PT ND INR ND APTT ND Fibrinogen ND Puncture Site Patient Temperature O2 Saturation ABG pH ABG pCO2 ABG pO2 ABG HCO3 ABG O2 Content ABG Base Excess ABG Methemoglobin Hemoglobin Carboxyhemoglobin O2 Delivery Device Vent Setting Inspired O2 Critical Value Sodium ND Potassium ND Chloride ND Carbon Dioxide ND Anion Gap ND BUN ND Creatinine ND Estimated GFR ND POC Glucose Random Glucose ND Lactic Acid Calcium ND Prot Corrected Calcium Phosphorus Magnesium ND Total Bilirubin ND AST ND ALT ND Alkaline Phosphatase ND Lactate Dehydrogenase Total Protein ND Albumin ND Blood Type Antibody Screen [facility] Gel Crossmatch Blood Bank Comment [email or web address] Applicationd Prod Order Comment 03/11/18 03/11/18 03/11/18 18:11 18:33 18:46 WBC RBC Hgb Hct MCV MCH MCHC RDW Plt Count MPV Prelim Diff (Auto) Neut % (Auto) Lymph % (Auto) [place] % (Auto) Eos % (Auto) Baso % (Auto) Neut # (Auto) Lymph # (Auto) [place] # (Auto) Eos # (Auto) Baso # (Auto) WBC Differential Diff Scan Differential Comment Platelet Estimate Platelet Morphology Spherocytes Haptoglobin PT INR APTT Fibrinogen Puncture Site Patient Temperature O2 Saturation ABG pH ABG pCO2 ABG pO2 ABG HCO3 ABG O2 Content ABG Base Excess ABG Methemoglobin Hemoglobin Carboxyhemoglobin O2 Delivery Device Vent Setting Inspired O2 Critical Value Sodium Potassium Chloride Carbon Dioxide Anion Gap BUN Creatinine Estimated GFR POC Glucose Random Glucose Lactic Acid Calcium Prot Corrected Calcium Phosphorus Magnesium Total Bilirubin AST ALT Alkaline Phosphatase Lactate Dehydrogenase Total Protein Albumin Blood Type Antibody Screen [facility] Gel Crossmatch Blood Bank Comment Bld Prod Order Comment 03/11/18 03/11/18 03/11/18 18:47 19:15 19:15 WBC 8.1 RBC 3.16 L Hgb 10.5 L Hct 28.5 L MCV 90.3 MCH 33.2 MCHC 36.7 H RDW 17.6 H D Plt Count 70 L MPV 8.7 Prelim Diff (Auto) Slide review pending Neut % (Auto) 88.9 H Lymph % (Auto) 4.8 L [place] % (Auto) 6.1 Eos % (Auto) 0.0 Baso % (Auto) 0.2 Neut # (Auto) 7.2 Lymph # (Auto) 0.4 L [place] # (Auto) 0.5 Eos # (Auto) 0.0 Baso # (Auto) 0.0 WBC Differential . Diff Scan Auto diff confirmed Differential Comment . Platelet Estimate Low L Platelet Morphology Normal Spherocytes 2+ H Haptoglobin PT INR APTT Fibrinogen Puncture Site Patient Temperature O2 Saturation ABG pH ABG pCO2 ABG pO2 ABG HCO3 ABG O2 Content ABG Base Excess ABG Methemoglobin Hemoglobin Carboxyhemoglobin O2 Delivery Device Vent Setting Inspired O2 Critical Value Sodium 137 Potassium 3.9 Chloride 90 L Carbon Dioxide 34.7 H Anion Gap 12 BUN 30 H Creatinine 1.81 H Estimated GFR 29 L POC Glucose Random Glucose 247 H Lactic Acid Calcium 8.4 L D Prot Corrected Calcium Phosphorus Magnesium 1.6 Total Bilirubin 5.3 H AST 329 H ALT 90 H Alkaline Phosphatase 60 Lactate Dehydrogenase Total Protein 5.4 L Albumin 3.4 Blood Type Antibody Screen [employer] [facility] Comment [email or web address] Applicationd Prod Order Comment 03/11/18 03/11/18 03/11/18 19:15 21:43 21:44 WBC RBC Hgb Hct MCV MCH MCHC RDW Plt Count MPV Prelim Diff (Auto) Neut % (Auto) Lymph % (Auto) [place] % (Auto) Eos % (Auto) Baso % (Auto) Neut # (Auto) Lymph # (Auto) [place] # (Auto) Eos # (Auto) Baso # (Auto) WBC Differential Diff Scan Differential Comment Platelet Estimate Platelet Morphology Spherocytes Haptoglobin PT 19.3 H INR 1.9 APTT 117.1 H* D Fibrinogen 239 Puncture Site Patient Temperature O2 Saturation ABG pH ABG pCO2 ABG pO2 ABG HCO3 ABG O2 Content ABG Base Excess ABG Methemoglobin Hemoglobin Carboxyhemoglobin O2 Delivery Device Vent Setting Inspired O2 Critical Value Sodium Potassium Chloride Carbon Dioxide Anion Gap BUN Creatinine Estimated GFR POC Glucose 330 H 344 H Random Glucose Lactic Acid Calcium Prot Corrected Calcium Phosphorus Magnesium Total Bilirubin AST ALT Alkaline Phosphatase Lactate Dehydrogenase Total Protein Albumin Blood Type Antibody Screen [employer] [facility] Comment [email or web address] Applicationd Prod Order Comment 03/11/18 03/12/18 03/12/18 Unknown 04:03 04:03 WBC RBC Hgb Hct MCV MCH MCHC RDW Plt Count MPV Prelim Diff (Auto) Neut % (Auto) Lymph % (Auto) [place] % (Auto) Eos % (Auto) Baso % (Auto) Neut # (Auto) Lymph # (Auto) [place] # (Auto) Eos # (Auto) Baso # (Auto) WBC Differential Diff Scan Differential Comment Platelet Estimate Platelet Morphology Spherocytes Haptoglobin PT 15.4 H INR 1.5 APTT 58.2 H D Fibrinogen Puncture Site Patient Temperature O2 Saturation ABG pH ABG pCO2 ABG pO2 ABG HCO3 ABG O2 Content ABG Base Excess ABG Methemoglobin Hemoglobin Carboxyhemoglobin O2 Delivery Device Vent Setting Inspired O2 Critical Value Sodium 133 L Potassium 3.2 L Chloride 84 L Carbon Dioxide 35.7 H Anion Gap 13 BUN 31 H Creatinine 1.77 H Estimated GFR 29 L POC Glucose Random Glucose 256 H Lactic Acid Calcium 8.2 L Prot Corrected Calcium Phosphorus 3.7 Magnesium 2.2 D Total Bilirubin 8.7 H AST 373 H ALT 102 H Alkaline Phosphatase 77 Lactate Dehydrogenase Total Protein 6.5 D Albumin 3.6 Blood Type Antibody Screen MTS Gel Crossmatch Blood Bank Comment Bld Prod Order Comment 03/12/18 03/12/18 03/12/18 04:03 06:10 08:52 WBC RBC Hgb Hct MCV MCH MCHC RDW Plt Count MPV Prelim Diff (Auto) Neut % (Auto) Lymph % (Auto) [place] % (Auto) Eos % (Auto) Baso % (Auto) Neut # (Auto) Lymph # (Auto) [place] # (Auto) Eos # (Auto) Baso # (Auto) WBC Differential Diff Scan Differential Comment Platelet Estimate Platelet Morphology Spherocytes Haptoglobin PT INR APTT Fibrinogen Puncture Site Art line Patient Temperature 98.6 O2 Saturation 96 ABG pH 7.52 H* ABG pCO2 44 H ABG pO2 160 H ABG HCO3 36 H ABG O2 Content 11.2 L ABG Base Excess 11.9 H ABG Methemoglobin 1.6 Hemoglobin 8.0 L Carboxyhemoglobin 1.7 O2 Delivery Device Ventilator Vent Setting Prvc/ac Inspired O2 60 Critical Value Yes Sodium Potassium Chloride Carbon Dioxide Anion Gap BUN Creatinine Estimated GFR POC Glucose Random Glucose Lactic Acid 3.5 H Calcium Prot Corrected Calcium Phosphorus Magnesium Total Bilirubin AST ALT Alkaline Phosphatase Lactate Dehydrogenase Total Protein Albumin Blood Type Antibody Screen MTS Gel Crossmatch See Detail Blood Bank Comment Bld Prod Order Comment 03/12/18 03/12/18 03/12/18 08:56 09:15 09:26 WBC 14.0 H D RBC 1.38 L Hgb 5.0 L* D Hct 13.8 L* MCV 100.2 H D MCH 36.2 H MCHC 36.2 H RDW 18.6 H Plt Count 94 L D MPV 8.9 Prelim Diff (Auto) Neut % (Auto) Lymph % (Auto) [place] % (Auto) Eos % (Auto) Baso % (Auto) Neut # (Auto) Lymph # (Auto) [place] # (Auto) Eos # (Auto) Baso # (Auto) WBC Differential Diff Scan Differential Comment Platelet Estimate Platelet Morphology Spherocytes Haptoglobin PT INR APTT Fibrinogen Puncture Site Patient Temperature O2 Saturation ABG pH ABG pCO2 ABG pO2 ABG HCO3 ABG O2 Content ABG Base Excess ABG Methemoglobin Hemoglobin Carboxyhemoglobin O2 Delivery Device Vent Setting Inspired O2 Critical Value Sodium Potassium Chloride Carbon Dioxide Anion Gap BUN Creatinine Estimated GFR POC Glucose 298 H Random Glucose Lactic Acid Calcium Prot Corrected Calcium Phosphorus Magnesium Total Bilirubin AST ALT Alkaline Phosphatase Lactate Dehydrogenase Total Protein Albumin Blood Type Antibody Screen MTS Gel Crossmatch Blood Bank Comment Bld Prod Order Comment 03/12/18 03/12/18 03/12/18 09:26 10:19 12:07 WBC RBC Hgb Hct MCV MCH MCHC RDW Plt Count MPV Prelim Diff (Auto) Neut % (Auto) Lymph % (Auto) [place] % (Auto) Eos % (Auto) Baso % (Auto) Neut # (Auto) Lymph # (Auto) [place] # (Auto) Eos # (Auto) Baso # (Auto) WBC Differential Diff Scan Differential Comment Platelet Estimate Platelet Morphology Spherocytes Haptoglobin PT INR APTT Fibrinogen 282 Puncture Site Patient Temperature O2 Saturation ABG pH ABG pCO2 ABG pO2 ABG HCO3 ABG O2 Content ABG Base Excess ABG Methemoglobin Hemoglobin Carboxyhemoglobin O2 Delivery Device Vent Setting Inspired O2 Critical Value Sodium Potassium Chloride Carbon Dioxide Anion Gap BUN Creatinine Estimated GFR POC Glucose 292 H Random Glucose Lactic Acid Calcium Prot Corrected Calcium Phosphorus Magnesium Total Bilirubin AST ALT Alkaline Phosphatase Lactate Dehydrogenase Total Protein Albumin Blood Type Antibody Screen MTS Gel Crossmatch See Detail Blood Bank Comment Bld Prod Order Comment 03/12/18 03/12/18 03/12/18 14:40 14:40 16:00 WBC 10.5 RBC 2.66 L Hgb 8.4 L D Hct 23.7 L MCV 89.0 D MCH 31.4 MCHC 35.2 RDW 18.9 H Plt Count 63 L D MPV 8.7 Prelim Diff (Auto) Neut % (Auto) Lymph % (Auto) [place] % (Auto) Eos % (Auto) Baso % (Auto) Neut # (Auto) Lymph # (Auto) [place] # (Auto) Eos # (Auto) Baso # (Auto) WBC Differential Diff Scan Differential Comment Platelet Estimate Platelet Morphology Spherocytes Haptoglobin PT 15.5 H INR 1.5 APTT 56.6 H Fibrinogen 249 Puncture Site Patient Temperature O2 Saturation ABG pH ABG pCO2 ABG pO2 ABG HCO3 ABG O2 Content ABG Base Excess ABG Methemoglobin Hemoglobin Carboxyhemoglobin O2 Delivery Device Vent Setting Inspired O2 Critical Value Sodium Potassium Chloride Carbon Dioxide Anion Gap BUN Creatinine Estimated GFR POC Glucose Random Glucose Lactic Acid Calcium Prot Corrected Calcium Phosphorus Magnesium Total Bilirubin AST ALT Alkaline Phosphatase Lactate Dehydrogenase Total Protein Albumin Blood Type Antibody Screen [employer] [facility] Comment d Prod Order Comment 03/12/18 03/12/18 03/12/18 16:00 16:50 16:50 WBC RBC Hgb Hct MCV MCH MCHC RDW Plt Count MPV Prelim Diff (Auto) Neut % (Auto) Lymph % (Auto) [place] % (Auto) Eos % (Auto) Baso % (Auto) Neut # (Auto) Lymph # (Auto) [place] # (Auto) Eos # (Auto) Baso # (Auto) WBC Differential Diff Scan Differential Comment Platelet Estimate Platelet Morphology Spherocytes Haptoglobin 26 L PT INR APTT Fibrinogen Puncture Site Patient Temperature O2 Saturation ABG pH ABG pCO2 ABG pO2 ABG HCO3 ABG O2 Content ABG Base Excess ABG Methemoglobin Hemoglobin Carboxyhemoglobin O2 Delivery Device Vent Setting Inspired O2 Critical Value Sodium 133 L Potassium 3.9 Chloride 91 L Carbon Dioxide 32.2 H Anion Gap 10 BUN 31 H Creatinine 1.57 H Estimated GFR 34 L POC Glucose Random Glucose 253 H Lactic Acid Calcium 6.3 L* D Prot Corrected Calcium 7.8 L Phosphorus Magnesium Total Bilirubin 6.6 H AST 227 H ALT 69 H Alkaline Phosphatase 56 Lactate Dehydrogenase 485 H Total Protein 4.2 L D Albumin 2.2 L D Blood Type Antibody Screen [employer] [facility] Comment Bld Prod Order Comment 03/12/18 03/12/18 03/12/18 17:13 20:53 22:44 WBC RBC Hgb Hct MCV MCH MCHC RDW Plt Count MPV Prelim Diff (Auto) Neut % (Auto) Lymph % (Auto) [place] % (Auto) Eos % (Auto) Baso % (Auto) Neut # (Auto) Lymph # (Auto) [place] # (Auto) Eos # (Auto) Baso # (Auto) WBC Differential Diff Scan Differential Comment Platelet Estimate Platelet Morphology Spherocytes Haptoglobin PT INR APTT Fibrinogen Puncture Site Patient Temperature O2 Saturation ABG pH ABG pCO2 ABG pO2 ABG HCO3 ABG O2 Content ABG Base Excess ABG Methemoglobin Hemoglobin Carboxyhemoglobin O2 Delivery Device Vent Setting Inspired O2 Critical Value Sodium Potassium Chloride Carbon Dioxide Anion Gap BUN Creatinine Estimated GFR POC Glucose 297 H 310 H Random Glucose Lactic Acid 3.5 H Calcium Prot Corrected Calcium Phosphorus Magnesium Total Bilirubin AST ALT Alkaline Phosphatase Lactate Dehydrogenase Total Protein Albumin Blood Type Antibody Screen [employer] [facility] Comment [email or web address] Applicationd Prod Order Comment 03/13/18 03/13/18 03/13/18 04:06 04:06 04:06 WBC 11.3 H RBC 2.43 L Hgb 7.4 L Hct 20.8 L* MCV 85.7 MCH 30.7 MCHC 35.8 RDW 15.9 D Plt Count 57 L MPV 8.2 Prelim Diff (Auto) Neut % (Auto) Lymph % (Auto) [place] % (Auto) Eos % (Auto) Baso % (Auto) Neut # (Auto) Lymph # (Auto) [place] # (Auto) Eos # (Auto) Baso # (Auto) WBC Differential Diff Scan Differential Comment Platelet Estimate Platelet Morphology Spherocytes Haptoglobin PT 15.8 H INR 1.6 APTT Fibrinogen Puncture Site Patient Temperature O2 Saturation ABG pH ABG pCO2 ABG pO2 ABG HCO3 ABG O2 Content ABG Base Excess ABG Methemoglobin Hemoglobin Carboxyhemoglobin O2 Delivery Device Vent Setting Inspired O2 Critical Value Sodium 133 L Potassium 2.9 L* D Chloride 87 L Carbon Dioxide 33.3 H Anion Gap 13 BUN 32 H Creatinine 1.58 H Estimated GFR 34 L POC Glucose Random Glucose 248 H Lactic Acid Calcium 6.4 L* Prot Corrected Calcium 7.6 L Phosphorus 3.5 Magnesium 1.5 D Total Bilirubin 6.9 H AST 193 H ALT 71 H Alkaline Phosphatase 62 Lactate Dehydrogenase Total Protein 4.7 L Albumin 2.5 L Blood Type Antibody Screen [employer] [facility] Comment Bld Prod Order Comment 03/13/18 03/13/18 03/13/18 04:06 04:10 08:19 WBC RBC Hgb Hct MCV MCH MCHC RDW Plt Count MPV Prelim Diff (Auto) Neut % (Auto) Lymph % (Auto) [place] % (Auto) Eos % (Auto) Baso % (Auto) Neut # (Auto) Lymph # (Auto) [place] # (Auto) Eos # (Auto) Baso # (Auto) WBC Differential Diff Scan Differential Comment Platelet Estimate Platelet Morphology Spherocytes Haptoglobin PT INR APTT 57.6 H Fibrinogen Puncture Site Art line Patient Temperature 98.6 O2 Saturation 96 ABG pH 7.49 H ABG pCO2 42 ABG pO2 140 H ABG HCO3 31 H ABG O2 Content 11.1 L ABG Base Excess 7.6 H ABG Methemoglobin 1.7 Hemoglobin 8.0 L Carboxyhemoglobin 1.5 O2 Delivery Device Ventilator Vent Setting Prvc/ac Inspired O2 50 Critical Value No Sodium Potassium Chloride Carbon Dioxide Anion Gap BUN Creatinine Estimated GFR POC Glucose Random Glucose Lactic Acid Calcium Prot Corrected Calcium Phosphorus Magnesium Total Bilirubin AST ALT Alkaline Phosphatase Lactate Dehydrogenase Total Protein Albumin Blood Type A Positive Antibody Screen Negative MTS Gel Crossmatch See Detail Blood Bank Comment Bld Prod Order Comment 03/13/18 03/13/18 03/13/18 08:19 11:55 11:55 WBC RBC Hgb Hct MCV MCH MCHC RDW Plt Count MPV Prelim Diff (Auto) Neut % (Auto) Lymph % (Auto) [place] % (Auto) Eos % (Auto) Baso % (Auto) Neut # (Auto) Lymph # (Auto) [place] # (Auto) Eos # (Auto) Baso # (Auto) WBC Differential Diff Scan Differential Comment Platelet Estimate Platelet Morphology Spherocytes Haptoglobin PT 14.4 H INR 1.4 APTT Fibrinogen Puncture Site Patient Temperature O2 Saturation ABG pH ABG pCO2 ABG pO2 ABG HCO3 ABG O2 Content ABG Base Excess ABG Methemoglobin Hemoglobin Carboxyhemoglobin O2 Delivery Device Vent Setting Inspired O2 Critical Value Sodium 132 L Potassium 3.4 L Chloride 87 L Carbon Dioxide 32.4 H Anion Gap 13 BUN 32 H Creatinine 1.46 H Estimated GFR 37 L POC Glucose Random Glucose 244 H Lactic Acid 2.2 H Calcium 6.7 L* Prot Corrected Calcium 7.7 L Phosphorus Magnesium Total Bilirubin 6.4 H AST 171 H ALT 63 H Alkaline Phosphatase 66 Lactate Dehydrogenase Total Protein 5.1 L Albumin 2.7 L Blood Type Antibody Screen MTS Gel Crossmatch Blood Bank Comment Bld Prod Order Comment 03/13/18 12:38 WBC RBC Hgb Hct MCV MCH MCHC RDW Plt Count MPV Prelim Diff (Auto) Neut % (Auto) Lymph % (Auto) [place] % (Auto) Eos % (Auto) Baso % (Auto) Neut # (Auto) Lymph # (Auto) [place] # (Auto) Eos # (Auto) Baso # (Auto) WBC Differential Diff Scan Differential Comment Platelet Estimate Platelet Morphology Spherocytes Haptoglobin PT INR APTT Fibrinogen Puncture Site Patient Temperature O2 Saturation ABG pH ABG pCO2 ABG pO2 ABG HCO3 ABG O2 Content ABG Base Excess ABG Methemoglobin Hemoglobin Carboxyhemoglobin O2 Delivery Device Vent Setting Inspired O2 Critical Value Sodium Potassium Chloride Carbon Dioxide Anion Gap BUN Creatinine Estimated GFR POC Glucose 253 H Random Glucose Lactic Acid Calcium Prot Corrected Calcium Phosphorus Magnesium Total Bilirubin AST ALT Alkaline Phosphatase Lactate Dehydrogenase Total Protein Albumin Blood Type Antibody Screen MTS Gel Crossmatch Blood Bank Comment Bld Prod Order Comment Result Diagrams: 03/13/18 04:06 03/13/18 11:55 Microbiology: Microbiology 03/12/18 04:15 Gram Stain - Final Sputum - Oral Tracheal Aspirate Sputum Culture - Preliminary Heavy growth normal respiratory tierney at 24 hours 03/11/18 20:06 Aerobic Blood Culture - Preliminary Blood - Peripheral No growth in 2 days Anaerobic Blood Culture - Preliminary No growth in 2 days 03/11/18 20:00 Aerobic Blood Culture - Preliminary Blood - Peripheral No growth in 2 days Anaerobic Blood Culture - Preliminary No growth in 2 days 03/10/18 07:28 Aerobic Blood Culture - Preliminary Blood - Peripheral No growth in 3 days Anaerobic Blood Culture - Preliminary No growth in 3 days 03/10/18 07:22 Aerobic Blood Culture - Preliminary Blood - Peripheral No growth in 3 days Anaerobic Blood Culture - Preliminary No growth in 3 days 03/11/18 15:55 Urine Culture - Final Catheterized Urine No growth in 48 hours 03/10/18 09:00 Urine Culture - Final Catheterized Urine No growth in 48 hours 03/07/18 16:04 Gram Stain - Final Fluid - Pleural fluid Body Fluid Culture - Final No growth in 72 hours (aerobically and anaerobically) Imaging: Abdomen/Pelvis CT 03/02/18 12:17 CONCLUSION: 1. Wall thickening of the proximal half of the transverse colon with a questionable submucosal edema and mild adjacent inflammation could represent a colitis. There is trace free fluid in the pelvis. 2. No other acute finding is identified and there are no lymphadenopathy. There is stable splenomegaly. 3. Nonacute findings include hepatomegaly with steatosis and severe atherosclerotic disease. Abdomen MRI 03/05/18 00:00 CONCLUSION: 1. 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 Celiac artery and YARI are patent. Typically, stenosis of a single mesenteric artery should not cause significant mesenteric ischemia. However, in a rare but appropriate clinical setting this may be symptomatic. 2. Diffuse atherosclerotic disease in the abdominal aorta. 3. Small bilateral pleural effusions. 4. Hepatic steatosis. Chest X-Ray 03/06/18 22:26 CONCLUSION: Diffuse increased interstitial markings likely related to edema. These are new. Abdomen X-Ray 03/06/18 23:18 CONCLUSION: Benign-appearing abdomen. 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 Abdomen/Pelvis CT 03/07/18 00:00 CONCLUSION: 1. Bilateral pleural effusions being moderate on the right and mild on the left with accompanying atelectasis or consolidation. 2. Hepatosplenomegaly. There is hepatic steatosis. 3. Small nonobstructing renal stones. 4. Suspected vicarious excretion of contrast within the gallbladder versus milk of calcium. 5. The prominence of the wall of the ascending colon and proximal transverse colon is thought to be secondary to fat deposition. Significant surrounding inflammatory change is not seen. 6. Diffuse subcutaneous edema. Chest CTA 03/07/18 00:00 CONCLUSION: 1. Pulmonary edema and moderate bilateral pleural effusions with dependent/ compressive atelectasis. 2. No pulmonary embolus. 3. Coronary artery calcification. Chest X-Ray 03/07/18 11:37 CONCLUSION: 1. Small left pleural effusion with associated left lower lobe airspace consolidation. 2. Persistent mild positive fluid balance. Chest X-Ray 03/07/18 15:59 CONCLUSION: Worsening pulmonary edema. Chest X-Ray 03/08/18 06:00 CONCLUSION: Improving pulmonary edema. Chest X-Ray 03/10/18 00:00 CONCLUSION: Bilateral consolidation and effusions. Abdomen/Pelvis CT 03/10/18 00:29 CONCLUSION: 1. Unchanged exam. Bilateral pleural effusions and associated atelectasis. 2. Hepatomegaly with some lobulation to the contour and small volume ascites. This raises concern for possible cirrhosis. 3. Coronary artery atherosclerotic calcifications. Chest X-Ray 03/10/18 11:32 CONCLUSION: Central line as above. Chest X-Ray 03/11/18 05:00 CONCLUSION: Stable chest x-ray with bibasilar opacities characteristic of pleural effusions with associated volume loss and/or airspace consolidation. Gallbladder Ultrasound 03/12/18 00:00 CONCLUSION: 1. Cirrhotic liver with small amount of abdominal ascites. 2. Gallbladder wall thickening. Procedures: 03/05 EGD colonoscopy 03/07 thoracentesis 03/10 intubated, left heart cath, impella placed, arterial line placed, central lne placed, right IJ PA catheter placed Assessment and Plan - Disease Oriented Problem List (1) Cardiogenic shock (2) Systolic and diastolic CHF, acute (3) Hypotension (4) GIB (gastrointestinal bleeding) (5) Acute kidney injury (6) Ischemic leg Pertinent Non-Medical Issues: Psychosocial: , lives with . Has 2 sons. Unemployed. Spiritual: no buddhist affiliation Legal: Pt not capacitated to make medical decisions. In absence of designated HCS, proxy decision making falls to , per [place] statutes. Ethical issues impacting care: none. Important Contacts: Jay Henriquez [phone] Son Luis Henriquez [phone] Prognosis: This is a 58 yo female with hx non hodgkins lymphoma in remission, etoh abuse, 40 pack years, who presented 03/02 with 4 month hx diarrhea. AFter she was admitted she developed new onset cardiomyopathy and subsequently severe cardiogenic shock. Had left heart cath and placement of impella. EF initially 30 -35%, now estimated to be 10-15%. Currently on multiple pressors and amiodarone. RLE ischemic and nonfunctional, cannot be revascularized d/t presence impella. Suffered LOVE, now LFTs are rising and it appears she has cirrhosis. Continued drops in hgb requiring mult transfusions. Unlikely she is candidate for a heart transplant. Her prognosis is poor. Code Status: Alternative Code (intubation only) Plan: - LEGAL DECISION MAKER - Pt not capacitated to make medical decisions and may not regain capacity. In the absence of a designated HCS, per [place] statutes proxy decision making falls to her . - CODE STATUS - alt code intubation only - GOALS - Goals aggressive short of alt code intubation only. Family wants to wait for a few days to see if pt can be weaned from impella and to see if there are any improvements over all. 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 EF 10-15%. on mult pressors. Intubated on vent. has PRN duonebs, jyothi symbicort. no further recs * pain - multifactorial, 2/2 mult lines, catheters, procedures. No sign pain on my eval today. On fentanyl 7.5ml/hr. has morphine 2mg IV q4h PRN. no further recs at this time * diarrhea - unclear etiology. had EGD colonoscopy this admission, bx benign. WBC 11.3 today, on zosyn, flagyl. on questran. no further recs * debility - unlikely if she survives she will return to baseline. cardiac status unlikely to allow for any aggressive rehab risk for losing RLE d/t presence impella. - d/w CCM Palliative care will continue to follow during hospital course as condition evolves, to assist patient/decision-maker with understanding of medical conditions, weighing benefits/burdens of treatment options, for clarification of goals of treatment. Additionally will assist with any symptoms of palliative concern Attestation Attestation: To help prompt me to consider important information that might be impacting today's encounter and assessment, information from prior notes written by myself or my colleagues may have been "brought forward" into today's note. My signature on this note, however, is an attestation that I personally performed the exam, history, and/or decision-making noted today, and, unless otherwise indicated, the interactions with patient, family, and staff as well as the review of records all occurred today. I also attest that the listed assessment and stated plan reflect my best clinical judgment today based on the combination of historical information, prior notes, and today's exam/ interactions. When time spent is documented, it refers only to time spent today by the signer, or if indicated, combined time spent today by collaborating physician/nurse practitioner. .
[2018-03-13 15:20] LABS: Baso # (Auto) 0.1 th/mm3 (0.0-0.2); Baso % (Auto) 1.2 % (0.0-2.0); Eos % (Auto) 0.1 % (0.0-4.0); Hematocrit 21.4 % (35.0-46.0); Hemoglobin 7.6 gm/dL (11.6-15.3); Lymph # (Auto) 0.5 th/mm3 (1.0-4.8); Lymph % (Auto) 5.3 % (9.0-44.0); Mean Corpuscular HGB Conc 35.6 % (32.0-36.0); Mean Corpuscular Volume 87.3 fL (80.0-100.0); Mean Platelet Volume 7.6 fL (7.0-11.0); Mono # (Auto) 0.7 th/mm3 (0.0-0.9); Mono % (Auto) 7.1 % (0.0-8.0); Neut # (Auto) 7.9 th/mm3 (1.8-7.7); Neut % (Auto) 86.3 % (16.0-70.0); Platelet Count 49 th/mm3 (150-450); Red Blood Count 2.45 mil/mm3 (4.00-5.30); Red Cell Distribution Width 16.1 % (11.6-17.2); White Blood Count 9.2 th/mm3 (4.0-11.0)
[2018-03-13 16:36] LABS: Lymphocytes 5 % (9-44); Monocytes 3 % (0-8); Tallied Nucleated RBC 6 (0-0)
[2018-03-13 16:37] LABS: Platelet Morphology Normal (Normal)
[2018-03-13] MEDS: Multivitamin Inj 10 ML, Thiamine Inj 100 MG, Folic Acid Inj 1 MG in Sodium Chlor 0.9% I... IV.SIG SCH (17:01)
--- NOTE | 2018-03-13 17:58 | P.PNONC ---
Subjective Interval history: Critically ill, intubated and sedated. Events last 24 hours noted, bleeding with decrease hemoglobin. Now bleeding appear to be resolved. Not certain if due to cryoprecipitate or just mere pressure. Bleeding also from hemorrhoids that were banded. Objective Vital Signs/Intake & Output: Vital Signs 03/12/18 19:00 03/12/18 19:20 03/12/18 20:00 Temperature 99.4 F Pulse Rate 97 H 96 H 102 H Respiratory Rate 13 Blood Pressure 83/61 L 80/60 L Pulse Oximetry 97 03/12/18 21:30 03/12/18 22:45 03/12/18 22:55 Temperature 99.8 F H Pulse Rate 100 H Respiratory Rate 13 15 15 Blood Pressure 100/71 Pulse Oximetry 96 97 03/12/18 23:00 03/12/18 23:13 03/13/18 00:10 Temperature 99.8 F H Pulse Rate 102 H 98 H 96 H Respiratory Rate 16 Blood Pressure 107/78 78/58 L Pulse Oximetry 96 03/13/18 00:26 03/13/18 01:00 03/13/18 01:31 Temperature 99.7 F H 99.2 F Pulse Rate 97 H 97 H Respiratory Rate 16 15 14 Blood Pressure 90/65 L 107/72 Pulse Oximetry 95 95 03/13/18 01:47 03/13/18 03:00 03/13/18 03:07 Temperature 99.1 F 98.8 F Pulse Rate 91 H 85 86 Respiratory Rate 12 14 Blood Pressure 106/71 114/78 Pulse Oximetry 97 95 03/13/18 04:00 03/13/18 04:33 03/13/18 07:00 Temperature 99 F Pulse Rate 96 H 86 Respiratory Rate 13 14 Blood Pressure 114/82 109/79 Pulse Oximetry 96 95 03/13/18 08:00 03/13/18 08:05 03/13/18 09:30 Temperature 99.3 F Pulse Rate 77 89 Respiratory Rate 15 18 Blood Pressure 90/69 L 85/63 L Pulse Oximetry 95 03/13/18 10:35 03/13/18 11:00 03/13/18 11:20 Temperature 99.4 F 99.3 F 99.3 F Pulse Rate 88 82 82 Respiratory Rate 20 17 17 Blood Pressure 79/58 L 92/65 L 88/62 L Pulse Oximetry 93 L 96 03/13/18 11:30 03/13/18 12:00 03/13/18 14:00 Temperature Pulse Rate 77 Respiratory Rate 15 18 Blood Pressure 93/66 L Pulse Oximetry 96 95 03/13/18 15:00 03/13/18 16:00 03/13/18 16:05 Temperature 99.8 F H Pulse Rate 73 77 Respiratory Rate 19 16 Blood Pressure 82/59 L 84/61 L Pulse Oximetry 96 93 L Intake & Output 03/12/18 03/13/18 03/13/18 18:59 06:59 18:59 Intake Total 4611 / 4611 3408 / 3408 1060 / 1060 Output Total 5575 / 5575 1420 / 1420 Balance -964 / -964 1987 1060 / 1060 Weight 70.5 kg Intake: IV 2417 / 2417 1719 / 1719 1060 / 1060 Cordarone Inj 450 MG In D5W Inj 250 / 250 293 / 293 250 / 250 241 ML @ 1 MG/MIN 33.33 mls/hr IV.CONT TITRATE PRN Rx#: [id number] EPINEPHrine (1:1000) Inj 4 MG 250 / 250 In D5W Inj 246 ML @ 4 MCG/MIN 15 mls/hr IV.CONT TITRATE PRN Rx#:[id number] Versed Inj 50 mg In 50 ml @ 2 100 / 100 50 / 50 50 / 50 MG/HR 2 mls/hr IV.CONT TITRATE PRN Rx#:[id number] Primacor Inj 20 MG In NS Inj 80 100 / 100 100 / 100 ML @ 0.375 MCG/KG/MIN 6.86 mls /hr IV.CONT .[id number] BRENDA Rx#: [id number] Pitressin Inj 40 UNIT In D5W 276 / 276 Inj 98 ML @ 0.01 UNITS/MIN 1.5 mls/hr IV.CONT TITRATE PRN Rx#: [id number] Calcium Chloride Inj 1 GM In NS 110 / 110 Inj 100 ML @ 110 mls/hr IV.SIG ONCE ONE Rx#:[id number] Magnesium Sulfate Inj 2 GM In 100 / 100 NS Inj 96 ML @ 50 mls/hr IV.SIG UNSCH PRN Rx#:[id number] MVI-12 Inj 10 ML Thiamine Inj 500 / 500 100 MG Folvite Inj 1 MG In NS Inj 500 ML @ 125 mls/hr IV.SIG Q24H [facility] Rx#:[id number] Levophed-Dextrose 4 mg/250 ml 750 / 750 500 / 500 Drip 4 mg In 250 ml @ 2 MCG/MIN 7.5 mls/hr IV.SIG TITRATE PRN Rx#:[id number] Vitamin K Inj 10 MG In D5W Inj 51 / 51 50 ML @ 102 mls/hr IV.SIG ONCE ONE Rx#:[id number] Zosyn 3.375 GM Premix 50 ML @ 100 / 100 100 / 100 50 / 50 100 mls/hr IV.SIG Q6H [facility] Rx#: [id number] KCl 40 mEq Premix Inj 40 meq In 200 / 200 300 / 300 100 ml @ 25 mls/hr IV.SIG ONCE ONE Rx#:[id number] Vancomycin Inj 1,000 MG In NS 250 / 250 Inj 250 ML @ 250 mls/hr IV.SIG ONCE ONE Rx#:[id number] fentaNYL 10 mcg/mL Premix Drip 250 / 250 2,500 mcg In 250 ml @ 50 MCG/HR 5 mls/hr IV.SIG TITRATE PRN Rx #:[id number] Flolan (30,000 ng/mL) Neb 62.5 100 / 100 ML In NS Inj 37.5 ML @ 8 mls/hr NEB Q8H [facility] Rx#:[id number] Tube Irrigant 520 / 520 100 / 100 Other 250 / 250 500 / 500 Rbc As-3 Leukoreduced Unit 500 / 500 [id number] Intake (Blood Product) Amt 1424 / 1424 1089 / 1089 0 / 0 Plasma Thawed 5 Day Acda Unit 0 / 0 220 / 220 [id number] Plasma Thawed 5 Day Acda Unit 224 / 224 [id number] Plasma Thawed 5 Day Cp2d Unit 0 / 0 [id number] Plasma Thawed 5 Day Cp2d Unit 280 / 280 [id number] Plt Pheresis B Leukoreduced 0 / 0 Unit [id number] Plt Pheresis C Leukoreduced 189 / 189 Unit [id number] Rbc As-3 Leukoreduced Unit 0 / 0 [id number] Rbc As-3 Leukoreduced Unit 400 / 400 [id number] Rbc As-3 Leukoreduced Unit 400 / 400 [id number] Rbc As-3 Leukoreduced Unit 400 / 400 [id number] Rbc As-3 Leukoreduced Unit 400 / 400 [id number] Output: Urine Amount (Catheter) 2303 / 6867 1420 / 1420 Indwelling Urethral Catheter 0221 / 6028 1420 / 1420 Other: Other Intake Source Saline Solution Plasma Thawed 5 Day Cp2d Unit Saline Solution [id number] Plt Pheresis B Leukoreduced Saline Solution Unit [id number] Rbc As-3 Leukoreduced Unit Saline Solution [id number] Rbc As-3 Leukoreduced Unit Saline Solution [id number] Rbc As-3 Leukoreduced Unit Saline Solution [id number] Rbc As-3 Leukoreduced Unit Saline Solution [id number] Rbc As-3 Leukoreduced Unit Saline Solution [id number] Date of Last Bowel Movement 03/12/18 03/13/18 # Incontinent Bowel Movements 2 1 Result Diagrams: 03/13/18 11:55 03/13/18 11:55 Laboratory Results: Laboratory Results - last 24 hr 03/12/18 03/12/18 03/12/18 10:19 16:00 16:00 WBC RBC Hgb Hct MCV MCH MCHC RDW Plt Count MPV Prelim Diff (Auto) Neut % (Auto) Lymph % (Auto) [facility] % (Auto) Eos % (Auto) Baso % (Auto) Neut # (Auto) Lymph # (Auto) [facility] # (Auto) Eos # (Auto) Baso # (Auto) WBC Differential Seg Neuts % (Manual) Band Neuts % (Manual) Lymphocytes % (Manual) Monocytes % (Manual) Abs Neuts (Manual) Nucleated RBCs/100 WBC Differential Comment Platelet Estimate Platelet Morphology Haptoglobin PT INR APTT Puncture Site Patient Temperature O2 Saturation ABG pH ABG pCO2 ABG pO2 ABG HCO3 ABG O2 Content ABG Base Excess ABG Methemoglobin Hemoglobin Carboxyhemoglobin O2 Delivery Device Vent Setting Inspired O2 Critical Value Sodium Potassium Chloride Carbon Dioxide Anion Gap BUN Creatinine Estimated GFR POC Glucose Random Glucose Lactic Acid Calcium Prot Corrected Calcium Phosphorus Magnesium Total Bilirubin AST ALT Alkaline Phosphatase Lactate Dehydrogenase Total Protein Albumin Blood Type Antibody Screen MTS Gel Crossmatch See Detail Blood Bank Comment Bld Prod Order Comment 03/12/18 03/12/18 03/12/18 16:50 16:50 20:53 WBC RBC Hgb Hct MCV MCH MCHC RDW Plt Count MPV Prelim Diff (Auto) Neut % (Auto) Lymph % (Auto) [facility] % (Auto) Eos % (Auto) Baso % (Auto) Neut # (Auto) Lymph # (Auto) [facility] # (Auto) Eos # (Auto) Baso # (Auto) WBC Differential Seg Neuts % (Manual) Band Neuts % (Manual) Lymphocytes % (Manual) Monocytes % (Manual) Abs Neuts (Manual) Nucleated RBCs/100 WBC Differential Comment Platelet Estimate Platelet Morphology Haptoglobin 26 L PT INR APTT Puncture Site Patient Temperature O2 Saturation ABG pH ABG pCO2 ABG pO2 ABG HCO3 ABG O2 Content ABG Base Excess ABG Methemoglobin Hemoglobin Carboxyhemoglobin O2 Delivery Device Vent Setting Inspired O2 Critical Value Sodium 133 L Potassium 3.9 Chloride 91 L Carbon Dioxide 32.2 H Anion Gap 10 BUN 31 H Creatinine 1.57 H Estimated GFR 34 L POC Glucose 310 H Random Glucose 253 H Lactic Acid Calcium 6.3 L* D Prot Corrected Calcium 7.8 L Phosphorus Magnesium Total Bilirubin 6.6 H AST 227 H ALT 69 H Alkaline Phosphatase 56 Lactate Dehydrogenase 485 H Total Protein 4.2 L D Albumin 2.2 L D Blood Type Antibody Screen MTS Gel Crossmatch Blood Bank Comment Bld Prod Order Comment 03/12/18 03/13/18 03/13/18 22:44 04:06 04:06 WBC 11.3 H RBC 2.43 L Hgb 7.4 L Hct 20.8 L* MCV 85.7 MCH 30.7 MCHC 35.8 RDW 15.9 D Plt Count 57 L MPV 8.2 Prelim Diff (Auto) Neut % (Auto) Lymph % (Auto) [facility] % (Auto) Eos % (Auto) Baso % (Auto) Neut # (Auto) Lymph # (Auto) [facility] # (Auto) Eos # (Auto) Baso # (Auto) WBC Differential Seg Neuts % (Manual) Band Neuts % (Manual) Lymphocytes % (Manual) Monocytes % (Manual) Abs Neuts (Manual) Nucleated RBCs/100 WBC Differential Comment Platelet Estimate Platelet Morphology Haptoglobin PT 15.8 H INR 1.6 APTT Puncture Site Patient Temperature O2 Saturation ABG pH ABG pCO2 ABG pO2 ABG HCO3 ABG O2 Content ABG Base Excess ABG Methemoglobin Hemoglobin Carboxyhemoglobin O2 Delivery Device Vent Setting Inspired O2 Critical Value Sodium Potassium Chloride Carbon Dioxide Anion Gap BUN Creatinine Estimated GFR POC Glucose Random Glucose Lactic Acid 3.5 H Calcium Prot Corrected Calcium Phosphorus Magnesium Total Bilirubin AST ALT Alkaline Phosphatase Lactate Dehydrogenase Total Protein Albumin Blood Type Antibody Screen ViralGains Gel Crossmatch Blood Bank Comment Bld Prod Order Comment 03/13/18 03/13/18 03/13/18 04:06 04:06 04:10 WBC RBC Hgb Hct MCV MCH MCHC RDW Plt Count MPV Prelim Diff (Auto) Neut % (Auto) Lymph % (Auto) [facility] % (Auto) Eos % (Auto) Baso % (Auto) Neut # (Auto) Lymph # (Auto) [facility] # (Auto) Eos # (Auto) Baso # (Auto) WBC Differential Seg Neuts % (Manual) Band Neuts % (Manual) Lymphocytes % (Manual) Monocytes % (Manual) Abs Neuts (Manual) Nucleated RBCs/100 WBC Differential Comment Platelet Estimate Platelet Morphology Haptoglobin PT INR APTT 57.6 H Puncture Site Art line Patient Temperature 98.6 O2 Saturation 96 ABG pH 7.49 H ABG pCO2 42 ABG pO2 140 H ABG HCO3 31 H ABG O2 Content 11.1 L ABG Base Excess 7.6 H ABG Methemoglobin 1.7 Hemoglobin 8.0 L Carboxyhemoglobin 1.5 O2 Delivery Device Ventilator Vent Setting Prvc/ac Inspired O2 50 Critical Value No Sodium 133 L Potassium 2.9 L* D Chloride 87 L Carbon Dioxide 33.3 H Anion Gap 13 BUN 32 H Creatinine 1.58 H Estimated GFR 34 L POC Glucose Random Glucose 248 H Lactic Acid Calcium 6.4 L* Prot Corrected Calcium 7.6 L Phosphorus 3.5 Magnesium 1.5 D Total Bilirubin 6.9 H AST 193 H ALT 71 H Alkaline Phosphatase 62 Lactate Dehydrogenase Total Protein 4.7 L Albumin 2.5 L Blood Type Antibody Screen ViralGains Gel Multichanneltch Blood Bank Comment Bld Prod Order Comment 03/13/18 03/13/18 03/13/18 08:19 08:19 11:55 WBC RBC Hgb Hct MCV MCH MCHC RDW Plt Count MPV Prelim Diff (Auto) Neut % (Auto) Lymph % (Auto) [facility] % (Auto) Eos % (Auto) Baso % (Auto) Neut # (Auto) Lymph # (Auto) [facility] # (Auto) Eos # (Auto) Baso # (Auto) WBC Differential Seg Neuts % (Manual) Band Neuts % (Manual) Lymphocytes % (Manual) Monocytes % (Manual) Abs Neuts (Manual) Nucleated RBCs/100 WBC Differential Comment Platelet Estimate Platelet Morphology Haptoglobin PT 14.4 H INR 1.4 APTT Puncture Site Patient Temperature O2 Saturation ABG pH ABG pCO2 ABG pO2 ABG HCO3 ABG O2 Content ABG Base Excess ABG Methemoglobin Hemoglobin Carboxyhemoglobin O2 Delivery Device Vent Setting Inspired O2 Critical Value Sodium Potassium Chloride Carbon Dioxide Anion Gap BUN Creatinine Estimated GFR POC Glucose Random Glucose Lactic Acid 2.2 H Calcium Prot Corrected Calcium Phosphorus Magnesium Total Bilirubin AST ALT Alkaline Phosphatase Lactate Dehydrogenase Total Protein Albumin Blood Type A Positive Antibody Screen Negative MTS Gel Crossmatch See Detail Blood Bank Comment Bld Prod Order Comment 03/13/18 03/13/18 03/13/18 11:55 11:55 12:38 WBC 9.2 RBC 2.45 L Hgb 7.6 L Hct 21.4 L MCV 87.3 MCH 31.0 MCHC 35.6 RDW 16.1 Plt Count 49 L MPV 7.6 Prelim Diff (Auto) Slide review pending Neut % (Auto) 86.3 H Lymph % (Auto) 5.3 L [facility] % (Auto) 7.1 Eos % (Auto) 0.1 Baso % (Auto) 1.2 Neut # (Auto) 7.9 H Lymph # (Auto) 0.5 L [facility] # (Auto) 0.7 Eos # (Auto) 0.0 Baso # (Auto) 0.1 WBC Differential Manual diff final Seg Neuts % (Manual) 77 H Band Neuts % (Manual) 15 H Lymphocytes % (Manual) 5 L Monocytes % (Manual) 3 Abs Neuts (Manual) 8.5 H Nucleated RBCs/100 WBC 6 H Differential Comment . Platelet Estimate Low L Platelet Morphology Normal Haptoglobin PT INR APTT Puncture Site Patient Temperature O2 Saturation ABG pH ABG pCO2 ABG pO2 ABG HCO3 ABG O2 Content ABG Base Excess ABG Methemoglobin Hemoglobin Carboxyhemoglobin O2 Delivery Device Vent Setting Inspired O2 Critical Value Sodium 132 L Potassium 3.4 L Chloride 87 L Carbon Dioxide 32.4 H Anion Gap 13 BUN 32 H Creatinine 1.46 H Estimated GFR 37 L POC Glucose 253 H Random Glucose 244 H Lactic Acid Calcium 6.7 L* Prot Corrected Calcium 7.7 L Phosphorus Magnesium Total Bilirubin 6.4 H AST 171 H ALT 63 H Alkaline Phosphatase 66 Lactate Dehydrogenase Total Protein 5.1 L Albumin 2.7 L Blood Type Antibody Screen MTS Gel Crossmatch Blood Bank Comment Bld Prod Order Comment Culture Results: Microbiology 03/12/18 04:15 Gram Stain - Final Sputum - Oral Tracheal Aspirate Sputum Culture - Preliminary Heavy growth normal respiratory tierney at 24 hours 03/11/18 20:06 Aerobic Blood Culture - Preliminary Blood - Peripheral No growth in 2 days Anaerobic Blood Culture - Preliminary No growth in 2 days 03/11/18 20:00 Aerobic Blood Culture - Preliminary Blood - Peripheral No growth in 2 days Anaerobic Blood Culture - Preliminary No growth in 2 days 03/10/18 07:28 Aerobic Blood Culture - Preliminary Blood - Peripheral No growth in 3 days Anaerobic Blood Culture - Preliminary No growth in 3 days 03/10/18 07:22 Aerobic Blood Culture - Preliminary Blood - Peripheral No growth in 3 days Anaerobic Blood Culture - Preliminary No growth in 3 days 03/11/18 15:55 Urine Culture - Final Catheterized Urine No growth in 48 hours 03/10/18 09:00 Urine Culture - Final Catheterized Urine No growth in 48 hours Medications: Active Medications Generic Name Dose Route Start Last Admin Trade Name Freq PRN Reason Stop Dose Admin Albuterol 2.5 mg 03/09/18 09:34 03/09/18 23:06 Albuterol Neb (Prn) NEB 2.5 mg Q2HR NEB PRN Administration DYSPNEA Budesonide/Formoterol Fumarate 2 puff 03/07/18 21:00 03/13/18 08:37 Symbicort 160/4.5 Mcg Inh INH Not Given BID BRENDA Cholestyramine Resin 4 gm 03/05/18 21:00 03/13/18 08:36 Questran 4 Gm Pkt PO Not Given BID BRENDA Gelatin 1 foam 03/11/18 17:00 03/12/18 14:48 Gelfoam 12 Mm/7 Mm Topical TOPICAL 1 foam Q1H PRN Administration BLEEDING Magnesium Sulfate Inj 2 gm/ 100 mls @ 50 mls/hr 03/03/18 13:19 03/13/18 15:43 Sodium Chloride IV.SIG Infused UNSCH PRN Infusion For Magnesium 1.2 - 1.6 mg/dL Potassium Chloride 40 meq in 100 mls @ 25 mls/hr 03/03/18 13:19 03/11/18 22: 14 Kcl 40 Meq Premix Inj IV.SIG Infused UNSCH PRN Infusion For Potassium 3.3 - 3.5 mEq/L Potassium Chloride 20 meq in 100 mls @ 50 mls/hr 03/03/18 13:19 03/06/18 13: 22 Kcl 20 Meq Premix Inj IV.SIG Infused Q2H PRN Infusion For Potassium 2.8 - 3.2 mEq/L Magnesium Sulfate Inj 4 gm/ 100 mls @ 50 mls/hr 03/03/18 13:19 03/07/18 03:38 Sodium Chloride IV.SIG Infused UNSCH PRN Infusion For Magnesium 0.9 - 1.1 mg/dL Potassium Chloride 40 meq in 100 mls @ 25 mls/hr 03/03/18 13:19 03/13/18 15: 43 Kcl 40 Meq Premix Inj IV.SIG Infused Q2H PRN Infusion For Potassium 2.8 - 3.2 mEq/L Norepinephrine Bitartrate 4 mg in 250 mls @ 7.5 mls/hr 03/07/18 11:37 07:41 Levophed-Dextrose 4 Mg/250 Ml Drip IV.SIG 8 mcg/min TITRATE PRN 30 mls/hr Per Protocol Administration Protocol 2 MCG/MIN Piperacillin/Tazobactam/Dextrose 50 mls @ 100 mls/hr 03/07/18 18:00 03/13/18 17:01 Zosyn 3.375 Gm Premix IV.SIG 100 mls/hr Q6H [facility]ENDA Administration Epinephrine HCl 4 mg/ Dextrose 250 mls @ 15 mls/hr 03/10/18 09:26 03/12/18 14 :49 IV.CONT Infused TITRATE PRN Titration See protocol Protocol 4 MCG/MIN Fentanyl 2,500 mcg in 250 mls @ 5 mls/hr 03/10/18 09:28 03/12/18 14:54 Fentanyl 10 Mcg/Ml Premix Drip IV.SIG 100 mcg/hr TITRATE PRN 10 mls/hr Per Protocol Administration Protocol 50 MCG/HR Midazolam HCl 50 mg in 50 mls @ 2 mls/hr 03/10/18 09:28 03/13/18 11:00 Versed Inj IV.CONT 3 mg/hr TITRATE PRN 3 mls/hr Per Protocol Administration Protocol 2 MG/HR Vasopressin 40 unit/ Dextrose 100 mls @ 1.5 mls/hr 03/10/18 21:00 03/13/18 03 :49 IV.CONT 0.04 units/min TITRATE PRN 6 mls/hr Per Protocol Administration Protocol 0.01 UNITS/MIN Milrinone Lactate 20 mg/ 100 mls @ 6.86 mls/hr 03/10/18 23:00 03/13/18 08:32 Sodium Chloride IV.CONT 0.375 mcg/kg/min .[id number] BRENDA 6.86 mls/hr Administration 0.375 MCG/KG/MIN Multivitamins 10 ml/ Thiamine 511.2 mls @ 125 mls/hr 03/11/18 18:00 03/13/18 17:01 HCl 100 mg/ Folic Acid 1 mg/ IV.SIG 03/13/18 22:06 125 mls/hr Sodium Chloride Q24H [facility] Administration Amiodarone HCl 450 mg/ 250 mls @ 33.33 mls/hr 03/11/18 20:00 03/13/18 10:50 Dextrose IV.CONT 0.5 mg/min TITRATE PRN 16.66 mls/hr Per Protocol Administration Protocol 1 MG/MIN Sodium Chloride 250 mls @ 15 mls/hr 03/13/18 08:30 03/13/18 09:01 Ns Inj IV.SIG 03/14/18 01:09 15 mls/hr ONCE ONE Administration Insulin Aspart 0 unit 03/02/18 17:00 03/13/18 12:44 Novolog Insulin Correctional Sugar Inj SQ 5 unit ACHS BRENDA Administration Protocol Insulin Detemir 10 unit 03/12/18 12:00 03/13/18 08:59 Levemir Inj SQ 10 unit BID BRENDA Administration Levothyroxine Sodium 25 mcg 03/10/18 06:00 03/13/18 05:47 Synthroid PO 25 mcg DAILY@0600 BREN[facility] Administration Methylprednisolone Sodium Succinate 60 mg 03/07/18 16:30 03/13/18 16:19 Solumedrol Inj IV.PUSH 60 mg Q12H [facility] Administration Metronidazole 500 mg 03/08/18 12:00 03/13/18 15:01 Flagyl PO Not Given Q8HR [facility] Morphine Sulfate 2 mg 03/03/18 11:25 03/09/18 23:53 Morphine Inj IV.PUSH 2 mg Q4H PRN Administration PAIN SCALE 1 TO 10 Pantoprazole Sodium 40 mg 03/11/18 10:00 03/13/18 08:41 Protonix Inj IV.PUSH 40 mg DAILY [facility]ENDA Administration Potassium Phosphate 2,000 mg 03/03/18 13:19 03/03/18 14:17 K-Phos Original PO 2,000 mg Q4H PRN Administration Phosphorus Less Than 2.5 mg/dL Promethazine HCl 25 mg 03/03/18 11:23 03/09/18 16:03 Phenergan PO 25 mg Q4H PRN Administration NAUSEA OR VOMITING Sodium Chloride 2 ml 03/10/18 21:00 03/13/18 08:42 Ns Flush IV.FLUSH 2 ml BID BRENDA Administration Objective Remarks: GENERAL: Intubated and sedated, well-developed patient. SKIN: Warm and dry. HEAD: Normocephalic. EYES: No scleral icterus. No injection or drainage. NECK: Supple, trachea midline. No JVD or lymphadenopathy. LYMPHATIC: No adenopathy. R neck central line. CARDIOVASCULAR: Regular rate and rhythm without murmurs. RESPIRATORY: Breath sounds equal bilaterally. No accessory muscle use. GASTROINTESTINAL: Abdomen soft, non-tender, nondistended. EXTREMITIES: R leg more prominent than L. MUSCULOSKELETAL: R groin sheath in place, no bleeding now. R leg ischemia. 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 Her last cycle of chemotherapy was July 2016. She was initially admitted for diarrhea. She rapidly developed cardiogenic shock and required support in the ICU. 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 She underwent a left heart cardiac catheterization which showed clean coronaries. She had Impella placed for cardiac support. She had catheter site bleeding, rectal bleeding, anemia and coagulopathy. Her course is further complicated by coagulopathy for which hematology oncology was reconsulted. She remains critically ill. Discussed w/ her nurse concern for acquired von Willebrand deficiency, producing the symptoms last 24 hours. Academic question, we will check VWF profile. Empirically I would treat fibrinogen <100 with cryoprecipitate which contains von Willebrand factor. 1. Follow pt/ptt/fibrinogen 2. Transfuse cryoprecipitate for fibrinogen <100 3. Keep hgb> 7.0 4. Monitor platelet, new thrombocytopenia from consumption, recent bleed. (1) NHL (non-Hodgkin's lymphoma) Qualifiers: Non-Hodgkin lymphoma type: B-cell B-cell lymphoma type: diffuse large B-cell Lymphoma site: intra-abdominal nodes Qualified Code(s): C83.33 - Diffuse large B-cell lymphoma, intra-abdominal lymph nodes
[2018-03-13] MEDS: fentaNYL 10 mcg/mL Premix Drip 2,500 MCG/250 ML BAG IV.SIG PRN (20:44)
[2018-03-14] MEDS: Piperacil/Tazo 3.375 GM Premix 50 ML IV.SIG SCH ×4 (00:56→17:52)
[2018-03-14] MEDS: Midazolam 50 MG/50 ML Inj 50 MG/50 ML BAG IV.CONT PRN ×2 (00:57→17:24)
[2018-03-14] MEDS: Milrinone Inj 20 MG in Sodium Chlor 0.9% Inj 80 ML IV.CONT SCH ×2 (01:02→16:34)
[2018-03-14] MEDS: Hydrocortisone/Pramoxine Foam 10 GM Can RECTAL SCH ×3 (01:09→16:35)
[2018-03-14 05:00] LABS: Mean Corpuscular Hemoglobin 31.9 pg (27.0-34.0); Mean Corpuscular Volume 88.7 fL (80.0-100.0); Mean Platelet Volume 7.7 fL (7.0-11.0); Platelet Count 30 th/mm3 (150-450); Red Blood Count 2.17 mil/mm3 (4.00-5.30); Red Cell Distribution Width 15.7 % (11.6-17.2)
[2018-03-14 05:14] LABS: Hematocrit 19.2 % (35.0-46.0); Hemoglobin 6.9 gm/dL (11.6-15.3)
[2018-03-14 05:17] LABS: Activated Partial Thrombo Time 53.5 sec (24.3-30.1); INR 1.5 Ratio; Prothrombin Time 14.9 sec (9.8-11.6)
[2018-03-14 05:20] LABS: Alanine Aminotransferase 73 U/L (10-53); Albumin 2.4 g/dL (3.4-5.0); Alkaline Phosphatase 63 U/L (45-117); Anion Gap 13 meq/L (5-15); Aspartate Aminotransferase 204 U/L (15-37); Blood Urea Nitrogen 32 mg/dL (7-18); Calcium 7.8 mg/dL (8.5-10.1); Carbon Dioxide 32.2 meq/L (21.0-32.0); Chloride 89 meq/L (98-107); Glomerular Filtration Rate 40 mL/min (>89); Glucose,Random 175 mg/dL (74-106); Lactate Dehydrogenase 528 U/L (84-246); Magnesium 1.7 mg/dL (1.5-2.5); Phosphorus 2.9 mg/dL (2.5-4.9); Sodium 134 meq/L (136-145); Total Protein 4.9 g/dL (6.4-8.2)
[2018-03-14 05:23] LABS: Potassium 2.9 meq/L (3.5-5.1)
[2018-03-14] MEDS: MethylPREDNISolone Sod Succinate Inj 125 MG/2 ML Vial IV.PUSH SCH ×2 (05:42→16:13)
[2018-03-14] MEDS: Potassium Chlor 40 mEq Premix 40 MEQ/100 ML PIGGYBACK IV.SIG PRN (05:43)
[2018-03-14] MEDS: metroNIDAZOLE 500 MG Tablet PO SCH ×3 (05:59→22:27)
--- NOTE | 2018-03-14 07:47 | P.PNVS ---
Subjective Subjective/Hospital Course: Pt remains guarded although slightly lower pressor requirement Impella via R groin access persists and necessary Objective Vital Signs / I&O: Vital Signs 03/13/18 08:00 03/13/18 08:05 03/13/18 09:30 Temperature 99.3 F Pulse Rate 77 89 Respiratory Rate 15 18 Blood Pressure 90/69 L 85/63 L Pulse Oximetry 95 03/13/18 10:35 03/13/18 11:00 03/13/18 11:20 Temperature 99.4 F 99.3 F 99.3 F Pulse Rate 88 82 82 Respiratory Rate 20 17 17 Blood Pressure 79/58 L 92/65 L 88/62 L Pulse Oximetry 93 L 96 03/13/18 11:30 03/13/18 12:00 03/13/18 14:00 Temperature Pulse Rate 77 Respiratory Rate 15 18 Blood Pressure 93/66 L Pulse Oximetry 96 95 03/13/18 15:00 03/13/18 16:00 03/13/18 16:05 Temperature 99.8 F H Pulse Rate 73 77 Respiratory Rate 19 16 Blood Pressure 82/59 L 84/61 L Pulse Oximetry 96 93 L 03/13/18 19:00 03/13/18 19:15 03/13/18 20:00 Temperature 99.5 F Pulse Rate 86 84 83 Respiratory Rate 13 Blood Pressure 86/62 L 82/60 L Pulse Oximetry 90 L 03/13/18 20:15 03/13/18 23:00 03/14/18 00:00 Temperature 98.8 F Pulse Rate 72 83 Respiratory Rate 18 12 Blood Pressure 84/60 L 80/58 L Pulse Oximetry 97 97 03/14/18 00:10 03/14/18 03:00 03/14/18 03:15 Temperature 98.4 F Pulse Rate 86 83 Respiratory Rate 12 17 Blood Pressure 94/64 L Pulse Oximetry 97 95 03/14/18 03:43 03/14/18 04:00 03/14/18 06:25 Temperature 99.1 F Pulse Rate 86 79 Respiratory Rate 19 17 Blood Pressure 83/57 L 98/61 L Pulse Oximetry 95 96 03/14/18 06:53 03/14/18 06:57 Temperature 98.9 F 99 F Pulse Rate 88 89 Respiratory Rate 20 18 Blood Pressure 85/53 L 85/54 L Pulse Oximetry 95 Intake & Output 03/13/18 03/14/18 03/14/18 18:59 06:59 18:59 Intake Total 2068 / 2068 1615.3 / 1615.3 Output Total 2650 / 2650 1370 / 1370 Balance -582 / -582 245.3 / 245.3 Weight 71 kg Intake: IV 1260 / 1260 1335.3 / 1335.3 Cordarone Inj 450 MG In D5W Inj 250 / 250 241 ML @ 1 MG/MIN 33.33 mls/hr IV.CONT TITRATE PRN Rx#: [id number] Versed Inj 50 mg In 50 ml @ 2 50 / 50 87.3 / 87.3 MG/HR 2 mls/hr IV.CONT TITRATE PRN Rx#:[id number] Primacor Inj 20 MG In NS Inj 80 100 / 100 98 / 98 ML @ 0.375 MCG/KG/MIN 6.86 mls /hr IV.CONT .[id number] BRENDA Rx#: [id number] Pitressin Inj 40 UNIT In D5W 100 / 100 110 / 110 Inj 98 ML @ 0.01 UNITS/MIN 1.5 mls/hr IV.CONT TITRATE PRN Rx#: [id number] Calcium Chloride Inj 1 GM In NS 110 / 110 Inj 100 ML @ 110 mls/hr IV.SIG ONCE ONE Rx#:[id number] Magnesium Sulfate Inj 2 GM In 100 / 100 NS Inj 96 ML @ 50 mls/hr IV.SIG UNSCH PRN Rx#:[id number] MVI-12 Inj 10 ML Thiamine Inj 540 / 540 100 MG Folvite Inj 1 MG In NS Inj 500 ML @ 125 mls/hr IV.SIG Q24H BRENDA Rx#:[id number] Zosyn 3.375 GM Premix 50 ML @ 50 / 50 100 / 100 100 mls/hr IV.SIG Q6H BRENDA Rx#: [id number] KCl 40 mEq Premix Inj 40 meq In 300 / 300 100 ml @ 25 mls/hr IV.SIG ONCE ONE Rx#:[id number] NS Inj 250 ML @ 15 mls/hr IV. 50 / 50 SIG ONCE ONE Rx#:[id number] fentaNYL 10 mcg/mL Premix Drip 250 / 250 2,500 mcg In 250 ml @ 50 MCG/HR 5 mls/hr IV.SIG TITRATE PRN Rx #:[id number] Flolan (30,000 ng/mL) Neb 37.5 100 / 100 ML In NS Inj 62.5 ML @ 8 mls/hr NEB Q8H [facility] Rx#:[id number] Other 808 / 808 Intake (Blood Product) Amt 0 / 0 280 / 280 Plasma Thawed 5 Day Cp2d Unit 0 / 0 [id number] Plt Pheresis A Leukoreduced 280 / 280 Unit [id number] Plt Pheresis B Leukoreduced 0 / 0 Unit [id number] Rbc As-3 Leukoreduced Unit 0 / 0 [id number] Output: Urine Amount (Catheter) 2650 / 2650 1370 / 1370 Indwelling Urethral Catheter 2650 / 2650 1370 / 1370 Other: Other Intake Source Saline Solution Plasma Thawed 5 Day Cp2d Unit Saline Solution [id number] Plt Pheresis B Leukoreduced Saline Solution Unit [id number] Rbc As-3 Leukoreduced Unit Saline Solution [id number] Date of Last Bowel Movement 03/13/18 03/13/18 Physical Exam: sedated, 2 pressors and milrinone R groin access site Foot less marbled + DP signal today Laboratory Results - last 24 hr 03/12/18 03/12/18 03/13/18 06:10 10:19 08:19 WBC RBC Hgb Hct MCV MCH MCHC RDW Plt Count MPV Prelim Diff (Auto) Neut % (Auto) Lymph % (Auto) [place] % (Auto) Eos % (Auto) Baso % (Auto) Neut # (Auto) Lymph # (Auto) [place] # (Auto) Eos # (Auto) Baso # (Auto) WBC Differential Seg Neuts % (Manual) Band Neuts % (Manual) Lymphocytes % (Manual) Monocytes % (Manual) Abs Neuts (Manual) Nucleated RBCs/100 WBC Differential Comment Platelet Estimate Platelet Morphology PT INR APTT Fibrinogen Critical Value Yes Sodium Potassium Chloride Carbon Dioxide Anion Gap BUN Creatinine Estimated GFR POC Glucose Random Glucose Lactic Acid Calcium Prot Corrected Calcium Phosphorus Magnesium Total Bilirubin AST ALT Alkaline Phosphatase Lactate Dehydrogenase Total Protein Albumin Blood Type A Positive Antibody Screen Negative MTS Gel Crossmatch See Detail See Detail Blood Bank Comment Bld Prod Order Comment 03/13/18 03/13/18 03/13/18 08:19 11:55 11:55 WBC RBC Hgb Hct MCV MCH MCHC RDW Plt Count MPV Prelim Diff (Auto) Neut % (Auto) Lymph % (Auto) [place] % (Auto) Eos % (Auto) Baso % (Auto) Neut # (Auto) Lymph # (Auto) [place] # (Auto) Eos # (Auto) Baso # (Auto) WBC Differential Seg Neuts % (Manual) Band Neuts % (Manual) Lymphocytes % (Manual) Monocytes % (Manual) Abs Neuts (Manual) Nucleated RBCs/100 WBC Differential Comment Platelet Estimate Platelet Morphology PT 14.4 H INR 1.4 APTT Fibrinogen Critical Value Sodium 132 L Potassium 3.4 L Chloride 87 L Carbon Dioxide 32.4 H Anion Gap 13 BUN 32 H Creatinine 1.46 H Estimated GFR 37 L POC Glucose Random Glucose 244 H Lactic Acid 2.2 H Calcium 6.7 L* Prot Corrected Calcium 7.7 L Phosphorus Magnesium Total Bilirubin 6.4 H AST 171 H ALT 63 H Alkaline Phosphatase 66 Lactate Dehydrogenase Total Protein 5.1 L Albumin 2.7 L Blood Type Antibody Screen MTS Gel Crossmatch Blood Bank Comment Bld Prod Order Comment 03/13/18 03/13/18 03/13/18 11:55 12:38 17:39 WBC 9.2 RBC 2.45 L Hgb 7.6 L Hct 21.4 L MCV 87.3 MCH 31.0 MCHC 35.6 RDW 16.1 Plt Count 49 L MPV 7.6 Prelim Diff (Auto) Slide review pending Neut % (Auto) 86.3 H Lymph % (Auto) 5.3 L [place] % (Auto) 7.1 Eos % (Auto) 0.1 Baso % (Auto) 1.2 Neut # (Auto) 7.9 H Lymph # (Auto) 0.5 L [place] # (Auto) 0.7 Eos # (Auto) 0.0 Baso # (Auto) 0.1 WBC Differential Manual diff final Seg Neuts % (Manual) 77 H Band Neuts % (Manual) 15 H Lymphocytes % (Manual) 5 L Monocytes % (Manual) 3 Abs Neuts (Manual) 8.5 H Nucleated RBCs/100 WBC 6 H Differential Comment . Platelet Estimate Low L Platelet Morphology Normal PT INR APTT Fibrinogen Critical Value Sodium Potassium Chloride Carbon Dioxide Anion Gap BUN Creatinine Estimated GFR POC Glucose 253 H 177 H Random Glucose Lactic Acid Calcium Prot Corrected Calcium Phosphorus Magnesium Total Bilirubin AST ALT Alkaline Phosphatase Lactate Dehydrogenase Total Protein Albumin Blood Type Antibody Screen MTS Gel Crossmatch Blood Bank Comment d Prod Order Comment 03/13/18 03/14/18 03/14/18 21:03 04:45 04:45 WBC RBC Hgb Hct MCV MCH MCHC RDW Plt Count MPV Prelim Diff (Auto) Neut % (Auto) Lymph % (Auto) [place] % (Auto) Eos % (Auto) Baso % (Auto) Neut # (Auto) Lymph # (Auto) [place] # (Auto) Eos # (Auto) Baso # (Auto) WBC Differential Seg Neuts % (Manual) Band Neuts % (Manual) Lymphocytes % (Manual) Monocytes % (Manual) Abs Neuts (Manual) Nucleated RBCs/100 WBC Differential Comment Platelet Estimate Platelet Morphology PT 14.9 H INR 1.5 APTT 53.5 H Fibrinogen 175 L Critical Value Sodium 134 L Potassium 2.9 L* Chloride 89 L Carbon Dioxide 32.2 H Anion Gap 13 BUN 32 H Creatinine 1.36 H Estimated GFR 40 L POC Glucose 186 H Random Glucose 175 H Lactic Acid Calcium 7.8 L D Prot Corrected Calcium Phosphorus 2.9 Magnesium 1.7 Total Bilirubin 7.3 H AST 204 H ALT 73 H Alkaline Phosphatase 63 Lactate Dehydrogenase 528 H Total Protein 4.9 L Albumin 2.4 L Blood Type Antibody Screen MTS Gel Crossmatch Blood Bank Comment d Prod Order Comment 03/14/18 03/14/18 03/14/18 04:45 05:47 05:47 WBC 9.0 RBC 2.17 L Hgb 6.9 L* Hct 19.2 L* MCV 88.7 MCH 31.9 MCHC 36.0 RDW 15.7 Plt Count 30 L D MPV 7.7 Prelim Diff (Auto) Neut % (Auto) Lymph % (Auto) [place] % (Auto) Eos % (Auto) Baso % (Auto) Neut # (Auto) Lymph # (Auto) [place] # (Auto) Eos # (Auto) Baso # (Auto) WBC Differential Seg Neuts % (Manual) Band Neuts % (Manual) Lymphocytes % (Manual) Monocytes % (Manual) Abs Neuts (Manual) Nucleated RBCs/100 WBC Differential Comment Platelet Estimate Platelet Morphology PT INR APTT Fibrinogen Critical Value Sodium Potassium Chloride Carbon Dioxide Anion Gap BUN Creatinine Estimated GFR POC Glucose Random Glucose Lactic Acid Calcium Prot Corrected Calcium Phosphorus Magnesium Total Bilirubin AST ALT Alkaline Phosphatase Lactate Dehydrogenase Total Protein Albumin Blood Type Antibody Screen MTS Gel Crossmatch See Detail Blood Bank Comment Bld Prod Order Comment Microbiology 03/12/18 04:15 Gram Stain - Final Sputum - Oral Tracheal Aspirate Sputum Culture - Preliminary Heavy growth normal respiratory tierney at 24 hours 03/11/18 20:06 Aerobic Blood Culture - Preliminary Blood - Peripheral No growth in 2 days Anaerobic Blood Culture - Preliminary No growth in 2 days 03/11/18 20:00 Aerobic Blood Culture - Preliminary Blood - Peripheral No growth in 2 days Anaerobic Blood Culture - Preliminary No growth in 2 days 03/10/18 07:28 Aerobic Blood Culture - Preliminary Blood - Peripheral No growth in 3 days Anaerobic Blood Culture - Preliminary No growth in 3 days 03/10/18 07:22 Aerobic Blood Culture - Preliminary Blood - Peripheral No growth in 3 days Anaerobic Blood Culture - Preliminary No growth in 3 days 03/11/18 15:55 Urine Culture - Final Catheterized Urine No growth in 48 hours Impressions Gallbladder Ultrasound 03/12/18 00:00 CONCLUSION: 1. Cirrhotic liver with small amount of abdominal ascites. 2. Gallbladder wall thickening. Assessment and Plan - Assessment (1) Cardiogenic shock Code(s): R57.0 - Cardiogenic shock Status: Acute - Plan 58 yo female with cardiogenic shock and R groin Impella mechanical support device. R LE improved with + DP signal today 1. Continue to wean impella, drips. Not safe for revascularization. 2. Will follow. Philippe Arellano MD FACS [employer] communications electrician supervisor [facility] - Heart and V[facility] Surgery at [place] [phone]
[2018-03-14] MEDS: Insulin NovoLOG Aspart Correctional Sugar Inj SQ SCH ×4 (08:39→22:22)
[2018-03-14] MEDS: Pantoprazole Inj 40 MG Vial IV.PUSH SCH (08:40)
--- NOTE | 2018-03-14 09:03 | P.PNCA ---
Subjective Interval history: RN at bedside. Condition essentially unchanged. Pressor support slightly weaned. Physical Exam Vital signs: Vital Signs 03/13/18 09:30 03/13/18 10:35 03/13/18 11:00 Temperature 99.3 F 99.4 F 99.3 F Pulse Rate 89 88 82 Respiratory Rate 18 20 17 Blood Pressure 85/63 L 79/58 L 92/65 L Pulse Oximetry 93 L 96 03/13/18 11:20 03/13/18 11:30 03/13/18 12:00 Temperature 99.3 F Pulse Rate 82 77 Respiratory Rate 17 15 Blood Pressure 88/62 L 93/66 L Pulse Oximetry 96 03/13/18 14:00 03/13/18 15:00 03/13/18 16:00 Temperature 99.8 F H Pulse Rate 73 77 Respiratory Rate 18 19 Blood Pressure 82/59 L 84/61 L Pulse Oximetry 95 96 03/13/18 16:05 03/13/18 19:00 03/13/18 19:15 Temperature 99.5 F Pulse Rate 86 84 Respiratory Rate 16 13 Blood Pressure 86/62 L Pulse Oximetry 93 L 90 L 03/13/18 20:00 03/13/18 20:15 03/13/18 23:00 Temperature 98.8 F Pulse Rate 83 72 Respiratory Rate 18 12 Blood Pressure 82/60 L 84/60 L Pulse Oximetry 97 97 03/14/18 00:00 03/14/18 00:10 03/14/18 03:00 Temperature Pulse Rate 83 86 Respiratory Rate 12 Blood Pressure 80/58 L Pulse Oximetry 97 03/14/18 03:15 03/14/18 03:43 03/14/18 04:00 Temperature 98.4 F Pulse Rate 83 86 Respiratory Rate 17 19 Blood Pressure 94/64 L 83/57 L Pulse Oximetry 95 95 03/14/18 06:25 03/14/18 06:53 03/14/18 06:57 Temperature 99.1 F 98.9 F 99 F Pulse Rate 79 88 89 Respiratory Rate 17 20 18 Blood Pressure 98/61 L 85/53 L 85/54 L Pulse Oximetry 96 95 03/14/18 07:53 03/14/18 08:25 Temperature 99 F 98.7 F Pulse Rate 88 73 Respiratory Rate 16 16 Blood Pressure 80/54 L 82/53 L Pulse Oximetry 93 L Intake & Output 03/13/18 03/14/18 03/14/18 18:59 06:59 18:59 Intake Total 2068 / 2068 1865.3 / 1865.3 850 / 850 Output Total 2650 / 2650 1370 / 1370 Balance -582 / -582 495.3 / 495.3 850 / 850 Weight 156 lb 8.451 oz Intake: IV 1260 / 1260 1585.3 / 1585.3 50 / 50 Cordarone Inj 450 MG In D5W Inj 250 / 250 250 / 250 241 ML @ 1 MG/MIN 33.33 mls/hr IV.CONT TITRATE PRN Rx#: [id number] Versed Inj 50 mg In 50 ml @ 2 50 / 50 87.3 / 87.3 MG/HR 2 mls/hr IV.CONT TITRATE PRN Rx#:[id number] Primacor Inj 20 MG In NS Inj 80 100 / 100 98 / 98 ML @ 0.375 MCG/KG/MIN 6.86 mls /hr IV.CONT .[id number] BRENDA Rx#: [id number] Pitressin Inj 40 UNIT In D5W 100 / 100 110 / 110 Inj 98 ML @ 0.01 UNITS/MIN 1.5 mls/hr IV.CONT TITRATE PRN Rx#: [id number] Calcium Chloride Inj 1 GM In NS 110 / 110 Inj 100 ML @ 110 mls/hr IV.SIG ONCE ONE Rx#:[id number] Magnesium Sulfate Inj 2 GM In 100 / 100 NS Inj 96 ML @ 50 mls/hr IV.SIG UNSCH PRN Rx#:[id number] MVI-12 Inj 10 ML Thiamine Inj 540 / 540 100 MG Folvite Inj 1 MG In NS Inj 500 ML @ 125 mls/hr IV.SIG Q24H [facility]ENDA Rx#:[id number] Zosyn 3.375 GM Premix 50 ML @ 50 / 50 100 / 100 50 / 50 100 mls/hr IV.SIG Q6H BRENDA Rx#: [id number] KCl 40 mEq Premix Inj 40 meq In 300 / 300 100 ml @ 25 mls/hr IV.SIG ONCE ONE Rx#:[id number] NS Inj 250 ML @ 15 mls/hr IV. 50 / 50 SIG ONCE ONE Rx#:[id number] fentaNYL 10 mcg/mL Premix Drip 250 / 250 2,500 mcg In 250 ml @ 50 MCG/HR 5 mls/hr IV.SIG TITRATE PRN Rx #:[id number] Flolan (30,000 ng/mL) Neb 37.5 100 / 100 ML In NS Inj 62.5 ML @ 8 mls/hr NEB Q8H [facility] Rx#:[id number] Other 808 / 808 Intake (Blood Product) Amt 0 / 0 280 / 280 800 / 800 Plasma Thawed 5 Day Cp2d Unit 0 / 0 [id number] Plt Pheresis A Leukoreduced 280 / 280 Unit [id number] Plt Pheresis B Leukoreduced 0 / 0 Unit [id number] Rbc As-3 Leukoreduced Unit 0 / 0 [id number] Rbc As-3 Leukoreduced Unit 400 / 400 [id number] Rbc As-3 Leukoreduced Unit 400 / 400 [id number] Output: Urine Amount (Catheter) 2650 / 2650 1370 / 1370 Indwelling Urethral Catheter 2650 / 2650 1370 / 1370 Other: Other Intake Source Saline Solution Plasma Thawed 5 Day Cp2d Unit Saline Solution [id number] Plt Pheresis B Leukoreduced Saline Solution Unit [id number] Rbc As-3 Leukoreduced Unit Saline Solution [id number] Rbc As-3 Leukoreduced Unit Saline Solution [id number] Rbc As-3 Leukoreduced Unit Saline Solution [id number] Date of Last Bowel Movement 03/13/18 03/13/18 Narrative: GENERAL: Well-developed well-nourished. Currently stable. CARDIOVASCULAR: Regular rate and rhythm. No murmur appreciated. RESPIRATORY: Mechanically ventilated. Clear to auscultation. Breath sounds equal bilaterally. MUSCULOSKELETAL: No edema. Absent pulses right lower extremity, dusky appearance R foot. NEUROLOGICAL: Intubated, sedated. - Urinary Catheter Management Female External Cath placed during this visit: yes Reason for continuing: Hourly intake/output Insertion date: 03/07/18 Insertion time: 17:00 Indwelling Urethral Catheter Cath placed during this visit: yes, but has since been removed by the nurse Reason for continuing: Hourly intake/output Insertion date: 03/10/18 Insertion time: 09:30 Removal date: 03/08/18 Removal time: 09:25 Assessment and Plan - Plan 58-year-old female with no prior cardiac history being seen for new onset cardiomyopathy. The patient presented 03/02 with nausea, vomiting, diarrhea. She was found to have anemia and GI bleeding, status post clipping of bleeding hemorrhoid, status post transfusion 1 unit PRBCs 03/04. Echocardiogram showed new cardiomyopathy with EF 3035%. Assessment: Patient seen and evaluated. Chart reviewed. Agree with above. Suspected presentation with colitis and developed cytokine storm with resultant multisystem organ failure. NICM EF 10-20% Cardiogenic shock with Impella 2.5 ADHF AF, currently NSR on amiodarone gtt at 0.5mg/kg/min, cannot be anticoagulated with active bleeding, thrombocytopenia and coagulopathy Severe coagulopathy with INR 5, improving s/p ffp severe blood loss anemia, actively bleeding/oozing from RFA impella site, s/p multiple PRBC transfusions thrombocytopenia Right leg ischemia suspect due to impella cannulation cirrhosis of the liver, due to alcoholism Acute renal failure, currently oliguric Acute respiratory failure, requiring mechanical ventilation Plan: She is currently hemodynamically stable. Urine output is picking up a bit and creatinine trending down some. Bleeding is being controlled with manual pressure and transfusion of blood products. Continue diuretic therapy, she is highly net positive in volume due to prior hemodynamic collapse. Continue amiodarone gtt at 0.5mg/kg/min. Attempt to wean pressors and when the pressors can be weaned then wean Impala. Could consider transfer to tertiary care center for ecmo for R SFA temporary bypass, however with no clear terminal operations manager recovery options at this junction and ongoing goals of care discussion with the family, would hold for now. her prognosis is very poor/grave. I agree with palliative care discussions with to help guide goals of care. Patient seen and examined. Agree with above.
[2018-03-14 09:50] LABS: Baso % (Auto) 0.3 % (0.0-2.0); Hematocrit 24.7 % (35.0-46.0); Hemoglobin 8.8 gm/dL (11.6-15.3); Lymph # (Auto) 0.2 th/mm3 (1.0-4.8); Mean Corpuscular HGB Conc 35.6 % (32.0-36.0); Mean Corpuscular Hemoglobin 31.4 pg (27.0-34.0); Mean Corpuscular Volume 88.2 fL (80.0-100.0); Mean Platelet Volume 7.3 fL (7.0-11.0); Mono # (Auto) 0.5 th/mm3 (0.0-0.9); Mono % (Auto) 5.3 % (0.0-8.0); Neut # (Auto) 8.2 th/mm3 (1.8-7.7); Neut % (Auto) 92.4 % (16.0-70.0); Platelet Count 44 th/mm3 (150-450); Red Blood Count 2.81 mil/mm3 (4.00-5.30); Red Cell Distribution Width 14.9 % (11.6-17.2); White Blood Count 8.8 th/mm3 (4.0-11.0)
--- NOTE | 2018-03-14 10:29 | XR ---
EXAM DATE: 03/14/2018 10:08 AM EDT AGE/SEX: 58 years / Female INDICATIONS: Check impella placement. CLINICAL DATA: This is the patient's subsequent encounter. Patient reports that signs and symptoms h ave been present for 4 - 6 days and indicates a pain score of Nonresponsive. MEDICAL/SURGICAL HISTORY: . Diabetes. Gastroesophageal reflux disease. Hyperlipidemia. Lymphoma . Tongue tumor. Chemotherapy. . Hysterectomy. Appendectomy. Tubal ligation. Arthroplasty of knee. To nsillectomy. COMPARISON: [facility] [place], CHEST 1V SINGLE AP, 03/11/2018. . FINDINGS: The Impella ventricular assist device has retracted slightly from its previous position with the inle t portion now suspected just within the ventricular chamber. [place] catheter is present with tip i n the pulmonary outflow tract. Chest port remains in place and accessed. Endotracheal tube is stable in position with tip couple of centimeters above the cristóbal. Nasogastric tube descends into the stoma ch. There has been continued improvement in aeration with decrease in confluence of basilar and perih ilar infiltrates/edema. Small effusions persist. Cardiac contours are grossly unchanged. CONCLUSION: Impella device has retracted back slightly from its previous position Continued slight improvement in aeration Electronically signed by: Jay Nguyen MD 03/14/2018 10:28 AM EDT
[2018-03-14 10:44] LABS: Lymphocytes 3 % (9-44); Metamyelocytes 3 % (0-1); Monocytes 5 % (0-8); Myelocytes 2 % (0-0); Tallied Nucleated RBC 6 (0-0)
[2018-03-14 10:45] LABS: Platelet Morphology Normal (Normal)
--- NOTE | 2018-03-14 10:56 | P.PNCC ---
Subjective Subjective Remarks/Hospital Course: 58-year-old female with known history of hyperlipidemia, diabetes, gastroesophageal reflux, history of lymphoma who presented to the hospital initially because of abdominal pain, chronic diarrhea, nausea vomiting for 4 months. Patient is being followed by Dr. Thomas in the outpatient setting for the chronic diarrhea. She underwent endoscopy on October this year there was a stricture found and was dilated at that time. Colonoscopy was scheduled for next Sunday however due to the patient's increased nausea vomiting diarrhea she came to the emergency department for evaluation. Patient had significant workup done in the hospital to include full stool evaluation for any infectious process which was unremarkable. CT scan did indicate signs of colitis in the proximal half of the transverse colon with submucosal edema. Patient was admitted the hospital and GI consultation was requested and performed. Patient did undergo colonoscopy which did indicate colitis, biopsies were taken. Patient did have internal hemorrhoids +1 external hemorrhoid that needed to be clipped. The patient's stay her hemoglobin was monitored and her hemoglobin did drop down to 7.8 and given that she had heme positive stools she is transfused 1 unit of packed red blood cells which her hemoglobin went back up to 10.1. Patient's hemoglobin has maintained stability since then. Patient was in the ICU secondary to continued hypotension secondary to hypovolemia from her nausea, vomiting, diarrhea. Patient was on electrolyte replacement protocol due to electrolyte loss from diarrhea. Patient was started on Questran and Lomotil with significant improvement. Patient was given multiple liters of fluid boluses as well as albumin infusions with improvement of her blood pressure. Patient does have history of chronic anemia which appears to be macrocytic. Hematology was consulted for further recommendations in reference to the patient's history of lymphoma, chronic anemia, pancytopenia. Patient was actually doing well and was transferred to the medical floor. However last evening the patient had acute onset of shortness of breath. There is no indication chest pain, abdominal pain, nausea, vomiting. Patient had significant workup performed which did indicate a acute troponin elevation, significant elevation of BNP. Chest x-ray did showed new findings of pulmonary edema, pulmonary angiogram was performed which did show significant pulmonary edema with bilateral pleural effusions. Patient was transferred back to the ICU due to acute hypoxic respiratory failure. Patient was requiring 6 L nasal cannula maintain O2 saturations greater than 92%. Upon review of the EKGs it does appears patient had acute changes with Q-wave presentation in the inferior leads. Due to the patient's respiratory failure, significant hypotension, acute myocardial infarction, acute cardiomyopathy, acute congestive heart failure critical care consultation was requested for management in the ICU. SUBJECTIVE: 03/09: Currently on norepinephrine drip at 8 mcg/min. Complaining of being slightly short of breath. Current x-ray revealed tiny pleural effusions. Abdominal pain control. 03/10: florid cardiogenic shock. lactate 13. altered. acutely agitated. going into respiratory failure. emergently intubated (see procedure note for details) . scvo2 from central line of 12%. transferred to CVICU. placed arterial, central lines and PA catheter. CI 1.6. 4mg bumex iv x 1 with bumex drip at 2mg/ hr. started milrinone and epinephrine drips. no adequate uop. Dr. Hewitt came in and emergently LHC: clean coronaries. placed impella. uop began to knot picker cloth after impella. right leg without dopplerable signals after impella, but cap refill present (sluggish, but present). patient still follows commands. lactate peaked at 19, now downtrending. fio2 90% on peep 10. pulmonary edema. 03/11: Condition remains critical with guarded prognosis. Remains in profound shock. Now cardiogenic hypovolemic, hemoglobin 5.4-3 unit PRBC stat ordered, with calcium replacement. Currently remains on the fentanyl and Versed for sedation. Also on epinephrine 3 mcg/min, milrinone 0.375 mcg/kg/min, Levophed 20 mcg/min and vasopressin 0.04 international units. Heparin held due to supratherapeutic INR. Lactate continues to trend down last 4.4. Mixed venous gases pending at this time. Impella R groin, P level 6, Flow 2.9 L/min, sig 88/ 59. UO over last 12 hours is 4L. 03/12: Patient still remains extremely critical and in profound shock currently cardiogenic and hemorrhagic shock. Hemoglobin today 5 severely coagulopathic getting blood and blood products. Liver ultrasound confirms liver cirrhosis. Currently on Levophed, milrinone, vasopressin, and amiodarone infusions. Impala reading 106/75, 3.0 L/min. PAC CI 2.6, SVR decreased 979. CVP 10. Bedside echo confirms impaired left pigtail positioning towards apex, LVEF appears 20% also evidence of RV dysfunction. Bilirubin is 8.3 today INR 1.5 PTT 38.2. Unable to anticoagulate due to life-threatening hemorrhage from right groin impeller site and lower GI bleed. Patient's right lower extremity is mottled pulseless nonfunctional now. Prognosis is extremely guarded. I discussed with options. He had given me history that patient drinks about 8 shots of vodka daily and smokes 2 packs of cigarettes per day. On further discussion he stated to me that he cannot by any means see her by going on an LVAD or getting a heart transplant given her habits. He refuses a transfer to a heart transplant/LVAD center after our discussion 03/12: Remains critical still requiring inotropic pressor and Impella support. Performance level was increased to 8 at 4 AM today currently flow 3.4 L/min. Blood pressure 119/81. Urine output 2.5 L/min creatinine is 1.6. Remains grossly fluid positive will give 1 dose of Lasix 20 mg 1. Hemoglobin is 7.4 platelets 57 INR 1.6. Blood and blood product transfusions ordered. Right leg remains without pulse mottled. Palliative care involved currently alternate code. Levophed currently decreased to 6 mcg/min but remains on milrinone and vasopressin and amiodarone gtt. unable to start tube feeding due to GI bleed and high pressor requirement. There is a slight decrease in the right groin bleeding, but patient continues to have lower GI bleed 03/14: Patient continues to require pressors and Impella for cardiac support. This morning, the Impella was alarming an an aortic waveform was noted on the monitor; a stat bedside echo showed that the device had pulled back and was approximately 2 cm from the aortic valve. The pigtail was advanced by Dr. Iqbal under echo guidance, waveform and MAP improved, no further alarms noted. The patient continues to have bleeding from the right groin access site and per rectum. Flolan stopped this morning around 6:30 AM. Objective Vital Signs / I&O: Vital Signs 03/13/18 11:00 03/13/18 11:20 03/13/18 11:30 Temperature 99.3 F 99.3 F Pulse Rate 82 82 Respiratory Rate 17 17 15 Blood Pressure 92/65 L 88/62 L Pulse Oximetry 96 96 03/13/18 12:00 03/13/18 14:00 03/13/18 15:00 Temperature 99.8 F H Pulse Rate 77 73 Respiratory Rate 18 19 Blood Pressure 93/66 L 82/59 L Pulse Oximetry 95 96 03/13/18 16:00 03/13/18 16:05 03/13/18 19:00 Temperature Pulse Rate 77 86 Respiratory Rate 16 Blood Pressure 84/61 L Pulse Oximetry 93 L 03/13/18 19:15 03/13/18 20:00 03/13/18 20:15 Temperature 99.5 F Pulse Rate 84 83 Respiratory Rate 13 18 Blood Pressure 86/62 L 82/60 L Pulse Oximetry 90 L 97 03/13/18 23:00 03/14/18 00:00 03/14/18 00:10 Temperature 98.8 F Pulse Rate 72 83 Respiratory Rate 12 12 Blood Pressure 84/60 L 80/58 L Pulse Oximetry 97 97 03/14/18 03:00 03/14/18 03:15 03/14/18 03:43 Temperature 98.4 F Pulse Rate 86 83 Respiratory Rate 17 19 Blood Pressure 94/64 L Pulse Oximetry 95 95 03/14/18 04:00 03/14/18 06:25 03/14/18 06:53 Temperature 99.1 F 98.9 F Pulse Rate 86 79 88 Respiratory Rate 17 20 Blood Pressure 83/57 L 98/61 L 85/53 L Pulse Oximetry 96 95 03/14/18 06:57 03/14/18 07:00 03/14/18 07:53 Temperature 99 F 98.9 F 99 F Pulse Rate 89 88 88 Respiratory Rate 18 16 16 Blood Pressure 85/54 L 80/54 L 80/54 L Pulse Oximetry 96 03/14/18 08:25 Temperature 98.7 F Pulse Rate 73 Respiratory Rate 16 Blood Pressure 82/53 L Pulse Oximetry 93 L Intake & Output 03/13/18 03/14/18 03/14/18 18:59 06:59 18:59 Intake Total 2067 / 2067 1865.3 / 1865.3 850 / 850 Output Total 2650 / 2650 1370 / 1370 Balance -582 / -582 495.3 / 495.3 850 / 850 Weight 71 kg Intake: IV 1260 / 1260 1585.3 / 1585.3 50 / 50 Cordarone Inj 450 MG In D5W Inj 250 / 250 250 / 250 241 ML @ 1 MG/MIN 33.33 mls/hr IV.CONT TITRATE PRN Rx#: [id number] Versed Inj 50 mg In 50 ml @ 2 50 / 50 87.3 / 87.3 MG/HR 2 mls/hr IV.CONT TITRATE PRN Rx#:[id number] Primacor Inj 20 MG In NS Inj 80 100 / 100 98 / 98 ML @ 0.375 MCG/KG/MIN 6.86 mls /hr IV.CONT .[id number] BRENDA Rx#: [id number] Pitressin Inj 40 UNIT In D5W 100 / 100 110 / 110 Inj 98 ML @ 0.01 UNITS/MIN 1.5 mls/hr IV.CONT TITRATE PRN Rx#: [id number] Calcium Chloride Inj 1 GM In NS 110 / 110 Inj 100 ML @ 110 mls/hr IV.SIG ONCE ONE Rx#:[id number] Magnesium Sulfate Inj 2 GM In 100 / 100 NS Inj 96 ML @ 50 mls/hr IV.SIG UNSCH PRN Rx#:[id number] MVI-12 Inj 10 ML Thiamine Inj 540 / 540 100 MG Folvite Inj 1 MG In NS Inj 500 ML @ 125 mls/hr IV.SIG Q24H [facility] Rx#:[id number] Zosyn 3.375 GM Premix 50 ML @ 50 / 50 100 / 100 50 / 50 100 mls/hr IV.SIG Q6H [facility] Rx#: [id number] KCl 40 mEq Premix Inj 40 meq In 300 / 300 100 ml @ 25 mls/hr IV.SIG ONCE ONE Rx#:[id number] NS Inj 250 ML @ 15 mls/hr IV. 50 / 50 SIG ONCE ONE Rx#:[id number] fentaNYL 10 mcg/mL Premix Drip 250 / 250 2,500 mcg In 250 ml @ 50 MCG/HR 5 mls/hr IV.SIG TITRATE PRN Rx #:[id number] Flolan (30,000 ng/mL) Neb 37.5 100 / 100 ML In NS Inj 62.5 ML @ 8 mls/hr NEB Q8H [facility] Rx#:[id number] Other 808 / 808 Intake (Blood Product) Amt 0 / 0 280 / 280 800 / 800 Plasma Thawed 5 Day Cp2d Unit 0 / 0 [id number] Plt Pheresis A Leukoreduced 280 / 280 Unit [id number] Plt Pheresis B Leukoreduced 0 / 0 Unit [id number] Rbc As-3 Leukoreduced Unit 0 / 0 [id number] Rbc As-3 Leukoreduced Unit 400 / 400 [id number] Rbc As-3 Leukoreduced Unit 400 / 400 [id number] Output: Urine Amount (Catheter) 2650 / 2650 1370 / 1370 Indwelling Urethral Catheter 2650 / 2650 1370 / 1370 Other: Other Intake Source Saline Solution Plasma Thawed 5 Day Cp2d Unit Saline Solution [id number] Plt Pheresis B Leukoreduced Saline Solution Unit [id number] Rbc As-3 Leukoreduced Unit Saline Solution [id number] Rbc As-3 Leukoreduced Unit Saline Solution [id number] Rbc As-3 Leukoreduced Unit Saline Solution [id number] Date of Last Bowel Movement 03/13/18 03/13/18 Result Diagrams: 03/14/18 09:15 03/14/18 04:45 Objective Remarks: GENERAL: Middle-aged female in bed intubated sedated critically ill. SKIN: RLE cool, poorly perfused, mottled HEAD: Atraumatic. Normocephalic. EYES: Pupils equal and round. ENT: No nasal bleeding or discharge. ETT present NECK: Trachea midline. significant JVD+. Right IJ PA catheter in place CARDIOVASCULAR: On multiple pressors. PAC in place with CO 5.55, CI 3.44, CVP 12 , SVR 791 on vasopressin @0.03, milrinone @0.375, Impella: 3.3L/min on P-8, 120/ 68 mmHg RESPIRATORY: Mechanical breath sounds present bilaterally, diminished GASTROINTESTINAL: Abdomen soft, non-tender, mildly distended MUSCULOSKELETAL: Extremities mottled. 1+ edema. No Doppler signal right lower extremity, cool, with knee immobilizer in place Impella Insertion site with continued bleeding despite direct pressure with sand bags NEUROLOGICAL: RASS -2, no acute distress, appears comfortable Assessment and Plan - Assessment and Plan Plan: Assessment: 58yF with severe acute cardiogenic shock, now with hemorrhagic shock also with need for mechanical support. Etiology could be alcohol induced cardiomyopathy (6-8 shots of vodka daily) versus Adriamycin induced cardiomyopathy, vs new viral myocarditis, given colitis as her presenting symptom. Continue mechanical support with Impella CP. US shows liver cirrhosis and patient has significant bleeding from right groin and lower GI. Not a candidate for LVAD to destination or to recovery, definitely not a cardiac transplant candidate. Palliative care is following now. Her chance of survival is minimal with multi organ failure NEUROLOGY/PSYCH: Acute metabolic encephalopathy Alcohol dependence Continue monitor neurological function, frequent neuro checks Versed and fentanyl for sedation and vent synchrony Morphine sulfate 2 mg IV every 4 hours as needed for pain Encephalopathy secondary to cardiogenic shock Supplement multivitamin and thiamine PULMONOLOGY Acute hypoxic respiratory failure secondary to pulmonary edema, pleural effusion L>R Pleural effusion Intubated 03/10 for acute decline. Status post thoracentesis by Dr. Nate Thompson 03/07 Albuterol/ipratropium aerosols every 6 hours and albuterol aerosols every 2 hours as needed Vent bundle, HOB elevated Not appropriate for spontaneous breathing trial until shock improves Flolan weaned off this morning CARDIOLOGY Cardiogenic shock, complicated by hemorrhagic shock now Acute systolic heart failure exacerbation Non-ischemic Cardiomyopathy (alcohol induced vs Adriamycin induced vs viral Elevated troponin Elevated BNP Ischemic right foot s/p Impella CP placement 03/10. * Tip of Impella noted to have been pulled back on both CXR and on echo this morning, advanced at bedside by Dr. Iqbal under echo guidance with improvement in flow and MAP. Performance level dropped to 2 while troubleshooting device, turned up to P-8 afterward. Flow 3.3 L/min, BP 120/68, UO 4 L (4 cc/kg/hr) in 24 hours, lactic acid 2.2 yesterday (trending down) * Milrinone @ 0.375, vasopressin @ 0.035, levo off * Will stop milrinone today as MAPs are in 80s * Amio @ 0.5, currently in sinus @ 60 BPM * Trend lactates. watch CVP carefully: RV failure may ensue from LVAD, last CVP 10 * Avoid over-diurese as this may cause suck-down of LVAD, currently on 40% fio2 with pulmonary edema. Will give another dose of lasix after lytes are repleted. * Heparin drip DCd due to supratherapeutic PTT, and severe GI bleed and right groin hematoma s/p LHC 03/10 with clean coronaries. EF now 15-20%. moderate RV dysfunction * 2D Echo EF 30-35% 03/07. Previous echo prior to CHOP regimen showed normal ejection fraction * Cardiomyopathy may be secondary to Adriamycin toxicity vs sev alcohol abuse * US shows liver cirrhosis and patient has significant bleeding from right groin and lower GI. Not a candidate for LVAD to destination or to recovery, definitely not a cardiac transplant candidate. Active alcohol dependent PA catheter- CO 5.55, CI 3.44, CVP 12, SVR 791 No pulse right lower extremity, unable to salvage the right limb because removal of Impella can be fatal at this time * Dr. Arellano following GASTROENTEROLOGY Colitis, ? ischemic GI bleed, active External hemorrhoid Shock liver Liver cirrhosis NPO with OGT. GI is following the patient and has undergone upper and lower endoscopies which does indicate colitis, distal esophagitis, external hemorrhoids. Pathology negative. Patient is too unstable for repeat EGD colonoscopy MRA of the abdomen was performed which did show 50% to 55% stenosis of the SMA daily cmp Liver ultrasound shows liver cirrhosis RENAL Acute kidney injury Secondary to cardiogenic shock Continue monitor renal functions, bicarb, anion gap Urine output remains excellent, creatinine 1.3 INFECTIOUS DISEASE Severe sepsis Repeated cultures 03/11/2018, negative to date Continue Zosyn, single dose of vancomycin given Colitis, appears to be not infectious. Continue p.o. Flagyl C. difficile, enteric pathogens, Giardia, stool for WBCs all appear to be negative Urine culture shows 50 - 100,000 of mixed tierney probable contaminants Discontinue antibiotics when cultures finalize if still negative ENDOCRINOLOGY Diabetes mellitus Elevated TSH Continue Accu-Cheks with sliding scale insulin/aspart. On the metformin thousand grams twice daily at home TSH 6.89. Low free T3. Normal free T4. On levothyroxine 25 mcg daily. Continue IV Solu-Medrol 60 mg 12 hours Continue sliding scale, added Levemir 10 every 12 HEMATOLOGY Anemia requiring transfusion with hemorrhagic shock Coagulopathy secondary to shock liver, liver cirrhosis History of large B cell lymphoma macrocytic anemia Thrombocytopenia GI bleed with bleeding external hemorrhoid Status post multiple blood and blood product transfusions, still with high transfusion requirements Hematology is following the patient Source of blood loss is right groin Impella site and lower GI bleed Heparin DCd for supratherapeutic PTT, active GI bleed and coagulopathy Would like to keep platelets >50K in the setting of continued blood loss PROPHYLAXIS DVT prevention with sequential compression devices, as heparin cannot be used GI protection with Protonix LINES Mediport has been accessed, right IJ PA catheter in place, right fem Impella access CODE STATUS Alternative code- intubation only Counseling/ Coordination of Care: Total critical care time: 82 minutes. This includes examining the patient, gathering history from someone other than the patient (i.e., extensive chart review), discussing the patient's care with other providers, managing the patient's blood pressure and ventilator settings, ordering and interpreting radiology studies, ordering and interpreting laboratory studies, managing the patient's pain and sedation requirements, administration of blood products, re- evaluation at frequent intervals, and documentation. All critical care time is separate and exclusive of procedures, teaching, and patient/ family updates.
--- NOTE | 2018-03-14 11:01 | P.PNNP ---
Subjective Interval history: Remains critically ill. Impella device became dislodged. <Minnie Yeung - Last Filed: 03/14/18 10:54> Physical Exam Vital signs: Vital Signs 03/13/18 11:00 03/13/18 11:20 03/13/18 11:30 Temperature 99.3 F 99.3 F Pulse Rate 82 82 Respiratory Rate 17 17 15 Blood Pressure 92/65 L 88/62 L Pulse Oximetry 96 96 03/13/18 12:00 03/13/18 14:00 03/13/18 15:00 Temperature 99.8 F H Pulse Rate 77 73 Respiratory Rate 18 19 Blood Pressure 93/66 L 82/59 L Pulse Oximetry 95 96 03/13/18 16:00 03/13/18 16:05 03/13/18 19:00 Temperature Pulse Rate 77 86 Respiratory Rate 16 Blood Pressure 84/61 L Pulse Oximetry 93 L 03/13/18 19:15 03/13/18 20:00 03/13/18 20:15 Temperature 99.5 F Pulse Rate 84 83 Respiratory Rate 13 18 Blood Pressure 86/62 L 82/60 L Pulse Oximetry 90 L 97 03/13/18 23:00 03/14/18 00:00 03/14/18 00:10 Temperature 98.8 F Pulse Rate 72 83 Respiratory Rate 12 12 Blood Pressure 84/60 L 80/58 L Pulse Oximetry 97 97 03/14/18 03:00 03/14/18 03:15 03/14/18 03:43 Temperature 98.4 F Pulse Rate 86 83 Respiratory Rate 17 19 Blood Pressure 94/64 L Pulse Oximetry 95 95 03/14/18 04:00 03/14/18 06:25 03/14/18 06:53 Temperature 99.1 F 98.9 F Pulse Rate 86 79 88 Respiratory Rate 17 20 Blood Pressure 83/57 L 98/61 L 85/53 L Pulse Oximetry 96 95 03/14/18 06:57 03/14/18 07:00 03/14/18 07:53 Temperature 99 F 98.9 F 99 F Pulse Rate 89 88 88 Respiratory Rate 18 16 16 Blood Pressure 85/54 L 80/54 L 80/54 L Pulse Oximetry 96 03/14/18 08:25 Temperature 98.7 F Pulse Rate 73 Respiratory Rate 16 Blood Pressure 82/53 L Pulse Oximetry 93 L Intake & Output 03/13/18 03/14/18 03/14/18 18:59 06:59 18:59 Intake Total 2068 / 2068 1865.3 / 1865.3 850 / 850 Output Total 2650 / 2650 1370 / 1370 Balance -582 / -582 495.3 / 495.3 850 / 850 Weight 71 kg Intake: IV 1260 / 1260 1585.3 / 1585.3 50 / 50 Cordarone Inj 450 MG In D5W Inj 250 / 250 250 / 250 241 ML @ 1 MG/MIN 33.33 mls/hr IV.CONT TITRATE PRN Rx#: [id number] Versed Inj 50 mg In 50 ml @ 2 50 / 50 87.3 / 87.3 MG/HR 2 mls/hr IV.CONT TITRATE PRN Rx#:[id number] Primacor Inj 20 MG In NS Inj 80 100 / 100 98 / 98 ML @ 0.375 MCG/KG/MIN 6.86 mls /hr IV.CONT .[id number] [facility] Rx#: [id number] Pitressin Inj 40 UNIT In D5W 100 / 100 110 / 110 Inj 98 ML @ 0.01 UNITS/MIN 1.5 mls/hr IV.CONT TITRATE PRN Rx#: [id number] Calcium Chloride Inj 1 GM In NS 110 / 110 Inj 100 ML @ 110 mls/hr IV.SIG ONCE ONE Rx#:[id number] Magnesium Sulfate Inj 2 GM In 100 / 100 NS Inj 96 ML @ 50 mls/hr IV.SIG UNSCH PRN Rx#:[id number] MVI-12 Inj 10 ML Thiamine Inj 540 / 540 100 MG Folvite Inj 1 MG In NS Inj 500 ML @ 125 mls/hr IV.SIG Q24H [facility] Rx#:[id number] Zosyn 3.375 GM Premix 50 ML @ 50 / 50 100 / 100 50 / 50 100 mls/hr IV.SIG Q6H [facility] Rx#: [id number] KCl 40 mEq Premix Inj 40 meq In 300 / 300 100 ml @ 25 mls/hr IV.SIG ONCE ONE Rx#:[id number] NS Inj 250 ML @ 15 mls/hr IV. 50 / 50 SIG ONCE ONE Rx#:[id number] fentaNYL 10 mcg/mL Premix Drip 250 / 250 2,500 mcg In 250 ml @ 50 MCG/HR 5 mls/hr IV.SIG TITRATE PRN Rx #:[id number] Flolan (30,000 ng/mL) Neb 37.5 100 / 100 ML In NS Inj 62.5 ML @ 8 mls/hr NEB Q8H [facility] Rx#:[id number] Other 808 / 808 Intake (Blood Product) Amt 0 / 0 280 / 280 800 / 800 Plasma Thawed 5 Day Cp2d Unit 0 / 0 [id number] Plt Pheresis A Leukoreduced 280 / 280 Unit [id number] Plt Pheresis B Leukoreduced 0 / 0 Unit [id number] Rbc As-3 Leukoreduced Unit 0 / 0 [id number] Rbc As-3 Leukoreduced Unit 400 / 400 [id number] Rbc As-3 Leukoreduced Unit 400 / 400 [id number] Output: Urine Amount (Catheter) 2650 / 2650 1370 / 1370 Indwelling Urethral Catheter 2650 / 2650 1370 / 1370 Other: Other Intake Source Saline Solution Plasma Thawed 5 Day Cp2d Unit Saline Solution [id number] Plt Pheresis B Leukoreduced Saline Solution Unit [id number] Rbc As-3 Leukoreduced Unit Saline Solution [id number] Rbc As-3 Leukoreduced Unit Saline Solution [id number] Rbc As-3 Leukoreduced Unit Saline Solution [id number] Date of Last Bowel Movement 03/13/18 03/13/18 - Constitutional chronically ill appearing Comments: Intubated, unresponsive. - Routine HEENT Exam Head: Present: normocephalic - Routine Neck Exam Present: supple, full ROM - Routine Respiratory Exam Present: patient mechanically ventilated, decreased breath sounds - Routine Cardiovascular Exam Present: S1, S2 - Routine Abdominal Exam Present: soft, normoactive bowel sounds - Routine Skin Exam Present: intact, dry - Routine Neurological Exam sedated and unresponsive - Detailed Neurological Exam: Coma Scale Eye Opening: None Verbal Response: None Motor Response: None Yolanda Coma Scale Total: 3 - Urinary Catheter Management Female External Cath placed during this visit: yes Reason for continuing: Hourly intake/output Insertion date: 03/07/18 Insertion time: 17:00 Indwelling Urethral Catheter Cath placed during this visit: yes, but has since been removed by the nurse Reason for continuing: Hourly intake/output Insertion date: 03/10/18 Insertion time: 09:30 Removal date: 03/08/18 Removal time: 09:25 <Minnie Yeung - Last Filed: 03/14/18 10:54> Vital signs: Vital Signs 03/13/18 23:00 03/14/18 00:00 03/14/18 00:10 Temperature 98.8 F Pulse Rate 72 83 Respiratory Rate 12 12 Blood Pressure 84/60 L 80/58 L Pulse Oximetry 97 97 03/14/18 03:00 03/14/18 03:15 03/14/18 03:43 Temperature 98.4 F Pulse Rate 86 83 Respiratory Rate 17 19 Blood Pressure 94/64 L Pulse Oximetry 95 95 03/14/18 04:00 03/14/18 06:25 03/14/18 06:53 Temperature 99.1 F 98.9 F Pulse Rate 86 79 88 Respiratory Rate 17 20 Blood Pressure 83/57 L 98/61 L 85/53 L Pulse Oximetry 96 95 03/14/18 06:57 03/14/18 07:00 03/14/18 07:53 Temperature 99 F 98.9 F 99 F Pulse Rate 89 88 88 Respiratory Rate 18 16 16 Blood Pressure 85/54 L 80/54 L 80/54 L Pulse Oximetry 96 03/14/18 08:00 03/14/18 08:15 03/14/18 08:25 Temperature 98.7 F Pulse Rate 71 73 Respiratory Rate 20 16 Blood Pressure 88/58 L 82/53 L Pulse Oximetry 92 L 93 L 03/14/18 11:00 03/14/18 11:11 03/14/18 11:30 Temperature 99.1 F 99.1 F Pulse Rate 78 65 Respiratory Rate 18 19 Blood Pressure 98/65 L 108/70 Pulse Oximetry 94 L 97 03/14/18 11:35 03/14/18 12:00 03/14/18 15:00 Temperature 99 F 99.6 F Pulse Rate 69 71 61 Respiratory Rate 16 16 Blood Pressure 120/79 132/85 94/65 L Pulse Oximetry 96 03/14/18 16:00 03/14/18 20:14 Temperature Pulse Rate 58 L Respiratory Rate 16 Blood Pressure 96/64 L Pulse Oximetry 94 L Intake & Output 03/14/18 03/14/18 03/15/18 06:59 18:59 06:59 Intake Total 1965.3 / 1965.3 2197 / 2197 Output Total 1370 / 1370 1100 / 1100 Balance 595.3 / 595.3 1097 / 1097 Weight 71 kg Intake: IV 1685.3 / 1685.3 450 / 450 Cordarone Inj 450 MG In D5W Inj 250 / 250 241 ML @ 1 MG/MIN 33.33 mls/hr IV.CONT TITRATE PRN Rx#: [id number] Versed Inj 50 mg In 50 ml @ 2 87.3 / 87.3 50 / 50 MG/HR 2 mls/hr IV.CONT TITRATE PRN Rx#:[id number] Primacor Inj 20 MG In NS Inj 80 98 / 98 ML @ 0.375 MCG/KG/MIN 6.86 mls /hr IV.CONT .[id number] [facility] Rx#: [id number] Pitressin Inj 40 UNIT In D5W 110 / 110 100 / 100 Inj 98 ML @ 0.01 UNITS/MIN 1.5 mls/hr IV.CONT TITRATE PRN Rx#: [id number] Magnesium Sulfate Inj 2 GM In 100 / 100 NS Inj 96 ML @ 50 mls/hr IV.SIG ONCE ONE Rx#:[id number] MVI-12 Inj 10 ML Thiamine Inj 540 / 540 100 MG Folvite Inj 1 MG In NS Inj 500 ML @ 125 mls/hr IV.SIG Q24H [facility] Rx#:[id number] Zosyn 3.375 GM Premix 50 ML @ 100 / 100 100 / 100 100 mls/hr IV.SIG Q6H [facility] Rx#: [id number] KCl 40 mEq Premix Inj 40 meq In 100 / 100 100 ml @ 25 mls/hr IV.SIG Q2H PRN Rx#:[id number] NS Inj 250 ML @ 15 mls/hr IV. 50 / 50 SIG ONCE ONE Rx#:[id number] fentaNYL 10 mcg/mL Premix Drip 250 / 250 2,500 mcg In 250 ml @ 50 MCG/HR 5 mls/hr IV.SIG TITRATE PRN Rx #:[id number] Flolan (30,000 ng/mL) Neb 37.5 100 / 100 ML In NS Inj 62.5 ML @ 8 mls/hr NEB Q8H [facility] Rx#:[id number] Other 500 / 500 Pre-Pooled Cryo Thawed 10units 250 / 250 Unit [id number] Intake (Blood Product) Amt 280 / 280 1247 / 1247 Plt Pheresis A Leukoreduced 219 / 219 Unit [id number] Plt Pheresis A Leukoreduced 280 / 280 Unit [id number] Pre-Pooled Cryo Thawed 10units 228 / 228 Unit [id number] Rbc As-3 Leukoreduced Unit 400 / 400 [id number] Rbc As-3 Leukoreduced Unit 400 / 400 [id number] Output: Urine Amount (Catheter) 1370 / 1370 1100 / 1100 Indwelling Urethral Catheter 1370 / 1370 1100 / 1100 Other: Other Intake Source Saline Solution Plt Pheresis A Leukoreduced Saline Solution Unit [id number] Pre-Pooled Cryo Thawed 10units Saline Solution Unit [id number] Rbc As-3 Leukoreduced Unit Saline Solution [id number] Rbc As-3 Leukoreduced Unit Saline Solution [id number] Date of Last Bowel Movement 03/13/18 03/14/18 # Bowel Movements 2 - Urinary Catheter Management Female External Cath placed during this visit: no Indwelling Urethral Catheter Cath placed during this visit: no <Aj Spencer - Last Filed: 03/14/18 21:38> Assessment and Plan - Assessment (1) Acute kidney injury Code(s): N17.9 - Acute kidney failure, unspecified Status: Acute Plan: Normal renal function at baseline. Renal function is better. LOVE due to cardiogenic shock. Excellent urine output. However overall prognosis is poor. No need for renal replacement therapy. Continue pressor and inotrope support, hypotensive today. Replace potassium. Obtain daily labs. Avoid nephrotoxic agents. Monitor urine output. 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 Cardiology following. Impella device is being repositioned. Supportive measures as mentioned above. The family is pondering passionate withdrawal in next day or two. (3) Ischemic leg Code(s): I99.8 - Other disorder of circulatory system Status: Acute Plan: Vascular surgery following, appreciate recommendations. Pulse was lost in her right leg but recently resumed. (4) Cirrhosis Code(s): K74.60 - Unspecified cirrhosis of liver Status: Acute Plan: Per imaging. Management per critical care. <Minnie Yeung - Last Filed: 03/14/18 10:54> - Assessment (1) Acute kidney injury Code(s): N17.9 - Acute kidney failure, unspecified Status: Acute (2) Cardiogenic shock Code(s): R57.0 - Cardiogenic shock Status: Acute (3) Ischemic leg Code(s): I99.8 - Other disorder of circulatory system Status: Acute (4) Cirrhosis Code(s): K74.60 - Unspecified cirrhosis of liver Status: Acute - Attending Attestation patient was seen and examined. Agree with above assessment and plan. Renal function has improved. We will sign off at this time. <Aj Spencer - Last Filed: 03/14/18 21:38>
[2018-03-14] MEDS ORDERED: Magnesium Sulfate Inj 2 GM in Sodium Chlor 0.9% Inj 96 ML IV.SIG ONE (12:00)
[2018-03-14] MEDS: Budesonide-Formoterol 160/4.5 MCG 6 GM Inhaler INH SCH ×2 (12:01→21:44)
[2018-03-14] MEDS: Insulin Detemir Inj 1,000 UNIT/10 ML Vial SQ SCH ×2 (12:04→21:38)
--- NOTE | 2018-03-14 13:08 | P.PNPAL ---
Reason for Visit Reason for visit: a. To assist with evaluation and management of symptoms including: dyspnea, pain, diarrhea b. To assist medical decision maker(s) with: better understanding of current medical conditions; weighing benefits/burdens of medical treatment options; making medical treatment decisions. Subjective Subjective/Interval History: Pt resting in bed, intubated on vent. She is being weaned off pressors, still on levophed. Impella weaning to begin once pt off all pressors. Right foot cool and dusky. Per RN there was pulse this morning but impella found to be malpositioned and once in better position, no pulse found. Impella incread from 3 to 3.4/min. She is still bleeding, per RN bleeding worse, having bleeding from access site groin, rectal bleeding. Hem/onc working up for acquired [place]. No sign pain or anxiety on my eval, sedated on vent. Family/Friend Interactions: Brief telephone conversation with . Provided medical update. Answered all questions to the best of my ability. He voices feeling "lost." Advance Directives Living Will: Never completed Health Care Surrogate: Never completed Durable Power of Filter Worker: Never completed Objective Vital Signs: Vital Signs 03/13/18 14:00 03/13/18 15:00 03/13/18 16:00 Temperature 99.8 F H Pulse Rate 73 77 Respiratory Rate 18 19 Blood Pressure 82/59 L 84/61 L Pulse Oximetry 95 96 03/13/18 16:05 03/13/18 19:00 03/13/18 19:15 Temperature 99.5 F Pulse Rate 86 84 Respiratory Rate 16 13 Blood Pressure 86/62 L Pulse Oximetry 93 L 90 L 03/13/18 20:00 03/13/18 20:15 03/13/18 23:00 Temperature 98.8 F Pulse Rate 83 72 Respiratory Rate 18 12 Blood Pressure 82/60 L 84/60 L Pulse Oximetry 97 97 03/14/18 00:00 03/14/18 00:10 03/14/18 03:00 Temperature Pulse Rate 83 86 Respiratory Rate 12 Blood Pressure 80/58 L Pulse Oximetry 97 03/14/18 03:15 03/14/18 03:43 03/14/18 04:00 Temperature 98.4 F Pulse Rate 83 86 Respiratory Rate 17 19 Blood Pressure 94/64 L 83/57 L Pulse Oximetry 95 95 03/14/18 06:25 03/14/18 06:53 03/14/18 06:57 Temperature 99.1 F 98.9 F 99 F Pulse Rate 79 88 89 Respiratory Rate 17 20 18 Blood Pressure 98/61 L 85/53 L 85/54 L Pulse Oximetry 96 95 03/14/18 07:00 03/14/18 07:53 03/14/18 08:00 Temperature 98.9 F 99 F Pulse Rate 88 88 71 Respiratory Rate 16 16 Blood Pressure 80/54 L 80/54 L 88/58 L Pulse Oximetry 96 03/14/18 08:15 03/14/18 08:25 03/14/18 11:11 Temperature 98.7 F 99.1 F Pulse Rate 73 65 Respiratory Rate 20 16 19 Blood Pressure 82/53 L 108/70 Pulse Oximetry 92 L 93 L 03/14/18 11:30 03/14/18 11:35 Temperature 99 F Pulse Rate 69 Respiratory Rate 16 Blood Pressure 120/79 Pulse Oximetry 97 Intake & Output 03/13/18 03/14/18 03/14/18 18:59 06:59 18:59 Intake Total 2068 / 2068 1865.3 / 1865.3 1547 / 1547 Output Total 2650 / 2650 1370 / 1370 Balance -582 / -582 495.3 / 495.3 1547 / 1547 Weight 71 kg Intake: IV 1260 / 1260 1585.3 / 1585.3 50 / 50 Cordarone Inj 450 MG In D5W Inj 250 / 250 250 / 250 241 ML @ 1 MG/MIN 33.33 mls/hr IV.CONT TITRATE PRN Rx#: [id number] Versed Inj 50 mg In 50 ml @ 2 50 / 50 87.3 / 87.3 MG/HR 2 mls/hr IV.CONT TITRATE PRN Rx#:[id number] Primacor Inj 20 MG In NS Inj 80 100 / 100 98 / 98 ML @ 0.375 MCG/KG/MIN 6.86 mls /hr IV.CONT .[id number] [facility] Rx#: [id number] Pitressin Inj 40 UNIT In D5W 100 / 100 110 / 110 Inj 98 ML @ 0.01 UNITS/MIN 1.5 mls/hr IV.CONT TITRATE PRN Rx#: [id number] Calcium Chloride Inj 1 GM In NS 110 / 110 Inj 100 ML @ 110 mls/hr IV.SIG ONCE ONE Rx#:[id number] Magnesium Sulfate Inj 2 GM In 100 / 100 NS Inj 96 ML @ 50 mls/hr IV.SIG UNSCH PRN Rx#:[id number] MVI-12 Inj 10 ML Thiamine Inj 540 / 540 100 MG Folvite Inj 1 MG In NS Inj 500 ML @ 125 mls/hr IV.SIG Q24H JYOTHI Rx#:[id number] Zosyn 3.375 GM Premix 50 ML @ 50 / 50 100 / 100 50 / 50 100 mls/hr IV.SIG Q6H JYOTHI Rx#: [id number] KCl 40 mEq Premix Inj 40 meq In 300 / 300 100 ml @ 25 mls/hr IV.SIG ONCE ONE Rx#:[id number] NS Inj 250 ML @ 15 mls/hr IV. 50 / 50 SIG ONCE ONE Rx#:[id number] fentaNYL 10 mcg/mL Premix Drip 250 / 250 2,500 mcg In 250 ml @ 50 MCG/HR 5 mls/hr IV.SIG TITRATE PRN Rx #:[id number] Flolan (30,000 ng/mL) Neb 37.5 100 / 100 ML In NS Inj 62.5 ML @ 8 mls/hr NEB Q8H [facility] Rx#:[id number] Other 808 / 808 250 / 250 Pre-Pooled Cryo Thawed 10units 250 / 250 Unit [id number] Intake (Blood Product) Amt 0 / 0 280 / 280 1247 / 1247 Plasma Thawed 5 Day Cp2d Unit 0 / 0 [id number] Plt Pheresis A Leukoreduced 219 / 219 Unit [id number] Plt Pheresis A Leukoreduced 280 / 280 Unit [id number] Plt Pheresis B Leukoreduced 0 / 0 Unit [id number] Pre-Pooled Cryo Thawed 10units 228 / 228 Unit [id number] Rbc As-3 Leukoreduced Unit 0 / 0 [id number] Rbc As-3 Leukoreduced Unit 400 / 400 [id number] Rbc As-3 Leukoreduced Unit 400 / 400 [id number] Output: Urine Amount (Catheter) 2650 / 2650 1370 / 1370 Indwelling Urethral Catheter 2650 / 2650 1370 / 1370 Other: Other Intake Source Saline Solution Plasma Thawed 5 Day Cp2d Unit Saline Solution [id number] Plt Pheresis A Leukoreduced Saline Solution Unit [id number] Plt Pheresis B Leukoreduced Saline Solution Unit [id number] Pre-Pooled Cryo Thawed 10units Saline Solution Unit [id number] Rbc As-3 Leukoreduced Unit Saline Solution [id number] Rbc As-3 Leukoreduced Unit Saline Solution [id number] Rbc As-3 Leukoreduced Unit Saline Solution [id number] Date of Last Bowel Movement 03/13/18 03/13/18 03/13/18 Physical Exam: TUBES/LINES/DRAINS: OETT, Damon, RIJ central line, impella/cath right groin, right radial art line, right ACF PIV SKIN: pale. No jaundice, rashes, or lesions. +Ecchymoses on upper extremities. No wounds seen anteriorly. Not diaphoretic. HEAD: Atraumatic. Normocephalic. EYES: + scleral icterus. No injection or drainage. Fundi not examined. ENT: unable to assess hearing. Nose without bleeding or purulent drainage. Throat exam inhibited by OETT CARDIOVASCULAR: RRR without murmurs, gallops, or rubs. No JVD. RESPIRATORY/CHEST: Symmetric, unlabored respirations. Clear to auscultation. Breath sounds equal bilaterally. No wheezes, rales, or rhonchi. GASTROINTESTINAL: Abdomen semirfirm gil in RUQ, obese/distended. +hepatomegaly. bowel sounds hypoactive GENITOURINARY: Without palpable bladder distension. Damon catheter in place. MUSCULOSKELETAL: Right lower extremity cool, mottled, dusky. NEUROLOGICAL: sedated on vent. PSYCHIATRIC: unable to assess, sedated on vent . Diagnostic Tests Laboratory: Laboratory Results - last 72 hr 03/09/18 03/10/18 03/11/18 07:00 14:20 13:03 WBC RBC Hgb Hct MCV MCH MCHC RDW Plt Count MPV Prelim Diff (Auto) Neut % (Auto) Lymph % (Auto) [place] % (Auto) Eos % (Auto) Baso % (Auto) Neut # (Auto) Lymph # (Auto) [place] # (Auto) Eos # (Auto) Baso # (Auto) WBC Differential Diff Scan Seg Neuts % (Manual) Band Neuts % (Manual) Lymphocytes % (Manual) Monocytes % (Manual) Metamyelocytes % (Man) Myelocytes % (Man) Abs Neuts (Manual) Nucleated RBCs/100 WBC Differential Comment Platelet Estimate Platelet Morphology Spherocytes Haptoglobin PT INR APTT Fibrinogen Puncture Site Patient Temperature O2 Saturation ABG pH ABG pCO2 ABG pO2 ABG HCO3 ABG O2 Content ABG Base Excess ABG Methemoglobin Hemoglobin Carboxyhemoglobin O2 Delivery Device Vent Setting Inspired O2 Critical Value Sodium Potassium Chloride Carbon Dioxide Anion Gap BUN Creatinine Estimated GFR POC Glucose 346 H Random Glucose Lactic Acid Calcium Prot Corrected Calcium Phosphorus Magnesium Total Bilirubin AST ALT Alkaline Phosphatase Lactate Dehydrogenase Total Protein Albumin Chromogranin A 165.0 H Blood Type Antibody Screen MTS Gel Crossmatch Blood Bank Comment Bld Prod Order Comment 03/11/18 03/11/18 03/11/18 13:30 13:30 13:30 WBC 8.9 RBC 3.24 L Hgb 10.1 L D Hct 28.9 L MCV 89.0 D MCH 31.1 MCHC 34.9 RDW 20.4 H D Plt Count 77 L MPV 9.2 Prelim Diff (Auto) Neut % (Auto) Lymph % (Auto) [place] % (Auto) Eos % (Auto) Baso % (Auto) Neut # (Auto) Lymph # (Auto) [place] # (Auto) Eos # (Auto) Baso # (Auto) WBC Differential Diff Scan Seg Neuts % (Manual) Band Neuts % (Manual) Lymphocytes % (Manual) Monocytes % (Manual) Metamyelocytes % (Man) Myelocytes % (Man) Abs Neuts (Manual) Nucleated RBCs/100 WBC Differential Comment Platelet Estimate Platelet Morphology Spherocytes Haptoglobin PT INR APTT Fibrinogen Puncture Site Patient Temperature O2 Saturation ABG pH ABG pCO2 ABG pO2 ABG HCO3 ABG O2 Content ABG Base Excess ABG Methemoglobin Hemoglobin Carboxyhemoglobin O2 Delivery Device Vent Setting Inspired O2 Critical Value Sodium 139 Potassium 4.1 Chloride 92 L Carbon Dioxide 32.5 H Anion Gap 15 BUN 29 H Creatinine 1.80 H Estimated GFR 29 L POC Glucose Random Glucose 290 H Lactic Acid 4.9 H* Calcium 9.5 D Prot Corrected Calcium Phosphorus Magnesium 1.7 Total Bilirubin 4.7 H AST 269 H ALT 77 H Alkaline Phosphatase 66 Lactate Dehydrogenase Total Protein 5.3 L Albumin 3.2 L Chromogranin A Blood Type Antibody Screen MTS Gel Crossmatch Blood Bank Comment Bld Prod Order Comment 03/11/18 03/11/18 03/11/18 13:30 16:26 16:55 WBC RBC Hgb Hct MCV MCH MCHC RDW Plt Count MPV Prelim Diff (Auto) Neut % (Auto) Lymph % (Auto) [place] % (Auto) Eos % (Auto) Baso % (Auto) Neut # (Auto) Lymph # (Auto) [place] # (Auto) Eos # (Auto) Baso # (Auto) WBC Differential Diff Scan Seg Neuts % (Manual) Band Neuts % (Manual) Lymphocytes % (Manual) Monocytes % (Manual) Metamyelocytes % (Man) Myelocytes % (Man) Abs Neuts (Manual) Nucleated RBCs/100 WBC Differential Comment Platelet Estimate Platelet Morphology Spherocytes Haptoglobin PT INR APTT 78.8 H D Fibrinogen Puncture Site Patient Temperature O2 Saturation ABG pH ABG pCO2 ABG pO2 ABG HCO3 ABG O2 Content ABG Base Excess ABG Methemoglobin Hemoglobin Carboxyhemoglobin O2 Delivery Device Vent Setting Inspired O2 Critical Value Sodium Potassium Chloride Carbon Dioxide Anion Gap BUN Creatinine Estimated GFR POC Glucose 199 H Random Glucose Lactic Acid Calcium Prot Corrected Calcium Phosphorus Magnesium Total Bilirubin AST ALT Alkaline Phosphatase Lactate Dehydrogenase Total Protein Albumin Chromogranin A Blood Type Antibody Screen MTS Gel Crossmatch See Detail Blood Bank Comment Bld Prod Order Comment 03/11/18 03/11/18 03/11/18 17:00 17:00 17:00 WBC ND RBC ND Hgb ND Hct ND MCV ND MCH ND MCHC ND RDW ND Plt Count ND MPV ND Prelim Diff (Auto) Neut % (Auto) Lymph % (Auto) [place] % (Auto) Eos % (Auto) Baso % (Auto) Neut # (Auto) Lymph # (Auto) [place] # (Auto) Eos # (Auto) Baso # (Auto) WBC Differential Diff Scan Seg Neuts % (Manual) Band Neuts % (Manual) Lymphocytes % (Manual) Monocytes % (Manual) Metamyelocytes % (Man) Myelocytes % (Man) Abs Neuts (Manual) Nucleated RBCs/100 WBC Differential Comment Platelet Estimate Platelet Morphology Spherocytes Haptoglobin PT INR APTT Fibrinogen Puncture Site Patient Temperature O2 Saturation ABG pH ABG pCO2 ABG pO2 ABG HCO3 ABG O2 Content ABG Base Excess ABG Methemoglobin Hemoglobin Carboxyhemoglobin O2 Delivery Device Vent Setting Inspired O2 Critical Value Sodium ND Potassium ND Chloride ND Carbon Dioxide ND Anion Gap ND BUN ND Creatinine ND Estimated GFR ND POC Glucose Random Glucose ND Lactic Acid 4.2 H* Calcium ND Prot Corrected Calcium Phosphorus Magnesium Total Bilirubin ND AST ND ALT ND Alkaline Phosphatase ND Lactate Dehydrogenase Total Protein ND Albumin ND Chromogranin A Blood Type Antibody Screen [facility] Gel Crossmatch Blood Bank Comment Bld Prod Order Comment 03/11/18 03/11/18 03/11/18 17:00 17:00 18:11 WBC RBC Hgb Hct MCV MCH MCHC RDW Plt Count MPV Prelim Diff (Auto) Neut % (Auto) Lymph % (Auto) [place] % (Auto) Eos % (Auto) Baso % (Auto) Neut # (Auto) Lymph # (Auto) [place] # (Auto) Eos # (Auto) Baso # (Auto) WBC Differential Diff Scan Seg Neuts % (Manual) Band Neuts % (Manual) Lymphocytes % (Manual) Monocytes % (Manual) Metamyelocytes % (Man) Myelocytes % (Man) Abs Neuts (Manual) Nucleated RBCs/100 WBC Differential Comment Platelet Estimate Platelet Morphology Spherocytes Haptoglobin PT ND INR ND APTT ND Fibrinogen ND Puncture Site Patient Temperature O2 Saturation ABG pH ABG pCO2 ABG pO2 ABG HCO3 ABG O2 Content ABG Base Excess ABG Methemoglobin Hemoglobin Carboxyhemoglobin O2 Delivery Device Vent Setting Inspired O2 Critical Value Sodium Potassium Chloride Carbon Dioxide Anion Gap BUN Creatinine Estimated GFR POC Glucose Random Glucose Lactic Acid Calcium Prot Corrected Calcium Phosphorus Magnesium ND Total Bilirubin AST ALT Alkaline Phosphatase Lactate Dehydrogenase Total Protein Albumin Chromogranin A Blood Type Antibody Screen [facility] Gel Crossmatch Blood Bank Comment d Prod Order Comment 03/11/18 03/11/18 03/11/18 18:33 18:46 18:47 WBC RBC Hgb Hct MCV MCH MCHC RDW Plt Count MPV Prelim Diff (Auto) Neut % (Auto) Lymph % (Auto) [place] % (Auto) Eos % (Auto) Baso % (Auto) Neut # (Auto) Lymph # (Auto) [place] # (Auto) Eos # (Auto) Baso # (Auto) WBC Differential Diff Scan Seg Neuts % (Manual) Band Neuts % (Manual) Lymphocytes % (Manual) Monocytes % (Manual) Metamyelocytes % (Man) Myelocytes % (Man) Abs Neuts (Manual) Nucleated RBCs/100 WBC Differential Comment Platelet Estimate Platelet Morphology Spherocytes Haptoglobin PT INR APTT Fibrinogen Puncture Site Patient Temperature O2 Saturation ABG pH ABG pCO2 ABG pO2 ABG HCO3 ABG O2 Content ABG Base Excess ABG Methemoglobin Hemoglobin Carboxyhemoglobin O2 Delivery Device Vent Setting Inspired O2 Critical Value Sodium Potassium Chloride Carbon Dioxide Anion Gap BUN Creatinine Estimated GFR POC Glucose Random Glucose Lactic Acid Calcium Prot Corrected Calcium Phosphorus Magnesium Total Bilirubin AST ALT Alkaline Phosphatase Lactate Dehydrogenase Total Protein Albumin Chromogranin A Blood Type Antibody Screen [facility] [employer] Blood Bank Comment Bld Prod Order Comment 03/11/18 03/11/18 03/11/18 19:15 19:15 19:15 WBC 8.1 RBC 3.16 L Hgb 10.5 L Hct 28.5 L MCV 90.3 MCH 33.2 MCHC 36.7 H RDW 17.6 H D Plt Count 70 L MPV 8.7 Prelim Diff (Auto) Slide review pending Neut % (Auto) 88.9 H Lymph % (Auto) 4.8 L [place] % (Auto) 6.1 Eos % (Auto) 0.0 Baso % (Auto) 0.2 Neut # (Auto) 7.2 Lymph # (Auto) 0.4 L [place] # (Auto) 0.5 Eos # (Auto) 0.0 Baso # (Auto) 0.0 WBC Differential . Diff Scan Auto diff confirmed Seg Neuts % (Manual) Band Neuts % (Manual) Lymphocytes % (Manual) Monocytes % (Manual) Metamyelocytes % (Man) Myelocytes % (Man) Abs Neuts (Manual) Nucleated RBCs/100 WBC Differential Comment . Platelet Estimate Low L Platelet Morphology Normal Spherocytes 2+ H Haptoglobin PT 19.3 H INR 1.9 APTT 117.1 H* D Fibrinogen 239 Puncture Site Patient Temperature O2 Saturation ABG pH ABG pCO2 ABG pO2 ABG HCO3 ABG O2 Content ABG Base Excess ABG Methemoglobin Hemoglobin Carboxyhemoglobin O2 Delivery Device Vent Setting Inspired O2 Critical Value Sodium 137 Potassium 3.9 Chloride 90 L Carbon Dioxide 34.7 H Anion Gap 12 BUN 30 H Creatinine 1.81 H Estimated GFR 29 L POC Glucose Random Glucose 247 H Lactic Acid Calcium 8.4 L D Prot Corrected Calcium Phosphorus Magnesium 1.6 Total Bilirubin 5.3 H AST 329 H ALT 90 H Alkaline Phosphatase 60 Lactate Dehydrogenase Total Protein 5.4 L Albumin 3.4 Chromogranin A Blood Type Antibody Screen [facility] Gel Crossmatch Blood Bank Comment [place] Prod Order Comment 03/11/18 03/11/18 03/11/18 21:43 21:44 Unknown WBC RBC Hgb Hct MCV MCH MCHC RDW Plt Count MPV Prelim Diff (Auto) Neut % (Auto) Lymph % (Auto) [place] % (Auto) Eos % (Auto) Baso % (Auto) Neut # (Auto) Lymph # (Auto) [place] # (Auto) Eos # (Auto) Baso # (Auto) WBC Differential Diff Scan Seg Neuts % (Manual) Band Neuts % (Manual) Lymphocytes % (Manual) Monocytes % (Manual) Metamyelocytes % (Man) Myelocytes % (Man) Abs Neuts (Manual) Nucleated RBCs/100 WBC Differential Comment Platelet Estimate Platelet Morphology Spherocytes Haptoglobin PT INR APTT Fibrinogen Puncture Site Patient Temperature O2 Saturation ABG pH ABG pCO2 ABG pO2 ABG HCO3 ABG O2 Content ABG Base Excess ABG Methemoglobin Hemoglobin Carboxyhemoglobin O2 Delivery Device Vent Setting Inspired O2 Critical Value Sodium Potassium Chloride Carbon Dioxide Anion Gap BUN Creatinine Estimated GFR POC Glucose 330 H 344 H Random Glucose Lactic Acid Calcium Prot Corrected Calcium Phosphorus Magnesium Total Bilirubin AST ALT Alkaline Phosphatase Lactate Dehydrogenase Total Protein Albumin Chromogranin A Blood Type Antibody Screen [facility] Gel [employer], [facility] Blood Bank Comment d Prod Order Comment 03/12/18 03/12/18 03/12/18 04:03 04:03 04:03 WBC RBC Hgb Hct MCV MCH MCHC RDW Plt Count MPV Prelim Diff (Auto) Neut % (Auto) Lymph % (Auto) [place] % (Auto) Eos % (Auto) Baso % (Auto) Neut # (Auto) Lymph # (Auto) [place] # (Auto) Eos # (Auto) Baso # (Auto) WBC Differential Diff Scan Seg Neuts % (Manual) Band Neuts % (Manual) Lymphocytes % (Manual) Monocytes % (Manual) Metamyelocytes % (Man) Myelocytes % (Man) Abs Neuts (Manual) Nucleated RBCs/100 WBC Differential Comment Platelet Estimate Platelet Morphology Spherocytes Haptoglobin PT 15.4 H INR 1.5 APTT 58.2 H D Fibrinogen Puncture Site Patient Temperature O2 Saturation ABG pH ABG pCO2 ABG pO2 ABG HCO3 ABG O2 Content ABG Base Excess ABG Methemoglobin Hemoglobin Carboxyhemoglobin O2 Delivery Device Vent Setting Inspired O2 Critical Value Sodium 133 L Potassium 3.2 L Chloride 84 L Carbon Dioxide 35.7 H Anion Gap 13 BUN 31 H Creatinine 1.77 H Estimated GFR 29 L POC Glucose Random Glucose 256 H Lactic Acid 3.5 H Calcium 8.2 L Prot Corrected Calcium Phosphorus 3.7 Magnesium 2.2 D Total Bilirubin 8.7 H AST 373 H ALT 102 H Alkaline Phosphatase 77 Lactate Dehydrogenase Total Protein 6.5 D Albumin 3.6 Chromogranin A Blood Type Antibody Screen [facility] Gel Crossmatch Blood Bank Comment Bld Prod Order Comment 03/12/18 03/12/18 03/12/18 06:10 08:52 08:56 WBC RBC Hgb Hct MCV MCH MCHC RDW Plt Count MPV Prelim Diff (Auto) Neut % (Auto) Lymph % (Auto) [place] % (Auto) Eos % (Auto) Baso % (Auto) Neut # (Auto) Lymph # (Auto) [place] # (Auto) Eos # (Auto) Baso # (Auto) WBC Differential Diff Scan Seg Neuts % (Manual) Band Neuts % (Manual) Lymphocytes % (Manual) Monocytes % (Manual) Metamyelocytes % (Man) Myelocytes % (Man) Abs Neuts (Manual) Nucleated RBCs/100 WBC Differential Comment Platelet Estimate Platelet Morphology Spherocytes Haptoglobin PT INR APTT Fibrinogen Puncture Site Art line Patient Temperature 98.6 O2 Saturation 96 ABG pH 7.52 H* ABG pCO2 44 H ABG pO2 160 H ABG HCO3 36 H ABG O2 Content 11.2 L ABG Base Excess 11.9 H ABG Methemoglobin 1.6 Hemoglobin 8.0 L Carboxyhemoglobin 1.7 O2 Delivery Device Ventilator Vent Setting Prvc/ac Inspired O2 60 Critical Value Yes Sodium Potassium Chloride Carbon Dioxide Anion Gap BUN Creatinine Estimated GFR POC Glucose Random Glucose Lactic Acid Calcium Prot Corrected Calcium Phosphorus Magnesium Total Bilirubin AST ALT Alkaline Phosphatase Lactate Dehydrogenase Total Protein Albumin Chromogranin A Blood Type Antibody Screen [facility]TS Gel Crossmatch See Detail Blood Bank Comment Bld Prod Order Comment 03/12/18 03/12/18 03/12/18 09:15 09:26 09:26 WBC 14.0 H D RBC 1.38 L Hgb 5.0 L* D Hct 13.8 L* MCV 100.2 H D MCH 36.2 H MCHC 36.2 H RDW 18.6 H Plt Count 94 L D MPV 8.9 Prelim Diff (Auto) Neut % (Auto) Lymph % (Auto) [place] % (Auto) Eos % (Auto) Baso % (Auto) Neut # (Auto) Lymph # (Auto) [place] # (Auto) Eos # (Auto) Baso # (Auto) WBC Differential Diff Scan Seg Neuts % (Manual) Band Neuts % (Manual) Lymphocytes % (Manual) Monocytes % (Manual) Metamyelocytes % (Man) Myelocytes % (Man) Abs Neuts (Manual) Nucleated RBCs/100 WBC Differential Comment Platelet Estimate Platelet Morphology Spherocytes Haptoglobin PT INR APTT Fibrinogen 282 Puncture Site Patient Temperature O2 Saturation ABG pH ABG pCO2 ABG pO2 ABG HCO3 ABG O2 Content ABG Base Excess ABG Methemoglobin Hemoglobin Carboxyhemoglobin O2 Delivery Device Vent Setting Inspired O2 Critical Value Sodium Potassium Chloride Carbon Dioxide Anion Gap BUN Creatinine Estimated GFR POC Glucose 298 H Random Glucose Lactic Acid Calcium Prot Corrected Calcium Phosphorus Magnesium Total Bilirubin AST ALT Alkaline Phosphatase Lactate Dehydrogenase Total Protein Albumin Chromogranin A Blood Type Antibody Screen [facility] Gel Crossmatch Blood Bank Comment Bld Prod Order Comment 03/12/18 03/12/18 03/12/18 10:19 12:07 14:40 WBC 10.5 RBC 2.66 L Hgb 8.4 L D Hct 23.7 L MCV 89.0 D MCH 31.4 MCHC 35.2 RDW 18.9 H Plt Count 63 L D MPV 8.7 Prelim Diff (Auto) Neut % (Auto) Lymph % (Auto) [place] % (Auto) Eos % (Auto) Baso % (Auto) Neut # (Auto) Lymph # (Auto) [place] # (Auto) Eos # (Auto) Baso # (Auto) WBC Differential Diff Scan Seg Neuts % (Manual) Band Neuts % (Manual) Lymphocytes % (Manual) Monocytes % (Manual) Metamyelocytes % (Man) Myelocytes % (Man) Abs Neuts (Manual) Nucleated RBCs/100 WBC Differential Comment Platelet Estimate Platelet Morphology Spherocytes Haptoglobin PT INR APTT Fibrinogen Puncture Site Patient Temperature O2 Saturation ABG pH ABG pCO2 ABG pO2 ABG HCO3 ABG O2 Content ABG Base Excess ABG Methemoglobin Hemoglobin Carboxyhemoglobin O2 Delivery Device Vent Setting Inspired O2 Critical Value Sodium Potassium Chloride Carbon Dioxide Anion Gap BUN Creatinine Estimated GFR POC Glucose 292 H Random Glucose Lactic Acid Calcium Prot Corrected Calcium Phosphorus Magnesium Total Bilirubin AST ALT Alkaline Phosphatase Lactate Dehydrogenase Total Protein Albumin Chromogranin A Blood Type Antibody Screen [facility] Gel Crossmatch See Detail Blood Bank Comment Bld Prod Order Comment 03/12/18 03/12/18 03/12/18 14:40 16:00 16:00 WBC RBC Hgb Hct MCV MCH MCHC RDW Plt Count MPV Prelim Diff (Auto) Neut % (Auto) Lymph % (Auto) [place] % (Auto) Eos % (Auto) Baso % (Auto) Neut # (Auto) Lymph # (Auto) [place] # (Auto) Eos # (Auto) Baso # (Auto) WBC Differential Diff Scan Seg Neuts % (Manual) Band Neuts % (Manual) Lymphocytes % (Manual) Monocytes % (Manual) Metamyelocytes % (Man) Myelocytes % (Man) Abs Neuts (Manual) Nucleated RBCs/100 WBC Differential Comment Platelet Estimate Platelet Morphology Spherocytes Haptoglobin PT 15.5 H INR 1.5 APTT 56.6 H Fibrinogen 249 Puncture Site Patient Temperature O2 Saturation ABG pH ABG pCO2 ABG pO2 ABG HCO3 ABG O2 Content ABG Base Excess ABG Methemoglobin Hemoglobin Carboxyhemoglobin O2 Delivery Device Vent Setting Inspired O2 Critical Value Sodium Potassium Chloride Carbon Dioxide Anion Gap BUN Creatinine Estimated GFR POC Glucose Random Glucose Lactic Acid Calcium Prot Corrected Calcium Phosphorus Magnesium Total Bilirubin AST ALT Alkaline Phosphatase Lactate Dehydrogenase Total Protein Albumin Chromogranin A Blood Type Antibody Screen [facility] Gel Crossmatch Blood Bank Comment Bld Prod Order Comment 03/12/18 03/12/18 03/12/18 16:50 16:50 17:13 WBC RBC Hgb Hct MCV MCH MCHC RDW Plt Count MPV Prelim Diff (Auto) Neut % (Auto) Lymph % (Auto) [place] % (Auto) Eos % (Auto) Baso % (Auto) Neut # (Auto) Lymph # (Auto) [place] # (Auto) Eos # (Auto) Baso # (Auto) WBC Differential Diff Scan Seg Neuts % (Manual) Band Neuts % (Manual) Lymphocytes % (Manual) Monocytes % (Manual) Metamyelocytes % (Man) Myelocytes % (Man) Abs Neuts (Manual) Nucleated RBCs/100 WBC Differential Comment Platelet Estimate Platelet Morphology Spherocytes Haptoglobin 26 L PT INR APTT Fibrinogen Puncture Site Patient Temperature O2 Saturation ABG pH ABG pCO2 ABG pO2 ABG HCO3 ABG O2 Content ABG Base Excess ABG Methemoglobin Hemoglobin Carboxyhemoglobin O2 Delivery Device Vent Setting Inspired O2 Critical Value Sodium 133 L Potassium 3.9 Chloride 91 L Carbon Dioxide 32.2 H Anion Gap 10 BUN 31 H Creatinine 1.57 H Estimated GFR 34 L POC Glucose 297 H Random Glucose 253 H Lactic Acid Calcium 6.3 L* D Prot Corrected Calcium 7.8 L Phosphorus Magnesium Total Bilirubin 6.6 H AST 227 H ALT 69 H Alkaline Phosphatase 56 Lactate Dehydrogenase 485 H Total Protein 4.2 L D Albumin 2.2 L D Chromogranin A Blood Type Antibody Screen [facility] Gel Crossmatch Blood Bank Comment d Prod Order Comment 03/12/18 03/12/18 03/13/18 20:53 22:44 04:06 WBC 11.3 H RBC 2.43 L Hgb 7.4 L Hct 20.8 L* MCV 85.7 MCH 30.7 MCHC 35.8 RDW 15.9 D Plt Count 57 L MPV 8.2 Prelim Diff (Auto) Neut % (Auto) Lymph % (Auto) [place] % (Auto) Eos % (Auto) Baso % (Auto) Neut # (Auto) Lymph # (Auto) [place] # (Auto) Eos # (Auto) Baso # (Auto) WBC Differential Diff Scan Seg Neuts % (Manual) Band Neuts % (Manual) Lymphocytes % (Manual) Monocytes % (Manual) Metamyelocytes % (Man) Myelocytes % (Man) Abs Neuts (Manual) Nucleated RBCs/100 WBC Differential Comment Platelet Estimate Platelet Morphology Spherocytes Haptoglobin PT INR APTT Fibrinogen Puncture Site Patient Temperature O2 Saturation ABG pH ABG pCO2 ABG pO2 ABG HCO3 ABG O2 Content ABG Base Excess ABG Methemoglobin Hemoglobin Carboxyhemoglobin O2 Delivery Device Vent Setting Inspired O2 Critical Value Sodium Potassium Chloride Carbon Dioxide Anion Gap BUN Creatinine Estimated GFR POC Glucose 310 H Random Glucose Lactic Acid 3.5 H Calcium Prot Corrected Calcium Phosphorus Magnesium Total Bilirubin AST ALT Alkaline Phosphatase Lactate Dehydrogenase Total Protein Albumin Chromogranin A Blood Type Antibody Screen [facility] Gel Crossmatch Blood Bank Comment d Prod Order Comment 03/13/18 03/13/18 03/13/18 04:06 04:06 04:06 WBC RBC Hgb Hct MCV MCH MCHC RDW Plt Count MPV Prelim Diff (Auto) Neut % (Auto) Lymph % (Auto) [place] % (Auto) Eos % (Auto) Baso % (Auto) Neut # (Auto) Lymph # (Auto) [place] # (Auto) Eos # (Auto) Baso # (Auto) WBC Differential Diff Scan Seg Neuts % (Manual) Band Neuts % (Manual) Lymphocytes % (Manual) Monocytes % (Manual) Metamyelocytes % (Man) Myelocytes % (Man) Abs Neuts (Manual) Nucleated RBCs/100 WBC Differential Comment Platelet Estimate Platelet Morphology Spherocytes Haptoglobin PT 15.8 H INR 1.6 APTT 57.6 H Fibrinogen Puncture Site Patient Temperature O2 Saturation ABG pH ABG pCO2 ABG pO2 ABG HCO3 ABG O2 Content ABG Base Excess ABG Methemoglobin Hemoglobin Carboxyhemoglobin O2 Delivery Device Vent Setting Inspired O2 Critical Value Sodium 133 L Potassium 2.9 L* D Chloride 87 L Carbon Dioxide 33.3 H Anion Gap 13 BUN 32 H Creatinine 1.58 H Estimated GFR 34 L POC Glucose Random Glucose 248 H Lactic Acid Calcium 6.4 L* Prot Corrected Calcium 7.6 L Phosphorus 3.5 Magnesium 1.5 D Total Bilirubin 6.9 H AST 193 H ALT 71 H Alkaline Phosphatase 62 Lactate Dehydrogenase Total Protein 4.7 L Albumin 2.5 L Chromogranin A Blood Type Antibody Screen [facility] Gel Crossmatch Blood Bank Comment Bld Prod Order Comment 03/13/18 03/13/18 03/13/18 04:10 08:19 08:19 WBC RBC Hgb Hct MCV MCH MCHC RDW Plt Count MPV Prelim Diff (Auto) Neut % (Auto) Lymph % (Auto) [place] % (Auto) Eos % (Auto) Baso % (Auto) Neut # (Auto) Lymph # (Auto) [place] # (Auto) Eos # (Auto) Baso # (Auto) WBC Differential Diff Scan Seg Neuts % (Manual) Band Neuts % (Manual) Lymphocytes % (Manual) Monocytes % (Manual) Metamyelocytes % (Man) Myelocytes % (Man) Abs Neuts (Manual) Nucleated RBCs/100 WBC Differential Comment Platelet Estimate Platelet Morphology Spherocytes Haptoglobin PT INR APTT Fibrinogen Puncture Site Art line Patient Temperature 98.6 O2 Saturation 96 ABG pH 7.49 H ABG pCO2 42 ABG pO2 140 H ABG HCO3 31 H ABG O2 Content 11.1 L ABG Base Excess 7.6 H ABG Methemoglobin 1.7 Hemoglobin 8.0 L Carboxyhemoglobin 1.5 O2 Delivery Device Ventilator Vent Setting Prvc/ac Inspired O2 50 Critical Value No Sodium Potassium Chloride Carbon Dioxide Anion Gap BUN Creatinine Estimated GFR POC Glucose Random Glucose Lactic Acid 2.2 H Calcium Prot Corrected Calcium Phosphorus Magnesium Total Bilirubin AST ALT Alkaline Phosphatase Lactate Dehydrogenase Total Protein Albumin Chromogranin A Blood Type A Positive Antibody Screen Negative [facility] Gel Crossmatch See Detail Blood Bank Comment Bld Prod Order Comment 03/13/18 03/13/18 03/13/18 11:55 11:55 11:55 WBC 9.2 RBC 2.45 L Hgb 7.6 L Hct 21.4 L MCV 87.3 MCH 31.0 MCHC 35.6 RDW 16.1 Plt Count 49 L MPV 7.6 Prelim Diff (Auto) Slide review pending Neut % (Auto) 86.3 H Lymph % (Auto) 5.3 L [place] % (Auto) 7.1 Eos % (Auto) 0.1 Baso % (Auto) 1.2 Neut # (Auto) 7.9 H Lymph # (Auto) 0.5 L [place] # (Auto) 0.7 Eos # (Auto) 0.0 Baso # (Auto) 0.1 WBC Differential Manual diff final Diff Scan Seg Neuts % (Manual) 77 H Band Neuts % (Manual) 15 H Lymphocytes % (Manual) 5 L Monocytes % (Manual) 3 Metamyelocytes % (Man) Myelocytes % (Man) Abs Neuts (Manual) 8.5 H Nucleated RBCs/100 WBC 6 H Differential Comment . Platelet Estimate Low L Platelet Morphology Normal Spherocytes Haptoglobin PT 14.4 H INR 1.4 APTT Fibrinogen Puncture Site Patient Temperature O2 Saturation ABG pH ABG pCO2 ABG pO2 ABG HCO3 ABG O2 Content ABG Base Excess ABG Methemoglobin Hemoglobin Carboxyhemoglobin O2 Delivery Device Vent Setting Inspired O2 Critical Value Sodium 132 L Potassium 3.4 L Chloride 87 L Carbon Dioxide 32.4 H Anion Gap 13 BUN 32 H Creatinine 1.46 H Estimated GFR 37 L POC Glucose Random Glucose 244 H Lactic Acid Calcium 6.7 L* Prot Corrected Calcium 7.7 L Phosphorus Magnesium Total Bilirubin 6.4 H AST 171 H ALT 63 H Alkaline Phosphatase 66 Lactate Dehydrogenase Total Protein 5.1 L Albumin 2.7 L Chromogranin A Blood Type Antibody Screen [facility] Gel Crossmatch Blood Bank Comment Bld Prod Order Comment 03/13/18 03/13/18 03/13/18 12:38 17:39 21:03 WBC RBC Hgb Hct MCV MCH MCHC RDW Plt Count MPV Prelim Diff (Auto) Neut % (Auto) Lymph % (Auto) [place] % (Auto) Eos % (Auto) Baso % (Auto) Neut # (Auto) Lymph # (Auto) [place] # (Auto) Eos # (Auto) Baso # (Auto) WBC Differential Diff Scan Seg Neuts % (Manual) Band Neuts % (Manual) Lymphocytes % (Manual) Monocytes % (Manual) Metamyelocytes % (Man) Myelocytes % (Man) Abs Neuts (Manual) Nucleated RBCs/100 WBC Differential Comment Platelet Estimate Platelet Morphology Spherocytes Haptoglobin PT INR APTT Fibrinogen Puncture Site Patient Temperature O2 Saturation ABG pH ABG pCO2 ABG pO2 ABG HCO3 ABG O2 Content ABG Base Excess ABG Methemoglobin Hemoglobin Carboxyhemoglobin O2 Delivery Device Vent Setting Inspired O2 Critical Value Sodium Potassium Chloride Carbon Dioxide Anion Gap BUN Creatinine Estimated GFR POC Glucose 253 H 177 H 186 H Random Glucose Lactic Acid Calcium Prot Corrected Calcium Phosphorus Magnesium Total Bilirubin AST ALT Alkaline Phosphatase Lactate Dehydrogenase Total Protein Albumin Chromogranin A Blood Type Antibody Screen [facility] Gel Crossmatch Blood Bank Comment Bld Prod Order Comment 03/14/18 03/14/18 03/14/18 04:45 04:45 04:45 WBC 9.0 RBC 2.17 L Hgb 6.9 L* Hct 19.2 L* MCV 88.7 MCH 31.9 MCHC 36.0 RDW 15.7 Plt Count 30 L D MPV 7.7 Prelim Diff (Auto) Neut % (Auto) Lymph % (Auto) [place] % (Auto) Eos % (Auto) Baso % (Auto) Neut # (Auto) Lymph # (Auto) [place] # (Auto) Eos # (Auto) Baso # (Auto) WBC Differential Diff Scan Seg Neuts % (Manual) Band Neuts % (Manual) Lymphocytes % (Manual) Monocytes % (Manual) Metamyelocytes % (Man) Myelocytes % (Man) Abs Neuts (Manual) Nucleated RBCs/100 WBC Differential Comment Platelet Estimate Platelet Morphology Spherocytes Haptoglobin PT 14.9 H INR 1.5 APTT 53.5 H Fibrinogen 175 L Puncture Site Patient Temperature O2 Saturation ABG pH ABG pCO2 ABG pO2 ABG HCO3 ABG O2 Content ABG Base Excess ABG Methemoglobin Hemoglobin Carboxyhemoglobin O2 Delivery Device Vent Setting Inspired O2 Critical Value Sodium 134 L Potassium 2.9 L* Chloride 89 L Carbon Dioxide 32.2 H Anion Gap 13 BUN 32 H Creatinine 1.36 H Estimated GFR 40 L POC Glucose Random Glucose 175 H Lactic Acid Calcium 7.8 L D Prot Corrected Calcium Phosphorus 2.9 Magnesium 1.7 Total Bilirubin 7.3 H AST 204 H ALT 73 H Alkaline Phosphatase 63 Lactate Dehydrogenase 528 H Total Protein 4.9 L Albumin 2.4 L Chromogranin A Blood Type Antibody Screen [facility] Gel Crossmatch Blood Bank Comment Bld Prod Order Comment 03/14/18 03/14/18 03/14/18 05:47 05:47 08:07 WBC RBC Hgb Hct MCV MCH MCHC RDW Plt Count MPV Prelim Diff (Auto) Neut % (Auto) Lymph % (Auto) [place] % (Auto) Eos % (Auto) Baso % (Auto) Neut # (Auto) Lymph # (Auto) [place] # (Auto) Eos # (Auto) Baso # (Auto) WBC Differential Diff Scan Seg Neuts % (Manual) Band Neuts % (Manual) Lymphocytes % (Manual) Monocytes % (Manual) Metamyelocytes % (Man) Myelocytes % (Man) Abs Neuts (Manual) Nucleated RBCs/100 WBC Differential Comment Platelet Estimate Platelet Morphology Spherocytes Haptoglobin PT INR APTT Fibrinogen Puncture Site Patient Temperature O2 Saturation ABG pH ABG pCO2 ABG pO2 ABG HCO3 ABG O2 Content ABG Base Excess ABG Methemoglobin Hemoglobin Carboxyhemoglobin O2 Delivery Device Vent Setting Inspired O2 Critical Value Sodium Potassium Chloride Carbon Dioxide Anion Gap BUN Creatinine Estimated GFR POC Glucose 200 H Random Glucose Lactic Acid Calcium Prot Corrected Calcium Phosphorus Magnesium Total Bilirubin AST ALT Alkaline Phosphatase Lactate Dehydrogenase Total Protein Albumin Chromogranin A Blood Type Antibody Screen [facility] Gel Crossmatch See Detail Blood Bank Comment Bld Prod Order Comment 03/14/18 03/14/18 03/14/18 09:15 10:38 10:39 WBC 8.8 RBC 2.81 L Hgb 8.8 L Hct 24.7 L MCV 88.2 MCH 31.4 MCHC 35.6 RDW 14.9 Plt Count 44 L D MPV 7.3 Prelim Diff (Auto) Slide review pending Neut % (Auto) 92.4 H Lymph % (Auto) 2.0 L [place] % (Auto) 5.3 Eos % (Auto) 0.0 Baso % (Auto) 0.3 Neut # (Auto) 8.2 H Lymph # (Auto) 0.2 L [place] # (Auto) 0.5 Eos # (Auto) 0.0 Baso # (Auto) 0.0 WBC Differential Manual diff final Diff Scan Seg Neuts % (Manual) 79 H Band Neuts % (Manual) 8 H Lymphocytes % (Manual) 3 L Monocytes % (Manual) 5 Metamyelocytes % (Man) 3 H Myelocytes % (Man) 2 H Abs Neuts (Manual) 8.1 H Nucleated RBCs/100 WBC 6 H Differential Comment . Platelet Estimate Low L Platelet Morphology Normal Spherocytes Haptoglobin PT INR APTT Fibrinogen Puncture Site Patient Temperature O2 Saturation ABG pH ABG pCO2 ABG pO2 ABG HCO3 ABG O2 Content ABG Base Excess ABG Methemoglobin Hemoglobin Carboxyhemoglobin O2 Delivery Device Vent Setting Inspired O2 Critical Value Sodium Potassium Chloride Carbon Dioxide Anion Gap BUN Creatinine Estimated GFR POC Glucose Random Glucose Lactic Acid Calcium Prot Corrected Calcium Phosphorus Magnesium Total Bilirubin AST ALT Alkaline Phosphatase Lactate Dehydrogenase Total Protein Albumin Chromogranin A Blood Type Antibody Screen [employer] Blood Bank Comment Bld Prod Order Comment 03/14/18 12:35 WBC RBC Hgb Hct MCV MCH MCHC RDW Plt Count MPV Prelim Diff (Auto) Neut % (Auto) Lymph % (Auto) [place] % (Auto) Eos % (Auto) Baso % (Auto) Neut # (Auto) Lymph # (Auto) [place] # (Auto) Eos # (Auto) Baso # (Auto) WBC Differential Diff Scan Seg Neuts % (Manual) Band Neuts % (Manual) Lymphocytes % (Manual) Monocytes % (Manual) Metamyelocytes % (Man) Myelocytes % (Man) Abs Neuts (Manual) Nucleated RBCs/100 WBC Differential Comment Platelet Estimate Platelet Morphology Spherocytes Haptoglobin PT INR APTT Fibrinogen Puncture Site Patient Temperature O2 Saturation ABG pH ABG pCO2 ABG pO2 ABG HCO3 ABG O2 Content ABG Base Excess ABG Methemoglobin Hemoglobin Carboxyhemoglobin O2 Delivery Device Vent Setting Inspired O2 Critical Value Sodium Potassium Chloride Carbon Dioxide Anion Gap BUN Creatinine Estimated GFR POC Glucose 184 H Random Glucose Lactic Acid Calcium Prot Corrected Calcium Phosphorus Magnesium Total Bilirubin AST ALT Alkaline Phosphatase Lactate Dehydrogenase Total Protein Albumin Chromogranin A Blood Type Antibody Screen [employer] Gel Crossmatch Blood Bank Comment Bld Prod Order Comment Result Diagrams: 03/14/18 09:15 03/14/18 04:45 Microbiology: Microbiology 03/11/18 20:06 Aerobic Blood Culture - Preliminary Blood - Peripheral No growth in 3 days Anaerobic Blood Culture - Preliminary No growth in 3 days 03/11/18 20:00 Aerobic Blood Culture - Preliminary Blood - Peripheral No growth in 3 days Anaerobic Blood Culture - Preliminary No growth in 3 days 03/10/18 07:28 Aerobic Blood Culture - Preliminary Blood - Peripheral No growth in 4 days Anaerobic Blood Culture - Preliminary No growth in 4 days 03/10/18 07:22 Aerobic Blood Culture - Preliminary Blood - Peripheral No growth in 4 days Anaerobic Blood Culture - Preliminary No growth in 4 days 03/12/18 04:15 Gram Stain - Final Sputum - Oral Tracheal Aspirate Sputum Culture - Preliminary Heavy growth normal respiratory tierney at 24 hours 03/11/18 15:55 Urine Culture - Final Catheterized Urine No growth in 48 hours 03/10/18 09:00 Urine Culture - Final Catheterized Urine No growth in 48 hours Imaging: ITS Impressions Abdomen MRI 03/05/18 00:00 CONCLUSION: 1. 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 Celiac artery and YARI are patent. Typically, stenosis of a single mesenteric artery should not cause significant mesenteric ischemia. However, in a rare but appropriate clinical setting this may be symptomatic. 2. Diffuse atherosclerotic disease in the abdominal aorta. 3. Small bilateral pleural effusions. 4. Hepatic steatosis. Abdomen X-Ray 03/06/18 23:18 CONCLUSION: Benign-appearing abdomen. 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 Chest CTA 03/07/18 00:00 CONCLUSION: 1. Pulmonary edema and moderate bilateral pleural effusions with dependent/ compressive atelectasis. 2. No pulmonary embolus. 3. Coronary artery calcification. Abdomen/Pelvis CT 03/10/18 00:29 CONCLUSION: 1. Unchanged exam. Bilateral pleural effusions and associated atelectasis. 2. Hepatomegaly with some lobulation to the contour and small volume ascites. This raises concern for possible cirrhosis. 3. Coronary artery atherosclerotic calcifications. Gallbladder Ultrasound 03/12/18 00:00 CONCLUSION: 1. Cirrhotic liver with small amount of abdominal ascites. 2. Gallbladder wall thickening. Chest X-Ray 03/14/18 09:20 CONCLUSION: Impella device has retracted back slightly from its previous position Continued slight improvement in aeration Procedures: 03/05 EGD colonoscopy 03/07 thoracentesis 03/10 intubated, left heart cath, impella placed, arterial line placed, central lne placed, right IJ PA catheter placed Assessment and Plan - Disease Oriented Problem List (1) Cardiogenic shock (2) Systolic and diastolic CHF, acute (3) Hypotension (4) GIB (gastrointestinal bleeding) (5) Acute kidney injury (6) Ischemic leg Pertinent Non-Medical Issues: Psychosocial: , lives with . Has 2 sons. Unemployed. Spiritual: no anabaptism affiliation Legal: Pt not capacitated to make medical decisions. In absence of designated HCS, proxy decision making falls to , per [place] statutes. Ethical issues impacting care: none. Important Contacts: Jay Henriquez [phone] Son Luis Henriquez [phone] Prognosis: This is a 58 yo female with hx non hodgkins lymphoma in remission, etoh abuse, 40 pack years, who presented 03/02 with 4 month hx diarrhea. AFter she was admitted she developed new onset cardiomyopathy and subsequently severe cardiogenic shock. Had left heart cath and placement of impella. EF initially 30 -35%, now estimated to be 10-15%. Currently on multiple pressors and amiodarone. RLE ischemic and nonfunctional, cannot be revascularized d/t presence impella. Suffered LOVE, now LFTs are rising and it appears she has cirrhosis. Continued drops in hgb requiring mult transfusions. Unlikely she is candidate for a heart transplant. Her prognosis is poor. Code Status: Alternative Code (intubation only) Plan: - LEGAL DECISION MAKER - Pt not capacitated to make medical decisions and may not regain capacity. In the absence of a designated HCS, per [place] statutes proxy decision making falls to her . - CODE STATUS - alt code intubation only - GOALS - Goals aggressive short of alt code intubation only. Family wants to wait for a few days to see if pt can be weaned from impella and to see if there are any improvements over all. Brief telephone conversation with . Provided medical update. Answered all questions to the best of my ability. 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 EF 10-15%. on mult pressors. Intubated on vent. has PRN duonebs, jyothi symbicort. no further recs * pain - multifactorial, 2/2 mult lines, catheters, procedures. No sign pain on my eval. On fentanyl 7.5ml/hr. has morphine 2mg IV q4h PRN. no further recs at this time * diarrhea - unclear etiology. had EGD colonoscopy this admission, bx benign. ? viral colitis. WBC WNL. on zosyn, flagyl. on questran. no further recs * debility - unlikely if she survives she will return to baseline. cardiac status unlikely to allow for any aggressive rehab. RLE dusky, cool, mottled. risk for losing RLE d/t presence impella. - d/w foster care case manager will continue to follow during hospital course as condition evolves, to assist patient/decision-maker with understanding of medical conditions, weighing benefits/burdens of treatment options, for clarification of goals of treatment. Additionally will assist with any symptoms of palliative concern Attestation Attestation: To help prompt me to consider important information that might be impacting today's encounter and assessment, information from prior notes written by myself or my colleagues may have been "brought forward" into today's note. My signature on this note, however, is an attestation that I personally performed the exam, history, and/or decision-making noted today, and, unless otherwise indicated, the interactions with patient, family, and staff as well as the review of records all occurred today. I also attest that the listed assessment and stated plan reflect my best clinical judgment today based on the combination of historical information, prior notes, and today's exam/ interactions. When time spent is documented, it refers only to time spent today by the signer, or if indicated, combined time spent today by collaborating physician/nurse practitioner.
--- NOTE | 2018-03-14 13:57 | ECHRPT ---
Indication: CONCLUSIONS The left ventricle is not well visualized. Percutaneous left ventricular assist device is noted across the aortic valve into the left ventricle . Positioning appears to be more aortic. Repositioning was performed with insertion of the device in a more appropriate position with confirmed hemodynamic improvement on both invasive tracings and arterial blood pressure monitoring. BP: / HR: Rhythm: Technical Quality: FINDINGS LEFT VENTRICLE The left ventricle is not well visualized. Percutaneous left ventricular assist device is noted across the aortic valve into the left ventricle . Positioning appears to be more aortic. Repositioning was performed with insertion of the device in a more appropriate position with confirmed hemodynamic improvement on both invasive tracings and arterial blood pressure monitoring. Rashid Pickett MD, FACC (Electronically Signed) Final Date:14 March 2018 13:56
[2018-03-14 16:03] LABS: Hematocrit 24.4 % (35.0-46.0); Hemoglobin 8.6 gm/dL (11.6-15.3); Mean Corpuscular HGB Conc 35.4 % (32.0-36.0); Mean Corpuscular Hemoglobin 31.9 pg (27.0-34.0); Mean Corpuscular Volume 90.2 fL (80.0-100.0); Mean Platelet Volume 7.6 fL (7.0-11.0); Platelet Count 57 th/mm3 (150-450); White Blood Count 10.9 th/mm3 (4.0-11.0)
[2018-03-14 16:26] LABS: Calcium 7.7 mg/dL (8.5-10.1); Carbon Dioxide 29.9 meq/L (21.0-32.0)
[2018-03-14 16:42] LABS: ABG PCO2 42 mmHg (38-42); ABG PO2 76 mmHG (61-120)
[2018-03-14] MEDS: Vasopressin Inj 40 UNIT in Dextrose 5% in Water Inj 98 ML IV.CONT PRN ×4 (17:10→22:18)
[2018-03-15] MEDS: Piperacil/Tazo 3.375 GM Premix 50 ML IV.SIG SCH ×3 (00:33→11:52)
[2018-03-15] MEDS: Hydrocortisone/Pramoxine Foam 10 GM Can RECTAL SCH ×2 (03:32→09:33)
[2018-03-15 04:48] LABS: Hematocrit 24.4 % (35.0-46.0); Hemoglobin 8.8 gm/dL (11.6-15.3); Mean Corpuscular Hemoglobin 32.2 pg (27.0-34.0); Mean Corpuscular Volume 88.7 fL (80.0-100.0); Mean Platelet Volume 8.1 fL (7.0-11.0); Platelet Count 42 th/mm3 (150-450); Red Blood Count 2.75 mil/mm3 (4.00-5.30); Red Cell Distribution Width 14.4 % (11.6-17.2); White Blood Count 13.2 th/mm3 (4.0-11.0)
[2018-03-15 04:52] LABS: Mean Corpuscular HGB Conc 36.3 % (32.0-36.0)
[2018-03-15] MEDS: MethylPREDNISolone Sod Succinate Inj 125 MG/2 ML Vial IV.PUSH SCH (04:57)
[2018-03-15 05:10] LABS: Alanine Aminotransferase 102 U/L (10-53); Albumin 2.3 g/dL (3.4-5.0); Anion Gap 12 meq/L (5-15); Aspartate Aminotransferase 287 U/L (15-37); Blood Urea Nitrogen 33 mg/dL (7-18); Calcium 7.5 mg/dL (8.5-10.1); Carbon Dioxide 28.7 meq/L (21.0-32.0); Chloride 93 meq/L (98-107); Glomerular Filtration Rate 43 mL/min (>89); Glucose,Random 95 mg/dL (74-106); Magnesium 1.7 mg/dL (1.5-2.5); Phosphorus 2.9 mg/dL (2.5-4.9); Potassium 3.3 meq/L (3.5-5.1); Sodium 134 meq/L (136-145)
[2018-03-15 05:13] LABS: Alkaline Phosphatase 89 U/L (45-117)
[2018-03-15 05:20] LABS: INR 1.3 Ratio; Prothrombin Time 13.4 sec (9.8-11.6)
[2018-03-15] MEDS: metroNIDAZOLE 500 MG Tablet PO SCH ×2 (05:36→13:02)
[2018-03-15] MEDS: Potassium Chlor 40 mEq Premix 40 MEQ/100 ML PIGGYBACK IV.SIG PRN (05:36)
[2018-03-15 06:18] LABS: ABG Base Excess 4.2 mmol/L (-2-2); ABG PCO2 31 mmHg (38-42); ABG PO2 72 mmHG (61-120)
[2018-03-15] MEDS: Midazolam 50 MG/50 ML Inj 50 MG/50 ML BAG IV.CONT PRN ×3 (07:14→18:30)
[2018-03-15] MEDS: Milrinone Inj 20 MG in Sodium Chlor 0.9% Inj 80 ML IV.CONT SCH (07:39)
[2018-03-15] MEDS: Insulin NovoLOG Aspart Correctional Sugar Inj SQ SCH ×2 (07:47→11:39)
--- NOTE | 2018-03-15 07:57 | P.PNCA ---
Subjective Interval history: RN at bedside. No significant change in condition. Reportedly patient was a bit more agitated overnight requiring more sedation, subsequently needed increase in vasopressin for hypotension. Still with GI bleed. Physical Exam Vital signs: Vital Signs 03/14/18 08:00 03/14/18 08:15 03/14/18 08:25 Temperature 98.7 F Pulse Rate 71 73 Respiratory Rate 20 16 Blood Pressure 88/58 L 82/53 L Pulse Oximetry 92 L 93 L 03/14/18 11:00 03/14/18 11:11 03/14/18 11:30 Temperature 99.1 F 99.1 F Pulse Rate 78 65 Respiratory Rate 18 19 Blood Pressure 98/65 L 108/70 Pulse Oximetry 94 L 97 03/14/18 11:35 03/14/18 12:00 03/14/18 15:00 Temperature 99 F 99.6 F Pulse Rate 69 71 61 Respiratory Rate 16 16 Blood Pressure 120/79 132/85 94/65 L Pulse Oximetry 96 03/14/18 16:00 03/14/18 20:00 03/14/18 20:14 Temperature 100.0 F H Pulse Rate 58 L 64 Respiratory Rate 17 16 Blood Pressure 96/64 L 96/62 L Pulse Oximetry 92 L 94 L 03/14/18 21:45 03/15/18 00:00 03/15/18 00:25 Temperature 100.7 F H Pulse Rate 73 62 Respiratory Rate 17 19 16 Blood Pressure 97/66 L Pulse Oximetry 93 L 98 03/15/18 04:00 03/15/18 04:29 03/15/18 07:00 Temperature 101.8 F H Pulse Rate 72 71 Respiratory Rate 18 18 Blood Pressure 112/81 Pulse Oximetry 93 L 93 L Intake & Output 03/14/18 03/15/18 03/15/18 18:59 06:59 18:59 Intake Total 2197 / 2197 560 / 560 50 / 50 Output Total 1100 / 1100 1450 / 1450 Balance 1097 / 1097 -890 / -890 50 / 50 Weight 167 lb 8.821 oz Intake: IV 450 / 450 500 / 500 50 / 50 Cordarone Inj 450 MG In D5W Inj 250 / 250 241 ML @ 1 MG/MIN 33.33 mls/hr IV.CONT TITRATE PRN Rx#: [id number] Versed Inj 50 mg In 50 ml @ 2 50 / 50 50 / 50 MG/HR 2 mls/hr IV.CONT TITRATE PRN Rx#:[id number] Pitressin Inj 40 UNIT In D5W 100 / 100 100 / 100 Inj 98 ML @ 0.01 UNITS/MIN 1.5 mls/hr IV.CONT TITRATE PRN Rx#: [id number] Magnesium Sulfate Inj 2 GM In 100 / 100 NS Inj 96 ML @ 50 mls/hr IV.SIG ONCE ONE Rx#:[id number] Zosyn 3.375 GM Premix 50 ML @ 100 / 100 150 / 150 100 mls/hr IV.SIG Q6H BRENDA Rx#: [id number] KCl 40 mEq Premix Inj 40 meq In 100 / 100 100 ml @ 25 mls/hr IV.SIG Q2H PRN Rx#:[id number] Oral 0 / 0 Other 500 / 500 60 / 60 Pre-Pooled Cryo Thawed 10units 250 / 250 Unit [id number] Intake (Blood Product) Amt 1247 / 1247 Plt Pheresis A Leukoreduced 219 / 219 Unit [id number] Pre-Pooled Cryo Thawed 10units 228 / 228 Unit [id number] Rbc As-3 Leukoreduced Unit 400 / 400 [id number] Rbc As-3 Leukoreduced Unit 400 / 400 [id number] Output: Urine Amount (Catheter) 1100 / 1100 1350 / 1350 Indwelling Urethral Catheter 1100 / 1100 1350 / 1350 Gastric Drainage 100 / 100 Nasogastric Tube 100 / 100 Other: Other Intake Source Saline Solution Saline Solution Plt Pheresis A Leukoreduced Saline Solution Unit [id number] Pre-Pooled Cryo Thawed 10units Saline Solution Unit [id number] Rbc As-3 Leukoreduced Unit Saline Solution [id number] Rbc As-3 Leukoreduced Unit Saline Solution [id number] Date of Last Bowel Movement 03/14/18 03/14/18 # Bowel Movements 2 # Incontinent Bowel Movements 0 Narrative: GENERAL: Well-developed well-nourished. Critically ill appearing. Currently stable. CARDIOVASCULAR: Regular rate and rhythm. No murmur appreciated. RESPIRATORY: Mechanically ventilated. Clear to auscultation. Breath sounds equal bilaterally. MUSCULOSKELETAL: No edema. Absent pulses right lower extremity, dusky appearance R foot. NEUROLOGICAL: Intubated, sedated. - Urinary Catheter Management Female External Cath placed during this visit: yes Reason for continuing: Hourly intake/output Insertion date: 03/07/18 Insertion time: 17:00 Indwelling Urethral Catheter Cath placed during this visit: yes, but has since been removed by the nurse Reason for continuing: Hourly intake/output Insertion date: 03/10/18 Insertion time: : Removal date: 03/08/18 Removal time: : Assessment and Plan - Plan 58-year-old female with no prior cardiac history being seen for new onset cardiomyopathy. The patient presented 03/02 with nausea, vomiting, diarrhea. She was found to have anemia and GI bleeding, status post clipping of bleeding hemorrhoid, status post transfusion 1 unit PRBCs 03/04. Echocardiogram showed new cardiomyopathy with EF 3035%. Assessment: Patient seen and evaluated. Chart reviewed. Agree with above. Suspected presentation with colitis and developed cytokine storm with resultant multisystem organ failure. NICM EF 10-20% Cardiogenic shock with Impella CD ADHF AF, currently NSR on amiodarone gtt at 0.5mg/kg/min, cannot be anticoagulated with active bleeding, thrombocytopenia and coagulopathy Severe coagulopathy with INR 5, improving s/p ffp severe blood loss anemia, actively bleeding/oozing from RFA impella site, s/p multiple PRBC transfusions thrombocytopenia Right leg ischemia suspect due to impella cannulation cirrhosis of the liver, due to alcoholism Acute renal failure, currently oliguric Acute respiratory failure, requiring mechanical ventilation Plan: She is currently hemodynamically stable. Urine output is picking up a bit and creatinine trending down some. Bleeding is being controlled with manual pressure and transfusion of blood products. Continue diuretic therapy, she is highly net positive in volume due to prior hemodynamic collapse. Continue amiodarone gtt at 0.5mg/kg/min. Attempt to wean pressors and when the pressors can be weaned then wean Impala. Could consider transfer to tertiary care center for ecmo for R SFA temporary bypass, however with no clear network intern recovery options at this junction and ongoing goals of care discussion with the family, would hold for now. her prognosis is very poor/grave. I agree with palliative care discussions with to help guide goals of care. Attending attestation: Patient seen and examined. Agree with above. No significant change from yesterday. Transfusion dependent from blood loss at Impella site and rectal bleeding. Consider weaning off/ removing Impella today. Will discuss with Dr Pickett as well and if decided, he will wean/remove.
[2018-03-15] MEDS: Pantoprazole Inj 40 MG Vial IV.PUSH SCH (08:55)
[2018-03-15] MEDS: Insulin Detemir Inj 1,000 UNIT/10 ML Vial SQ SCH (08:56)
[2018-03-15] MEDS: Budesonide-Formoterol 160/4.5 MCG 6 GM Inhaler INH SCH (08:57)
--- NOTE | 2018-03-15 11:21 | P.PNONC ---
Subjective Interval history: Febrile, T-max 101.8F. Patient remains ventilated and sedated. Patient did turn her head towards my voice. Spoke with RN is at bedside. Patients blood pressure did not tolerate decreasing Impella. She remains on pressor support as well. Bleeding continues at Impella site and rectal bleeding. Objective Vital Signs/Intake & Output: Vital Signs 03/14/18 11:11 03/14/18 11:30 03/14/18 11:35 Temperature 99.1 F 99 F Pulse Rate 65 69 Respiratory Rate 19 16 Blood Pressure 108/70 120/79 Pulse Oximetry 97 03/14/18 12:00 03/14/18 15:00 03/14/18 16:00 Temperature 99.6 F Pulse Rate 71 61 58 L Respiratory Rate 16 Blood Pressure 132/85 94/65 L 96/64 L Pulse Oximetry 96 03/14/18 20:00 03/14/18 20:14 03/14/18 21:45 Temperature 100.0 F H Pulse Rate 64 73 Respiratory Rate 17 16 17 Blood Pressure 96/62 L Pulse Oximetry 92 L 94 L 03/15/18 00:00 03/15/18 00:25 03/15/18 04:00 Temperature 100.7 F H 101.8 F H Pulse Rate 62 72 Respiratory Rate 19 16 18 Blood Pressure 97/66 L 112/81 Pulse Oximetry 93 L 98 93 L 03/15/18 04:29 03/15/18 07:00 03/15/18 08:00 Temperature 100.8 F H Pulse Rate 80 80 Respiratory Rate 18 23 Blood Pressure 111/77 111/77 Pulse Oximetry 93 L 96 03/15/18 08:45 03/15/18 11:00 Temperature 99.9 F H Pulse Rate 73 Respiratory Rate 19 18 Blood Pressure 102/67 Pulse Oximetry 94 L 97 Intake & Output 03/14/18 03/15/18 03/15/18 18:59 06:59 18:59 Intake Total 2197 / 2197 560 / 560 150 / 150 Output Total 1100 / 1100 1450 / 1450 Balance 1097 / 1097 -890 / -890 150 / 150 Weight 76 kg Intake: IV 450 / 450 500 / 500 150 / 150 Cordarone Inj 450 MG In D5W Inj 250 / 250 241 ML @ 1 MG/MIN 33.33 mls/hr IV.CONT TITRATE PRN Rx#: [id number] Versed Inj 50 mg In 50 ml @ 2 50 / 50 50 / 50 MG/HR 2 mls/hr IV.CONT TITRATE PRN Rx#:[id number] Pitressin Inj 40 UNIT In D5W 100 / 100 100 / 100 Inj 98 ML @ 0.01 UNITS/MIN 1.5 mls/hr IV.CONT TITRATE PRN Rx#: [id number] Magnesium Sulfate Inj 2 GM In 100 / 100 NS Inj 96 ML @ 50 mls/hr IV.SIG ONCE ONE Rx#:[id number] Zosyn 3.375 GM Premix 50 ML @ 100 / 100 150 / 150 100 mls/hr IV.SIG Q6H BRENDA Rx#: [id number] KCl 40 mEq Premix Inj 40 meq In 100 / 100 100 / 100 100 ml @ 25 mls/hr IV.SIG UNSCH PRN Rx#:[id number] Oral 0 / 0 Other 500 / 500 60 / 60 Pre-Pooled Cryo Thawed 10units 250 / 250 Unit [id number] Intake (Blood Product) Amt 1247 / 1247 Plt Pheresis A Leukoreduced 219 / 219 Unit [id number] Pre-Pooled Cryo Thawed 10units 228 / 228 Unit [id number] Rbc As-3 Leukoreduced Unit 400 / 400 [id number] Rbc As-3 Leukoreduced Unit 400 / 400 [id number] Output: Urine Amount (Catheter) 1100 / 1100 1350 / 1350 Indwelling Urethral Catheter 1100 / 1100 1350 / 1350 Gastric Drainage 100 / 100 Nasogastric Tube 100 / 100 Other: Other Intake Source Saline Solution Saline Solution Plt Pheresis A Leukoreduced Saline Solution Unit [id number] Pre-Pooled Cryo Thawed 10units Saline Solution Unit [id number] Rbc As-3 Leukoreduced Unit Saline Solution [id number] Rbc As-3 Leukoreduced Unit Saline Solution [id number] Date of Last Bowel Movement 03/14/18 03/14/18 03/15/18 # Bowel Movements 2 # Incontinent Bowel Movements 0 Result Diagrams: 03/15/18 04:30 03/15/18 04:30 Laboratory Results: Laboratory Results - last 24 hr 03/14/18 03/14/18 03/14/18 05:47 10:38 10:39 WBC RBC Hgb Hct MCV MCH MCHC RDW Plt Count MPV PT INR Fibrinogen Puncture Site Patient Temperature O2 Saturation ABG pH ABG pCO2 ABG pO2 ABG HCO3 ABG O2 Content ABG Base Excess ABG Methemoglobin Hemoglobin Carboxyhemoglobin O2 Delivery Device Vent Setting Inspired O2 Critical Value Sodium Potassium Chloride Carbon Dioxide Anion Gap BUN Creatinine Estimated GFR POC Glucose Random Glucose Lactic Acid Calcium Phosphorus Magnesium Total Bilirubin AST ALT Alkaline Phosphatase Total Protein Albumin MTS Gel Crossmatch See Detail Blood Bank Comment Bld Prod Order Comment 03/14/18 03/14/18 03/14/18 12:35 15:45 15:45 WBC 10.9 RBC 2.70 L Hgb 8.6 L Hct 24.4 L MCV 90.2 MCH 31.9 MCHC 35.4 RDW 15.0 Plt Count 57 L MPV 7.6 PT INR Fibrinogen Puncture Site Patient Temperature O2 Saturation ABG pH ABG pCO2 ABG pO2 ABG HCO3 ABG O2 Content ABG Base Excess ABG Methemoglobin Hemoglobin Carboxyhemoglobin O2 Delivery Device Vent Setting Inspired O2 Critical Value Sodium 134 L Potassium 4.0 D Chloride 94 L Carbon Dioxide 29.9 Anion Gap 10 BUN 31 H Creatinine 1.23 H Estimated GFR 45 L POC Glucose 184 H Random Glucose 133 H Lactic Acid Calcium 7.7 L Phosphorus Magnesium 2.0 Total Bilirubin AST ALT Alkaline Phosphatase Total Protein Albumin MTS Gel Crossmatch Blood Bank Comment Bld Prod Order Comment 03/14/18 03/14/18 03/14/18 15:45 16:25 17:30 WBC RBC Hgb Hct MCV MCH MCHC RDW Plt Count MPV PT INR Fibrinogen Puncture Site Art line Patient Temperature 98.6 O2 Saturation 92 ABG pH 7.45 H ABG pCO2 42 ABG pO2 76 ABG HCO3 29 H ABG O2 Content 10.6 L ABG Base Excess 5.0 H ABG Methemoglobin 1.9 Hemoglobin 8.1 L Carboxyhemoglobin 2.0 O2 Delivery Device Ventilator Vent Setting Prvc8/350/+8peep Inspired O2 45 Critical Value No Sodium Potassium Chloride Carbon Dioxide Anion Gap BUN Creatinine Estimated GFR POC Glucose 132 H Random Glucose Lactic Acid 1.7 Calcium Phosphorus Magnesium Total Bilirubin AST ALT Alkaline Phosphatase Total Protein Albumin MTS Gel Crossmatch Blood Bank Comment Bld Prod Order Comment 03/14/18 03/15/18 03/15/18 21:54 04:30 04:30 WBC 13.2 H RBC 2.75 L Hgb 8.8 L Hct 24.4 L MCV 88.7 MCH 32.2 MCHC 36.3 H RDW 14.4 Plt Count 42 L MPV 8.1 PT INR Fibrinogen Puncture Site Patient Temperature O2 Saturation ABG pH ABG pCO2 ABG pO2 ABG HCO3 ABG O2 Content ABG Base Excess ABG Methemoglobin Hemoglobin Carboxyhemoglobin O2 Delivery Device Vent Setting Inspired O2 Critical Value Sodium 134 L Potassium 3.3 L Chloride 93 L Carbon Dioxide 28.7 Anion Gap 12 BUN 33 H Creatinine 1.27 H Estimated GFR 43 L POC Glucose 141 H Random Glucose 95 Lactic Acid Calcium 7.5 L Phosphorus 2.9 Magnesium 1.7 Total Bilirubin 10.3 H AST 287 H ALT 102 H Alkaline Phosphatase 89 Total Protein 5.0 L Albumin 2.3 L WinWeb Gel Crossmatch Blood Bank Comment Bld Prod Order Comment 03/15/18 03/15/18 03/15/18 04:30 04:30 05:55 WBC RBC Hgb Hct MCV MCH MCHC RDW Plt Count MPV PT 13.4 H INR 1.3 Fibrinogen 282 Puncture Site Art line Patient Temperature 98.6 O2 Saturation 93 ABG pH 7.55 H* ABG pCO2 31 L ABG pO2 72 ABG HCO3 27 H ABG O2 Content 11.7 L ABG Base Excess 4.2 H ABG Methemoglobin 1.7 Hemoglobin 8.8 L Carboxyhemoglobin 1.5 O2 Delivery Device Ventilator Vent Setting Comment Inspired O2 70 Critical Value Yes Sodium Potassium Chloride Carbon Dioxide Anion Gap BUN Creatinine Estimated GFR POC Glucose Random Glucose Lactic Acid 1.7 Calcium Phosphorus Magnesium Total Bilirubin AST ALT Alkaline Phosphatase Total Protein Albumin [employer] Gel Crossmatch Blood Bank Comment Bld Prod Order Comment 03/15/18 07:45 WBC RBC Hgb Hct MCV MCH MCHC RDW Plt Count MPV PT INR Fibrinogen Puncture Site Patient Temperature O2 Saturation ABG pH ABG pCO2 ABG pO2 ABG HCO3 ABG O2 Content ABG Base Excess ABG Methemoglobin Hemoglobin Carboxyhemoglobin O2 Delivery Device Vent Setting Inspired O2 Critical Value Sodium Potassium Chloride Carbon Dioxide Anion Gap BUN Creatinine Estimated GFR POC Glucose 113 H Random Glucose Lactic Acid Calcium Phosphorus Magnesium Total Bilirubin AST ALT Alkaline Phosphatase Total Protein Albumin MTS Gel Crossmatch Blood Bank Comment Bld Prod Order Comment Culture Results: Microbiology 03/11/18 20:06 Aerobic Blood Culture - Preliminary Blood - Peripheral No growth in 4 days Anaerobic Blood Culture - Preliminary No growth in 4 days 03/11/18 20:00 Aerobic Blood Culture - Preliminary Blood - Peripheral No growth in 4 days Anaerobic Blood Culture - Preliminary No growth in 4 days 03/10/18 07:28 Aerobic Blood Culture - Final Blood - Peripheral No growth in 5 days Anaerobic Blood Culture - Final No growth in 5 days 03/10/18 07:22 Aerobic Blood Culture - Final Blood - Peripheral No growth in 5 days Anaerobic Blood Culture - Final No growth in 5 days 03/12/18 04:15 Gram Stain - Final Sputum - Oral Tracheal Aspirate Sputum Culture - Final Heavy growth normal respiratory tierney 03/07/18 16:04 Fungal Smear - Final Fluid - Pleural fluid No fungal elements seen Fungal Culture - Preliminary No growth in 1 week 03/07/18 16:04 Acid Fast Bacilli Smear - Final Fluid - Pleural fluid No acid fast bacilli seen Mycobacterial Culture - Preliminary No growth in 1 week 03/11/18 15:55 Urine Culture - Final Catheterized Urine No growth in 48 hours 03/10/18 09:00 Urine Culture - Final Catheterized Urine No growth in 48 hours Medications: Active Medications Generic Name Dose Route Start Last Admin Trade Name Freq PRN Reason Stop Dose Admin Albuterol 2.5 mg 03/09/18 09:34 03/09/18 23:06 Albuterol Neb (Prn) NEB 2.5 mg Q2HR NEB PRN Administration DYSPNEA Budesonide/Formoterol Fumarate 2 puff 03/07/18 21:00 03/15/18 08:57 Symbicort 160/4.5 Mcg Inh INH 2 puff BID BRENDA Administration Cholestyramine Resin 4 gm 03/05/18 21:00 03/15/18 08:56 Questran 4 Gm Pkt PO 4 gm BID BRENDA Administration Gelatin 1 foam 03/11/18 17:00 03/12/18 14:48 Gelfoam 12 Mm/7 Mm Topical TOPICAL 1 foam Q1H PRN Administration BLEEDING Magnesium Sulfate Inj 2 gm/ 100 mls @ 50 mls/hr 03/03/18 13:19 03/13/18 15:43 Sodium Chloride IV.SIG Infused UNSCH PRN Infusion For Magnesium 1.2 - 1.6 mg/dL Potassium Chloride 40 meq in 100 mls @ 25 mls/hr 03/03/18 13:19 03/15/18 09: 54 Kcl 40 Meq Premix Inj IV.SIG Infused UNSCH PRN Infusion For Potassium 3.3 - 3.5 mEq/L Potassium Chloride 20 meq in 100 mls @ 50 mls/hr 03/03/18 13:19 03/06/18 13: 22 Kcl 20 Meq Premix Inj IV.SIG Infused Q2H PRN Infusion For Potassium 2.8 - 3.2 mEq/L Magnesium Sulfate Inj 4 gm/ 100 mls @ 50 mls/hr 03/03/18 13:19 03/07/18 03:38 Sodium Chloride IV.SIG Infused UNSCH PRN Infusion For Magnesium 0.9 - 1.1 mg/dL Potassium Chloride 40 meq in 100 mls @ 25 mls/hr 03/03/18 13:19 03/14/18 09: 45 Kcl 40 Meq Premix Inj IV.SIG Infused Q2H PRN Infusion For Potassium 2.8 - 3.2 mEq/L Piperacillin/Tazobactam/Dextrose 50 mls @ 100 mls/hr 03/07/18 18:00 03/15/18 06:17 Zosyn 3.375 Gm Premix IV.SIG Infused Q6H BRENDA Infusion Fentanyl 2,500 mcg in 250 mls @ 5 mls/hr 03/10/18 09:28 03/13/18 20:44 Fentanyl 10 Mcg/Ml Premix Drip IV.SIG 75 mcg/hr TITRATE PRN 7.5 mls/hr Per Protocol Administration Protocol 50 MCG/HR Midazolam HCl 50 mg in 50 mls @ 2 mls/hr 03/10/18 09:28 03/15/18 07:14 Versed Inj IV.CONT 3 mg/hr TITRATE PRN 3 mls/hr Per Protocol Administration Protocol 2 MG/HR Vasopressin 40 unit/ Dextrose 100 mls @ 1.5 mls/hr 03/10/18 21:00 03/14/18 22 :18 IV.CONT 0.03 units/min TITRATE PRN 4.5 mls/hr Per Protocol Administration Protocol 0.01 UNITS/MIN Milrinone Lactate 20 mg/ 100 mls @ 6.86 mls/hr 03/10/18 23:00 03/15/18 07:39 Sodium Chloride IV.CONT Not Given .[id number] BRENDA 0.375 MCG/KG/MIN Amiodarone HCl 450 mg/ 250 mls @ 33.33 mls/hr 03/11/18 20:00 03/15/18 03:31 Dextrose IV.CONT 0.5 mg/min TITRATE PRN 16.66 mls/hr Per Protocol Administration Protocol 1 MG/MIN Heparin Sodium (Porcine) 25, 502.5 mls @ 0 mls/hr 03/13/18 11:00 03/14/18 22: 20 000 unit/ Dextrose IV.SIG 13.5 mls/hr UNSCH PRN Administration RATE PER IMPELLA FLOW SYSTEM As Directed Insulin Aspart 0 unit 03/02/18 17:00 03/15/18 07:47 Novolog Insulin Correctional Sugar Inj SQ Not Given ACHS [facility] Protocol Insulin Detemir 10 unit 03/12/18 12:00 03/15/18 08:56 Levemir Inj SQ 10 unit BID BRENDA Administration Levothyroxine Sodium 25 mcg 03/10/18 06:00 03/15/18 05:36 Synthroid PO 25 mcg DAILY@0600 BRENDA Administration Methylprednisolone Sodium Succinate 60 mg 03/07/18 16:30 03/15/18 04:57 Solumedrol Inj IV.PUSH 60 mg Q12H BRENDA Administration Metronidazole 500 mg 03/08/18 12:00 03/15/18 05:36 Flagyl PO 500 mg Q8HR BRENDA Administration Morphine Sulfate 2 mg 03/03/18 11:25 03/09/18 23:53 Morphine Inj IV.PUSH 2 mg Q4H PRN Administration PAIN SCALE 1 TO 10 Pantoprazole Sodium 40 mg 03/11/18 10:00 03/15/18 08:55 Protonix Inj IV.PUSH 40 mg DAILY BRENDA Administration Potassium Bicarb/Potassium Chloride 50 meq 03/03/18 13:19 03/14/18 08:40 K-Lyte Cl Eff PO 50 meq UNSCH PRN Administration For Potassium 3.3 - 3.5 mEq/L Potassium Phosphate 2,000 mg 03/03/18 13:19 03/03/18 14:17 K-Phos Original PO 2,000 mg Q4H PRN Administration Phosphorus Less Than 2.5 mg/dL Potassium Phosphate 2,000 mg 03/03/18 13:19 03/14/18 08:40 K-Phos Original PO 2,000 mg UNSCH PRN Administration SEE LABEL COMMENTS Promethazine HCl 25 mg 03/03/18 11:23 03/09/18 16:03 Phenergan PO 25 mg Q4H PRN Administration NAUSEA OR VOMITING Sodium Chloride 2 ml 03/10/18 21:00 03/15/18 08:58 Ns Flush IV.FLUSH 2 ml BID BRENDA Administration Objective Remarks: GENERAL: Critically ill-appearing female patient, ventilated and sedated. SKIN: Pale, jaundiced in appearance. HEAD: Normocephalic. EYES: No scleral icterus. No injection or drainage. NECK: Supple, trachea midline. CARDIOVASCULAR: Regular rate and rhythm without murmurs. RESPIRATORY: Breath sounds equal bilaterally. No accessory muscle use. GASTROINTESTINAL: Abdomen soft, non-tender, nondistended. EXTREMITIES: + Anasarca to be BUE. Right groin with sandbags in place, Impella device sheath. DP & PT absent on right, weak left. Cyanosis to right toes/ plantar forefoot. MUSCULOSKELETAL: Generalized decreased muscle tone. NEUROLOGICAL: Sedated. Patient did turn her head to voice. Moved left toes. 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 Her last cycle of chemotherapy was July 2016. She was initially admitted for diarrhea. She rapidly developed cardiogenic shock and required support in the ICU. 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 She underwent a left heart cardiac catheterization which showed clean coronaries. She had Impella placed for cardiac support. She had catheter site bleeding, rectal bleeding, anemia and coagulopathy. Her course is further complicated by coagulopathy for which hematology oncology was reconsulted. She remains critically ill. Concern for von Willebrand deficiency, VWF profile is pending. Plan: 1. Continue to follow PT, APTT and fibrinogen. 2. Transfuse cryoprecipitate for fibrinogen <100. 3. Maintain Hgb > 7.0. 4. Thrombocytopenia, status post blood loss and consumption. Continue to monitor platelets and transfuse accordingly. (1) NHL (non-Hodgkin's lymphoma) Qualifiers: Non-Hodgkin lymphoma type: B-cell B-cell lymphoma type: diffuse large B-cell Lymphoma site: intra-abdominal nodes Qualified Code(s): C83.33 - Diffuse large B-cell lymphoma, intra-abdominal lymph nodes
[2018-03-15] MEDS ORDERED: MILRINONE IV.SIG ONE (12:00)
[2018-03-15] MEDS ORDERED: SODIUM CHLOR 0.9% IV.SIG ONE (12:00)
[2018-03-15] MEDS ORDERED: Milrinone Inj 20 MG in Sodium Chlor 0.9% Inj 80 ML IV.CONT SCH (12:00)
[2018-03-15] MEDS ORDERED: Sodium Chlor 0.9% Inj 250 ML IV.SIG SCH (12:00)
[2018-03-15 12:11] VITALS: TEMP 100.2
--- NOTE | 2018-03-15 12:35 | P.PNCC ---
Subjective Subjective Remarks/Hospital Course: 58-year-old female with known history of hyperlipidemia, diabetes, gastroesophageal reflux, history of lymphoma who presented to the hospital initially because of abdominal pain, chronic diarrhea, nausea vomiting for 4 months. Patient is being followed by Dr. Thomas in the outpatient setting for the chronic diarrhea. She underwent endoscopy on October this year there was a stricture found and was dilated at that time. Colonoscopy was scheduled for next Sunday however due to the patient's increased nausea vomiting diarrhea she came to the emergency department for evaluation. Patient had significant workup done in the hospital to include full stool evaluation for any infectious process which was unremarkable. CT scan did indicate signs of colitis in the proximal half of the transverse colon with submucosal edema. Patient was admitted the hospital and GI consultation was requested and performed. Patient did undergo colonoscopy which did indicate colitis, biopsies were taken. Patient did have internal hemorrhoids +1 external hemorrhoid that needed to be clipped. The patient's stay her hemoglobin was monitored and her hemoglobin did drop down to 7.8 and given that she had heme positive stools she is transfused 1 unit of packed red blood cells which her hemoglobin went back up to 10.1. Patient's hemoglobin has maintained stability since then. Patient was in the ICU secondary to continued hypotension secondary to hypovolemia from her nausea, vomiting, diarrhea. Patient was on electrolyte replacement protocol due to electrolyte loss from diarrhea. Patient was started on Questran and Lomotil with significant improvement. Patient was given multiple liters of fluid boluses as well as albumin infusions with improvement of her blood pressure. Patient does have history of chronic anemia which appears to be macrocytic. Hematology was consulted for further recommendations in reference to the patient's history of lymphoma, chronic anemia, pancytopenia. Patient was actually doing well and was transferred to the medical floor. However last evening the patient had acute onset of shortness of breath. There is no indication chest pain, abdominal pain, nausea, vomiting. Patient had significant workup performed which did indicate a acute troponin elevation, significant elevation of BNP. Chest x-ray did showed new findings of pulmonary edema, pulmonary angiogram was performed which did show significant pulmonary edema with bilateral pleural effusions. Patient was transferred back to the ICU due to acute hypoxic respiratory failure. Patient was requiring 6 L nasal cannula maintain O2 saturations greater than 92%. Upon review of the EKGs it does appears patient had acute changes with Q-wave presentation in the inferior leads. Due to the patient's respiratory failure, significant hypotension, acute myocardial infarction, acute cardiomyopathy, acute congestive heart failure critical care consultation was requested for management in the ICU. SUBJECTIVE: 03/09: Currently on norepinephrine drip at 8 mcg/min. Complaining of being slightly short of breath. Current x-ray revealed tiny pleural effusions. Abdominal pain control. 03/10: florid cardiogenic shock. lactate 13. altered. acutely agitated. going into respiratory failure. emergently intubated (see procedure note for details) . scvo2 from central line of 12%. transferred to CVICU. placed arterial, central lines and PA catheter. CI 1.6. 4mg bumex iv x 1 with bumex drip at 2mg/ hr. started milrinone and epinephrine drips. no adequate uop. Dr. Hewitt came in and emergently LHC: clean coronaries. placed impella. 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 right leg without dopplerable signals after impella, but cap refill present (sluggish, but present). patient still follows commands. lactate peaked at 19, now downtrending. fio2 90% on peep 10. pulmonary edema. 03/11: Condition remains critical with guarded prognosis. Remains in profound shock. Now cardiogenic hypovolemic, hemoglobin 5.4-3 unit PRBC stat ordered, with calcium replacement. Currently remains on the fentanyl and Versed for sedation. Also on epinephrine 3 mcg/min, milrinone 0.375 mcg/kg/min, Levophed 20 mcg/min and vasopressin 0.04 international units. Heparin held due to supratherapeutic INR. Lactate continues to trend down last 4.4. Mixed venous gases pending at this time. Impella R groin, P level 6, Flow 2.9 L/min, sig 88/ 59. UO over last 12 hours is 4L. 03/12: Patient still remains extremely critical and in profound shock currently cardiogenic and hemorrhagic shock. Hemoglobin today 5 severely coagulopathic getting blood and blood products. Liver ultrasound confirms liver cirrhosis. Currently on Levophed, milrinone, vasopressin, and amiodarone infusions. Impala reading 106/75, 3.0 L/min. PAC CI 2.6, SVR decreased 979. CVP 10. Bedside echo confirms impaired left pigtail positioning towards apex, LVEF appears 20% also evidence of RV dysfunction. Bilirubin is 8.3 today INR 1.5 PTT 38.2. Unable to anticoagulate due to life-threatening hemorrhage from right groin impeller site and lower GI bleed. Patient's right lower extremity is mottled pulseless nonfunctional now. Prognosis is extremely guarded. I discussed with options. He had given me history that patient drinks about 8 shots of vodka daily and smokes 2 packs of cigarettes per day. On further discussion he stated to me that he cannot by any means see her by going on an LVAD or getting a heart transplant given her habits. He refuses a transfer to a heart transplant/LVAD center after our discussion 03/12: Remains critical still requiring inotropic pressor and Impella support. Performance level was increased to 8 at 4 AM today currently flow 3.4 L/min. Blood pressure 119/81. Urine output 2.5 L/min creatinine is 1.6. Remains grossly fluid positive will give 1 dose of Lasix 20 mg 1. Hemoglobin is 7.4 platelets 57 INR 1.6. Blood and blood product transfusions ordered. Right leg remains without pulse mottled. Palliative care involved currently alternate code. Levophed currently decreased to 6 mcg/min but remains on milrinone and vasopressin and amiodarone gtt. unable to start tube feeding due to GI bleed and high pressor requirement. There is a slight decrease in the right groin bleeding, but patient continues to have lower GI bleed 03/14: Patient continues to require pressors and Impella for cardiac support. This morning, the Impella was alarming an an aortic waveform was noted on the monitor; a stat bedside echo showed that the device had pulled back and was approximately 2 cm from the aortic valve. The pigtail was advanced by Dr. Pickett under echo guidance, waveform and MAP improved, no further alarms noted. The patient continues to have bleeding from the right groin access site and per rectum. Flolan stopped this morning around 6:30 AM. 03/15: Less bleeding noted from femoral line, more rectal bleeding/ blood clots being suctioned from ETT as per RN. Weaning impella today. Objective Vital Signs / I&O: Vital Signs 03/14/18 15:00 03/14/18 16:00 03/14/18 20:00 Temperature 99.6 F 100.0 F H Pulse Rate 61 58 L 64 Respiratory Rate 16 17 Blood Pressure 94/65 L 96/64 L 96/62 L Pulse Oximetry 96 92 L 03/14/18 20:14 03/14/18 21:45 03/15/18 00:00 Temperature 100.7 F H Pulse Rate 73 62 Respiratory Rate 16 17 19 Blood Pressure 97/66 L Pulse Oximetry 94 L 93 L 03/15/18 00:25 03/15/18 04:00 03/15/18 04:29 Temperature 101.8 F H Pulse Rate 72 Respiratory Rate 16 18 18 Blood Pressure 112/81 Pulse Oximetry 98 93 L 93 L 03/15/18 07:00 03/15/18 08:00 03/15/18 08:45 Temperature 100.8 F H Pulse Rate 80 80 Respiratory Rate 23 19 Blood Pressure 111/77 111/77 Pulse Oximetry 96 94 L 03/15/18 11:00 03/15/18 11:14 03/15/18 12:08 Temperature 99.9 F H 100.2 F H Pulse Rate 73 67 Respiratory Rate 18 18 Blood Pressure 102/67 100/66 Pulse Oximetry 97 96 97 Intake & Output 03/14/18 03/15/18 03/15/18 18:59 06:59 18:59 Intake Total 2197 / 2197 560 / 560 150 / 150 Output Total 1100 / 1100 1450 / 1450 Balance 1097 / 1097 -890 / -890 150 / 150 Weight 76 kg Intake: IV 450 / 450 500 / 500 150 / 150 Cordarone Inj 450 MG In D5W Inj 250 / 250 241 ML @ 1 MG/MIN 33.33 mls/hr IV.CONT TITRATE PRN Rx#: [id number] Versed Inj 50 mg In 50 ml @ 2 50 / 50 50 / 50 MG/HR 2 mls/hr IV.CONT TITRATE PRN Rx#:[id number] Pitressin Inj 40 UNIT In D5W 100 / 100 100 / 100 Inj 98 ML @ 0.01 UNITS/MIN 1.5 mls/hr IV.CONT TITRATE PRN Rx#: [id number] Magnesium Sulfate Inj 2 GM In 100 / 100 NS Inj 96 ML @ 50 mls/hr IV.SIG ONCE ONE Rx#:[id number] Zosyn 3.375 GM Premix 50 ML @ 100 / 100 150 / 150 100 mls/hr IV.SIG Q6H BRENDA Rx#: [id number] KCl 40 mEq Premix Inj 40 meq In 100 / 100 100 / 100 100 ml @ 25 mls/hr IV.SIG UNSCH PRN Rx#:[id number] Oral 0 / 0 Other 500 / 500 60 / 60 Pre-Pooled Cryo Thawed 10units 250 / 250 Unit [id number] Intake (Blood Product) Amt 1247 / 1247 0 / 0 Plt Pheresis A Leukoreduced 219 / 219 Unit [id number] Plt Pheresis C Leukoreduced 0 / 0 Unit [id number] Pre-Pooled Cryo Thawed 10units 228 / 228 Unit [id number] Rbc As-3 Leukoreduced Unit 400 / 400 [id number] Rbc As-3 Leukoreduced Unit 400 / 400 [id number] Output: Urine Amount (Catheter) 1100 / 1100 1350 / 1350 Indwelling Urethral Catheter 1100 / 1100 1350 / 1350 Gastric Drainage 100 / 100 Nasogastric Tube 100 / 100 Other: Other Intake Source Saline Solution Saline Solution Plt Pheresis A Leukoreduced Saline Solution Unit [id number] Pre-Pooled Cryo Thawed 10units Saline Solution Unit [id number] Rbc As-3 Leukoreduced Unit Saline Solution [id number] Rbc As-3 Leukoreduced Unit Saline Solution [id number] Date of Last Bowel Movement 03/14/18 03/14/18 03/15/18 # Bowel Movements 2 # Incontinent Bowel Movements 0 Result Diagrams: 03/15/18 04:30 03/15/18 04:30 Objective Remarks: GENERAL: Middle-aged female lying in bed; intubated, sedated, critically ill. SKIN: RLE cool, poorly perfused, mottled HEAD: Atraumatic. Normocephalic. EYES: Pupils equal and round. ENT: ETT present NECK: Trachea midline. RIJ PA catheter in place CARDIOVASCULAR: On multiple pressors. PAC in place with CO 4.0, CI 2.50, CVP10, SVR 1287 on vasopressin @0.02, Impella: 2.9 L/min on P-6, 110/68 mmHg RESPIRATORY: Mechanical breath sounds present bilaterally, diminished at bases GASTROINTESTINAL: Abdomen soft, non-tender, mildly distended MUSCULOSKELETAL: Extremities mottled. 2+ edema. No Doppler signal right lower extremity, cool, with knee immobilizer in place. Impella in RFA with sand bags for direct pressure NEUROLOGICAL: RASS -2, appears comfortable Assessment and Plan - Assessment and Plan Plan: Assessment: 58yF with severe acute cardiogenic shock, now with hemorrhagic shock also with need for mechanical support. Etiology could be alcohol induced cardiomyopathy (6-8 shots of vodka daily) versus Adriamycin induced cardiomyopathy, vs new viral myocarditis, given colitis as her presenting symptom. Continue mechanical support with Impella CP. US shows liver cirrhosis and patient has significant bleeding from right groin and lower GI. Not a candidate for LVAD to destination or to recovery, definitely not a cardiac transplant candidate. Palliative care is following now. Her chance of survival is minimal with multi-system organ dysfunction. NEUROLOGY/PSYCH: Acute metabolic encephalopathy Alcohol dependence Continue monitor neurological function, frequent neuro checks Versed and fentanyl for sedation Morphine sulfate 2 mg IV every 4 hours PRN pain Continued critical illness encephalopathy Supplement multivitamin and thiamine PULMONOLOGY Acute hypoxic respiratory failure secondary to pulmonary edema, pleural effusion L>R Pleural effusion Intubated 03/10 for acute decline Status post thoracentesis by Dr. Nate Thompson 03/07 Albuterol/ipratropium aerosols every 6 hours and albuterol aerosols every 2 hours as needed Vent bundle, HOB elevated Not appropriate for spontaneous breathing trial until shock improves Flolan weaned off yesterday pH 7.55 today, normal CO2, low chloride, most likely due to continued diarrhea/ LGIB CARDIOLOGY Cardiogenic shock, complicated by hemorrhagic shock now Acute systolic heart failure exacerbation Non-ischemic Cardiomyopathy (alcohol induced vs Adriamycin induced vs viral Elevated troponin Elevated BNP Ischemic right foot s/p Impella CP placement 03/10. * No further issues with Impella positioning since yesterday. Performance level dropped from 8 to 6 this morning, continue to wean and likely discontinue today. Flow 2.9 L/min, BP 110/68, UO 2.5 L (1.3 cc/kg/hr) in 24 hours, lactic acid 1.7 (trending down) * Milrinone @ 0.375, vasopressin @ 0.035 * I had stopped milrinone yesterday as patient's hemodynamics were tolerating weaning. Her MAPs decreased when Impella was dropped from P8 to P6, so I rebolused/ restarted this morning. * Amio @ 0.5, currently in sinus @ 78 BPM * Trend lactates. watch CVP carefully: RV failure may ensue from LVAD, last CVP 10 * Avoid over-diurese as this may cause suck-down of LVAD, currently on 55% fio2 with pulmonary edema. Lasix given late yesterday due to severe hypokalemia that needed repletion first, net even yesterday, needs continued diuresis as she is 33L positive for admission * Heparin drip DCd due to supratherapeutic PTT, and severe GI bleed and right groin hematoma s/p LHC 03/10 with clean coronaries. EF now 15-20%. moderate RV dysfunction * 2D Echo EF 30-35% 03/07. Previous echo prior to CHOP regimen showed normal ejection fraction * Cardiomyopathy may be secondary to Adriamycin toxicity vs sev alcohol abuse * US shows liver cirrhosis and patient has significant bleeding from right groin and lower GI. Not a candidate for LVAD to destination or to recovery, definitely not a cardiac transplant candidate. Active alcohol dependent PA catheter- CO 4.0, CI 2.5, CVP 10, SVR 1287 No pulse right lower extremity, unable to salvage the right limb because removal of Impella can be fatal at this time * Dr. Arellano following GASTROENTEROLOGY Colitis, ? ischemic GI bleed, active External hemorrhoid Shock liver Liver cirrhosis NPO with OGT. GI is following the patient and has undergone upper and lower endoscopies which does indicate colitis, distal esophagitis, external hemorrhoids. Pathology negative. Patient is too unstable for repeat EGD colonoscopy MRA of the abdomen was performed which did show 50% to 55% stenosis of the SMA daily cmp Liver ultrasound shows liver cirrhosis RENAL Acute kidney injury Secondary to cardiogenic shock Continue monitor renal functions, bicarb, anion gap Urine output remains excellent, creatinine 1.27 (stable) INFECTIOUS DISEASE Severe sepsis Repeated cultures 03/11/2018, no growth to date Colitis, appears to be not infectious. Continue p.o. Flagyl C. difficile, enteric pathogens, Giardia, stool for WBCs all appear to be negative Urine culture shows 50 - 100,000 of mixed [place] probable contaminants Discontinue zosyn today ENDOCRINOLOGY Diabetes mellitus Elevated TSH Continue Accu-Cheks with sliding scale insulin/aspart TSH 6.89. Low free T3. Normal free T4. On levothyroxine 25 mcg daily. Continue IV Solu-Medrol 60 mg 12 hours Continue sliding scale, added Levemir 10 every 12 HEMATOLOGY Anemia requiring transfusion with hemorrhagic shock Coagulopathy secondary to shock liver, liver cirrhosis History of large B cell lymphoma macrocytic anemia Thrombocytopenia GI bleed with bleeding external hemorrhoid Status post multiple blood and blood product transfusions, still with high transfusion requirements Hematology is following the patient Source of blood loss is right groin Impella site and lower GI bleed; per RN, bleeding around Impella site is decreased today Heparin DCd for supratherapeutic PTT, active GI bleed and coagulopathy Would like to keep platelets >50K in the setting of continued blood loss, 1U platelets given this morning PROPHYLAXIS DVT prevention with sequential compression devices, as heparin cannot be used GI protection with Protonix LINES Mediport has been accessed, right IJ PA catheter in place, right fem Impella CODE STATUS Alternative code- intubation only Counseling/ Coordination of Care: Total critical care time: 80 minutes. This includes examining the patient, gathering history from someone other than the patient (i.e., extensive chart review), discussing the patient's care with other providers, managing the patient's blood pressure and ventilator settings, ordering and interpreting radiology studies, ordering and interpreting laboratory studies, managing the patient's pain and sedation requirements, administration of blood products, re- evaluation at frequent intervals, and documentation. All critical care time is separate and exclusive of procedures, teaching, and patient/ family updates.
--- NOTE | 2018-03-15 12:45 | P.DIET ---
Nutritional Evaluation Type of nutrition evaluation: follow-up Nutrition screening: Weight Loss > 10 lbs Subjective Oral Diet Tolerance Assessment Indicates: Nausea, Vomiting Subjective Comments: Transferred from [place] (03/07) with pleural effusion s/p thoracentesis and elevated troponin. Now with change in status. Cardiogenic shock with emergent intubation on (03/10) Objective - Diagnosis Abdominal pain, nausea and vomiting x 4 months - Objective [place] body weight: 48 kg Body Weight Used for Calculations: Actual (52.9kg) Energy Needs - Lower Range (kCal/kg): 28 Energy Needs - Upper Range (kCal/kg): 33 Lower Limit kCal/kg (kCals): 1,481 Upper Limit kCal/kg (kCals): 1,746 Lower Limit Protein Factor (Grams per Kg): 1.2 Upper Limit Protein Factor (Grams per Kg): 1.5 Lower Protein Needs (Protein): 63 Upper Protein Needs (Protein): 79 Fluid Factor (ml/kg): 35 Estimated Fluid Needs (ml): 1,852 Dietitian Reviewed in Medical Record: Current diet, Curent medications, Intake & Output, Labs, Medical history Diet Order: NPO Objective Comments: PMH: HTN, DM, GERD, chronic diarrhea, HLD, hx lymphoma s/p chemotherapy Assessment Assessment: Pt at nutritional risk r/t dx and recent unintentional wt loss. Pt admitted for abdominal pain, nausea and vomiting. She is currently vented/sedated and unable to start TF yet d/t GI bleed and pressor requirements. When able to TF, recommend Vital 1.5 @ 45 mls/hr to provide 1620 kcals, 73 gms protein and 825 mls of free water. Significant wt changes noted with CBW of 76 kg. Recommendations: For TF: Vital 1.5 @ 45 mls/hr goal Dietitian to Monitor: Lab values, Intake & Output, Weight change, Medical course
--- NOTE | 2018-03-15 12:52 | P.PNPAL ---
Reason for Visit Reason for visit: a. To assist with evaluation and management of symptoms including: dyspnea, pain, diarrhea, debility b. To assist medical decision maker(s) with: better understanding of current medical conditions; weighing benefits/burdens of medical treatment options; making medical treatment decisions. Subjective Subjective/Interval History: Pt resting in bed, intubated on vent. Impella now at 6L/min up from 3.4 yesterday. Bloodwork last night indicated desaturation, FiO2 was increased to 70%. currently at 55%. Pt not well tolerating repositioning. Continued, worsened bleeding. Groin cath site bleeding somewhat improved but pt now having bleeding through mouth, ET tube. RT suctioned large clot last night. pt is having bloody diarrhea as well. PLT down to 42. Hgb 8.8, had blood transfusion last night. Getting cryo as well. No sign pain or anxiety on my eval, sedated on vent. Family/Friend Interactions: Met with family - pt's , son, son's . Discussed: -Palliative care role -Additional medical, psychosocial hx -review Patients general health, function, cognition in the months before current hospitalization - she has had increasing activity intolerance since chemo -family understanding of the current medical problems - -family understanding of prognosis - poor and worsening prognosis -Current medical treatment options and their benefits/burdens -Likely scenarios comparing ongoing aggressive care with transition to ``comfort -measures only - provided anticipatory guidance on compassionate withdrawal -Questions answered to the best of my ability - Palliative care contact information provided Met with family around 1300. Family is verbalizing comfort oriented goals; they are concerned that she might be suffering. They requested support from a social media marketing analyst. Subsequently family met with [facility] and elected to carry out compassionate withdrawal. Advance Directives Living Will: Never completed Health Care Surrogate: Never completed Durable Power of Small Business Director: Never completed Objective Vital Signs: Vital Signs 03/14/18 15:00 03/14/18 16:00 03/14/18 20:00 Temperature 99.6 F 100.0 F H Pulse Rate 61 58 L 64 Respiratory Rate 16 17 Blood Pressure 94/65 L 96/64 L 96/62 L Pulse Oximetry 96 92 L 03/14/18 20:14 03/14/18 21:45 03/15/18 00:00 Temperature 100.7 F H Pulse Rate 73 62 Respiratory Rate 16 17 19 Blood Pressure 97/66 L Pulse Oximetry 94 L 93 L 03/15/18 00:25 03/15/18 04:00 03/15/18 04:29 Temperature 101.8 F H Pulse Rate 72 Respiratory Rate 16 18 18 Blood Pressure 112/81 Pulse Oximetry 98 93 L 93 L 03/15/18 07:00 03/15/18 08:00 03/15/18 08:45 Temperature 100.8 F H Pulse Rate 80 80 Respiratory Rate 23 19 Blood Pressure 111/77 111/77 Pulse Oximetry 96 94 L 03/15/18 11:00 03/15/18 11:14 03/15/18 12:08 Temperature 99.9 F H 100.2 F H Pulse Rate 73 67 Respiratory Rate 18 18 Blood Pressure 102/67 100/66 Pulse Oximetry 97 96 97 Intake & Output 03/14/18 03/15/18 03/15/18 18:59 06:59 18:59 Intake Total 2197 / 2197 560 / 560 150 / 150 Output Total 1100 / 1100 1450 / 1450 Balance 1097 / 1097 -890 / -890 150 / 150 Weight 76 kg Intake: IV 450 / 450 500 / 500 150 / 150 Cordarone Inj 450 MG In D5W Inj 250 / 250 241 ML @ 1 MG/MIN 33.33 mls/hr IV.CONT TITRATE PRN Rx#: [id number] Versed Inj 50 mg In 50 ml @ 2 50 / 50 50 / 50 MG/HR 2 mls/hr IV.CONT TITRATE PRN Rx#:[id number] Pitressin Inj 40 UNIT In D5W 100 / 100 100 / 100 Inj 98 ML @ 0.01 UNITS/MIN 1.5 mls/hr IV.CONT TITRATE PRN Rx#: [id number] Magnesium Sulfate Inj 2 GM In 100 / 100 NS Inj 96 ML @ 50 mls/hr IV.SIG ONCE ONE Rx#:[id number] Zosyn 3.375 GM Premix 50 ML @ 100 / 100 150 / 150 100 mls/hr IV.SIG Q6H JYOTHI Rx#: [id number] KCl 40 mEq Premix Inj 40 meq In 100 / 100 100 / 100 100 ml @ 25 mls/hr IV.SIG UNSCH PRN Rx#:[id number] Oral 0 / 0 Other 500 / 500 60 / 60 Pre-Pooled Cryo Thawed 10units 250 / 250 Unit [id number] Intake (Blood Product) Amt 1247 / 1247 0 / 0 Plt Pheresis A Leukoreduced 219 / 219 Unit [id number] Plt Pheresis C Leukoreduced 0 / 0 Unit [id number] Pre-Pooled Cryo Thawed 10units 228 / 228 Unit [id number] Rbc As-3 Leukoreduced Unit 400 / 400 [id number] Rbc As-3 Leukoreduced Unit 400 / 400 [id number] Output: Urine Amount (Catheter) 1100 / 1100 1350 / 1350 Indwelling Urethral Catheter 1100 / 1100 1350 / 1350 Gastric Drainage 100 / 100 Nasogastric Tube 100 / 100 Other: Other Intake Source Saline Solution Saline Solution Plt Pheresis A Leukoreduced Saline Solution Unit [id number] Pre-Pooled Cryo Thawed 10units Saline Solution Unit [id number] Rbc As-3 Leukoreduced Unit Saline Solution [id number] Rbc As-3 Leukoreduced Unit Saline Solution [id number] Date of Last Bowel Movement 03/14/18 03/14/18 03/15/18 # Bowel Movements 2 # Incontinent Bowel Movements 0 Physical Exam: TUBES/LINES/DRAINS: OETT, Damon, RIJ central line, impella/cath right groin, right radial art line, right ACF PIV SKIN: pale. no rashes, or lesions. +Ecchymoses on upper extremities. No wounds seen anteriorly. Not diaphoretic. HEAD: Atraumatic. Normocephalic. EYES: + scleral icterus. No injection or drainage. Fundi not examined. ENT: unable to assess hearing. Nose without bleeding or purulent drainage. Throat exam inhibited by OETT CARDIOVASCULAR: RRR faint without murmurs, gallops, or rubs. No JVD. RESPIRATORY/CHEST: Symmetric, unlabored respirations. Clear to auscultation. Breath sounds equal bilaterally. No wheezes, rales, or rhonchi. GASTROINTESTINAL: Abdomen semirfirm, obese/distended. +hepatomegaly. bowel sounds hypoactive GENITOURINARY: Without palpable bladder distension. Damon catheter in place. MUSCULOSKELETAL: Right lower extremity cool, mottled, dusky, more so than yesterday NEUROLOGICAL: sedated on vent. PSYCHIATRIC: unable to assess, sedated on vent . Diagnostic Tests Laboratory: Laboratory Results - last 72 hr 03/09/18 03/12/18 03/12/18 07:00 06:10 08:56 WBC RBC Hgb Hct MCV MCH MCHC RDW Plt Count MPV Prelim Diff (Auto) Neut % (Auto) Lymph % (Auto) [place] % (Auto) Eos % (Auto) Baso % (Auto) Neut # (Auto) Lymph # (Auto) [place] # (Auto) Eos # (Auto) Baso # (Auto) WBC Differential Seg Neuts % (Manual) Band Neuts % (Manual) Lymphocytes % (Manual) Monocytes % (Manual) Metamyelocytes % (Man) Myelocytes % (Man) Abs Neuts (Manual) Nucleated RBCs/100 WBC Differential Comment Platelet Estimate Platelet Morphology Haptoglobin PT INR APTT Fibrinogen Puncture Site Patient Temperature O2 Saturation ABG pH ABG pCO2 ABG pO2 ABG HCO3 ABG O2 Content ABG Base Excess ABG Methemoglobin Hemoglobin Carboxyhemoglobin O2 Delivery Device Vent Setting Inspired O2 Critical Value Yes Sodium Potassium Chloride Carbon Dioxide Anion Gap BUN Creatinine Estimated GFR POC Glucose Random Glucose Lactic Acid Calcium Prot Corrected Calcium Phosphorus Magnesium Total Bilirubin AST ALT Alkaline Phosphatase Lactate Dehydrogenase Total Protein Albumin Chromogranin A 165.0 H Blood Type Antibody Screen MTS Gel Crossmatch Blood Bank Comment Bld Prod Order Comment 03/12/18 03/12/18 03/12/18 10:19 14:40 14:40 WBC 10.5 RBC 2.66 L Hgb 8.4 L D Hct 23.7 L MCV 89.0 D MCH 31.4 MCHC 35.2 RDW 18.9 H Plt Count 63 L D MPV 8.7 Prelim Diff (Auto) Neut % (Auto) Lymph % (Auto) [place] % (Auto) Eos % (Auto) Baso % (Auto) Neut # (Auto) Lymph # (Auto) [place] # (Auto) Eos # (Auto) Baso # (Auto) WBC Differential Seg Neuts % (Manual) Band Neuts % (Manual) Lymphocytes % (Manual) Monocytes % (Manual) Metamyelocytes % (Man) Myelocytes % (Man) Abs Neuts (Manual) Nucleated RBCs/100 WBC Differential Comment Platelet Estimate Platelet Morphology Haptoglobin PT 15.5 H INR 1.5 APTT 56.6 H Fibrinogen 249 Puncture Site Patient Temperature O2 Saturation ABG pH ABG pCO2 ABG pO2 ABG HCO3 ABG O2 Content ABG Base Excess ABG Methemoglobin Hemoglobin Carboxyhemoglobin O2 Delivery Device Vent Setting Inspired O2 Critical Value Sodium Potassium Chloride Carbon Dioxide Anion Gap BUN Creatinine Estimated GFR POC Glucose Random Glucose Lactic Acid Calcium Prot Corrected Calcium Phosphorus Magnesium Total Bilirubin AST ALT Alkaline Phosphatase Lactate Dehydrogenase Total Protein Albumin Chromogranin A Blood Type Antibody Screen MTS Gel Crossmatch See Detail Blood Bank Comment Bld Prod Order Comment 03/12/18 03/12/18 03/12/18 16:00 16:00 16:50 WBC RBC Hgb Hct MCV MCH MCHC RDW Plt Count MPV Prelim Diff (Auto) Neut % (Auto) Lymph % (Auto) [place] % (Auto) Eos % (Auto) Baso % (Auto) Neut # (Auto) Lymph # (Auto) [place] # (Auto) Eos # (Auto) Baso # (Auto) WBC Differential Seg Neuts % (Manual) Band Neuts % (Manual) Lymphocytes % (Manual) Monocytes % (Manual) Metamyelocytes % (Man) Myelocytes % (Man) Abs Neuts (Manual) Nucleated RBCs/100 WBC Differential Comment Platelet Estimate Platelet Morphology Haptoglobin PT INR APTT Fibrinogen Puncture Site Patient Temperature O2 Saturation ABG pH ABG pCO2 ABG pO2 ABG HCO3 ABG O2 Content ABG Base Excess ABG Methemoglobin Hemoglobin Carboxyhemoglobin O2 Delivery Device Vent Setting Inspired O2 Critical Value Sodium 133 L Potassium 3.9 Chloride 91 L Carbon Dioxide 32.2 H Anion Gap 10 BUN 31 H Creatinine 1.57 H Estimated GFR 34 L POC Glucose Random Glucose 253 H Lactic Acid Calcium 6.3 L* D Prot Corrected Calcium 7.8 L Phosphorus Magnesium Total Bilirubin 6.6 H AST 227 H ALT 69 H Alkaline Phosphatase 56 Lactate Dehydrogenase Total Protein 4.2 L D Albumin 2.2 L D Chromogranin A Blood Type Antibody Screen MTS Gel Crossmatch Blood Bank Comment Bld Prod Order Comment 03/12/18 03/12/18 03/12/18 16:50 17:13 20:53 WBC RBC Hgb Hct MCV MCH MCHC RDW Plt Count MPV Prelim Diff (Auto) Neut % (Auto) Lymph % (Auto) [place] % (Auto) Eos % (Auto) Baso % (Auto) Neut # (Auto) Lymph # (Auto) [place] # (Auto) Eos # (Auto) Baso # (Auto) WBC Differential Seg Neuts % (Manual) Band Neuts % (Manual) Lymphocytes % (Manual) Monocytes % (Manual) Metamyelocytes % (Man) Myelocytes % (Man) Abs Neuts (Manual) Nucleated RBCs/100 WBC Differential Comment Platelet Estimate Platelet Morphology Haptoglobin 26 L PT INR APTT Fibrinogen Puncture Site Patient Temperature O2 Saturation ABG pH ABG pCO2 ABG pO2 ABG HCO3 ABG O2 Content ABG Base Excess ABG Methemoglobin Hemoglobin Carboxyhemoglobin O2 Delivery Device Vent Setting Inspired O2 Critical Value Sodium Potassium Chloride Carbon Dioxide Anion Gap BUN Creatinine Estimated GFR POC Glucose 297 H 310 H Random Glucose Lactic Acid Calcium Prot Corrected Calcium Phosphorus Magnesium Total Bilirubin AST ALT Alkaline Phosphatase Lactate Dehydrogenase 485 H Total Protein Albumin Chromogranin A Blood Type Antibody Screen CoreTrace Gel Story of My Lifetch Blood Bank Comment MD On-Lined Prod Order Comment 03/12/18 03/13/18 03/13/18 22:44 04:06 04:06 WBC 11.3 H RBC 2.43 L Hgb 7.4 L Hct 20.8 L* MCV 85.7 MCH 30.7 MCHC 35.8 RDW 15.9 D Plt Count 57 L MPV 8.2 Prelim Diff (Auto) Neut % (Auto) Lymph % (Auto) [place] % (Auto) Eos % (Auto) Baso % (Auto) Neut # (Auto) Lymph # (Auto) [place] # (Auto) Eos # (Auto) Baso # (Auto) WBC Differential Seg Neuts % (Manual) Band Neuts % (Manual) Lymphocytes % (Manual) Monocytes % (Manual) Metamyelocytes % (Man) Myelocytes % (Man) Abs Neuts (Manual) Nucleated RBCs/100 WBC Differential Comment Platelet Estimate Platelet Morphology Haptoglobin PT 15.8 H INR 1.6 APTT Fibrinogen Puncture Site Patient Temperature O2 Saturation ABG pH ABG pCO2 ABG pO2 ABG HCO3 ABG O2 Content ABG Base Excess ABG Methemoglobin Hemoglobin Carboxyhemoglobin O2 Delivery Device Vent Setting Inspired O2 Critical Value Sodium Potassium Chloride Carbon Dioxide Anion Gap BUN Creatinine Estimated GFR POC Glucose Random Glucose Lactic Acid 3.5 H Calcium Prot Corrected Calcium Phosphorus Magnesium Total Bilirubin AST ALT Alkaline Phosphatase Lactate Dehydrogenase Total Protein Albumin Chromogranin A Blood Type Antibody Screen CoreTrace Gel Story of My Lif[facility] Blood Bank Comment MD On-Lined Prod Order Comment 03/13/18 03/13/18 03/13/18 04:06 04:06 04:10 WBC RBC Hgb Hct MCV MCH MCHC RDW Plt Count MPV Prelim Diff (Auto) Neut % (Auto) Lymph % (Auto) [place] % (Auto) Eos % (Auto) Baso % (Auto) Neut # (Auto) Lymph # (Auto) [place] # (Auto) Eos # (Auto) Baso # (Auto) WBC Differential Seg Neuts % (Manual) Band Neuts % (Manual) Lymphocytes % (Manual) Monocytes % (Manual) Metamyelocytes % (Man) Myelocytes % (Man) Abs Neuts (Manual) Nucleated RBCs/100 WBC Differential Comment Platelet Estimate Platelet Morphology Haptoglobin PT INR APTT 57.6 H Fibrinogen Puncture Site Art line Patient Temperature 98.6 O2 Saturation 96 ABG pH 7.49 H ABG pCO2 42 ABG pO2 140 H ABG HCO3 31 H ABG O2 Content 11.1 L ABG Base Excess 7.6 H ABG Methemoglobin 1.7 Hemoglobin 8.0 L Carboxyhemoglobin 1.5 O2 Delivery Device Ventilator Vent Setting Prvc/ac Inspired O2 50 Critical Value No Sodium 133 L Potassium 2.9 L* D Chloride 87 L Carbon Dioxide 33.3 H Anion Gap 13 BUN 32 H Creatinine 1.58 H Estimated GFR 34 L POC Glucose Random Glucose 248 H Lactic Acid Calcium 6.4 L* Prot Corrected Calcium 7.6 L Phosphorus 3.5 Magnesium 1.5 D Total Bilirubin 6.9 H AST 193 H ALT 71 H Alkaline Phosphatase 62 Lactate Dehydrogenase Total Protein 4.7 L Albumin 2.5 L Chromogranin A Blood Type Antibody Screen MTS Gel Crossmatch Blood Bank Comment Bld Prod Order Comment 03/13/18 03/13/18 03/13/18 08:19 08:19 11:55 WBC RBC Hgb Hct MCV MCH MCHC RDW Plt Count MPV Prelim Diff (Auto) Neut % (Auto) Lymph % (Auto) [place] % (Auto) Eos % (Auto) Baso % (Auto) Neut # (Auto) Lymph # (Auto) [place] # (Auto) Eos # (Auto) Baso # (Auto) WBC Differential Seg Neuts % (Manual) Band Neuts % (Manual) Lymphocytes % (Manual) Monocytes % (Manual) Metamyelocytes % (Man) Myelocytes % (Man) Abs Neuts (Manual) Nucleated RBCs/100 WBC Differential Comment Platelet Estimate Platelet Morphology Haptoglobin PT 14.4 H INR 1.4 APTT Fibrinogen Puncture Site Patient Temperature O2 Saturation ABG pH ABG pCO2 ABG pO2 ABG HCO3 ABG O2 Content ABG Base Excess ABG Methemoglobin Hemoglobin Carboxyhemoglobin O2 Delivery Device Vent Setting Inspired O2 Critical Value Sodium Potassium Chloride Carbon Dioxide Anion Gap BUN Creatinine Estimated GFR POC Glucose Random Glucose Lactic Acid 2.2 H Calcium Prot Corrected Calcium Phosphorus Magnesium Total Bilirubin AST ALT Alkaline Phosphatase Lactate Dehydrogenase Total Protein Albumin Chromogranin A Blood Type A Positive Antibody Screen Negative MTS Gel Crossmatch See Detail Blood Bank Comment Bld Prod Order Comment 03/13/18 03/13/18 03/13/18 11:55 11:55 12:38 WBC 9.2 RBC 2.45 L Hgb 7.6 L Hct 21.4 L MCV 87.3 MCH 31.0 MCHC 35.6 RDW 16.1 Plt Count 49 L MPV 7.6 Prelim Diff (Auto) Slide review pending Neut % (Auto) 86.3 H Lymph % (Auto) 5.3 L [place] % (Auto) 7.1 Eos % (Auto) 0.1 Baso % (Auto) 1.2 Neut # (Auto) 7.9 H Lymph # (Auto) 0.5 L [place] # (Auto) 0.7 Eos # (Auto) 0.0 Baso # (Auto) 0.1 WBC Differential Manual diff final Seg Neuts % (Manual) 77 H Band Neuts % (Manual) 15 H Lymphocytes % (Manual) 5 L Monocytes % (Manual) 3 Metamyelocytes % (Man) Myelocytes % (Man) Abs Neuts (Manual) 8.5 H Nucleated RBCs/100 WBC 6 H Differential Comment . Platelet Estimate Low L Platelet Morphology Normal Haptoglobin PT INR APTT Fibrinogen Puncture Site Patient Temperature O2 Saturation ABG pH ABG pCO2 ABG pO2 ABG HCO3 ABG O2 Content ABG Base Excess ABG Methemoglobin Hemoglobin Carboxyhemoglobin O2 Delivery Device Vent Setting Inspired O2 Critical Value Sodium 132 L Potassium 3.4 L Chloride 87 L Carbon Dioxide 32.4 H Anion Gap 13 BUN 32 H Creatinine 1.46 H Estimated GFR 37 L POC Glucose 253 H Random Glucose 244 H Lactic Acid Calcium 6.7 L* Prot Corrected Calcium 7.7 L Phosphorus Magnesium Total Bilirubin 6.4 H AST 171 H ALT 63 H Alkaline Phosphatase 66 Lactate Dehydrogenase Total Protein 5.1 L Albumin 2.7 L Chromogranin A Blood Type Antibody Screen MTS Gel Crossmatch Blood Bank Comment Bld Prod Order Comment 03/13/18 03/13/18 03/14/18 17:39 21:03 04:45 WBC RBC Hgb Hct MCV MCH MCHC RDW Plt Count MPV Prelim Diff (Auto) Neut % (Auto) Lymph % (Auto) [place] % (Auto) Eos % (Auto) Baso % (Auto) Neut # (Auto) Lymph # (Auto) [place] # (Auto) Eos # (Auto) Baso # (Auto) WBC Differential Seg Neuts % (Manual) Band Neuts % (Manual) Lymphocytes % (Manual) Monocytes % (Manual) Metamyelocytes % (Man) Myelocytes % (Man) Abs Neuts (Manual) Nucleated RBCs/100 WBC Differential Comment Platelet Estimate Platelet Morphology Haptoglobin PT 14.9 H INR 1.5 APTT 53.5 H Fibrinogen 175 L Puncture Site Patient Temperature O2 Saturation ABG pH ABG pCO2 ABG pO2 ABG HCO3 ABG O2 Content ABG Base Excess ABG Methemoglobin Hemoglobin Carboxyhemoglobin O2 Delivery Device Vent Setting Inspired O2 Critical Value Sodium Potassium Chloride Carbon Dioxide Anion Gap BUN Creatinine Estimated GFR POC Glucose 177 H 186 H Random Glucose Lactic Acid Calcium Prot Corrected Calcium Phosphorus Magnesium Total Bilirubin AST ALT Alkaline Phosphatase Lactate Dehydrogenase Total Protein Albumin Chromogranin A Blood Type Antibody Screen MTS Gel Crossmatch Blood Bank Comment Bld Prod Order Comment 03/14/18 03/14/18 03/14/18 04:45 04:45 05:47 WBC 9.0 RBC 2.17 L Hgb 6.9 L* Hct 19.2 L* MCV 88.7 MCH 31.9 MCHC 36.0 RDW 15.7 Plt Count 30 L D MPV 7.7 Prelim Diff (Auto) Neut % (Auto) Lymph % (Auto) [place] % (Auto) Eos % (Auto) Baso % (Auto) Neut # (Auto) Lymph # (Auto) [place] # (Auto) Eos # (Auto) Baso # (Auto) WBC Differential Seg Neuts % (Manual) Band Neuts % (Manual) Lymphocytes % (Manual) Monocytes % (Manual) Metamyelocytes % (Man) Myelocytes % (Man) Abs Neuts (Manual) Nucleated RBCs/100 WBC Differential Comment Platelet Estimate Platelet Morphology Haptoglobin PT INR APTT Fibrinogen Puncture Site Patient Temperature O2 Saturation ABG pH ABG pCO2 ABG pO2 ABG HCO3 ABG O2 Content ABG Base Excess ABG Methemoglobin Hemoglobin Carboxyhemoglobin O2 Delivery Device Vent Setting Inspired O2 Critical Value Sodium 134 L Potassium 2.9 L* Chloride 89 L Carbon Dioxide 32.2 H Anion Gap 13 BUN 32 H Creatinine 1.36 H Estimated GFR 40 L POC Glucose Random Glucose 175 H Lactic Acid Calcium 7.8 L D Prot Corrected Calcium Phosphorus 2.9 Magnesium 1.7 Total Bilirubin 7.3 H AST 204 H ALT 73 H Alkaline Phosphatase 63 Lactate Dehydrogenase 528 H Total Protein 4.9 L Albumin 2.4 L Chromogranin A Blood Type Antibody Screen MTS Gel Crossmatch See Detail Blood Bank Comment Bld Prod Order Comment 03/14/18 03/14/18 03/14/18 05:47 08:07 09:15 WBC 8.8 RBC 2.81 L Hgb 8.8 L Hct 24.7 L MCV 88.2 MCH 31.4 MCHC 35.6 RDW 14.9 Plt Count 44 L D MPV 7.3 Prelim Diff (Auto) Slide review pending Neut % (Auto) 92.4 H Lymph % (Auto) 2.0 L [place] % (Auto) 5.3 Eos % (Auto) 0.0 Baso % (Auto) 0.3 Neut # (Auto) 8.2 H Lymph # (Auto) 0.2 L [place] # (Auto) 0.5 Eos # (Auto) 0.0 Baso # (Auto) 0.0 WBC Differential Manual diff final Seg Neuts % (Manual) 79 H Band Neuts % (Manual) 8 H Lymphocytes % (Manual) 3 L Monocytes % (Manual) 5 Metamyelocytes % (Man) 3 H Myelocytes % (Man) 2 H Abs Neuts (Manual) 8.1 H Nucleated RBCs/100 WBC 6 H Differential Comment . Platelet Estimate Low L Platelet Morphology Normal Haptoglobin PT INR APTT Fibrinogen Puncture Site Patient Temperature O2 Saturation ABG pH ABG pCO2 ABG pO2 ABG HCO3 ABG O2 Content ABG Base Excess ABG Methemoglobin Hemoglobin Carboxyhemoglobin O2 Delivery Device Vent Setting Inspired O2 Critical Value Sodium Potassium Chloride Carbon Dioxide Anion Gap BUN Creatinine Estimated GFR POC Glucose 200 H Random Glucose Lactic Acid Calcium Prot Corrected Calcium Phosphorus Magnesium Total Bilirubin AST ALT Alkaline Phosphatase Lactate Dehydrogenase Total Protein Albumin Chromogranin A Blood Type Antibody Screen MTS Gel Crossmatch Blood Bank Comment Bld Prod Order Comment 03/14/18 03/14/18 03/14/18 10:38 10:39 12:35 WBC RBC Hgb Hct MCV MCH MCHC RDW Plt Count MPV Prelim Diff (Auto) Neut % (Auto) Lymph % (Auto) [place] % (Auto) Eos % (Auto) Baso % (Auto) Neut # (Auto) Lymph # (Auto) [place] # (Auto) Eos # (Auto) Baso # (Auto) WBC Differential Seg Neuts % (Manual) Band Neuts % (Manual) Lymphocytes % (Manual) Monocytes % (Manual) Metamyelocytes % (Man) Myelocytes % (Man) Abs Neuts (Manual) Nucleated RBCs/100 WBC Differential Comment Platelet Estimate Platelet Morphology Haptoglobin PT INR APTT Fibrinogen Puncture Site Patient Temperature O2 Saturation ABG pH ABG pCO2 ABG pO2 ABG HCO3 ABG O2 Content ABG Base Excess ABG Methemoglobin Hemoglobin Carboxyhemoglobin O2 Delivery Device Vent Setting Inspired O2 Critical Value Sodium Potassium Chloride Carbon Dioxide Anion Gap BUN Creatinine Estimated GFR POC Glucose 184 H Random Glucose Lactic Acid Calcium Prot Corrected Calcium Phosphorus Magnesium Total Bilirubin AST ALT Alkaline Phosphatase Lactate Dehydrogenase Total Protein Albumin Chromogranin A Blood Type Antibody Screen MTS Gel Crossmatch Blood Bank Comment Bld Prod Order Comment 03/14/18 03/14/18 03/14/18 15:45 15:45 15:45 WBC 10.9 RBC 2.70 L Hgb 8.6 L Hct 24.4 L MCV 90.2 MCH 31.9 MCHC 35.4 RDW 15.0 Plt Count 57 L MPV 7.6 Prelim Diff (Auto) Neut % (Auto) Lymph % (Auto) [place] % (Auto) Eos % (Auto) Baso % (Auto) Neut # (Auto) Lymph # (Auto) [place] # (Auto) Eos # (Auto) Baso # (Auto) WBC Differential Seg Neuts % (Manual) Band Neuts % (Manual) Lymphocytes % (Manual) Monocytes % (Manual) Metamyelocytes % (Man) Myelocytes % (Man) Abs Neuts (Manual) Nucleated RBCs/100 WBC Differential Comment Platelet Estimate Platelet Morphology Haptoglobin PT INR APTT Fibrinogen Puncture Site Patient Temperature O2 Saturation ABG pH ABG pCO2 ABG pO2 ABG HCO3 ABG O2 Content ABG Base Excess ABG Methemoglobin Hemoglobin Carboxyhemoglobin O2 Delivery Device Vent Setting Inspired O2 Critical Value Sodium 134 L Potassium 4.0 D Chloride 94 L Carbon Dioxide 29.9 Anion Gap 10 BUN 31 H Creatinine 1.23 H Estimated GFR 45 L POC Glucose Random Glucose 133 H Lactic Acid 1.7 Calcium 7.7 L Prot Corrected Calcium Phosphorus Magnesium 2.0 Total Bilirubin AST ALT Alkaline Phosphatase Lactate Dehydrogenase Total Protein Albumin Chromogranin A Blood Type Antibody Screen [facility] Gel Crossmatch Blood Bank Comment Bld Prod Order Comment 03/14/18 03/14/18 03/14/18 16:25 17:30 21:54 WBC RBC Hgb Hct MCV MCH MCHC RDW Plt Count MPV Prelim Diff (Auto) Neut % (Auto) Lymph % (Auto) [place] % (Auto) Eos % (Auto) Baso % (Auto) Neut # (Auto) Lymph # (Auto) [place] # (Auto) Eos # (Auto) Baso # (Auto) WBC Differential Seg Neuts % (Manual) Band Neuts % (Manual) Lymphocytes % (Manual) Monocytes % (Manual) Metamyelocytes % (Man) Myelocytes % (Man) Abs Neuts (Manual) Nucleated RBCs/100 WBC Differential Comment Platelet Estimate Platelet Morphology Haptoglobin PT INR APTT Fibrinogen Puncture Site Art line Patient Temperature 98.6 O2 Saturation 92 ABG pH 7.45 H ABG pCO2 42 ABG pO2 76 ABG HCO3 29 H ABG O2 Content 10.6 L ABG Base Excess 5.0 H ABG Methemoglobin 1.9 Hemoglobin 8.1 L Carboxyhemoglobin 2.0 O2 Delivery Device Ventilator Vent Setting Prvc8/350/+8peep Inspired O2 45 Critical Value No Sodium Potassium Chloride Carbon Dioxide Anion Gap BUN Creatinine Estimated GFR POC Glucose 132 H 141 H Random Glucose Lactic Acid Calcium Prot Corrected Calcium Phosphorus Magnesium Total Bilirubin AST ALT Alkaline Phosphatase Lactate Dehydrogenase Total Protein Albumin Chromogranin A Blood Type Antibody Screen [facility] Gel Crossmatch Blood Bank Comment Bld Prod Order Comment 03/15/18 03/15/18 03/15/18 04:30 04:30 04:30 WBC 13.2 H RBC 2.75 L Hgb 8.8 L Hct 24.4 L MCV 88.7 MCH 32.2 MCHC 36.3 H RDW 14.4 Plt Count 42 L MPV 8.1 Prelim Diff (Auto) Neut % (Auto) Lymph % (Auto) [place] % (Auto) Eos % (Auto) Baso % (Auto) Neut # (Auto) Lymph # (Auto) [place] # (Auto) Eos # (Auto) Baso # (Auto) WBC Differential Seg Neuts % (Manual) Band Neuts % (Manual) Lymphocytes % (Manual) Monocytes % (Manual) Metamyelocytes % (Man) Myelocytes % (Man) Abs Neuts (Manual) Nucleated RBCs/100 WBC Differential Comment Platelet Estimate Platelet Morphology Haptoglobin PT 13.4 H INR 1.3 APTT Fibrinogen 282 Puncture Site Patient Temperature O2 Saturation ABG pH ABG pCO2 ABG pO2 ABG HCO3 ABG O2 Content ABG Base Excess ABG Methemoglobin Hemoglobin Carboxyhemoglobin O2 Delivery Device Vent Setting Inspired O2 Critical Value Sodium 134 L Potassium 3.3 L Chloride 93 L Carbon Dioxide 28.7 Anion Gap 12 BUN 33 H Creatinine 1.27 H Estimated GFR 43 L POC Glucose Random Glucose 95 Lactic Acid Calcium 7.5 L Prot Corrected Calcium Phosphorus 2.9 Magnesium 1.7 Total Bilirubin 10.3 H AST 287 H ALT 102 H Alkaline Phosphatase 89 Lactate Dehydrogenase Total Protein 5.0 L Albumin 2.3 L Chromogranin A Blood Type Antibody Screen MTS Gel Crossmatch Blood Bank Comment Bld Prod Order Comment 03/15/18 03/15/18 03/15/18 04:30 05:55 07:45 WBC RBC Hgb Hct MCV MCH MCHC RDW Plt Count MPV Prelim Diff (Auto) Neut % (Auto) Lymph % (Auto) [place] % (Auto) Eos % (Auto) Baso % (Auto) Neut # (Auto) Lymph # (Auto) [place] # (Auto) Eos # (Auto) Baso # (Auto) WBC Differential Seg Neuts % (Manual) Band Neuts % (Manual) Lymphocytes % (Manual) Monocytes % (Manual) Metamyelocytes % (Man) Myelocytes % (Man) Abs Neuts (Manual) Nucleated RBCs/100 WBC Differential Comment Platelet Estimate Platelet Morphology Haptoglobin PT INR APTT Fibrinogen Puncture Site Art line Patient Temperature 98.6 O2 Saturation 93 ABG pH 7.55 H* ABG pCO2 31 L ABG pO2 72 ABG HCO3 27 H ABG O2 Content 11.7 L ABG Base Excess 4.2 H ABG Methemoglobin 1.7 Hemoglobin 8.8 L Carboxyhemoglobin 1.5 O2 Delivery Device Ventilator Vent Setting Comment Inspired O2 70 Critical Value Yes Sodium Potassium Chloride Carbon Dioxide Anion Gap BUN Creatinine Estimated GFR POC Glucose 113 H Random Glucose Lactic Acid 1.7 Calcium Prot Corrected Calcium Phosphorus Magnesium Total Bilirubin AST ALT Alkaline Phosphatase Lactate Dehydrogenase Total Protein Albumin Chromogranin A Blood Type Antibody Screen MTS Gel Crossmatch Blood Bank Comment Bld Prod Order Comment 03/15/18 03/15/18 11:17 11:24 WBC RBC Hgb Hct MCV MCH MCHC RDW Plt Count MPV Prelim Diff (Auto) Neut % (Auto) Lymph % (Auto) [place] % (Auto) Eos % (Auto) Baso % (Auto) Neut # (Auto) Lymph # (Auto) [place] # (Auto) Eos # (Auto) Baso # (Auto) WBC Differential Seg Neuts % (Manual) Band Neuts % (Manual) Lymphocytes % (Manual) Monocytes % (Manual) Metamyelocytes % (Man) Myelocytes % (Man) Abs Neuts (Manual) Nucleated RBCs/100 WBC Differential Comment Platelet Estimate Platelet Morphology Haptoglobin PT INR APTT Fibrinogen Puncture Site Patient Temperature O2 Saturation ABG pH ABG pCO2 ABG pO2 ABG HCO3 ABG O2 Content ABG Base Excess ABG Methemoglobin Hemoglobin Carboxyhemoglobin O2 Delivery Device Vent Setting Inspired O2 Critical Value Sodium Potassium Chloride Carbon Dioxide Anion Gap BUN Creatinine Estimated GFR POC Glucose 121 H Random Glucose Lactic Acid Calcium Prot Corrected Calcium Phosphorus Magnesium Total Bilirubin AST ALT Alkaline Phosphatase Lactate Dehydrogenase Total Protein Albumin Chromogranin A Blood Type Antibody Screen CoreTrace Gel Crossmatch Blood Bank Comment Bld Prod Order Comment Result Diagrams: 03/15/18 04:30 03/15/18 04:30 Microbiology: Microbiology 03/11/18 20:06 Aerobic Blood Culture - Preliminary Blood - Peripheral No growth in 4 days Anaerobic Blood Culture - Preliminary No growth in 4 days 03/11/18 20:00 Aerobic Blood Culture - Preliminary Blood - Peripheral No growth in 4 days Anaerobic Blood Culture - Preliminary No growth in 4 days 03/10/18 07:28 Aerobic Blood Culture - Final Blood - Peripheral No growth in 5 days Anaerobic Blood Culture - Final No growth in 5 days 03/10/18 07:22 Aerobic Blood Culture - Final Blood - Peripheral No growth in 5 days Anaerobic Blood Culture - Final No growth in 5 days 03/12/18 04:15 Gram Stain - Final Sputum - Oral Tracheal Aspirate Sputum Culture - Final Heavy growth normal respiratory tierney 03/07/18 16:04 Fungal Smear - Final Fluid - Pleural fluid No fungal elements seen Fungal Culture - Preliminary No growth in 1 week 03/07/18 16:04 Acid Fast Bacilli Smear - Final Fluid - Pleural fluid No acid fast bacilli seen Mycobacterial Culture - Preliminary No growth in 1 week 03/11/18 15:55 Urine Culture - Final Catheterized Urine No growth in 48 hours 03/10/18 09:00 Urine Culture - Final Catheterized Urine No growth in 48 hours Imaging: ITS Impressions Abdomen MRI 03/05/18 00:00 CONCLUSION: 1. 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 Celiac artery and YARI are patent. Typically, stenosis of a single mesenteric artery should not cause significant mesenteric ischemia. However, in a rare but appropriate clinical setting this may be symptomatic. 2. Diffuse atherosclerotic disease in the abdominal aorta. 3. Small bilateral pleural effusions. 4. Hepatic steatosis. Abdomen X-Ray 03/06/18 23:18 CONCLUSION: Benign-appearing abdomen. 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 Chest CTA 03/07/18 00:00 CONCLUSION: 1. Pulmonary edema and moderate bilateral pleural effusions with dependent/ compressive atelectasis. 2. No pulmonary embolus. 3. Coronary artery calcification. Abdomen/Pelvis CT 03/10/18 00:29 CONCLUSION: 1. Unchanged exam. Bilateral pleural effusions and associated atelectasis. 2. Hepatomegaly with some lobulation to the contour and small volume ascites. This raises concern for possible cirrhosis. 3. Coronary artery atherosclerotic calcifications. Gallbladder Ultrasound 03/12/18 00:00 CONCLUSION: 1. Cirrhotic liver with small amount of abdominal ascites. 2. Gallbladder wall thickening. Chest X-Ray 03/14/18 09:20 CONCLUSION: Impella device has retracted back slightly from its previous position Continued slight improvement in aeration Procedures: 03/05 EGD colonoscopy 03/07 thoracentesis 03/10 intubated, left heart cath, impella placed, arterial line placed, central lne placed, right IJ PA catheter placed Assessment and Plan - Disease Oriented Problem List (1) Cardiogenic shock (2) Systolic and diastolic CHF, acute (3) Hypotension (4) GIB (gastrointestinal bleeding) (5) Acute kidney injury (6) Ischemic leg Pertinent Non-Medical Issues: Psychosocial: , lives with . Has 2 sons. Unemployed. Spiritual: no sabianism affiliation Legal: Pt not capacitated to make medical decisions. In absence of designated HCS, proxy decision making falls to , per [place] statutes. Ethical issues impacting care: none. Important Contacts: Jay Henriquez [phone] Son Lius Henriquez [phone] Prognosis: This is a 58 yo female with hx non hodgkins lymphoma in remission, etoh abuse, 40 pack years, who presented 03/02 with 4 month hx diarrhea. AFter she was admitted she developed new onset cardiomyopathy and subsequently severe cardiogenic shock. Had left heart cath and placement of impella. EF initially 30 -35%, now estimated to be 10-15%. RLE ischemic and nonfunctional, cannot be revascularized d/t presence impella. Suffered LOVE, now LFTs are rising and it appears she has cirrhosis. Continued drops in hgb requiring mult transfusions, 13 x PRBC to date. Unlikely she is candidate for a heart transplant. Now with upper and lower GI bleeding, risk for aspiration blood. Her prognosis is grim. Code Status: No Code DNR Plan: - LEGAL DECISION MAKER - Pt not capacitated to make medical decisions and may not regain capacity. In the absence of a designated HCS, per [place] statutes proxy decision making falls to her . - CODE STATUS - no code - GOALS -Met with family around 1300. Family is verbalizing comfort oriented goals; they are concerned that she might be suffering. They requested support from a social media marketing analyst. Subsequently family met with [facility] and elected to carry out compassionate withdrawal. 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 EF 10-15%. on milrinone, vasopressin. Impella up to 6L/min, if it is weaned she will need additional continued pressor support. Desaturated last night, fiO2 increased to 70%, currently at 50%. has PRN duonebs, jyothi symbicort. * pain - multifactorial, 2/2 mult lines, catheters, procedures. No sign pain on my eval. On fentanyl 7.5ml/hr. has morphine 2mg IV q4h PRN. no further recs at this time * diarrhea - unclear etiology. had EGD colonoscopy this admission, bx benign. ? viral colitis. now with bloody diarrhea. abd distended. WBC WNL. on zosyn, flagyl. on questran. no further recs at this time * debility - unlikely if she survives she will return to baseline, she had already declined activity cruz since chemo. cardiac status unlikely to allow for any aggressive rehab. RLE dusky, cool, mottled. risk for losing RLE d/t presence impella. - d/w RN, d/w Dr Lucas Palliative care will continue to follow during hospital course as condition evolves, to assist patient/decision-maker with understanding of medical conditions, weighing benefits/burdens of treatment options, for clarification of goals of treatment. Additionally will assist with any symptoms of palliative concern Attestation Attestation: To help prompt me to consider important information that might be impacting today's encounter and assessment, information from prior notes written by myself or my colleagues may have been "brought forward" into today's note. My signature on this note, however, is an attestation that I personally performed the exam, history, and/or decision-making noted today, and, unless otherwise indicated, the interactions with patient, family, and staff as well as the review of records all occurred today. I also attest that the listed assessment and stated plan reflect my best clinical judgment today based on the combination of historical information, prior notes, and today's exam/ interactions. When time spent is documented, it refers only to time spent today by the signer, or if indicated, combined time spent today by collaborating physician/nurse practitioner.
[2018-03-15] MEDS ORDERED: Morphine Sulfate Inj 8 MG/ML Vial IV.PUSH ONE ×2 (14:30→15:00)
[2018-03-15] MEDS ORDERED: Hyoscyamine Inj 0.5 MG/ML Ampul IV.PUSH ONE (14:30)
[2018-03-15] MEDS: Hyoscyamine Inj 0.5 MG/ML Ampul IV.PUSH PRN ×2 (14:42→17:52)
[2018-03-15] MEDS ORDERED: Acetaminophen 650 MG Supp RECTAL PRN (15:00)
[2018-03-15] MEDS ORDERED: Morphine Sulfate Inj 8 MG/ML Vial IV.PUSH PRN (15:00)
--- NOTE | 2018-03-15 15:07 | P.PNPAL ---
Palliative care social worker school asked to see family for Mrs. Pettit for support and questions regarding cremation, social security, and affairs after Mrs. Pettit dies. Spoke with patient's son and daughter in law at bedside. Gently provided them with information to some of their questions. Offered emotional support. Spoke with Mr. Pettit on the second floor waiting room as he did not wish to be at patient's bedside. He is appropriately tearful. Provided him with information on cremation assistance and nursing office number to inform them of assistance needed after she dies. He has questions regarding social security. Encouraged him to speak with the case preparer and liner assigned to Mrs. Pettit through social security office to obtain information and additional resources he may be eligible for. Answered all his questions and concerns to the best of my ability. Palliative care contact information provided for additional questions/concerns. Palliative care will continue to follow throughout hospitalization.
[2018-03-15] MEDS: Morphine Inj 4 MG/ML Vial IV.PUSH PRN ×3 (15:14→15:39)
[2018-03-15] MEDS: Morphine Inj 4 MG/ML Vial IV.PUSH SCH ×2 (16:00→20:14)
[2018-03-15] MEDS: fentaNYL 10 mcg/mL Premix Drip 2,500 MCG/250 ML BAG IV.SIG PRN (18:19)
[2018-03-15 23:16] VITALS: RESP 8; O2SAT 57
[2018-03-15 23:19] VITALS: BP 53/22; PULSE 87
--- NOTE | 2018-03-16 02:04 | P.DN ---
Discharge Sum: Prov - Provider Primary care physician: Jay Mcnair Consults: 03/02/18 16:13 Consult to Gastroenterology Routine Consulting Provider: Fausto Cifuentes Reason for Consultation: Patient known to Dr. Tinsley chronic diarrhea, nausea and vomiting x 4 months acute colitis Notified:: Service Spoke with:: DICK Date Notified:: 03/02/18 Time Notified:: 16:33 Comments:: is not on staff a [facility] only [facility] Consult was given on aluminum container tester GI service . Ordering Provider: SUMEET 03/04/18 10:23 Consult to Oncology Routine Consulting Provider: Antonia Downey Preferred Yoga Instructor:: Antonia Downey Patient known to:: Antonia Downey Reason for Consultation: h/o lymphoma pancytopenia with anemia, rectal bleeding Notified:: Office Spoke with:: Shannon Date Notified:: 03/04/18 Time Notified:: 10:47 Ordering Provider: SUMEET 03/05/18 08:05 Consult to Colorectal Surgery Routine Consulting Provider: Amari Solares Reason for Consultation: external hemorrhoids bleeding Notified:: Office Spoke with:: eczar Date Notified:: 03/06/18 Time Notified:: 13:27 Comments:: no coverage notifield rn/waldo @ [id number] Ordering Provider: KRISTAL 03/07/18 11:08 Consult to Cardiology Routine Consulting Provider: Rashid Pickett Does the patient have a Surfboard Maker who follows them?: No Preferred Management Trainer:: Textile Science Technician Physician Reason for Consultation: Acute congestive heart failure, elevated troponin, acute myocardial infarction Notified:: Office Spoke with:: Sobeida Date Notified:: 03/07/18 Time Notified:: 11:17 Ordering Provider: KORIN 03/07/18 11:35 Consult to Manufacturing Plant Controller Stat Consulting Provider: Nate Thompson For STAT consult, spoke directly to:: Dr Thompson Reason for Consultation: acute resp failure, hypotension, acute TX Notified:: Service Spoke with:: Migdalia Date Notified:: 03/07/18 Time Notified:: 11:45 Comments:: Verified PA spoke to Ordering Provider: KORIN 03/10/18 12:03 Consult to Nephrology Stat Consulting Provider: Robb Linn V For STAT consult, spoke directly to:: Robb Linn Does the patient have a International Logistics Manager who follows them?: No Preferred Nephrology Yoga Instructor:: Robb Linn Reason for Consultation: cardiogenic shock with LOVE Notified:: Physician Spoke with:: / Date Notified:: 03/10/18 Time Notified:: 12:11 Ordering Provider: STEWART 03/10/18 19:57 Consult to Vascular Surgery Routine Consulting Provider: Philippe Arellano Preferred Yoga Instructor:: Philippe Arellano Patient known to:: Philippe Arellano Reason for Consultation: right LE ischemia Spoke with:: Added to list. Call in AM Date Notified:: 03/10/18 Time Notified:: 20:47 Comments:: Hold courtesy call to private cell for AM Ordering Provider: STEWART 03/12/18 10:32 Consult to Palliative Care Routine Consulting Provider: Ac Casper Reason for Consultation: Critically ill with end stage heart and liver disease on impella for CV support. Address goals of care, code status Notified:: Service Spoke with:: Jody Date Notified:: 03/12/18 Time Notified:: 10:48 Ordering Provider: YOMI 03/12/18 11:58 Consult to Hematology Routine Consulting Provider: Zo Baldwin Reason for Consultation: hem drop Notified:: Office Spoke with:: Tamra Date Notified:: 03/12/18 Time Notified:: 12:26 Comments:: Ordering Provider: YOMI Discharge Sum: Diag - PCOD Cause of : Cardiac arrest Discharge Sum: Summary - Date and Time Date of admission: 03/03/18 13:33 Date of : 03/15/18 Time of : 21:41 - Summary Details: 58-year-old female with known history of hyperlipidemia, diabetes, gastroesophageal reflux, history of lymphoma who presented to the hospital initially because of abdominal pain, chronic diarrhea, nausea vomiting for 4 months. Patient is being followed by Dr. Thomas in the outpatient setting for the chronic diarrhea. She underwent endoscopy on October this year there was a stricture found and was dilated at that time. Colonoscopy was scheduled for next Sunday however due to the patient's increased nausea vomiting diarrhea she came to the emergency department for evaluation. Patient had significant workup done in the hospital to include full stool evaluation for any infectious process which was unremarkable. CT scan did indicate signs of colitis in the proximal half of the transverse colon with submucosal edema. Patient was admitted the hospital and GI consultation was requested and performed. Patient did undergo colonoscopy which did indicate colitis, biopsies were taken. Patient did have internal hemorrhoids +1 external hemorrhoid that needed to be clipped. The patient's stay her hemoglobin was monitored and her hemoglobin did drop down to 7.8 and given that she had heme positive stools she is transfused 1 unit of packed red blood cells which her hemoglobin went back up to 10.1. Patient's hemoglobin has maintained stability since then. Patient was in the ICU secondary to continued hypotension secondary to hypovolemia from her nausea, vomiting, diarrhea. Patient was on electrolyte replacement protocol due to electrolyte loss from diarrhea. Patient was started on Questran and Lomotil with significant improvement. Patient was given multiple liters of fluid boluses as well as albumin infusions with improvement of her blood pressure. Patient does have history of chronic anemia which appears to be macrocytic. Hematology was consulted for further recommendations in reference to the patient's history of lymphoma, chronic anemia, pancytopenia. Patient was actually doing well and was transferred to the medical floor. However last evening the patient had acute onset of shortness of breath. There is no indication chest pain, abdominal pain, nausea, vomiting. Patient had significant workup performed which did indicate a acute troponin elevation, significant elevation of BNP. Chest x-ray did showed new findings of pulmonary edema, pulmonary angiogram was performed which did show significant pulmonary edema with bilateral pleural effusions. Patient was transferred back to the ICU due to acute hypoxic respiratory failure. Patient was requiring 6 L nasal cannula maintain O2 saturations greater than 92%. Upon review of the EKGs it does appears patient had acute changes with Q-wave presentation in the inferior leads. Due to the patient's respiratory failure, significant hypotension, acute myocardial infarction, acute cardiomyopathy, acute congestive heart failure critical care consultation was requested for management in the ICU. 03/09: Currently on norepinephrine drip at 8 mcg/min. Complaining of being slightly short of breath. Current x-ray revealed tiny pleural effusions. Abdominal pain control. 03/10: florid cardiogenic shock. lactate 13. altered. acutely agitated. going into respiratory failure. emergently intubated (see procedure note for details) . scvo2 from central line of 12%. transferred to CVICU. placed arterial, central lines and PA catheter. CI 1.6. 4mg bumex iv x 1 with bumex drip at 2mg/ hr. started milrinone and epinephrine drips. no adequate uop. Dr. Hewitt came in and emergently [facility]: clean coronaries. placed impella. uop began to fruit or nut picker after impella. right leg without dopplerable signals after impella, but cap refill present (sluggish, but present). patient still follows commands. lactate peaked at 19, now downtrending. fio2 90% on peep 10. pulmonary edema. 03/11: Condition remains critical with guarded prognosis. Remains in profound shock. Now cardiogenic hypovolemic, hemoglobin 5.4-3 unit PRBC stat ordered, with calcium replacement. Currently remains on the fentanyl and Versed for sedation. Also on epinephrine 3 mcg/min, milrinone 0.375 mcg/kg/min, Levophed 20 mcg/min and vasopressin 0.04 international units. Heparin held due to supratherapeutic INR. Lactate continues to trend down last 4.4. Mixed venous gases pending at this time. Impella R groin, P level 6, Flow 2.9 L/min, sig 88/ 59. UO over last 12 hours is 4L. 03/12: Patient still remains extremely critical and in profound shock currently cardiogenic and hemorrhagic shock. Hemoglobin today 5 severely coagulopathic getting blood and blood products. Liver ultrasound confirms liver cirrhosis. Currently on Levophed, milrinone, vasopressin, and amiodarone infusions. Impala reading 106/75, 3.0 L/min. PAC CI 2.6, SVR decreased 979. CVP 10. Bedside echo confirms impaired left pigtail positioning towards apex, LVEF appears 20% also evidence of RV dysfunction. Bilirubin is 8.3 today INR 1.5 PTT 38.2. Unable to anticoagulate due to life-threatening hemorrhage from right groin impeller site and lower GI bleed. Patient's right lower extremity is mottled pulseless nonfunctional now. Prognosis is extremely guarded. I discussed with options. He had given me history that patient drinks about 8 shots of vodka daily and smokes 2 packs of cigarettes per day. On further discussion he stated to me that he cannot by any means see her by going on an LVAD or getting a heart transplant given her habits. He refuses a transfer to a heart transplant/LVAD center after our discussion 03/12: Remains critical still requiring inotropic pressor and Impella support. Performance level was increased to 8 at 4 AM today currently flow 3.4 L/min. Blood pressure 119/81. Urine output 2.5 L/min creatinine is 1.6. Remains grossly fluid positive will give 1 dose of Lasix 20 mg 1. Hemoglobin is 7.4 platelets 57 INR 1.6. Blood and blood product transfusions ordered. Right leg remains without pulse mottled. Palliative care involved currently alternate code. Levophed currently decreased to 6 mcg/min but remains on milrinone and vasopressin and amiodarone gtt. unable to start tube feeding due to GI bleed and high pressor requirement. There is a slight decrease in the right groin bleeding, but patient continues to have lower GI bleed 03/14: Patient continues to require pressors and Impella for cardiac support. This morning, the Impella was alarming an an aortic waveform was noted on the monitor; a stat bedside echo showed that the device had pulled back and was approximately 2 cm from the aortic valve. The pigtail was advanced by Dr. Pickett under echo guidance, waveform and MAP improved, no further alarms noted. The patient continues to have bleeding from the right groin access site and per rectum. Flolan stopped this morning around 6:30 AM. 03/15: Less bleeding noted from femoral line, more rectal bleeding/ blood clots being suctioned from ETT as per RN. Weaning impella today. I had a long conversation with the patient's , son, and [id number]. Previously, they had decided to make the patient an alternate code (no chest compressions or defibrillation but continued intubation). We discussed her many active issues, including cardiogenic shock, ongoing blood loss anemia requiring frequent transfusions, liver failure, vent-dependent respiratory failure, and malnutrition. I explained that the Impella is eventually going to cause more complications as she is unable to be anticoagulated, and that her cardiac function has not recovered with Impella and ionotropic support. I also explained that once we stop the Impella, I can give more medications to try to support her heart function chemically, but that I don't think she has enough cardiac reserve to be able to maintain her blood pressure even with medications. The patient's then asked about what we can do to "just make her comfortable". I explained that we could either continue with her current management (minus Impella support), or that we can focus on comfort-based measures and compassionate extubation. Her family agrees that comfort care and withdrawal of life-sustaining measures is consistent with the patient's wishes and would like to proceed with compassionate extubation. I spoke with the palliative care team, who will help with this transition. I offered to call pastoral care for the family but they declined. Palliative care forms signed. Case discussed with cardiology. Patient made comfortable. impella discontinued. patient comfortably. - Additional Data Attending physician: Nate Thompson MD
== END 2018-03-16 01:00 | disposition expired ==
LOC: PHEDA 09:22 → PHED 09:22 → PH3 15:49 → PHICU 03-03 03:31 → PH3 03-06 14:04 → PHICU 03-06 22:52 → HIMC 03-07 15:15 → HCVI 03-10 10:35
PROVIDERS: ADMIT Internal Medicine; ATTEND Internal Medicine
PROC: PANENDO (2018-03-05 07:04)
PROC: COLONOS (2018-03-05 07:04)